=== PATIENT | male | born 1955 | race Caucasian/White ===

== ENCOUNTER 2020-04-25 12:54 | Outpatient (CLI) | payer MEDICARE, MEDICAID, SELFPAY ==
--- NOTE | ~2020-04-25 | CT_ITS ---
EXAMINATION:CT chest w con DATE: 04/25/2020 13:31 INDICATION: Pneumonia, unspecified organism. TECHNIQUE: Computed tomography (CT) of the chest was performed with 75 mL Omnipaque 350 intravenous c ontrast. Automated exposure control and iterative reconstruction technique were employed. The dose-le ngth product (DLP) was 142.68 mGy-cm. COMPARISON: None. FINDINGS: There is moderate emphysema. There is mild bronchiectasis in the inferior lungs. There are reticular and groundglass opacities with volume loss in the basilar lower lobes and lingula, likely a telectasis. There are groundglass and airspace opacities with volume loss in right middle lobe, consi stent with atelectasis versus pneumonia. Calcified bilateral lung nodules are consistent with old gra nulomatous disease. There are airspace opacities at the lung apices. There is mild atelectasis in the upper lobes. No pleural effusion. There is a large sliding hiatal hernia. There is mild atrophy of t he kidneys. The heart size is normal. There are coronary artery calcifications. No pericardial effusi on. There is mild intrahepatic biliary duct dilatation. The common duct is dilated to 21 mm. The visu alized portion of the gallbladder is normal. There is 13 degrees dextroscoliosis of thoracolumbar spi ne. There is severe cervical spondylosis and moderate thoracic spondylosis. There are chronic vertebr al body fractures at most levels of thoracic spine. A burst fracture of T7 with 3/5 loss of height ma y be subacute or chronic. A burst fracture of T12 with 2/5 loss of height and retropulsion of bone 3 mm into central spinal canal may be subacute or chronic. IMPRESSION: 1. Mild atelectasis versus pneumonia in right middle lobe. 2. Airspace opacities at the lung apices, most likely scarring. Comparison with outside imaging is re commended to exclude any change to suggest malignancy. 3. Moderate emphysema. 4. Large sliding hiatal hernia. Reviewed, dictated and finalized at location A. UNDERWRITER IMPRESSION: 1. Mild atelectasis versus pneumonia in right middle lobe. 2. Airspace opacities at the lung apices, most likely scarring. Comparison with outside imaging is recommended to exclude any change to suggest malignancy. 3. Moderate emphysema. 4. Large sliding hiatal hernia.
[2020-04-25 13:25] LABS: Estimated Glomerular Filt Rate 41
== END 2020-04-25 12:55 | disposition home or self-care (01) ==
PROVIDERS: PCP Family Medicine; Visit Provider Internal Medicine Critical Care Medicine
DX: J18.9 Pneumonia, unspecified organism (principal); J43.9 Emphysema, unspecified; K44.9 Diaphragmatic hernia without obstruction or gangrene
CPT/HCPCS: 71260; Q9967

== ENCOUNTER 2020-05-02 12:36 | Outpatient (CLI) | payer MEDICARE, MEDICAID, SELFPAY ==
[2020-05-02 13:28] LABS: Anion Gap 10 mmol/L (8-16); Blood Urea Nitrogen 23 mg/dL (9-20); Calcium 9.2 mg/dL (8.4-10.2); Carbon Dioxide 29 mmol/L (22-30); Chloride 98 mmol/L (98-107); Estimated Glomerular Filt Rate 55; Glucose 90 mg/dL (75-110); Potassium 3.1 mmol/L (3.4-5.0); Sodium 137 mmol/L (137-145)
== END 2020-05-02 12:37 | disposition home or self-care (01) ==
PROVIDERS: PCP Family Medicine; Visit Provider Internal Medicine Critical Care Medicine
DX: B19.20 Unspecified viral hepatitis C without hepatic coma (principal); Z79.899 Other long term (current) drug therapy
CPT/HCPCS: 36415; 80048

== ENCOUNTER 2020-06-21 11:50 | Emergency (ER) | payer MEDICARE, MEDICAID, SELFPAY ==
--- NOTE | ~2020-06-21 | XR_ITS ---
EXAMINATION: XR ribs RT 2V DATE: 06/21/2020 12:24 INDICATION: Posterior right rib pain post fall TECHNIQUE: 3 views of the right ribs were obtained. COMPARISON: Chest CT dated 04/25/2020 FINDINGS: Nondisplaced fractures of the anterior right 8th - 11th ribs. A few small calcified nodules in the ri ght lung consistent with old granulomatous disease. No focal airspace opacities, pulmonary edema, ple ural effusion or pneumothorax. Heart size is normal. Large hiatal hernia. Multiple chronic thoracic a nd lumbar compression and burst fractures. IMPRESSION: 1. Nondisplaced anterior right 8th - 11th rib fractures. No acute cardiopulmonary disease. 2. Large hiatal hernia. 3. Multiple chronic thoracic and lumbar compression and burst fractures. Reviewed, dictated and finalized at location B. S SANDER [employer]T IMPRESSION: 1. Nondisplaced anterior right 8th - 11th rib fractures. No acute cardiopulmona ry disease. 2. Large hiatal hernia. 3. Multiple chronic thoracic and lumbar compression and burst fractures.
[2020-06-21 11:58] VITALS: BP 115/86; PULSE 87; RESP 16; TEMP 36.8; O2SAT 95
--- NOTE | 2020-06-21 12:09 | ED.FALL ---
HPI - Fall General Chief Complaint: Fall Stated Complaint: rib pain from fall Time Seen by Provider: 06/21/20 12:09 Source: patient and RN notes reviewed History of Present Illness HPI Narrative: Patient is a 65-year-old male who presents the urgent care with complaints of right rib pain. Patient states that he fell against the armrest of the couch yesterday while trying to get up off the couch, and his right leg giving out. Patient states that he slammed down fairly hard on the armrest and has been using Aleve/ice for pain control. Patient denies of any shortness of breath. States that it is difficult to take a deep breath/use inhalers, due to the pain. No other acute complaints. No acute distress noted. Patient aware of the plan of care. Some parts of this dictation were generated by voice recognition software and may contain typographical and/or grammatical inaccuracies. Related Data Home Medications Medication Instructions Recorded Confirmed methadone 10 mg tablet 10 mg PO Q6H 01/24/20 06/21/20 Allergies Allergy/AdvReac Type Severity Reaction Status Date / Time No Known Allergies Allergy Verified 06/21/20 12:09 Review of Systems Review of Systems: Narrative: CONSTITUTIONAL: Denies fever, chills, or sweats. EYES: Denies visual changes, redness, or discharge. ENT: Denies rhinorrhea, congestion, sore throat, or otalgia. CARDIOVASCULAR: Denies chest pain, palpitations, or edema. RESPIRATORY: Denies cough or dyspnea. GASTROINTESTINAL: Denies abdominal pain, nausea, vomiting, or diarrhea. GENITOURINARY: Denies dysuria or hematuria. SKIN: Denies rash or itching. MUSCULOSKELETAL: Reports of right sided rib pains. Denies back pain, joint pain, or myalgia. NEUROLOGIC: Denies headache, numbness, or weakness. All other systems reviewed are negative, except as documented in HPI. [facility] Past Medical History Medical History (Updated 06/21/20 @ 12:43 by NANDA Bain) Anxiety Arthritis COPD (chronic obstructive pulmonary disease) Drug abuse and dependence Legionella pneumonia Prostate disorder Thyroid disorder Family History Family History Mother No problems noted. Father Emphysema, unspecified Grandparent AA (alcohol abuse) Sibling No problems noted. Social History Social History Smoking packs per day: 2 Smoking cigarettes per day: 40.0 Years smoked: 30 Smoking pack-years: 60.00 Smoking status: Former smoker Tobacco type: e-cigarettes/vaping Alcohol intake: former Drinks per week: 0 Substance use: former Substance use type: does not use and IV drugs Comments At the time of my signature, I reviewed and agree with the nursing past medical, surgical, social, and family history. There is no relevant family history pertinent to the patient complaint. Exam Narrative: Exam Narrative: GENERAL: This is a well-nourished, well-developed patient, in no apparent distress. HEAD: normocephalic, atraumatic. EYES: PERRL. Sclera clear/white. Vision is grossly intact. EARS: External ears normal NOSE: External nose normal with no obvious nasal discharge, nares without redness, no rhinorrhea. THROAT: Mucous membranes moist NECK: Neck supple CARDIOVASCULAR: Regular rate and rhythm without murmurs, gallops, or rubs. RESPIRATORY: Clear to auscultation. Breath sounds equal bilaterally. No wheezes, rales, or rhonchi. SKIN: warm, intact with no suspicious lesions or rash, good texture and turgor. NEURO: awake, alert, and oriented to person, place and time. There were no obvious focal neurologic abnormalities. EXTREMITIES: No clubbing, cyanosis, or edema. BACK: Mild tenderness to posterior right rib cage, and thoracic region. Course Vital Signs Vital signs: Vital Signs Temperature 98.2 F 06/21/20 11:58 Pulse Rate 87 06/21
[2020-06-21 12:13] VITALS: BP 115/86; PULSE 87; RESP 16; TEMP 36.8; O2SAT 95
== END 2020-06-21 12:48 | disposition home or self-care (01) ==
PROVIDERS: Emergency Provider Nurse Practitioner Family; PCP Family Medicine
DX: S22.41XA Multiple fractures of ribs, right side, initial encounter for closed fracture (principal); W19.XXXA Unspecified fall, initial encounter; M19.90 Unspecified osteoarthritis, unspecified site; J44.9 Chronic obstructive pulmonary disease, unspecified; F32.9 Major depressive disorder, single episode, unspecified; F41.9 Anxiety disorder, unspecified; K21.9 Gastro-esophageal reflux disease without esophagitis; E03.9 Hypothyroidism, unspecified
CPT/HCPCS: 71100; 99213; G0463

== ENCOUNTER 2020-08-07 10:06 | Outpatient (CLI) | payer MEDICARE, MEDICAID, SELFPAY ==
--- NOTE | 2020-08-07 10:18 | ECG_ITS ---
Measurements Intervals [place] Rate: 62 P: 66 NH: 134 QRS: 54 QRSD: 98 T: 14 QT: 420 QTc: 429 Interpretive Statements SINUS RHYTHM DELAYED PRECORDIAL R/S TRANSITION BORDERLINE T WAVE ABNORMALITY- INFERIOR LEADS BASELINE ARTIFACT- I, II, III, AVR, AVL, AVF, V1-V6 BORDERLINE ECG Electronically Signed On 08-07-2020 10:36:46 CDT by Yrn Dubois D.O.
== END 2020-08-07 10:07 | disposition home or self-care (01) ==
LOC: ANHSURGERY 10:12
PROVIDERS: PCP Family Medicine; Visit Provider Surgery
DX: Z01.810 Encounter for preprocedural cardiovascular examination (principal); K40.90 Unilateral inguinal hernia, without obstruction or gangrene, not specified as recurrent; Z87.891 Personal history of nicotine dependence
CPT/HCPCS: 36415; 86850; 86900; 86901; 93005

== ENCOUNTER → 2020-08-10 01:59 | Outpatient (CLI) | payer MEDICARE, MEDICAID, SELFPAY ==
[2020-08-10 19:28] LABS: SARS-CoV-2 RNA PCR Negative
== END ==
PROVIDERS: PCP Family Medicine; Visit Provider Surgery
DX: Z01.812 Encounter for preprocedural laboratory examination (principal); Z20.822 Contact with and (suspected) exposure to COVID-19
CPT/HCPCS: C9803; U0003; U0005

== ENCOUNTER 2020-08-13 01:50 | Day surgery (SDC) | payer MEDICARE, MEDICAID, SELFPAY ==
[2020-08-06 13:25] VITALS: BMI 19.3
[2020-08-13] VITALS (11 sets, daily range): BP systolic 117–142; BP diastolic 70–99; PULSE 70–101; RESP 12–16; TEMP 36.2–36.4; O2SAT 94–99
[2020-08-13] MEDS: ACETAMINOPHEN 500 MG TABLET 1000 MG PO (08:10)
--- NOTE | 2020-08-13 08:11 | WPDANESEPPF ---
Anes - Initial Pre Proc Eval Procedure: Operation Date: 08/13/20 09:30 Proposed Procedures p Robotic Assisted Laparoscopic Right Inguinal Hernia Repair with Mesh - Katerine Kevin MD Date/Time: 08/13/20 08:11 Surgeon: Katerine Kevin MD Pre Op Diagnosis: right inguinal hernia W/O obstruction or gangrene Patient Data Age: 65 Gender: M Height: 5 ft 10 in Weight: 60.5 kg Allergies Allergy/AdvReac Type Severity Reaction Status Date / Time No Known Allergies Allergy Verified 08/13/20 07:55 Home Medications Medication Instructions Recorded Confirmed Type methadone 10 mg tablet 120 mg PO DAILY 01/24/20 08/13/20 History fluticasone furoate 100 1 inh INHALATION DAILY #30 ea 04/06/20 08/13/20 Rx mcg-vilanterol 25 mcg/dose inhalation powder umeclidinium 62.5 mcg/actuation 1 inh INHALATION DAILY #30 ea 04/06/20 08/13/20 Rx blister powder for inhalation omeprazole 20 mg capsule,delayed 20 mg PO DAILY #30 cap 05/07/20 08/06/20 Rx release albuterol sulfate 90 mcg/actuation 2 puff INHALATION Q4H PRN #18 gm 05/14/20 08/06/20 Rx aerosol inhaler levothyroxine 75 mcg tablet 75 mcg PO DAILY #30 tablet 06/08/20 08/13/20 Rx sertraline 100 mg tablet 100 mg PO DAILY #90 tablet 06/15/20 08/13/20 Rx clonazepam 0.5 mg tablet 0.5 mg PO TID PRN #90 tablet 06/22/20 08/13/20 Rx tamsulosin 0.4 mg capsule See Rx Instructions .ROUTE 07/30/20 08/06/20 Rx .COMPLEX #60 cap celecoxib 200 mg PO HS 08/06/20 08/13/20 History mirtazapine 15 mg PO HS 08/06/20 08/13/20 History ufjgldlf-qoa-QF-lycopen-lutein 1 tablet PO DAILY 08/06/20 08/13/20 History [Complete Men 50 Plus] potassium chloride 10 meq PO HS 08/06/20 08/06/20 History Patient hx anesthesia problems: none Family hx anesthesia problems: none PMFSH Past Medical History Medical History Anxiety Arthritis COPD (chronic obstructive pulmonary disease) Drug abuse and dependence Legionella pneumonia Prostate disorder Thyroid disorder Family History Family History Mother No problems noted. Father Emphysema, unspecified Grandparent AA (alcohol abuse) Sibling No problems noted. Social History Social History Smoking packs per day: 2 Smoking cigarettes per day: 40.0 Years smoked: 30 Smoking pack-years: 60.00 Smoking status: Former smoker Tobacco type: cigarettes and e-cigarettes/vaping Smoking end date: 05/25/12 Additional smoking assessment comments: CURRENTLY E-CIGARETTES/VAPING Alcohol intake: former Drinks per week: 0 Alcohol use details: QUIT DRINKING 2012 Substance use: former Substance use type: former substance user Last use: 2004 Living arrangements: with family Spiritual care concerns: No Anes - Eval Final PreProcedure Day of Procedure 08/13/20 08:11 Patient weight: normal Heart: regular rate and rhythm Lungs: clear to auscultation Airway: Mallampati scale class II Neurological: alert and oriented Last oral intake: >/= 8 hours ASA classification: III Emergent: no Anesthetic plan: proceed Anesthesia type and monitoring: general ETT and standard monitoring Informed Consent: The patient's anesthetic plan and its attendant risks and benefits were discussed with the patient/family/POA. Questions were solicited and answers provided to the satisfaction of the patient/family/POA.
[2020-08-13] MEDS: LACTATED RINGERS 1,000 ML 30 ML IV CONT ×2 (08:18→11:15)
[2020-08-13] MEDS: KETOROLAC 15 MG/ML VIAL (*BKC) IV PUSH (08:20)
--- NOTE | 2020-08-13 08:26 | WPDHPUPDATE1 ---
History and Physical Update Update Date/Time: 08/13/20 08:26 History and Physical has been reviewed, including an updated exam of the patient. There are NO changes in the patient's condition. Risks, benefits, and alternatives have been discussed and questions answered. Patient agrees to proceed with procedure.
[2020-08-13] MEDS: ceFAZolin 2 GM/D5W 50 ML 2 GM/50 ML BAG IVPB (08:32)
[2020-08-13] MEDS: BUPIVACAINE/EPINEPHRINE 0.5% 30 ML VIAL INFILTRATE (08:56)
--- NOTE | 2020-08-13 10:30 | PM.PROC ---
Procedure Note - Detailed Date of procedure: 08/13/20 Pre-op diagnosis: right inguinal hernia W/O obstruction or gangrene Post-op diagnosis: same Procedure performed: robotic assisted right inguinal hernia repair Description of procedure: Patient was brought into the operating room and placed in the supine position. After adequate induction of general anesthesia, the patient was prepped and draped in normal sterile fashion. A time-out was then done to verify the patient's identity, as well as the procedure being performed. Began by making a 8 mm incision in the supraumbilical region, a Veress needle was then placed into the peritoneal cavity. CO2 gas was then insufflated and after adequate pneumoperitoneum was achieved, the Veress needle was removed. I then placed an 8 mm trocar through this incision. I then placed the endoscope through this trocar site and under direct visualization placed 2 further 8 mm ports in the right and left mid abdomen. The [employer] robot was then docked to the 3 trocar sites. I then scrubbed out and went to the robotic console. Upon examining the pelvis, it was noted that the patient had a large right inguinal hernia. I began by making a preperitoneal flap approximately 6 cm superior to the defect. This flap was carried medially past the umbilical ligaments in laterally to the transversalis. It then began dissection of my medial compartment taking this down to the pubic tubercle. I then began the lateral dissection taking this down to the transversalis fascia. Once these compartments were achieved, I began dissection around the cord structures. It was noted at this point that the patient had a indirect hernia. Patient also had a large lipoma the cord. Using careful dissection, was able to reduce the lipoma cord as well separate the indirect hernia off the cord structures. Once this was adequately done, I went ahead and placed a 15 x 10 piece of Pro Rejoiner mesh into the abdominal cavity. The mesh was carefully positioned, centering the center of the mesh over the indirect defect. Once this was done, was very satisfied with our repair. I then closed the peritoneal flap with a running 2.0 V Lock suture. The abdomen was then desufflated, and all ports were removed. All incisions were then closed with the 4.0 monocryl suture. Dermabond was placed on each wound. The patient tolerated the procedure well, was extubated in the operating room postoperatively, and will now be transferred to the recovery room in stable condition. Implants: 15 x 10 progrip mesh Anesthesia: GETA Surgeon: Katerine Kevin MD Estimated blood loss (mL): 5 Drains: No Packing: No Pathology: none sent Complications: No immediate complications Condition: stable Disposition: PACU Findings: indirect RIH c large lipoma of the cord
[2020-08-13] MEDS: fentaNYL CITRATE INJ (*CRX) 100 MCG/2 ML VIAL 25 MCG IV PUSH ×2 (11:34→11:40)
== END 2020-08-13 13:14 | disposition home or self-care (01) ==
PROVIDERS: PCP Family Medicine; Visit Provider Surgery
PROC: 8E0Y4CZ Robotic Assisted Procedure of Lower Extremity, Percutaneous Endoscopic Approach (ICD-10-PCS; CPT 49650; principal; 2020-08-13 09:30)
DX: K40.90 Unilateral inguinal hernia, without obstruction or gangrene, not specified as recurrent (principal); Z79.51 Long term (current) use of inhaled steroids; F41.9 Anxiety disorder, unspecified; M19.90 Unspecified osteoarthritis, unspecified site; J44.9 Chronic obstructive pulmonary disease, unspecified; N42.9 Disorder of prostate, unspecified; E07.9 Disorder of thyroid, unspecified; Z87.891 Personal history of nicotine dependence; B19.20 Unspecified viral hepatitis C without hepatic coma; F19.20 Other psychoactive substance dependence, uncomplicated
CPT/HCPCS: 49650; S2900; 36415; 86850; 86900; 86901; 93005; A9270; C1781; C9803; J0330; J0690; J1100; J1885; J2370; J2405; J2704; J2710; J3010; J7030; J7120; U0003; U0005

== ENCOUNTER 2020-10-09 11:01 | Outpatient (CLI) | payer MEDICARE, MEDICAID, SELFPAY ==
--- NOTE | ~2020-10-09 | CT_ITS ---
EXAMINATION: CT diagnostic chest wo con DATE: 10/09/2020 11:21 INDICATION: Pneumonia, unspecified organism TECHNIQUE: Computed tomography (CT) of the chest was performed without intravenous contrast. The dose -length product (DLP) was 428.99 mGy-cm. Automated exposure control and iterative reconstruction tech nique were employed. COMPARISON: 04/25/2020 FINDINGS: Airspace opacities of the lung apices persists without significant change. There is moderat e emphysema. There is a new 7 mm groundglass nodule of the right middle lobe on image 42. A new 12 mm nodule of the lingula seen on image 46. There are persistent but decreased groundglass opacities in the mid and lower lung zones. There is a large sliding hiatal hernia. There are mildly enlarged preca rinal and right lower paratracheal lymph nodes. The heart size is normal. There is no pleural effusio n or pneumothorax. Calcified coronary artery atherosclerosis is noted. Multiple stable thoracic verte bral body fractures are again seen. IMPRESSION: 1. Stable airspace opacities of the lung apices, likely scarring. 2. Waxing and waning opacities in the mid and lower lung zones including new nodules in the right mid dle lobe and lingula, likely chronic infection. 3. Mild mediastinal lymphadenopathy, likely reactive. 4. Large sliding hiatal hernia. Reviewed, dictated and finalized at location A. IMPRESSION: 1. Stable airspace opacities of the lung apices, likely scarring. 2. Waxing and waning opacities in the mid and lower lung zones including new no dules in the right middle lobe and lingula, likely chronic infection. 3. Mild mediastinal lymphadenopathy, likely reactive. 4. Large sliding hiatal hernia.
== END 2020-10-09 11:02 | disposition home or self-care (01) ==
PROVIDERS: PCP Family Medicine; Visit Provider Nurse Practitioner Family
DX: J18.9 Pneumonia, unspecified organism (principal); K44.9 Diaphragmatic hernia without obstruction or gangrene
CPT/HCPCS: 71250

== ENCOUNTER 2020-11-02 10:57 | Outpatient (CLI) | payer MEDICARE, MEDICAID, SELFPAY | END 2020-11-02 10:58 | disposition home or self-care (01) | PROVIDERS: PCP Family Medicine; Visit Provider Nurse Practitioner Family | DX: R09.3 Abnormal sputum (principal) | CPT/HCPCS: 87070; 87077; 87186; 87205 ==

== ENCOUNTER 2020-11-30 10:48 | Outpatient (CLI) | payer MEDICARE, MEDICAID, SELFPAY | END 2020-11-30 10:49 | disposition home or self-care (01) | LOC: ANHLAB 10:53 | PROVIDERS: PCP Family Medicine; Visit Provider Nurse Practitioner Family | DX: R09.3 Abnormal sputum (principal); J18.9 Pneumonia, unspecified organism | CPT/HCPCS: 87070; 87077; 87186; 87205 ==

== ENCOUNTER 2020-12-03 15:19 | Outpatient (CLI) | payer MEDICARE, MEDICAID, SELFPAY ==
--- NOTE | ~2020-12-03 | US_ITS ---
EXAMINATION: US renal BI EXAM DATE: 12/03/2020 15:49 INDICATION: Acute injury to kidney. TECHNIQUE: Multiple grayscale and Doppler images of the kidneys were obtained (by a technologist who performed the scan) and subsequently reviewed. There is no prior study for comparison. FINDINGS: There is bilateral renal cortical thinning. Right kidney: There is normal contour and echogenicity. It measures 7.4 x 4.6 x 3.8 centimeters. Th ere are no focal renal lesions identified. There is no hydronephrosis. Left kidney: There is normal contour and echogenicity. It measures 7.8 x 4.4 x 4.6 centimeters. The re are no focal renal lesions identified. There is no hydronephrosis. The bladder is undistended, with wall measuring 7 mm at least partly due to undistended state. IMPRESSION: 1. Bilateral renal cortical thinning, and decreased kidney measured measurements, renal atrophy. 2. No hydronephrosis. Reviewed, dictated and finalized at location A. IMPRESSION: 1. Bilateral renal cortical thinning, and decreased kidney measured measuremen ts, renal atrophy. 2. No hydronephrosis.
== END 2020-12-03 15:20 | disposition home or self-care (01) ==
LOC: ANHIMG 15:20
PROVIDERS: PCP Family Medicine; Visit Provider Internal Medicine Nephrology
DX: J42 Unspecified chronic bronchitis (principal); K21.9 Gastro-esophageal reflux disease without esophagitis; N17.9 Acute kidney failure, unspecified; E03.9 Hypothyroidism, unspecified; Z72.0 Tobacco use; N26.1 Atrophy of kidney (terminal)
CPT/HCPCS: 76775

== ENCOUNTER 2020-12-25 11:05 | Outpatient (CLI) | payer MEDICARE, MEDICAID, SELFPAY ==
[2020-12-25 19:48] LABS: Basophils Absolute Auto 0.1 K/mm3 (0.0-0.1); Eosinophils Absolute Auto 0.4 K/mm3 (0-0.3); Eosinophils Percent Auto 4.3 % (0-4.4); Hematocrit 42.9 % (42.0-52.0); Hemoglobin 13.3 g/dL (14.0-18.0); Immature Granulocyte Absolute 0.07 K/mm3 (0.00-0.031); Immature Granulocyte Percent A 0.8 % (0-0.5); Lymphocytes Percent Auto 11.9 % (18.3-44.2); Mean Corpuscular Hemoglobin 29.6 pg (26-34); Mean Corpuscular Volume 95.5 fl (80-100); Mean Platelet Volume 10.2 fl (7.4-10.4); Monocytes Absolute Auto 0.5 K/mm3 (0.1-0.6); Monocytes Percent Auto 6.1 % (2.6-8.5); Neutrophils Absolute Auto 6.4 K/mm3 (1.3-6.7); Neutrophils Percent Auto 75.9 % (45.5-73.1); Platelet Count Result 166 k/mm3 (150-375); Red Blood Count 4.49 M/mm3 (4.6-6.20); Red Cell Distribution Width 13.8 % (11.5-14.5); White Blood Count 8.4 K/mm3 (4.5-10.0)
[2020-12-25 20:46] LABS: Hemoglobin A1C 5.2 % (<5.7)
[2020-12-25 21:03] LABS: Alanine Aminotransferase 17 U/L (4-50); Albumin Level 4.1 g/dL (3.5-5.1); Alkaline Phosphatase 71 U/L (38-126); Anion Gap 8 mmol/L (8-16); Aspartate Amino Transferase 31 U/L (17-59); Bilirubin,Total 0.6 mg/dL (0.2-1.3); Blood Urea Nitrogen 13 mg/dL (9-20); Calcium 9.5 mg/dL (8.4-10.2); Carbon Dioxide 25 mmol/L (22-30); Chloride 107 mmol/L (98-107); Cholesterol 208 mg/dL (0-200); Estimated Glomerular Filt Rate > 60; Glucose 78 mg/dL (65-110); HDL Direct 87 mg/dL; Sodium 140 mmol/L (137-145); Triglycerides 137 mg/dL (<150)
[2020-12-25 21:14] LABS: LDL Cholesterol Direct 92 mg/dL
[2020-12-25 21:33] LABS: Prostate Specific Antigen 0.5 ng/mL (< OR = 4.0)
== END 2020-12-25 11:06 | disposition home or self-care (01) ==
LOC: ANHBWCLAB 11:08
PROVIDERS: PCP Family Medicine; Visit Provider Family Medicine
DX: E07.9 Disorder of thyroid, unspecified (principal); F41.9 Anxiety disorder, unspecified; J44.9 Chronic obstructive pulmonary disease, unspecified; F19.20 Other psychoactive substance dependence, uncomplicated; Z12.5 Encounter for screening for malignant neoplasm of prostate; R73.09 Other abnormal glucose; Z79.899 Other long term (current) drug therapy
CPT/HCPCS: 36415; 80053; 80061; 83036; 84153; 84443; 85025; G0103

== ENCOUNTER 2021-03-15 13:02 | Emergency (ER) | payer MEDICARE, MEDICAID, SELFPAY ==
[2021-03-15 13:11] VITALS: BP 161/87; PULSE 79; RESP 20; TEMP 36.8; O2SAT 98
--- NOTE | 2021-03-15 13:31 | ED.ABDPAIN ---
HPI - Abdominal Pain General Chief Complaint: Abdominal Pain Stated Complaint: Abdominal Pain Time Seen by Provider: 03/15/21 13:32 Source: patient and RN notes reviewed Mode of arrival: ambulatory Limitations: no limitations History of Present Illness HPI narrative: 65-year-old male presents concern for periumbilical abdominal pain and mass. Reports history of inguinal hernia surgery in July, reports after the surgery that hernia popped out again, however was not painful. He reports over the last several days he has had new pain in the periumbilical area with a mass. He denies any vomiting. Reports nausea. Reports his last bowel movement was 2 days ago. He denies relieving factors. He denies fever. MD elicited complaint: abdominal pain Related Data Home Medications Medication Instructions Recorded Confirmed methadone 10 mg tablet 120 mg PO DAILY 01/24/20 10/10/20 Complete Men 50 Plus 1 tablet PO DAILY 08/06/20 10/10/20 celecoxib 200 mg PO HS 08/06/20 10/10/20 Allergies Allergy/AdvReac Type Severity Reaction Status Date / Time No Known Allergies Allergy Verified 12/25/20 10:13 Review of Systems Review of Systems: CONSTITUTIONAL: Denies malaise, chills, sweats, or fever. GASTROINTESTINAL: Reports periumbilical pain, nausea, constipation. Denies vomiting, diarrhea, bloody, or mucous stools. GENITOURINARY: Denies dysuria or hematuria. SKIN: Denies bruising, redness, warmth MUSCULOSKELETAL: Denies myalgia. All systems reviewed & are unremarkable except as noted in HPI and below PMFSH Past Medical History Medical History Anxiety Arthritis COPD (chronic obstructive pulmonary disease) Drug abuse and dependence Legionella pneumonia Prostate disorder Thyroid disorder Surgical History Surgical History H/O inguinal hernia repair robotic assisted right inguinal hernia repair Family History Family History Mother No problems noted. Father Emphysema, unspecified Grandparent AA (alcohol abuse) Sibling No problems noted. Social History Social History Smoking packs per day: 2 Smoking cigarettes per day: 40.0 Years smoked: 30 Smoking pack-years: 60.00 Smoking status: Current every day smoker Tobacco type: e-cigarettes/vaping Additional smoking assessment comments: CURRENTLY E-CIGARETTES/VAPING Alcohol intake: former Drinks per week: 0 Alcohol use details: QUIT DRINKING 2012 Substance use: former Substance use type: former substance user Last use: 2004 Spiritual care concerns: No Comments At time of signature, agree with nursing past medical, surgical, social and family history. There is no relevant family history pertinent to the presenting complaint Exam Narrative: GENERAL: Well-appearing, well-nourished, and in no acute distress. HEAD: Normocephalic, atraumatic. EYES: PERRLA, conjunctivae clear ENT: Nares clear. Mucous membranes moist. NECK: Supple. No lymphadenopathy CHEST: Speaks in full sentences. No respiratory distress. HEART: Regular rate and rhythm. ABDOMEN: Periumbilical mass noted, nonreducible with gentle pressure, tenderness, guarding. No rebound tenderness, or rigid. No pulsatilla masses. Bowel sounds present in all four quadrants. SKIN: Warm, dry, no rash. NEURO: Alert and oriented x3. PSYCH: Normal mood and affect Course Course Emergency Course: While waiting to be seen, patient spoke to his surgeon's office who suggested he be transferred to the emergency room. Patient is aware of diagnosis, understands and agrees to treatment plan. Anticipatory guidance given. Patient agrees to follow-up as directed and is aware of reasons to seek care at the emergency department. Portions of th
== END 2021-03-15 13:38 | disposition short-term general hospital (02) ==
PROVIDERS: Emergency Provider Nurse Practitioner; PCP Family Medicine
DX: K46.9 Unspecified abdominal hernia without obstruction or gangrene (principal); F17.290 Nicotine dependence, other tobacco product, uncomplicated; M19.90 Unspecified osteoarthritis, unspecified site; J44.9 Chronic obstructive pulmonary disease, unspecified; N42.9 Disorder of prostate, unspecified; E07.9 Disorder of thyroid, unspecified; F41.9 Anxiety disorder, unspecified
CPT/HCPCS: 99212; G0463

== ENCOUNTER 2021-03-15 14:33 | Inpatient (IN) | payer MEDICARE, MEDICAID, SELFPAY ==
--- NOTE | ~2021-03-15 | MR_ITS ---
EXAMINATION: MR MRCP wo/w con/w 3D wo ind DATE: 03/16/2021 10:46 INDICATION: Cholelithiasis, biliary dilatation on CT TECHNIQUE: Magnetic resonance imaging (MRI) of the abdomen was performed without and with intravenous contrast. Sequences included coronal T2-weighted SS-FSE ARC, coronal T2-weighted FS SS-FSE, coronal T2-weighted 2D FS FIESTA, Water:Coronal LAVA-Flex, sagittal T2-weighted SS-FSE ARC, axial SSFSE ARC, axial 3D DualEcho, axial DWI B=600, axial T1-weighted LAVA, FAT:Coronal LAVA-Flex, and coronal in and opposed phase LAVA-Flex. Thick-slab T2-weighted FRFSE-XL images were obtained for magnetic resonance cholangiopancreatography (MRCP). Maximum intensity projection 3-D reconstructions of the volumetric data were created by the technologist. Postcontrast sequences included a time course of axial T1-weig hted LAVA, FAT:Coronal LAVA-Flex, coronal in and opposed phase LAVA-Flex, and Water:Coronal LAVA-Flex . COMPARISON: CT, 03/15/2021, 04/25/2020 CONTRAST: Multihance, 10 cc FINDINGS: ABDOMEN MRI: There is a large sliding hiatal hernia. The liver, spleen, pancreas, gallbladder, and ad renal glands are normal. There is a 1.5 cm cyst of the left kidney. Cysts of the right kidney measure up to 2 mm. There are no pathologically enlarged abdominal lymph nodes. There are no dilated loops o f bowel. There is a tiny umbilical hernia containing fat and ascites. An enhancing 1.8 cm soft tissue density protrudes into the bladder base as described on CT. This is at the inferior margin of the im aged anatomy and incompletely characterized. Chronic burst and compression fractures of the thoracic and lumbar spine are again noted. ABDOMEN MRCP: Respiratory motion artifact limits the MRCP sequences. There is intrahepatic and extrah epatic biliary dilatation with the common bile duct measuring up to 2.2 cm. When compared with a CT 2019, this appears to be a chronic finding. The distal common bile duct demonstrates an acute cur vature before entering the ampulla. There is a questionable 2 mm stone of the distal common bile duct . IMPRESSION: 1. Intrahepatic and extrahepatic biliary dilatation with possible 2 mm stone of the distal common evi e duct. 2. Large sliding hiatal hernia. 3. 1.8 cm soft tissue density projecting into the bladder base, incompletely characterized. Consider direct visualization. Reviewed, dictated and finalized at location A. IMPRESSION: 1. Intrahepatic and extrahepatic biliary dilatation with possible 2 mm stone of the distal common bile duct. 2. Large sliding hiatal hernia. 3. 1.8 cm soft tissue density projecting into the bladder base, incompletely ch aracterized. Consider direct visualization.
--- NOTE | ~2021-03-15 | CT_ITS ---
EXAMINATION: CT abdomen pelvis w con DATE: 03/15/2021 16:30 INDICATION: Bowel perforation TECHNIQUE: Computed tomography (CT) of the abdomen and pelvis was performed with 100 mL Omnipaque-350 intravenous contrast. Automated exposure control and iterative reconstruction technique were employe d. The dose-length product was 302.52 mGy-cm. COMPARISON: PET/CT dated 10/09/2020 FINDINGS: Emphysema at the lung bases. Compressive atelectasis at the medial left lower lobe along side a large included visualized sliding-type hiatal hernia. Heart size normal. Atherosclerotic coronary artery c alcification. No pericardial or pleural effusion. Gallbladder is normal. Common bile duct is dilated to 1.5 similar with mild intrahepatic biliary duct al dilation. Suggestion of obstructing stone/stones at the distal common bile duct. Couple tiny dystr ophic calcifications at the head and body of the pancreas likely sequela of chronic pancreatitis. No peripancreatic inflammatory stranding to suggest acute interstitial pancreatitis. Spleen and bilatera l adrenal glands are normal. Bilateral low-attenuation renal cysts the largest on the left measuring 1.4 cm. Normal appendix. No bowel obstruction. 1.8 cm enhancing nodule at the base of the bladder projecting into the lumen, unclear whether this arises from the bladder wall or from the underlying prostate wit h their multiple metallic either surgical clips or radiotherapy seeds. There are a few posterior blad felipe diverticula, one on the left containing a bladder stone. There is asymmetric thickening of the di stalmost left ureter. Small fat-containing umbilical and left inguinal hernias. There is calcified atherosclerosis of the a tyrese and many of the other arteries. No free intraperitoneal gas or fluid. No pathologically enlarged abdominal or pelvic lymphadenopathy. Mild thoracolumbar dextroscoliosis with mild to moderate spondy losis. Diffuse osteopenia. Chronic mild T12 and L3 compression fractures and L1 burst fracture with m ild anterior vertebral body height loss and 3-4 mm retropulsion resulting in mild central canal steno sis. Severe right and mild to moderate left hip osteoarthritis.. IMPRESSION: 1. Intra and extra hepatic biliary ductal dilation with suggestion of possible stones in the distal c ommon bile duct. Correlate with liver function tests and consider MRCP for further evaluation. Althou gh there is no peripancreatic inflammatory stranding there are tiny dystrophic pancreatic parenchymal calcifications suggestive of chronic pancreatitis and would also correlate with amylase and lipase l evels. 2. Large sliding-type hiatal hernia. 3. Emphysema. 4. 1.8 cm enhancing intraluminal nodule at the base of the bladder, unclear whether arising from the bladder wall or from the prostate and projecting into the lumen. There is also asymmetric thickening of the distalmost left ureter. Correlate with urinalysis and consider cystoscopy/ureteroscopy for fur ther evaluation. 5. Small fat-containing umbilical left inguinal hernias. Reviewed, dictated and finalized at location A. IMPRESSION: 1. Intra and extra hepatic biliary ductal dilation with suggestion of possible stones in the distal common bile duct. Correlate with liver function tests and consider MRCP for further evaluation. Although there is no peripancreatic infla mmatory stranding there are tiny dystrophic pancreatic parenchymal calcificatio ns suggestive of chronic pancreatitis and would also correlate with amylase and lipase levels. 2. Large sliding-type hiatal hernia. 3. Emphysema. 4. 1.8 cm enhancing intraluminal nodule at the base of the bladder, unclear whe ther arising from the bladder wall or from the prostate and projecting into the lumen. There is also as
--- NOTE | ~2021-03-15 | XR_ITS ---
EXAMINATION: XR ERCP DATE: 03/18/2021 12:48 INDICATION: Choledocholithiasis, biliary dilatation TECHNIQUE: Four intraoperative fluoroscopic images obtained during endoscopic retrograde cholangiopan creatography (ERCP) are submitted for review. Total fluoroscopic time was 213.1 seconds. COMPARISON: None. FINDINGS: Fluoroscopic images demonstrate intrahepatic and extrahepatic biliary dilatation. A balloon sweep is noted. IMPRESSION: 1. Biliary dilatation. Please refer to the ERCP procedure note for additional details. Reviewed, dictated and finalized at location A. IMPRESSION: 1. Biliary dilatation. Please refer to the ERCP procedure note for additional d etails.
[2021-03-15 14:40] VITALS: BP 115/74; PULSE 99; RESP 18; TEMP 37; O2SAT 96
[2021-03-15 15:29] LABS: Basophils Percent Auto 0.3 % (0.2-1.2); Eosinophils Percent Auto 0.1 % (0-4.4); Hematocrit 42.5 % (42.0-52.0); Hemoglobin 14.3 g/dL (14.0-18.0); Immature Granulocyte Absolute 0.06 K/mm3 (0.00-0.031); Immature Granulocyte Percent A 0.7 % (0-0.5); Lymphocytes Percent Auto 9.1 % (18.3-44.2); Mean Corpuscular HGB Conc 33.6 g/dl (32-36); Mean Corpuscular Hemoglobin 30.7 pg (26-34); Mean Corpuscular Volume 91.2 fl (80-100); Mean Platelet Volume 9.1 fl (7.4-10.4); Monocytes Absolute Auto 0.6 K/mm3 (0.1-0.6); Monocytes Percent Auto 6.3 % (2.6-8.5); Neutrophils Absolute Auto 7.4 K/mm3 (1.3-6.7); Neutrophils Percent Auto 83.5 % (45.5-73.1); Platelet Count Result 172 k/mm3 (150-375); Red Blood Count 4.66 M/mm3 (4.6-6.20); Red Cell Distribution Width 12.9 % (11.5-14.5); White Blood Count 8.8 K/mm3 (4.5-10.0)
[2021-03-15 15:30] LABS: Alanine Aminotransferase 20 U/L (4-50); Albumin Level 4.7 g/dL (3.5-5.1); Alkaline Phosphatase 58 U/L (38-126); Anion Gap 14 mmol/L (8-16); Aspartate Amino Transferase 36 U/L (17-59); Bilirubin,Total 1.1 mg/dL (0.2-1.3); Blood Urea Nitrogen 18 mg/dL (9-20); Calcium 9.5 mg/dL (8.4-10.2); Carbon Dioxide 22 mmol/L (22-30); Chloride 100 mmol/L (98-107); Estimated CRCL calculation 47 ml/min; Estimated Glomerular Filt Rate 55; Glucose 87 mg/dL (65-110); Lipase 69 U/L (23-300); Potassium 4.1 mmol/L (3.4-5.0); Sodium 136 mmol/L (137-145)
[2021-03-15 16:38] LABS: Add Urine Microscopic? YES; Appearance Urine Cloudy (Clear); Bilirubin Urine Negative (Negative); Blood Urine Negative (Negative); Color Urine Yellow (Yellow); Glucose Urine UA Negative (Negative); Ketones Urine 1+ mg/dL (Negative); Leukocyte Esterase Ur Trace LEU/UL (Negative); Mucus Urine Moderate /lpf; Nitrate Urine Negative (Negative); Protein Urine 1+ mg/dL (Negative); Specific Grav Ur 1.024 (1.001-1.035); Squamous Epithelial Cell Urine Rare /hpf (Few); Urobilinogen Urine Negative mg/dL (<2.0); WBC Urine 0-3 /hpf
[2021-03-15] MEDS: MORPHINE SULFATE (*CRX) 4 MG/ML INJ IV PUSH ×2 (16:48→23:33)
[2021-03-15] MEDS: SODIUM CHLORIDE 0.9% IV 1,000 ML 999 ML IV CONT (16:50)
[2021-03-15 17:12] LABS: Lactic Acid Reflex 1.5 mmol/L (0.7-2.1)
[2021-03-15 17:21] VITALS: BP 138/85; PULSE 74; RESP 18; O2SAT 99
--- NOTE | 2021-03-15 17:47 | ED.GENADULT ---
HPI - General Adult General Chief complaint: Abdominal Pain <KENNETH Ruth Last Filed: 03/15/21 17:53> Stated complaint: hernia <KENNETH Ruth Last Filed: 03/15/21 17:53> Time Seen by Provider: 03/15/21 15:11 <KENNETH Ruth Last Filed: 03/15/21 17:53> Source: patient, RN notes reviewed and old records reviewed <KENNETH Ruth Last Filed: 03/15/21 17:53> Mode of arrival: ambulatory <KENNETH Ruth Last Filed: 03/15/21 17:53> Limitations: no limitations <KENNETH Ruth Last Filed: 03/15/21 17:53> History of Present Illness HPI narrative: Patient is 65-year-old male who presents with abdominal pain for the last day noting decreased appetite and nausea notes he believes it was possibly umbilical hernia with a history of hernia repair notes that he was coughing making the pain worse patient denies any vomiting rectal bleeding melena presents nondistressed appears uncomfortable denies similar occurrence in the past has not been seen for this complaint patient notes he had had a prior hernia repair by Dr. Kevin <KENNETH Ruth Last Filed: 03/15/21 17:53> Related Data Home medications: Home Medications Medication Instructions Recorded Confirmed methadone 10 mg tablet 120 mg PO DAILY 01/24/20 03/15/21 Complete Men 50 Plus 1 tablet PO DAILY 08/06/20 03/15/21 celecoxib 200 mg PO HS 08/06/20 03/15/21 fluticasone furoate-vilanterol 2 inh INHALATION BID 03/15/21 03/15/21 [Breo Ellipta] oxycodone-acetaminophen 1 tablet PO Q6H PRN 03/15/21 03/15/21 tobramycin in 0.225 % NaCl See Rx Instructions .ROUTE .COMPLEX 03/15/21 03/15/21 <KENNETH Ruth Last Filed: 03/15/21 17:53> Allergies/adverse reactions: Allergies Allergy/AdvReac Type Severity Reaction Status Date / Time No Known Allergies Allergy Verified 03/15/21 14:01 <KENNETH Ruth Last Filed: 03/15/21 17:53> Review of Systems Review of Systems: All systems reviewed & are unremarkable except as noted in HPI and below <Krystian Bergeron PA-C - Last Filed: 03/15/21 17:53> PMFSH Past Medical History Medical History: Medical History Anxiety Arthritis COPD (chronic obstructive pulmonary disease) Drug abuse and dependence Legionella pneumonia Prostate disorder Thyroid disorder <Krystian Bergeron PA-C - Last Filed: 03/15/21 17:53> Surgical History Surgical History: Surgical History H/O inguinal hernia repair robotic assisted right inguinal hernia repair <Krystian Bergeron PA-C - Last Filed: 03/15/21 17:53> Family History Family History: Family History Mother No problems noted. Father Emphysema, unspecified Grandparent AA (alcohol abuse) Sibling No problems noted. <Krystian Bergeron PA-C - Last Filed: 03/15/21 17:53> Social History Social History: Social History Smoking packs per day: 2 Smoking cigarettes per day: 40.0 Years smoked: 30 Smoking pack-years: 60.00 Smoking status: Current every day smoker Tobacco type: e-cigarettes/vaping Additional smoking assessment comments: CURRENTLY E-CIGARETTES/VAPING Alcohol intake: former Drinks per week: 0 Alcohol use details: QUIT DRINKING 2012 Substance use: former Substance use type: former substance user Last use: 2004 Spiritual care concerns: No <Krystian Bergeron PA-C - Last Filed: 03/15/21 17:53> Exam Narrative: GENERAL: Ill-appearing, well-nourished, and in no acute distress. HEAD: Normocephalic, atraumatic. EYES: PERRLA and EOMI. ENT: Nares clear, no rhinorrhea or epistaxis. Mucous membranes moist. CHEST: Clear to auscultation. No r
--- NOTE | 2021-03-15 19:20 | PC.NURSE ---
Assumed care of pt at this time, report taken from Ramin Jo. Pt alert and upright on stretcher, requesting pain medication. Pt updated on POC.
[2021-03-15 20:02] VITALS: BP 147/95; PULSE 78; RESP 16; O2SAT 96
[2021-03-15] MEDS: MORPHINE SULFATE (*CRX) 4 MG/ML INJ (20:03)
--- NOTE | 2021-03-15 20:44 | ADMGEN ---
This patient, Saravanan Lanza, was admitted to Medical Room 249-01. Patient/family oriented to hospital policies and general routines including ID bracelet, bed and alarms, visiting hours, pain management, procedures, bathroom and other care routines, personal items, smoking policy, room service/diet, and visiting hours. Information on how to activate the Rapid Response Team has been discussed. Patient/Family are encouraged to report perceived risks to care and to ask questions if they do not understand what they are told or what they should do.
[2021-03-15] MEDS: LACTATED RINGERS 1,000 ML 125 ML IV CONT (21:11)
[2021-03-15 21:30] VITALS: BMI 18.9
[2021-03-15 22:30] VITALS: BP 141/80; PULSE 79; RESP 18; TEMP 36.7; O2SAT 96
[2021-03-15] MEDS: FAMOTIDINE 20 MG/2 ML VIAL IV PUSH (23:39)
[2021-03-16] MEDS: clonazePAM (*CRX) 0.5 MG TABLET PO ×3 (01:25→21:02)
[2021-03-16] MEDS: MIRTAZAPINE 15 MG TABLET PO ×2 (01:54→20:53)
[2021-03-16] MEDS: TAMSULOSIN HCL 0.4 MG CAPSULE PO ×3 (01:54→17:06)
[2021-03-16] MEDS: LEVOTHYROXINE SODIUM 75 MCG TABLET PO (05:37)
[2021-03-16] MEDS: LACTATED RINGERS 1,000 ML 125 ML IV CONT ×2 (05:37→15:59)
[2021-03-16 05:41] LABS: Basophils Absolute Auto 0.1 K/mm3 (0.0-0.1); Eosinophils Absolute Auto 0.1 K/mm3 (0-0.3); Eosinophils Percent Auto 2.1 % (0-4.4); Hematocrit 35.3 % (42.0-52.0); Hemoglobin 11.7 g/dL (14.0-18.0); Immature Granulocyte Absolute 0.03 K/mm3 (0.00-0.031); Immature Granulocyte Percent A 0.5 % (0-0.5); Lymphocytes Absolute Auto 1.74 K/mm3 (0.9-3.2); Mean Corpuscular HGB Conc 33.1 g/dl (32-36); Mean Corpuscular Hemoglobin 30.5 pg (26-34); Mean Corpuscular Volume 91.9 fl (80-100); Mean Platelet Volume 9.6 fl (7.4-10.4); Monocytes Absolute Auto 0.6 K/mm3 (0.1-0.6); Monocytes Percent Auto 10.7 % (2.6-8.5); Neutrophils Absolute Auto 3.2 K/mm3 (1.3-6.7); Neutrophils Percent Auto 55.7 % (45.5-73.1); Platelet Count Result 134 k/mm3 (150-375); Red Blood Count 3.84 M/mm3 (4.6-6.20); Red Cell Distribution Width 12.9 % (11.5-14.5); White Blood Count 5.8 K/mm3 (4.5-10.0)
[2021-03-16 06:00] VITALS: BP 111/80; PULSE 61; RESP 18; TEMP 36.4; O2SAT 96
[2021-03-16 06:07] LABS: Alanine Aminotransferase 14 U/L (4-50); Albumin Level 3.6 g/dL (3.5-5.1); Alkaline Phosphatase 44 U/L (38-126); Anion Gap 8 mmol/L (8-16); Aspartate Amino Transferase 31 U/L (17-59); Bilirubin,Total 0.8 mg/dL (0.2-1.3); Blood Urea Nitrogen 16 mg/dL (9-20); Calcium 8.8 mg/dL (8.4-10.2); Carbon Dioxide 24 mmol/L (22-30); Chloride 103 mmol/L (98-107); Estimated CRCL calculation 48 ml/min; Estimated Glomerular Filt Rate > 60; Glucose 52 mg/dL (65-110); Potassium 3.2 mmol/L (3.4-5.0); Sodium 135 mmol/L (137-145)
[2021-03-16 07:32] LABS: Glucose Point of Care 68 mg/dl (65-105)
[2021-03-16 08:09] VITALS: PULSE 74; O2SAT 98
--- NOTE | 2021-03-16 08:10 | PM.IMHP ---
H&P: HPI History of Present Illness Date/Time: 03/16/21 08:10 Chief Complaint: Abdominal pain. Narrative: This is a 65-year-old male with past medical history significant for opiate dependence, tobacco dependence, gastroesophageal reflux disease, benign prostatic hyperplasia, COPD/emphysema, hypothyroidism. Patient presented to the emergency room due to abdominal pain localized to the epigastric area nonradiating, nagging ,at the time of my visit patient rated the pain a 5/10 had nausea and vomiting for 2 days had not been able to keep anything down, denies any fevers ,any chills ,any rigors ,any diarrhea ,any constipation no weight loss ,patient states that he usually tolerates his meals well. Patient has been in his usual state of health up until this event. Preliminary workup was significant for CT of abdomen and pelvis was significant for intra and extra hepatic biliary ductal dilation with suggestion of possible stones in the distal common bile duct. Correlate with liver function tests and consider MRCP for further evaluation. Review of Systems Review of Systems: Patient presented to the emergency room due to epigastric abdominal pain nausea and vomiting unable to keep anything down for today Constitutional: Constitutional: Denies chills, Denies fatigue, Denies fever(s), Denies malaise, Reports poor appetite and Denies weakness Eyes: Eyes: Denies change in vision ENT: Denies dysphagia, Denies nasal congestion, Denies nasal discharge, Denies nasal obstruction and Denies odynophagia Cardiovascular: Cardiovascular: Denies lightheadedness, Denies radiating jaw, neck or arm pain, Denies palpitations, Denies dyspnea, Denies dyspnea on exertion and Denies orthopnea Respiratory: Respiratory: Denies change in phlegm color, Denies excessive phlegm production, Denies dyspnea and Denies wheezing Gastrointestinal: Gastrointestinal: Reports abdominal pain, Denies dyspepsia, Denies heartburn, Denies diarrhea, Reports nausea and Reports vomiting Genitourinary: Genitourinary: Reports no additional male genitourinary complaints Musculoskeletal: Musculoskeletal: Reports no additional musculoskeletal complaints Integumentary/Breasts: Skin/Breast: Reports system reviewed and no additional complaints, except as docu Neurologic: Reports system reviewed and no additional complaints, except as documented Psychiatric: Psychiatric: Reports no additional psychiatric complaints Endocrine: Endocrine: Reports no additional endocrine complaints Hematologic/Lymphatic: Hematologic/Lymphatic: Reports no additional hematologic/lymphatic complaints Allergic/Immunologic: Allergic/Immunologic: Reports no additional allergic/immunologic complaints [facility] Past Medical History Medical History Anxiety Arthritis COPD (chronic obstructive pulmonary disease) Drug abuse and dependence Legionella pneumonia Prostate disorder Thyroid disorder Surgical History Surgical History H/O inguinal hernia repair robotic assisted right inguinal hernia repair Family History Family History Mother No problems noted. Father Emphysema, unspecified Grandparent AA (alcohol abuse) Sibling No problems noted. Social History Social History Smoking packs per day: 2 Smoking cigarettes per day: 40.0 Years smoked: 30 Smoking pack-years: 60.00 Smoking status: Current every day smoker Additional smoking assessment comments: CURRENTLY E-CIGARETTES/VAPING Alcohol intake: former Drinks per week: 0 Alcohol use details: QUIT DRINKING 2012 Substance use: former Substance use type: former substance user Last use: 2006 Spiritual care concerns: No Meds Home Medications and Allergies
--- NOTE | 2021-03-16 09:32 | PC.NURSE ---
PATIENT IN MRCP, WILL GIVE MORNING MEDICATIONS WHEN BACK
[2021-03-16] MEDS: POTASSIUM CHLORIDE 10 MEQ TABLET.ER PO (11:22)
[2021-03-16] MEDS: FAMOTIDINE 20 MG/2 ML VIAL IV PUSH ×2 (11:23→20:53)
[2021-03-16] MEDS: methADONE HCL (*CRX) 10 MG TABLET 120 MG PO (11:23)
[2021-03-16] MEDS: methADONE HCL (*CRX) 5 MG TABLET PO (11:23)
[2021-03-16] MEDS: OPTI-GEN TAB 1 TABLET PO (11:24)
[2021-03-16] MEDS: SERTRALINE HCL 50 MG TABLET PO (11:24)
[2021-03-16] MEDS: MORPHINE SULFATE (*CRX) 4 MG/ML INJ IV PUSH ×3 (11:33→21:02)
[2021-03-16 14:50] VITALS: BP 131/79; PULSE 65; RESP 18; TEMP 37.4; O2SAT 96
[2021-03-16] MEDS: PANTOPRAZOLE SODIUM IV 40 MG VIAL IV PUSH (14:52)
--- NOTE | 2021-03-16 15:00 | WPDGICN ---
Assessment and Plan Assessment and plan (1) Upper abdominal pain: Code(s): R10.10 - Upper abdominal pain, unspecified Status: Acute Assessment and Plan: MRCP reviewed and possible small stone in distal CBD liver enzymes normal but he was symptomatic will do ERCP on Thursday better today (2) Choledocholithiasis: Code(s): K80.50 - Calculus of bile duct without cholangitis or cholecystitis without obstruction Status: Acute Assessment and Plan: found in imaging (3) COPD (chronic obstructive pulmonary disease): Qualifiers: COPD type: unspecified COPD Qualified Code(s): J44.9 - Chronic obstructive pulmonary disease, unspecified Code(s): J44.9 - Chronic obstructive pulmonary disease, unspecified Status: Acute (4) Nausea and vomiting in adult: Code(s): R11.2 - Nausea with vomiting, unspecified Status: Acute Assessment and Plan: improved ok to have liquid diet for now (5) Lesion of bladder: Code(s): N32.9 - Bladder disorder, unspecified Status: Acute Assessment and Plan: will need evaluation by urology GI Consult Note Consult date/time: 03/16/21 15:00 Reason for consult: abdominal pain, dilated bile duct HPI: Saravanan Lanza is a 65 year old male with past medical history significant for opiate dependence, smoker,benign prostatic hyperplasia, COPD/emphysema, Rt inguinal hernia repair earlier this year who came to the emergency room with new onset of abdominal pain localized to the epigastric area, moderate intensity with 2 days of nausea and vomiting not been able to keep anything down. CT a/p scan reviewed, showed intra and extra hepatic biliary ductal dilation with suggestion of possible stones in the distal common bile duct, large sliding-type hiatal hernia, emphysema, 1.8 cm enhancing intraluminal nodule at the base of the bladder. Then I ordered MRCP that showed intrahepatic and extrahepatic biliary dilatation with possible 2 mm stone of the distal common bile duct. Liver enzymes are normal and feeling better. Review of Systems Constitutional: Constitutional: Denies chills Eyes: Eyes: Denies blurry vision ENT: Reports Normal hearing present Cardiovascular: Cardiovascular: Denies chest pain Respiratory: Respiratory: Denies dyspnea Gastrointestinal: Gastrointestinal: Reports abdominal pain, Reports nausea and Reports vomiting Genitourinary: Genitourinary: Denies flank pain Musculoskeletal: Musculoskeletal: Denies neck pain Integumentary/Breasts: Skin/Breast: Denies dry skin Neurologic: Denies headache(s) Psychiatric: Psychiatric: Reports no additional psychiatric complaints [facility] [place] Past Medical History Medical History (Updated 03/16/21 @ 15:07 by Jitendra Carey MD) Anxiety Arthritis Choledocholithiasis COPD (chronic obstructive pulmonary disease) Drug abuse and dependence Legionella pneumonia Lesion of bladder Nausea and vomiting in adult Prostate disorder Thyroid disorder Upper abdominal pain Surgical History Surgical History H/O inguinal hernia repair robotic assisted right inguinal hernia repair Family History Family History Mother No problems noted. Father Emphysema, unspecified Grandparent AA (alcohol abuse) Sibling No problems noted. Social History Social History Smoking packs per day: 2 Smoking cigarettes per day: 40.0 Years smoked: 30 Smoking pack-years: 60.00 Smoking status: Current every day smoker Additional smoking assessment comments: CURRENTLY E-CIGARETTES/VAPING Alcohol intake: former Drinks per week: 0 Alcohol use details: QUIT DRINKING 2012 Substance use: former Substance use type: former substance user Last
[2021-03-16 19:34] LABS: Glucose Point of Care 72 mg/dl (65-105)
[2021-03-16 22:00] VITALS: BP 133/84; PULSE 82; RESP 18; TEMP 37.4; O2SAT 97
[2021-03-17] MEDS: LACTATED RINGERS 1,000 ML 125 ML IV CONT ×3 (00:09→18:15)
[2021-03-17 06:00] VITALS: BP 149/78; PULSE 62; RESP 18; TEMP 36.4; O2SAT 96
[2021-03-17] MEDS: LEVOTHYROXINE SODIUM 75 MCG TABLET PO (06:16)
--- NOTE | 2021-03-17 08:39 | WPDGIPROGNO ---
Progress Note: A&P Assessment and Plan (1) Choledocholithiasis: Code(s): K80.50 - Calculus of bile duct without cholangitis or cholecystitis without obstruction Status: Acute Assessment and Plan: still with pain but normal liver enzymes ercp tomorrow to assess (2) Common bile duct dilatation: Code(s): K83.8 - Other specified diseases of biliary tract Status: Acute Assessment and Plan: MRCP reviewed and explained to patient that will proceed with ercp tomorrow (3) Nausea and vomiting in adult: Code(s): R11.2 - Nausea with vomiting, unspecified Status: Acute Assessment and Plan: improved (4) Upper abdominal pain: Code(s): R10.10 - Upper abdominal pain, unspecified Status: Acute (5) COPD (chronic obstructive pulmonary disease): Qualifiers: COPD type: unspecified COPD Qualified Code(s): J44.9 - Chronic obstructive pulmonary disease, unspecified Code(s): J44.9 - Chronic obstructive pulmonary disease, unspecified Status: Acute (6) Umbilical hernia: Code(s): K42.9 - Umbilical hernia without obstruction or gangrene Status: Acute Assessment and Plan: he was seeing by surgery few months ago, follow-up as outpatient Subjective Date/time seen: 03/17/21 08:39 Interval history: still with upper abdominal discomfort, no vomiting Review of Systems Review of Systems: All systems reviewed & are unremarkable except as noted in HPI and below Exam Const: General: comfortable and no acute distress HENMT: General nose exam: Normal nares present Eyes: General: appearance normal, both eyes and all related structures Neck: Neck: no JVD Resp: Auscultation: clear to auscultation bilaterally Cardio: Rate: regular rate Rhythm: regular rhythm GI: Inspection: non-distended GI Palp: Yes Soft to palpation and Yes Tenderness to palpation present (GI) (mild ttp in upper abdomen, no rebound) Other: + umbilical hernia, reducible Skin: General skin exam: normal color Neuro: Speech: normal speech Motor exam (neuro): Normal motor muscle tone present throughout Extrem: General: normal to inspection Psych: Mental Status: mental status grossly normal Objective Data Vital Signs Vital Signs: Vital Signs - 24 hr 03/16/21 14:50 03/16/21 22:00 03/17/21 06:00 Temperature 99.3 F 99.3 F 97.6 F Pulse Rate 65 82 62 Respiratory Rate 18 18 18 Blood Pressure 131/79 133/84 149/78 H Pulse Oximetry 96 97 96 Intake/Output Intake/Output: Intake & Output 03/14/21 03/15/21 03/16/21 03/17/21 23:59 23:59 23:59 23:59 Intake Total 1000 3270 500 Output Total 750 800 Balance 1000 2520 -300 Meds/Results Medications: Active Medications Generic Name Dose Route Start Last Admin Trade Name Freq PRN Reason Stop Dose Admin Albuterol 2 puff 03/16/21 08:14 Albuterol Sulfate (*Sp) Aerosol 1 Puff INHALATION Q4H PRN bronchospasm Budesonide/Formoterol Fumarate 2 puff 03/16/21 08:00 03/17/21 07:57 Budesonide/Form 160-4.5 Mcg (*Sp) INHALATION 2 puff Q12HRT BEBE Administration Clonazepam 0.5 mg 03/16/21 01:13 03/16/21 21:02 Clonazepam (*Crx) 0.5 Mg Tablet PO 0.5 mg TID PRN Administration anxiety Famotidine 20 mg 03/15/21 21:00 03/16/21 20:53 Famotidine 20 Mg/2 Ml Vial IV PUSH 20 mg Q12HR BEBE Administration Lactated Ringer's 1,000 mls @ 125 mls/hr 03/15/21 17:55 03/17/21 00:09 Lr - Lactated Ringers Iv IV CONT 125 mls/hr .Q8H BEBE Administration Levothyroxine Sodium 75 mcg 03/16/21 06:30 03/17/21 06:16 Levothyroxine Sodium 75 Mcg Tablet PO 75 mcg DAILY@0630 BEBE Administration Methadone HCl 120 mg 03/16/21 09:00 03/16/21 11:23 Methadone Hcl (*Crx) 10 Mg Tablet PO 120 mg DAILY BEBE Administration Methadone HCl 5 mg 03/16/21 09:00 03/16/21 11:23 Methadone Hcl (*Crx) 5 Mg Tablet PO 5 mg DAILY BBEE Administration Mirtazapine 15 mg 1
[2021-03-17] MEDS: OPTI-GEN TAB 1 TABLET PO (08:45)
[2021-03-17] MEDS: POTASSIUM CHLORIDE 10 MEQ TABLET.ER PO (08:45)
[2021-03-17] MEDS: PANTOPRAZOLE SODIUM IV 40 MG VIAL IV PUSH (08:45)
[2021-03-17] MEDS: TAMSULOSIN HCL 0.4 MG CAPSULE PO ×2 (08:45→16:42)
[2021-03-17] MEDS: SERTRALINE HCL 50 MG TABLET PO (08:45)
[2021-03-17] MEDS: FAMOTIDINE 20 MG/2 ML VIAL IV PUSH ×2 (08:45→21:31)
[2021-03-17] MEDS: MORPHINE SULFATE (*CRX) 4 MG/ML INJ IV PUSH ×3 (08:46→21:30)
[2021-03-17] MEDS: clonazePAM (*CRX) 0.5 MG TABLET PO ×3 (08:46→21:31)
--- NOTE | 2021-03-17 09:03 | PC.NURSE ---
unable to give methadone on time, pyxis does not have enough at this time. pharmacy notified and will refill
[2021-03-17] MEDS: methADONE HCL (*CRX) 5 MG TABLET PO (09:55)
[2021-03-17] MEDS: methADONE HCL (*CRX) 10 MG TABLET 120 MG PO (09:55)
--- NOTE | 2021-03-17 11:26 | PM.IMPN ---
Progress Note: A&P Assessment and Plan (1) Abdominal pain: Code(s): R10.9 - Unspecified abdominal pain Status: Acute Assessment and Plan: ERCP in a.m. CT abdomen and pelvis significant for intra and extra hepatic biliary ductal dilation with suggestion of possible stones in the distal common bile duct. Status post MRCP Supportive care Clear liquid diet Follow GI recommendations (2) Umbilical hernia without obstruction and without gangrene: Code(s): K42.9 - Umbilical hernia without obstruction or gangrene Status: Acute Assessment and Plan: Continue to monitor (3) COPD (chronic obstructive pulmonary disease): Qualifiers: COPD type: unspecified COPD Qualified Code(s): J44.9 - Chronic obstructive pulmonary disease, unspecified Code(s): J44.9 - Chronic obstructive pulmonary disease, unspecified Status: Acute Assessment and Plan: Continue home meds Not actively wheezing (4) Drug abuse and dependence: Code(s): F19.20 - Other psychoactive substance dependence, uncomplicated Status: Acute Assessment and Plan: Continue methadone (5) Anxiety disorder, unspecified: Code(s): F41.9 - Anxiety disorder, unspecified Status: Acute Assessment and Plan: Clonazepam p.r.n. (6) Other psychoactive substance dependence, uncomplicated: Code(s): F19.20 - Other psychoactive substance dependence, uncomplicated Status: Acute Assessment and Plan: Continue Remeron continue sertraline (7) E-cigarette or vaping product use associated lung injury (EVALI): Code(s): U07.0 - Vaping-related disorder Status: Acute Assessment and Plan: Counseling regarding cessation (8) Rheumatoid arthritis: Code(s): M06.9 - Rheumatoid arthritis, unspecified Status: Acute Assessment and Plan: On no DMARD Subjective Date/time seen: 03/17/21 11:26 I am having pain Interval history: still with upper abdominal discomfort, no vomiting Review of Systems Review of Systems: Patient with abdominal pain today Constitutional: Constitutional: Denies chills, Denies fatigue, Denies fever(s), Denies malaise, Reports poor appetite and Denies weakness Eyes: Eyes: Denies change in vision ENT: Denies dysphagia, Denies nasal congestion, Denies nasal discharge, Denies nasal obstruction and Denies odynophagia Cardiovascular: Cardiovascular: Denies lightheadedness, Denies radiating jaw, neck or arm pain, Denies palpitations, Denies dyspnea, Denies dyspnea on exertion and Denies orthopnea Respiratory: Respiratory: Denies change in phlegm color, Denies excessive phlegm production, Denies dyspnea, Denies dyspnea on exertion and Denies wheezing Gastrointestinal: Gastrointestinal: Reports abdominal pain, Denies dysphagia, Denies dyspepsia, Denies heartburn, Denies diarrhea, Reports nausea, Denies odynophagia and Reports vomiting Genitourinary: Genitourinary: Reports no additional male genitourinary complaints Musculoskeletal: Musculoskeletal: Reports no additional musculoskeletal complaints Integumentary/Breasts: Skin/Breast: Reports system reviewed and no additional complaints, except as docu Neurologic: Reports system reviewed and no additional complaints, except as documented and Denies weakness Psychiatric: Psychiatric: Reports no additional psychiatric complaints Endocrine: Endocrine: Reports no additional endocrine complaints, Denies fatigue and Denies palpitations Hematologic/Lymphatic: Hematologic/Lymphatic: Reports no additional hematologic/lymphatic complaints Allergic/Immunologic: Allergic/Immunologic: Reports no additional allergic/immunologic complaints and Denies wheezing Exam Narrative: Patient is sitting by the edge of the bed Const: General: comfortable, no acute distress, well developed, alert, awake and ill appearing chronically Nutritional Appearance: thin Orientation/consciousness: patient
[2021-03-17 12:00] VITALS: BP 135/87; PULSE 96; RESP 20; TEMP 36.4; O2SAT 97
[2021-03-17 14:00] VITALS: BP 135/87; PULSE 96; RESP 20; TEMP 36.4; O2SAT 97
[2021-03-17 16:00] VITALS: BP 146/87; PULSE 95; RESP 20; TEMP 36.8; O2SAT 93
[2021-03-17] MEDS: ALBUTEROL SULFATE (*SP) AEROSOL 1 PUFF 2 PUFF INHALATION (17:33)
[2021-03-17 17:34] VITALS: PULSE 78; O2SAT 94
[2021-03-17] MEDS: MIRTAZAPINE 15 MG TABLET PO (21:31)
[2021-03-17 22:00] VITALS: BP 133/64; PULSE 69; RESP 18; TEMP 37.1; O2SAT 96
[2021-03-18] VITALS (16 sets, daily range): BP systolic 141–158; BP diastolic 79–96; PULSE 64–83; RESP 18–22; TEMP 36.8–37.9; O2SAT 93–100
[2021-03-18] MEDS: LACTATED RINGERS 1,000 ML 125 ML IV CONT (02:30)
--- NOTE | 2021-03-18 08:36 | PC.NURSE ---
Report called to Elisabeth HULL in GI Lab.
[2021-03-18] MEDS: methADONE HCL (*CRX) 5 MG TABLET PO (08:40)
[2021-03-18] MEDS: methADONE HCL (*CRX) 10 MG TABLET 120 MG PO (08:40)
[2021-03-18] MEDS: FAMOTIDINE 20 MG/2 ML VIAL IV PUSH ×2 (08:42→20:49)
[2021-03-18] MEDS: POTASSIUM CHLORIDE 10 MEQ TABLET.ER PO (08:42)
[2021-03-18] MEDS: SERTRALINE HCL 50 MG TABLET PO (08:42)
[2021-03-18] MEDS: PANTOPRAZOLE SODIUM IV 40 MG VIAL IV PUSH (08:42)
[2021-03-18] MEDS: TAMSULOSIN HCL 0.4 MG CAPSULE PO ×2 (08:43→16:39)
[2021-03-18] MEDS: MORPHINE SULFATE (*CRX) 4 MG/ML INJ IV PUSH ×2 (08:56→14:28)
--- NOTE | 2021-03-18 10:35 | PC.NURSE ---
To GI Lab via wheelchair.
[2021-03-18] MEDS: LACTATED RINGERS 1,000 ML 150 ML IV CONT (11:01)
--- NOTE | 2021-03-18 11:26 | WPDANESEPPF ---
Anes - Initial Pre Proc Eval Procedure: Operation Date: 03/18/21 11:45 Proposed Procedures p Endoscopic Retro Cholangiopancreatogram - Jitendra Carey MD Date/Time: 03/18/21 11:26 Surgeon: Zayda Mullen MD Pre Op Diagnosis: Abd Pain Patient Data Age: 65 Gender: M Height: 1.75 m Weight: 58.3 kg Last Vital Signs Temp 99.7 F H 03/18/21 10:58 Pulse 64 03/18/21 10:58 Resp 20 03/18/21 10:58 BP 152/96 H 03/18/21 10:58 Pulse Ox 93 03/18/21 10:58 Allergies Allergy/AdvReac Type Severity Reaction Status Date / Time No Known Allergies Allergy Verified 03/18/21 10:56 Home Medications Medication Instructions Recorded Confirmed Type methadone 10 mg tablet 125 mg PO DAILY 01/24/20 03/15/21 History fluticasone furoate 100 1 inh INHALATION DAILY #30 ea 04/06/20 03/15/21 Rx mcg-vilanterol 25 mcg/dose inhalation powder Complete Men 50 Plus 1 tablet PO DAILY 08/06/20 03/15/21 History potassium chloride 10 mEq 10 meq PO DAILY #30 tablet 10/24/20 03/15/21 Rx tablet,extended release clonazepam 0.5 mg tablet 0.5 mg PO TID PRN #90 tablet 12/17/20 03/15/21 Rx levothyroxine 75 mcg tablet 75 mcg PO DAILY #30 tablet 12/25/20 03/15/21 Rx omeprazole 20 mg capsule,delayed 20 mg PO DAILY #30 cap 01/21/21 03/15/21 Rx release tamsulosin 0.4 mg capsule See Rx Instructions .ROUTE 01/21/21 03/15/21 Rx .COMPLEX #60 cap mirtazapine 15 mg tablet 15 mg PO HS #90 tablet 02/18/21 03/15/21 Rx albuterol sulfate 90 mcg/actuation 2 puff INHALATION Q4H PRN #18 gm 03/11/21 03/15/21 Rx aerosol inhaler fluticasone furoate-vilanterol 2 inh INHALATION BID 03/15/21 03/15/21 History [Breo Ellipta] oxycodone-acetaminophen 1 tablet PO Q6H PRN 03/15/21 03/15/21 History sertraline 100 mg tablet See Rx Instructions .ROUTE 03/18/21 Rx .COMPLEX #90 tablet Patient hx anesthesia problems: none Family hx anesthesia problems: none Results Review: All pre-operative results and documents have been reviewed as part of the pre-operative evaluation. [facility] Past Medical History Medical History (Updated 03/17/21 @ 08:40 by Jitendra Carey MD) Anxiety Arthritis Choledocholithiasis Common bile duct dilatation COPD (chronic obstructive pulmonary disease) Drug abuse and dependence Legionella pneumonia Lesion of bladder Nausea and vomiting in adult Prostate disorder Thyroid disorder Umbilical hernia Upper abdominal pain Surgical History Surgical History H/O inguinal hernia repair robotic assisted right inguinal hernia repair Family History Family History Mother No problems noted. Father Emphysema, unspecified Grandparent AA (alcohol abuse) Sibling No problems noted. Social History Social History Smoking packs per day: 2 Smoking cigarettes per day: 40.0 Years smoked: 30 Smoking pack-years: 60.00 Smoking status: Current every day smoker Additional smoking assessment comments: CURRENTLY E-CIGARETTES/VAPING Alcohol intake: former Drinks per week: 0 Alcohol use details: QUIT DRINKING 2012 Substance use: former Substance use type: former substance user Last use: 2006 Spiritual care concerns: No Anes - Eval Final PreProcedure Day of Procedure 03/18/21 11:26 Patient weight: normal Heart: regular rate and rhythm Lungs: clear to auscultation Airway: Mallampati scale class II Neurological: alert and oriented Last oral intake: >/= 8 hours ASA classification: III Emergent: no Anesthetic plan: proceed Anesthesia type and monitoring: general GIVS and standard monitoring Results Review: All pre-operative results and documents have been reviewed as part of the pre-operative evaluation. Informed Consent: The patient's anesthetic plan
--- NOTE | 2021-03-18 11:59 | PM.IMHP ---
H&P: HPI History of Present Illness Date/Time: 03/18/21 11:59 Review of Systems Constitutional: Constitutional: Denies chills, Denies fatigue, Denies fever(s), Denies malaise, Reports poor appetite and Denies weakness Eyes: Eyes: Denies change in vision ENT: Denies dysphagia, Denies nasal congestion, Denies nasal discharge, Denies nasal obstruction and Denies odynophagia Cardiovascular: Cardiovascular: Denies lightheadedness, Denies radiating jaw, neck or arm pain, Denies palpitations, Denies dyspnea, Denies dyspnea on exertion and Denies orthopnea Respiratory: Respiratory: Denies change in phlegm color, Denies excessive phlegm production, Denies dyspnea, Denies dyspnea on exertion and Denies wheezing Gastrointestinal: Gastrointestinal: Reports abdominal pain, Denies dysphagia, Denies dyspepsia, Denies heartburn, Denies diarrhea, Reports nausea, Denies odynophagia and Reports vomiting Genitourinary: Genitourinary: Reports no additional male genitourinary complaints Musculoskeletal: Musculoskeletal: Reports no additional musculoskeletal complaints Integumentary/Breasts: Skin/Breast: Reports system reviewed and no additional complaints, except as docu Neurologic: Reports system reviewed and no additional complaints, except as documented and Denies weakness Psychiatric: Psychiatric: Reports no additional psychiatric complaints Endocrine: Endocrine: Reports no additional endocrine complaints, Denies fatigue and Denies palpitations Hematologic/Lymphatic: Hematologic/Lymphatic: Reports no additional hematologic/lymphatic complaints Allergic/Immunologic: Allergic/Immunologic: Reports no additional allergic/immunologic complaints and Denies wheezing [facility] Past Medical History Medical History (Updated 03/17/21 @ 08:40 by Jitendra Carey MD) Anxiety Arthritis Choledocholithiasis Common bile duct dilatation COPD (chronic obstructive pulmonary disease) Drug abuse and dependence Legionella pneumonia Lesion of bladder Nausea and vomiting in adult Prostate disorder Thyroid disorder Umbilical hernia Upper abdominal pain Surgical History Surgical History H/O inguinal hernia repair robotic assisted right inguinal hernia repair Family History Family History Mother No problems noted. Father Emphysema, unspecified Grandparent AA (alcohol abuse) Sibling No problems noted. Social History Social History Smoking packs per day: 2 Smoking cigarettes per day: 40.0 Years smoked: 30 Smoking pack-years: 60.00 Smoking status: Current every day smoker Additional smoking assessment comments: CURRENTLY E-CIGARETTES/VAPING Alcohol intake: former Drinks per week: 0 Alcohol use details: QUIT DRINKING 2012 Substance use: former Substance use type: former substance user Last use: 2006 Spiritual care concerns: No Meds Home Medications and Allergies Home Medications Medication Instructions Recorded Confirmed Type methadone 10 mg tablet 125 mg PO DAILY 01/24/20 03/15/21 History fluticasone furoate 100 1 inh INHALATION DAILY #30 ea 04/06/20 03/15/21 Rx mcg-vilanterol 25 mcg/dose inhalation powder Complete Men 50 Plus 1 tablet PO DAILY 08/06/20 03/15/21 History potassium chloride 10 mEq 10 meq PO DAILY #30 tablet 10/24/20 03/15/21 Rx tablet,extended release clonazepam 0.5 mg tablet 0.5 mg PO TID PRN #90 tablet 12/17/20 03/15/21 Rx levothyroxine 75 mcg tablet 75 mcg PO DAILY #30 tablet 12/25/20 03/15/21 Rx omeprazole 20 mg capsule,delayed 20 mg PO DAILY #30 cap 01/21/21 03/15/21 Rx release tamsulosin 0.4 mg capsule See Rx Instructions .ROUTE 01/21/21 03/15/21 Rx .COMPLEX #60 cap mirtazapine 15 mg tablet 15 mg PO HS #90 tablet 02/18/21 03/15/21 Rx albut
--- NOTE | 2021-03-18 13:45 | PC.NURSE ---
Returned from GI Lab via stretcher. Voiding without difficulty.
[2021-03-18] MEDS: clonazePAM (*CRX) 0.5 MG TABLET PO (14:28)
--- NOTE | 2021-03-18 16:36 | PM.IMPN ---
Progress Note: A&P Assessment and Plan (1) Abdominal pain: Code(s): R10.9 - Unspecified abdominal pain Status: Acute Assessment and Plan: Status post ERCP with a sphincterotomy CT abdomen and pelvis significant for intra and extra hepatic biliary ductal dilation with suggestion of possible stones in the distal common bile duct. Status post MRCP Supportive care Advanced diet as tolerated Follow GI recommendations (2) Umbilical hernia without obstruction and without gangrene: Code(s): K42.9 - Umbilical hernia without obstruction or gangrene Status: Acute Assessment and Plan: Continue to monitor (3) COPD (chronic obstructive pulmonary disease): Qualifiers: COPD type: unspecified COPD Qualified Code(s): J44.9 - Chronic obstructive pulmonary disease, unspecified Code(s): J44.9 - Chronic obstructive pulmonary disease, unspecified Status: Acute Assessment and Plan: Continue home meds Not actively wheezing (4) Drug abuse and dependence: Code(s): F19.20 - Other psychoactive substance dependence, uncomplicated Status: Acute Assessment and Plan: Continue methadone (5) Anxiety disorder, unspecified: Code(s): F41.9 - Anxiety disorder, unspecified Status: Acute Assessment and Plan: Clonazepam p.r.n. (6) Other psychoactive substance dependence, uncomplicated: Code(s): F19.20 - Other psychoactive substance dependence, uncomplicated Status: Acute Assessment and Plan: Continue Remeron continue sertraline (7) E-cigarette or vaping product use associated lung injury (EVALI): Code(s): U07.0 - Vaping-related disorder Status: Acute Assessment and Plan: Counseling regarding cessation (8) Rheumatoid arthritis: Code(s): M06.9 - Rheumatoid arthritis, unspecified Status: Acute Assessment and Plan: On no DMARD Tylenol p.r.n. Subjective Date/time seen: 03/18/21 16:36 I am in pain Interval history: still with upper abdominal discomfort, no vomiting, left knee pain. Patient is now status post ERCP. Review of Systems Review of Systems: Abdominal pain, knee pain, back pain. Constitutional: Constitutional: Denies chills, Denies fatigue, Denies fever(s), Denies malaise and Denies weakness Eyes: Eyes: Denies change in vision ENT: Denies dysphagia, Denies nasal congestion, Denies nasal discharge, Denies nasal obstruction and Denies odynophagia Cardiovascular: Cardiovascular: Denies irregular heart rhythm, Denies claudication, Denies lightheadedness, Denies radiating jaw, neck or arm pain, Denies palpitations, Denies dyspnea, Denies dyspnea on exertion and Denies orthopnea Respiratory: Respiratory: Denies cough, Denies dyspnea and Denies wheezing Gastrointestinal: Gastrointestinal: Reports abdominal pain, Denies dyspepsia, Denies heartburn, Denies nausea and Denies vomiting Genitourinary: Genitourinary: Reports no additional male genitourinary complaints Musculoskeletal: Musculoskeletal: Reports arthralgias (Left knee) Integumentary/Breasts: Skin/Breast: Reports system reviewed and no additional complaints, except as docu Neurologic: Reports system reviewed and no additional complaints, except as documented Psychiatric: Psychiatric: Reports no additional psychiatric complaints Endocrine: Endocrine: Reports no additional endocrine complaints Hematologic/Lymphatic: Hematologic/Lymphatic: Reports no additional hematologic/lymphatic complaints Allergic/Immunologic: Allergic/Immunologic: Reports no additional allergic/immunologic complaints Exam Narrative: Patient is sitting by the edge of the bed Const: General: cooperative, comfortable, no acute distress, well developed, alert, awake and ill appearing chronically Nutritional Appearance: average body habitus Orientation/consciousness: patient oriented x3 HENMT: Head: normal to inspection, normocephalic and atrauma
[2021-03-18] MEDS: oxyCODONE/ACETAMINOPHEN (*CRX) 5-325 MG TABLET 1 TABLET PO (17:20)
[2021-03-18] MEDS: oxyCODONE HCL (*CRX) 5 MG TAB IR PO (17:22)
[2021-03-18] MEDS: MIRTAZAPINE 15 MG TABLET PO (20:49)
[2021-03-18] MEDS: ONDANSETRON INJ 4 MG/2 ML VIAL IV PUSH (20:52)
[2021-03-19] VITALS: BP 173/89; PULSE 81; RESP 22; TEMP 36.9; O2SAT 98
[2021-03-19] MEDS: ONDANSETRON INJ 4 MG/2 ML VIAL IV PUSH ×2 (00:28→08:20)
[2021-03-19 04:00] VITALS: BP 161/88; PULSE 86; RESP 18; TEMP 36.1; O2SAT 96
[2021-03-19] MEDS: LEVOTHYROXINE SODIUM 75 MCG TABLET PO (06:24)
--- NOTE | 2021-03-19 07:29 | WPDANESPN ---
Anes - Prog Note Post-Op Date/Time: 03/19/21 07:29 Cardiovascular status: normal Respiratory status: normal Airway patency: baseline Mental status: baseline Post-Op hydration status: normal Vital Signs: Last Vital Signs Temp 36.1 C L 03/19/21 04:00 Pulse 86 03/19/21 04:00 Resp 18 03/19/21 04:00 BP 161/88 H 03/19/21 04:00 Pulse Ox 96 03/19/21 04:00 Pain Score (VAS): 2 I/O: Intake & Output 03/18/21 03/18/21 03/19/21 15:59 23:59 07:59 Intake Total 0 250 190 Output Total 50 Balance 0 200 190 Laboratory Tests 03/16/21 04:39 03/16/21 04:39 Post-procedural complaints: none Patient Feedback: Patient satisfied with anesthetic care.
[2021-03-19 08:23] VITALS: RESP 18; O2SAT 95
[2021-03-19] MEDS: clonazePAM (*CRX) 0.5 MG TABLET PO (09:13)
[2021-03-19] MEDS: methADONE HCL (*CRX) 10 MG TABLET 120 MG PO (09:13)
[2021-03-19] MEDS: methADONE HCL (*CRX) 5 MG TABLET PO (09:13)
[2021-03-19] MEDS: SERTRALINE HCL 50 MG TABLET PO (09:14)
[2021-03-19] MEDS: POTASSIUM CHLORIDE 10 MEQ TABLET.ER PO (09:14)
[2021-03-19] MEDS: OPTI-GEN TAB 1 TABLET PO (09:14)
[2021-03-19] MEDS: TAMSULOSIN HCL 0.4 MG CAPSULE PO (09:14)
[2021-03-19] MEDS: FAMOTIDINE 20 MG/2 ML VIAL IV PUSH (09:15)
[2021-03-19] MEDS: PANTOPRAZOLE SODIUM IV 40 MG VIAL IV PUSH (09:15)
[2021-03-19] MEDS: POTASSIUM CHLORIDE 20 MEQ PACKET (FOR LIQUID) 40 MEQ PO (09:18)
[2021-03-19 10:30] VITALS: BP 148/80; PULSE 91; RESP 28; TEMP 37; O2SAT 97
[2021-03-19 14:00] VITALS: BP 127/87; PULSE 89; RESP 22; TEMP 36.9; O2SAT 95
--- NOTE | 2021-03-19 14:32 | PM.DS ---
DS: Admitting Diagnosis Discharge Date March 19, 2021 Admitting Diagnosis abdominal pain DS: Discharge Diagnosis Discharge Diagnosis (1) Common bile duct dilatation: Code(s): K83.8 - Other specified diseases of biliary tract Status: Acute (2) Ampullary stenosis: Code(s): K83.1 - Obstruction of bile duct Status: Acute DS: Summary Hospital Course Reason for hospitalization: abdominal pain Hospital Course: Patient is a 65-year-old male with past medical history opiate dependence, tobacco dependence, GERD, COPD, BPH presenting with nonradiating epigastric pain associated with some nausea and vomiting. CT obtained, showing intra and extrahepatic biliary ductal dilation with some suggestion of possible stones in the distal common bile duct. MRCP was done Which showed similar findings. Patient underwent EGD, which showed in addition to a sliding hiatal hernia, findings consistent with ampullary stenosis. [place] biopsy was done, results are pending, can be so discussed with PCP and GI as an outpatient. Furthermore a sphincterotomy was done, and since this his pain symptoms have resolved. Diet is slowly coming back, and he was able to tolerate a light lunch. Discharge with close PCP and GI follow-up. Of note, there is a small fat containing umbilical left inguinal hernia, which the patient is aware of. This is not an acute problem, and he was encouraged to follow up with his PCP for this as an outpatient. Discussed red flag symptoms and when he would need to come to the hospital. Also of note found 1.8 cm enhancing intraluminal nodule at the base of the bladder incidentally on CT. Unclear if it is arising from bladder wall or prostate based on imaging. Discussed this with patient, and that he should follow with a urologist sooner rather than later to discuss possibility of cystoscopy or ureteroscopy for further evaluation. Time spent discussing smoking cessation with patient: 3 to 10 minutes Status at Discharge Functional status at discharge: independent ambulation Time Spent with Patient Time attestation: Total time spent providing and/or coordinating discharge services: Time spent: Less than 30 minutes Exam Const: General: no acute distress Neck: Neck: no JVD Resp: Effort & Inspection: normal respiratory effort Auscultation: clear to auscultation bilaterally Cardio: Rate: regular rate Rhythm: regular rhythm GI: GI Palp: Yes Soft to palpation and No Tenderness to palpation present (GI) DS: Data Data Completed and Pending Pending studies at discharge: Pending at discharge 03/18/21 12:36 Surgical [PTH] Routine Discharge Plan Discharge Attending physician on discharge: Eleazar Hall Consulting providers: Krystian Bergeron ; Jitendra Carey Discharging Clinician: Eleazar Hall Anticipated Discharge Date/Time: 03/19/21 14:15 Patient Disposition: Home, Self-Care Activity: no shower, no straining and no driving Diet: as tolerated, regular and heart healthy Patient Instructions: Antibiotic Form, How to Stop Smoking (DC), ERCP (Endoscopic Retrograde Cholangiopancreatography) (DC) Stand Alone Forms: General Discharge Information Follow-up/Referrals: Mor Rodriguez MD [Primary Care Provider] - Call for Appointment Zafar Virgen MD [Physician] - Call for Appointment (Nodule on bladder - consider for cystoscopy. Thanks.) Jitendra Carey MD [Physician] - Call for Appointment Discharge Medications: New sertraline [Zoloft] 50 mg Tablet 100 mg PO QAM 30 Days Qty: 60 RF: 0 Continued oxycodone-acetaminophen 10-325 mg tablet 1 tablet PO Q6H PRN (Reason: Pain) RF: 0 Breo Ellipta 100-25 mcg/dose blister with device 2 inh INHALATION BID RF: 0 methadone 10 mg tablet 125 mg PO DAILY RF: 0 Breo Ellipta 100-25 mcg/dose blister with device 1 inh inhalation DAILY Qty: 30 RF: 12 levothyroxine 75 mcg tablet 75
--- NOTE | 2021-03-19 16:00 | PC.NURSE ---
On 03/19/21, the student, [ Dallas Morales], provided care and completed [facility] documentation on this patient. I have reviewed the student's documentation and agree with the findings.
--- NOTE | 2021-03-19 16:54 | WPDGIPROGNO ---
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 Today some nausea but doing well and going home. Review of Systems Review of Systems: All systems reviewed & are unremarkable except as noted in HPI and below Exam Const: General: comfortable and no acute distress HENMT: General nose exam: Normal nares present Eyes: General: appearance normal, both eyes and all related structures Neck: Neck: no JVD Resp: Auscultation: clear to auscultation bilaterally Cardio: Rate: regular rate Rhythm: regular rhythm GI: Inspection: non-distended GI Palp: Yes Soft to palpation and No Guarding due to palpation present (GI) Auscultation: normal bowel sounds Other: + umbilical hernia, reducible Skin: General skin exam: normal color Neuro: Speech: normal speech Motor exam (neuro): Normal motor muscle tone present throughout Extrem: General: normal to inspection Psych: Mental Status: mental status grossly normal Objective Data Vital Signs Vital Signs: Vital Signs - 24 hr 03/18/21 20:00 03/18/21 20:06 03/19/21 00:00 Temperature 99.5 F 98.5 F Pulse Rate 81 83 81 Respiratory Rate 18 22 H Blood Pressure 158/79 H 173/89 H Pulse Oximetry 96 93 98 03/19/21 04:00 03/19/21 08:23 03/19/21 10:30 Temperature 97 F L 98.6 F Pulse Rate 86 91 Respiratory Rate 18 18 28 H Blood Pressure 161/88 H 148/80 H Pulse Oximetry 96 95 97 03/19/21 14:00 Temperature 98.5 F Pulse Rate 89 Respiratory Rate 22 H Blood Pressure 127/87 Pulse Oximetry 95 Intake/Output Intake/Output: Intake & Output 03/16/21 03/17/21 03/18/21 03/19/21 23:59 23:59 23:59 23:59 Intake Total 3270 3585 1250 710 Output Total 750 1225 750 Balance 2520 2360 500 710 Meds/Results Radiology Results: ITS Impressions Abdomen/Pelvis CT 03/15/21 16:33 IMPRESSION: 1. Intra and extra hepatic biliary ductal dilation with suggestion of possible stones in the distal common bile duct. Correlate with liver function tests and consider MRCP for further evaluation. Although there is no peripancreatic inflammatory stranding there are tiny dystrophic pancreatic parenchymal calcifications suggestive of chronic pancreatitis and would also correlate with amylase and lipase levels. 2. Large sliding-type hiatal hernia. 3. Emphysema. 4. 1.8 cm enhancing intraluminal nodule at the base of the bladder, unclear whether arising from the bladder wall or from the prostate and projecting into the lumen. There is also asymmetric thickening of the distalmost left ureter. Correlate with urinalysis and consider cystoscopy/ureteroscopy for further evaluation. 5. Small fat-containing umbilical left inguinal hernias. MRCP 03/16/21 12:35 IMPRESSION: 1. Intrahepatic and extrahepatic biliary dilatation with possible 2 mm stone of the distal common bile duct. 2. Large sliding hiatal hernia. 3. 1.8 cm soft tissue density projecting into the bladder base, incompletely characterized. Consider direct visualization. Endo Retro [place]
== END 2021-03-19 15:55 | disposition home or self-care (01) | DRG 445 ==
LOC: ANHED 17:53 → ANH2MED 20:02
PROVIDERS: Emergency Medicine Emergency Medical Services; Internal Medicine Gastroenterology; Admitting Provider Internal Medicine; Emergency Provider General Practice; PCP Family Medicine; Visit Provider Internal Medicine
PROC: 0FD98ZX Extraction of Common Bile Duct, Via Natural or Artificial Opening Endoscopic, Diagnostic (ICD-10-PCS; CPT 43260; principal; 2021-03-18 11:45)
DX: K83.1 Obstruction of bile duct (principal); F11.20 Opioid dependence, uncomplicated; K21.9 Gastro-esophageal reflux disease without esophagitis; J44.9 Chronic obstructive pulmonary disease, unspecified; N40.0 Benign prostatic hyperplasia without lower urinary tract symptoms; K44.9 Diaphragmatic hernia without obstruction or gangrene; E03.9 Hypothyroidism, unspecified; K40.90 Unilateral inguinal hernia, without obstruction or gangrene, not specified as recurrent; M19.90 Unspecified osteoarthritis, unspecified site; F41.9 Anxiety disorder, unspecified; F17.290 Nicotine dependence, other tobacco product, uncomplicated
CPT/HCPCS: 36415; 74177; 74183; 74329; 76376; 80053; 81001; 82948; 83605; 83690; 85025; 88108; 94640; 96361; 96374; 96375; 96376; 99285; A9270; A9577; C9113; G0378; J1170; J2270; J2405; J2704; J7030; J7120; Q9967

== ENCOUNTER 2021-06-03 14:37 | Outpatient (CLI) | payer MEDICARE, MEDICAID, SELFPAY ==
[2021-06-03 18:35] LABS: Basophils Absolute Auto 0.1 K/mm3 (0.0-0.1); Basophils Percent Auto 1.3 % (0.2-1.2); Eosinophils Absolute Auto 0.3 K/mm3 (0-0.3); Eosinophils Percent Auto 4.2 % (0-4.4); Hematocrit 41.6 % (42.0-52.0); Hemoglobin 12.9 g/dL (14.0-18.0); Immature Granulocyte Absolute 0.02 K/mm3 (0.00-0.031); Immature Granulocyte Percent A 0.3 % (0-0.5); Lymphocytes Absolute Auto 1.73 K/mm3 (0.9-3.2); Lymphocytes Percent Auto 29.1 % (18.3-44.2); Mean Corpuscular Hemoglobin 29.3 pg (26-34); Mean Corpuscular Volume 94.5 fl (80-100); Mean Platelet Volume 10.2 fl (7.4-10.4); Monocytes Absolute Auto 0.4 K/mm3 (0.1-0.6); Monocytes Percent Auto 7.1 % (2.6-8.5); Neutrophils Absolute Auto 3.5 K/mm3 (1.3-6.7); Platelet Count Result 201 k/mm3 (150-375); Red Cell Distribution Width 13.3 % (11.5-14.5)
[2021-06-03 19:56] LABS: Alanine Aminotransferase 14 U/L (4-50); Albumin Level 4.4 g/dL (3.5-5.1); Alkaline Phosphatase 74 U/L (38-126); Anion Gap 11 mmol/L (8-16); Aspartate Amino Transferase 27 U/L (17-59); Bilirubin,Total 0.4 mg/dL (0.2-1.3); Blood Urea Nitrogen 15 mg/dL (9-20); Calcium 9.3 mg/dL (8.4-10.2); Carbon Dioxide 27 mmol/L (22-30); Chloride 101 mmol/L (98-107); Estimated Glomerular Filt Rate > 60; Glucose 109 mg/dL (65-110); Iron 59 ug/dL (49-181); Potassium 4.6 mmol/L (3.4-5.0); Sodium 139 mmol/L (137-145)
[2021-06-03 20:06] LABS: Percent Iron Saturation 19 % (20-50)
== END 2021-06-03 14:38 | disposition home or self-care (01) ==
PROVIDERS: PCP Family Medicine; Visit Provider Family Medicine
DX: D64.9 Anemia, unspecified (principal); E87.6 Hypokalemia; E07.9 Disorder of thyroid, unspecified
CPT/HCPCS: 36415; 80053; 82607; 83540; 83550; 84443; 85025

== ENCOUNTER 2021-06-24 10:52 | Outpatient (CLI) | payer MEDICARE, MEDICAID, SELFPAY | END 2021-06-24 10:53 | disposition home or self-care (01) | PROVIDERS: PCP Family Medicine; Visit Provider Nurse Practitioner Family | DX: R09.3 Abnormal sputum (principal) | CPT/HCPCS: 87070; 87077; 87186; 87205 ==

== ENCOUNTER 2021-08-28 07:24 | Outpatient (CLI) | payer MEDICARE, MEDICAID, SELFPAY ==
--- NOTE | 2021-09-09 08:59 | WPDSLEEPSTUD ---
Sleep Study Date of Study: 08/28/21 Ordering Provider: Carmelina Ponce MD Interpreting Physician: Carmelina Ponce MD Sleep Study Type: Split Polysomnogram Height: 1.78 m Weight: 67.132 kg Body Mass Index: 21.2 Neck Circumference (inches): 14.5 [place]: 11 Reason for Sleep Study Hypersomnolence Sleep History Saravanan Lanza is a 66 year old man with hypersomnolence. He has COPD, and he uses methadone for management of opioid dependence. He complains of breathing problems which also occur at night. 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 He is detoxing on methadone and this seems to keep him awake. He does not awaken from sleep feeling short of breath. He does not awaken at night with heartburn, belching or coughing. He occasionally snores but is not loud enough that others complain about it. He frequently has trouble sleeping with a cold. He does not wake up gasping for breath at night. He frequently has breathing problems at night observed by others. He does not sweat excessively at night. He rarely notices his heart pounding or beating irregularly at night. He frequently falls asleep during the day, occasionally falls asleep involuntarily but never falls asleep while driving. He does not have loss of muscle tone with strong emotion. He rarely has daytime difficulties due to excessive sleepiness. He does not feel paralyzed on waking or falling asleep, does not have vivid dreamlike scenes upon awakening or falling asleep and does not feel afraid to go to sleep. He denies having nightmares. He does not remember his dreams. He does not have racing thoughts. He occasionally feels sad, depressed and anxious. He rarely has muscular tension. He occasionally notices parts of his body jerking. He rarely kicks at night. He does not have crawling and aching feelings in his legs. He rarely has any kind of leg pain at night. He does not have morning jaw pain. He does not grind his teeth during sleep. He occasionally is bothered by pain during the day, occasionally awakened by pain at night. He occasionally wakes up feeling stiff in the morning with sore achy muscles. He rarely wakes up with pain in the neck and spine. He feels panicky, he has memory problems. He has abuse alcohol in the past, quit alcohol 10 years ago and quit taking drugs 7 years ago. He has gained 15 lb in the last year. Normal bedtime is 10:00 p.m. taking 1-2 hours to fall asleep, typically waking twice at night to use the bathroom. Also while awake he will watch television. He awakens in the morning at 8:30 a.m.. On weekends his schedule is similar, goes to bed 11:00 p.m. and wakes at 8:30 a.m.. He estimates getting 5-6 hours of sleep at night. He wakes at night to take care of his mother. He takes naps in the afternoon or evening. A short nap of 10 or 15 minutes may be refreshing. Habits: He currently smokes E cigarettes. He consumes caffeine daily. No alcohol or recreational drugs currently. [facility] Past Medical History Medical History Anxiety Arthritis Choledocholithiasis Common bile duct dilatation COPD (chronic obstructive pulmonary disease) Drug abuse and dependence Legionella pneumonia Lesion of bladder Nausea and vomiting in adult Prostate disorder Thyroid disorder Umbilical hernia Upper abdominal pain Surgical History Surgical History H/O inguinal hernia repair robotic assisted right inguinal hernia repair Family History Family History Mother No problems noted. Father Emphysema, unspecified Grandparent AA (alcohol abuse) Sibling No problems noted. Social History Social History (Reviewed 08/07/21 @ 11:40 by Carmelina
[2021-09-09 13:48] VITALS: BMI 21.2
== END 2021-08-29 06:25 | disposition home or self-care (01) ==
LOC: ANHCSM 07:25
PROVIDERS: PCP Family Medicine; Visit Provider Internal Medicine Critical Care Medicine
DX: G47.19 Other hypersomnia (principal); G47.31 Primary central sleep apnea
CPT/HCPCS: 95811

== ENCOUNTER 2021-09-09 15:06 | Outpatient (CLI) | payer MEDICARE, MEDICAID, SELFPAY ==
[2021-09-09 18:44] LABS: Basophils Absolute Auto 0.1 K/mm3 (0.0-0.1); Basophils Percent Auto 1.3 % (0.2-1.2); Eosinophils Absolute Auto 0.4 K/mm3 (0-0.3); Eosinophils Percent Auto 6.5 % (0-4.4); Hematocrit 39.7 % (42.0-52.0); Hemoglobin 12.7 g/dL (14.0-18.0); Immature Granulocyte Absolute 0.02 K/mm3 (0.00-0.031); Immature Granulocyte Percent A 0.3 % (0-0.5); Lymphocytes Absolute Auto 1.76 K/mm3 (0.9-3.2); Lymphocytes Percent Auto 28.8 % (18.3-44.2); Mean Corpuscular Hemoglobin 29.3 pg (26-34); Mean Corpuscular Volume 91.7 fl (80-100); Mean Platelet Volume 10.3 fl (7.4-10.4); Monocytes Absolute Auto 0.4 K/mm3 (0.1-0.6); Monocytes Percent Auto 6.4 % (2.6-8.5); Neutrophils Absolute Auto 3.5 K/mm3 (1.3-6.7); Neutrophils Percent Auto 56.7 % (45.5-73.1); Platelet Count Result 196 k/mm3 (150-375); Red Blood Count 4.33 M/mm3 (4.6-6.20); White Blood Count 6.1 K/mm3 (4.5-10.0)
== END 2021-09-09 15:07 | disposition home or self-care (01) ==
PROVIDERS: PCP Family Medicine; Visit Provider Family Medicine
DX: E07.9 Disorder of thyroid, unspecified (principal); D64.9 Anemia, unspecified; F41.9 Anxiety disorder, unspecified; J44.9 Chronic obstructive pulmonary disease, unspecified
CPT/HCPCS: 36415; 84443; 85025

== ENCOUNTER 2021-10-02 09:57 | Outpatient (CLI) | payer MEDICARE, MEDICAID, SELFPAY ==
--- NOTE | 2021-10-02 10:06 | ECHO_ITS ---
Patient Info Name: Saravanan Lanza Age: 66 years : 1955 Gender: Male Ht: 70 in Wt: 140 lbs BSA: 1.76 m2 HR: 68 bpm BP: 126 / 75 mmHg Technical Quality: Fair Exam Date: 10/02/2021 10:37 AM Exam Location: [facility] Patient Status: Outpatient Admit Date: 10/02/2021 Staff Ordering Physician: Carmelina Ponce MD Taximeter Repairer: Will Flores RDCS, RT Attending Provider: Carmelina Ponce MD Referring Physician: Kris CHAVES; Exam Type: CA echo doppler color flow Study Info Indications I50.9 - Heart failure, unspecified Complete two-dimensional, color flow and Doppler transthoracic echocardiogram is performed. Summary 1. Complete two-dimensional, color flow and Doppler transthoracic echocardiogram is performed. 2. Left ventricular chamber dimension is normal. 3. Left ventricular systolic function is normal, estimated at 55-60%. 4. The left ventricular diastolic function is grade I diastolic dysfunction. 5. E/e' 7 is not elevated. 6. There is trace aortic valve regurgitation. 7. Dilated inferior vena cava with >50% collapse upon inspiration consistent with elevated right atrial pressure, 10 mmHg. Left Ventricle E/e' 7 is not elevated. Left ventricular chamber dimension is normal. Left ventricular systolic function is normal, estimated at 55-60%. The left ventricular diastolic function is grade I diastolic dysfunction. Right Ventricle Right ventricular systolic function is normal and with normal TAPSE 2.9 cm. Right ventricular chamber dimension is normal. Left Atria Left atrial chamber dimension is normal. Right Atria Right atrial chamber dimension is normal. Aortic Valve The aortic valve is trileaflet. There is no aortic valve stenosis. There is trace aortic valve regurgitation. Pulmonic Valve There is no pulmonic regurgitation. Mitral Valve There is no mitral valve stenosis. There is no mitral valve regurgitation. Tricuspid Valve There is no tricuspid valve regurgitation. Pericardium/Pleural There is no pericardial effusion. Inferior Vena Cava Dilated inferior vena cava with >50% collapse upon inspiration consistent with elevated right atrial pressure, 10 mmHg. Aorta The aortic root size at the sinus of Valsalva is normal. Left Ventricular Outflow Tract Name Value Normal LVOT 2D LVOT Diameter 2.0 cm LVOT Doppler LVOT Peak Gradient 4 mmHg LVOT Mean Gradient 2 mmHg LVOT VTI 20 cm LVOT Stroke Volume 62 ml LVOT CO 3.5 l/min LVOT CI 2.0 l/min/m2 Mitral Valve Name Value Normal MV Doppler MV Decel [place] 251 cm/s2 MV PHT 68 ms MV Area (PHT)
== END 2021-10-02 09:58 | disposition home or self-care (01) ==
PROVIDERS: PCP Family Medicine; Visit Provider Internal Medicine Critical Care Medicine
DX: G47.31 Primary central sleep apnea (principal)
CPT/HCPCS: 93306

== ENCOUNTER 2021-10-09 08:59 | Outpatient (CLI) | payer MEDICARE, MEDICAID, SELFPAY ==
--- NOTE | 2021-10-14 12:07 | WPDSLEEPSTUD ---
Sleep Study Date of Study: 10/09/21 Ordering Provider: Carmelina Ponce MD Interpreting Physician: Carmelina Ponce MD Sleep Study Type: ASV Height: 1.78 m Weight: 63.503 kg Body Mass Index: 20.0 Neck Circumference (inches): 15 Horace: 6 Reason for Sleep Study * 08/28/2021 Split- severe central sleep apnea AHI 83.9, central apnea index 67.3, obstructive apnea index 12.4, desaturation 86% with snoring; no REM during the baseline. During the titration, he had central apneas at all levels. He had REM occurred at a pressure of 10 cm with 3 of EPR. This patient needs to return to the sleep lab for a BiPAP titration with a backup rate. * Echo 10/02/21 shows EF 55-60% Sleep History Saravanan Lanza is a 66 year old man with hypersomnolence. He has COPD, and he uses methadone for management of opioid dependence. He complains of breathing problems which also occur at night. He has difficulty falling asleep, he wakes up throughout the night including the clinical research director hours and he is sleepy during the day. He is detoxing on methadone and this seems to keep him awake. He does not awaken from sleep feeling short of breath. He does not awaken at night with heartburn, belching or coughing. He occasionally snores but is not loud enough that others complain about it. He frequently has trouble sleeping with a cold. He does not wake up gasping for breath at night. He frequently has breathing problems at night observed by others. He does not sweat excessively at night. He rarely notices his heart pounding or beating irregularly at night. He frequently falls asleep during the day, occasionally falls asleep involuntarily but never falls asleep while driving. He does not have loss of muscle tone with strong emotion. He rarely has daytime difficulties due to excessive sleepiness. He does not feel paralyzed on waking or falling asleep, does not have vivid dreamlike scenes upon awakening or falling asleep and does not feel afraid to go to sleep. He denies having nightmares. He does not remember his dreams. He does not have racing thoughts. He occasionally feels sad, depressed and anxious. He rarely has muscular tension. He occasionally notices parts of his body jerking. He rarely kicks at night. He does not have crawling and aching feelings in his legs. He rarely has any kind of leg pain at night. He does not have morning jaw pain. He does not grind his teeth during sleep. He occasionally is bothered by pain during the day, occasionally awakened by pain at night. He occasionally wakes up feeling stiff in the morning with sore achy muscles. He rarely wakes up with pain in the neck and spine. He feels panicky, he has memory problems. He has abuse alcohol in the past, quit alcohol 10 years ago and quit taking drugs 7 years ago. He has gained 15 lb in the last year. Normal bedtime is 10:00 p.m. taking 1-2 hours to fall asleep, typically waking twice at night to use the bathroom. Also while awake he will watch television. He awakens in the morning at 8:30 a.m.. On weekends his schedule is similar, goes to bed 11:00 p.m. and wakes at 8:30 a.m.. He estimates getting 5-6 hours of sleep at night. He wakes at night to take care of his mother. He takes naps in the afternoon or evening. A short nap of 10 or 15 minutes may be refreshing. Habits: He currently smokes E cigarettes. He consumes caffeine daily. No alcohol or recreational drugs currently. [facility] Past Medical History Medical History (Updated 10/14/21 @ 13:22 by Carmelina Ponce MD) Anxiety Arthritis Central sleep apnea Choledocholithiasis Common bile duct dilatation COPD (chronic obstructive pulmonary disease) Drug abuse and dependence Legionella pneumonia Lesion of bladder Nausea and vomiting in adult Prostate disorder Thyroid disorder Umbilical hernia Upper abdominal pain Surgical History Surgical History H/O inguinal he
--- NOTE | 2022-04-23 11:19 | SLEEP ---
pt stated he did not picking tech machine because he knew he would never use it. advised pt to make appt with dr francisco.
== END 2021-10-10 06:33 | disposition home or self-care (01) ==
LOC: ANHCSM 08:59
PROVIDERS: PCP Family Medicine; Visit Provider Internal Medicine Critical Care Medicine
DX: G47.31 Primary central sleep apnea (principal)
CPT/HCPCS: 95811

== ENCOUNTER 2021-11-21 15:38 | Outpatient (CLI) | payer MEDICARE, MEDICAID, SELFPAY ==
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
== END 2021-11-21 15:39 | disposition home or self-care (01) ==
PROVIDERS: PCP Family Medicine; Visit Provider Family Medicine
DX: R07.81 Pleurodynia (principal); M25.531 Pain in right wrist; K44.9 Diaphragmatic hernia without obstruction or gangrene; M41.9 Scoliosis, unspecified; M85.88 Other specified disorders of bone density and structure, other site
CPT/HCPCS: 71101

== ENCOUNTER 2022-03-11 14:46 | Outpatient (CLI) | payer MEDICARE, MEDICAID, SELFPAY ==
[2022-03-11 19:52] LABS: Basophils Absolute Auto 0.1 K/mm3 (0.0-0.1); Basophils Percent Auto 1.3 % (0.2-1.2); Eosinophils Absolute Auto 0.4 K/mm3 (0-0.3); Eosinophils Percent Auto 5.7 % (0-4.4); Hematocrit 42.5 % (42.0-52.0); Hemoglobin 13.4 g/dL (14.0-18.0); Immature Granulocyte Absolute 0.04 K/mm3 (0.00-0.031); Immature Granulocyte Percent A 0.6 % (0-0.5); Lymphocytes Absolute Auto 2.04 K/mm3 (0.9-3.2); Lymphocytes Percent Auto 30.5 % (18.3-44.2); Mean Corpuscular HGB Conc 31.5 g/dl (32-36); Mean Corpuscular Hemoglobin 30.6 pg (26-34); Mean Platelet Volume 9.9 fl (7.4-10.4); Monocytes Absolute Auto 0.5 K/mm3 (0.1-0.6); Monocytes Percent Auto 7.5 % (2.6-8.5); Neutrophils Absolute Auto 3.6 K/mm3 (1.3-6.7); Neutrophils Percent Auto 54.4 % (45.5-73.1); Platelet Count Result 215 k/mm3 (150-375); Red Blood Count 4.38 M/mm3 (4.6-6.20); Red Cell Distribution Width 13.5 % (11.5-14.5); White Blood Count 6.7 K/mm3 (4.5-10.0)
[2022-03-11 20:26] LABS: Anion Gap 8 mmol/L (8-16); Blood Urea Nitrogen 12 mg/dL (9-20); Calcium 8.9 mg/dL (8.4-10.2); Carbon Dioxide 28 mmol/L (22-30); Chloride 104 mmol/L (98-107); Estimated Glomerular Filt Rate > 60; Glucose 72 mg/dL (65-110); Potassium 4.4 mmol/L (3.4-5.0); Sodium 140 mmol/L (137-145)
== END 2022-03-11 14:47 | disposition home or self-care (01) ==
LOC: ANHBWCLAB 14:47
PROVIDERS: PCP Family Medicine; Visit Provider Family Medicine
DX: E87.6 Hypokalemia (principal); E07.9 Disorder of thyroid, unspecified; D64.9 Anemia, unspecified
CPT/HCPCS: 36415; 80048; 84443; 85025

== ENCOUNTER 2022-06-03 14:45 | Outpatient (CLI) | payer MEDICARE, MEDICAID, SELFPAY ==
[2022-06-03 20:21] LABS: Prostate Specific Antigen 0.6 ng/mL (< OR = 4.0)
== END 2022-06-03 14:46 | disposition home or self-care (01) ==
PROVIDERS: PCP Family Medicine; Visit Provider Family Medicine
DX: E07.9 Disorder of thyroid, unspecified (principal); G47.33 Obstructive sleep apnea (adult) (pediatric); N42.9 Disorder of prostate, unspecified; Z12.5 Encounter for screening for malignant neoplasm of prostate
CPT/HCPCS: 36415; 84153; 84443; G0103

== ENCOUNTER 2022-06-26 10:29 | Outpatient (CLI) | payer MEDICARE, MEDICAID, SELFPAY ==
--- NOTE | ~2022-06-26 | CT_ITS ---
EXAMINATION: CT lung screening DATE: 06/26/2022 10:47 INDICATION: Personal history of nicotine dependence, current smoker with 50 pack year history TECHNIQUE: Computed tomography (CT) of the chest was performed without intravenous contrast. The dose -length product (DLP) was 139.98 mGy-cm. 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 COMPARISON: 10/09/2020 FINDINGS: There is moderate emphysema. Again seen are waxing and waning bilateral pulmonary nodules. No definite suspicious pulmonary nodule is identified. There are minimal groundglass opacities of the lingula and right upper lobe. There is a large sliding hiatal hernia. The heart size is normal. Ther e is mild chronic mediastinal lymphadenopathy. No pleural effusion or pneumothorax. There is scarring of the lung apices. Multiple stable thoracic vertebral body fractures are again seen. IMPRESSION: 1. Lung-RADS category 2: Benign appearance or behavior. Continue annual screening with noncontrast lo w-dose chest CT in 12 months. Reviewed, dictated and finalized at location L. D TECHNICAL SPECIALIST IMPRESSION: 1. Lung-RADS category 2: Benign appearance or behavior. Continue annual screeni ng with noncontrast low-dose chest CT in 12 months.
== END 2022-06-26 10:30 | disposition home or self-care (01) ==
PROVIDERS: PCP Family Medicine; Visit Provider Nurse Practitioner Family
DX: F17.210 Nicotine dependence, cigarettes, uncomplicated (principal)
CPT/HCPCS: 71271

== ENCOUNTER 2022-09-22 11:59 | Emergency (ER) | payer MEDICARE, MEDICAID, SELFPAY ==
--- NOTE | ~2022-09-22 | XR_ITS ---
Clinical Indication: Shortness of breath PA and lateral views of the chest: Comparison: 06/13/2020 Findings:. There is suggestion of minimal bibasilar haziness, nonspecific. Probable COPD pattern. Ca rdiomediastinal silhouette is within normal limits. Large hiatal hernia again present. Osseous struct ures are intact. Impression: Large hiatal hernia, unchanged. Questionable minimal bibasilar haziness. Correlate for any possibility of subtle pneumonia. Probable COPD pattern. Reviewed, dictated and finalized at location M. Impression: Large hiatal hernia, unchanged. Questionable minimal bibasilar haziness. Correlate for any possibility of subtl e pneumonia. Probable COPD pattern.
--- NOTE | 2022-09-22 12:03 | ED.URI ---
HPI - URI/Sore Throat General Chief Complaint: Shortness of Breath/Dyspnea Stated Complaint: Shortness of Breath Time Seen by Provider: 09/22/22 12:04 Source: patient and RN notes reviewed History of Present Illness HPI Narrative: Patient is a 67-year-old male who presents to urgent care with complaints of increased shortness of breath for the last 2-3 weeks. Patient was diagnosed with COPD and uses his prescription inhaler as directed. Patient does not have a nebulizer. Patient has not had a productive cough, fever, nausea or vomiting. Patient denies chest pain. Patient states he does still use an E cig but does not smoke nicotine. Patient has been taking an expectorant for the last couple days. Patient does not use oxygen at home. States that he tried to call his primary care doctor and they sent him to the urgent care. No other acute complaints. No acute distress noted. Patient aware of the plan of care. Some parts of this dictation were generated by voice recognition software and may contain typographical and/or grammatical inaccuracies. Related Data Home Medications Medication Instructions Recorded Confirmed uytofump-nrq-nvugq acid 300 1 tablet PO DAILY 08/06/20 06/12/22 mcg-lycopene 600 mcg-lutein 300 mcg tablet (Complete Men 50 Plus) oxycodone-acetaminophen 10 mg-325 1 tablet PO Q6H PRN Pain 03/15/21 09/22/22 mg tablet methadone 10 mg tablet 120 mg PO DAILY 03/29/21 09/22/22 Allergies Allergy/AdvReac Type Severity Reaction Status Date / Time No Known Allergies Allergy Verified 09/22/22 12:19 Review of Systems Review of Systems: CONSTITUTIONAL: Denies fever, chills, or sweats. EYES: Denies visual changes, redness, or discharge. ENT: Denies rhinorrhea, congestion, sore throat, or otalgia. CARDIOVASCULAR: Denies chest pain, palpitations, or edema. RESPIRATORY: Reports of nonproductive cough with increased dyspnea GASTROINTESTINAL: Denies abdominal pain, nausea, vomiting, or diarrhea. GENITOURINARY: Denies dysuria or hematuria. SKIN: Denies rash or itching. MUSCULOSKELETAL: Denies back pain, joint pain, or myalgia. NEUROLOGIC: Denies headache, numbness, or weakness. All other systems reviewed are negative, except as documented in HPI. [facility] Past Medical History Medical History Anxiety Arthritis Central sleep apnea Choledocholithiasis Common bile duct dilatation COPD (chronic obstructive pulmonary disease) Drug abuse and dependence Legionella pneumonia Lesion of bladder Nausea and vomiting in adult Prostate disorder Thyroid disorder Umbilical hernia Upper abdominal pain Surgical History Surgical History H/O inguinal hernia repair robotic assisted right inguinal hernia repair Family History Family History Mother No problems noted. Father Emphysema, unspecified Grandparent AA (alcohol abuse) Sibling No problems noted. Social History Social History Smoking packs per day: 2 Smoking cigarettes per day: 40.0 Years smoked: 30 Smoking pack-years: 60.00 Smoking status: Former smoker Additional smoking assessment comments: CURRENTLY E-CIGARETTES/VAPING Alcohol intake: former Drinks per week: 0 Alcohol use details: QUIT DRINKING 2012 Substance use: former Substance use type: former substance user Last use: 2006 Lack of Transportation: No Lack of Food: Never True Current Housing: I Have Housing Concerned About Future Housing: No Difficulty Paying Gas/Electric Bills: No Difficulty Paying for Meds: No Currently Unemployed: Decline to Answer Difficulty w/ Childcare or Family Care: No Living arrangements: with family Spiritual care concerns: No Comments At the time of
[2022-09-22 12:04] VITALS: BP 131/70; PULSE 87; RESP 14; TEMP 37.2; O2SAT 94
== END 2022-09-22 12:50 | disposition home or self-care (01) ==
PROVIDERS: Emergency Provider Nurse Practitioner Family; PCP Family Medicine
DX: J44.9 Chronic obstructive pulmonary disease, unspecified (principal); J18.1 Lobar pneumonia, unspecified organism; F17.290 Nicotine dependence, other tobacco product, uncomplicated; M19.90 Unspecified osteoarthritis, unspecified site
CPT/HCPCS: 71046; 99213; G0463

== ENCOUNTER 2022-12-10 08:23 | Outpatient (CLI) | payer MEDICARE, MEDICAID, SELFPAY ==
[2022-12-10 19:24] LABS: Hematocrit 43.7 % (42.0-52.0); Hemoglobin 13.4 g/dL (14.0-18.0); Mean Corpuscular HGB Conc 30.7 g/dl (32-36); Mean Corpuscular Hemoglobin 30.1 pg (26-34); Mean Corpuscular Volume 98.2 fl (80-100); Platelet Count Result 179 k/mm3 (150-375); Red Blood Count 4.45 M/mm3 (4.6-6.20); Red Cell Distribution Width 14.1 % (11.5-14.5); White Blood Count 5.6 K/mm3 (4.5-10.0)
[2022-12-10 19:42] LABS: Alanine Aminotransferase 22 U/L (6-50); Albumin Level 4.5 g/dL (3.5-5.1); Alkaline Phosphatase 59 U/L (38-126); Anion Gap 6 mmol/L (8-16); Aspartate Amino Transferase 55 U/L (17-59); Bilirubin,Total 0.6 mg/dL (0.2-1.3); Blood Urea Nitrogen 25 mg/dL (9-20); Calcium 9.1 mg/dL (8.4-10.2); Carbon Dioxide 33 mmol/L (22-30); Chloride 102 mmol/L (98-107); Cholesterol 153 mg/dL (0-200); Estimated Glomerular Filt Rate 60; Glucose 79 mg/dL (65-110); HDL Direct 58 mg/dL; Potassium 4.3 mmol/L (3.4-5.0); Sodium 141 mmol/L (137-145); Triglycerides 55 mg/dL (<150)
[2022-12-10 19:53] LABS: LDL Cholesterol Direct 69 mg/dL
[2022-12-10 20:11] LABS: Prostate Specific Antigen 0.5 ng/mL (< OR = 4.0)
== END 2022-12-10 08:24 | disposition home or self-care (01) ==
PROVIDERS: PCP Family Medicine; Visit Provider Nurse Practitioner Adult Health
DX: M06.9 Rheumatoid arthritis, unspecified (principal); D64.9 Anemia, unspecified; E07.9 Disorder of thyroid, unspecified; N42.9 Disorder of prostate, unspecified; K83.8 Other specified diseases of biliary tract; B19.20 Unspecified viral hepatitis C without hepatic coma; Z79.899 Other long term (current) drug therapy
CPT/HCPCS: 36415; 80048; 80061; 80076; 84153; 84443; 85027

== ENCOUNTER 2023-06-18 14:52 | Outpatient (CLI) | payer MEDICARE, MEDICAID, SELFPAY ==
[2023-06-18 19:08] LABS: Hematocrit 41.4 % (42.0-52.0); Mean Corpuscular HGB Conc 31.4 g/dl (32-36); Mean Corpuscular Hemoglobin 30.2 pg (26-34); Mean Corpuscular Volume 96.1 fl (80-100); Mean Platelet Volume 9.9 fl (7.4-10.4); Platelet Count Result 188 k/mm3 (150-375); Red Blood Count 4.31 M/mm3 (4.6-6.20); Red Cell Distribution Width 13.3 % (11.5-14.5); White Blood Count 9.3 K/mm3 (4.5-10.0)
[2023-06-18 19:30] LABS: Alanine Aminotransferase 27 U/L (6-50); Albumin Level 4.1 g/dL (3.5-5.1); Alkaline Phosphatase 72 U/L (38-126); Anion Gap 5 mmol/L (8-16); Aspartate Amino Transferase 39 U/L (17-59); Bilirubin,Total 0.6 mg/dL (0.2-1.3); Blood Urea Nitrogen 17 mg/dL (9-20); Calcium 8.9 mg/dL (8.4-10.2); Carbon Dioxide 28 mmol/L (22-30); Chloride 107 mmol/L (98-107); Cholesterol 144 mg/dL (0-200); Estimated Glomerular Filt Rate > 60; Glucose 67 mg/dL (65-110); HDL Direct 74 mg/dL; Potassium 4.4 mmol/L (3.4-5.0); Sodium 140 mmol/L (137-145); Triglycerides 87 mg/dL (<150)
[2023-06-18 19:41] LABS: LDL Cholesterol Direct 59 mg/dL
[2023-06-18 19:50] LABS: Vitamin D 25 Hydroxy 38.7 ng/mL
[2023-06-18 20:01] LABS: Prostate Specific Antigen 0.7 ng/mL (< OR = 4.0)
== END 2023-06-18 14:53 | disposition home or self-care (01) ==
PROVIDERS: PCP Nurse Practitioner Adult Health; Visit Provider Nurse Practitioner Adult Health
DX: D64.9 Anemia, unspecified (principal); E07.9 Disorder of thyroid, unspecified; E87.6 Hypokalemia; E78.5 Hyperlipidemia, unspecified; Z12.5 Encounter for screening for malignant neoplasm of prostate; Z79.899 Other long term (current) drug therapy; Z82.62 Family history of osteoporosis
CPT/HCPCS: 36415; 80053; 80061; 82306; 84153; 84443; 85027; G0103

== ENCOUNTER 2023-06-29 13:38 | Outpatient (CLI) | payer MEDICARE, MEDICAID, SELFPAY ==
--- NOTE | ~2023-06-29 | CT_ITS ---
EXAMINATION: CT lung screening DATE: 06/29/2023 14:08 INDICATION: Personal history of nicotine dependence, prior smoker with 40 pack year history TECHNIQUE: Computed tomography (CT) of the chest was performed without intravenous contrast. The dose -length product (DLP) was 102.78 mGy-cm. 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 COMPARISON: 06/26/2022 FINDINGS: There is moderate emphysema. There is scarring of the lung apices. There is a large sliding hiatal hernia. Waxing and waning bilateral pulmonary nodules are again noted. No definite suspicious lung nodule is identified. Mild chronic mediastinal lymphadenopathy is again noted. The heart size i s normal. There is calcified coronary artery atherosclerosis. There are multiple chronic and stable t horacic compression fractures. IMPRESSION: 1. Lung-RADS category 2: Benign appearance or behavior. Continue annual screening with noncontrast lo w-dose chest CT in 12 months. Reviewed, dictated and finalized at location L. INE MONITOR IMPRESSION: 1. Lung-RADS category 2: Benign appearance or behavior. Continue annual screeni ng with noncontrast low-dose chest CT in 12 months.
== END 2023-06-29 13:39 | disposition home or self-care (01) ==
LOC: ANHIMG 13:40
PROVIDERS: PCP Nurse Practitioner Adult Health; Visit Provider Nurse Practitioner Family
DX: Z12.2 Encounter for screening for malignant neoplasm of respiratory organs (principal); Z87.891 Personal history of nicotine dependence
CPT/HCPCS: 71271

== ENCOUNTER 2023-08-18 14:33 | Outpatient (CLI) | payer MEDICARE, MEDICAID, SELFPAY ==
--- NOTE | ~2023-08-18 | XR_ITS ---
EXAMINATION: [id number]_[id number] INDICATION: Pleurodynia TECHNIQUE: A frontal view of the chest and 3 views of the left ribs were obtained. COMPARISON: 09/22/2022 FINDINGS: There are minimal airspace opacities of the lung bases, likely atelectasis. There is a larg e hiatal hernia. The heart size is normal. No pleural effusion or pneumothorax. There are old, healed left sided rib fractures. No acute fracture is identified. IMPRESSION: 1. No acute cardiopulmonary abnormality or evidence of acute rib fracture. 2. Large hiatal hernia. Reviewed, dictated and finalized at location F.
== END 2023-08-18 14:34 | disposition home or self-care (01) ==
LOC: ANHBWCIMG 14:36
PROVIDERS: PCP Nurse Practitioner Adult Health; Visit Provider Nurse Practitioner Adult Health
DX: R07.81 Pleurodynia (principal); K44.9 Diaphragmatic hernia without obstruction or gangrene
CPT/HCPCS: 71101

== ENCOUNTER 2023-09-19 13:54 | Emergency (ER) | payer MEDICARE, MEDICAID, SELFPAY ==
--- NOTE | ~2023-09-19 | XR_ITS ---
EXAM: XR hand RT min 3V DATE: 09/19/2023 14:52 HISTORY: crush injury, LACERATIONS TO DORSAL METACARPALS AND 4TH DIGI . COMPARISON: None available. FINDINGS: Decreased mineralization. No fracture or dislocation. No lytic or blastic lesion. Moderate arthritic changes with extensive chondrocalcinosis. No erosion or periosteal change. Dorsal soft tis geovanny laceration at the level of the metacarpal heads. Subcutaneous gas between the third and fourth pr oximal digits. IMPRESSION: No acute osseous finding the right hand. Reviewed, dictated and finalized at location K.
[2023-09-19 14:00] VITALS: BP 141/92; PULSE 78; RESP 16; TEMP 37; O2SAT 95
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
== END 2023-09-19 15:18 | disposition home or self-care (01) ==
PROVIDERS: Emergency Provider Registered Nurse; PCP Nurse Practitioner Adult Health
DX: S61.204A Unspecified open wound of right ring finger without damage to nail, initial encounter (principal); S61.411A Laceration without foreign body of right hand, initial encounter; S60.221A Contusion of right hand, initial encounter; X58.XXXA Exposure to other specified factors, initial encounter; M19.90 Unspecified osteoarthritis, unspecified site; J44.9 Chronic obstructive pulmonary disease, unspecified
CPT/HCPCS: 73130; 99213; G0463

== ENCOUNTER 2023-11-04 11:35 | Outpatient (CLI) | payer MEDICARE, MEDICAID, SELFPAY ==
--- NOTE | 2023-11-05 07:03 | WPDSIXMINUTE ---
Six Minute Walk Procedure Procedure Performed Pulmonary Stress Test (6 min walk) Six Minute Walk Six Minute Walk: This is a 6 minute walk test. The test was performed and interpreted in accordance with the 2014 ERS/ATS task force guidelines. Findings: The patient's resting room air oxygen saturation measured by pulse oximetry was 94% and heart rate was 89 bpm. Patient ambulated for 243 meters and oxygen saturation remained 91 to 93%. Heart rate at the end of the study was 90 bpm. The patient did not qualify for supplemental oxygen at rest or with ambulation. There are no prior studies for comparison.
--- NOTE | 2023-11-05 07:04 | WPDPFTINT ---
PFT Procedure Performed PFT Procedure Performed Spirometry with Pre/Post Bronchodilator Plethysmography (Lung Vol) Diffusing Cap (DLCO) Flow Vol Loop PFT Interpretation This is a pulmonary function test with pre and post-bronchodilator spirometry, plethysmography and diffusing capacity. The test was performed and results interpreted in accordance with the 2019 and 2005 ATS/ERS Task Force guidelines respectively using the Global Lung Function Initiative-2012 reference equations. Patient demonstrated good effort and cooperation. Reproducibility criteria were met. The quality of the pre bronchodilator spirometry maneuver was Grade A and post bronchodilator spirometry maneuver was Grade A. Findings: Spirometry: There is decreased maximal expiratory airflow at all lung volumes with a concave expiratory flow tracing. The contour the inspiratory flow tracing is normal. The pre bronchodilator FVC is 2.46 L, 61% predicted. The pre bronchodilator FEV1 is 1.28 L, 42% predicted. The pre bronchodilator FEV1: FVC ratio is 52%. The post bronchodilator FVC is 2.56 L, representing a 4% increase. The post bronchodilator FEV1 is 1.23 L, representing a 4% decrease. The post bronchodilator FEV1: FVC ratio is 48%. Plethysmography: The total lung capacity is 8.61 L, 130% predicted. The functional residual capacity is 2.97 L, 85% predicted. The residual volume is 2.94 L, 126% predicted. The residual volume: Total lung capacity ratio is 34%. Diffusing capacity: The diffusing capacity unadjusted for hemoglobin and carboxyhemoglobin is 10.6, 41% predicted. The diffusing capacity adjusted for alveolar volume is 2.90, 71% predicted. Impression: There is a severe obstructive abnormality. There is no significant improvement after inhaling a single dose of albuterol. The Total lung capacity is increased with a normal residual volume to total lung volume ratio which is consistent with large lungs. The diffusing capacity unadjusted for hemoglobin and carboxyhemoglobin is moderately decreased and normalizes when adjusted for alveolar volume. There are no prior studies for comparison
== END 2023-11-04 11:36 | disposition home or self-care (01) ==
LOC: ANHPFT 11:36
PROVIDERS: PCP Nurse Practitioner Adult Health; Visit Provider Internal Medicine Pulmonary Disease
DX: J44.9 Chronic obstructive pulmonary disease, unspecified (principal); Z87.891 Personal history of nicotine dependence; R94.2 Abnormal results of pulmonary function studies
CPT/HCPCS: 94060; 94618; 94726; 94729

== ENCOUNTER 2023-12-17 13:43 | Outpatient (CLI) | payer MEDICARE, MEDICAID, SELFPAY ==
[2023-12-17 19:48] LABS: Basophils Absolute Auto 0.1 K/mm3 (0.0-0.1); Basophils Percent Auto 1.3 % (0.2-1.2); Eosinophils Absolute Auto 0.5 K/mm3 (0-0.3); Eosinophils Percent Auto 7.2 % (0-4.4); Hematocrit 44.5 % (42.0-52.0); Hemoglobin 13.8 g/dL (14.0-18.0); Immature Granulocyte Absolute 0.04 K/mm3 (0.00-0.031); Immature Granulocyte Percent A 0.6 % (0-0.5); Lymphocytes Absolute Auto 1.69 K/mm3 (0.9-3.2); Lymphocytes Percent Auto 25.3 % (18.3-44.2); Mean Corpuscular Hemoglobin 29.9 pg (26-34); Mean Corpuscular Volume 96.3 fl (80-100); Mean Platelet Volume 10.3 fl (7.4-10.4); Monocytes Absolute Auto 0.5 K/mm3 (0.1-0.6); Monocytes Percent Auto 7.8 % (2.6-8.5); Neutrophils Absolute Auto 3.9 K/mm3 (1.3-6.7); Neutrophils Percent Auto 57.8 % (45.5-73.1); Platelet Count Result 182 k/mm3 (150-375); Red Blood Count 4.62 M/mm3 (4.6-6.20); Red Cell Distribution Width 13.2 % (11.5-14.5); White Blood Count 6.7 K/mm3 (4.5-10.0)
[2023-12-17 19:49] LABS: Alanine Aminotransferase 17 U/L (6-50); Albumin Level 4.6 g/dL (3.5-5.1); Alkaline Phosphatase 70 U/L (38-126); Anion Gap 12 mmol/L (4-12); Aspartate Amino Transferase 55 U/L (17-59); Bilirubin,Total 0.5 mg/dL (0.2-1.3); Blood Urea Nitrogen 15 mg/dL (9-20); Carbon Dioxide 28 mmol/L (22-30); Chloride 98 mmol/L (98-107); Cholesterol 140 mg/dL (0-200); Estimated Glomerular Filt Rate > 60; Glucose 74 mg/dL (65-110); HDL Direct 55 mg/dL; Potassium 4.2 mmol/L (3.4-5.0); Sodium 138 mmol/L (137-145); Triglycerides 119 mg/dL (<150)
[2023-12-17 20:02] LABS: LDL Cholesterol Direct 54 mg/dL
[2023-12-17 20:16] LABS: Prostate Specific Antigen 0.8 ng/mL (< OR = 4.0)
== END 2023-12-17 13:44 | disposition home or self-care (01) ==
PROVIDERS: PCP Nurse Practitioner Adult Health; Visit Provider Nurse Practitioner Adult Health
DX: Z12.5 Encounter for screening for malignant neoplasm of prostate (principal); E78.5 Hyperlipidemia, unspecified
CPT/HCPCS: 36415; 80053; 80061; 84153; 84443; 85025; G0103

== ENCOUNTER 2024-05-24 10:26 | Emergency (ER) | payer MEDICARE, MEDICAID, SELFPAY ==
--- NOTE | ~2024-05-24 | XR_ITS ---
Left wrist Technique: PA, oblique, lateral, and ulnar deviation views were obtained. Clinical History: Pain Findings: There is an acute, transverse, mildly impacted fracture the distal radius. There is mild po sitive ulnar variance. No other fracture or dislocation seen. There is moderate degenerative change o f the triscaphe joint. Joint spaces are preserved. Soft tissues are unremarkable. Impression: Transverse fracture the distal radius, with mild impaction. Degenerative change, as above. Reviewed, dictated and finalized at location M. HER COUNSELOR Impression: Transverse fracture the distal radius, with mild impaction. Degenerative change, as above.
--- NOTE | ~2024-05-24 | XR_ITS ---
AP and oblique views of the right ribs, and PA chest radiograph Clinical History: Pain Findings: No rib fracture is seen. Osseous alignment is anatomic. Lungs are clear, without focal cons olidation or pleural effusion. Cardiomediastinal contour is within normal limits. Large hiatal hernia present. Impression: No rib fracture is seen. Clear lungs. Reviewed, dictated and finalized at [facility]. OR SALES MANAGER Impression: No rib fracture is seen. Clear lungs.
[2024-05-24 10:40] VITALS: BP 116/57; PULSE 76; RESP 20; TEMP 36.8; O2SAT 94
--- NOTE | 2024-05-24 11:52 | ED_ITS ---
HPI - General Adult General Chief complaint: Extremity Injury, Upper Stated complaint: Fall Injury/Right Wrist Source: patient Mode of arrival: ambulatory Limitations: no limitations History of Present Illness HPI narrative: Pt presents for evaluation after experiencing a fall yesterday. He slipped when walking up steps. He hit his right ribs and landed with his left upper extremity beneath him. He did not hit his head. No LOC. He is not on blood thinnerHe now has pain in right lateral ribs and left wrist. Pain in the ribs is rated 2/10 and left wrist is 8/10. He has chronic shortness of breath secondary to emphysema. His shortness of breath at the present time is not worse than his baseline. He states that movement makes his symptoms worse. He has decreased range of motion in left wrist. He takes Percocet for chronic joint pain. He is right hand dominant. Related Data Home Medications ?Medication ?Instructions ?Recorded ?Confirmed ?Last Taken ?Type [id number] 300 mcg-K 60 1 tablet PO DAILY 08/06/20 05/04/24 08/12/20 History mcg-lycop 600 mcg-lutein 300 mcg tablet (Complete Men 50 Plus) oxycodone-acetaminophen 10 mg-325 1 tablet PO Q6H PRN Pain 03/15/21 05/04/24 Unknown History mg tablet methadone 10 mg tablet 120 mg PO DAILY 03/29/21 05/04/24 Unknown History atorvastatin 20 mg tablet 20 mg PO DAILY 01/08/23 05/04/24 Unknown History Allergies Allergy/AdvReac Type Severity Reaction Status Date / Time No Known Allergies Allergy Verified 05/24/24 11:03 Review of Systems Review of Systems: CONSTITUTIONAL: Denies fever, chills, or sweats. EYES: Denies visual changes, redness, or discharge. ENT: Denies rhinorrhea, congestion, sore throat, or otalgia. CARDIOVASCULAR: Denies chest pain, palpitations, or edema. RESPIRATORY: Denies cough or dyspnea. GASTROINTESTINAL: Denies abdominal pain, nausea, vomiting, or diarrhea. GENITOURINARY: Denies dysuria or hematuria. SKIN: Reports bruising to the left wrist. MUSCULOSKELETAL: Reports left wrist pain and pain in the right ribs. NEUROLOGIC: Denies headache, numbness, dizziness, or weakness. PSYCHIATRIC: Denies anxiety or depression. [facility] Past Medical History Medical History Central sleep apnea Umbilical hernia Common bile duct dilatation Lesion of bladder Nausea and vomiting in adult Choledocholithiasis Upper abdominal pain Legionella pneumonia Drug abuse and dependence Prostate disorder Arthritis Anxiety Thyroid disorder COPD (chronic obstructive pulmonary disease) Surgical History Surgical History H/O inguinal hernia repair robotic assisted right inguinal hernia repair Family History Family History Mother No problems noted. Father Emphysema, unspecified Grandparent AA (alcohol abuse) Sibling No problems noted. Social History Social History Smoking packs per day: 2 Smoking cigarettes per day: 40.0 Years smoked: 30 Smoking pack-years: 60.00 Smoking status: Former smoker Tobacco type: e-cigarettes/vaping Additional smoking assessment comments: CURRENTLY E-CIGARETTES/VAPING No nicotine vape Alcohol intake: former Drinks per week: 0 Alcohol use details: QUIT DRINKING 2012 Substance use: former Substance use type: former substance user Last use: 2006 Lack of Transportation: No Lack of Food: Never True Current Housing: I Have Housing Concerned About Future Housing: No Difficulty Paying Gas/Electric Bills: No Difficulty Paying for Meds: No Currently Unemployed: Decline to Answer Difficulty w/ Childcare or Family Care: No Living arrangements: with family Spiritual care concerns: No Exam Narrative: GENERAL: Well-appearing, well-nourished, and in no acute distress. HEAD: Normocephalic, atraumatic. EYES: PERRLA and EOMI. ENT: Nares clear, no rhinorrhea or epistaxis. Mucous membranes moist. Oropharynx without tonsillar hypertrophy exudate or other lesions. Bilateral TMs pearly loera nonbulging NECK: Supple. No adenopathy or masses. No carotid bruits or JVD CHEST: . There is tenderness to the right lateral lower ribs. Clear to auscultation. No respiratory distress. No wheezes rales or rhonchi HEART: Regular rate and rhythm. No murmur heard. Normal peripheral pulses. ABDOMEN: Soft, nontender, nondistended, normal active bowel sounds. EXTREMITIES: Decreased range of motion of the left wrist. 4/5 hand brake reliner strength on the left. 5/5 hand brake reliner strength on the right. Left wrist is tender to palpation. SKIN: There is ecchymosis noted to the left wrist NEURO: No focal deficits. Alert and oriented x3. PSYCH: Normal mood and affect. Course Course Emergency Course: This is a 68-year-old male who presented for evaluation of left wrist and right rib pain following a fall yesterday. X-rays of the wrist showed a distal left radius fracture. X-rays of the ribs and chest negative for fracture. He was placed in a sugar-tong splint and tolerated well. Provided with a sling. He ready has hydrocodone available at home. He may take ibuprofen between doses. Follow up with primary provider and ortho. Go to the ER for worsening symptoms. Pt in agreement with plan of care. Level of Care: Express Care Visit Vital Signs Vital signs: Vital Signs Temperature 36.8 C 05/24/24 10:40 Pulse Rate 76 05/24/24 10:40 Respiratory Rate 20 05/24/24 10:40 Blood Pressure 116/57 L 05/24/24 10:40 Pulse Oximetry 94 05/24/24 10:40 Oxygen Delivery Room Air 05/24/24 10:40 Temperature 36.8 C 05/24/24 10:40 Pulse Rate 76 05/24/24 10:40 Respiratory Rate 20 05/24/24 10:40 Blood Pressure 116/57 L 05/24/24 10:40 Pulse Oximetry 94 05/24/24 10:40 Oxygen Delivery Room Air 05/24/24 10:40 Procedures Orthopedic Splinting/Casting Injury #1: Splinting/Casting Date: 05/24/24 Splinting/Casting Time: 13:04 Side: left Upper Extremity Injury Location: wrist Upper Extremity Immobilizer: sugar tong splint Splint: customized in ED Pre-Procedure Neuro Vascular Exam: normal Post-Procedure Neuro Vascular Exam: normal Medical Decision Making Vital Signs Vital Signs: Vital Signs Temperature 36.8 C 05/24/24 10:40 Pulse Rate 76 05/24/24 10:40 Respiratory Rate 20 05/24/24 10:40 Blood Pressure 116/57 L 05/24/24 10:40 Pulse Oximetry 94 05/24/24 10:40 Oxygen Delivery Room Air 05/24/24 10:40 Temperature 36.8 C 05/24/24 10:40 Pulse Rate 76 05/24/24 10:40 Respiratory Rate 20 05/24/24 10:40 Blood Pressure 116/57 L 05/24/24 10:40 Pulse Oximetry 94 05/24/24 10:40 Oxygen Delivery Room Air 05/24/24 10:40 Imaging Data Radiologist's impression: Ordering Physician: Mario Koch APRN Date of Service: 05/24/24 Procedure(s): XR ribs RT w PA CXR Accession Number(s): [id number] cc: Mario Koch APRN; Kathe Ambrocio APRN~ AP and oblique views of the right ribs, and PA chest radiograph Clinical History: Pain Findings: No rib fracture is seen. Osseous alignment is anatomic. Lungs are clear, without focal consolidation or pleural effusion. Cardiomediastinal contour is within normal limits. Large hiatal hernia present. Impression: No rib fracture is seen. Clear lungs. Ordering Physician: Mario Koch APRN Date of Service: 05/24/24 Procedure(s): XR wrist LT min 3V Accession Number(s): [id number] cc: Mario Koch APRN; Kathe Ambrocio APRN~ Left wrist Technique: PA, oblique, lateral, and ulnar deviation views were obtained. Clinical History: Pain Findings: There is an acute, transverse, mildly impacted fracture the distal radius. There is mild positive ulnar variance. No other fracture or dislocation seen. There is moderate degenerative change of the triscaphe joint. Joint spaces are preserved. Soft tissues are unremarkable. Impression: Transverse fracture the distal radius, with mild impaction. Degenerative change, as above. Discharge Plan Discharge Clinical Impression: Contusion of rib on right side, Closed fracture of distal end of left radius Patient Disposition: Home, Self-Care Condition: Stable Instructions: Antibiotic Form, Wrist Fracture in Adults (ED), Rib Contusion (ED) Patient Language: Divehi Prescriptions: No Action oxycodone-acetaminophen 10-325 mg tablet 1 tablet PO Q6H PRN (Reason: Pain) methadone 10 mg tablet 120 mg PO DAILY celecoxib 200 mg capsule 200 mg PO DAILY Qty: 30 0RF atorvastatin 20 mg tablet 20 mg PO DAILY Trelegy Ellipta 100-62.5-25 mcg blister with device 1 inh inhalation Q24H Qty: 60 4RF Complete Men 50 Plus 300-600-300 mcg Tablet 1 tablet PO DAILY omeprazole 20 mg capsule,delayed release(DR/EC) 20 mg PO DAILY Qty: 90 1RF potassium chloride 10 mEq tablet extended release 10 meq PO DAILY Qty: 30 2RF clonazepam 0.5 mg tablet 0.5 mg PO TID PRN (Reason: anxiety) Qty: 90 1RF albuterol sulfate 90 mcg/actuation HFA aerosol inhaler 2 inh inhalation Q4H PRN (Reason: shortness of breath or wheezing) Qty: 8.5 6RF mirtazapine 15 mg tablet 15 mg PO HS Qty: 90 1RF levothyroxine 75 mcg tablet See Rx Instructions .ROUTE .COMPLEX Qty: 90 0RF Dose Instruction: TAKE 1 TABLET BY MOUTH DAILY Rx Instructions: TAKE 1 TABLET BY MOUTH DAILY sertraline 150 mg capsule 150 mg PO DAILY Qty: 90 0RF tamsulosin 0.4 mg capsule See Rx Instructions .ROUTE .COMPLEX Qty: 180 1RF Dose Instruction: TAKE 1 CAPSULE BY MOUTH TWICE A DAY Rx Instructions: TAKE 1 CAPSULE BY MOUTH TWICE A DAY bupropion HCl 150 mg tablet sustained-release 12 hr See Rx Instructions .ROUTE .COMPLEX Qty: 90 0RF Dose Instruction: TAKE 1 TABLET BY MOUTH EVERY MORNING Rx Instructions: TAKE 1 TABLET BY MOUTH EVERY MORNING Follow-up/Referrals: Elfego De La Paz MD [Physician] - Kathe Ambrocio APRN [Primary Care Provider] - Time of Disposition: 12:54
--- OUTSIDE RECORDS SUMMARY | 2024-05-31 23:28 | XMS_ITS | Clinical Summary ---
Author Organization [facility] Address [address] [place] [address] Care Team Providers Care Boilermaker Loftsman Name Role Phone Talia Bergeron LEGISLATIVE ANALYST-DIRECTOR OF PROFESSIONAL SERVICES Primary Care Provider [phone] Source Comments [employer] [facility],non-owned Affiliates and Associated Physician Practices is amultiple site organization consisting of ambulatory clinics and hospital sitesin [place], [place], [place] and [place]. This disclosure is being madepursuant to the Care Everywhere program and may not contain all information available regarding this patient. Last updated 18.[facility] Allergies No known active allergies Medications * Be aware that medications may not be up to date on this document. Alwaysverify current medications with the patient. Medication Sig Dispensed Refills Start Date End Date Status albuterol (Proventil;Ventolin) (2.5 MG/3ML) 0.083% nebulizer solution Inhale by mouth 4 times daily as needed for Shortness of Breath or Wheezing Active budesonide-formoterol (Symbicort) 80-4.5 MCG/ACT inhaler Inhale 2 (two) puffs by mouth 2 times daily Active oxyCODONE-acetaminoph en (Percocet) 10-325 MG tablet Take 1 (one) tablet by mouth every 6 hours as needed for Pain Active tamsulosin (Flomax) 0.4 MG capsule Take 1 (one) capsule by mouth once daily At the same time every day after a meal. Active sertraline (Zoloft) 50 MG tablet Take 1.5 (one and one-half) tablets by mouth once daily Active levothyroxine (Synthroid) 75 MCG tablet Take 1 (one) tablet by mouth daily before breakfast Active methadone (Dolophine) 5 MG/5ML oral solution Take 120 mL by mouth once daily Active Social History Tobacco Use Types Packs/Day Years Used Date Smoking Tobacco: Former Cigarettes Smokeless Tobacco: Never Sex and Gender Information Value Date Recorded Sex Assigned at Not on file Gender Identity Not on file Sexual Orientation Not on file Last Filed Vital Signs Vital Sign Reading Time Taken Comments Blood Pressure 116/79 07/10/2022 1:30 PM PULLMAN CAR CLERK Pulse 62 07/10/2022 1:30 PM PULLMAN CAR CLERK Temperature 36.8 ??C (98.2 ??F) 07/10/2022 1:10 PM CS T Respiratory Rate 18 07/10/2022 1:30 PM PULLMAN CAR CLERK Oxygen Saturation 94% 07/10/2022 1:30 PM PULLMAN CAR CLERK Inhaled Oxygen Concentration - - Weight 68 kg (150 lb) 07/10/2022 12:36 PM PULLMAN CAR CLERK Height 177.8 cm (5' 10 ) 07/10/2022 12:36 PM PULLMAN CAR CLERK Body Mass Index 21.52 07/10/2022 12:36 PM PULLMAN CAR CLERK Plan of Treatment Health Maintenance Due Date Last Done Comments COLOGUARD (AGES 45-75) - COL ON CA SCREENING 1954 COLON MONITORING 1954 COLONOSCOPY - COLON CA SCREENING 1954 CT COLONOGRAPHY - COLON CA SCREENING 1954 Colorectal Cancer Screening 1954 FIT - COLON CA SCREENING 1954 FLEX SIG - COLON CA SCREENING 1954 LIPID TESTING 1954 HEPATITIS C SCREENING 06/13/1972 DTAP/TDAP/TD VACCINES (1 - Tdap) 1973 ZOSTER VACCINE (1 of 2) 2004 AAA SCREENING 2019 PNEUMOCOCCAL VACCINE 65+ (1 of 1 - PCV) 2019 DEPRESSION SCREENING 05/25/2023 MEDICARE AWV ? CALENDAR YEAR 2023 COVID-19 VACCINE (1 - 2023-2 5 season) 2024 INFLUENZA VACCINE (#1) 2024 Respiratory Syncytial Virus (RSV) Vaccine Pt: or over 60 yrs (1 - 1-dose 75+ series) 2029 HEPATITIS B VACCINE Aged Out No longe r eligible based on patient's age to complete this topic HIB VACCINE Aged Out No longer eligi ble based on patient's age to complete this topic HPV VACCINE Aged Out No longer eligi ble based on patient's age to complete this topic MENINGOCOCCAL VACCINE Aged Out No priscila jennifer eligible based on patient's age to complete this topic Care Teams Boilermaker Loftsman Relationship Specialty Start Date End Date Talia Bergeron, LEGISLATIVE ANALYST-DIRECTOR OF PROFESSIONAL SERVICES [address] [place], [place] [id number] PCP - General 02/15/15
--- OUTSIDE RECORDS SUMMARY | 2024-05-31 23:28 | XMS_ITS | Encounter Summary ---
Author Organization [facility] Address [address] [facility] [place] [address] Care Team Providers Care Rail Setter Name Role Phone Talia Bergeron DIRECT CASTING OPERATOR-PATENT SOLICITOR Primary Care Provider [phone] Reason for Visit * Auth/Cert (Routine) Specialty Diagnoses / Procedures Referred By Ellis smiley Referred To Contact Procedures ESOPHAGOGASTRODUODENOSCOPY (EGD) DIAGNOSTIC Referral ID Status Reason Start Date Expiration Date Visits Re quested Visits Authorized [id number] 1 1 Encounter Details Date Type Department Care Team (Latest Contact Info) Description 07/10/2022 12:30 PM TRUCK CRANE OPERATOR HELPER - 07/10/2022 1:00 PM TRUCK CRANE OPERATOR HELPER Surgery [facility] - Endoscopy Services [address] [place] [id number] Gato Renteria MD [address] [place] [phone] ESOPHAGOGASTRODUODENOSCOPY (EGD) DIAGNOSTIC Surgery Details Date/Time Status Location OR Service Patient Class Case Class Case Type Trauma Case? 07/10/2022 12:30 PM Posted [facility] 01 Gastroenterology Surgery Day Care Elective > 5 days Panel 1 Procedure LRB Anes Op Region Wound Class Comments ESOPHAGOGASTRODUODENOSCOPY ( EGD) DIAGNOSTIC N/A MAC Clean Contaminated Surgeon Surgeon Role Service Panel Gato Renteria MD Primary Gastroenterology 1 documented in this encounter Social History Tobacco Use Types Packs/Day Years Used Date Smoking Tobacco: Former Cigarettes Smokeless Tobacco: Never Sex and Gender Information Value Date Recorded Sex Assigned at Not on file Gender Identity Not on file Sexual Orientation Not on file documented as of this encounter Last Filed Vital Signs Vital Sign Reading Time Taken Comments Blood Pressure 130/82 07/10/2022 12:56 PM TRUCK CRANE OPERATOR HELPER Pulse 67 07/10/2022 12:36 PM TRUCK CRANE OPERATOR HELPER Temperature 36.4 ??C (97.5 ??F) 07/10/2022 12:[address] Respiratory Rate 16 07/10/2022 12:36 PM TRUCK CRANE OPERATOR HELPER Oxygen Saturation 92% 07/10/2022 12:59 PM TRUCK CRANE OPERATOR HELPER Inhaled Oxygen Concentration - - Weight 68 kg (150 lb) 07/10/2022 12:36 PM TRUCK CRANE OPERATOR HELPER Height 177.8 cm (5' 10 ) 07/10/2022 12:36 PM TRUCK CRANE OPERATOR HELPER Body Mass Index 21.52 07/10/2022 12:36 PM TRUCK CRANE OPERATOR HELPER documented in this encounter Medications at Time of Discharge Medication Sig Dispensed Refills Start Date End Date albuterol (Proventil;Ventolin) (2.5 MG/3ML) 0.083% nebulizer solution Inhale by mouth 4 times daily as needed for Shortness of Breath or Wheezing budesonide-formoterol (Symbicort) 80-4.5 MCG/ACT inhaler Inhale 2 (two) puffs by mouth 2 times daily levothyroxine (Synthroid) 75 MCG tablet Take 1 (one) tablet by mouth daily before breakfast methadone (Dolophine) 5 MG/5ML oral solution Take 120 mL by mouth once daily oxyCODONE-acetaminophen (Percocet) 10-325 MG tablet Take 1 (one) tablet by mouth every 6 hours as needed for Pain sertraline (Zoloft) 50 MG tablet Take 1.5 (one and one-half) tablets by mouth once daily tamsulosin (Flomax) 0.4 MG capsule Take 1 (one) capsule by mouth once daily At the same time every day after a meal. documented as of this encounter H&P Notes * Gato Renteria MD - 07/10/2022 12:48 PM CST ENDOSCOPY PRE-PROCEDURE MEDICAL HISTORY & PHYSICAL Saravanan Lanza 67 year old male BP 113/79 Pulse 67 Temp 97.5 ??F (36.4 ??C) (Oral) Resp 16 Ht 1.778 m (5' 10 ) Wt 68 kg (150 lb) History: Past Medical History: Diagnosis Date ??? COPD (chronic obstructive pulmonary disease) ([facility]) ??? Emphysema lung ([facility]) ??? History of drug abuse ([facility]) on methadaone for 12yrs ??? Osteoarthritis No Known Allergies Medications Prior to Admission Medication Sig Dispense Refill ??? albuterol (Proventil;Ventolin) (2.5 MG/3ML) 0.083% nebulizer solution Inhale by mouth 4 times daily as needed for Shortness of Breath or Wheezing ??? budesonide-formoterol (Symbicort) 80-4.5 MCG/ACT inhaler Inhale 2 (two) puffs by mouth 2 times daily ??? levothyroxine (Synthroid) 75 MCG tablet Take 1 (one) tablet by mouth daily before breakfast ??? methadone (Dolophine) 5 MG/5ML oral solution Take 120 mL by mouth once daily ??? oxyCODONE-acetaminophen (Percocet) 10-325 MG tablet Take 1 (one) tablet by mouth every 6 hours as needed for Pain ??? sertraline (Zoloft) 50 MG tablet Take 1.5 (one and one-half) tablets by mouth once daily ??? tamsulosin (Flomax) 0.4 MG capsule Take 1 (one) capsule by mouth once daily At the same time every day after a meal. Current Facility-Administered Medications Medication Dose Route Frequency Provider Last Rate Last Admin ??? 0.9% NaCl infusion Intravenous Continuous Gato Renteria MD ??? 0.9% NaCl injection 3 mL 3 mL Intracatheter pre-Procedure multiple Gato Renteria MD Facility-Administered Medications Ordered in Other Encounters Medication Dose Route Frequency Provider Last Rate Last Admin ??? 0.9% NaCl infusion Intravenous CONTINUOUS PRN Felix Broderick, TAZ-BONDED STRAND OPERATOR [place] Bag at [id number] Physicial Exam: General appearance: alert, cooperative, no distress Head and neck. No JVD, No enlarged lymph nodes or thyromegaly Lungs: breath sounds normal and symmetric; no rales or wheezes Heart: regular rhythm, normal S1 and S2, without murmurs, gallops or rubs Abdomen: soft without mass, non-tender, with normal bowel sounds Extremities: no clubbing, cyanosis or edema Skin. No rash, discoloration ASA Evaluation and Anesthesia Plan: Anesthesia administered per Anesthesia Department Indication(s) for Procedure: Abdominal Pain Procedure Planned: EGD Gato Renteria MD K CRANE OPERATOR HELPER documented in this encounter Plan of Treatment Scheduled Orders Name Type Priority Associated Diagnoses Orde r Schedule EGD GI Routine ONCE for 1 Occ urrences starting 07/10/2022 until 07/10/2022 documented as of this encounter Procedures Procedure Name Priority Date/Time Associated Diagnosis Comments HELICOBACTER PYLORI UREASE (STL) STAT 07/10/2022 1:04 PM TRUCK CRANE OPERATOR HELPER Diagnosis unknown NE ED EGD FLEX TRANSORAL DX 07/10/2022 12:30 PM TRUCK CRANE OPERATOR HELPER EGD Routine 07/10/2022 11:52 AM TRUCK CRANE OPERATOR HELPER documented in this encounter Results * HELICOBACTER PYLORI UREASE (STL) (07/10/2022 1:04 PM TRUCK CRANE OPERATOR HELPER) Helicobacter pylori Urease Initial Negative Negative 07/11/2022 1:01 PM TRUCK CRANE OPERATOR HELPER [facility] Helicobacter pylori Urease Final Negative Negative 07/11/2022 1:01 PM TRUCK CRANE OPERATOR HELPER [facility] Comment:This is an appended report. These results have been appended to a previously preliminary verified report. Microbiology GASTRIC ANTRAL BIOPSY SPECIMEN / Unknown 07/10/2022 1:04 PM TRUCK CRANE OPERATOR HELPER 07/10/2022 4:04 PM TRUCK CRANE OPERATOR HELPER Gato Renteria MD LAB - MICROBIOLOGY O RDERABLES [facility] [address] [place] [address] * EGD (07/10/2022 11:52 AM TRUCK CRANE OPERATOR HELPER) Report Endoscopy POC _ Patient Name: Saravanan Myla ? Procedure Date: 07/10/2022 11:52 AM ? Date of : 1955 ?Admit Type: Outpatient Age: 67 ? Gender: Male Attending MD: Gato Renteria MD ? _ Procedure: ? Upper GI endoscopy Indications: ? Abnormal MRI of the GI tract Providers: ? Gato Renteria MD (Doctor) Referring MD: ?Talia Bergeron NP (Referring MD) Medicines: ? Monitored Anesthesia Care Complications: ? No immediate complications. _ Estimated Blood Loss: ? Estimated blood loss: none. Procedure: ? After obtaining informed consent, the endoscope was ? passed under direct vision. Throughout the procedure, ? the patient's blood pressure, pulse, and oxygen ? saturations were monitored continuously. The Endoscope ? was introduced through the mouth, and advanced to the ? second part of duodenum. The upper GI endoscopy was ? accomplished without difficulty. The patient tolerated ? the procedure well. ? Findings: ? The esophagus was normal. ? Diffuse mildly erythematous mucosa without bleeding was found in the ? entire examined stomach. Biopsies were taken with a cold forceps for ? Helicobacter pylori testing using CLOtest. Estimated blood loss: none. ? The examined duodenum was normal. _ ? Impression: ?- Normal esophagus. ? - Erythematous mucosa in the stomach. Biopsied. ? - Normal examined duodenum. No ampullary lesion to ? explain dilated bile duct Recommendation: ?- Observe patient's clinical course. If LFts rising ? can do MRCP/ERCP ? Procedure Code(s): ? --- Professional --- ? 26979, Esophagogastrodu odenoscopy, flexible, transoral; with biopsy, ? single or multiple ? --- Technical --- ? 43805, Esophagogastrodu odenoscopy, flexible, transoral; with biopsy, ? single or multiple Diagnosis Code(s): ? --- Professional --- ? R93.3, Abnormal findings on diagnostic imaging of other parts of ? digestive tract ? K31.89, Other diseases of stomach and duodenum ? --- Technical --- ? R93.3, Abnormal findings on diagnostic imaging of other parts of ? digestive tract ? K31.89, Other diseases of stomach and duodenum CPT copyright 2019 [employer] [place] [employer]. All rights reserved. The codes documented in this report are preliminary and upon personal chef review may be revised to meet current compliance requirements. Dr. Gato Renteria MD Gato Renteria MD 07/10/2022 1:14:43 PM This report has been signed electronically. Number of Addenda: 0 Note Initiated On: 07/10/2022 11:52 AM [facility] 07/10/2022 11:5 2 AM TRUCK CRANE OPERATOR HELPER Gato Renteria MD GI PROCEDURE ORDERAB LES [facility] [place] [id number] documented in this encounter Visit Diagnoses Not on filedocumented in this encounter Administered Medications Inactive Administered Medications - up to 3 most recent administrations Medication Order MAR Action Action Date Dose Rate Site 0.9% NaCl infusion at 20 mL/hr, Intravenous, CONTINUOUS, Starting on Dana 07/10/22 at 1245, Until Dana 23 at 1449, Pre-procedure (GI) 0.9% NaCl injection 3 mL 3 mL, Intracatheter, PRE-PROCEDURE MULTIPLE, Starting on Dana 07/10/22 at 1247, Until Dana 23 at 1449, For Saline Lock flushes if one is inserted for Bronchoscopy/Endoscopy procedure., Pre-procedure (GI) documented in this encounter Active and Recently Administered Medications Times are shown in TRUCK CRANE OPERATOR HELPER. Scheduled Medication Order 07/08/2022 07/09/2022 07/10/2022 0.9% NaCl injection 3 mL 3 mL, Intracatheter, PRE-PROCEDURE MULTIPLE, Starting on Dana 07/10/22 at 1247, Until Dana 23 at 1449, For Saline Lock flushes if one is inserted for Bronchoscopy/Endoscopy procedure., Pre-procedure (GI) Continuous Medication Order 07/08/2022 07/09/2022 07/10/2022 0.9% NaCl infusion at 20 mL/hr, Intravenous, CONTINUOUS, Starting on Dana 07/10/22 at 1245, Until Dana 23 at 1449, Pre-procedure (GI) 1245 (Due) documented in this encounter Care Teams Rail Setter Relationship Specialty Start Date End Date Talia Bergeron, TAZ-PATENT SOLICITOR [address] [place], [place] [phone] PCP - General 02/15/15 documented as of this encounter
--- OUTSIDE RECORDS SUMMARY | 2024-05-31 23:28 | XMS_ITS | Encounter Summary ---
Author Organization [facility] Address [address] [place] [address] Care Team Providers Care Manager Laboratory Name Role Phone Talia Bergeron COLD WORKING SUPERVISOR-REVIEW NURSE Primary Care Provider [phone] Reason for Visit * Auth/Cert (Routine) Specialty Diagnoses / Procedures Referred By Ellis smiley Referred To Contact Procedures ESOPHAGOGASTRODUODENOSCOPY (EGD) DIAGNOSTIC Referral ID Status Reason Start Date Expiration Date Visits Re quested Visits Authorized [id number] 1 1 Encounter Details Date Type Department Care Team (Late st Contact Info) Description 07/10/2022 11:20 AM PUBLIC AREA SUPERVISOR - 07/10/2022 1:38 PM PUBLIC AREA SUPERVISOR Hospital Encounter [facility] - Endoscopy Services [address] [place] [address] Gato Renteria MD [facility] [place] [address] Surgery General Discharge Disposition: Home or Self Care Social History Tobacco Use Types Packs/Day Years Used Date Smoking Tobacco: Former Cigarettes Smokeless Tobacco: Never Sex and Gender Information Value Date Recorded Sex Assigned at Not on file Gender Identity Not on file Sexual Orientation Not on file documented as of this encounter Last Filed Vital Signs Vital Sign Reading Time Taken Comments Blood Pressure 116/79 07/10/2022 1:30 PM PUBLIC AREA SUPERVISOR Pulse 62 07/10/2022 1:30 PM PUBLIC AREA SUPERVISOR Temperature 36.8 ??C (98.2 ??F) 07/10/2022 1:10 PM CS T Respiratory Rate 18 07/10/2022 1:30 PM PUBLIC AREA SUPERVISOR Oxygen Saturation 94% 07/10/2022 1:30 PM PUBLIC AREA SUPERVISOR Inhaled Oxygen Concentration - - Weight 68 kg (150 lb) 07/10/2022 12:36 PM PUBLIC AREA SUPERVISOR Height 177.8 cm (5' 10 ) 07/10/2022 12:36 PM PUBLIC AREA SUPERVISOR Body Mass Index 21.52 07/10/2022 12:36 PM PUBLIC AREA SUPERVISOR documented in this encounter Medications at Time [...] Date ??? COPD (chronic obstructive pulmonary disease) (CMS/HCC) ??? Emphysema lung (CMS/HCC) ??? History of drug abuse (CMS/HCC) on methadaone for 12yrs ??? Osteoarthritis No [...] NaCl infusion Intravenous CONTINUOUS PRN Felix Broderick, TAZ-ADMINISTRATIVE LAW JUDGE New Bag at Physicial Exam: General appearance: alert, cooperative, no [...] Pain Procedure Planned: EGD Gato Renteria MD IC AREA SUPERVISOR documented in this encounter Plan of Treatment Scheduled Orders Name Type Priority Associated Diagnoses Orde r Schedule EGD GI Routine ONCE for 1 Occ urrences starting 07/10/2022 until 07/10/2022 documented as of this encounter Procedures Procedure Name Priority Date/Time Associated Diagnosis Comments HELICOBACTER PYLORI UREASE (STL) STAT 07/10/2022 1:04 PM PUBLIC AREA SUPERVISOR Diagnosis unknown [place] ED EGD FLEX TRANSORAL DX 07/10/2022 12:30 PM PUBLIC AREA SUPERVISOR EGD Routine 07/10/2022 11:52 AM PUBLIC AREA SUPERVISOR documented in this encounter Results * HELICOBACTER PYLORI UREASE (STL) (07/10/2022 1:04 PM PUBLIC AREA SUPERVISOR) Helicobacter pylori Urease Initial Negative Negative 07/11/2022 1:01 PM PUBLIC AREA SUPERVISOR [facility] Helicobacter pylori Urease Final Negative Negative 07/11/2022 1:01 PM PUBLIC AREA SUPERVISOR [facility] Comment:This is an appended report. These results have been appended to a previously preliminary verified report. Microbiology GASTRIC ANTRAL BIOPSY SPECIMEN / Unknown 07/10/2022 1:04 PM PUBLIC AREA SUPERVISOR 07/10/2022 4:04 PM PUBLIC AREA SUPERVISOR Gato Renteria MD LAB - MICROBIOLOGY O RDERABLES [facility] [address] [place] [id number] * EGD (07/10/2022 11:52 AM PUBLIC AREA SUPERVISOR) Report Endoscopy POC _ Patient Name: Saravanan Lanza ? Procedure Date: 07/10/2022 11:52 AM ? [...] Procedure Code(s): ? --- Professional --- ? 36156, Esophagogastrodu odenoscopy, flexible, transoral; with biopsy, ? single or multiple ? --- Technical --- ? 82885, Esophagogastrodu odenoscopy, flexible, transoral; with biopsy, ? [...] of stomach and duodenum CPT copyright 2019 [employer]. All rights reserved. The codes documented in this report are preliminary and upon community reinvestment act officer review may be revised to meet current compliance requirements. Dr. Gato Renteria MD Gato Renteria MD 07/10/2022 1:14:43 PM This report has been signed electronically. Number of Addenda: 0 Note Initiated On: 07/10/2022 11:52 AM [facility] 07/10/2022 11:5 2 AM PUBLIC AREA SUPERVISOR Gato Renteria MD GI PROCEDURE ORDERAB LES Performing Organization Address City/State/[facility] Co de Phone Number [facility] [place] [address] documented in this encounter Visit Diagnoses Diagnosis Diagnosis unknown Other unknown and unspecified cause of morbidity or mortality documented in this encounter Administered Medications Inactive Administered Medications - up to 3 most recent administrations Medication Order MAR Action Action Date Dose Rate Site 0.9% NaCl infusion at 20 mL/hr, Intravenous, CONTINUOUS, Starting on Dana 23 at 1245, Until Dana 23 at 1449, Pre-procedure (GI) 0.9% NaCl injection 3 mL 3 mL, Intracatheter, PRE-PROCEDURE MULTIPLE, Starting on Dana 07/10/22 at 1247, Until Dana 23 at 1449, For Saline Lock flushes if one is inserted for Bronchoscopy/Endoscopy procedure., Pre-procedure (GI) documented in this encounter Active and Recently Administered Medications Times are shown in PUBLIC AREA SUPERVISOR. Scheduled Medication Order 07/08/2022 07/09/2022 07/10/2022 0.9% NaCl injection 3 mL 3 mL, Intracatheter, PRE-PROCEDURE MULTIPLE, Starting on Daan 07/10/22 at 1247, Until Dana 07/10/22 at 1449, For Saline Lock flushes if one is inserted for Bronchoscopy/Endoscopy procedure., Pre-procedure (GI) Continuous Medication Order 07/08/2022 07/09/2022 07/10/2022 0.9% NaCl infusion at 20 mL/hr, Intravenous, CONTINUOUS, Starting on Dana 07/10/22 at 1245, Until Dana 07/10/22 at 1449, Pre-procedure (GI) 1245 (Due) documented in this encounter Care Teams Manager Laboratory Relationship Specialty Start Date End Date Talia Bergeron, COLD WORKING SUPERVISOR-REVIEW NURSE [address] [place], [place] [phone] PCP - General 02/15/15 documented as of this encounter
--- OUTSIDE RECORDS SUMMARY | 2024-05-31 23:28 | XMS_ITS | Encounter Summary ---
Author Organization [facility] Address [address] [place] [address] Care Team Providers Care Hotel Valet Attendant Name Role Phone Talia Bergeron NURSING HOME PHYSICIAN-MANAGEMENT ANALYST Primary Care Provider [phone] Encounter Details Date Type Department Care Team (Latest Contact Info) Description 02/03/2019 10:18 AM CDT - 02/03/2019 11:59 PM CDT Hospital Encounter [facility] Imaging Services - Radiology [address] [place] [address] Kwame Root MD Discharge Disposition: Home or Self Care Social History Tobacco Use Types Packs/Day Years Used Date Smoking Tobacco: Never Assessed Sex and Gender Information Value Date Recorded Sex Assigned at Not on file Gender Identity Not on file Sexual Orientation Not on file documented as of this encounter Plan of Treatment Not on file documented as of this encounter Procedures Procedure Name Priority Date/Time Associated Diagnosis Comments XR HAND BILAT 2VW Routine 02/03/2019 10: 32 AM CDT Seronegative rheumatoid arthritis of multiple sites (HCC) documented in this encounter Results * XR HAND BILAT 2VW (02/03/2019 10:32 AM CDT) Anatomical Region Laterality Modality Wrist / Hand, Upper Extremity Ra diographic Imaging 02/03/2019 2:27 PM CDT Impressions 02/03/2019 2:42 PM CDT Bony demineralization and degenerative changes as described. Edited by Abigail Fan on 02/03/2019 2:36 PM Reading Radiologist: Mario Marcum MD on 02/03/2019 at 2:42 PM Narrative 02/03/2019 2:42 PM CDT BILATERAL HANDS TWO VIEWS EACH INDICATION: Rheumatoid arthritis. FINDINGS: Two views of each hand without prior for comparison show degenerative changes of bilateral carpal first metacarpal joint spaces. There are degenerative changes involving the left scaphotrapezium region with similar degenerative changes on the right. There is bony demineralization. No acute fracture is demonstrated. No definite bony erosive changes are seen. Scattered cystic changes are seen in the carpal bones bilaterally. Procedure Note Mario Marcum MD - 02/03/2019 BILATERAL HANDS TWO VIEWS EACH INDICATION: Rheumatoid arthritis. FINDINGS: Two views of each hand without prior for comparison show degenerative changes of bilateral carpal first metacarpal joint spaces. There are degenerative changes involving the left scaphotrapezium region with similar degenerative changes on the right. There is bony demineralization. No acute fracture is demonstrated. No definite bony erosive changes are seen. Scattered cystic changes are seen in the carpal bones bilaterally. IMPRESSION Bony demineralization and degenerative changes as described. Edited by Abigail Fan on 02/03/2019 2:36 PM Reading Radiologist: Mario Marcum MD on 02/03/2019 at 2:42 PM Kwame Root MD DIAGNOSTIC IMAGING O RDERABLES documented in this encounter Visit Diagnoses Diagnosis Seronegative rheumatoid arthritis of multiple sites (HCC) documented in this encounter Care Teams Hotel Valet Attendant Relationship Specialty Start Date End Date Talia Bergeron, TAZ-MANAGEMENT ANALYST [address] [place], [place] [phone] PCP - General 02/15/15 documented as of this encounter
--- OUTSIDE RECORDS SUMMARY | 2024-05-31 23:28 | XMS_ITS | Referral Summary ---
Author Organization [facility] Address [address] [place] [address] Care Team Providers Care Community Development Officer Name Role Phone Talia Bergeron TILE LAYER HELPER-SWIFT TENDER Primary Care Provider [phone] Source Comments [facility],non-owned Affiliates and Associated Physician Practices is amultiple site organization consisting of ambulatory clinics and hospital sitesin [place], [place], [place] and [place]. This disclosure is being madepursuant to the Care Everywhere program and may not contain all information available regarding this patient. Last updated 18.[employer] [facility] Allergies No known active allergies Medications * [...] Comments Blood Pressure 116/79 07/10/2022 1:30 PM MIME ARTIST Pulse 62 07/10/2022 1:30 PM MIME ARTIST Temperature 36.8 ??C (98.2 ??F) 07/10/2022 1:10 PM CS T Respiratory Rate 18 07/10/2022 1:30 PM MIME ARTIST Oxygen Saturation 94% 07/10/2022 1:30 PM MIME ARTIST Inhaled Oxygen Concentration - - Weight 68 kg (150 lb) 07/10/2022 12:36 PM MIME ARTIST Height 177.8 cm (5' 10 ) 07/10/2022 12:36 PM MIME ARTIST Body Mass Index 21.52 07/10/2022 12:36 PM MIME ARTIST Plan of Treatment Not on file Care Teams Community Development Officer Relationship Specialty Start Date End Date Talia Bergeron, TILE LAYER HELPER-SWIFT TENDER [address] [place], [place] [phone] PCP - General 02/15/15
--- OUTSIDE RECORDS SUMMARY | 2024-05-31 23:28 | XMS_ITS | Clinical Summary ---
Author Organization [facility] Address [address] [place] [address] Phone Care Team Providers Care Reconciling Clerk Name Role Phone Talia Bergeron APRN, MARINE ELECTRONICS REPAIRER Primary Care Provider + Allergies No known active allergies Medications ALPRAZolam (XANAX) 1 MG Tablet Take 1 mg by mouth nightly. Active cetirizine (ZYRTEC) 10 MG Tablet Take 10 mg by mouth daily. Active METHADONE HCL PO Take 140 mg by mouth daily. Active Multiple Vitamin (MULTI-VITAMIN PO) Take by mouth daily. Active tamsulosin (FLOMAX) 0.4 MG Capsule Take 0.8 mg by mouth daily. Active tiZANidine (ZANAFLEX) 4 MG Tablet Take 4 mg by mouth every 6 hours as needed. Active albuterol (VENTOLIN HFA) 108 (90 BASE) MCG/ACT Aerosol Solution take 2 Puffs by inhalation every 4 hours as needed for Wheezing. Active amoxicillin-cla vulanate (AUGMENTIN) 875-125 MG Tablet 7 Active ASMANEX HFA 200 MCG/ACT Aerosol 7 Active Active Problems Problem Noted Date Diagnosed Date BPH loc w urin obs/LUTS 07/09/2016 Family History Medical History Relation Name Comments Alcohol Abuse Brother Emphysema Father Depression Sister Relation Name Status Comments Brother Father Sister Social History Tobacco Use Types Packs/Day Years Used Date Smoking Tobacco: Former Cigarettes Smokeless Tobacco: Never Tobacco Cessation:Counseling Given: No Alcohol Use Standard Drinks/Week Comments No 0 (1 standard drink = 0.6 oz pur e alcohol) Sexually Active Control Partners Comments Never Sex and Gender Information Value Date Recorded Sex Assigned at Not on file Legal Sex Male 7:41 PM CDT Gender Identity Not on file Sexual Orientation Not on file Last Filed Vital Signs Vital Sign Reading Time Taken Comments Blood Pressure 102/78 08/14/2016 9:11 AM CDT Pulse 94 08/14/2016 9:11 AM CDT Temperature 36.4 ??C (97.5 ??F) 08/14/2016 9:11 AM CD T Respiratory Rate 16 08/14/2016 9:11 AM CDT Oxygen Saturation 94% 08/14/2016 9:11 AM CDT Inhaled Oxygen Concentration - - Weight 76.2 kg (168 lb) 08/14/2016 9:11 AM CDT Height 177.8 cm (5' 10 ) 08/14/2016 9:11 AM CDT Body Mass Index 24.11 08/14/2016 9:11 AM CDT Plan of Treatment Health Maintenance Due Date Last Done Comments Colonoscopy 1999 Colorectal Cancer Screening 1999 Cologuard 2004 Immunochemical Fecal Occult Blood 2004 Pneumococcal Immunization (50+ years) (1 of 1 - PCV) 2004 Zoster Immunization (1 of 2) 2004 Hepatitis B Immunization (3 of 3 - 19+ 3-dose series) 02/18/2016 12/24/2015, 04/11/2015 Influenza Immunization (#1) 2024 02/09/2017 SARS-COV-2 Immunization ( - season) 2024 01/09/2022, 06/05/2021, 07/25/2020, Additional history exists Respiratory Syncytial Virus (RSV) Immunization (Adult) (1 - 1-dose 75+ series) 2029 PSA Discussion Completed 08/04/2016 DTaP/Tdap/Td Immunization Discontinued 06/04/2019 TdaP Immunization Completed 06/04/2019 Meningococcal Immunization (ACWY) Aged Out No longer eligible based on patient's age to complete this topic Rotavirus Immunization Aged Out No lo nger eligible based on patient's age to complete this topic Procedures Procedure Name Priority Date/Time Associated Diagnosis Comments PSA SCREEN Routine 08/04/2016 4:52 PM CDT Prostate cancer screening from Last 3 Months or Most Recently Relevant to Health Maintenance Results * PSA SCREEN (08/04/2016 4:52 PM CDT) PSA SCREEN, TOTAL 0.69 0.00 - 4.00 ng/mL 08/04/2016 5:48 PM CDT [facility] Blood specimen (specimen) Venipuncture / Unknown 08/04/2016 4:52 PM CDT 08/04/2016 4:53 PM CDT Narrative [facility] - 08/04/2016 5:48 PM CDT PSA NOTE: The PSA value should be used in conjunction with information available from clinical evaluation and other diagnostic procedures. Margot Gale MD CHEMISTRY ORDERABLES Final Result [facility] [address] [place] [address] from Last 3 Months or Most Recently Relevant to Health Maintenance Insurance MEDICARE [place]ICAID [place] Care Teams Reconciling Clerk Relationship Specialty Start Date End Date Talia Bergeron, WEATHER STRIP MECHANIC, MARINE ELECTRONICS REPAIRER [address] [address] PCP - General Advanced Practice Nurse 02/05/16
--- OUTSIDE RECORDS SUMMARY | 2024-05-31 23:28 | XMS_ITS | Patient Health Summary ---
Author Organization [facility] [employer] Address [address] [facility] [place] [address] Care Team Providers Care Canal Lock Tender Chief Operator Name Role Phone Talia Bergeron COMMERCIAL TITLE EXAMINER-METER READER CHIEF Primary Care Provider [phone] -[phone] Note from [facility],non-owned Affiliates and Associated Physician Practices is amultiple site organization consisting of ambulatory clinics and hospital sitesin [place], [place], [place] and [place]. This disclosure is being madepursuant to the Care Everywhere program and may not contain all information available regarding this patient. Last updated 18.[facility] [employer] Allergies No known active allergies Medications * Be aware that medications may not be up to date on this document. Alwaysverify current medications with the patient. * albuterol (Proventil;Ventolin) (2.5 MG/3ML) 0.083% nebulizer solution Inhale by mouth 4 times daily as needed for Shortness of Breath or Wheezing * budesonide-formoterol (Symbicort) 80-4.5 MCG/ACT inhaler Inhale 2 (two) puffs by mouth 2 times daily * oxyCODONE-acetaminophen (Percocet) 10-325 MG tablet Take 1 (one) tablet by mouth every 6 hours as needed for Pain * tamsulosin (Flomax) 0.4 MG capsule Take 1 (one) capsule by mouth once daily At the same time every day after a meal. * sertraline (Zoloft) 50 MG tablet Take 1.5 (one and one-half) tablets by mouth once daily * levothyroxine (Synthroid) 75 MCG tablet Take 1 (one) tablet by mouth daily before breakfast * methadone (Dolophine) 5 MG/5ML oral solution Take 120 mL by mouth once daily Social History Tobacco Use Types Packs/Day Years Used Date Smoking Tobacco: Former Cigarettes Smokeless Tobacco: Never Sex and Gender Information Value Date Recorded Sex Assigned at Not on file Gender Identity Not on file Sexual Orientation Not on file Last Filed Vital Signs Vital Sign Reading Time Taken Comments Blood Pressure 116/79 07/10/2022 1:30 PM DATA SYSTEMS MANAGER Pulse 62 07/10/2022 1:30 PM DATA SYSTEMS MANAGER Temperature 36.8 ??C (98.2 ??F) 07/10/2022 1:10 PM CS T Respiratory Rate 18 07/10/2022 1:30 PM DATA SYSTEMS MANAGER Oxygen Saturation 94% 07/10/2022 1:30 PM DATA SYSTEMS MANAGER Inhaled Oxygen Concentration - - Weight 68 kg (150 lb) 07/10/2022 12:36 PM DATA SYSTEMS MANAGER Height 177.8 cm (5' 10 ) 07/10/2022 12:36 PM DATA SYSTEMS MANAGER Body Mass Index 21.52 07/10/2022 12:36 PM DATA SYSTEMS MANAGER Procedures * HELICOBACTER PYLORI UREASE (STL)(Performed 07/10/2022) Performed for Diagnosis unknown * NM ED EGD FLEX TRANSORAL DX(Performed 07/10/2022) * EGD(Performed 07/10/2022) * XR HAND BILAT 2VW(Performed 02/03/2019) Performed for 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 These results have been appended to a previously preliminary verified report. Microbiology GASTRIC ANTRAL BIOPSY SPECIMEN / Unknown 07/10/2022 1:04 PM DATA SYSTEMS MANAGER 07/10/2022 4:04 PM DATA SYSTEMS MANAGER Gato Renteria MD LAB - MICROBIOLOGY O RDERABLES [facility] [address] [place] [address] * EGD (07/10/2022 11:52 AM DATA SYSTEMS MANAGER) Report Endoscopy POC _ Patient Name: Saravanan [...] Procedure Code(s): ? --- Professional --- ? 13398, Esophagogastrodu odenoscopy, flexible, transoral; with biopsy, ? single or multiple ? --- Technical --- ? 69812, Esophagogastrodu odenoscopy, flexible, transoral; with biopsy, ? [...] of stomach and duodenum CPT copyright 2019 [employer]. All rights reserved. The codes documented in this report are preliminary and upon campus coordinator review may be revised to meet current compliance requirements. Dr. Gato Renteria MD Gato Renteria MD 07/10/2022 1:14:43 PM This report has been signed electronically. Number of Addenda: 0 Note Initiated On: 07/10/2022 11:52 AM [facility] ENDOSCOPY 07/10/2022 11:5 2 AM DATA SYSTEMS MANAGER Gato Renteria MD GI PROCEDURE ORDERAB LES [facility] ENDOSCOPY EMILY Trevino [id number] * XR HAND BILAT 2VW (02/03/2019 10:32 [...] PM Kwame Root MD [facility]NOST[facility] Care Teams Canal Lock Tender Chief Operator Relationship Specialty Start Date End Date Talia Bergeron, COMMERCIAL TITLE EXAMINER-METER READER CHIEF [address] [place], [place] [id number] PCP - General 02/15/15
--- OUTSIDE RECORDS SUMMARY | 2024-05-31 23:28 | XMS_ITS | Encounter Summary ---
Author Organization [facility] Address [address] [facility] [place] [address] Care Team Providers Care Cmm Inspector Name Role Phone Talia Bergeron TUBE OPERATOR-ARC AND GAS WELDER Primary Care Provider [phone] [phone] Reason for Visit * Auth/Cert (Routine) Specialty Diagnoses / Procedures Referred By Ellis smiley Referred To Contact Procedures ESOPHAGOGASTRODUODENOSCOPY (EGD) DIAGNOSTIC Referral ID Status Reason Start Date Expiration Date Visits Re quested Visits Authorized [id number] 1 1 Encounter Details Date Type Department Care Team (Late st Contact Info) Description 07/10/2022 12:54 PM SATELLITE COMMUNICATIONS OPERATOR Anesthesia Event [facility] [id number] [place] [address] Juwan Corona MD [address] [place] [phone] Julián Massey APRN-CRNA [address] [place] [phone] Anesthesia Record Procedure Summary Procedure Name Responsible Anesthesiologist Anesthesia Start Time Anesthesia Stop Time ESOPHAGOGASTRODUODENOSCOPY ( EGD) DIAGNOSTIC Juwan Corona MD 07/10/22 1254 07/10/22 1304 Events Date Time Event Comment 07/10/2022 1231 1254 An Start 1254 Out OR Start Data 1254 PT Reassessment 1255 Timeout Anesthesia part icipated in timeout at the time documented in the record by nursing. 1304 Electnc Sig This record is electronically signed by the providers listed under staff. 1304 Out OR Stop Data 1304 An Stop Meds Name Total lidocaine 1% (PF) injection (50 mg/5mL) 100 mg 0.9% NaCl injection (Flush) 10 mL propofol (DIPRIVAN) injection 10mg/ml (E NDO USE) 10 mL 0.9% NaCl infusion 200 mL * Agents Name Exp. N2O O2 Flow - Auxiliary O2 * Blood No blood administrations on file. Lines, Drains, and Airways Type Details Placement Removal Peripheral IV Date: 07/10/22; Time : 1240; Orientation: Anterior, Distal, Right; Placed By: carmela HULL; Tolerance: Well 07/10/22 1240 by Anna Zamora RN 07/10/22 1328 by Zakia Osorio RN documented in this encounter Social History Tobacco Use Types Packs/Day Years Used Date Smoking Tobacco: Former Cigarettes Smokeless Tobacco: Never Sex and Gender Information Value Date Recorded Sex Assigned at Not on file Gender Identity Not on file Sexual Orientation Not on file documented as of this encounter Progress Notes * Felix Broderick, TAZ-LOG SCALER - 07/10/2022 1:05 PM CST ANESTHESIA POSTOP EVALUATION NOTE Procedure: ESOPHAGOGASTRODUODENOSCOPY (EGD) DIAGNOSTIC Saravanan Lanza is a 67 year old male Patient Vitals for the past 6 hrs: BP Temp Pulse Resp SpO2 Pain Rating Score #1 Pain Scale/Observation 07/10/22 1236 113/79 97.5 ??F (36.4 ??C) 67 16 -- 0 N 07/10/22 1254 -- -- -- -- 96 % -- -- 07/10/22 1256 130/82 -- -- -- -- -- -- 07/10/22 1259 -- -- -- -- 92 % -- -- 07/10/22 1301 103/74 -- -- -- -- -- -- 07/10/22 1304 -- -- -- -- 100 % -- -- Anesthesia Type: MAC * No Diagnosis Codes entered * Mental Status: awake and sufficiently recovered from acute administration of anesthesia to participate in the evaluation Neuro Status: No numbess, tingling or visual disturbances Respiratory Function: natural Cardiac Function: stable Postop Pain: no pain Postop Hydration: adequate Postop Nausea: none Assessment: no apparent anesthetic complications, patient tolerated procedure well and no evidence of recall Patient Disposition: Release from Anesthesia Care NOTABLE EVENTS: No notable events documented. LLITE COMMUNICATIONS OPERATOR * Felix Broderick, FRAN - 07/10/2022 1:04 PM CST ANESTHESIA POSTOP EVALUATION NOTE Procedure: ESOPHAGOGASTRODUODENOSCOPY (EGD) DIAGNOSTIC Saravanan Lanza is a 67 year old male Patient Vitals for the past 6 hrs: BP Temp Pulse Resp SpO2 Pain Rating Score #1 Pain Scale/Observation 07/10/22 1236 113/79 97.5 ??F (36.4 ??C) 67 16 -- 0 N 07/10/22 1254 -- -- -- -- 96 % -- -- 07/10/22 1256 130/82 -- -- -- -- -- -- 07/10/22 1259 -- -- -- -- 92 % -- -- 07/10/22 1301 103/74 -- -- -- -- -- -- 07/10/22 1304 -- -- -- -- 100 % -- -- Anesthesia Type: MAC * No Diagnosis Codes entered * Mental Status: awake and sufficiently recovered from acute administration of anesthesia to participate in the evaluation Neuro Status: No numbess, tingling or visual disturbances Respiratory Function: natural Cardiac Function: stable Postop Pain: no pain Postop Hydration: adequate Postop Nausea: none Assessment: no apparent anesthetic complications, patient tolerated procedure well and no evidence of recall Patient Disposition: Release from Anesthesia Care NOTABLE EVENTS: No notable events documented. LLITE COMMUNICATIONS OPERATOR * Felix Broderick, JUANYLOG SCALER - 07/10/2022 12:30 PM CST ANESTHESIA PREOPERATIVE EVALUATION NOTE Procedure: ESOPHAGOGASTRODUODENOSCOPY (EGD) DIAGNOSTIC Vitals: No data found. LMP: No LMP for male patient. OB Status: unknown ANESTHESIA PRE-EVALUATION NOTE The patient is a current non-smoker. Physical Exam: Orientation X3 Airway/Mallampati Score: II Mouth Opening Distance: 3 fingerwidths Neck ROM: full TM Distance: < 3 FB Teeth: normal Heart: regular rate rhythm Lungs: normal Abdomen Exam: normal Review of Systems: Poor Exercise Tolerance: Yes Diagnostic Tests: Lab(s) reviewed: Yes. ANESTHESIA PLAN ASA Score: 2 NPO Status: No liquids within 2 hours Anesthesia Plan: MAC Planned Induction: intravenous Planned Postop Destination: PACU Anesthetic plan was discussed with: patient Anesthetic Plan discussion was: Consented The patient's procedural Anesthetic Plan was discussed with the LOG SCALER and attending. BMI, Height, Weight Tobacco History There is no height or weight on file to calculate BMI. Social History Tobacco Use Smoking Status Not on file Smokeless Tobacco Not on file Alcohol History Drug History Social History Substance and Sexual Activity Alcohol Use Not on file Social History Substance and Sexual Activity Drug Use Not on file Outpatient Medications: Inpatient Medications: No outpatient medications have been marked as taking for the 07/10/22 encounter (Hospital Encounter). Current Facility-Administered Medications Medication Dose Last Admin ??? 0.9% NaCl IV Allergies: No Known Allergies Relevant Problems No relevant active problems Problem List: There are no problems to display for this patient. Medical History: No past medical history on file. Surgical History: No past surgical history on file. SERVICE MEMBER Status: No LMP for male patient. unknown OB History No obstetric history on file. Covid Vaccine: Lab Results: No results found for requested labs within last 120 days. No results found for requested labs within last 120 days. LLITE COMMUNICATIONS OPERATOR documented in this encounter Miscellaneous Notes * Addendum Note - Julián Massey APRN-CRNA - 07/10/2022 1:12 PM CST Addendum created 07/10/22 1312 by Julián Massey APRN-CRNA Intraprocedure Staff edited LLITE COMMUNICATIONS OPERATOR * Anesthesia Transfer of Care - Felix Broderick APRN-CRNA - 07/10/2022 1:04 PM CST ANESTHESIA TRANSFER OF CARE NOTE Today's Date: 07/10/2022 Date of : 1955 Patient: Saravanan Lanza Procedure(s): ESOPHAGOGASTRODUODENOSCOPY (EGD) DIAGNOSTIC Surgeon(s): Primary: Gato Renteria MD Preop Diagnosis: * No Diagnosis Codes entered * Pre-op Meds (From admission, onward) Start Stop Status Route Frequency Ordered 07/10/22 1245 0.9% NaCl infusion -- Dispensed IV CONTINUOUS 07/10/22 1214 07/10/22 1233 0.9% NaCl infusion -- Sent IV CONTINUOUS PRN 07/10/22 1233 07/10/22 1255 0.9% NaCl injection -- Sent IV PRN 07/10/22 1258 07/10/22 1247 0.9% NaCl injection 3 mL -- Dispensed IK PRE-PROCEDURE MULTIPLE 07/10/22 1247 07/10/22 1255 lidocaine PF (Xylocaine MPF) 1 % injection -- Sent IV PRN 07/10/22 1258 07/10/22 1255 propofol (Diprivan) injection -- Sent IV CONTINUOUS PRN 07/10/22 1258 * No Diagnosis Codes entered * . No Known Allergies Vitals: Patient Vitals for the past 3 hrs: BP Temp Pulse Resp SpO2 Pain Rating Score #1 07/10/22 1304 -- -- -- -- 100 % -- 07/10/22 1301 103/74 -- -- -- -- -- 07/10/22 1259 -- -- -- -- 92 % -- 07/10/22 1256 130/82 -- -- -- -- -- 07/10/22 1254 -- -- -- -- 96 % -- 07/10/22 1236 113/79 97.5 ??F (36.4 ??C) 67 16 -- 0 Lines, Drains, and Airways Type Details Placement Removal Peripheral IV Date: 07/10/22; Time: 124; Orientation: Anterior, Distal, Right; Location: Forearm; Placed By: carmela HULL; Gauge: 22 Gauge ; Locals: None; Tolerance: Well 07/10/22 1240 by Anna Zamora RN Intraprocedure I/O Totals Intake propofol (DIPRIVAN) injection 10mg/ml (ENDO USE) 10.00 mL 0.9% NaCl infusion 200.00 mL Total Intake 210 mL Patient Transfer Location: Endo Recovery Transport Airway: spontaneous respirations Complications: None Handoff Given? Yes Checklist or Protocol - The to handoff elements that must be included in the transfer of care checklist include: 1. Identification of patient. 2. Identification of responsible practitioner (PACU nurse or advanced practitioner). 3. Discussion of pertinent medical history. 4. Discussion of the surgical/procedure course (procedure, reason for surgery, procedure performed). 5. Intraoperative anesthetic management and issue/concerns. 6. Expectations/Plans for the early post-procedure period. 7. Opportunity for questions and acknowledgement of understanding of report from the receiving PACUteam. FRAN Mayen LLITE COMMUNICATIONS OPERATOR documented in this encounter Plan of Treatment Not on file documented as of this encounter Visit Diagnoses Not on filedocumented in this encounter Administered Medications Inactive Administered Medications - up to 3 most recent administrations Medication Order MAR Action Action Date Dose Rate Site 0.9% NaCl infusion Intravenous, CONTINUOUS PRN, Starting on Dana 07/10/22 at 1233, Until Dana 07/10/22 at 1304, Anesthesia Intra-op $ New Bag/Syringe 07/10/2022 12:33 PM SATELLITE COMMUNICATIONS OPERATOR 0.9% NaCl injection Intravenous, PRN, Starting on Dana 07/10/22 at 1255, Until Dana 07/10/22 at 1304, Anesthesia Intra-op $ Given 07/10/2022 12:55 PM SATELLITE COMMUNICATIONS OPERATOR 10 mL lidocaine PF (Xylocaine MPF) 1 % injection Intravenous, PRN, Starting on Dana 2 at 1255, Until Dana 2 at 1304, Anesthesia Intra-op $ Given 07/10/2022 12:55 PM SATELLITE COMMUNICATIONS OPERATOR 100 mg propofol (Diprivan) injection Intravenous, CONTINUOUS PRN, Starting on Dana 07/10/22 at 1255, Until Dana 2 at 1304, Anesthesia Intra-op $ New Bag/Syringe 07/10/2022 12:55 PM SATELLITE COMMUNICATIONS OPERATOR documented in this encounter Care Teams Cmm Inspector Relationship Specialty Start Date End Date Talia Bergeron APRN-ARC AND GAS WELDER [address] [place], [place] [id number] PCP - General 02/15/15 documented as of this encounter
--- OUTSIDE RECORDS SUMMARY | 2024-05-31 23:29 | XMS_ITS | Encounter Summary ---
Author Organization [facility] [employer] [facility] Address [address] [place] [phone] Phone Care Team Providers Care Sulfide Head Operator Name Role Phone Manuel Browning DO Primary Care Provider +1- [phone] Encounter Details Date Type Department Care Team (Late st Contact Info) Description 11/22/2020 Documentation Only [place] [employer] [facility] [address] [address] Kimberly Kaplan [facility] [address] [facility] [address] [place] [address] Social History Tobacco Use Types Packs/Day Years Used Date Smoking Tobacco: Never Assessed Sex and Gender Information Value Date Recorded Sex Assigned at Not on file Legal Sex Male 2:52 PM EDT Gender Identity Not on file Sexual Orientation Not on file documented as of this encounter Plan of Treatment Not on file documented as of this encounter Visit Diagnoses Not on filedocumented in this encounter Care Teams Sulfide Head Operator Relationship Specialty Start Date End Date Manuel Browning DO [address] [place] [address] PCP - General Family Medicine 11/20/20 documented as of this encounter
--- OUTSIDE RECORDS SUMMARY | 2024-05-31 23:29 | XMS_ITS | Encounter Summary ---
Author Organization [facility] [employer] [facility] Address [address] [place] [phone] Phone Care Team Providers Care Nurse Special Name Role Phone Manuel Browning DO Primary Care Provider +1- [phone] Encounter Details Date Type Department Care Team (Late st Contact Info) Description 12/06/2020 Documentation Only [place] [employer] [facility] [address] [address] Allen Last DO [address] [place] [address] [address] [place] [address] Social History Tobacco Use Types [...] on filedocumented in this encounter Care Teams Nurse Special Relationship Specialty Start Date End Date Manuel Browning DO [address] [place] [address] PCP - General Family Medicine 11/20/20 documented as of this encounter
--- OUTSIDE RECORDS SUMMARY | 2024-05-31 23:29 | XMS_ITS | Clinical Summary ---
Author Organization [facility] Address [address] [address] Phone Care Team Providers Care Fishing Hand Name Role Phone VeenaManule zhong Primary Care Provider +1- [phone] Social History Tobacco Use Types Packs/Day Years Used Date Smoking Tobacco: Never Assessed Sex and Gender Information Value Date Recorded Sex Assigned at Not on file Legal Sex Male 2:52 PM EDT Gender Identity Not on file Sexual Orientation Not on file Last Filed Vital Signs Vital Sign Reading Time Taken Comments Blood Pressure 120/70 11/21/2020 2:12 PM CDT Pulse 68 11/21/2020 2:12 PM CDT Temperature 36.3 ??C (97.3 ??F) 11/21/2020 2:12 PM CD T Respiratory Rate 18 11/21/2020 2:12 PM CDT Oxygen Saturation 92% 11/21/2020 2:12 PM CDT Inhaled Oxygen Concentration - - Weight 67.4 kg (148 lb 9.6 oz) 11/21/2020 2:12 P M CDT Height 177.8 cm (5' 10 ) 11/21/2020 2:12 PM CDT Body Mass Index 21.32 11/21/2020 2:12 PM CDT Plan of Treatment Health Maintenance Due Date Last Done Comments Pneumococcal Vaccine: 65+ Years (1 of 2 - PCV) 961 Colorectal Cancer Screening: Annual FOBT 2003 Colorectal Cancer Screening: Colonoscopy 2003 Colorectal Cancer Screening: Sigmoidoscopy 2003 Hepatitis B Vaccine (1 of 3 - Risk 3-dose series) 05/26 Influenza Vaccine (#1) 2024 Insurance MEDICAID [place] [facility] ([id number]) Care Teams Fishing Hand Relationship Specialty Start Date End Date Manuel Browning DO [address] [facility] [address] [place] [address] PCP - General Family Medicine 11/20/20
--- OUTSIDE RECORDS SUMMARY | 2024-05-31 23:30 | XMS_ITS | Referral Summary ---
Author Organization [facility] Address [address] [place] [address] Care Team Providers Care Packing Tractor Machine Operator Name Role Phone Mor Rodriguez MD Primary Care Provider [phone] Allergies Active Allergy Reactions Criticality Noted Date Comments Naloxone Other (See comments) Low 11/23/2017 Patient indicating he cannot have narcan no matter what (methodone prescription) Medications albuterol HFA (PROVENTIL HFA,VENTOLIN HFA) 90 mcg/actuation inhaler Inhale 2 puffs every 4 (four) hours as needed Active tamsulosin (FLOMAX) 0.4 mg capsule,extende d release 24hr Take 0.4 mg by mouth 2 (two) times a day Active BREO ELLIPTA 200-25 mcg/dose diskus inhaler Inhale 1 puff daily 8 Active omeprazole (PriLOSEC) 20 mg capsule Take 20 mg by mouth daily. Active clonazePAM (KlonoPIN) 0.5 mg tablet Take 0.5 mg by mouth 3 (three) times a day as needed for anxiety Active sertraline (ZOLOFT) 50 mg tablet Take 100 mg by mouth daily Active baclofen (LIORESAL) 10 mg tablet Take 1 tablet (10 mg total) by mouth 3 (three) times a day for 15 days 45 tablet 9 Active methadone (DOLOPHINE) 10 mg tablet Take 120 mg by mouth daily Active potassium chloride ER (KLOR-CON) 10 mEq CR tablet Take 10 mEq by mouth daily Active mirtazapine (REMERON) 15 mg tablet Take 15 mg by mouth nightly Active levothyroxine (SYNTHROID) 75 mcg tablet Take 1 tablet (75 mcg total) by mouth loan specialist before breakfast 30 tablet 2 0 Active oxyCODONE-aceta minophen (PERCOCET) 10-325 mg per tablet Take 1 tablet by mouth 2 (two) times a day 1 Active tobramycin (MARIANGEL 300) 300 mg/5 mL nebulizer solution Take 5 mL by nebulization daily 1 Active Incruse Ellipta 62.5 mcg/actuation blister with device Inhale 1 puff daily 1 Active Active Problems Problem Noted Date Diagnosed Date Sepsis 01/09/2020 Pneumonia 01/09/2020 COPD without exacerbation 01/09/2020 Hyponatremia 01/09/2020 Diarrhea 01/09/2020 Altered mental status 01/09/2020 Cirrhosis of liver without ascites (CMS/HCC) Avulsion of skin of right thumb without complica tion 06/04/2019 Immunization, tetanus-diphtheria 06/04/2019 Closed fracture of right inferior pubic ramus Closed fracture of right superior pubic ramus Unspecified urinary incontinence 04/14/2017 Calculus of urinary bladder 01/27/2017 Overview (09/04/2017): Description: s/p Urolift and bladder stone lithotripsy Legionnaire's disease (CMS/HCC) Immunizations Name Administration Dates Next Due Tdap 06/04/2019 Social History Tobacco Use Types Packs/Day Years Used Date Smoking Tobacco: Former Smokeless Tobacco: Current Comments:e cig Alcohol Use Standard Drinks/Week Comments Not Currently 0 (1 standard drink = 0.6 oz pur e alcohol) AUDIT-C Answer Date Recorded Q1: How often do you have a drink containing alc ohol? Monthly or less 04/17/2021 Q2: How many drinks containi ng alcohol do you have on a typical day when you are drinking? 1 or 2 04/17/2021 Q3: How often do you have si x or more drinks on one occasion? Never 04/17/2021 PHQ-2 Answer Date Recorded PHQ-2 Total Score (If total score is 3 or more points, staff should administer the PHQ-9) 0 01/15/2020 Sex and Gender Information Value Date Recorded Sex Assigned at Not on file Legal Sex Male 11:14 AM APPLICATIONS COORDINATOR Gender Identity Not on file Sexual Orientation Not on file Last Filed Vital Signs Vital Sign Reading Time Taken Comments Blood Pressure 158/91 11/04/2021 6:20 PM CDT Pulse 80 11/04/2021 6:20 PM CDT Temperature 36.8 ??C (98.3 ??F) 11/04/2021 2:33 PM CD T Respiratory Rate 12 11/04/2021 6:20 PM CDT Oxygen Saturation 94% 11/04/2021 6:20 PM CDT Inhaled Oxygen Concentration - - Weight 63.5 kg (140 lb) 11/04/2021 2:33 PM CDT Height 179.1 cm (5' 10.5 ) 04/17/2021 10:[address] Body Mass Index 19.8 04/17/2021 10:58 AM APPLICATIONS COORDINATOR Plan of Treatment Not on file Procedures Procedure Name Priority Date/Time Associated Diagnosis Comments PSA DIAGNOSTIC Routine 05/22/2020 8:[address] ABDOMEN PELVIS WO CONTRAST Schedule Routine, Read Routine (OP Routine) 05/22/2020 7:51 AM APPLICATIONS COORDINATOR Abnormal weight loss COLONOSCOPY 11/24/2017 9:42 AM CDT from Last 3 Months or Most Recently Relevant to Health Maintenance Results * PSA diagnostic (05/22/2020 8:59 AM APPLICATIONS COORDINATOR) PSA-Total 0.50 <=5.40 ng/mL [facility] ([place]) Comment: Interpretive Data ?AGE ? SEX ?REFERENCE INTERVAL 0 minutes-150 years ?Female ?None 0 minutes-49 years ? Male ?None ? 50-59 years ? Male ?0-3.90 ? 60-69 years ? Male ?0-5.40 ? 70-79 years ? Male ?0-6.20 ? 80-150 years ?Male ?0-6.20 Current interpretive data last revised 2018. Testing performed by: [facility], [address] [place] [address], [place]., [address] Blood specimen (specimen) 05/22/2020 8:59 AM APPLICATIONS COORDINATOR 05/22/2020 2:20 PM APPLICATIONS COORDINATOR us Mitchell Gutierrez DO LAB BLOOD ORDERABLES Cecilia l Result [facility] ([place]) [address] [facility] Department [place] [address] * CT Abdomen Pelvis WO Contrast (05/22/2020 7:51 AM APPLICATIONS COORDINATOR) Anatomical Region Laterality Modality Body N/A Computed Tomogra phy 05/22/2020 8:05 AM APPLICATIONS COORDINATOR Impressions 05/22/2020 8:28 AM APPLICATIONS COORDINATOR 1. ??Large, debris-filled hiatal hernia present. ??Scattered tree-in-bud groundglass nodules in the right middle lobe and right lower lobe in a background of pulmonary emphysema may represent mild aspiration change. ??Clinical correlation is recommended. 2. ??Stable mild enlargement of the prostate gland with nodular protrusion of transitional zone to the bladder base near the urinary bladder outlet. ??The urinary bladder is thickened with bladder diverticula again seen, one of which contains a stone. ??Mildly patulous distal left ureter without left sided hydronephrosis may be secondary to chronic urinary bladder outlet obstruction. 3. ??6 mm stone in the distal right ureter near the ureterovesicular junction, without associated right-sided hydronephrosis. 4. ??Nodular surface of the liver with borderline splenomegaly, suggestive of cirrhosis with portal hypertension. ??Clinical correlation is recommended. 5. ??Markedly distended common bile duct to the level of the major papilla, measuring 1.7 cm. ??Recommend further evaluation by contrast enhanced MRI/MRCP, which can also better evaluate the pancreas, which is not well evaluated on this noncontrast-enhanced study. 6. ??Osteopenia with multilevel mild to moderate compression deformities from T12-L3, likely chronic/degenerative in nature. Electronically signed by: Felix Galvez M.D. Narrative 05/22/2020 8:28 AM APPLICATIONS COORDINATOR EXAMINATION: CT ABDOMEN PELVIS WO CONTRAST ORDERING HEALTHCARE PROVIDER: MITCHELL GUTIERREZ HISTORY: ABNORMAL WEIGHT LOSS. TECHNIQUE: CT abdomen and pelvis without intravenous and without oral contrast. ??Reconstructed coronal and sagittal MPR images reviewed. All images stored on PACS. ??Automated exposure control was used as a dose optimization technique for this examination. COMPARISON: CT pelvis on 06/15/2017 FINDINGS: LOWER CHEST: Emphysematous changes are noted in the lung bases. There are a few tiny tree-in-bud groundglass opacities in the right middle lobe and right lower lobe. ??No confluent consolidation. The heart is normal in size without pericardial effusion. ??Three-vessel coronary atherosclerotic disease is present. ??A large hiatal hernia is noted, filled with debris. The sensitivity for detection of visceral lesions is diminished without the use of intravenous contrast. LIVER: Normal size with surface nodularity. ??The common duct is markedly distended to the level of the major papilla measuring 17 mm maximally. GALLBLADDER: No radiodense gallstones, gallbladder distention or wall thickening. SPLEEN: Borderline enlarged measuring 13.3 cm in AP dimension. ??No focal lesions. PANCREAS: Not well evaluated on this noncontrast enhanced study. ??No peripancreatic inflammation. ??Pancreatic duct is difficult to assess due to mild fatty displacement of the pancreas. ADRENALS: No discrete nodules. KIDNEYS/URINARY TRACT: A 6 mm stone is seen in the distal right ureter just proximal to the right ureterovesicular junction. ??There is no upstream hydronephrosis in the right kidney. ??The left distal ureter is mildly patulous, however, there is no left-sided hydronephrosis. ??No stones are seen in either kidney. ??The urinary bladder is diffusely thick-walled with multiple diverticula, one of which contains a stone. The prostate gland is mildly enlarged with nodular protrusion into the urinary bladder base near the bladder outlet. ??This appearance is unchanged from the prior study. GI: No bowel obstruction. Normal appendix. Small to moderate amount of stool seen throughout the colon. PERITONEUM: No free intraperitoneal air or ascites. VASCULATURE: Significant atherosclerotic calcification of the aortoiliac vessels without aneurysmal dilatation. MUSCULOSKELETAL: Diffuse osteopenia with spinal degenerative changes present with multilevel mild to moderate compression deformities involving T12-L3. ??Chronic fracture deformities of the right superior and inferior pubic rami are present. ??No suspicious osseous lesions or acute fractures. OTHER: A small fat-containing umbilical hernia is unchanged. Procedure Note Felix Galvez MD - 05/22/2020 EXAMINATION: CT ABDOMEN PELVIS WO CONTRAST ORDERING HEALTHCARE PROVIDER: MITCHELL GUTIERREZ HISTORY: ABNORMAL WEIGHT LOSS. TECHNIQUE: CT abdomen and pelvis without intravenous and without oral contrast. Reconstructed coronal and sagittal MPR images reviewed. All images stored on PACS. Automated exposure control was used as a dose optimization technique for this examination. COMPARISON: CT pelvis on 06/15/2017 FINDINGS: LOWER CHEST: Emphysematous changes are noted in the lung bases. There are a few tiny tree-in-bud groundglass opacities in the right middle lobe and right lower lobe. No confluent consolidation. The heart is normal in size without pericardial effusion. Three-vessel coronary atherosclerotic disease is present. A large hiatal hernia is noted, filled with debris. The sensitivity for detection of visceral lesions is diminished without the use of intravenous contrast. LIVER: Normal size with surface nodularity. The common duct is markedly distended to the level of the major papilla measuring 17 mm maximally. GALLBLADDER: No radiodense gallstones, gallbladder distention or wall thickening. SPLEEN: Borderline enlarged measuring 13.3 cm in AP dimension. No focal lesions. PANCREAS: Not well evaluated on this noncontrast enhanced study. No peripancreatic inflammation. Pancreatic duct is difficult to assess due to mild fatty displacement of the pancreas. ADRENALS: No discrete nodules. KIDNEYS/URINARY TRACT: A 6 mm stone is seen in the distal right ureter just proximal to the right ureterovesicular junction. There is no upstream hydronephrosis in the right kidney. The left distal ureter is mildly patulous, however, there is no left-sided hydronephrosis. No stones are seen in either kidney. The urinary bladder is diffusely thick-walled with multiple diverticula, one of which contains a stone. The prostate gland is mildly enlarged with nodular protrusion into the urinary bladder base near the bladder outlet. This appearance is unchanged from the prior study. GI: No bowel obstruction. Normal appendix. Small to moderate amount of stool seen throughout the colon. PERITONEUM: No free intraperitoneal air or ascites. VASCULATURE: Significant atherosclerotic calcification of the aortoiliac vessels without aneurysmal dilatation. MUSCULOSKELETAL: Diffuse osteopenia with spinal degenerative changes present with multilevel mild to moderate compression deformities involving T12-L3. Chronic fracture deformities of the right superior and inferior pubic rami are present. No suspicious osseous lesions or acute fractures. OTHER: A small fat-containing umbilical hernia is unchanged. IMPRESSION: 1. Large, debris-filled hiatal hernia present. Scattered tree-in-bud groundglass nodules in the right middle lobe and right lower lobe in a background of pulmonary emphysema may represent mild aspiration change. Clinical correlation is recommended. 2. Stable mild enlargement of the prostate gland with nodular protrusion of transitional zone to the bladder base near the urinary bladder outlet. The urinary bladder is thickened with bladder diverticula again seen, one of which contains a stone. Mildly patulous distal left ureter without left sided hydronephrosis may be secondary to chronic urinary bladder outlet obstruction. 3. 6 mm stone in the distal right ureter near the ureterovesicular junction, without associated right-sided hydronephrosis. 4. Nodular surface of the liver with borderline splenomegaly, suggestive of cirrhosis with portal hypertension. Clinical correlation is recommended. 5. Markedly distended common bile duct to the level of the major papilla, measuring 1.7 cm. Recommend further evaluation by contrast enhanced MRI/MRCP, which can also better evaluate the pancreas, which is not well evaluated on this noncontrast-enhanced study. 6. Osteopenia with multilevel mild to moderate compression deformities from T12-L3, likely chronic/degenerative in nature. Electronically signed by: Felix Galvez M.D. Mitchell Gutierrez DO IMG CT PROCEDURES Final R esult * COLONOSCOPY (11/24/2017 9:42 AM CDT) Anatomical Region Laterality Modality Other Narrative Procedure Note Dewayne Alaniz MD - 11/24/2017 9:42 AM CDT [facility] Patient Name: Christal Lanza Procedure Date: 11/24/2017 9:42 AM Date of : 1955 Admit Type: Outpatient Age: 62 Gender: Male Attending MD: Dewayne Alaniz MD Room: [facility] ENDOSCOPY CAPSULE Note Status: Finalized Patient Profile: 62 WM with unexplained weight loss, and abnormal stool/diarrhea, no family h/o colon cancer. Procedure: Colonoscopy Indications: Last colonoscopy: November 2008, Clinically significant diarrhea of unexplained origin, Weight loss Referring MD: Geovanni Saunders, TRAUMA REGISTRAR Providers: Dewayne Alaniz MD Impression: - The entire examined colon is normal. Biopsied. - Internal hemorrhoids. Recommendation: - Await pathology results. - Return to my office at appointment to bescheduled. - Will need CT abdomen and pelvis with contrast to complete evaluation. - Continue present medications. Medicines: Monitored Anesthesia Care Complications: No immediate complications. Estimated Blood Loss: Estimated blood loss: none. Procedure: Pre-Anesthesia Assessment: - Prior to the procedure, a History and Physical was performed, and patient medications and allergieswere reviewed. The patient's tolerance of previous anesthesia was also reviewed. The risks and benefitsof the procedure and the sedation options and riskswere discussed with the patient. All questions were answered, and informed consent was obtained. Prior Anticoagulants: The patient has taken no previous anticoagulant or antiplatelet agents. ASA Grade Assessment: II - A patient with mild systemicdisease. After reviewing the risks and benefits, the patientwas deemed in satisfactory condition to undergo the procedure. The benefits, risks and alternatives of theprocedure and sedation were discussed and informed consent was obtained. All questions were answered. Please referto the signed informed consent document in the medical record. The scope was passed under direct vision.The Pediatric Colonoscope PCF-H190L [id number] was introduced through the anus and advanced to the the cecum, identified by appendiceal orifice andileocecal valve. The colonoscopy was performed without difficulty. The patient tolerated the procedurewell. The quality of the bowel preparation was good. Findings: The perianal and digital rectal examinations were normal. The colon (entire examined portion) appeared normal. Biopsies weretaken with a cold forceps for histology. No polyps and no mass lesions. Internal hemorrhoids were found during retroflexion. The hemorrhoids were small. Electronically signed by Dewayne Alaniz M.D. Dewayne Alaniz MD 11/24/2017 10:37:43 AM Number of Addenda: 0 Note Initiated On: 11/24/2017 9:42 AM Procedure Code(s): --- Professional --- 38529, Colonoscopy, flexible; with biopsy, single or multiple Diagnosis Code(s): --- Professional --- K64.8, Other hemorrhoids R63.4, Abnormal weight loss R19.7, Diarrhea, unspecified CPT copyright 2017 [employer]. All rights reserved. The codes documented in this report are preliminary and upon medical record coder reviewmay be revised to meet current compliance requirements. Recognized by the [employer] for promoting quality in endoscopy Dewayne Alaniz MD ENDOSCOPY PROCEDURES Final Result from Last 3 Months or Most Recently Relevant to Health Maintenance Insurance MEDICARE IDPA HU[employer] CHOICE MEDICARE PPO AETNA MEDICARE GOLD IDPA AET MEDICARE [facility] IDPA AET MEDICARE GOLD Advance Directives For more information, please contact: [phone] * Full Code (Latest Code Status on File) Date Activated Date Inactivated Comments 04/17/2021 11:12 AM 04/17/2021 5:26 PM * Full Code Date Activated Date Inactivated Comments 01/09/2020 5:16 PM 01/17/2020 6:36 PM * Full Code Date Activated Date Inactivated Comments 11/24/2017 8:23 AM 11/24/2017 1:42 PM Care Teams Packing Tractor Machine Operator Relationship Specialty Start Date End Date Mor Rodriguez MD PCP - General Family Practice 04/17/21
--- OUTSIDE RECORDS SUMMARY | 2024-05-31 23:30 | XMS_ITS | Encounter Summary ---
Author Organization [facility] , [facility] Address [address] [place] [phone] Phone Care Team Providers Care Electric Meter Repairer Helper Name Role Phone Manuel Browning DO Primary Care Provider [phone]- [phone] Reason for Referral * Consultation (Routine) - Closed Specialty Diagnoses / Procedures Referred By Contcharly t Referred To Contact Nephrology Diagnoses Other specified abnormal finding of blood chemistry Manuel Browning DO [address] [place] [address] Phone: tel: fax: Allen Last DO Phone: tel: fax: Referral ID Status Reason Start Date Expiration Date V isits Requested Visits Authorized [id number] Closed Consult and Treat 11/20/2020 11/20/2021 6 6 Encounter Details Date Type Department Care Team (Late st Contact Info) Description 11/20/2020 Transcribe Orders [facility], [facility] [address] [place] [id number] Mj Warren MD Other specified abnormal finding of blood chemistry (Primary Dx) Social History Tobacco Use Types Packs/Day Years Used Date Smoking Tobacco: Never Assessed Sex and Gender Information Value Date Recorded Sex Assigned at Not on file Legal Sex Male 2:52 PM EDT Gender Identity Not on file Sexual Orientation Not on file documented as of this encounter Plan of Treatment Scheduled Referrals Name Type Priority Associated Diagnoses Order Schedule Ambulatory referral to Nephrology Outpatient Referral Routine Other specified abnormal finding of blood chemistry Expected: 11/20/2020, Expires: 12/20/2021 documented as of this encounter Visit Diagnoses Diagnosis Other specified abnormal finding of blood chemistry- Primary documented in this encounter Care Teams Electric Meter Repairer Helper Relationship Specialty Start Date End Date Manuel Browning DO [address] [facility] [address] [place] [address] PCP - General Family Medicine 11/20/20 documented as of this encounter
--- OUTSIDE RECORDS SUMMARY | 2024-05-31 23:30 | XMS_ITS | Encounter Summary ---
Author Organization [facility] Healthcare Address [address] [place] [address] Care Team Providers Care Shore Hand Dredge Or Barge Name Role Phone Mor Rodriguez MD Primary Care Provider [phone] Reason for Visit * Auth/Cert Specialty Diagnoses / Procedures Referred By Contac t Referred To Contact Diagnoses Other specified diseases of biliary tract Other specified diseases of biliary tract [K83.8] Procedures EUS Referral ID Status Reason Start Date Expiration Date Visits Re quested Visits Authorized [id number] 1 1 Encounter Details Date Type Department Care Team (Latest Contact Info) Description 04/17/2021 9:58 AM SOFTWARE INSTALLATION ENGINEER - 04/17/2021 1:21 PM SOFTWARE INSTALLATION ENGINEER Hospital Encounter [facility] [address] [place] [address] Kwame Camarillo MD [address] [facility] [place] [address] Other specified diseases of biliary tract Discharge Disposition: Discharge to home or self care Social History Tobacco Use Types Packs/Day Years [...] on file Legal Sex Male 11:14 AM SOFTWARE INSTALLATION ENGINEER Gender Identity Not on file Sexual Orientation Not on file documented as of this encounter Last Filed Vital Signs Vital Sign Reading Time Taken Comments Blood Pressure 127/85 04/17/2021 12:55 PM SOFTWARE INSTALLATION ENGINEER Pulse 64 04/17/2021 12:55 PM SOFTWARE INSTALLATION ENGINEER Temperature 12 ??C (53.6 ??F) 04/17/2021 12:40 PM SOFTWARE INSTALLATION ENGINEER Respiratory Rate 15 04/17/2021 12:55 PM SOFTWARE INSTALLATION ENGINEER Oxygen Saturation 99% 04/17/2021 12:55 PM SOFTWARE INSTALLATION ENGINEER Inhaled Oxygen Concentration - - Weight 63.5 kg (140 lb) 04/17/2021 10:58 AM SOFTWARE INSTALLATION ENGINEER Height 179.1 cm (5' 10.5 ) 04/17/2021 10:[address] Body Mass Index 19.8 04/17/2021 10:58 AM SOFTWARE INSTALLATION ENGINEER documented in this encounter Medications at Time of Discharge methadone (DOLOPHINE) 10 mg tablet Take 120 mg by mouth daily oxyCODONE-acetam inophen (PERCOCET) 10-325 mg per tablet Take 1 tablet by mouth 2 (two) times a day 03/22/2021 albuterol HFA (PROVENTIL HFA,VENTOLIN HFA) 90 mcg/actuation inhaler Inhale 2 puffs every 4 (four) hours as needed BREO ELLIPTA 200-25 mcg/dose diskus inhaler Inhale 1 puff daily 07/13/2017 clonazePAM (KlonoPIN) 0.5 mg tablet Take 0.5 mg by mouth 3 (three) times a day as needed for anxiety Incruse Ellipta 62.5 mcg/actuation blister with device Inhale 1 puff daily 04/08/2021 levothyroxine (SYNTHROID) 75 mcg tablet Take 1 tablet (75 mcg total) by mouth 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 potassium chloride ER (KLOR-CON) 10 mEq CR tablet Take 10 mEq by mouth daily sertraline (ZOLOFT) 50 mg tablet Take 100 mg by mouth daily tamsulosin (FLOMAX) 0.4 mg capsule,extended release 24hr Take 0.4 mg by mouth 2 (two) times a day tobramycin (MARIANGEL 300) 300 mg/5 mL nebulizer solution Take 5 mL by nebulization daily 04/01/2021 documented as of this encounter Discharge Disposition Disposition Code Departure Means Destination Discharge to home or self care documented in this encounter H&P Notes * Kwame Camarillo MD - 04/17/2021 10:53 AM CST ENDOSCOPY PRE-PROCEDURE MEDICAL HISTORY & PHYSICAL Saravanan Boland Aliciajrilsa 65 y.o. male There were no vitals taken for this visit. History: Past Medical History: Diagnosis Date ??? Depression ??? Emphysema of lung (CMS/HCC) (HCC) ??? Infectious viral hepatitis ??? Kidney stone ??? Legionnaire's disease (CMS/HCC) (HCC) 2018 ??? Melena Allergies Allergen Reactions ??? Narcan [Naloxone] Other (See comments) Patient indicating he cannot have narcan no matter what (methodone prescription) Medications Prior to Admission Medication Sig Dispense Refill Last Dose ??? methadone (DOLOPHINE) 10 mg tablet Take 120 mg by mouth daily 04/17/2021 at Unknown time ??? oxyCODONE-acetaminophen (PERCOCET) 10-325 mg per tablet Take 1 tablet by mouth 2 (two) times a day 04/16/2021 at Unknown time ??? albuterol HFA (PROVENTIL HFA,VENTOLIN HFA) 90 mcg/actuation inhaler Inhale 2 puffs every 4 (four) hours as needed ??? baclofen (LIORESAL) 10 mg tablet Take 1 tablet (10 mg total) by mouth 3 (three) times a day for15 days 45 tablet 0 ??? BREO ELLIPTA 200-25 mcg/dose diskus inhaler Inhale 1 puff daily ??? clonazePAM (KlonoPIN) 0.5 mg tablet Take 0.5 mg by mouth 3 (three) times a day as needed for anxiety ??? Incruse Ellipta 62.5 mcg/actuation blister with device Inhale 1 puff daily ??? 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 mirtazapine (REMERON) 15 mg tablet Take 15 mg by mouth nightly ??? omeprazole (PriLOSEC) 20 mg capsule Take 20 mg by mouth daily. ??? potassium chloride ER (KLOR-CON) 10 mEq CR tablet Take 10 mEq by mouth daily ??? sertraline (ZOLOFT) 50 mg tablet Take 100 mg by mouth daily ??? tamsulosin (FLOMAX) 0.4 mg capsule,extended release 24hr Take 0.4 mg by mouth 2 (two) times a day ??? tobramycin (MARIANGEL 300) 300 mg/5 mL nebulizer solution Take 5 mL by nebulization daily No current facility-administered medications for this encounter. Physicial Exam: Physical exam is normal ASA Evaluation and Anesthesia Plan: ASA 3 - Patient with moderate systemic disease with functional limitations Indication(s) for Procedure: biliary dilation Procedure Planned: EUS Kwame Camarillo MD WARE INSTALLATION ENGINEER documented in this encounter Procedure Notes * Kwame Camarillo MD - 04/17/2021 11:48 AM CSTAssociated Order(s): EUS ENDOSCOPY LAB Patient Name: Saravanan Lanza Procedure Date: 04/17/2021 11:48 AM Admit Type: Outpatient Room: [facility] Date of : 1955 Instrument Name: [id number] Gender: Male Note Status: Gel Coater Override Procedure: Upper EUS Indications: Common bile duct dilation (acquired) seen on MRCP, ERCP with sphincterotomy was negative, EUS to r/o subtle neoplasia Providers: Kwame Camarillo M.D. Referring MD: Jitendra Toure M.D., Mor Rodriguez M.D. Medicines: Monitored Anesthesia Care Complications: No immediate complications. Estimated blood loss: None. Estimated Blood Loss: Estimated blood loss: none. Procedure: The risks, benefits and alternatives were discussed and informed consent was obtained.The Endosonoscope was introduced through the mouth, and advanced to the third part of duodenum The upper EUS was accomplished without difficulty. The patient tolerated the procedure well. Findings: ENDOSCOPIC FINDING: : A medium-sized hiatal hernia was present. The entire examined stomach was normal. The examined duodenum was normal. ENDOSONOGRAPHIC FINDING: : The region of the celiac plexus and celiac ganglia was visualized and showed no sign of significant endosonographic abnormality. The vascular anatomy of the region was normal. Pancreatic parenchyma was hyperechoic due to fatty changes. There was no evidence of chronic pancreatitis. The pancreatic duct had a dilated endosonographic appearance in the main pancreatic duct. The pancreatic duct measured up to 5 mm in diameter. There was dilation in the common bile duct which measured up to 16 mm. A small amount of hyperechoic material consistent with sludge was visualized endosonographically in the gallbladder. There was no sign of significant endosonographic abnormality in the ampulla. No pathologic lymphadenopathy and no masses were identified. Impression: - The pancreatic duct had a dilated endosonographic appearance in the main pancreatic duct. There was no evidence of pancreatic mass or cystic lesions. - There was dilation in the common bile duct which measured up to 16 mm. 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 - Hyperechoic material consistent with sludge was visualized endosonographically in the gallbladder. - There was no sign of significant pathology in the ampulla. - No specimens collected. Recommendation: - The patient will be observed post-procedure, until all discharge criteria are met. - Return to referring physician PRN. - The findings and recommendations were discussed with the patient and their family. Attending Participation: I personally performed the entire procedure. Electronically signed by Kwame Camarillo MD Kwame Camarillo M.D. 04/17/2021 12:32:07 PM This document was signed electronically. Number of Addenda: 0 Note Initiated On: 04/17/2021 11:48 AM Scope In: Scope Out: WARE INSTALLATION ENGINEER WARE INSTALLATION ENGINEER documented in this encounter Plan of Treatment Pending Results Name Type Priority Associated Diagnoses Date /Time US Endoscopy Endo Imaging Procedure IP Routine Other specified diseases of biliary tract 04/17/2021 12:21 PM SOFTWARE INSTALLATION ENGINEER documented as of this encounter Procedures Procedure Name Priority Date/Time Associated Diagnosis Comments US ENDOSCOPIC IP Routine 04/17/2021 12:21 PM SOFTWARE INSTALLATION ENGINEER Other specified diseases of biliary tract ESOPHAGOGASTRODUODENOSCOPY ULTRASOUND EXAM LIMITED 04/17/2021 12:03 PM SOFTWARE INSTALLATION ENGINEER Other specified diseases of biliary tract EUS 04/17/2021 11:48 AM SOFTWARE INSTALLATION ENGINEER documented in this encounter Results * EUS (04/17/2021 11:48 AM SOFTWARE INSTALLATION ENGINEER) Anatomical Region Laterality Modality Other Narrative Procedure Note Kwame Camarillo MD - 04/17/2021 11:48 AM CST ENDOSCOPY LAB Patient Name: Saravanan Lanza Procedure Date: 04/17/2021 11:48AM Admit Type: Outpatient Room: [facility] Date of : 1955 Instrument Name: [id number] Gender: Male Note Status: Gel Coater Override Procedure: Upper EUS Indications: Common bile duct dilation (acquired) seen on MRCP, ERCP with sphincterotomy was negative, EUS to r/o subtle neoplasia Providers: Kwame Camarillo M.D. Referring MD: Jitendra Toure M.D., Mor Rodriguez M.D. Medicines: Monitored Anesthesia Care Complications: No immediate complications. Estimated blood loss:None. Estimated Blood Loss: Estimated blood loss: none. Procedure: The risks, benefits and alternatives were discussed and informed consent was obtained.The Endosonoscope was introduced through the mouth, and advanced tothe third part of duodenum The upper EUS wasaccomplished without difficulty. The patient tolerated the procedure well. Findings: ENDOSCOPIC FINDING: : A medium-sized hiatal hernia was present. The entire examined stomach was normal. The examined duodenum was normal. ENDOSONOGRAPHIC FINDING: : The region of the celiac plexus and celiac ganglia was visualized and showed no sign of significant endosonographic abnormality. Thevascular anatomy of the region was normal. Pancreatic parenchyma was hyperechoic due to fatty changes. There wasno evidence of chronic pancreatitis. The pancreatic duct had a dilated endosonographic appearance in themain pancreatic duct. The pancreatic duct measured up to 5 mm indiameter. There was dilation in the common bile duct which measured up to 16mm. A small amount of hyperechoic material consistent with sludge was visualized endosonographically in the gallbladder. There was no sign of significant endosonographic abnormality in the ampulla. No pathologic lymphadenopathy and no masses wereidentified. Impression: - The pancreatic duct had a dilated endosonographic appearance in the main pancreatic duct. There wasno evidence of pancreatic mass or cystic lesions. - There was dilation in the common bile duct which measured up to 16 mm. 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 - Hyperechoic material consistent with sludge was visualized endosonographically in thegallbladder. - There was no sign of significant pathology in the ampulla. - No specimens collected. Recommendation: - The patient will be observed post-procedure,until all discharge criteria are met. - Return to referring physician PRN. - The findings and recommendations were discussedwith the patient and their family. Attending Participation: I personally performed the entire procedure. Electronically signed by Kwame Camarillo MD Kwame Camarillo M.D. 04/17/2021 12:32:07 PM This document was signed electronically. Number of Addenda: 0 Note Initiated On: 04/17/2021 11:48 AM Scope In: Scope Out: Kwame Camarillo MD ENDOSCOPY PROCEDURES Edited R esult - Final documented in this encounter Visit Diagnoses Diagnosis Other specified diseases of biliary tract documented in this encounter Administered Medications Inactive Administered Medications - up to 3 most recent administrations Medication Order MAR Action Action Date Dose Rate Site Lactated Ringer's (LR) infusion 30 mL/hr, intravenous, Continuous, Starting on Thu04/17/21 at 1145 Restarted 04/17/2021 12:17 PM SOFTWARE INSTALLATION ENGINEER Rate/Dose Verify 04/17/2021 11:58 AM SOFTWARE INSTALLATION ENGINEER 30 mL/ hr New Bag 04/17/2021 11:12 AM SOFTWARE INSTALLATION ENGINEER 30 mL/hr 30 mL/hr sodium chloride 0.9% flush 0.5-20 mL 0.5-20 mL, intra-catheter, Every 8 hours scheduled, First dose on Thu04/17/21 at 1400, Pre-Procedure (GI), Flush volume based on line type and size. sodium chloride 0.9% flush 0.5-20 mL 0.5-20 mL, intra-catheter, As needed, line care, Starting on Thu04/17/21 at 1112, Pre-Procedure (GI), Flush volume based on line type and size. Flush before and after each use. sodium chloride 0.9% infusion 30 mL/hr, intravenous, Continuous, Starting on Thu04/17/21 at 1145, Pre- Procedure (GI), If chronic renal disease or requested by anesthesia documented in this encounter Historical Medications * This list may reflect changes made after this encounter. Incruse Ellipta 62.5 mcg/actuation blister with device Inhale 1 puff daily 04/08/2021 tobramycin (MARIANGEL 300) 300 mg/5 mL nebulizer solution Take 5 mL by nebulization daily 04/01/2021 oxyCODONE-acetam inophen (PERCOCET) 10-325 mg per tablet Take 1 tablet by mouth 2 (two) times a day 03/22/2021 added in this encounter Active and Recently Administered Medications Times are shown in SOFTWARE INSTALLATION ENGINEER. Scheduled Medication Order 04/15/2021 04/16/2021 04/17/2021 sodium chloride 0.9% flush 0.5-20 mL 0.5-20 mL, intra-catheter, Every 8 hours scheduled, First dose on Thu04/17/21 at 1400, Pre-Procedure (GI), Flush volume based on line type and size. Continuous Medication Order 04/15/2021 04/16/2021 04/17/2021 Lactated Ringer's (LR) infusion 30 mL/hr, intravenous, Continuous, Starting on Thu04/17/21 at 1145 1112 (New Bag - Prov ider: Christi Wright RN)1158 (Rate/Dose Verify - Provider: Traci Lamb CRNA)1216 (Paused - Provider: Traci Lamb CRNA - Comment: Switch to gravity)1217 (Restarted - Provider: Traci Lamb CRNA) sodium chloride 0.9% infusion 30 mL/hr, intravenous, Continuous, Starting on Thu04/17/21 at 1145, Pre-Procedure (GI), If chronic renal disease or requested by anesthesia 1145 (Due) PRN Medication Order 04/15/2021 04/16/2021 04/17/2021 sodium chloride 0.9% flush 0.5-20 mL 0.5-20 mL, intra-catheter, As needed, line care, Starting on Thu04/17/21 at 1112, Pre-Procedure (GI), Flush volume based on line type and size. Flush before and after each use. documented in this encounter Orders Medications Ordered That Carloz ht Not Have Been Administered Count Last Ordered Date First Ordered Date sodium chloride 0.9% flush 0.5-20 mL 2 03/26 sodium chloride 0.9% infusion 1 04/17/2021 Discharge Count Last Ordered Date First Orde red Date DISCHARGE PATIENT 1 04/17/2021 documented in this encounter Care Teams Shore Hand Dredge Or Barge Relationship Specialty Start Date End Date Mor Rodriguez MD PCP - General Family Practice 04/17/21 documented as of this encounter
--- OUTSIDE RECORDS SUMMARY | 2024-05-31 23:30 | XMS_ITS | Encounter Summary ---
Author Organization [facility] Address [address] [place] [id number] Phone Care Team Providers Care Home Security Professional Name Role Phone Manuel Browning DO Primary Care Provider [phone]- [phone] Encounter Details Date Type Department Care Team (Late st Contact Info) Description 11/20/2020 Orders Only [employer] [facility] [address] [place] [id number] Mj Warren MD Other specified abnormal finding of blood chemistry Social History Tobacco Use Types Packs/Day Years [...] Diagnosis Other specified abnormal finding of blood chemistry documented in this encounter Care Teams Home Security Professional Relationship Specialty Start Date End Date Manuel Browning DO [address] [place] [address] PCP - General Family Medicine 11/20/20 documented as of this encounter
--- OUTSIDE RECORDS SUMMARY | 2024-05-31 23:30 | XMS_ITS | Encounter Summary ---
Author Organization [facility] Healthcare Address [address] [place] [address] Care Team Providers Care Incident Engineer Name Role Phone Manuel Browning DO Primary Care Provider [phone] Encounter Details Date Type Department Care Team (Late st Contact Info) Description 05/22/2020 9:00 AM RECEIVING BARN CUSTODIAN Lab [address] [id number] Manuel Browning DO [address] [place] [id number] Discharge Disposition: Discharge to home or self care Social History Tobacco Use Types Packs/Day Years Used Date Smoking Tobacco: Former Smokeless Tobacco: Current Comments:e cig Alcohol Use Standard Drinks/Week Comments Not Currently 0 (1 standard drink = 0.6 oz pur e alcohol) PHQ-2 Answer Date Recorded PHQ-2 Total Score (If total score is 3 or more points, staff should administer the PHQ-9) 0 01/15/2020 Sex and Gender Information Value Date Recorded Sex Assigned at Not on file Legal Sex Male 11:14 AM RECEIVING BARN CUSTODIAN Gender Identity Not on file Sexual Orientation Not on file documented as of this encounter Discharge Disposition Disposition Code Departure Means Destination Discharge to home or self care documented in this encounter Plan of Treatment Not on file documented as of this encounter Procedures Procedure Name Priority Date/Time Associated Diagnosis Comments URINALYSIS AND REFLEX TO MICROSCOPIC AND CULTURE Routine 05/22/2020 9:46 AM RECEIVING BARN CUSTODIAN URINALYSIS, MICROSCOPIC ONLY Routine 05/22/2020 9:46 AM RECEIVING BARN CUSTODIAN EGFR Routine 05/22/2020 8:59 AM RECEIVING BARN CUSTODIAN DIFFERENTIAL AUTO Routine 05/22/2020 8:5 9 AM RECEIVING BARN CUSTODIAN CBC WITH AUTO DIFFERENTIAL Routine 05/22/2020 8:59 AM RECEIVING BARN CUSTODIAN VITAMIN D 25 HYDROXY Routine 05/22/2020 8:59 AM RECEIVING BARN CUSTODIAN TSH Routine 05/22/2020 8:59 AM RECEIVING BARN CUSTODIAN PSA DIAGNOSTIC Routine 05/22/2020 8:59 AM RECEIVING BARN CUSTODIAN FOLATE Routine 05/22/2020 8:59 AM RECEIVING BARN CUSTODIAN VITAMIN B12 Routine 05/22/2020 8:59 AM RECEIVING BARN CUSTODIAN LIPID PANEL Routine 05/22/2020 8:59 AM RECEIVING BARN CUSTODIAN COMPREHENSIVE METABOLIC PANEL Routine 05/22/2020 8:59 AM RECEIVING BARN CUSTODIAN documented in this encounter Results * (ABNORMAL) Urinalysis, microscopic only (05/22/2020 9:46 AM RECEIVING BARN CUSTODIAN) WBC, ur 0-5 0 - 5 /HPF [facility] ([place]) RBC, ur 0-2 0 - 2 /HPF [facility] ([place]) Epithelial cells, squamous, ur 1-5 0 - 5 /HPF [facility] ([place]) Bacteria, ur Trace(A) [facility] ([place]) Mucous, ur Present(A) [facility] ([place]) Culture Reflex Comment Reflex conditions for urine culture (WBC >10) not met. [facility] ([place]) Urine 05/22/2020 9:46 AM RECEIVING BARN CUSTODIAN 05/22/2020 9:46 AM RECEIVING BARN CUSTODIAN Manuel Browning DO LAB URINE ORDERABLES Cecilia l Result [facility] ([place]) 1 [facility] Department [place] [address] * (ABNORMAL) Urinalysis reflex to microscopic and culture Urine (05/22/2020 9:46 AM RECEIVING BARN CUSTODIAN) Color, ur Yellow Yellow [facility] ([place]) Clarity, ur Clear Clear [facility] ([place]) Specific gravity, ur 1.028(H) 1.010 - 1.025 [facility] ([place]) pH, urine 5.5 [facility] ([place]) Protein, ur ql Trace Negative [facility] ([place]) Glucose, ur ql Negative Negative [facility] ([place]) Ketones, ur Negative Negative [facility] ([place]) Bilirubin, ur Negative Negative [facility] ([place]) Blood, ur Negative Negative [facility] ([place]) Urobilinogen, ur <2.0 <2.0 mg/dL [facility] ([place]) Nitrite, ur Negative Negative [facility] ([place]) Leukocyte esterase, ur 1+(A) Negative [facility] ([place]) UA reflex comment Reflex to microscopic UA will be performed. [facility] ([place]) Urine 05/22/2020 9:46 AM RECEIVING BARN CUSTODIAN 05/22/2020 9:46 AM RECEIVING BARN CUSTODIAN Narrative [facility] ([place]) - 05/22/2020 10:00 AM RECEIVING BARN CUSTODIAN ?? Urine pH is affected by diet, medications, systemic acid-base disturbances, and renal tubular function. ??pH may affect urinary stone formation. ??For example, urine pH below 6.0 may help reduce the tendency for calcium phosphate stones and pH greater than 6.0 may reduce the tendency for uric acid stone formation. Source: [employer]. Last revised 06-04-2017 us Manuel Browning DO LAB MICROBIOLOGY - GENERA L ORDERABLES Final Result [facility] ([place]) 1 [facility] Department [place] [address] * eGFR (05/22/2020 8:59 AM RECEIVING BARN CUSTODIAN) eGFR 75 mL/min/1.7 3 m2 [facility] ([place]) Comment: Interpretive Data Reference Interval Normal ?>/= 90 mL/min/1.73m2 Mildly decreased* ? 60 - 89 mL/min/1.73m2 Mildly to moderately decreased ?45 - 59 mL/min/1.73m2 Moderately to severely decreased ??30 - 44 mL/min/1.73m2 Severely decreased ?15 - 29 mL/min/1.73m2 Kidney Failure ?< 15 ??mL/min/1.73m2 *Relative to young adult level If -Italian multiply value by 1.16. Estimated glomerular filtration rate is determined by the CKD-EPI equation recommended by the National Kidney Foundation (KDIGO 2012 Clinical Practice Guideline for the Evaluation and Management of Chronic Kidney Disease. Kidney Intnl Suppl May 2012;3:1). The CKD-EPI equation should not be used for patients with unstable renal function and has not been validated in children and those over 70. Current interpretive data was last reviewed 2015. Blood specimen (specimen) 05/22/2020 8:59 AM RECEIVING BARN CUSTODIAN 05/22/2020 9:36 AM RECEIVING BARN CUSTODIAN us Manuel Browning DO LAB BLOOD ORDERABLES Cecilia shady Result [facility] ([place]) 1 [facility] Department [place] [address] * Differential, auto (05/22/2020 8:59 AM RECEIVING BARN CUSTODIAN) Neutrophil abs 4.9 1.7 - 6.5 K/cumm [facility] ([place]) Imm gran abs 0.0 0.0 - 0.1 K/cumm [facility] ([place]) Lymphocyte abs 1.2 0.8 - 3.3 K/cumm [facility] ([place]) Monocyte abs 0.8 0.2 - 0.8 K/cumm [facility] ([place]) Eosinophil abs 0.5 0.0 - 0.5 K/cumm [facility] ([place]) Basophil abs 0.1 0.0 - 0.1 K/cumm [facility] ([place]) Neutrophil pct 66.0 % [facility] ([place]) Comment: Interpretive Data Percent cell count reference ranges are not reported, since discordance with absolute values may lead to misinterpretation of CBC data. Current Interpretive Data was last revised on 2017. Imm gran pct 0.5 % [facility] ([place]) Comment: Interpretive Data Percent cell count reference ranges are not reported, since discordance with absolute values may lead to misinterpretation of CBC data. Current Interpretive Data was last revised on 2017. Lymphocyte pct 16.0 % [facility] ([place]) Comment: Interpretive Data Percent cell count reference ranges are not reported, since discordance with absolute values may lead to misinterpretation of CBC data. Current Interpretive Data was last revised on 2017. Monocyte pct 10.1 % [facility] ([place]) Comment: Interpretive Data Percent cell count reference ranges are not reported, since discordance with absolute values may lead to misinterpretation of CBC data. Current Interpretive Data was last revised on 2017. Eosinophil pct 6.3 % [facility] ([place]) Comment: Interpretive Data Percent cell count reference ranges are not reported, since discordance with absolute values may lead to misinterpretation of CBC data. Current Interpretive Data was last revised on 2017. Basophil pct 1.1 % [facility] ([place]) Comment: Interpretive Data Percent cell count reference ranges are not reported, since discordance with absolute values may lead to misinterpretation of CBC data. Current Interpretive Data was last revised on 2017. Blood specimen (specimen) 05/22/2020 8:59 AM RECEIVING BARN CUSTODIAN 05/22/2020 9:36 AM RECEIVING BARN CUSTODIAN Manuel Browning DO LAB BLOOD ORDERABLES Cecilia l Result [facility] ([place]) 1 [facility] Department [place] [address] * Folate (05/22/2020 8:59 AM RECEIVING BARN CUSTODIAN) Pathologist [facility] Folic acid 11.1 >=5.0 ng/mL [facility] ([place]) Comment: Hemolysis present. ??Results may be affected. Testing performed by: [facility], [address] [place] [address]., [id number] Blood specimen (specimen) 05/22/2020 8:59 AM RECEIVING BARN CUSTODIAN 05/22/2020 2:20 PM RECEIVING BARN CUSTODIAN Manuel Browning DO LAB BLOOD ORDERABLES Cecilia l Result Performing Organization Address City/[facility] Co de Phone Number [facility] ([place]) 1 [facility] [place] [employer] [address] * Vitamin B12 (05/22/2020 8:59 AM RECEIVING BARN CUSTODIAN) [facility] Vitamin B12 663 230 - 1,250 pg/mL [facility] ([place]) Comment:Testing performed by : [facility], [address] [place] [address]., [id number] Blood specimen (specimen) 05/22/2020 8:59 AM RECEIVING BARN CUSTODIAN 05/22/2020 2:20 PM RECEIVING BARN CUSTODIAN Manuel Browning DO LAB BLOOD ORDERABLES Cecilia l Result Performing Organization Address [facility] de Phone Number [facility] ([place]) 1 [facility] [place] [address] * (ABNORMAL) Lipid panel (05/22/2020 8:59 AM RECEIVING BARN CUSTODIAN) [facility] Cholesterol 155 30 - 199 mg/dL [facility] ([place]) Comment: Interpretive Data Ages < or = 19 years ??Acceptable: ? <170 mg/dL ??Borderline high: ??170-199 mg/dL ??High: ? >or= 200 mg/dL Ages > or = 20 years ??Desirable: ?<200 mg/dL ??Borderline high: ??200-239 mg/dL ??High: ? >or= 240 mg/dL Literature References: 1. Expert Panel on Integrated Guidelines for Cardiovascular Health and Risk Reduction in Children and Adolescents. Pediatrics 2011;128:S213 2. NCEP Expert Panel. Circulation 2004;110:227 Current Interpretive Data was last revised on 2018. Triglycerides 110 <=149 mg/dL [facility]) Comment: Interpretive Data Ages < or = 9 years ??Acceptable: ? <75 mg/dL ??Borderline high: ??75-99 mg/dL ??High: ? >or= 100 mg/dL Ages 10 to 20 years ??Acceptable: ? <90 mg/dL ??Borderline high: ??90-129 mg/dL ??High: ? >or= 130 mg/dL Ages > or = 20 years ??Desirable: ?<150 mg/dL ??Borderline high: ??150-199 mg/dL ??High: ? 200-499 mg/dL ?Very high: ?? >or= 499 mg/dL Literature References: 1. Expert Panel on Integrated Guidelines for Cardiovascular Health and Risk Reduction in Children and Adolescents. Pediatrics 2011;128:S213 2. NCEP Expert Panel. Circulation 2004;110:227 Current Interpretive Data was last revised on 2018. HDL 39(L) >=40 mg/dL [facility]) Comment: Interpretive Data Ages < or = 19 years ??Acceptable: ? >45 mg/dL ??Borderline low: ?? 40-45 mg/dL ??Low: ? <40 mg/dL Ages > or = 20 years ??Desirable: ?>or= 60 mg/dL ??Low: ? <40 mg/dL Literature References: 1. Expert Panel on Integrated Guidelines for Cardiovascular Health and Risk Reduction in Children and Adolescents. Pediatrics 2011;128:S213 2. NCEP Expert Panel. Circulation 2004;110:227 Current Interpretive Data was last revised on 2018. LDL, calculated 94 <=129 mg/dL [facility] ([place]) Comment: Interpretive Data Ages < or = 19 years ??Acceptable: ? <110 mg/dL ??Borderline high: ??110-129 mg/dL ??High: ?>or= 130 mg/dL Ages > or = 20 years ??Optimal: ? <100 mg/dL ??Near optimal: ?100-129 mg/dL ??Borderline high: ?? 130-159 mg/dL ??High: ?>160 mg/dL Literature References: 1. Expert Panel on Integrated Guidelines for Cardiovascular Health and Risk Reduction in Children and Adolescents. Pediatrics 2011;128:S213 2. NCEP Expert Panel. Circulation 2004;110:227 Current Interpretive Data was last revised on 2018. Non-HDL Cholesterol 116 mg/dL [facility] ([place]) Comment: Interpretive Data Ages < or = 19 years ??Acceptable: ?<120 mg/dL ??Borderline high: ??120-144 mg/dL ??High: ?>145 mg/dL Ages > or = 20 years ??When triglycerides are >200 mg/dL, Non-HDL cholesterol is a secondary target of ? therapy with treatment goals that are 30 mg/dL greater than the LDL cholesterol target. ? Literature References: 1. Expert Panel on Integrated Guidelines for Cardiovascular Health and Risk Reduction in Children and Adolescents. Pediatrics 2011;128:S213 2. NCEP Expert Panel. Circulation 2004;110:227 Current Interpretive Data was last revised on 2018. Chol/HDL ratio 4 [facility] ([place]) Blood specimen (specimen) 05/22/2020 8:59 AM RECEIVING BARN CUSTODIAN 05/22/2020 9:36 AM RECEIVING BARN CUSTODIAN us Manuel Browning DO LAB BLOOD ORDERABLES Cecilia caruso Result [facility] ([place]) 1 [facility] Department [place] [address] * TSH (05/22/2020 8:59 AM RECEIVING BARN CUSTODIAN) Thyroid Stimulating Hormone 2.89 0.30 - 4.20 mcIUnit/mL [facility] Blood specimen (specimen) 05/22/2020 8:59 AM RECEIVING BARN CUSTODIAN 05/22/2020 9:36 AM RECEIVING BARN CUSTODIAN Manuel Browning DO LAB BLOOD ORDERABLES Cecilia l Result [facility] ([place]) 1 [facility] Department [place] [address] * (ABNORMAL) Comprehensive metabolic panel (05/22/2020 8:59 AM RECEIVING BARN CUSTODIAN) Sodium 137 135 - 145 mmol/L [facility] ([place]) Potassium, pl 3.8 3.3 - 4.9 mmol/L [facility] ([place]) Chloride 103 97 - 110 mmol/L [facility] ([place]) CO2 26 22 - 32 mmol/L [facility] ([place]) Anion gap 8 2 - 15 mmol/L [facility] ([place]) BUN 12 8 - 25 mg/dL [facility] ([place]) Creatinine 1.04 0.80 - 1.30 mg/dL [facility] ([place]) Glucose 74 70 - 199 mg/dL [facility] ([place]) Comment: Interpretive Data Fasting glucose >/= 126 mg/dl is diagnostic for diabetes. ?? Fasting is defined as no caloric intake for at least 8 hours. Fasting glucose between 100 mg/dl to 125 mg/dl is diagnostic of prediabetes. In a patient with classic symptoms of hyperglycemia or hyperglycemic crisis, a random glucose >/= 200 mg/dl is diagnostic for diabetes. In the absence of unequivocal hyperglycemia, results should be confirmed by repeat testing. The classification and Diagnosis of Diabetes Diabetes Care 2017;40 (Suppl. 1):S11. Current interpretive data was last revised 2017. Calcium 9.0 8.5 - 10.3 mg/dL [facility] ([place]) Bilirubin, total 0.4 0.1 - 1.2 mg/dL [facility] ([place]) Protein, pl 6.6 6.5 - 8.5 g/dL [facility] ([place]) Albumin 3.3(L) 3.5 - 5.0 g/dL [facility] ([place]) Alk phos 53 40 - 130 Units/L [facility] ([place]) ALT 9 7 - 55 Units/L [facility] ([place]) AST 19 10 - 50 Units/L [facility] ([place]) Blood specimen (specimen) 05/22/2020 8:59 AM RECEIVING BARN CUSTODIAN 05/22/2020 9:36 AM RECEIVING BARN CUSTODIAN us Manuel Browning DO LAB BLOOD ORDERABLES Cecilia l Result [facility] ([place]) 1 [facility] Department [place] [address] * (ABNORMAL) CBC with auto differential (05/22/2020 8:59 AM RECEIVING BARN CUSTODIAN) WBC 7.5 3.8 - 9.9 K/cumm [facility] ([place]) Hgb 9.6(L) 13.0 - 17.5 g/dL [facility] ([place]) Hct 31.0(L) 38.9 - 50.3 % [facility] ([place]) Plt 186 150 - 400 K/cumm [facility] ([place]) MPV 10.8 9.1 - 12.3 fL [facility] ([place]) RBC 3.24(L) 4.30 - 5.80 M/cumm [facility] ([place]) MCV 95.7 81.3 - 96.4 fL [facility] ([place]) MCH 29.6 27.1 - 33.3 pg [facility] ([place]) MCHC 31.0(L) 32.3 - 35.7 g/dL [facility] ([place]) RDW CV 14.6 11.1 - 14.9 % [facility] ([place]) RDW SD 51.8(H) 35.7 - 48.1 fL [facility] ([place]) NRBC abs 0.00 0.00 - 0.01 K/cumm [facility] ([place]) Blood specimen (specimen) 05/22/2020 8:59 AM RECEIVING BARN CUSTODIAN 05/22/2020 9:36 AM RECEIVING BARN CUSTODIAN Manuel Browning DO LAB BLOOD ORDERABLES Cecilia l Result Performing Organization Address City/[facility]/ZIP Co de Phone Number [facility] ([place]) 1 [facility] [place] [employer] [address] * Vitamin D 25 hydroxy (05/22/2020 8:59 AM RECEIVING BARN CUSTODIAN) Pathologist [facility] Vitamin D 25-OH 30 30 - 80 ng/mL [facility] ([place]) Blood specimen (specimen) 05/22/2020 8:59 AM RECEIVING BARN CUSTODIAN 05/22/2020 9:36 AM RECEIVING BARN CUSTODIAN Manuel Browning DO LAB BLOOD ORDERABLES Cecilia l Result Performing Organization Address [facility] de Phone Number [facility] ([place]) 1 [facility] [place] [employer] [address] * PSA diagnostic (05/22/2020 8:59 AM RECEIVING BARN CUSTODIAN) PSA-Total 0.50 <=5.40 ng/mL [facility] ([place]) Comment: Interpretive Data ?AGE ? SEX ?REFERENCE INTERVAL 0 minutes-150 years ?Female ?None 0 minutes-49 years ? Male ?None ? 50-59 years ? Male ?0-3.90 ? 60-69 years ? Male ?0-5.40 ? 70-79 years ? Male ?0-6.20 ? 80-150 years ?Male ?0-6.20 Current interpretive data last revised 2018. Testing performed by: [facility], [address] [place] [address], [place]., [address] Blood specimen (specimen) 05/22/2020 8:59 AM RECEIVING BARN CUSTODIAN 05/22/2020 2:20 PM RECEIVING BARN CUSTODIAN us Manuel Browning DO LAB BLOOD ORDERABLES Cecilia l Result Performing Organization Address City/State/[facility] Co de Phone Number [facility] ([place]) 1 [facility] Department [place] [address] documented in this encounter Visit Diagnoses Not on filedocumented in this encounter Care Teams Incident Engineer Relationship Specialty Start Date End Date Manuel Browning DO PCP - General 05/14/20 04/16/21 documented as of this encounter
--- OUTSIDE RECORDS SUMMARY | 2024-05-31 23:30 | XMS_ITS | Encounter Summary ---
Author Organization [facility] Healthcare Address [address] [place] [address] Care Team Providers Care Bonsai Culturist Name Role Phone Manuel Browning DO Primary Care Provider [phone] Reason for Visit * Diagnostic Imaging (Routine) - Closed Specialty Diagnoses / Procedures Referred By Contac t Referred To Contact Diagnoses Collapsed vertebra, not elsewhere classified, site unspecified, initial encounter for fracture (HCC) Procedures Dexa Axial Skeleton Bone Density 1 or 2 Site Dexa Axial and Forearm Bone Density Scan Transcribed Order, Provider [address] [address] Referral ID Status Reason Start Date Expiration Date Visits Re quested Visits Authorized [id number] Closed 05/11/2020 06/10/2021 1 1 Encounter Details Date Type Department Care Team (Latest Contact Info) Description 05/22/2020 7:24 AM 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 - 05/22/2020 11:59 PM 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 Hospital Encounter [facility] [address] [place] [id number] Manuel Browning DO [address] [place] [id number] Collapsed vertebra, not elsewhere classified, site unspecified, initial encounter for fracture (CMS/HCC) Discharge Disposition: Discharge to home or self [...] on file Legal Sex Male 11:14 AM 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 Gender Identity Not on file Sexual Orientation Not on file documented as of this encounter Medications at Time of Discharge methadone (DOLOPHINE) 10 mg tablet Take 120 mg by mouth daily albuterol HFA (PROVENTIL HFA,VENTOLIN HFA) 90 mcg/actuation inhaler Inhale 2 puffs every 4 (four) hours as needed BREO ELLIPTA 200-25 mcg/dose diskus inhaler Inhale 1 puff daily 07/13/2017 clonazePAM (KlonoPIN) 0.5 mg tablet Take 0.5 mg by mouth 3 (three) times a day as needed for anxiety levothyroxine (SYNTHROID) 75 mcg tablet Take 1 tablet (75 mcg total) by mouth internal investigator before breakfast 30 tablet 2 01/18/2020 mirtazapine [...] by mouth 2 (two) times a day documented as of this encounter Discharge Disposition Disposition Code Departure Means Destination Discharge to home or self care documented in this encounter Plan of Treatment Not on file documented as of this encounter Procedures Procedure Name Priority Date/Time Associated Diagnosis Comments DEXA AXIAL SKELETON BONE DENSITY 1 OR MORE SITES Schedule Routine, Read Routine (OP Routine) 05/22/2020 8:27 AM 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 Collapsed vertebra, not elsewhere classified, site unspecified, initial encounter for fracture ([facility]) documented in this encounter Results * Dexa Axial Skeleton Bone Density 1 or 2 Site (05/22/2020 8:27 AM 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) Anatomical Region Laterality Modality Body N/A Other 05/22/2020 8:29 AM 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 Impressions 05/22/2020 8:30 AM 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 According to the World Health Organization criteria, based upon the left total hip bone mineral density (T score value of -2.8), the patient has osteoporosis. A FRAX score based upon a DXA study is not reported unless all of the following criteria are met. ??The patient: ?? a. ??Is an untreated postmenopausal woman or a man age 50 or older. ?? b. ??Has low bone mass (T-score between -1.0 and -2.5). ?? c. ??Has no prior hip or vertebral fracture (clinical or morphometric). ?? d. ??Has an evaluable hip for DXA study. ?? General Recommendations: ?? 1. Consider an evaluation for secondary causes of osteoporosis in patients with low bone density. ?? 2. All patients should be counseled on adequate intake of calcium (1200 mg/day), vitamin D (600-800 IU daily) and exercise. ?? 3. The National Osteoporosis Foundation (NOF) guidelines recommend initiating pharmacological therapy, in addition to calcium, vitamin D and exercise, to reduce fracture risk when: ?? a. T-score less than or equal to -2.5 after secondary causes excluded. ?? b. T-score between -1.0 and -2.5 with secondary causes associated with high risk of fracture. ?? c. 10-year probability of hip fracture more than or equal to 3% (based on FRAX score). ?? d. 10-year probability of major osteoporosis related fracture more than or equal to 20% (based on FRAX score). ?? Followup: ?? People with diagnosed cases of osteoporosis or at high risk for fracture should have regular bone mineral density tests. ??For patients eligible for Medicare, routine testing is allowed once every 2 years. The testing frequency can be increased to one year for patients who have rapidly progressive disease or those who are receiving long-term steroid therapy. ?? Electronically signed by: Felix Valiente M.D. Narrative 05/22/2020 8:30 AM [facility] STUDY DESCRIPTION: DEXA AXIAL SKELETON BONE DENSITY 1 OR MORE SITES CLINICAL INDICATIONS: Smoking, prior fracture, rheumatoid arthritis, chronic obstructive pulmonary disease. COMPARISON: None TECHNIQUE: Dual x-ray absorptiometry (DEXA) was performed using [employer] system. GENERAL GUIDELINES: According to WHO guidelines, a T score of -1.0 or greater is normal, between -1.0 to -2.4 is osteopenia, and -2.5 or less is osteoporosis. Z score (instead of T score) is preferred for pediatric, young adults, premenopausal women and men under age of 50 years. ??In these patients, a Z score greater than or equal to -2.0 is considered to be in the expected range. FINDINGS: LEFT FEMORAL NECK: T-score -2.6. Bone mineral density 0.576 g/sq/cm. LEFT TOTAL HIP: T-score -2.8. Bone mineral density 0.608 g/sq/cm. LUMBAR SPINE: T-score -1.9. Bone mineral density 0.887 g/sq/cm. Procedure Note Felix Valiente MD - 05/22/2020 STUDY DESCRIPTION: DEXA AXIAL SKELETON BONE DENSITY 1 OR MORE SITES CLINICAL INDICATIONS: Smoking, prior fracture, rheumatoid arthritis, chronic obstructive pulmonary disease. COMPARISON: None TECHNIQUE: Dual x-ray absorptiometry (DEXA) was performed using [employer] system. GENERAL GUIDELINES: According to WHO guidelines, a T score of -1.0 or greater is normal, between -1.0 to -2.4 is osteopenia, and -2.5 or less is osteoporosis. Z score (instead of T score) is preferred for pediatric, young adults, premenopausal women and men under age of 50 years. In these patients, a Z score greater than or equal to -2.0 is considered to be in the expected range. FINDINGS: LEFT FEMORAL NECK: T-score -2.6. Bone mineral density 0.576 g/sq/cm. LEFT TOTAL HIP: T-score -2.8. Bone mineral density 0.608 g/sq/cm. LUMBAR SPINE: T-score -1.9. Bone mineral density 0.887 g/sq/cm. IMPRESSION: According to the World Health Organization criteria, based upon the left total hip bone mineral density (T score value of -2.8), the patient has osteoporosis. A FRAX score based upon a DXA study is not reported unless all of the following criteria are met. The patient: a. Is an untreated postmenopausal woman or a man age 50 or older. b. Has low bone mass (T-score between -1.0 and -2.5). c. Has no prior hip or vertebral fracture (clinical or morphometric). d. Has an evaluable hip for DXA study. General Recommendations: 1. Consider an evaluation for secondary causes of osteoporosis in patients with low bone density. 2. All patients should be counseled on adequate intake of calcium (1200 mg/day), vitamin D (600-800 IU daily) and exercise. 3. The National Osteoporosis Foundation (NOF) guidelines recommend initiating pharmacological therapy, in addition to calcium, vitamin D and exercise, to reduce fracture risk when: a. T-score less than or equal to -2.5 after secondary causes excluded. b. T-score between -1.0 and -2.5 with secondary causes associated with high risk of fracture. c. 10-year probability of hip fracture more than or equal to 3% (based on FRAX score). d. 10-year probability of major osteoporosis related fracture more than or equal to 20% (based on FRAX score). Followup: People with diagnosed cases of osteoporosis or at high risk for fracture should have regular bone mineral density tests. For patients eligible for Medicare, routine testing is allowed once every 2 years. The testing frequency can be increased to one year for patients who have rapidly progressive disease or those who are receiving long-term steroid therapy. Electronically signed by: Felix Valiente M.D. Manuel Browning DO [facility] [place]ED[place] Final Result documented in this encounter Visit Diagnoses Diagnosis Collapsed vertebra, not elsewhere classified, site unspecified, initial encounter for fracture (HCC) documented in this encounter Care Teams Bonsai Culturist Relationship Specialty Start Date End Date Manuel Browning DO PCP - General 05/14/20 04/16/21 documented as of this encounter
--- OUTSIDE RECORDS SUMMARY | 2024-05-31 23:30 | XMS_ITS | Clinical Summary ---
Author Organization [facility] Address [address] [place] [address] Care Team Providers Care Solutions Delivery Consultant Name Role Phone Mor Rodriguez MD Primary Care Provider [phone] Allergies Active Allergy Reactions Criticality Noted Date [...] 1 tablet (75 mcg total) by mouth english professor before breakfast 30 tablet 2 0 Active [...] Name Administration Dates Next Due Tdap 06/04/2019 Surgical History Surgery Date Site/Laterality Comments COLONOSCOPY 05/25/2008 - 05/24/2009 Medical History Medical History Date Comments Emphysema of lung (HCC) Kidney stone Infectious viral hepatitis Depression Melena Legionnaire's disease (CMS/HCC) ([facility]) 2018 Social History Tobacco Use Types Packs/Day Years [...] on file Legal Sex Male 11:14 AM 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 Gender Identity Not on file Sexual Orientation Not on file Obstetrics History Last Filed Vital Signs Vital Sign Reading [...] Body Mass Index 19.8 04/17/2021 10:58 AM 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 Plan of Treatment Health Maintenance Due Date Last Done Comments Pneumococcal vaccine 65+ (1 of 2 - PCV) 1960 Zoster Vaccine (1 of 2) 2004 Well Visit 65+ 2019 Depression Screening 01/08/2021 01/09/2020 Fall Risk Assessment 04/17/2022 04/17/2021 Prostate Cancer Screening-PSA 05/22/2022 05/22/2020 Influenza Vaccine (#1) 2024 02/09/2017 Colon Cancer Screening-Colonoscopy 11/25/2027 11/24/2017 DTaP/Tdap/Td Vaccine (2 - Td or Tdap) 06/04/2029 06/04/2019 Colon Cancer Screening-CT Colonography Discontinued 11/24/2017 Colon Cancer Screening-DNA Stool Discontinued 11/25/19 Colon Cancer Screening-FIT Discontinued 11/24/2017 Colon Cancer Screening-Sigmoidoscopy Discontinued 11/24/2017 Hepatitis C Screening Completed 12/22/2019 , 11/16/2019, 01/05/2018, Additional history exists Abdominal Aortic Aneurysm (A AA) Screen Completed 05/22/2020, 01/07/2017 Procedures Procedure Name Priority Date/Time Associated Diagnosis Comments PSA DIAGNOSTIC Routine 05/22/2020 8:59 AM 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 CT ABDOMEN PELVIS WO CONTRAST Schedule Routine, Read Routine (OP Routine) 05/22/2020 7:51 AM 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 Abnormal weight loss COLONOSCOPY 11/24/2017 9:42 AM CDT from Last 3 Months or Most Recently Relevant to Health Maintenance Results * PSA diagnostic (05/22/2020 8:59 AM 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) PSA-Total 0.50 <=5.40 ng/mL [facility] ([place]) Comment: Interpretive Data ?AGE ? SEX ?REFERENCE INTERVAL 0 minutes-150 years ?Female ?None 0 minutes-49 years ? Male ?None ? 50-59 years ? Male ?0-3.90 ? 60-69 years ? Male ?0-5.40 ? 70-79 years ? Male ?0-6.20 ? 80-150 years ?Male ?0-6.20 Current interpretive data last revised 2018. Testing performed by: [facility], [address] [place] [address]., [id number] Blood specimen (specimen) 05/22/2020 8:59 AM 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 05/22/2020 2:20 PM 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 us Mitchell Gutierrez DO LAB BLOOD ORDERABLES Cecilia caruso Result [facility] ([place] Department [place] [address] * CT Abdomen Pelvis WO Contrast (05/22/2020 7:51 AM 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) Anatomical Region Laterality Modality Body N/A Computed Tomogra phy 05/22/2020 8:05 AM 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 Impressions 05/22/2020 8:28 AM 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 1. ??Large, debris-filled hiatal hernia present. ??Scattered [...] Felix Galvez M.D. Narrative 05/22/2020 8:28 AM 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 EXAMINATION: CT ABDOMEN PELVIS WO CONTRAST ORDERING [...] nature. Electronically signed by: Felix Galvez M.D. us Mitchell Gutierrez DO [facility] PROCEDURES Final R esult * COLONOSCOPY (11/24/2017 9:42 AM CDT) Anatomical Region Laterality Modality Other Narrative Procedure Note Dewayne Alaniz MD - 11/24/2017 9:42 AM CDT [facility] Patient Name: Christal Lanza Procedure Date: 11/24/2017 9:42 AM Date of : 1955 Admit Type: Outpatient Age: 62 Gender: Male Attending MD: Dewayne Alaniz MD Room: [facility] ENDOSCOPY CAPSULE Note Status: Finalized Patient Profile: 62 WM with unexplained weight loss, and abnormal stool/diarrhea, no family h/o colon cancer. Procedure: Colonoscopy Indications: Last colonoscopy: November 2008, Clinically significant diarrhea of unexplained origin, Weight loss Referring MD: Geovanni Saunders NP Providers: Dewayne Alaniz MD Impression: - The [...] passed under direct vision.The Pediatric Colonoscope [id number] was introduced through the anus and advanced [...] 9:42 AM Procedure Code(s): --- Professional --- 76157, Colonoscopy, flexible; with biopsy, single or multiple Diagnosis Code(s): --- Professional --- K64.8, Other hemorrhoids R63.4, Abnormal weight loss R19.7, Diarrhea, unspecified CPT copyright 2017 [employer]. All rights reserved. The codes documented in this report are preliminary and upon certified coder reviewmay be revised to meet current compliance requirements. Recognized by the [employer] for promoting quality in endoscopy Dewayne Alaniz MD ENDOSCOPY PROCEDURES Final Result from Last 3 Months or Most Recently Relevant to Health Maintenance Insurance MEDICARE [facility] [employer] CHOICE MEDICARE PPO AETNA MEDICARE GOLD IDPA AETNA MEDICARE GOLD IDPA AETNA MEDICARE GOLD Advance Directives For more information, please contact: [phone] * Full Code (Latest Code Status on File) Date Activated Date Inactivated Comments 04/17/2021 11:12 AM 04/17/2021 5:26 PM * Full Code Date Activated Date Inactivated Comments 01/09/2020 5:16 PM 01/17/2020 6:36 PM * Full Code Date Activated Date Inactivated Comments 11/24/2017 8:23 AM 11/24/2017 1:42 PM Care Teams Solutions Delivery Consultant Relationship Specialty Start Date End Date Mor Rodriguez MD PCP - General Family Practice 04/17/21
--- OUTSIDE RECORDS SUMMARY | 2024-05-31 23:30 | XMS_ITS | Encounter Summary ---
Author Organization [facility] , [facility] Address [address] [address] Phone Care Team Providers Care Rockboard Lather Name Role Phone Manuel Browning DO Primary Care Provider [phone] Reason for Referral * Imaging (Routine) - Closed Specialty Diagnoses / Procedures Referred By Ellis smiley Referred To Contact Diagnoses Acute injury of kidney Chronic bronchitis, not otherwise specified (HCC) Gastroesophageal reflux disease Tobacco use Hypothyroidism, not otherwise specified Procedures Ultrasound renal complete Allen Last DO Phone: tel: fax: Referral ID Status Reason Start Date Expiration Date Visits Re quested Visits Authorized [id number] Closed 11/21/2020 05/20/2021 1 1 Reason for Visit * Consultation (Routine) - Closed Specialty Diagnoses / Procedures Referred By Ellis smiley Referred To Contact Nephrology Diagnoses Other specified abnormal finding of blood chemistry Manuel Browning DO [address] [place] [address] Phone: tel: fax: Allen Last DO Phone: tel: fax: Referral ID Status Reason Start Date Expiration Date V isits Requested Visits Authorized [id number] Closed Consult and Treat 11/20/2020 11/20/2021 6 6 Encounter Details Date Type Department Care Team (Late st Contact Info) Description 11/21/2020 2:00 PM CDT Office Visit [facility], [facility] [address] [facility] [address] [place] [address] Allen Last, [address] [facility] [address] [place] [address] Acute injury of kidney (HCC) (Primary Dx); Chronic bronchitis, not otherwise specified (HCC); Gastroesophageal reflux disease; Tobacco use; Hypothyroidism, not otherwise specified Social History Tobacco Use Types Packs/Day Years [...] Mass Index 21.32 11/21/2020 2:12 PM CDT documented in this encounter Progress Notes * Allen Last MD - 11/21/2020 2:00 PM CDT Images from the original note were not included. CC: Dr. Manuel Browning, DO ASSESSMENT: Acute kidney injury with picture of interstitial nephritis presumably due to celebrex and Omeprazole use. Moderate COPD GERD with HH Hypothyroidism IVDU Hx on methadone Tobacco abuse THANG PLAN: - try to stop PPI Omeprazole - kidney ultrasound at [facility] in [place]. - return with labs in 1 month SUBJECTIVE: Mr. Saravanan Lanza is a 65 y.o. WM with a PMHx of THANG with tobacco and prior IVDU, Moderate COPD, RA, OA and GERD who presents with DEEPA. He has a Scr of 1.04 mg/dL in April, up from 0.7 - 0.8 mg/dL in December and before. His more recent UA find pyuria and proteinuria. He had taken celebrex for years up until about 3 months ago. He also takes a PPI. A 12 point review of systems is otherwise negative. Past Medical History: THANG Tobacco abuse IVDU Moderate COPD RA Hypothyroidism BPH OA GERD with HH NKDA Medications: KCl 10 mEq PO Qday Tamsulosin 0.4 mg PO BID Levothyroxine 75 mCg PO Qday Sertraline 100 mg PO Qhs Clonazepam 0.5 mg PO TID PRN Methadone 140 mg PO QAM Celebrex was stopped three months ago. NSAID PRN - twice weekly Omeprazole 20 mg PO Qday Incruse Elept 62.5 mCg INH Qday Ventolin INH Q6 PRN Family History: family history is not on file. Social History: tobacco abuse and history of IVDU EXAM: BP 120/70 Pulse 68 Temp 97.3 ??F Resp 18 Ht 5' 10 (1.778 m) Wt 148 lb 9.6 oz (67.4 kg) SpO2 92% BMI 21.32 kg/m?? NAD, alert and appropriate No JVD, moist oropharynx HRRR without murmur Lungs B CTA without expiratory wheezes Abdomen benign, nontender LE without edema Skin without petechae, purpura or livido Gait normal No focal neurologic deficits RESULTS: No lab exists for component: PTHINTACT No lab exists for component: IRON SATURATION Labs 05/22/20: Cr 1.04, BUN 12, K 3.8, Bicarb 26, PSA 0.5, VitD 30, Labs 05/22/20: Hgb 9.6, wbc 7.5, plt 186, UA +tr prot, +LE Labs 04/25/20: Cr 1.7, Labs 01/09/20: Cr 0.69, Hgb 11.9, UA +2 prot, Labs 06/28/17: UA bland, CT Chest 04/25/20: RML PNA, moderate emphysema, large sliding HH. CTA chest 01/10/20: no PE. RLL PNA, emphesema, bilateral bronchiolitis. Nodular liver. Thank you for allowing me to participate in the care of your patient. Sincerely, Allen Last MD documented in this encounter Plan of Treatment Scheduled Orders Name Type Priority Associated Diagnoses Orde r Schedule Ultrasound renal complete Imaging Routine Acute injury of kidney (HCC) Chronic bronchitis, not otherwise specified (HCC) Gastroesophageal reflux disease Tobacco use Hypothyroidism, not otherwise specified Expected: 11/21/2020, Expires: 11/21/2021 CBC Lab Routine Acute injury of kidney (HCC) Chronic bronchitis, not otherwise specified (HCC) Gastroesophageal reflux disease Tobacco use Hypothyroidism, not otherwise specified Expected: 11/21/2020, Expires: 12/21/2021 PTH, intact Lab Routine Acute injury of kidney (HCC) Chronic bronchitis, not otherwise specified (HCC) Gastroesophageal reflux disease Tobacco use Hypothyroidism, not otherwise specified Expected: 11/21/2020, Expires: 12/21/2021 Renal function panel Lab Routine Acute injury of kidney (HCC) Chronic bronchitis, not otherwise specified (HCC) Gastroesophageal reflux disease Tobacco use Hypothyroidism, not otherwise specified Expected: 11/22/2020, Expires: 12/21/2021 Urinalysis with microscopic Lab Routine Acute injury of kidney (HCC) Chronic bronchitis, not otherwise specified (HCC) Gastroesophageal reflux disease Tobacco use Hypothyroidism, not otherwise specified Expected: 11/21/2020, Expires: 12/21/2021 Urine Albumin / Creatinine Ratio Lab Routine Acute injury of kidney (HCC) Chronic bronchitis, not otherwise specified (HCC) Gastroesophageal reflux disease Tobacco use Hypothyroidism, not otherwise specified Expected: 11/21/2020, Expires: 12/21/2021 Urine Protein / creatinine ratio Lab Routine Acute injury of kidney (HCC) Chronic bronchitis, not otherwise specified (HCC) Gastroesophageal reflux disease Tobacco use Hypothyroidism, not otherwise specified Expected: 11/21/2020, Expires: 12/21/2021 Vitamin D 25 hydroxy Lab Routine Acute injury of kidney (HCC) Chronic bronchitis, not otherwise specified (HCC) Gastroesophageal reflux disease Tobacco use Hypothyroidism, not otherwise specified Expected: 11/21/2020, Expires: 12/21/2021 Magnesium Lab Routine Acute injury of kidney (HCC) Chronic bronchitis, not otherwise specified (HCC) Gastroesophageal reflux disease Tobacco use Hypothyroidism, not otherwise specified Expected: 11/21/2020, Expires: 12/21/2021 Ferritin Lab Routine Acute injury of kidney (HCC) Chronic bronchitis, not otherwise specified (HCC) Gastroesophageal reflux disease Tobacco use Hypothyroidism, not otherwise specified Expected: 11/21/2020, Expires: 12/21/2021 Protein electrophoresis, serum Lab Routine Acute injury of kidney (HCC) Chronic bronchitis, not otherwise specified (HCC) Gastroesophageal reflux disease Tobacco use Hypothyroidism, not otherwise specified Expected: 11/21/2020, Expires: 12/21/2021 [place] Bar/Lambda free LT chains w/ratio Lab Routine Acute injury of kidney (HCC) Chronic bronchitis, not otherwise specified (HCC) Gastroesophageal reflux disease Tobacco use Hypothyroidism, not otherwise specified Expected: 11/21/2020, Expires: 12/21/2021 Hepatitis C antibody Lab Routine Acute injury of kidney (HCC) Chronic bronchitis, not otherwise specified (HCC) Gastroesophageal reflux disease Tobacco use Hypothyroidism, not otherwise specified Expected: 11/21/2020, Expires: 12/21/2021 Hepatitis B surface antibody Lab Routine Acute injury of kidney (HCC) Chronic bronchitis, not otherwise specified (HCC) Gastroesophageal reflux disease Tobacco use Hypothyroidism, not otherwise specified Expected: 11/21/2020, Expires: 12/21/2021 Hepatitis B core antibody, IgM Lab Routine Acute injury of kidney (HCC) Chronic bronchitis, not otherwise specified (HCC) Gastroesophageal reflux disease Tobacco use Hypothyroidism, not otherwise specified Expected: 11/21/2020, Expires: 12/21/2021 HIV Antigen and Antibody screen Lab Routine Acute injury of kidney (HCC) Chronic bronchitis, not otherwise specified (HCC) Gastroesophageal reflux disease Tobacco use Hypothyroidism, not otherwise specified Expected: 11/21/2020, Expires: 12/21/2021 Quantiferon Gold Lab Routine Acute injury of kidney (HCC) Chronic bronchitis, not otherwise specified (HCC) Gastroesophageal reflux disease Tobacco use Hypothyroidism, not otherwise specified Expected: 11/21/2020, Expires: 12/21/2021 C4 complement Lab Routine Acute injury of kidney (HCC) Chronic bronchitis, not otherwise specified (HCC) Gastroesophageal reflux disease Tobacco use Hypothyroidism, not otherwise specified Expected: 11/21/2020, Expires: 12/21/2021 C3 complement Lab Routine Acute injury of kidney (HCC) Chronic bronchitis, not otherwise specified (HCC) Gastroesophageal reflux disease Tobacco use Hypothyroidism, not otherwise specified Expected: 11/21/2020, Expires: 12/21/2021 Vitamin B12 Lab Routine Acute injury of kidney (HCC) Chronic bronchitis, not otherwise specified (HCC) Gastroesophageal reflux disease Tobacco use Hypothyroidism, not otherwise specified Expected: 11/21/2020, Expires: 12/21/2021 Sedimentation Rate Lab Routine Acute injury of kidney (HCC) Chronic bronchitis, not otherwise specified (HCC) Gastroesophageal reflux disease Tobacco use Hypothyroidism, not otherwise specified Expected: 11/21/2020, Expires: 12/21/2021 documented as of this encounter Visit Diagnoses Diagnosis Acute injury of kidney- Primary Chronic bronchitis, not otherwise specified (HCC) Gastroesophageal reflux disease Tobacco use Hypothyroidism, not otherwise specified documented in this encounter Care Teams Rockboard Lather Relationship Specialty Start Date End Date Manuel Browning DO [address] [place] [address] PCP - General Family Medicine 11/20/20 documented as of this encounter
--- OUTSIDE RECORDS SUMMARY | 2024-05-31 23:30 | XMS_ITS | Encounter Summary ---
Author Organization [facility] Address [address] [place] [address] Care Team Providers Care Machine Tack Puller Name Role Phone Mor Rodriguez MD Primary Care Provider [phone] Reason for Visit * Auth/Cert Specialty Diagnoses / Procedures Referred By Contac t Referred To Contact Diagnoses Other specified diseases of biliary tract Other specified diseases of biliary tract [K83.8] Procedures EUS Referral ID Status Reason Start Date Expiration Date Visits Re quested Visits Authorized [id number] 1 1 Encounter Details Date Type Department Care Team (Late st Contact Info) Description 04/17/2021 11:58 AM LAYUP WORKER Anesthesia Event [facility] [place] [id number] Mena Resendiz MD [address] [place] [address] Anesthesia Record Procedure Summary Procedure Name Responsible Anesthesiologist Anesthesia Start Time Anesthesia Stop Time ESOPHAGOGASTRODUODENOSCOPY ULTRASOUND EXAM LIMITED Mena Resendiz MD 04/17/21 1158 04/17/21 1225 Events Date Time Event Comment 04/17/2021 1050 1158 An Start 1158 An Start Data 1203 In Room 1205 Patient Positioned Laterally 1205 Bite Block Placed 1205 An Induction The patient was reevaluated immediately before moderate or deep sedation use and before anesthesia induction. 1205 Anesthesia Ready 1206 Proc Start 1216 Proc Fin 1220 an stop data 1221 Out of Room 1224 Handoff to RN I completed my handoff to the receiving nurse during which we: 1. Patient identified 2. Responsible provider identified 3. Pertinent medical history reviewed 4. Procedure type and surgical course discussed 5. Intraoperative anesthetic management and any significant issues discussed 6. Expectations and concerns for postop period discussed 7. Questions solicited from receiving nurse 8. Patient disposition at the time of handoff: PACU 1225 An Stop 1225 Release from care Meds Name Total lidocaine (cardiac) syringe 2 % 3 mL propofol 200 mg Lactated Ringer's (LR) infusion 400 mL * Agents Name O2 * Blood No blood administrations on file. 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 Gender Identity Not on file Sexual Orientation Not on file documented as of this encounter OR Notes * Anesthesia Postprocedure Evaluation - Traci Lamb CRNA - 04/17/2021 12:25 PM CST Patient: Saravanan Lanza Procedure Summary Date: 04/17/21 Room / Location: [facility] 06 / [facility] Anesthesia Start: 1158 Anesthesia Stop: 122 Procedure: ESOPHAGOGASTRODUODENOSCOPY ULTRASOUND EXAM LIMITED (N/A ) Diagnosis: Other specified diseases of biliary tract (Other specified diseases of biliary tract [K83.8]) Providers: Kwame Camarillo MD Responsible Provider: Mena Resendiz MD Anesthesia Type: general/TIVA ASA Status: 3 Anesthesia Type: general/TIVA Last vitals BP 127/72 Pulse 73 Temp 36.5 ??C (97.7 ??F) (Temporal) Resp 10 SpO2 95% Anesthesia Post Evaluation Patient location: GI recovery area. 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 P WORKER * Anesthesia Preprocedure Evaluation - Mena Resendiz MD - 04/17/2021 10:48 AM CST Images from the original note were not included. Anesthesia Evaluation Saravanan Lanza is a 65 y.o. male w/ h/o drug abuse Procedure(s): EUS Pre-Op Diagnosis Codes: * Other specified diseases of biliary tract [K83.8] HISTORY Past Medical History Neurological + Psychiatric history - depression Respiratory + COPD Hepatic / Heme + Liver disease - cirrhosis. Musculoskeletal/Pain + Chronic pain Endocrine / Other + Thyroid disease - hypothyroidism Functional Capacity Functional capacity: ambulates with assistance only Review of Systems + chronic pain Patient Active Problem List Diagnosis ??? Closed fracture of right inferior pubic ramus (CMS/HCC) (HCC) ??? Closed fracture of right superior pubic ramus (CMS/HCC) (HCC) ??? Calculus of urinary bladder ??? Unspecified urinary incontinence ??? Avulsion of skin of right thumb without complication ??? Immunization, tetanus-diphtheria ??? Sepsis (HCC) ??? Pneumonia ??? COPD without exacerbation (CMS/HCC) (HCC) ??? Hyponatremia ??? Diarrhea ??? Altered mental status ??? Cirrhosis of liver without ascites (CMS/HCC) (HCC) ??? Legionnaire's disease (CMS/HCC) (HCC) Past Medical History: Diagnosis Date ??? Depression ??? Emphysema of lung (CMS/HCC) ??? Infectious viral hepatitis ??? Kidney stone ??? Melena Past Surgical History: Procedure Laterality Date ??? COLONOSCOPY 2008 Allergies Allergen Reactions ??? Narcan [Naloxone] Other (See comments) Patient indicating he cannot have narcan no matter what (methodone prescription) Taking? 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 Social History Tobacco Use Smoking Status Former Smoker Smokeless Tobacco Current User Tobacco Comment e cig Substance and Sexual Activity Alcohol Use Not Currently Substance and Sexual Activity Drug Use Not Currently No family history on file. There were no vitals filed for this visit. PT: No results found for requested labs within last 720 hours. INR: No results found for requested labs within last 720 hours. APTT: No results found for requested labs within last 720 hours. Hgb A1C: No results found for requested labs within last 720 hours. CBC RBC: No results found for requested labs within last 720 hours. RDW: No results found for requested labs within last 720 hours. MCHC: No results found for requested labs within last 720 hours. MCH: No results found for requested labs within last 720 hours. MCV: No results found for requested labs within last 720 hours. Hct: No results found for requested labs within last 720 hours. Hgb: No results found for requested labs within last 720 hours. WBC: No results found for requested labs within last 720 hours. MPV: No results found for requested labs within last 720 hours. Platelets: No results found for requested labs within last 720 hours. RDW CV: No results found for requested labs within last 720 hours. RDW Sd: No results found for requested labs within last 720 hours. BMP Glucose: No results found for requested labs within last 720 hours. Calcium: No results found for requested labs within last 720 hours. Sodium: No results found for requested labs within last 720 hours. Potassium: No results found for requested labs within last 720 hours. CO2: No results found for requested labs within last 720 hours. Chloride: No results found for requested labs within last 720 hours. BUN: No results found for requested labs within last 720 hours. Creatinine: No results found for requested labs within last 720 hours. DOS Physical Exam Medical history, medications, and allergies reviewed. Attestation: This PAT evaluation 04/17/2021. Airway Exam: Mallampati: II Cervical ROM: FROM TM distance: >4 Cardiovascular Exam: Rate: regular Rhythm: regular Pulmonary Exam: LCTA, bilat EENT Exam: trachea midline Dental Exam: Otherwise appears intact, upper dentures and lower dentures Anesthesia Plan ASA 3 My patient is approved for the Anesthesia Controlled Medication protocol when under care of a SUPERVISOR ROSE GRADING Planned anesthesia: General/TIVA Team communication plan: mask Induction: Induction: intravenous. Postoperative Plan: No plan for postoperative opioid use. No postoperative mechanical ventilation intended. Patient's planned disposition post procedure is Outpatient. Informed Consent: Discussed plan with SUPERVISOR ROSE GRADING. Anesthesia plan and risks discussed with patient. Plan and Consent Comments: Backup plan is a general anesthetic with or without an endotracheal tube or LMA as required Consent and Attending signature: I and/or my designee have discussed the anesthesia plan, benefits, possible alternatives, parental presence at time of induction (if indicated), and clinically relevant risks that may include dental injury, unintentional awareness, and/or other complications. The patient and/or parent/legal guardian understand, and agree to proceed. All questions answered. P WORKER P WORKER documented in this encounter Plan of Treatment Not on file documented as of this encounter Visit Diagnoses Not on filedocumented in this encounter Administered Medications Inactive Administered Medications - up to 3 most recent administrations Medication Order MAR Action Action Date Dose Rate Site Lactated Ringer's (LR) infusion 30 mL/hr, intravenous, Continuous, Starting on Thu04/17/21 at 1145 Restarted 04/17/2021 12:17 PM LAYUP WORKER Rate/Dose Verify 04/17/2021 11:58 AM LAYUP WORKER 30 mL/ hr New Bag 04/17/2021 11:12 AM LAYUP WORKER 30 mL/hr 30 mL/hr lidocaine (cardiac) (XYLOCAINE) preservative free injection intravenous, As needed, Starting on Thu04/17/21 at 1205, Anesthesia Intra-op, Indications: Ventricular ArrhythmiasIndications:Ventricular Arrhythmias Given 04/17/2021 12:05 PM LAYUP WORKER 3 mL propofoL (DIPRIVAN) 10 mg/mL IV intravenous, As needed, Starting on Thu04/17/21 at 1205, Anesthesia Intra-op Given 04/17/2021 12:10 PM LAYUP WORKER 100 m g Given 04/17/2021 12:05 PM LAYUP WORKER 100 mg documented in this encounter Care Teams Machine Tack Puller Relationship Specialty Start Date End Date Mor Rodriguez MD PCP - General Family Practice 04/17/21 documented as of this encounter
--- OUTSIDE RECORDS SUMMARY | 2024-05-31 23:30 | XMS_ITS | Encounter Summary ---
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 MIXER documented in this encounter Plan of Treatment Not on file documented as of this encounter Visit Diagnoses Not on filedocumented in this encounter Care Teams Fashion Stylist Relationship Specialty Start Date End Date Manuel Browning DO PCP - General 05/14/20 04/16/21 documented as of this encounter
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
--- OUTSIDE RECORDS SUMMARY | 2024-05-31 23:30 | XMS_ITS | Encounter Summary ---
Author Organization [facility] Healthcare Address [address] [place] [address] Care Team Providers Care Fire Officer Name Role Phone Mitchell Gutierrez DO Primary Care Provider [phone] [phone] Reason for Referral * Diagnostic Imaging (Routine) - Closed Specialty Diagnoses / Procedures Referred By Ellis smiley Referred To Contact Radiology Diagnoses Abnormal weight loss Procedures CT Abdomen Pelvis WO Contrast Mitchell Gutierrez DO Phone: tel: fax: [address] [phone] Referral ID Status Reason Start Date Expiration Date Visits Re quested Visits Authorized [id number] Closed 05/11/2020 06/10/2021 1 1 WIG HACKLER Reason for Visit * Diagnostic Imaging (Routine) - Closed Specialty Diagnoses / Procedures Referred By Ellis smiley Referred To Contact Radiology Diagnoses Abnormal weight loss Procedures CT Abdomen Pelvis WO Contrast Mitchell Gutierrez DO Phone: tel: fax: [address] [phone] Referral ID Status Reason Start Date Expiration Date Visits Re quested Visits Authorized [id number] Closed 05/11/2020 06/10/2021 1 1 Encounter Details Date Type Department Care Team (Latest Contact Info) Description 05/22/2020 7:00 AM DOLL WIG HACKLER - 05/22/2020 7:23 AM DOLL WIG HACKLER Hospital Encounter [facility] [address] [place] [id number] Mitchell Gutierrez DO [address] [place] [address] Abnormal weight loss Discharge Disposition: Discharge to home or self [...] on file Legal Sex Male 11:14 AM DOLL WIG HACKLER Gender Identity Not on file Sexual Orientation [...] 1 tablet (75 mcg total) by mouth 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 ??Large, debris-filled hiatal hernia present. ??Scattered [...] Felix Galvez M.D. Narrative 05/22/2020 8:28 AM DOLL WIG HACKLER EXAMINATION: CT ABDOMEN PELVIS WO CONTRAST ORDERING [...] DO IMG CT PROCEDURES Final R esult documented in this encounter Visit Diagnoses Diagnosis Abnormal weight loss Loss of weight documented in this encounter Care Teams Fire Officer Relationship Specialty Start Date End Date Mitchell Gutierrez DO PCP - General 05/14/20 04/16/21 documented as of this encounter
--- OUTSIDE RECORDS SUMMARY | 2024-05-31 23:30 | XMS_ITS | Encounter Summary ---
Author Organization [facility] Healthcare Address [address] [place] [address] Care Team Providers Care Kiosk Sales Representative Name Role Phone Mor Rodriguez MD Primary Care Provider [phone] [phone] Reason for Visit * MRI/CAT/PET Scan (Routine) - Closed Specialty Diagnoses / Procedures Referred By Contac t Referred To Contact Radiology Diagnoses Disease of biliary tract, unspecified Procedures MRI Abdomen MRCP W WO Contrast MRI Abdomen MRCP W WO Contrast Incl 3D MRI Abdomen MRCP WO Contrast Gato Renteria MD [address] [facility] [place] [address] Phone: tel: fax: [address] [phone] Referral ID Status Reason Start Date Expiration Date Visits Re quested Visits Authorized [id number] Closed 06/10/2022 12/07/2022 1 1 Encounter Details Date Type Department Care Team (Latest Contact Info) Description 06/23/2022 11:38 AM MACHINE HEEL SEAT LASTER - 06/23/2022 11:59 PM MACHINE HEEL SEAT LASTER Hospital Encounter [facility] [address] [place], [place] [id number] Disease of biliary tract, unspecified Discharge Disposition: Discharge to home or self [...] on file Legal Sex Male 11:14 AM MACHINE HEEL SEAT LASTER Gender Identity Not on file Sexual Orientation [...] 1 tablet (75 mcg total) by mouth director blood bank before breakfast 30 tablet 2 01/18/2020 mirtazapine [...] Procedure Name Priority Date/Time Associated Diagnosis Comments MRI ABDOMEN MRCP W WO CONTRAST Schedule Routine, Read Routine (OP Routine) 06/23/2022 2:35 PM MACHINE HEEL SEAT LASTER Disease of biliary tract, unspecified POCT CREATININE FOR CONTRAST EVALUATION Routine 06/23/2022 1:15 PM MACHINE HEEL SEAT LASTER documented in this encounter Results * MRI Abdomen MRCP W WO Contrast (06/23/2022 2:35 PM MACHINE HEEL SEAT LASTER) Anatomical Region Laterality Modality Body N/A Magnetic Resonan ce 07/28/2022 1:18 PM MACHINE HEEL SEAT LASTER Addenda Addendum by Zee Ross MD on 07/28/2022 1:18 PM MACHINE HEEL SEAT LASTER The following changes should be made to the dictation: EXAMINATION: 1. MAGNETIC RESONANCE IMAGING OF THE ABDOMEN WITH AND WITHOUT CONTRAST 2. THREE DIMENSIONAL RECONSTRUCTION OF THE BILIARY TREE AND PANCREATIC DUCT TECHNIQUE: Magnetic resonance imaging of the abdomen was performed prior to and following the uneventful administration of intravenous Gadolinium contrast. The raw data was processed on the scanner by the technologist for 3 dimensional reconstructions of the intrahepatic ducts, extrahepatics ducts, and pancreatic duct. Dictated by: Tunde Pérez MD The radiology attending physician has personally reviewed this study, and had reviewed and/or edited this written report and agrees with it. Electronically signed by: Zee Ross M.D. Impressions 06/23/2022 3:30 PM MACHINE HEEL SEAT LASTER 1. ??Overall likely unchanged dilatation of the common bile duct and prominence of the left intrahepatic bile ducts dating back to 2019 without obstructing stone or stricture. 2. ??Large hiatal hernia. Dictated by: Tunde Pérez MD The radiology attending physician has personally reviewed this study, and had reviewed and/or edited this written report and agrees with it. Electronically signed by: Zee Ross M.D. Narrative 06/23/2022 3:30 PM MACHINE HEEL SEAT LASTER EXAMINATION: MAGNETIC RESONANCE IMAGING OF THE ABDOMEN WITH AND WITHOUT CONTRAST HISTORY: 67-year-old man with emphysema and hepatitis C TECHNIQUE: Magnetic resonance imaging of the abdomen was performed prior to and following the uneventful administration of intravenous Gadolinium contrast. Protocol: Liver MRCP Contrast: Contrast: Eovist 10 mL COMPARISON: There is an is made to CT from 05/22/2020 FINDINGS: Liver: The liver is small. ??No surface nodularity or focal iron deposition. - Bile ducts: There is dilatation of the common bile duct measuring up to 1.8 cm, relatively unchanged when correlated with CT from 05/22/2020. ??There is asymmetric enlargement of the intrahepatic biliary system. ??No obstructing stone or focal stricture is present. - Focal liver lesions: No suspicious focal hepatic lesion. - Vasculature: The main portal vein is patent. Gallbladder: Normal Pancreas: Normal parenchymal appearance. ??The main pancreatic duct measures up to 5 mm. Spleen: Normal Adrenals: Normal Kidneys: The kidneys are mildly atrophic. ??No hydronephrosis. Other Findings: A large hiatal hernia is present in organoaxial orientation. ??No lymphadenopathy. ??Degenerative changes present within the thoracolumbar spine. Multiple bladder diverticula are present. Procedure Note Zee Ross MD - 06/23/2022 EXAMINATION: MAGNETIC RESONANCE IMAGING OF THE ABDOMEN WITH AND WITHOUT CONTRAST HISTORY: 67-year-old man with emphysema and hepatitis C TECHNIQUE: Magnetic resonance imaging of the abdomen was performed prior to and following the uneventful administration of intravenous Gadolinium contrast. Protocol: Liver MRCP Contrast: Contrast: Eovist 10 mL COMPARISON: There is an is made to CT from 05/22/2020 FINDINGS: Liver: The liver is small. No surface nodularity or focal iron deposition. - Bile ducts: There is dilatation of the common bile duct measuring up to 1.8 cm, relatively unchanged when correlated with CT from 05/22/2020. There is asymmetric enlargement of the intrahepatic biliary system. No obstructing stone or focal stricture is present. - Focal liver lesions: No suspicious focal hepatic lesion. - Vasculature: The main portal vein is patent. Gallbladder: Normal Pancreas: Normal parenchymal appearance. The main pancreatic duct measures up to 5 mm. Spleen: Normal Adrenals: Normal Kidneys: The kidneys are mildly atrophic. No hydronephrosis. Other Findings: A large hiatal hernia is present in organoaxial orientation. No lymphadenopathy. Degenerative changes present within the thoracolumbar spine. Multiple bladder diverticula are present. IMPRESSION: 1. Overall likely unchanged dilatation of the common bile duct and prominence of the left intrahepatic bile ducts dating back to 2019 without obstructing stone or stricture. 2. Large hiatal hernia. Dictated by: Tunde éPrez MD The radiology attending physician has personally reviewed this study, and had reviewed and/or edited this written report and agrees with it. Electronically signed by: Zee Ross M.D. us Gato Renteria MD IMG MRI PROCEDURES Edited Result - Final * POCT creatinine for contrast evaluation (06/23/2022 1:15 PM MACHINE HEEL SEAT LASTER) Creatinine, POC 1.3 0.6 - 1.3 mg/dL Blood 06/23/2022 1:15 PM MACHINE HEEL SEAT LASTER us Gato Renteria MD POINT OF CARE TEST ORDERABLES Fi nal Result documented in this encounter Visit Diagnoses Diagnosis Disease of biliary tract, unspecified documented in this encounter Administered Medications Inactive Administered Medications - up to 3 most recent administrations Medication Order MAR Action Action Date Dose Rate Site gadoxetate (EOVIST) injection 10 mL 10 mL, intravenous, Once in imaging, contrast, Starting on 06/23/22 at 1447, For 1 dose Contrast Given 06/23/2022 2:48 PM MACHINE HEEL SEAT LASTER 10 mL documented in this encounter Orders Medications Ordered That Carloz ht Not Have Been Administered Count Last Ordered Date First Ordered Date gadoxetate (EOVIST) injection 10 mL 1 06/23 documented in this encounter Care Teams Kiosk Sales Representative Relationship Specialty Start Date End Date Mor Rodriguez MD PCP - General Family Practice 04/17/21 documented as of this encounter
--- OUTSIDE RECORDS SUMMARY | 2024-05-31 23:30 | XMS_ITS | Encounter Summary ---
Author Organization [facility] [employer] [facility] Address [address] [place] [phone] Phone Care Team Providers Care Rock Breaker Name Role Phone Manuel Browning DO Primary Care Provider [phone] Encounter Details Date Type Department Care Team (Late st Contact Info) Description 11/22/2020 Documentation Only [place] [address] [phone] Kimberly Kaplan [facility] [address] [facility] [address] [place] [address] Social History Tobacco Use Types [...] on filedocumented in this encounter Care Teams Rock Breaker Relationship Specialty Start Date End Date Manuel Browning DO [address] [place] [address] PCP - General Family Medicine 11/20/20 documented as of this encounter
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
--- OUTSIDE RECORDS SUMMARY | 2024-05-31 23:30 | XMS_ITS | Encounter Summary ---
Author Organization [facility] Healthcare Address [address] [place] [address] Care Team Providers Care Pattern Room Attendant Name Role Phone Mor Rodriguez MD Primary Care Provider [phone] Reason for Visit * Auth/Cert Specialty Diagnoses / Procedures Referred By Contac t Referred To Contact Diagnoses Other specified diseases of biliary tract Other specified diseases of biliary tract [K83.8] Procedures EUS Referral ID Status Reason Start Date Expiration Date Visits Re quested Visits Authorized [id number] 1 1 Encounter Details Date Type Department Care Team (Latest Contact Info) Description 04/17/2021 11:00 AM PIZZA MAKER - 04/17/2021 11:30 AM PIZZA MAKER Surgery [facility] [address] [place] [id number] Kwame Camarillo MD [address] [facility] [address] [place] [address] ESOPHAGOGASTRODUODENOSCOPY ULTRASOUND EXAM LIMITED Surgery Details Date/Time Status Location OR Service Patient Class Case Class Case Type Trauma Case? 04/17/2021 11:00 AM Posted [facility] ENDOSCOPY GI 06 Gastroenterology Outpatient Elective Panel 1 Procedure LRB Anes Op Region Wound Class Comments ESOPHAGOGASTRODUODENOSCOPY U LTRASOUND EXAM LIMITED N/A Choice Surgeon Surgeon Role Service Panel Kwame Camarillo MD Primary Gastroenterology 1 documented in this [...] on file Legal Sex Male 11:14 AM PIZZA MAKER Gender Identity Not on file Sexual Orientation Not on file documented as of this encounter Last Filed Vital Signs Vital Sign Reading Time Taken Comments Blood Pressure 127/72 04/17/2021 10:58 AM PIZZA MAKER Pulse 73 04/17/2021 10:58 AM PIZZA MAKER Temperature 36.5 ??C (97.7 ??F) 04/17/2021 11:[address] Respiratory Rate 10 04/17/2021 10:58 AM PIZZA MAKER Oxygen Saturation 95% 04/17/2021 10:58 AM PIZZA MAKER Inhaled Oxygen Concentration - - Weight 63.5 kg (140 lb) 04/17/2021 10:58 AM PIZZA MAKER Height 179.1 cm (5' 10.5 ) 04/17/2021 10:[address] Body Mass Index 19.8 04/17/2021 10:58 AM PIZZA MAKER documented in this encounter Medications at Time [...] 1 tablet (75 mcg total) by mouth client service executive before breakfast 30 tablet 2 01/18/2020 mirtazapine [...] ENDOSCOPY PRE-PROCEDURE MEDICAL HISTORY & PHYSICAL Saravanan Vargasludwin 65 y.o. male There were no vitals [...] 1 tablet (75 mcg total) by mouth client service executive before breakfast 30 tablet 2 ??? mirtazapine [...] dilation Procedure Planned: EUS Kwame Camarillo MD A MAKER documented in this encounter Procedure Notes * Kwame Camarillo MD - 04/17/2021 11:48 AM CSTAssociated Order(s): EUS ENDOSCOPY LAB Patient Name: Saravanan Lanza Procedure Date: 04/17/2021 11:48 AM Admit Type: Outpatient Room: [facility] 6 Date of : 1955 Instrument Name: [id number] Gender: Male Note Status: Wig Sales Consultant Override Procedure: Upper EUS Indications: Common bile [...] 04/17/2021 11:48 AM Scope In: Scope Out: A MAKER A MAKER documented in this encounter Plan of Treatment Pending Results Name Type Priority Associated Diagnoses Date /Time US Endoscopy Endo Imaging Procedure IP Routine Other specified diseases of biliary tract 04/17/2021 12:21 PM PIZZA MAKER documented as of this encounter Procedures Procedure Name Priority Date/Time Associated Diagnosis Comments US ENDOSCOPIC IP Routine 04/17/2021 12:21 PM PIZZA MAKER Other specified diseases of biliary tract ESOPHAGOGASTRODUODENOSCOPY ULTRASOUND EXAM LIMITED 04/17/2021 12:03 PM PIZZA MAKER Other specified diseases of biliary tract EUS 04/17/2021 11:48 AM PIZZA MAKER documented in this encounter Results * EUS (04/17/2021 11:48 AM PIZZA MAKER) Anatomical Region Laterality Modality Other Narrative Procedure Note Kwame Camarillo MD - 04/17/2021 11:48 AM CST ENDOSCOPY LAB Patient Name: Saravanan Lanza Procedure Date: 04/17/2021 11:48AM Admit Type: Outpatient Room: [facility] 6 Date of : 1955 Instrument Name: [id number] Gender: Male Note Status: Wig Sales Consultant Override Procedure: Upper EUS Indications: Common bile [...] 04/17/2021 11:48 AM Scope In: Scope Out: us Kwame Camarillo MD ENDOSCOPY PROCEDURES Edited R esult - Final documented in this encounter Visit Diagnoses Diagnosis Other specified diseases of biliary tract Other specified diseases of biliary tract documented in this encounter Administered Medications Inactive Administered Medications - up to 3 most recent administrations Medication Order MAR Action Action Date Dose Rate Site Lactated Ringer's (LR) infusion 30 mL/hr, intravenous, Continuous, Starting on Thu04/17/21 at 1145 Restarted 04/17/2021 12:17 PM PIZZA MAKER Rate/Dose Verify 04/17/2021 11:58 AM PIZZA MAKER 30 mL/ hr New Bag 04/17/2021 11:12 AM PIZZA MAKER 30 mL/hr 30 mL/hr sodium chloride 0.9% [...] Recently Administered Medications Times are shown in PIZZA MAKER. Scheduled Medication Order 04/15/2021 04/16/2021 04/17/2021 sodium [...] 04/17/2021 documented in this encounter Care Teams Pattern Room Attendant Relationship Specialty Start Date End Date Mor Rodriguez MD PCP - General Family Practice 04/17/21 documented as of this encounter
--- OUTSIDE RECORDS SUMMARY | 2024-05-31 23:30 | XMS_ITS | Encounter Summary ---
Author Organization [facility] Healthcare Address [address] [place] [address] Care Team Providers Care Transportation Coordinator Name Role Phone Mor Rodriguez MD Primary Care Provider [phone] Encounter Details Date Type Department Care Team (Latest Contact Info) Description 11/04/2021 1:29 PM CDT - 11/04/2021 2:38 PM CDT Hospital Encounter [facility] Discharge Disposition: Discharge to home or self [...] on file Legal Sex Male 11:14 AM MECHANICAL EXPERT Gender Identity Not on file Sexual Orientation [...] 1 tablet (75 mcg total) by mouth food service kitchen supervisor before breakfast 30 tablet 2 01/18/2020 mirtazapine [...] on filedocumented in this encounter Care Teams Transportation Coordinator Relationship Specialty Start Date End Date Mor Rodriguez MD PCP - General Family Practice 04/17/21 documented as of this encounter
--- OUTSIDE RECORDS SUMMARY | 2024-05-31 23:31 | XMS_ITS | Encounter Summary ---
Author Organization [facility] Healthcare Address [address] [place] [address] Care Team Providers Care Deburrer Machine Name Role Phone Geovanni Saunders HEAD LOADER Primary Care Provider + Encounter Details Date Type Department Care Team (Latest Contact Info) Description 06/28/2017 9:46 PM DIGITAL SPECIALIST - 06/28/2017 11:59 PM DIGITAL SPECIALIST Hospital Encounter [facility] Discharge Disposition: Discharge to home or self care Social History Tobacco Use Types Packs/Day Years Used Date Smoking Tobacco: Former Smokeless Tobacco: Never Alcohol Use Standard Drinks/Week Comments Yes 0 (1 standard drink = 0.6 oz pur e alcohol) Sex and Gender Information Value Date Recorded Sex Assigned at Not on file Legal Sex Male 11:14 AM DIGITAL SPECIALIST Gender Identity Not on file Sexual Orientation Not on file documented as of this encounter Medications at Time of Discharge albuterol HFA (PROVENTIL HFA,VENTOLIN HFA) 90 mcg/actuation inhaler Inhale 2 puffs every 4 (four) hours as needed tamsulosin (FLOMAX) 0.4 mg capsule,extended release 24hr Take 0.4 mg by mouth 2 (two) times a day ALPRAZolam (XANAX) 1 mg tablet 3 06/10/2017 01/10/2020 amoxicillin-clavu lanate (AUGMENTIN) 875-125 mg per tablet 06/19/2016 11/24/2017 cetirizine (ZyrTEC) 10 mg tablet Take 10 mg by mouth. 11/24/2017 finasteride (PROSCAR) 5 mg tablet 06/23/2017 11/24/2017 HYDROcodone-aceta minophen (NORCO) 5-325 mg per tabletIndications :Pain 0 06/12/2017 11/24/2017 methadone (DOLOPHINE) 10 mg tablet Take 140 mg by mouth, 01/10/2020 mometasone (ASMANEX HFA) 200 mcg/actuation HFA aerosol inhaler 05/28/2016 8 pediatric multivitamin-iron tablet,chewable Take by mouth. 01/10/2020 tiZANidine (ZANAFLEX) 4 mg tablet Take 4 mg by mouth. 04/05/2019 documented as of this encounter Discharge Disposition Disposition Code Departure Means Destination Discharge to home or self care documented in this encounter Plan of Treatment Not on file documented as of this encounter Visit Diagnoses Not on filedocumented in this encounter Care Teams Deburrer Machine Relationship Specialty Start Date End Date Geovanni Saunders NP [address] [place] [address] [address] [place] [address] PCP - General 01/02/17 04/28/18 documented as of this encounter
--- OUTSIDE RECORDS SUMMARY | 2024-05-31 23:31 | XMS_ITS | Encounter Summary ---
Author Organization [facility] Healthcare Address [address] [place] [address] Care Team Providers Care Containers Sales Representative Name Role Phone Geovanni Saunders DIETARY SERVICES DIRECTOR Primary Care Provider + Encounter Details Date Type Department Care Team (Latest Contact Info) Description 06/12/2017 12:25 PM ENGINEERING OPERATOR - 06/12/2017 11:59 PM ENGINEERING OPERATOR Hospital Encounter [facility] [address] [place] [address] Geovanni Saunders, JUANJOSE [address] [place] [id number] Fall from ladder, initial encounter Discharge Disposition: Discharge to home or self care Social History Tobacco Use Types Packs/Day Years Used Date Smoking Tobacco: Never Assessed Sex and Gender Information Value Date Recorded Sex Assigned at Not on file Legal Sex Male 11:14 AM ENGINEERING OPERATOR Gender Identity Not on file Sexual Orientation Not on file documented as of this encounter Medications at Time of Discharge Medication Sig Dispense Quantity Refills Last Filled Start D ate End Date ALPRAZolam (XANAX) 1 mg tablet 3 06/10/2017 01/10/2020 amoxicillin-clavulana te (AUGMENTIN) 875-125 mg per tablet 06/19/201607/2017 HYDROcodone-acetamino phen (NORCO) 5-325 mg per tabletIndications:Norma n 0 06/12/2017 11/24/2017 mometasone (ASMANEX HFA) 200 mcg/actuation HFA aerosol inhaler 05/28/2016 8 documented as of this encounter Discharge Disposition Disposition Code Departure Means Destination Discharge to home or self care documented in this encounter Plan of Treatment Not on file documented as of this encounter Procedures Procedure Name Priority Date/Time Associated Diagnosis Comments XR HIP RIGHT W PELVIS 2 OR 3 VIEWS Schedule Routine, Read Routine (OP Routine) 06/12/2017 12:56 PM ENGINEERING OPERATOR Fall from ladder, initial encounter XR FEMUR RIGHT 2 OR MORE VIEWS Schedule Routine, Read Routine (OP Routine) 06/12/2017 12:56 PM ENGINEERING OPERATOR Fall from ladder, initial encounter documented in this encounter Results * XR Femur Right 2 or More Views (06/12/2017 12:56 PM ENGINEERING OPERATOR) Anatomical Region Laterality Modality Lower Extremities, Thigh, Femur Right Computed Radiography Impressions 06/12/2017 2:07 PM ENGINEERING OPERATOR 1. ??Right superior and inferior pubic ramus fractures. 2. ??Moderate right hip degenerative change. 3. ??Minimal right knee degenerative change. 4. ??Extensive arteriosclerosis. Results called to Geovanni Saunders NP, by RT Sara, on 06/12/2017 at 1357 hours. Critical result message with acuity significant has been communicated to ordering provider via the [employer] Critical Result tracking system. Status of follow up communication is complete. Electronically signed by: Negrito Pizarro Jr., M.D. CRITICAL RESULT ACUITY^SIGNIFICANT CRITICALITY STATUS^CLOSED Narrative 06/12/2017 2:07 PM ENGINEERING OPERATOR XR HIP RIGHT 2 OR 3 VIEWS W PELVIS, XR FEMUR RIGHT 2 OR MORE VIEWS HISTORY: Fall from ladder. COMPARISON: CT abdomen and pelvis on 01/07/2017. ??KUB on 10/13/2013. VIEWS: AP pelvis to include both hips; AP and frog-leg lateral views of right hip to include proximal femur; AP and lateral views of distal femur to include knee. FINDINGS: An oblique fracture of the right superior pubic ramus extending to the right superior edge of the symphysis pubis is noted. 2nd fracture may be present at the junction of the inferior pubic ramus with the body of the pubic bone. ??No other pelvic fracture is seen. ??Articulations are intact at hip joints bilaterally. ??There is superior narrowing of the right hip joint with mild sclerosis and subchondral cystic changes. ??No significant left hip degenerative change is seen. ??No other fracture, dislocation or bone destruction is identified. ??Only minimal degenerative changes are seen at the right knee. ??Arterial sclerotic calcifications are noted. ??Surgical clips are present at the pelvic floor, attributed to prostatectomy. No fracture, dislocation or bone destruction is seen. ??No soft tissue abnormality is seen. Procedure Note Negrito Pizarro MD - 06/12/2017 XR HIP RIGHT 2 OR 3 VIEWS W PELVIS, XR FEMUR RIGHT 2 OR MORE VIEWS HISTORY: Fall from ladder. COMPARISON: CT abdomen and pelvis on 01/07/2017. KUB on 10/13/2013. VIEWS: AP pelvis to include both hips; AP and frog-leg lateral views of right hip to include proximal femur; AP and lateral views of distal femur to include knee. FINDINGS: An oblique fracture of the right superior pubic ramus extending to the right superior edge of the symphysis pubis is noted. 2nd fracture may be present at the junction of the inferior pubic ramus with the body of the pubic bone. No other pelvic fracture is seen. Articulations are intact at hip joints bilaterally. There is superior narrowing of the right hip joint with mild sclerosis and subchondral cystic changes. No significant left hip degenerative change is seen. No other fracture, dislocation or bone destruction is identified. Only minimal degenerative changes are seen at the right knee. Arterial sclerotic calcifications are noted. 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 No fracture, dislocation or bone destruction is seen. No soft tissue abnormality is seen. IMPRESSION: 1. Right superior and inferior pubic ramus fractures. 2. Moderate right hip degenerative change. 3. Minimal right knee degenerative change. 4. Extensive arteriosclerosis. Results called to Geovanni Saunders NP, by RT Sara, on 06/12/2017 at 1357 hours. Critical result message with acuity significant has been communicated to ordering provider via the [employer] Critical Result tracking system. Status of follow up communication is complete. Electronically signed by: Negrito Pizarro Jr., M.D. CRITICAL RESULT ACUITY^SIGNIFICANT CRITICALITY STATUS^CLOSED Geovanni Saunders DIETARY SERVICES DIRECTOR IMG XR PROCEDURES Final Result * XR Hip Right 2 or 3 Views W Pelvis (06/12/2017 12:56 PM ENGINEERING OPERATOR) Anatomical Region Laterality Modality Lower Extremities, Hip, Pelvis Right C omputed Radiography Impressions 06/12/2017 2:07 PM ENGINEERING OPERATOR 1. ??Right superior and inferior pubic ramus fractures. 2. ??Moderate right hip degenerative change. 3. ??Minimal right knee degenerative change. 4. ??Extensive arteriosclerosis. Results called to Geovanni Saunders NP, by Serena Reynaga RT, on 06/12/2017 at 1357 hours. Critical result message with acuity significant has been communicated to ordering provider via the [employer] Critical Result tracking system. Status of follow up communication is complete. Electronically signed by: Negrito Pizarro Jr., M.D. CRITICAL RESULT ACUITY^SIGNIFICANT CRITICALITY STATUS^CLOSED Narrative 06/12/2017 2:07 PM ENGINEERING OPERATOR XR HIP RIGHT 2 OR 3 VIEWS W PELVIS, XR FEMUR RIGHT 2 OR MORE VIEWS HISTORY: Fall from ladder. COMPARISON: CT abdomen and pelvis on 01/07/2017. ??KUB on 10/13/2013. VIEWS: AP pelvis to include both hips; AP and frog-leg lateral views of right hip to include proximal femur; AP and lateral views of distal femur to include knee. FINDINGS: An oblique fracture of the right superior pubic ramus extending to the right superior edge of the symphysis pubis is noted. 2nd fracture may be present at the junction of the inferior pubic ramus with the body of the pubic bone. ??No other pelvic fracture is seen. ??Articulations are intact at hip joints bilaterally. ??There is superior narrowing of the right hip joint with mild sclerosis and subchondral cystic changes. ??No significant left hip degenerative change is seen. ??No other fracture, dislocation or bone destruction is identified. ??Only minimal degenerative changes are seen at the right knee. ??Arterial sclerotic calcifications are noted. ??Surgical clips are present at the pelvic floor, attributed to prostatectomy. No fracture, dislocation or bone destruction is seen. ??No soft tissue abnormality is seen. Procedure Note Negrito Pizarro MD - 06/12/2017 XR HIP RIGHT 2 OR 3 VIEWS W PELVIS, XR FEMUR RIGHT 2 OR MORE VIEWS HISTORY: Fall from ladder. COMPARISON: CT abdomen and pelvis on 01/07/2017. KUB on 10/13/2013. VIEWS: AP pelvis to include both hips; AP and frog-leg lateral views of right hip to include proximal femur; AP and lateral views of distal femur to include knee. FINDINGS: An oblique fracture of the right superior pubic ramus extending to the right superior edge of the symphysis pubis is noted. 2nd fracture may be present at the junction of the inferior pubic ramus with the body of the pubic bone. No other pelvic fracture is seen. Articulations are intact at hip joints bilaterally. There is superior narrowing of the right hip joint with mild sclerosis and subchondral cystic changes. No significant left hip degenerative change is seen. No other fracture, dislocation or bone destruction is identified. Only minimal degenerative changes are seen at the right knee. Arterial sclerotic calcifications are noted. 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 No fracture, dislocation or bone destruction is seen. No soft tissue abnormality is seen. IMPRESSION: 1. Right superior and inferior pubic ramus fractures. 2. Moderate right hip degenerative change. 3. Minimal right knee degenerative change. 4. Extensive arteriosclerosis. Results called to Geovanni Saunders NP, by RT Sara, on 06/12/2017 at 1357 hours. Critical result message with acuity significant has been communicated to ordering provider via the [employer] Critical Result tracking system. Status of follow up communication is complete. Electronically signed by: Negrito Pizarro Jr., M.D. CRITICAL RESULT ACUITY^SIGNIFICANT CRITICALITY STATUS^CLOSED Geovanni Saunders NP IMG XR PROCEDURES Final Result documented in this encounter Visit Diagnoses Diagnosis Fall from ladder, initial encounter documented in this encounter Care Teams Containers Sales Representative Relationship Specialty Start Date End Date Geovanni Saunders NP [address] [place] [address] [address] [place] [address] PCP - General 01/02/17 04/28/18 documented as of this encounter
--- OUTSIDE RECORDS SUMMARY | 2024-05-31 23:31 | XMS_ITS | Encounter Summary ---
Author Organization [facility] Address [address] [place] [address] Care Team Providers Care Programming Internship Name Role Phone Geovanni Saunders NP Primary Care Provider + Encounter Details Date Type Department Care Team (Latest Contact Info) Description 07/21/2017 10:40 AM HOSPITAL RECRUITER - 07/21/2017 11:59 PM HOSPITAL RECRUITER Hospital Encounter [facility] Orthopedics and Sports Medicine [address] [phone] Discharge Disposition: Discharge to home or self care Social History Tobacco Use Types Packs/Day Years Used Date Smoking Tobacco: Former Smokeless Tobacco: Never Alcohol Use Standard Drinks/Week Comments Yes 0 (1 standard drink = 0.6 oz pur e alcohol) Sex and Gender Information Value Date Recorded Sex Assigned at Not on file Legal Sex Male 11:14 AM HOSPITAL RECRUITER Gender Identity Not on file Sexual Orientation Not on file documented as of this encounter Medications at Time of Discharge albuterol HFA (PROVENTIL HFA,VENTOLIN HFA) 90 mcg/actuation inhaler Inhale 2 puffs every 4 (four) hours as needed BREO ELLIPTA 200-25 mcg/dose diskus inhaler Inhale 1 puff daily 07/13/2017 tamsulosin (FLOMAX) 0.4 mg capsule,extended release 24hr Take 0.4 mg by mouth 2 (two) times a day ALPRAZolam (XANAX) 1 mg tablet 3 06/10/2017 01/10/2020 amoxicillin-clavu lanate (AUGMENTIN) 875-125 mg per tablet 06/19/2016 11/24/2017 cetirizine (ZyrTEC) 10 mg tablet Take 10 mg by mouth. 11/24/2017 finasteride (PROSCAR) 5 mg tablet 06/23/2017 11/24/2017 HYDROcodone-aceta minophen (NORCO) 5-325 mg per tabletIndications :Pain 0 06/12/2017 11/24/2017 ibuprofen (ADVIL,MOTRIN) 800 mg tablet 07/10/2017 01/10/2020 methadone (DOLOPHINE) 10 mg tablet Take 140 [...] Name Priority Date/Time Associated Diagnosis Comments XR PELVIS 1 OR 2 VIEWS Schedule Routine, Read Routine (OP Routine) 07/21/2017 11:10 AM HOSPITAL RECRUITER Orthopedic aftercare documented in this encounter Results * XR Pelvis 1 or 2 Views (07/21/2017 11:10 AM HOSPITAL RECRUITER) Anatomical Region Laterality Modality Body, Pelvis N/A Digital Radiogra phy Narrative 07/22/2017 5:05 PM HOSPITAL RECRUITER No further displacement of rami fractures noted. Some callus formation noted. Patricio Grimm MD IMG XR PROCEDURES Final Result documented in this encounter Visit Diagnoses Not on filedocumented in this encounter Care Teams Programming Internship Relationship Specialty Start Date End Date Geovanni Saunders NP [address] [place] [address] [address] [place] [address] PCP - General 01/02/17 04/28/18 documented as of this encounter
--- OUTSIDE RECORDS SUMMARY | 2024-05-31 23:31 | XMS_ITS | Encounter Summary ---
Author Organization [facility] Address [address] [place] [address] Care Team Providers Care Automotive Service Writer Name Role Phone Geovanni Saunders NP Primary Care Provider + Encounter Details Date Type Department Care Team (Latest Contact Info) Description 08/12/2017 8:10 AM CDT - 08/12/2017 11:59 PM CDT Hospital Encounter [facility] Orthopedics and Sports Medicine [address] [place] [address] [address] [place] [phone] Discharge Disposition: Discharge to home or self care Social History Tobacco Use Types Packs/Day Years Used Date Smoking Tobacco: Former Smokeless Tobacco: Never Alcohol Use Standard Drinks/Week Comments Yes 0 (1 standard drink = 0.6 oz pur e alcohol) Sex and Gender Information Value Date Recorded Sex Assigned at Not on file Legal Sex Male 11:14 AM TITLE OFFICER Gender Identity Not on file Sexual Orientation [...] VIEWS Schedule Routine, Read Routine (OP Routine) 08/12/2017 12:31 PM CDT Closed fracture of right superior pubic ramus, initial encounter ([facility]) documented in this encounter Results * XR Pelvis 1 or 2 Views (08/12/2017 12:31 PM CDT) Anatomical Region Laterality Modality Body, Pelvis N/A Digital Radiogra phy Narrative 08/12/2017 1:30 PM CDT Radiographs taken of the pelvis today reveal continued right inferior and superior pubic rami fractures with mild displacement with further callus formation but not yet complete fracture healing. Kelsey CARD IMSerg XR PROCEDURES Fin al Result documented in this encounter Visit Diagnoses Not on filedocumented in this encounter Care Teams Automotive Service Writer Relationship Specialty Start Date End Date Geovanni Saunders NP [address] [place] [address] [address] [place] [address] PCP - General 01/02/17 04/28/18 documented as of this encounter
--- OUTSIDE RECORDS SUMMARY | 2024-05-31 23:31 | XMS_ITS | Encounter Summary ---
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
--- OUTSIDE RECORDS SUMMARY | 2024-05-31 23:31 | XMS_ITS | Encounter Summary ---
Author Organization [facility] Address [address] [place] [address] Care Team Providers Care Montessori Preschool Teacher Name Role Phone Geovanni Saunders NP Primary Care Provider + Reason for Visit * Reason Comments Fracture pelvis fracture foll ow up Follow-up Fracture Encounter Details Date Type Department Care Team (Late st Contact Info) Description 07/21/2017 1:45 PM PRODUCT LEAD Office Visit [facility] Orthopedics and Sports Medicine [address] [place] [phone] Patricio Grimm MD [address] [facility] [address] [place], [place] [id number] Orthopedic aftercare (Primary Dx); Closed fracture of right inferior pubic ramus with routine healing, subsequent encounter Social History Tobacco Use Types Packs/Day Years Used Date Smoking Tobacco: Former Smokeless Tobacco: Never Alcohol Use Standard Drinks/Week Comments Yes 0 (1 standard drink = 0.6 oz pur e alcohol) Sex and Gender Information Value Date Recorded Sex Assigned at Not on file Legal Sex Male 11:14 AM PRODUCT LEAD Gender Identity Not on file Sexual Orientation Not on file documented as of this encounter Last Filed Vital Signs Vital Sign Reading Time Taken Comments Blood Pressure 108/68 07/21/2017 11:15 AM PRODUCT LEAD Pulse 81 07/21/2017 11:15 AM PRODUCT LEAD Temperature - - Respiratory Rate - - Oxygen Saturation - - Inhaled Oxygen Concentration - - Weight 76.7 kg (169 lb) 07/21/2017 11:15 AM PRODUCT LEAD Height 177.8 cm (5' 10 ) 07/21/2017 11:15 AM PRODUCT LEAD Body Mass Index 24.25 07/21/2017 11:15 AM PRODUCT LEAD documented in this encounter Progress Notes * Patricio Grimm MD - 07/21/2017 1:45 PM CST Images from the original note were not included. FOLLOW UP VISIT Subjective CHIEF COMPLAINT He had concerns including Follow-up and Fracture of the Pelvis and Fracture (pelvis fracture followup). HISTORY OF PRESENT ILLNESS Patient continues to have some pelvic pain and difficulty with ambulation. He states that this seems to be getting better with time. He is still rather immobile. Pain Assessment Pain Assessment: 0-10 Pain Score: 10 - Worst possible pain MEDICATIONS He has a current medication list which includes the following prescription(s): albuterol hfa, alprazolam, amoxicillin-clavulanate, breo ellipta, cetirizine, finasteride, hydrocodone-acetaminophen, ibuprofen, methadone, mometasone, pediatric multivitamin-iron, tamsulosin, and tizanidine. REVIEW OF SYSTEMS Review of Systems Constitutional: Negative for activity change, appetite change, chills and fever. HENT: Negative for congestion, dental problem, ear pain, hearing loss and voice change. Eyes: Negative for pain and visual disturbance. Respiratory: Negative for apnea, cough, chest tightness and shortness of breath. Cardiovascular: Negative for chest pain, palpitations and leg swelling. Gastrointestinal: Negative for blood in stool, constipation, diarrhea, nausea and vomiting. Endocrine: Negative for cold intolerance and heat intolerance. Genitourinary: Negative for difficulty urinating and hematuria. Musculoskeletal: Positive for arthralgias, back pain, gait problem, joint swelling and myalgias. Skin: Negative for color change, rash and wound. Allergic/Immunologic: Negative for environmental allergies. Neurological: Negative for dizziness, syncope, numbness and headaches. Hematological: Negative for adenopathy. Does not bruise/bleed easily. Psychiatric/Behavioral: Negative for confusion. The patient is not nervous/anxious and is not hyperactive. Objective PHYSICAL EXAM BP 108/68 (BP Location: Left arm, Patient Position: Sitting) Pulse 81 Ht 177.8 cm (5' 10 ) Wt76.7 kg (169 lb) BMI 24.25 kg/m?? Right hip Comments: The pelvis is stable to AP and lateral compression. He has someDiscomfort with lateral compression. He has some pain on the right side and at the pubic symphysis. He has negative logroll. REVIEW OF X-RAYS/STUDIES/LABS XR Pelvis 1 or 2 Views No further displacement of rami fractures noted. Some callus formation noted. Assessment/Plan Saravanan was seen today for fracture, follow-up and fracture. Diagnoses and all orders for this visit: Orthopedic aftercare - XR Pelvis 1 or 2 Views PLAN Continued conservative management with weight-bearing as tolerated. He will follow up in 8 weeks for repeat x-ray. Hopefully we will see complete healing at that time. Patricio Grimm MD UCT LEAD documented in this encounter Plan of Treatment Not on file documented as of this encounter Procedures Procedure Name Priority Date/Time Associated Diagnosis Comments XR PELVIS 1 OR 2 VIEWS Schedule Routine, Read Routine (OP Routine) 07/21/2017 11:10 AM PRODUCT LEAD Orthopedic aftercare documented in this encounter Results * XR Pelvis 1 or 2 Views (07/21/2017 11:10 AM PRODUCT LEAD) Anatomical Region Laterality Modality Body, Pelvis N/A Digital Radiogra phy Narrative 07/22/2017 5:05 PM PRODUCT LEAD No further displacement of rami fractures noted. Some callus formation noted. Patricio Grimm MD IMG XR PROCEDURES Final Result documented in this encounter Visit Diagnoses Diagnosis Orthopedic aftercare- Primary Unspecified orthopedic aftercare Closed fracture of right inferior pubic ramus with routine healing, subsequent encounter documented in this encounter Historical Medications * This list may reflect changes made after this encounter. BREO ELLIPTA 200-25 mcg/dose diskus inhaler Inhale 1 puff daily 07/13/2017 ibuprofen (ADVIL,MOTRIN) 800 mg tablet 07/10/2017 01/10/2020 finasteride (PROSCAR) 5 mg tablet 06/23/2017 11/24/2017 added in this encounter Care Teams Montessori Preschool Teacher Relationship Specialty Start Date End Date Geovanni Saunders NP [address] [place] [address] [address] [address] PCP - General 01/02/17 04/28/18 documented as of this encounter
--- OUTSIDE RECORDS SUMMARY | 2024-05-31 23:31 | XMS_ITS | Encounter Summary ---
Author Organization [facility] Address [address] [place] [address] Care Team Providers Care Membership Coordinator Name Role Phone Geovanni Saunders GRAPPLE OPERATOR Primary Care Provider + Reason for Visit * Reason Comments Follow-up Encounter Details Date Type Department Care Team (Late st Contact Info) Description 09/08/2017 11:00 AM CDT Office Visit [facility] Orthopedics and Sports Medicine [address] [facility] [address] [place] [address] Sav Hussein PA [address] [facility] [address] [place], [place] [id number] Orthopedic aftercare (Primary Dx) Social History Tobacco Use Types Packs/Day Years Used Date Smoking Tobacco: Former Smokeless Tobacco: Never Alcohol Use Standard Drinks/Week Comments Yes 0 (1 standard drink = 0.6 oz pur e alcohol) Sex and Gender Information Value Date Recorded Sex Assigned at Not on file 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 Sex 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 Gender Identity Not on file Sexual Orientation Not on file documented as of this encounter Last Filed Vital Signs Vital Sign Reading Time Taken Comments Blood Pressure 138/77 09/08/2017 11:05 AM CDT Pulse 96 09/08/2017 11:05 AM CDT Temperature - - Respiratory Rate - - Oxygen Saturation - - Inhaled Oxygen Concentration - - Weight 73.3 kg (161 lb 9.6 oz) 09/08/2017 11:05 AM CDT Height 177.8 cm (5' 10 ) 09/08/2017 11:05 AM CDT Body Mass Index 23.19 09/08/2017 11:05 AM CDT documented in this encounter Progress Notes * Sav Hussein PA - 09/08/2017 11:00 AM CDT Images from the original note were not included. FOLLOW UP VISIT Subjective CHIEF COMPLAINT He had concerns including Follow-up of the Pelvis. HISTORY OF PRESENT ILLNESS Patient is a 62-year-old male presents today for re-evaluation for his pubic rami fracture. He has no complaints at this time and is ambulating well without difficulty. States he has been performing ADLs without difficulty and has been riding on his motorcycle for short stints with no issues. Denies groin pain or pain with range of motion of the hips. No new complaints today otherwise. Pain Assessment Pain Assessment: 0-10 Pain Score: 2 MEDICATIONS He has a current medication list which includes the following prescription(s): albuterol hfa, alprazolam, breo ellipta, cetirizine, finasteride, hydrocodone- acetaminophen, ibuprofen, methadone, mometasone, pediatric multivitamin-iron, tamsulosin, tizanidine, and amoxicillin-clavulanate. REVIEW OF SYSTEMS Review of Systems Constitutional: [...] Negative for difficulty urinating and hematuria. Musculoskeletal: Negative for arthralgias, gait problem, joint swelling and myalgias. Skin: Negative for color change, rash and wound. Allergic/Immunologic: Negative for environmental allergies. Neurological: Negative for dizziness, syncope, numbness and headaches. Hematological: Negative for adenopathy. Does not bruise/bleed easily. Psychiatric/Behavioral: Negative for confusion. The patient is not nervous/anxious and is not hyperactive. Objective PHYSICAL EXAM BP 138/77 Pulse 96 Ht 177.8 cm (5' 10 ) Wt 73.3 kg (161 lb 9.6 oz) BMI 23.19 kg/m?? Right hip The patient has nomal inspection, palpation, range of motion, strength, and stability of the right hip. Left hip The patient has normal inspection, palpation, range of motion, strength, and stability of the left hip. REVIEW OF X-RAYS/STUDIES/LABS XR Pelvis 1 or 2 Views Moderately improved fracture healing with callus formation, compared with views 1 month ago. No interval changes otherwise. Assessment/Plan Saravanan was seen today for follow-up. Diagnoses and all orders for this visit: Orthopedic aftercare - XR Pelvis 1 or 2 Views PLAN Patient may continue activity weight-bearing as tolerated. He is tolerating his ADLs well without difficulty. he may follow up on a p.r.n. basis. All questions answered KYAW Yusuf documented in this encounter Plan of Treatment Not on file documented as of this encounter Procedures Procedure Name Priority Date/Time Associated Diagnosis Comments XR PELVIS 1 OR 2 VIEWS Schedule Routine, Read Routine (OP Routine) 09/08/2017 10:56 AM CDT Orthopedic aftercare documented in this encounter Results * XR Pelvis 1 or 2 Views (09/08/2017 10:56 AM CDT) Anatomical Region Laterality Modality Body, Pelvis N/A Digital Radiogra phy Narrative 09/10/2017 3:11 PM CDT Moderately improved fracture healing with callus formation, compared with views 1 month ago. ??No interval changes otherwise. Sav CARD IMG XR PROCEDURES Final R esult documented in this encounter Visit Diagnoses Diagnosis Orthopedic aftercare- Primary Unspecified orthopedic aftercare documented in this encounter Care Teams Membership Coordinator Relationship Specialty Start Date End Date Geovanni Saunders NP [address] [place] [address] [address] [place] [address] PCP - General 01/02/17 04/28/18 documented as of this encounter
--- OUTSIDE RECORDS SUMMARY | 2024-05-31 23:31 | XMS_ITS | Encounter Summary ---
Author Organization [facility] Address [address] [place] [address] Care Team Providers Care Cam Maker Name Role Phone Miscellaneous, Not In File Primary Care Provider Unavailable Reason for Visit * Reason Comments Finger Laceration Encounter Details Date Type Department Care Team (Late st Contact Info) Description 06/04/2019 3:47 PM PHONE REPRESENTATIVE - 06/04/2019 4:42 PM PHONE REPRESENTATIVE Emergency [facility] Emergency Department [address] [place] [address] Avulsion of skin of right thumb without complication, initial encounter (Primary Dx); Immunization, tetanus-diphtheria Discharge Disposition: Discharge to home or self care Social History Tobacco Use Types Packs/Day Years Used Date Smoking Tobacco: Former Smokeless Tobacco: Never Comments:e cig Alcohol Use Standard Drinks/Week Comments Not Currently 0 (1 standard drink = 0.6 oz pur e alcohol) Sex and Gender Information Value Date Recorded Sex Assigned at Not on file Legal Sex Male 11:14 AM PHONE REPRESENTATIVE Gender Identity Not on file Sexual Orientation Not on file documented as of this encounter Last Filed Vital Signs Vital Sign Reading Time Taken Comments Blood Pressure 122/81 06/04/2019 3:44 PM PHONE REPRESENTATIVE Pulse 70 06/04/2019 3:44 PM PHONE REPRESENTATIVE Temperature 36.7 ??C (98 ??F) 06/04/2019 3:44 PM PHONE REPRESENTATIVE Respiratory Rate 18 06/04/2019 3:44 PM PHONE REPRESENTATIVE Oxygen Saturation 94% 06/04/2019 3:44 PM PHONE REPRESENTATIVE Inhaled Oxygen Concentration - - Weight 68 kg (150 lb) 06/04/2019 3:44 PM PHONE REPRESENTATIVE Height 172.7 cm (5' 8 ) 06/04/2019 3:44 PM PHONE REPRESENTATIVE Body Mass Index 22.81 06/04/2019 3:44 PM PHONE REPRESENTATIVE documented in this encounter Discharge Diagnoses Diagnosis Unspecified open wound of right thumb without damage to nail, initial encounter - UNSPECIFIED OPEN WOUND OF RIGHT THUMB WITHOUT DAMAGE TO NAIL, INITIAL ENCOUNTER Laceration without foreign body of right thumb without damage to nail, initial encounter - LACERATION WITHOUT FOREIGN BODY OF RIGHT THUMB WITHOUT DAMAGE TO NAIL, INITIAL ENCOUNTER Encounter for immunization - ENCOUNTER FOR IMMUNIZATION Major depressive disorder, single episode, unspecified - MAJOR DEPRESSIVE DISORDER, SINGLE EPISODE, UNSPECIFIED Emphysema, unspecified (HCC) - EMPHYSEMA, UNSPECIFIED Personal history of urinary calculi - PERSONAL HISTORY OF URINARY CALCULI Personal history of nicotine dependence - PERSONAL HISTORY OF NICOTINE DEPENDENCE Contact with powered woodworking and forming machines, initial encounter - CONTACT WITH POWERED WOODWORKING AND FORMING MACHINES, INITIAL ENCOUNTER Activity, other specified - ACTIVITY, OTHER SPECIFIED Unspecified place in unspecified non-institutional (private) residence as the place of occurrence of the external cause - UNSPECIFIED PLACE IN UNSPECIFIED NON-INSTITUTIONAL (PRIVATE) RESIDENCE THE PLACE OF OCCURRENCE OF documented in this encounter Discharge Instructions * Discharge Instructions* Yinka Rosales PA - 06/04/2019 4:35 PM PHONE REPRESENTATIVE You received a tetanus booster today which contains tetanus, diphtheria, and pertussis. It is good for 10 years. E REPRESENTATIVE E REPRESENTATIVE * Attachments The following attachments cannot be sent through Care Everywhere. * Skin Avulsion (AfterCare(R) Instructions(ER/ED)) (Bulgarian) documented in this encounter Medications at Time of Discharge albuterol HFA (PROVENTIL HFA,VENTOLIN HFA) 90 mcg/actuation inhaler Inhale 2 puffs every 4 (four) hours as needed BREO ELLIPTA 200-25 mcg/dose diskus inhaler Inhale 1 puff daily 07/13/2017 clonazePAM (KlonoPIN) 0.5 mg tablet Take 0.5 mg by mouth 3 (three) times a day as needed for anxiety omeprazole (PriLOSEC) 20 mg capsule Take 20 mg by mouth daily. sertraline (ZOLOFT) 50 mg tablet Take 100 mg by mouth daily tamsulosin (FLOMAX) 0.4 mg capsule,extended release 24hr Take 0.4 mg by mouth 2 (two) times a day cephalexin (KEFLEX) 500 mg capsule Take 1 capsule (500 mg total) by mouth 3 (three) times a day for 7 days 21 capsule 06/04/2019 0 ALPRAZolam (XANAX) 1 mg tablet 3 06/10/2017 0 ferrous sulfate 325 mg (65 mg of elemental iron) tabletIndication s:Iron Deficiency Anemia Take 65 mg of elemental iron by mouth daily with breakfast. 0 ibuprofen (ADVIL,MOTRIN) 800 mg tablet 07/10/2017 0 levothyroxine (SYNTHROID, LEVOTHROID) 100 mcg tablet Take 88 mcg by mouth chicken and fish cleaner before breakfast 04/12/2018 0 methadone (DOLOPHINE) 10 mg tablet Take 140 mg by mouth, 0 mupirocin (BACTROBAN) 2 % ointment Apply topically daily Apply with each dressing change 22 g 06/04/2019 0 pediatric multivitamin-iro n tablet,chewable Take by mouth. 01/09 0 raNITIdine (ZANTAC) 300 mg tablet 04/12/2018 0 traZODone (DESYREL) 50 mg tablet Take 50 mg by mouth nightly. 0 documented as of this encounter Ordered Prescriptions Prescription Sig Dispense Quantity Refills Last Filled Start Date End Date mupirocin (BACTROBAN) 2 % ointment Apply topically daily Apply with each dressing change 22 g 06/04/2019 0 cephalexin (KEFLEX) 500 mg capsule Take 1 capsule (500 mg total) by mouth 3 (three) times a day for 7 days 21 capsule 06/04/2019 0 documented in this encounter Discharge Disposition Disposition Code Departure Means Destination Discharge to home or self care documented in this encounter ED Notes * Yinka Rosales PA - 06/04/2019 3:56 PM CST HPI Chief Complaint Patient presents with ??? Finger Laceration 63-year-old male presents with chief complaint of injury to the right thumb. Two days ago was working with a table saw at home and accidentally ran his right thumb into the saw blade. States he caredfor it immediately by cleaning it with hydrogen peroxide solution. States he has been keeping it clean, dry, and dressed since then. Complains of mild to moderate sharp pain aggravated by bumping it.Alleviated by protecting it and keeping it dressed. States his last tetanus booster was ???many years ago?? . Denies loss of sensation or function. Patient History Patient Active Problem List Diagnosis Date Noted ??? Avulsion of skin of right thumb without complication 06/04/2019 ??? Immunization, tetanus-diphtheria 06/04/2019 ??? Closed fracture of right inferior pubic ramus ([facility]) 06/16/2017 ??? Closed fracture of right superior pubic ramus ([facility]) 06/16/2017 ??? Unspecified urinary incontinence 04/14/2017 Class: Chronic ??? Calculus of urinary bladder 01/27/2017 Class: Chronic Past Medical History: Diagnosis Date ??? Depression ??? Emphysema of lung ([facility]) ??? Infectious viral hepatitis ??? Kidney stone ??? Melena Past Surgical History: Procedure Laterality Date ??? COLONOSCOPY 2009 No family history on file. Social History Tobacco Use ??? Smoking status: Former Smoker ??? Smokeless tobacco: Never Used ??? Tobacco comment: e cig Substance Use Topics ??? Alcohol use: Not Currently ??? Drug use: Not Currently Social History Patient does not qualify to have social determinant information on file (likely too young). Social History Narrative ??? Not on file Review of Systems Review of Systems All other systems reviewed negative. All available allergies, past medical history, past surgical history, social history, and medications reviewed from the medical record, nursing notes, and with patient Physical Exam ED Triage Vitals [06/04/19 1544] Temp Pulse Resp BP SpO2 36.7 ??C (98 ??F) 70 18 122/81 94 % Temp src Heart Rate Source Patient Position BP Location FiO2 (%) Temporal -- -- -- -- Physical Exam Vitals signs and nursing note reviewed. Constitutional: Appearance: Normal appearance. HENT: Head: Normocephalic. Right Ear: Ear canal and external ear normal. Left Ear: Ear canal and external ear normal. Nose: Nose normal. Mouth/Throat: Mouth: Mucous membranes are moist. Pharynx: Oropharynx is clear. Eyes: Conjunctiva/sclera: Conjunctivae normal. Pupils: Pupils are equal, round, and reactive to light. Neck: Musculoskeletal: Normal range of motion. Cardiovascular: Rate and Rhythm: Normal rate and regular rhythm. Pulses: Normal pulses. Heart sounds: Normal heart sounds. Pulmonary: Effort: Pulmonary effort is normal. Breath sounds: Normal breath sounds. Musculoskeletal: Normal range of motion. Comments: Right thumb exam - partial skin thickness avulsion to the palm side distal phalanx. Woundhas healing margins and is mildly erythematous. Negative for discharge of pus. Negative for swelling. Negative for lymphangitic streaking. Nail plate and nail bed are spared. Intact motor and sensory throughout. Brisk distal cap refill. Skin: General: Skin is warm and dry. Neurological: General: No focal deficit present. Mental Status: He is alert and oriented to person, place, and time. Psychiatric: Mood and Affect: Mood normal. Behavior: Behavior normal. Thought Content: Thought content normal. Judgment: Judgment normal. MDM MDM Avulsion of skin of right thumb without complication, initial encounter Immunization, tetanus-diphtheria KYAW Castellano 06/04/19 1636 Cosigned by Manuel Feliz MD at 06/04/2019 4:38 PM PHONE REPRESENTATIVE E REPRESENTATIVE E REPRESENTATIVE Associated attestation - Manuel Feliz MD - 06/04/2019 4:38 PM PHONE REPRESENTATIVE ED Attestation Based on the medical record the care appears appropriate. * Tamera Peoples RN - 06/04/2019 3:42 PM CST Laceration to his right thumb 48 hours ago on a table saw E REPRESENTATIVE documented in this encounter Miscellaneous Notes * ED Procedure Note - Yinka Rosales PA - 06/04/2019 4:31 PM CST Procedure Procedures Wound care: Cleansed with Restore Dermal Wound Cleanser and hydrogen peroxide solution. Dried with sterile 4x4s. Applied Surgicel, Telfa, Marla, and Coban dressing. Patient tolerated well. Aseptic technique utilized throughout procedure. KYAW Castellano 06/04/19 1632 E REPRESENTATIVE documented in this encounter Plan of Treatment Not on file documented as of this encounter Procedures Procedure Name Priority Date/Time Associated Diagnosis Comments XR FINGER THUMB RIGHT ED 06/04/2019 4:06 PM PHONE REPRESENTATIVE documented in this encounter Results * XR Finger Thumb Right Minimum 2 Views (06/04/2019 4:06 PM PHONE REPRESENTATIVE) Anatomical Region Laterality Modality Upper Extremities, Hand, Fingers Right Computed Radiography 06/04/2019 4:00 PM PHONE REPRESENTATIVE Narrative 06/04/2019 4:26 PM PHONE REPRESENTATIVE PROCEDURE INFORMATION: Exam: XR Right Finger(s) Exam date and time: 06/04/2019 4:00 PM Age: 63 years old Clinical indication: Injury or trauma; Injury history: Saw incident; Initial encounter; Laceration; Finger; Right; Thumb; Injury date: 06/02/2019; Additional info: Cut on a table saw. Top layers of skin cut off of anterior distal portion of thumb. TECHNIQUE: Imaging protocol: XR Right fingers. Views: Minimum 2 views. COMPARISON: No relevant prior studies available. FINDINGS: Bones/joints: There is marked dorsiflexion of the distal phalanx with respect of the proximal phalanx. Clinical correlation to exclude tendon rupture suggested. Degenerative changes demonstrated in the 1st interphalangeal joint and and 1st MCP joint. Degenerative changes in the triscaphe joint. Soft tissues: Soft tissue edema along the volar aspect of the thumb. IMPRESSION: 1. There is marked dorsiflexion of the distal phalanx with respect of the proximal phalanx. Clinical correlation to exclude tendon rupture suggested. 2. Soft tissue edema along the volar aspect of the thumb. THIS DOCUMENT HAS BEEN ELECTRONICALLY SIGNED BY PARAM DELAROSA MD Procedure Note Param Delarosa MD - 06/04/2019 PROCEDURE INFORMATION: Exam: XR Right Finger(s) Exam date and time: 06/04/2019 4:00 PM Age: 63 years old Clinical indication: Injury or trauma; Injury history: Saw incident;Initial encounter; Laceration; Finger; Right; Thumb; Injury date: 06/02/2019;Additional info: Cut on a table saw. Top layers of skin cut off of anterior distalportion of thumb. TECHNIQUE: Imaging protocol: XR Right fingers. Views: Minimum 2 views. COMPARISON: No relevant prior studies available. FINDINGS: Bones/joints: There is marked dorsiflexion of the distal phalanx withrespect of the proximal phalanx. Clinical correlation to exclude tendon rupture suggested. Degenerative changes demonstrated in the 1st interphalangealjoint and and 1st MCP joint. Degenerative changes in the triscaphe joint. Soft tissues: Soft tissue edema along the volar aspect of the thumb. IMPRESSION: 1. There is marked dorsiflexion of the distal phalanx with respect ofthe proximal phalanx. Clinical correlation to exclude tendon rupturesuggested. 2. Soft tissue edema along the volar aspect of the thumb. THIS DOCUMENT HAS BEEN ELECTRONICALLY SIGNED BY PARAM DELAROSA MD us Yinka CARD IMG XR PROCEDURES Final Resu lt documented in this encounter Visit Diagnoses Diagnosis Avulsion of skin of right thumb without complication, initial encounter- Primary Immunization, tetanus-diphtheria Need for prophylactic vaccination with tetanus-diphtheria (Td) Avulsion of skin of right thumb without complication Immunization, tetanus-diphtheria Need for prophylactic vaccination with tetanus-diphtheria (Td) documented in this encounter Care Teams Cam Maker Relationship Specialty Start Date End Date Miscellaneous, Not In File PCP - General 04/29/1805/13 documented as of this encounter
--- OUTSIDE RECORDS SUMMARY | 2024-05-31 23:31 | XMS_ITS | Encounter Summary ---
Author Organization [facility] Healthcare Address [address] [place] [address] Care Team Providers Care Arranging Funeral Director Name Role Phone Geovanni Saunders [employer] Primary Care Provider + Encounter Details Date Type Department Care Team (Latest Contact Info) Description 10/28/2017 10:29 AM CDT - 10/28/2017 11:59 PM CDT Hospital Encounter [facility] [address] [place] [address] Geovanni Saunders, JUANJOSE [address] [place] [id number] Krishna Rios MD [address] [place] [id number] Abnormal levels of other serum enzymes Discharge Disposition: Discharge to home or self care Social History Tobacco Use Types Packs/Day Years Used Date Smoking Tobacco: Former Smokeless Tobacco: Never Alcohol Use Standard Drinks/Week Comments Yes 0 (1 standard drink = 0.6 oz pur e alcohol) Sex and Gender Information Value Date Recorded Sex Assigned at Not on file 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 8 ferrous sulfate 325 mg (65 mg of elemental iron) tabletIndication s:Iron Deficiency Anemia Take 65 mg of elemental iron by mouth daily with breakfast. 0 finasteride (PROSCAR) 5 mg tablet 06/23/2017 8 HYDROcodone-acet aminophen (NORCO) 5-325 mg per tabletIndication s:Pain 0 06/12/2017 8 ibuprofen (ADVIL,MOTRIN) 800 mg tablet 07/10/2017 0 methadone (DOLOPHINE) 10 mg tablet Take 140 mg by mouth, 0 mometasone (ASMANEX HFA) 200 mcg/actuation HFA aerosol inhaler 05/28/2016 8 pediatric multivitamin-iro n tablet,chewable Take by mouth. 01/09 0 tiZANidine (ZANAFLEX) 4 mg tablet Take 4 mg by mouth. 9 traZODone (DESYREL) 50 mg tablet Take 50 mg by mouth nightly. 0 documented as of this encounter Discharge Disposition Disposition Code Departure Means Destination Discharge to home or self care documented in this encounter Plan of Treatment Not on file documented as of this encounter Procedures Procedure Name Priority Date/Time Associated Diagnosis Comments US LIVER Schedule Routine, Read Routine (OP Routine) 10/28/2017 11:32 AM CDT Abnormal levels of other serum enzymes documented in this encounter Results * US Liver (10/28/2017 11:32 AM CDT) Anatomical Region Laterality Modality Abdomen N/A Ultrasound 10/28/2017 1:50 PM CDT Impressions 10/28/2017 2:02 PM CDT 1. ??Well distended gallbladder without discrete abnormality. 2. ??Pancreas and distal portion of abdominal aorta obscured by bowel gas. 3. ??No other right upper quadrant abnormality seen. Electronically signed by: Negrito Pizarro Jr., M.D. Narrative 10/28/2017 2:02 PM CDT US LIVER HISTORY: Elevated liver function tests. COMPARISON: LIVER ON 05/29/2017. ??CT ABDOMEN AND PELVIS ON 01/07/2017. TECHNIQUE: Grayscale real-time transabdominal images. FINDINGS: Pancreas is poorly seen due to overlying bowel gas. Visualized portions of abdominal aorta and inferior vena cava are normal. ??Distal abdominal aorta is obscured by bowel gas. Hepatic size and echotexture appear normal. Intrahepatic ducts are not dilated Common bile duct measures 4.3 mm. Gallbladder is well distended; measures approximately 4 cm diameter and 10 cm length, but without wall thickening, pericholecystic fluid, or calculi or other intraluminal echoes. Right kidney measures 9.0 cm length and 4.0 x 3.8 cm width without pelvicalyceal distention, mass or cyst. No abdominal free fluid is seen Procedure Note Negrito Pizarro MD - 10/28/2017 US LIVER HISTORY: Elevated liver function tests. COMPARISON: LIVER ON 05/29/2017. CT ABDOMEN AND PELVIS ON 01/07/2017. TECHNIQUE: Grayscale real-time transabdominal images. FINDINGS: Pancreas is poorly seen due to overlying bowel gas. Visualized portions of abdominal aorta and inferior vena cava are normal. Distal abdominal aorta is obscured by bowel gas. Hepatic size and echotexture appear normal. Intrahepatic ducts are not dilated Common bile duct measures 4.3 mm. Gallbladder is well distended; measures approximately 4 cm diameter and 10 cm length, but without wall thickening, pericholecystic fluid, or calculi or other intraluminal echoes. Right kidney measures 9.0 cm length and 4.0 x 3.8 cm width without pelvicalyceal distention, mass or cyst. No abdominal free fluid is seen IMPRESSION: 1. Well distended gallbladder without discrete abnormality. 2. Pancreas and distal portion of abdominal aorta obscured by bowel gas. 3. No other right upper quadrant abnormality seen. Electronically signed by: Negrito Pizarro Jr., M.D. Geovanni Saunders [employer] IMG US PROCEDURES Final Result documented in this encounter Visit Diagnoses Diagnosis Abnormal levels of other serum enzymes documented in this encounter Care Teams Arranging Funeral Director Relationship Specialty Start Date End Date Geovanni Saunders, JUANJOSE [address] [facility] [address] [place] [address] PCP - General 01/02/17 04/28/18 documented as of this encounter
--- OUTSIDE RECORDS SUMMARY | 2024-05-31 23:31 | XMS_ITS | Encounter Summary ---
Author Organization [facility] Medical Group Address [address] [place] [address] Care Team Providers Care Falsework Builder Name Role Phone Geovanni Saunders NP Primary Care Provider + Encounter Details Date Type Department Care Team (Latest Contact Info) Description 09/08/2017 7:50 AM CDT - 09/08/2017 11:59 PM CDT Hospital Encounter [facility] Orthopedics and Sports Medicine [address] [place] [address] [address] [place] [phone] Discharge Disposition: Discharge to home or self care Social History Tobacco Use Types Packs/Day Years Used Date Smoking Tobacco: Former Smokeless Tobacco: Never Alcohol Use Standard Drinks/Week Comments Yes 0 (1 standard drink = 0.6 oz pur e alcohol) Sex and Gender Information Value Date Recorded Sex Assigned at Not on file 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
--- OUTSIDE RECORDS SUMMARY | 2024-05-31 23:31 | XMS_ITS | Encounter Summary ---
Author Organization [facility] Healthcare Address [address] [place] [address] Care Team Providers Care Line Department Supervisor Name Role Phone Miscellaneous, Not In File Primary Care Provider Unavailable Reason for Referral * Diagnostic Imaging (Routine) - Closed Specialty Diagnoses / Procedures Referred By Contac t Referred To Contact Diagnoses Chronic hepatitis C without hepatic coma (CMS/HCC) (HCC) Procedures Liver Pham Herrera MD [facility] [place] [id number] Phone: tel: fax: [address] [phone] Referral ID Status Reason Start Date Expiration Date Visits Re quested Visits Authorized [id number] Closed 11/16/2019 05/27/2021 1 1 Reason for Visit * Diagnostic Imaging (Routine) - Closed Specialty Diagnoses / Procedures Referred By Contac t Referred To Contact Diagnoses Chronic hepatitis C without hepatic coma (CMS/HCC) (HCC) Procedures Liver Pham Herrera MD [address] [facility] [place] [address] Phone: tel: fax: [address] [phone] Referral ID Status Reason Start Date Expiration Date Visits Re quested Visits Authorized [id number] Closed 11/16/2019 05/27/2021 1 1 Encounter Details Date Type Department Care Team (Late st Contact Info) Description 12/22/2019 9:21 AM CDT - 12/22/2019 11:59 PM CDT Hospital Encounter [facility] [address] [place] [id number] Pham Herrera MD [address] [facility] [place] [address] Chronic hepatitis C without hepatic coma (CMS/HCC) Discharge Disposition: Discharge to home or self care Social History Tobacco Use Types Packs/Day Years Used Date Smoking Tobacco: Former Smokeless Tobacco: Never Comments:e cig Alcohol Use Standard Drinks/Week Comments Not Currently 0 (1 standard drink = 0.6 oz pur e alcohol) Sex and Gender Information Value Date Recorded Sex Assigned at Not on file 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 ??Cirrhotic appearance of the liver. 2. ??No evidence of acute cholecystitis. Electronically signed by: Grover Davis M.D. Narrative 12/22/2019 3:44 PM CDT EXAMINATION: US LIVER ORDERING HEALTHCARE PROVIDER: PHAM HERRERA HISTORY: Chronic Hep C. COMPARISON: Liver ultrasound 10/28/2017 TECHNIQUE: Grayscale, color Doppler and spectral Doppler sonographic images of the right upper quadrant abdominal contents were reviewed. FINDINGS: LIVER: Coarsened hepatic echotexture which can be seen with chronic liver disease, with mildly increased echogenicity. ??This compromises evaluation for subtle masses although no distinct mass is seen. ??The hepatic surface shows mild nodularity. ??The main portal vein is patent with hepatopedal flow. GALLBLADDER: The gallbladder is normally distended without gallstones or pericholecystic fluid. The gallbladder wall measures 2.4 mm thickness. BILE DUCTS: The common bile duct measures 4.8 mm in diameter. ?? PANCREAS: Obscured by intervening bowel gas. RIGHT KIDNEY: Survey images of the right kidney demonstrate no hydronephrosis. OTHER: No other acute findings. Procedure Note Grover Davis MD - 12/22/2019 EXAMINATION: US LIVER ORDERING HEALTHCARE PROVIDER: PHAM HERRERA HISTORY: Chronic Hep C. COMPARISON: Liver ultrasound 10/28/2017 TECHNIQUE: Grayscale, color Doppler and spectral Doppler sonographic images of the right upper quadrant abdominal contents were reviewed. FINDINGS: LIVER: Coarsened hepatic echotexture which can be seen with chronic liver disease, with mildly increased echogenicity. This compromises evaluation for subtle masses although no distinct mass is seen. The hepatic surface shows mild nodularity. The main portal vein is patent with hepatopedal flow. GALLBLADDER: The gallbladder is normally distended without gallstones or pericholecystic fluid. The gallbladder wall measures 2.4 mm thickness. BILE DUCTS: The common bile duct measures 4.8 mm in diameter. PANCREAS: Obscured by intervening bowel gas. RIGHT KIDNEY: Survey images of the right kidney demonstrate no hydronephrosis. OTHER: No other acute findings. IMPRESSION: 1. Cirrhotic appearance of the liver. 2. No evidence of acute cholecystitis. Electronically signed by: Grover Davis M.D. us Pham Herrera MD IMG US PROCEDURES Final Result documented in this encounter Visit Diagnoses Diagnosis Chronic hepatitis C without hepatic coma (CMS/HCC) (HCC) documented in this encounter Care Teams Line Department Supervisor Relationship Specialty Start Date End Date Miscellaneous, Not In File PCP - General 04/29/1805/13 documented as of this encounter
--- OUTSIDE RECORDS SUMMARY | 2024-05-31 23:31 | XMS_ITS | Encounter Summary ---
Author Organization [facility] Healthcare Address [address] [place] [address] Care Team Providers Care Pastry Cook Helper Name Role Phone Geovanni Saunders COMBINER Primary Care Provider + Encounter Details Date Type Department Care Team (Latest Contact Info) Description 06/15/2017 7:58 AM SPECIAL EDUCATION PARAEDUCATOR - 06/15/2017 11:59 PM SPECIAL EDUCATION PARAEDUCATOR Hospital Encounter [facility] [address] [place] [address] Krishna Rios MD [address] [place] [id number] Geovanni Saunders NP [address] [place] [address] [address] [address] Closed fracture of symphysis pubis, right, initial encounter ([facility]) Discharge Disposition: Discharge to home or self care Social History Tobacco Use Types Packs/Day Years Used Date Smoking Tobacco: Never Assessed Sex and Gender Information Value Date Recorded Sex Assigned at Not on file Legal Sex Male 11:14 AM SPECIAL EDUCATION PARAEDUCATOR Gender Identity Not on file Sexual Orientation [...] Name Priority Date/Time Associated Diagnosis Comments CT PELVIS WO CONTRAST Schedule Routine, Read Routine (OP Routine) 06/15/2017 9:32 AM SPECIAL EDUCATION PARAEDUCATOR Closed fracture of symphysis pubis, right, initial encounter ([facility]) documented in this encounter Results * CT Pelvis WO Contrast (06/15/2017 9:32 AM SPECIAL EDUCATION PARAEDUCATOR) Anatomical Region Laterality Modality Body N/A Computed Tomogra phy Impressions 06/15/2017 9:52 AM SPECIAL EDUCATION PARAEDUCATOR 1. ??FRACTURES OF THE RIGHT SUPERIOR AND INFERIOR PUBIC RAMI DESCRIBED ABOVE. ??SMALL CORTICAL IRREGULARITY OF THE RIGHT FEMORAL NECK. ??NONDISPLACED FRACTURE DIFFICULT TO EXCLUDE. ??IF CLINICAL CONCERN REMAINS MR COULD BE CONSIDERED FOR FURTHER EVALUATION. 2. ??APPARENT NODULAR FOCUS INFERIOR ASPECT OF THE URINARY BLADDER. NOT EVIDENT ON THE PRIOR EXAMINATION FROM 01/07/2017. ??CYSTOSCOPY MAY BE CONSIDERATION FOR FURTHER EVALUATION. 3. ??WALL THICKENING OF THE URINARY BLADDER WITH ADJACENT STRANDING, WHICH WAS PRESENT PREVIOUSLY. 4. ??RIGHT URETEROCELE. Electronically signed by: Parveen Simms 06/15/2017 9:52 AM SPECIAL EDUCATION PARAEDUCATOR CT PELVIS WO CONTRAST HISTORY: Other specified fracture of right pubis, initial encounter for closed fracture. TECHNIQUE: Helical CT scan with thin section axial images, sagittal coronal reformatted images. ??Soft tissue and osseous windows. 3-D reconstructions on independent workstation. COMPARISON: Plain radiographs of 06/12/2017. ??CT of 01/07/2017. FINDINGS: A fracture the right superior pubic ramus is seen contiguous with the pubic symphysis. ??Maximal distraction of 9 mm. This is an oblique fracture extending to the midportion of the superior pubic ramus. ??A mildly comminuted fracture of the right inferior pubic ramus is seen, involving the midportion extending to the proximal portion somewhat. ??Maximal distraction is 7 mm. ??Small cortical irregularity involving the anterior/ventral aspect of the right femoral neck. ??Nondisplaced fracture may be difficult to exclude. ??Degenerative changes hips. ??Prominent cyst formation subarticular aspect right acetabulum, thought to be degenerative in nature. ??Degenerative changes sacrum iliac joints and the visualized portion lower lumbar spine. An umbilical hernia is present containing only adipose tissue. ??This has a maximal dimension of 2.2 cm. ??Atherosclerotic changes abdominal aorta and iliac arteries. ??Ectasia distal abdominal aorta. Wall thickening the urinary bladder, with adjacent stranding, which was present on the prior study. ??A staghorn calculus is present within urinary bladder on the prior examination, which is not evident on the current examination. ??Small high attenuation foci are seen contiguous with the base the bladder and prostate gland. ??Appearance more suggestive of surgical clips/postsurgical changes. ??Radiation implants less likely. ??These were not evident on the prior examination. ??A nodular focus is seen within the inferior aspect of the urinary bladder which measures 17 mm. ??Bilateral inguinal hernias containing only adipose tissue. ??Right ureterocele once again noted. Procedure Note Yinka Burks MD - 06/15/2017 CT PELVIS WO CONTRAST HISTORY: Other specified fracture of right pubis, initial encounter for closed fracture. TECHNIQUE: Helical CT scan with thin section axial images, sagittal coronal reformatted images. Soft tissue and osseous windows. 3-D reconstructions on independent workstation. COMPARISON: Plain radiographs of 06/12/2017. CT of 01/07/2017. FINDINGS: A fracture the right superior pubic ramus is seen contiguous with the pubic symphysis. Maximal distraction of 9 mm. This is an oblique fracture extending to the midportion of the superior pubic ramus. A mildly comminuted fracture of the right inferior pubic ramus is seen, involving the midportion extending to the proximal portion somewhat. Maximal distraction is 7 mm. Small cortical irregularity involving the anterior/ventral aspect of the right femoral neck. Nondisplaced fracture may be difficult to exclude. Degenerative changes hips. Prominent cyst formation subarticular aspect right acetabulum, thought to be degenerative in nature. Degenerative changes sacrum iliac joints and the visualized portion lower lumbar spine. An umbilical hernia is present containing only adipose tissue. This has a maximal dimension of 2.2 cm. Atherosclerotic changes abdominal aorta and iliac arteries. Ectasia distal abdominal aorta. Wall thickening the urinary bladder, with adjacent stranding, which was present on the prior study. A staghorn calculus is present within urinary bladder on the prior examination, which is not evident on the current examination. Small high attenuation foci are seen contiguous with the base the bladder and prostate gland. Appearance more suggestive of surgical clips/postsurgical changes. Radiation implants less likely. These were not evident on the prior examination. A nodular focus is seen within the inferior aspect of the urinary bladder which measures 17 mm. Bilateral inguinal hernias containing only adipose tissue. Right ureterocele once again noted. IMPRESSION: 1. FRACTURES OF THE RIGHT SUPERIOR AND INFERIOR PUBIC RAMI DESCRIBED ABOVE. SMALL CORTICAL IRREGULARITY OF THE RIGHT FEMORAL NECK. NONDISPLACED FRACTURE DIFFICULT TO EXCLUDE. IF CLINICAL CONCERN REMAINS MR COULD BE CONSIDERED FOR FURTHER EVALUATION. 2. APPARENT NODULAR FOCUS INFERIOR ASPECT OF THE URINARY BLADDER. NOT EVIDENT ON THE PRIOR EXAMINATION FROM 01/07/2017. CYSTOSCOPY MAY BE CONSIDERATION FOR FURTHER EVALUATION. 3. WALL THICKENING OF THE URINARY BLADDER WITH ADJACENT STRANDING, WHICH WAS PRESENT PREVIOUSLY. 4. RIGHT URETEROCELE. Electronically signed by: Yinka Burks M.D Geovanni Saunders NP IM CT PROCEDURES Final Result documented in this encounter Visit Diagnoses Diagnosis Closed fracture of symphysis pubis, right, initial encounter (HCC) documented in this encounter Care Teams Pastry Cook Helper Relationship Specialty Start Date End Date Geovanni Saunders NP [address] [place] [address] [address] [place] [address] PCP - General 01/02/17 04/28/18 documented as of this encounter
--- OUTSIDE RECORDS SUMMARY | 2024-05-31 23:31 | XMS_ITS | Encounter Summary ---
Author Organization [facility] Medical Group Address [address] [place] [address] Care Team Providers Care Development Coach Name Role Phone Geovanni Saunders LEARNING CENTER COORDINATOR Primary Care Provider + Encounter Details Date Type Department Care Team (Late st Contact Info) Description 08/12/2017 1:00 PM CDT Office Visit [facility] Medical [facility] Orthopedics and Sports Medicine [address] 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 Gender Identity Not on file Sexual Orientation Not on file documented as of this encounter Last Filed Vital Signs Vital Sign Reading Time Taken Comments Blood Pressure 127/75 08/12/2017 1:01 PM CDT Pulse 100 08/12/2017 1:01 PM CDT Temperature - - Respiratory Rate - - Oxygen Saturation - - Inhaled Oxygen Concentration - - Weight 76.1 kg (167 lb 12.8 oz) 08/12/2017 1:01 PM CDT Height 177.8 cm (5' 10 ) 08/12/2017 1:01 PM CDT Body Mass Index 24.08 08/12/2017 1:01 PM CDT documented in this encounter Patient Instructions * Patient Instructions* Kelsey Arndt PA - 08/12/2017 1:00 PM CDT Diagnoses and all orders for this visit: Closed fracture of right inferior pubic ramus with routine healing, subsequent encounter Closed fracture of right superior pubic ramus, initial encounter ([facility]) - XR Pelvis 1 or 2 Views documented in this encounter Progress Notes * Kelsey Arndt PA - 08/12/2017 1:00 PM CDT Images from the original note were not included. FOLLOW UP VISIT Subjective CHIEF COMPLAINT He had no chief complaint listed for this encounter. HISTORY OF PRESENT ILLNESS Mr. Lanza is a 62 year old gentleman who presents to clinic in follow up of his right superior and inferior pubic rami fractures, which he sustained approximately two months ago. He has been weightbearing as tolerated since May and reports significant improvement in his discomfort and mobility, although he continues to experience occasional pain and difficulty putting on his shoes and socks. He denies any other complaints at this time. MEDICATIONS He has a current medication list [...] Genitourinary: Negative for difficulty urinating and hematuria. Skin: Negative for color change, rash and wound. Allergic/Immunologic: Negative for environmental allergies. Neurological: Negative for dizziness, syncope, numbness and headaches. Hematological: Negative for adenopathy. Does not bruise/bleed easily. Psychiatric/Behavioral: Negative for confusion. The patient is not nervous/anxious and is not hyperactive. Objective PHYSICAL EXAM BP 127/75 (BP Location: Left arm, Patient Position: Sitting) Pulse 100 Ht 177.8 cm (5' 10 ) Wt 76.1 kg (167 lb 12.8 oz) BMI 24.08 kg/m?? Right hip Inspection Erythema: absent Edema: absent Swelling: absent Effusion: absent Skin temperature: normal Surgical scar/wound: absent. Lower extremity alignment: neutral Gait: normal Limp: slight Supportive device: none Palpation Tenderness: present. The tenderness is located in the pubic ramus. Radiating pain: no. Pop or click: no. Pelvic stability AP stress: stable Pelvic stability lateral stress: stable Range of motion The patient has normal range of motion of the right hip. Stability The patient has normal stabiltiy of the right hip. Strength The patient has 5/5 strength throughout. Neurovascular The patient has normal vascular on the right side of their body. The patient has normal sensation. REVIEW OF X-RAYS/STUDIES/LABS Xr Pelvis 1 Or 2 Views Result Date: 08/12/2017 Narrative: Radiographs taken of the pelvis today reveal continued right inferior and superior pubicrami fractures with mild displacement with further callus formation but not yet complete fracture healing. Assessment/Plan Diagnoses and all orders for this visit: Closed fracture of right inferior pubic ramus with routine healing, subsequent encounter Closed fracture of right superior pubic ramus, initial encounter ([facility]) - XR Pelvis 1 or 2 Views PLAN Given the lack of complete fracture healing, I am going to have Mr. Lanza return to clinic in4-6 weeks for repeat x-rays. Hopefully we will see complete fracture healing at that visit and may discharge him from our care. I recommended he hold off on riding his bike until that time. He may contact our office with any further questions or concerns. KYAW Coffman documented in this encounter Plan of Treatment Not on file documented as of this encounter Procedures Procedure Name Priority Date/Time Associated Diagnosis Comments XR PELVIS 1 OR 2 VIEWS Schedule Routine, Read Routine (OP Routine) 08/12/2017 12:31 PM CDT Closed fracture of right superior pubic ramus, initial encounter ([facility]) documented in this encounter Results * XR Pelvis 1 or 2 Views (08/12/2017 12:31 PM CDT) Anatomical Region Laterality Modality Body, Pelvis N/A Digital Radiogra phy Narrative 08/12/2017 1:30 PM CDT Radiographs taken of the pelvis today reveal continued right inferior and superior pubic rami fractures with mild displacement with further callus formation but not yet complete fracture healing. Kelsey CARD IMG XR PROCEDURES Fin al Result documented in this encounter Visit Diagnoses Diagnosis Closed fracture of right inferior pubic ramus with routine healing, subsequent encounter- Primary Closed fracture of right superior pubic ramus, initial encounter documented in this encounter Care Teams Development Coach Relationship Specialty Start Date End Date Geovanni Saunders NP [address] [facility] [address] [place] [address] PCP - General 01/02/17 04/28/18 documented as of this encounter
--- OUTSIDE RECORDS SUMMARY | 2024-05-31 23:31 | XMS_ITS | Encounter Summary ---
Author Organization 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
--- OUTSIDE RECORDS SUMMARY | 2024-05-31 23:31 | XMS_ITS | Encounter Summary ---
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 11/24/2017 9:15 AM Posted [facility] ENDOSCOPY GI Cap Gastroenterology Outpatient Elective Panel 1 Procedure LRB Anes Op Region Wound Class Comments COLON BIOPSY N/A Monitor Anesthesia Care Class II - Clean Contaminated ESOPHAGOGASTRODUODENOSCOPY BIOPSY N/A Monitor Anesthesia Care Surgeon Surgeon Role Service Panel Dewayne Alaniz MD Primary Gastroenterology 1 documented in this encounter Social History Tobacco Use Types Packs/Day Years Used Date Smoking Tobacco: Former Smokeless Tobacco: Never Alcohol Use Standard Drinks/Week Comments Yes 0 (1 standard drink = 0.6 oz pur e alcohol) Sex and Gender Information Value Date Recorded Sex Assigned at Not on file 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.] tablet Take 140 mg by mouth, 0 pediatric multivitamin-iro n tablet,chewable Take by mouth. 01/09 0 tiZANidine (ZANAFLEX) 4 mg tablet Take 4 mg by mouth. 9 traZODone (DESYREL) 50 mg tablet Take 50 mg by mouth nightly. 0 documented as of this encounter Discharge Disposition Disposition Code Departure Means Destination Discharge to home or self care documented in this encounter H&P Notes * Dewayne Alaniz MD - 11/24/2017 10:29 AM CDT History and Physical Date of visit: 11/24/2017 Subjective: Patient is a 62 y.o. male presented for evaluation for weight loss and abnormal stool/diarrhea. Past Medical History: Diagnosis Date ??? Depression ??? Emphysema of lung (CMS/HCC) ??? Infectious viral hepatitis ??? Kidney stone ??? Melena Past Surgical History: Procedure Laterality Date ??? COLONOSCOPY 2009 Prescriptions Prior to Admission Medication Sig Dispense Refill Last Dose ??? albuterol HFA (PROVENTIL HFA,VENTOLIN HFA) 90 mcg/actuation inhaler Inhale. 11/23/2017 ??? ALPRAZolam (XANAX) 1 mg tablet 3 Past Week ??? BREO ELLIPTA 200-25 mcg/dose diskus inhaler 11/23/2017 ??? clonazePAM (KlonoPIN) 0.5 mg tablet Take 0.5 mg by mouth 2 (two) times a day. 11/23/2017 ??? ferrous sulfate 325 mg (65 mg of elemental iron) tablet Take 65 mg of elemental iron by mouth daily with breakfast. 11/23/2017 ??? methadone (DOLOPHINE) 10 mg tablet Take 140 mg by mouth, 11/24/2017 at Unknown time ??? omeprazole (PriLOSEC) 20 mg capsule Take 20 mg by mouth daily. 11/23/2017 ??? pediatric multivitamin-iron tablet,chewable Take by mouth. 11/23/2017 ??? sertraline (ZOLOFT) 50 mg tablet Take 50 mg by mouth daily. 11/23/2017 ??? tamsulosin (FLOMAX) 0.4 mg capsule,extended release 24hr Take 0.8 mg by mouth. 11/23/2017 ??? tiZANidine (ZANAFLEX) 4 mg tablet Take 4 mg by mouth. 11/23/2017 ??? traZODone (DESYREL) 50 mg tablet Take 50 mg by mouth nightly. Past Week at Unknown time ??? ibuprofen (ADVIL,MOTRIN) 800 mg tablet Unknown Allergies Allergen Reactions ??? Narcan [Naloxone] Other (See comments) Patient indicating he cannot have narcan no matter what (methodone prescription) Social History Substance Use Topics ??? Smoking status: Former Smoker ??? Smokeless tobacco: Never Used ??? Alcohol use Yes History reviewed. No pertinent family history. Physical Exam: Patient is awake and answers well. Eyes: no jaundice. Lungs: CTA anteriorly. ENT: no mouth ulcers. Abdomen: soft, no distention, no tenderness, bowel sounds positive. Extremities: no edema. Skin: no rash. GI IMPRESSION: 1. Weight loss. 2. Abnormal stool GI PLAN/RECOMMENDATIONS: 1. EGD and colonoscopy Dewayne Alaniz MD documented in this encounter Procedure Notes * Dewayne Alaniz MD - 11/24/2017 9:43 AM CDTAssociated Order(s): EGD [facility] Patient Name: Christal Lanza Procedure Date: 11/24/2017 9:43 AM Date of : 1955 Admit Type: Outpatient Age: 62 Gender: Male Attending MD: Dewayne Alaniz MD Room: [facility] Note Status: Finalized Patient Profile: 62 WM with unexplained weight loss, and abnormal stool/diarrhea Procedure: Upper GI endoscopy Indications: Diarrhea, Weight loss Referring MD: Geovanni Saunders NP Providers: Dewayne Alaniz MD Impression: - Normal examined duodenum. Biopsied. - Mild diffuse gastropathy. Biopsied for OMARI. - Mild esophagitis. Biopsied. Recommendation: - Await pathology results. - Return to my office at appointment to be scheduled. - Continue present medications. Medicines: Monitored Anesthesia Care Complications: No immediate complications. Estimated Blood Loss: Estimated blood loss: none. Procedure: Pre-Anesthesia Assessment: - Prior to the procedure, a History and Physical was performed, and patient medications and allergies were reviewed. The patient's tolerance of previous anesthesia was also reviewed. The risks and benefits of the procedure and the sedation options and risks were discussed with the patient. All questions were answered, and informed consent was obtained. Prior Anticoagulants: The patient has taken no previous anticoagulant or antiplatelet agents. ASA Grade Assessment: II - A patient with mild systemic disease. After reviewing the risks and benefits, the patient was deemed in satisfactory condition to undergo the procedure. The benefits, risks, and alternatives to the procedure and sedation were discussed and informed consent was obtained. The scope was passed under direct vision. The Endoscope GIF-H190 [id number] was introduced through the mouth, and advanced to the third part of duodenum. The upper GI endoscopy was accomplished without difficulty. The patient tolerated the procedure well. Findings: The examined duodenum was normal. Biopsies were taken with a cold forceps for histology. Diffuse mildly erythematous mucosa without bleeding was found in the entire examined stomach suggestive of gastropathy. Biopsies were taken with a cold forceps for Helicobacter pylori testing using CLOtest. Retroflexion in the stomach showed hiatal hernia 4-5 cm hiatal hernia noted below the GE junction. The Z-line was irregular. Biopsies were taken with a cold forceps for histology. Scattered mild mucosal changes characterized by white specks were found in the middle third of the esophagus. Biopsies were taken with a cold forceps for histology. Electronically signed by Dewayne Alaniz M.D. Dewayne Alaniz MD 11/24/2017 10:35:11 AM Number of Addenda: 0 Note Initiated On: 11/24/2017 9:43 AM Procedure Code(s): --- Professional --- 88836, Esophagogastroduodenoscopy, flexible, transoral; with biopsy, single or multiple Diagnosis Code(s): --- Professional --- K31.89, Other diseases of stomach and duodenum K22.8, Other specified diseases of esophagus R63.4, Abnormal weight loss R19.7, Diarrhea, unspecified CPT copyright 2017 [employer]. All rights reserved. The codes documented in this report are preliminary and upon hcc coders review may be revised to meet current compliance requirements. Recognized by the [place] [employer] for promoting quality in endoscopy * Dewayne Alaniz MD - 11/24/2017 9:42 AM CDTAssociated Order(s): COLONOSCOPY [facility] Patient Name: Christal Lanza Procedure Date: 11/24/2017 9:42 AM Date of : 1955 Admit Type: Outpatient Age: 62 Gender: Male Attending MD: Dewayne Alaniz MD Room: [facility] Note Status: Finalized Patient Profile: [...] Return to my office at appointment to be scheduled. - Will need CT abdomen and pelvis with contrast to complete evaluation. - Continue present medications. Medicines: Monitored Anesthesia Care Complications: No immediate complications. Estimated Blood Loss: Estimated blood loss: none. Procedure: Pre-Anesthesia Assessment: - Prior to the procedure, a History and Physical was performed, and patient medications and allergies were reviewed. The patient's tolerance of previous anesthesia was also reviewed. The risks and benefits of the procedure and the sedation options and risks were discussed with the patient. All questions were answered, and informed consent was obtained. Prior Anticoagulants: The patient has taken no previous anticoagulant or antiplatelet agents. ASA Grade Assessment: II - A patient with mild systemic disease. After reviewing the risks and benefits, the patient was deemed in satisfactory condition to undergo the procedure. The benefits, risks and alternatives of the procedure and sedation were discussed and informed consent was obtained. All questions were answered. Please refer to the signed informed consent document in the medical record. The scope was passed under direct vision. The Pediatric Colonoscope PCF-H190L [id number] was introduced through the anus and advanced to the the cecum, identified by appendiceal orifice and ileocecal valve. The colonoscopy was performed without difficulty. The patient tolerated the procedure well. The quality of the bowel preparation was good. Findings: The perianal and digital rectal examinations were normal. The colon (entire examined portion) appeared normal. Biopsies were taken with a cold forceps for histology. No polyps and no mass lesions. Internal hemorrhoids were found during retroflexion. The hemorrhoids were small. Electronically signed by Ahmad Karadaghy, M.D. Dewayne Alaniz MD 11/24/2017 10:37:43 AM Number of Addenda: 0 Note Initiated On: 11/24/2017 9:42 AM Procedure Code(s): --- Professional --- 81577, Colonoscopy, flexible; with biopsy, single or multiple Diagnosis Code(s): --- Professional --- K64.8, Other hemorrhoids R63.4, Abnormal weight loss R19.7, Diarrhea, unspecified CPT copyright 2017 [employer]. All rights reserved. The codes documented in this report are preliminary and upon hcc coders review may be revised to meet current compliance requirements. Recognized by the [place] [employer] for promoting quality in endoscopy documented in this encounter Plan of Treatment Not on file documented as of this encounter Procedures Procedure Name Priority Date/Time Associated Diagnosis Comments SURGICAL PATHOLOGY Routine 11/24/2017 2:42 PM CDT H. PYLORI UREASE SCREEN (OMARI TEST) STAT 11/24/2017 10:10 AM CDT EGD 11/24/2017 9:43 AM CDT ESOPHAGOGASTRODUODENOSCOPY BIOPSY 11/24/2017 9:43 AM CDT colonoscopy EGD unexplained wt loss COLON BIOPSY 11/24/2017 9:43 AM CDT colonoscopy EGD unexplained wt loss COLONOSCOPY 11/24/2017 9:42 AM CDT documented in this encounter Results * Surgical pathology (11/24/2017 2:42 PM CDT) 11/24/2017 2:42 PM CDT 11/24/2017 2:42 PM CDT Narrative 11/30/2017 12:24 PM CDT EPIC results best viewed via link to PDF [facility] Department of Pathology [address] [place] [address] Final Report Patient Name: ??CHRISTAL LANZA Address: ??[address] [place] [address], ??[place], [place] [address] Gender: ??M : ??1955 (Age: 62) Service: ??Gastro Location: [facility] #: ??[id number] Patient Type: ??[facility] SDS Accession # ?[id number] Taken: ??11/24/2017 Received: ??11/24/2017 Accessioned: ??11/24/2017 Reported: ??11/30/2017 Physician(s):Dr. Dewayne Alaniz M.D. Diagnosis: A. ??Colon, random, biopsy: ?- Melanosis coli. - No evidence of dysplasia or malignancy. B. ??Gastroesophageal junction, biopsy: ? - Acute esophagitis. - Cardiac-type mucosa with active inflammation. - No evidence of intestinal metaplasia, dysplasia, or malignancy. - PAS stain positive for rare fungal organisms. C. ??Esophagus, biopsy: ? - Acute esophagitis, consistent with Sheryl esophagitis. - No evidence of dysplasia or malignancy. - PAS stain positive for fungal organisms. D. ??Small intestine, biopsy: ? - Duodenal mucosa with no significant histopathologic abnormalities. ?? Silvestre Reich MD Report Electronically Reviewed and Signed Out By ??Silvestre Reich MD ??11/30/2017 12:24:34 Specimen(s) Received: A: Colon, biopsy B: EG Junction, Biopsy C: Esophageal Biopsy D: Small intestine biopsy Microscopic Description: A. ??Microscopic examination of the random colon biopsy specimen shows fragments of colonic mucosa which are unremarkable aside from melanosis coli. ??There is no evidence of dysplasia or malignancy. B. ??Microscopic examination of the gastroesophageal junction biopsy specimen shows multiple fragments of acutely inflamed squamous mucosa. ??Cardiac-type mucosa with active inflammation is also noted. ??Some mild nuclear enlargement and hyperchromasia are noted; in the context of acute inflammation these latter findings are favored to represent reactive/regenerative cellular changes. ??There is no evidence of intestinal metaplasia, dysplasia, or malignancy. ??No definitive Helicobacter organisms are identified on routine H&E staining. ??A Helicobacter immunostain is performed with appropriately reactive controls on block B1 and is negative. ??A PAS stain is performed with appropriately reactive controls on block B1 and highlights rare fungal hyphae. C. ??Microscopic examination of the esophageal biopsy specimen shows multiple fragments of acutely inflamed squamous mucosa. ??Some mild nuclear enlargement and hyperchromasia are noted; in the context of acute inflammation these latter findings are favored to represent reactive/regenerative cellular changes. ??There is no evidence of dysplasia or malignancy. ??A PAS stain is performed with appropriately reactive controls on block A1 and is positive, highlighting fungal yeast and hyphae consistent with Sheryl species. ?? D. ??Microscopic examination of the small intestine biopsy specimen shows fragments of duodenal mucosa with no significant histopathologic abnormalities. ??There is no significant increase in inflammatory cells within the lamina propria. ??There is no significant intraepithelial lymphocytosis nor is there evidence of villous blunting. ??There are no atypical infiltrates or evidence of malignancy. Clinical History: Unexplained weight loss. ??Random colon biopsy. ??GE junction biopsy. ??Esophagus biopsy. ??Small bowel biopsy. ??EGD. ??Colonoscopy. Gross Description: The specimen is received in 4 parts labeled Christal Jody Lanza . A. ??The first part is labeled random colon biopsy . ??It is four, for-5 mm pale zavala tissue fragments. ??Entirely submitted in A. B. ??The second part is labeled GE junction biopsy . ??It is three, 3-5 mm zavala tissue fragments. ??Entirely submitted in B. C. ??The third part is labeled esophagus . ??It is multiple less than 1 mm to 3 mm pale zavala to pink-zavala tissue fragments. ??Entirely submitted in C. D. ??The fourth part is labeled small bowel biopsy was . ??It is four, 3-4 mm zavala tissue fragments. ??Entirely submitted in D. ??Silvestre Reich MD/Catalina Long P.A. REPORT IMAGES AND SCANNED DOCUMENTS, IF INCLUDED, ONLY VIEWABLE IN PDF VERSION OF REPORT The performance characteristics of some immunohistochemical stains, fluorescence in-situ hybridization tests and immunophenotyping by flow cytometry cited in this report (if any) were determined by the Surgical Pathology Department at [facility] as part of an ongoing manufacturing quality technician program and in compliance with federally mandated regulations drawn from the Clinical Laboratory Improvement Act of 1988 (CLIA '88). ??Some of these tests rely on the use of analyte specific reagents and are subject to specific labeling requirements by the US Food and Drug Administration. ??Such diagnostic tests may only be performed in a facility that is certified by the Department of Health and Human Services as a high complexity laboratory under CLIA '88. The FDA has determined that such clearance or approval is not necessary. ??This test is used for clinical purposes. ??It should not be regarded as investigational or for research. ??Nevertheless, federal rules concerning the medical use of analyte specific reagents require that the following disclaimer be attached to the report: This test was developed and its performance characteristics determined by the Surgical Pathology Department [facility]. ??It has not been cleared or approved by the U. S. Food and Drug Administration. Dewayne Alaniz MD LAB PATHOLOGY ORDERABLES F inal Result * H. pylori urease screen (OMARI test) Biopsy Gastric/Stomach biopsy (11/24/2017 10:10 AM CDT) Report Final Report: Negative Omari Test [facility] ([facility]) Biopsy (Gastric/Stomach biopsy) 11/24/2017 10:10 AM CDT 11/25/2017 1:34 AM CDT Narrative [facility]) - 11/25/2017 10:34 AM CDT Dewayne Alaniz MD LAB MICROBIOLOGY - GENERAL ORDERABLES Final Result [facility] ([facility]) [facility] Department [place] [address] * EGD (11/24/2017 9:43 AM CDT) Anatomical Region Laterality Modality Other Narrative Procedure Note Dewayne Alaniz MD - 11/24/2017 9:43 AM CDT [facility] Patient Name: Christal Lanza Procedure Date: 11/24/2017 9:43 AM Date of : 1955 Admit Type: Outpatient Age: 62 Gender: Male Attending MD: Dewayne Alaniz MD Room: [facility] Note Status: Finalized Patient Profile: 62 WM with unexplained weight loss, and abnormal stool/diarrhea Procedure: Upper GI endoscopy Indications: Diarrhea, Weight loss Referring MD: Geovanni Saunders NP Providers: Dewayne Alaniz MD Impression: - Normal examined duodenum. Biopsied. - Mild diffuse gastropathy. Biopsied for OMARI. - Mild esophagitis. Biopsied. Recommendation: - Await pathology results. - Return to my office at appointment to bescheduled. - Continue present medications. Medicines: Monitored Anesthesia [...] condition to undergo the procedure. The benefits, risks, and alternatives to theprocedure and sedation were discussed and informed consent was obtained. The scope was passed under direct vision.The Endoscope GIF-H190 [id number] was introduced throughthe mouth, and advanced to the third part of duodenum.The upper GI endoscopy was accomplished withoutdifficulty. The patient tolerated the procedure well. Findings: The examined duodenum was normal. Biopsies were taken with a cold forceps for histology. Diffuse mildly erythematous mucosa without bleeding was found in the entire examined stomach suggestive of gastropathy. Biopsies weretaken with a cold forceps for Helicobacter pylori testing using CLOtest. Retroflexion in the stomach showed hiatal hernia 4-5 cm hiatal hernia noted below the GE junction. The Z-line was irregular. Biopsies were taken with a cold forceps for histology. Scattered mild mucosal changes characterized by white specks werefound in the middle third of the esophagus. Biopsies were taken with a cold forceps for histology. Electronically signed by Dewayne Alaniz M.D. Dewayne Alaniz MD 11/24/2017 10:35:11 AM Number of Addenda: 0 Note Initiated On: 11/24/2017 9:43 AM Procedure Code(s): --- Professional --- 46930, Esophagogastroduodenoscopy, flexible, transoral; with biopsy, single or multiple Diagnosis Code(s): --- Professional --- K31.89, Other diseases of stomach and duodenum K22.8, Other specified diseases of esophagus R63.4, Abnormal weight loss R19.7, Diarrhea, unspecified CPT copyright 2017 [employer]. All rights reserved. The codes documented in this report are preliminary and upon hcc coders reviewmay be revised to meet current compliance requirements. Recognized by the [place] [employer] for promoting quality in endoscopy us Dewayne Alaniz MD ENDOSCOPY PROCEDURES Final Result * COLONOSCOPY (11/24/2017 9:42 AM CDT) Anatomical Region Laterality Modality Other Narrative Procedure Note Dewayne Alaniz MD - 11/24/2017 9:42 AM CDT [facility] Patient Name: Christal Lanza Procedure Date: 11/24/2017 9:42 AM Date of : 1955 Admit Type: Outpatient Age: 62 Gender: Male Attending MD: Dewayne Alaniz MD Room: [facility] Note Status: Finalized Patient Profile: 62 WM with unexplained weight loss, and abnormal stool/diarrhea, no family h/o colon cancer. 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 Biopsied. - Internal hemorrhoids. Recommendation: - Await pathology results. - Return to my office at appointment to [facility]. - Will need CT abdomen and pelvis [...] passed under direct vision.The Pediatric Colonoscope PCF-H190L [id number] was introduced through the anus and advanced [...] 9:42 AM Procedure Code(s): --- Professional --- 50949, Colonoscopy, flexible; with biopsy, single or multiple Diagnosis Code(s): --- Professional --- K64.8, Other hemorrhoids R63.4, Abnormal weight loss R19.7, Diarrhea, unspecified CPT copyright 2017 [employer]. All rights reserved. The codes documented in this report are preliminary and upon hcc coders reviewmay be revised to meet current compliance requirements. Recognized by the [place] [employer] for promoting quality in endoscopy Dewayne Alaniz MD ENDOSCOPY PROCEDURES Final Result documented in this encounter Visit Diagnoses Not on filedocumented in this encounter Administered Medications Inactive Administered Medications - up to 3 most recent administrations Medication Order MAR Action Action Date Dose Rate Site ondansetron (ZOFRAN) injection 4 mg 4 mg, intravenous, Every 30 min PRN, nausea, vomiting, Starting on Thu11/24/17 at 0823, For 2 doses, Recovery (GI), Indications: Nausea and VomitingIndications:Nausea and Vomiting sodium chloride 0.9% infusion 30 mL/hr, intravenous, Continuous, Starting on Thu11/24/17 at 0900, Pre-Procedure (GI) sodium chloride 0.9% infusion 125 mL/hr, intravenous, Continuous, Starting on Thu11/24/17 at 0900, Recovery (GI) New Bag 11/24/2017 9:52 AM CDT New Bag 11/24/2017 9:02 AM CDT 125 mL/hr 125 mL/hr documented in this encounter Discontinued Medications Medication Sig Discontinue Reason Start Date End Da te amoxicillin-clavulanate (AUGMENTIN) 875-125 mg per tablet Therapy completed 06/19/2016 11/24/2017 finasteride (PROSCAR) 5 mg tablet Therapy completed 06/23/2017 11/24/2017 cetirizine (ZyrTEC) 10 mg tablet Take 10 mg by mouth. Therapy completed 11/24/2017 HYDROcodone-acetaminophen (NORCO) 5-325 mg per tabletIndications:Pain Therapy completed 06/12/2017 018 mometasone (ASMANEX HFA) 200 mcg/actuation HFA aerosol inhaler Therapy completed 05/28/2016 11/24/2017 documented as of this encounter Historical Medications * This list may reflect changes made after this encounter. sertraline (ZOLOFT) 50 mg tablet Take 100 mg by mouth daily clonazePAM (KlonoPIN) 0.5 mg tablet Take 0.5 mg by mouth 3 (three) times a day as needed for anxiety omeprazole (PriLOSEC) 20 mg capsule Take 20 mg by mouth daily. ferrous sulfate 325 mg (65 mg of elemental iron) tabletIndication s:Iron Deficiency Anemia Take 65 mg of elemental iron by mouth daily with breakfast. 0 traZODone (DESYREL) 50 mg tablet Take 50 mg by mouth nightly. 0 added in this encounter Active and Recently Administered Medications Times are shown in CDT. Continuous Medication Order 11/22/2017 11/23/2017 11/24/2017 sodium chloride 0.9% infusion 30 mL/hr, intravenous, Continuous, Starting on Thu11/24/17 at 0900, Pre-Procedure (GI) 0900 (Due) sodium chloride 0.9% infusion 125 mL/hr, intravenous, Continuous, Starting on Thu11/24/17 at 0900, Recovery (GI) 0902 (New Bag - Prov ider: Kaleigh Bueno RN)0952 (New Bag - Provider: Kelsi Smart MD)1024 (Anesthesia Volume Adjustment - Provider: Zakia Bennett CRNA) PRN Medication Order 11/22/2017 11/23/2017 11/24/2017 ondansetron (ZOFRAN) injection 4 mg 4 mg, intravenous, Every 30 min PRN, nausea, vomiting, Starting on Thu11/24/17 at 0823, For 2 doses, Recovery (GI), Indications: Nausea and Vomiting documented in this encounter Orders Medications Ordered That Carloz ht Not Have Been Administered Count Last Ordered Date First Ordered Date ondansetron (ZOFRAN) injection 4 mg 1 11/24 sodium chloride 0.9% infusion 1 11/24/2017 Lab Orders Without Results Count Last Ordered D ate First Ordered Date SURGICAL PATHOLOGY 1 11/24/2017 documented in this encounter Care Teams Tape Duplicator Relationship Specialty Start Date End Date Geovanni Saunders NP [address] [place] [address] [address] [place] [address] PCP - General 01/02/17 04/28/18 documented as of this encounter
--- OUTSIDE RECORDS SUMMARY | 2024-05-31 23:31 | XMS_ITS | Encounter Summary ---
Author Organization [facility] Healthcare Address [address] [place] [address] Care Team Providers Care Quality Assurance Coordinator Name Role Phone Miscellaneous, Not In File Primary Care Provider Unavailable Reason for Visit * Reason Comments bruising Encounter Details Date Type Department Care Team (Late st Contact Info) Description 04/29/2018 3:48 PM SUPERVISOR FILLING AND PACKING - 04/29/2018 4:59 PM SUPERVISOR FILLING AND PACKING Emergency [facility] Emergency Department [address] [place] [address] Suhas Sam MD 1 [facility] [address] Contusion of upper extremity, unspecified laterality, initial encounter (Primary Dx); Elevated partial thromboplastin time (PTT) Discharge Disposition: Discharge to home or self care Social History Tobacco Use Types Packs/Day Years Used Date Smoking Tobacco: Former Smokeless Tobacco: Never Alcohol Use Standard Drinks/Week Comments Yes 0 (1 standard drink = 0.6 oz pur e alcohol) Sex and Gender Information Value Date Recorded Sex Assigned at Not on file Legal Sex Male 11:14 AM SUPERVISOR FILLING AND PACKING Gender Identity Not on file Sexual Orientation Not on file documented as of this encounter Last Filed Vital Signs Vital Sign Reading Time Taken Comments Blood Pressure 112/71 04/29/2018 4:33 PM SUPERVISOR [employer]ILLING [employer] PACKING Pulse 71 04/29/2018 4:33 PM SUPERVISOR FILLING [employer] PACKING Temperature 36.3 ??C (97.3 ??F) 04/29/2018 4:33 PM CS T Respiratory Rate 20 04/29/2018 4:33 PM SUPERVISOR FILLING [employer] PACKING Oxygen Saturation 95% 04/29/2018 4:33 PM SUPERVISOR FILLING AND PACKING Inhaled Oxygen Concentration - - Weight 68.9 kg (152 lb) 04/29/2018 4:33 PM SUPERVISOR FILLING [employer] PACKING Height 177.8 cm (5' 10 ) 04/29/2018 4:33 PM SUPERVISOR FILLING [employer] PACKING Body Mass Index 21.81 04/29/2018 4:33 PM SUPERVISOR [employer]ILLING [employer] PACKING documented in this encounter Discharge Instructions * Discharge Instructions* Suhas Sam MD - 04/29/2018 4:55 PM SUPERVISOR FILLING AND PACKING Please return to the ED if having DrShahana Javed stools, lightheadedness, chest pain, or for any other concerns. [employer] * Attachments The following attachments cannot be sent through Care Everywhere. * Soft Tissue Contusion (Ecuadorean) documented in this encounter Medications at Time [...] mcg tablet Take 88 mcg by mouth supervisor speech before breakfast 04/12/2018 0 methadone (DOLOPHINE) 10 mg tablet Take 140 mg by mouth, 0 pediatric multivitamin-iro n tablet,chewable Take by mouth. 01/09 0 raNITIdine (ZANTAC) 300 mg tablet 04/12/2018 0 tiZANidine (ZANAFLEX) 4 mg tablet Take 4 mg by mouth. 9 traZODone (DESYREL) 50 mg tablet Take 50 mg by mouth nightly. 0 documented as of this encounter Discharge Disposition Disposition Code Departure Means Destination Discharge to home or self care documented in this encounter ED Notes * Franchesca Oh RN - 04/29/2018 4:32 PM CST Patient presents to the emergency room for evaluation of bruising without injury to bilateral arms.Patient in no distress. [employer] * Suhas Sam MD - 04/29/2018 4:09 PM CST HPI Chief Complaint Patient presents with ??? bruising 62-year-old gentleman with past medical history depression, opiate addiction, and hepatitis C the presents today with skin changes. Patient states that the changes on the skin have-approximately 2 days ago, located on his dorsal bilateral lower arms, is not pruritic, is not painful. Patient states he has had this before however not this bad. He does not recall any trauma although he did help movefurniture yesterday. Patient History Patient Active Problem List Diagnosis Date Noted ??? Closed fracture of right inferior pubic ramus (CMS/HCC) 06/16/2017 ??? Closed fracture of right superior pubic ramus (CMS/HCC) 06/16/2017 ??? Unspecified urinary incontinence 04/14/2017 Class: Chronic ??? Calculus of urinary bladder 01/27/2017 Class: Chronic Past Medical History: Diagnosis Date ??? Depression ??? Emphysema of lung (CMS/HCC) ??? Infectious viral hepatitis ??? Kidney stone ??? Melena Past Surgical History: Procedure Laterality Date ??? COLONOSCOPY 2009 History reviewed. No pertinent family history. Social History Substance Use Topics ??? Smoking status: Former Smoker ??? Smokeless tobacco: Never Used ??? Alcohol use Yes Social History Social History Narrative ??? No narrative on file Review of Systems Review of Systems Constitutional: Negative for fever. HENT: Negative for congestion. Eyes: Negative for redness. Respiratory: Negative for shortness of breath. Cardiovascular: Negative for chest pain. Gastrointestinal: Negative for abdominal pain. Genitourinary: Negative for dysuria. Musculoskeletal: Negative for joint swelling. Skin: Positive for rash. Neurological: Negative for weakness. Psychiatric/Behavioral: Negative for agitation. All other systems reviewed and are negative. Physical Exam ED Triage Vitals [04/29/18 1633] Temp Pulse Resp BP SpO2 36.3 ??C (97.3 ??F) 71 20 112/71 95 % Temp src Heart Rate Source Patient Position BP Location FiO2 (%) Temporal -- -- -- -- Physical Exam Constitutional: He is oriented to person, place, and time. He appears well- developed and well-nourished. No distress. HENT: Head: Normocephalic and atraumatic. Eyes: Conjunctivae and EOM are normal. Neck: Normal range of motion. Musculoskeletal: Normal range of motion. Neurological: He is alert and oriented to person, place, and time. Skin: Skin is warm and dry. Capillary refill takes less than 2 seconds. Rash (Recommended rashes noted on the dorsal surfaces of both arms bilaterally) noted. He is not diaphoretic. Psychiatric: He has a normal mood and affect. Nursing note and vitals reviewed. MDM MDM Number of Diagnoses or Management Options Diagnosis management comments: 62-year-old male with history of chronic hepatitis C the presents today for acute skin changes. Given the presentation the parents the skin a feel this time that is likely a bruise secondary to his liver disease. This being stated like to evaluate further with using aCBC CMP the for signs of infection and his hepatic function. Additionally ordered some coagulation studies to evaluate for bleeding risk. ED Course as of Apr 29 1657 Time: 04/29 1637 Comment: Mild anemia By: Suhas Sam MD Time: 04/29 1647 Value: aPTT: (!) 38.1 Comment: Elevated suspect liver disease. By: Suhas Sam MD Time: 04/29 1647 Comment: CMP reassuring By: Suhas Sam MD Time: 04/29 1656 Comment: Discussion with the patient that this bleeding is likely secondary to his elevated PTT andchronic hepatitis C. patient is satisfied with his discussion had multiple questions about seeking further hepatitis care. Advised follow-up with primary care physician has got elevated coagulation studies now he might be considered for treatment of this would be the decision of a specialist. Sincethe discussed return precautions and follow up with the patient prior to discharge answer all questions prior to discharge patient was discharged to a stable condition By: Suhas Sam MD Contusion of upper extremity, unspecified laterality, initial encounter Elevated partial thromboplastin time (PTT) Suhas Sam MD 04/29/187 [employer] documented in this encounter Plan of Treatment Not on file documented as of this encounter Procedures Procedure Name Priority Date/Time Associated Diagnosis Comments EGFR STAT 04/29/2018 4:19 PM SUPERVISOR FILLING [employer] PACKING DIFFERENTIAL AUTO STAT 04/29/2018 4:1 9 PM SUPERVISOR FILLING [employer] PACKING CBC WITH AUTO DIFFERENTIAL STAT 04/29/2018 4:19 PM SUPERVISOR FILLING [employer] PACKING APTT STAT 04/29/2018 4:19 PM SUPERVISOR FILLING [employer] PACKING PROTIME-INR STAT 04/29/2018 4:19 PM SUPERVISOR FILLING [employer] PACKING COMPREHENSIVE METABOLIC PANEL STAT 04/29/2018 4:19 PM SUPERVISOR FILLING [employer] PACKING documented in this encounter Results * eGFR (04/29/2018 4:19 PM SUPERVISOR FILLING [employer] PACKING) eGFR >60 mL/min/1.7 3 m2 [facility] ([place]) Comment: Interpretive Data Reference Interval Normal ?>/= 90 mL/min/1.73m2 Mildly decreased* ? 60 - 89 mL/min/1.73m2 Mildly to moderately decreased ?45 - 59 mL/min/1.73m2 Moderately to severely decreased ??30 - 44 mL/min/1.73m2 Severely decreased ?15 - 29 mL/min/1.73m2 Kidney Failure ?< 15 ??mL/min/1.73m2 *Relative to young adult level If -Salvadorean multiply value by 1.16. Estimated glomerular filtration [...] was last reviewed 2015. Blood specimen (specimen) 04/29/2018 4:19 PM SUPERVISOR FILLING AND PACKING 04/29/2018 4:23 PM SUPERVISOR FILLING AND PACKING Narrative [facility]) - 04/29/2018 4:43 PM SUPERVISOR FILLING [employer] PACKING us Suhas Sam MD LAB BLOOD ORDERABLES Final R esult [facility] ([place]) 1 [facility] [place] [address] * Differential, auto (04/29/2018 4:19 PM SUPERVISOR FILLING [employer] PACKING) Neutrophil abs 5.2 1.7 - 6.5 K/cumm [facility] ([place]) Imm gran abs 0.0 0.0 - 0.1 K/cumm [facility] ([place]) Lymphocyte abs 1.3 0.8 - 3.3 K/cumm [facility] ([place]) Monocyte abs 0.6 0.2 - 0.8 K/cumm [facility] ([place]) Eosinophil abs 0.4 0.0 - 0.5 K/cumm [facility] ([place]) Basophil abs 0.1 0.0 - 0.1 K/cumm [facility] ([place]) Neutrophil pct 68.5 % [facility] ([place]) Comment: Interpretive [...] was last revised on 2017. Lymphocyte pct 17.5 % [facility] ([place]) Comment: Interpretive Data Percent cell count reference ranges are not reported, since discordance with absolute values may lead to misinterpretation of CBC data. Current Interpretive Data was last revised on 2017. Monocyte pct 7.7 % [facility] ([place]) Comment: Interpretive Data Percent cell count reference ranges are not reported, since discordance with absolute values may lead to misinterpretation of CBC data. Current Interpretive Data was last revised on 2017. Eosinophil pct 4.8 % [facility] ([place]) Comment: Interpretive Data Percent cell count reference ranges are not reported, since discordance with absolute values may lead to misinterpretation of CBC data. Current Interpretive Data was last revised on 2017. Basophil pct 1.0 % [facility] ([place]) Comment: Interpretive Data Percent cell count reference ranges are not reported, since discordance with absolute values may lead to misinterpretation of CBC data. Current Interpretive Data was last revised on 2017. Blood specimen (specimen) 04/29/2018 4:19 PM SUPERVISOR FILLING [employer] PACKING 04/29/2018 4:23 PM SUPERVISOR FILLING AND PACKING Narrative [facility] ([place]) - 04/29/2018 4:25 PM SUPERVISOR FILLING [employer] PACKING Suhas Sam MD LAB BLOOD ORDERABLES Final R esult [facility] ([place]) 1 [facility] [place] [address] * Protime-INR (04/29/2018 4:19 PM SUPERVISOR FILLING AND PACKING) PT 12.5 9.5 - 13.0 sec [facility] ([place]) INR 1.11 0.90 - 1.20 [facility] ([place]) Comment: Interpretive Data Recommended ranges for Protime INR: 2.0 - 3.0 Most indications for Warfarin therapy (e.g. Treatment of DVT, PE, bioprosthetic valve replacement, prophylaxis venous thrombosis, atrial fibrillation). 2.5 - 3.5 Mechanical mitral valve or dual mechanical mitral and Aortic valve replacement. Current Interpretive Data was last revised on 2015. Blood specimen (specimen) 04/29/2018 4:19 PM SUPERVISOR FILLING AND PACKING 04/29/2018 4:23 PM SUPERVISOR FILLING AND PACKING Narrative [facility] ([place]) - 04/29/2018 4:36 PM SUPERVISOR FILLING [employer] PACKING us Suhas Sam MD LAB BLOOD ORDERABLES Final R esult Performing Organization Address City/[facility]/ZIP Co de Phone Number [facility] ([place]) 1 [facility] [place] [address] * (ABNORMAL) aPTT (04/29/2018 4:19 PM SUPERVISOR FILLING AND PACKING) aPTT 38.1(H) 25.0 - 37.0 sec [facility] ([place]) Blood specimen (specimen) 04/29/2018 4:19 PM SUPERVISOR FILLING AND PACKING 04/29/2018 4:23 PM SUPERVISOR FILLING AND PACKING Narrative [facility] ([place]) - 04/29/2018 4:39 PM SUPERVISOR FILLING AND PACKING us Suhas Sam MD LAB BLOOD ORDERABLES Final R esult [facility] ([place]) 1 [facility] [place] [address] * Comprehensive metabolic panel (04/29/2018 4:19 PM SUPERVISOR FILLING [employer] PACKING) Sodium 138 135 - 145 mmol/L [facility] ([place]) Potassium, pl 3.9 3.3 - 4.9 mmol/L [facility] ([place]) Chloride 100 97 - 110 mmol/L [facility] ([place]) CO2 25 22 - 32 mmol/L [facility] ([place]) Anion gap 13 2 - 15 mmol/L [facility] ([place]) BUN 16 8 - 25 mg/dL [facility] ([place]) Creatinine 0.93 0.80 - 1.30 mg/dL [facility] ([place]) Glucose 78 70 - 199 mg/dL [facility] ([place]) [...] interpretive data was last revised 2017. Calcium 9.1 8.5 - 10.3 mg/dL [facility] ([place]) Bilirubin, total 0.6 0.1 - 1.2 mg/dL [facility] ([place]) Protein, pl 8.3 6.5 - 8.5 g/dL [facility] ([place]) Albumin 3.8 3.5 - 5.0 g/dL [facility] ([place]) Alk phos 59 40 - 130 Units/L [facility] ([place]) ALT 19 7 - 55 Units/L [facility] ([place]) AST 43 10 - 50 Units/L [facility] ([place]) Blood specimen (specimen) 04/29/2018 4:19 PM SUPERVISOR FILLING [employer] PACKING 04/29/2018 4:23 PM SUPERVISOR FILLING AND PACKING Narrative [facility] ([place]) - 04/29/2018 4:43 PM SUPERVISOR FILLING [employer] PACKING us Suhas Sam MD LAB BLOOD ORDERABLES Final R esult [facility] ([place]) 1 [facility] [place] [address] * (ABNORMAL) CBC with auto differential (04/29/2018 4:19 PM SUPERVISOR FILLING [employer] PACKING) WBC 7.6 3.8 - 9.9 K/cumm [facility] ([place]) Hgb 12.5(L) 13.0 - 17.5 g/dL [facility] ([place]) Hct 37.6(L) 38.9 - 50.3 % [facility] ([place]) Plt 147(L) 150 - 400 K/cumm [facility] ([place]) MPV 9.2 9.1 - 12.3 fL [facility] ([place]) RBC 4.19(L) 4.30 - 5.80 M/cumm [facility] ([place]) MCV 89.7 81.3 - 96.4 fL [facility] ([place]) MCH 29.8 27.1 - 33.3 pg [facility] ([place]) MCHC 33.2 32.3 - 35.7 g/dL [facility] ([place]) RDW CV 13.4 11.1 - 14.9 % [facility]) RDW SD 44.2 35.7 - 48.1 fL [facility] ([place]) NRBC abs 0.00 0.00 - 0.01 K/cumm [facility] ([place]) Blood specimen (specimen) 04/29/2018 4:19 PM SUPERVIS[employer] FILLING [employer] PACKING 04/29/2018 4:23 PM SUPERVISOR FILLING AND PACKING Narrative [facility] ([place]) - 04/29/2018 4:25 PM SUPERVIS[employer] FILLING [employer] PACKING us Suhas Sam MD LAB BLOOD ORDERABLES Final R esult [facility] [place] 1 [facility] [place] [address] documented in this encounter Visit Diagnoses Diagnosis Contusion of upper extremity, unspecified laterality, initial encounter- Primary Elevated partial thromboplastin time (PTT) Abnormal coagulation profile documented in this encounter Historical Medications * This list may reflect changes made after this encounter. levothyroxine (SYNTHROID, LEVOTHROID) 100 mcg tablet Take 88 mcg by mouth supervisor speech before breakfast 04/12/2018 0 raNITIdine (ZANTAC) 300 mg tablet 04/12/2018 0 added in this encounter Care Teams Quality Assurance Coordinator Relationship Specialty Start Date End Date Miscellaneous, Not In File PCP - General 04/29/1805/13 documented as of this encounter
--- OUTSIDE RECORDS SUMMARY | 2024-05-31 23:31 | XMS_ITS | Encounter Summary ---
Author Organization [facility] Healthcare Address [address] [place] [address] Care Team Providers Care City Engineer Name Role Phone Geovanni Saunders APPLICATION ARCHITECT MANAGER Primary Care Provider + Reason for Referral * (Routine) - Closed Specialty Diagnoses / Procedures Referred By Contac t Referred To Contact Diagnoses Cardiac arrhythmia, unspecified cardiac arrhythmia type Procedures 48 HR Holter Monitor Robin Hernadez PA Phone: tel: fax: [address] [phone] Referral ID Status Reason Start Date Expiration Date Visits Re quested Visits Authorized [id number] Closed 12/02/2017 06/13/2019 1 1 Reason for Visit * (Routine) - Closed Specialty Diagnoses / Procedures Referred By Contac t Referred To Contact Diagnoses Cardiac arrhythmia, unspecified cardiac arrhythmia type Procedures 48 HR Holter Monitor Robin Hernadez PA Phone: tel: fax: [address] [phone] Referral ID Status Reason Start Date Expiration Date Visits Re quested Visits Authorized [id number] Closed 12/02/2017 06/13/2019 1 1 Encounter Details Date Type Department Care Team (Latest Contact Info) Description 12/07/2017 7:54 AM CDT - 12/07/2017 11:59 PM CDT Hospital Encounter [facility] Cardiology [address] [place] [id number] Robin Hernadez PA [address] [place] [address] Nikos Drake MD [address] [place] [address] Cardiac arrhythmia, unspecified cardiac arrhythmia type Discharge Disposition: Discharge to home or self care Social History Tobacco Use Types Packs/Day Years Used Date Smoking Tobacco: Former Smokeless Tobacco: Never Alcohol Use Standard Drinks/Week Comments Yes 0 (1 standard drink = 0.6 oz pur e alcohol) Sex and Gender Information Value Date Recorded Sex Assigned at Not on file Legal Sex Male 11:14 AM ADMEASURER Gender Identity Not on file Sexual Orientation [...] Procedure Name Priority Date/Time Associated Diagnosis Comments HOLTER MONITOR 48 HR Routine 12/07/2017 8:29 AM CDT Cardiac arrhythmia, unspecified cardiac arrhythmia type documented in this encounter Results * 48 HR Holter Monitor (12/07/2017 8:29 AM CDT) Anatomical Region Laterality Modality Electrocardiogra phy 12/07/2017 8:18 AM CDT Narrative 12/15/2017 11:04 AM CDT [address] [address] HOLTER MONITOR Patient Name: CHRISTAL LANZA LEE : 1956 Study Date: 12/07/2017 08:18:42 Gender: M Tech: Location: Ref.Physician: ROBIN HERNADEZ Height(Cm): BSA: Weight(Kg): Order Physician: ROBIN HERNADEZ Procedures: Holter Report: Holter Monitor Report. Indications: cardiac arrhythmia, unspecified. Measurements: Holter_Data Measurement ?Value ? Units ? Min Rate: ?41 ?BPM ? Min Rate Timestamp: ?01:06:05 ? Max Rate: ?108 ? BPM ? Max Rate Timestamp: ?11:52:09 ? Mean Rate: ? 67 ?BPM ? AFib (% of study): ? 0 ? percent ? AFib Peak Rate: ?0.0 ? BPM ? Singlets (PACs): ? 145 ? events ? Couplets (PACs): ? 79 ?events ? Runs (SVT): ?19 ?events ? Singlets (PVCs): ? 202 ? events ? Couplets (PVCs): ? 3 ? events ? Runs (VT): ? 0 ? events ? Longest RR: ?1.71 ?sec ? Longest RR Timestamp: ?01:10:27 ? RRs > 2sec: ?0 ? events ? SVT Fastest Run: ? 118 ? BPM ? SVT Longest Run: ? 8 ? beats ? VT Fastest Run: ?0 ? BPM ? VT Longest Run: ?0 ? beats ? Findings: Protocol: Recording Duration (Ordered): 48 hr, 0 min. Recording Duration (Actual): 42 hr, 22 min. Recorder: H3+. Total QRS: 94649. Date Recorded: 2017-12-07 08:18:42. Date Processed: 2017-12-07 00:00:00. Shift Engineer:. Application Tech: . Conclusions: 1. Predominant rhythm is normal sinus rhythm. 2. Heart rate and rate variability is appropriate. 3. No prolonged pauses. 4. Two asymptomatic PAT episodes lasting 3 beats and 8 beats. 5. Patient's symptom was not associated with anything significant. Electronically Signed By: Dr Leo Jackson 2017-12-09 13:42:22 CDT CC: CC: Procedure Note Leo Jackson MD - 12/15/[address] [address] HOLTER MONITOR Patient Name: CHRISTAL LANZA LEEPatient ID: [id number] : [id number] Date: 12/07/2017 08:18:42 Gender: MAccession #: [id number] Tech: Location: Ref.Physician: ROBIN HERNADEZHeight(Cm): BSA: Weight(Kg): Order Physician: ROBIN HERNADEZ Procedures: Holter Report: Holter Monitor Report. Indications: cardiac arrhythmia, unspecified. Measurements: Holter_Data Measurement Value Units Min Rate: 41 BPM Min Rate Timestamp: 01:06:05 Max Rate: 108 BPM Max Rate Timestamp: 11:52:09 Mean Rate: 67 BPM AFib (% of study): 0 percent AFib Peak Rate: 0.0 BPM Singlets (PACs): 145 events Couplets (PACs): 79 events Runs (SVT): 19 events Singlets (PVCs): 202 events Couplets (PVCs): 3 events Runs (VT): 0 events Longest RR: 1.71 sec Longest RR Timestamp: 01:10:27 RRs > 2sec: 0 events SVT Fastest Run: 118 BPM SVT Longest Run: 8 beats VT Fastest Run: 0 BPM VT Longest Run: 0 beats Findings: Protocol: Recording Duration (Ordered): 48 hr, 0 min. Recording Duration (Actual): 42 hr, 22 min. Recorder: H3+. Total QRS: 68005. Date Recorded: 2017-12-07 08:18:42. Date Processed: 2017-12-07 00:00:00. Shift Engineer:. Application Tech: . Conclusions: 1. Predominant rhythm is normal sinus rhythm. 2. Heart rate and rate variability is appropriate. 3. No prolonged pauses. 4. Two asymptomatic PAT episodes lasting 3 beats and 8 beats. 5. Patient's symptom was not associated with anything significant. Electronically Signed By: Dr Leo Jackson 2017-12-09 13:42:22 CDT CC: CC: Robin [facility]AN[facility] Final Result documented in this encounter Visit Diagnoses Diagnosis Cardiac arrhythmia, unspecified cardiac arrhythmia type documented in this encounter Care Teams City Engineer Relationship Specialty Start Date End Date Geovanni Saunders NP [address] [facility] [address], [place] [address] PCP - General 01/02/17 04/28/18 documented as of this encounter
--- OUTSIDE RECORDS SUMMARY | 2024-05-31 23:31 | XMS_ITS | Encounter Summary ---
Author Organization [facility] Healthcare Address [address] [place] [address] Care Team Providers Care Tier And Detonator Name Role Phone Geovanni Saunders STAND UP COMEDIAN Primary Care Provider + Reason for Visit * Reason Comments Altered Mental Status Encounter Details Date Type Department Care Team (Late st Contact Info) Description 06/28/2017 10:13 PM CLINICAL MICROBIOLOGIST - 06/29/2017 12:59 AM CLINICAL MICROBIOLOGIST Emergency [facility] Emergency Department [address] [place] [address] Ignacio Sue MD [address] [place] [id number] Transient alteration of awareness (Primary Dx); Drug-induced fever; Substance abuse Discharge Disposition: Discharge to home or self care Social History Tobacco Use Types Packs/Day Years Used Date Smoking Tobacco: Former Smokeless Tobacco: Never Alcohol Use Standard Drinks/Week Comments Yes 0 (1 standard drink = 0.6 oz pur e alcohol) Sex and Gender Information Value Date Recorded Sex Assigned at Not on file Legal Sex Male 11:14 AM CLINICAL MICROBIOLOGIST Gender Identity Not on file Sexual Orientation Not on file documented as of this encounter Last Filed Vital Signs Vital Sign Reading Time Taken Comments Blood Pressure 109/46 06/29/2017 12:45 AM CLINICAL MICROBIOLOGIST Pulse 104 06/29/2017 12:45 AM CLINICAL MICROBIOLOGIST Temperature 38.2 ??C (100.7 ??F) 06/29/2017 12:45 AM CLINICAL MICROBIOLOGIST Respiratory Rate 16 06/29/2017 12:45 AM CLINICAL MICROBIOLOGIST Oxygen Saturation 93% 06/29/2017 12:45 AM CLINICAL MICROBIOLOGIST Inhaled Oxygen Concentration - - Weight - - Height - - Body Mass Index - - documented in this encounter Discharge Instructions * Discharge Instructions* Ignacio Sue MD - 06/29/2017 12:28 AM CLINICAL MICROBIOLOGIST Follow up with your doctor to get a referral for an outpatient MRI of the brain. Decrease the dose of the Zanaflex to one pill twice a day only. ICAL MICROBIOLOGIST * Attachments The following attachments cannot be sent through Care Everywhere. * Altered Level of Consciousness (LOC) (Nepalese) documented in this encounter Medications at Time [...] documented in this encounter ED Notes * Ignacio Sue MD - 06/28/2017 11:43 PM CST HPI Chief Complaint Patient presents with ??? Altered Mental Status 10:13 PM 06/28/2017 Patient is a 62 y/o male with hx of Hep. C and emphysema who presents to the ED for evaluation of alterd LOC. 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 EMS state that the patient was warm to the touch and tachycardic. The patient followed simple commands but was unable to liftleft arm completely. He was found to be incontinent and stated that it pedro when he urinates. EMS a lso states the patient is a methadone user and is known to [place] with his medications . Patient has a history of a fall one week ago with a pelvic fracture to which he received Oxycontin for. 11:43 PM 06/28/2017 Per daughter, she received a call from her mother stating that the patient was yelling out in pain.Daughter came to the house and found the patient stating something was wrong but was unable to verbalize what. Daughter also states that the patient was confused as he gave the wrong birthdate and was unable to put his pants on correctly. Daughter states the patient was depressed yesterday but not confused or in pain. Patient currently taking Methadone, Xanax and muscle relaxers. Patient denies taking any extra home medications or illicit drug use. Patient History Patient Active Problem List Diagnosis Date Noted ??? Closed fracture of right inferior pubic ramus (CMS/HCC) 06/16/2017 ??? Closed fracture of right superior pubic ramus (CMS/HCC) 06/16/2017 Past Medical History: Diagnosis Date ??? Depression ??? Emphysema of lung (CMS/HCC) ??? Infectious viral hepatitis ??? Kidney stone No past surgical history on file. No family history on file. Social History Substance Use Topics ??? Smoking status: Former Smoker ??? Smokeless tobacco: Never Used ??? Alcohol use Yes Social History Social History Narrative ??? No narrative on file Review of Systems Review of Systems Unable to perform ROS: Mental status change Physical Exam ED Triage Vitals Temp Pulse Resp BP SpO2 06/28/170 06/28/17 2230 06/28/17222906/28/17222906/28/172229 (!) 39.6 ??C (103.3 ??F) 122 24 130/78 90 % Temp src Heart Rate Source Patient Position BP Location FiO2 (%) 06/28/17 2319 -- -- -- -- Tympanic Physical Exam Constitutional: He is oriented to person, place, and time. He appears well- developed and well-nourished. No distress. HENT: Head: Normocephalic and atraumatic. Mouth/Throat: Oropharynx is clear and moist. Eyes: Conjunctivae and EOM are normal. Pupils are equal, round, and reactive to light. Right eye exhibits no discharge. Left eye exhibits no discharge. Neck: Normal range of motion. Neck supple. Cardiovascular: Normal rate, regular rhythm, normal heart sounds and intact distal pulses. Exam reveals no gallop and no friction rub. No murmur heard. Pulmonary/Chest: Effort normal and breath sounds normal. No respiratory distress. He has no wheezes. He has no rales. Abdominal: Soft. He exhibits no distension and no mass. There is no tenderness. No hernia. Musculoskeletal: He exhibits no edema, tenderness or deformity. Difficulty with bilateral lower leg movements due to recent pelvic fracture Neurological: He is alert and oriented to person, place, and time. No cranial nerve deficit or sensory deficit. Coordination normal. No focal neurological deficits No unilateral weakness No facial droop. Skin: Skin is warm and dry. Capillary refill takes less than 2 seconds. No rash noted. No erythema.No pallor. Nursing note and vitals reviewed. ED Course & MDM BP 108/78 Pulse 107 Temp (!) 39.1 ??C (102.3 ??F) (Tympanic) Resp 17 SpO2 97% Labs Reviewed CBC WITH AUTO DIFFERENTIAL - Abnormal Result Value WBC 5.0 RBC 3.79 (*) Hgb 10.3 (*) Hct 32.1 (*) MCV 84.7 MCH 27.2 MCHC 32.1 (*) RDW CV 17.8 (*) RDW SD 55.7 (*) Platelets 177 MPV 9.8 NRBC Abs 0.00 Narrative: COMPREHENSIVE METABOLIC PANEL - Abnormal Sodium 137 Potassium 4.4 CO2 23 BUN 19 Glucose 85 Creatinine 1.22 Calcium 8.5 Chloride 101 Albumin 3.2 (*) AST 56 (*) ALT 41 Alk phos 128 Bilirubin 0.5 Protein, pl 8.0 Anion Gap 13 Narrative: PROTIME-INR - Abnormal PT 14.3 (*) INR 1.26 (*) Narrative: DIFFERENTIAL AUTO - Abnormal Neutrophils 71.6 Immature granulocytes 1.8 (*) Lymphocytes 17.3 Monos 6.5 Eosinophils 2.2 Basophils 0.6 Neutrophil absolute 3.55 Immature granulocyte, abs 0.09 Lymphocytes, abs 0.86 Monos, abs 0.32 Eosinophils, abs 0.11 Basophils, abs 0.03 Narrative: BLOOD CULTURE BLOOD CULTURE LACTATE, WHOLE BLOOD Lactic acid, bld 1.4 Narrative: URINALYSIS AND REFLEX TO MICROSCOPIC AND CULTURE Color, ur Yellow Clarity, ur Clear Specific gravity, ur 1.015 pH, ur 6.0 Protein, ur Negative Glucose, ur Negative Ketones, ur Negative Bilirubin, ur Negative Blood, ur Negative Urobilinogen, ur 1.0 Nitrites, ur Negative Leukocyte esterase, ur Negative Narrative: APTT APTT 30.8 Narrative: TROPONIN T Troponin T <0.01 Narrative: INFLUENZA A/B ANTIGENS, RAPID GEN LAB Flu A Negative Flu B Negative Narrative: EGFR GFR >60 Narrative: AMMONIA GLUCOSE POC Glucose, POC, bld 89 Narrative: XR Chest 1 Vw ED Interpretation No acute disease is noticed. CT Head WO Contrast (Results Pending) MDM Number of Diagnoses or Management Options Drug-induced fever: Substance abuse: Transient alteration of awareness: Diagnosis management comments: This patient is a 62-year-old gentleman with a history of hepatitis-C, he also takes methadone on daily basis, for some reason the patient has been prescribed Percocetsfor pelvic fracture and also has been prescribed Xanax by the methadone clinic. The ambulance was called today to his residence because of an episode of altered mental status, but reportedly the patient was sleeping all day long, he also has history of self medicating himself. The EMT who arrived at the scene thought that patient might be experiencing a stroke since the noticed a facial droop andleft upper extremity weakness. In the emergency room upon arrival the patient was oriented x3 and his neuro exam was nonfocal of. He was also found to be febrile, though his workup was negative including chest x-ray, UA, and influenza. At this point it is believed that this patient's altered mentalstatus could be related to his muscle relaxant Zanaflex that could give such reaction especially inpatients with hepatic impairment. We offered the patient admission to the hospital for further workup that will include an MRI and neuro evaluation, the patient declined that of [facility] to go home once his sister's. I explained to this cyst is that the Zanaflex can be causing his periods of altered mental status and explained to them that this medicine could not be stopped abruptly, I instructedthem to give him the medicine and to taper off after he meets with his doctor tomorrow on Thursday. Amount and/or Complexity of Data Reviewed Clinical lab tests: ordered Tests in the medicine section of CPT??: ordered Decide to obtain previous medical records or to obtain history from someone other than the patient:yes Independent visualization of images, tracings, or specimens: yes Transient alteration of awareness Drug-induced fever Substance abuse I, Ignacio Sue MD , have personally performed the services described in the documentation , reviewed the documentation, as recorded by the scribe in my presence, and it accurately and completely records my words and actions. This note was prepared by Dougie Hamm, acting as scribe for Dr. Sue. Signed by: Jessica Ward, 06/28/17, 0170 Ignacio Sue MD 06/29/17 0034 ICAL MICROBIOLOGIST * Dorina Bryan RN - 06/28/2017 11:24 PM CST 62 yr old male arrives to the ED per EMS. EMS reported called due to pt unresponsive. Pt alert and oriented x 1. Pt speech clear. No facial asymmetry noted. Pt denies any headache or blurred vision. Pt hand director payer equal. Pt's sister at bedside states pt with some confusion at home and was incontinent of urine. ICAL MICROBIOLOGIST * Varsha Turcios RN - 06/28/2017 10:18 PM CST Bed: ED05 Expected date: 06/28/17 Expected time: 10:11 PM Means of arrival: Comments: 25 Varsha Turcios RN 06/28/17 1964 ICAL MICROBIOLOGIST documented in this encounter Miscellaneous Notes * ED Procedure Note - Ignacio Sue MD - 06/28/2017 11:54 PM CLINICAL MICROBIOLOGIST Associated Order(s): ECG 12-LEAD Procedure ECG 12 lead Date/Time: 06/28/2017 11:54 PM Performed by: IGNACIO SUE Authorized by: IGNACIO SUE Quality: Tracing quality: Limited by artifact Rate: ECG rate assessment: tachycardic Rhythm: Rhythm: sinus rhythm Ectopy: Ectopy: none ST segments: ST segments: Normal T waves: T waves: normal Recommended Follow-up: Recommended follow up: no further workup needed Ignacio Sue MD 06/28/17 5611 ICAL MICROBIOLOGIST documented in this encounter Plan of Treatment Pending Results Name Type Priority Associated Diagnoses Date /Time ECG 12 lead ECG STAT 06/28/2017 11 :59 PM CLINICAL MICROBIOLOGIST documented as of this encounter Procedures Procedure Name Priority Date/Time Associated Diagnosis Comments AMMONIA STAT 06/29/2017 12:47 AM CLINICAL MICROBIOLOGIST DISCHARGE LABORATORY CUMULATIVE REPORT 06/29/2017 12:00 AM CLINICAL MICROBIOLOGIST ECG 12-LEAD STAT 06/28/2017 11:59 PM CLINICAL MICROBIOLOGIST Procedure Note - Ignacio Sue MD - 06/28/2017 11:54 PM CSTThis note is in progress. Procedure ECG 12 lead Date/Time: 06/28/2017 11:54 PM Performed by: IGNACIO SUE Authorized by: IGNACIO SUE Quality: Tracing quality: Limited by artifact Rate: ECG rate assessment: tachycardic Rhythm: Rhythm: sinus rhythm Ectopy: Ectopy: none ST segments: ST segments: Normal T waves: T waves: normal Recommended Follow-up: Recommended follow up: no further workup needed Ignacio Sue MD 06/28/17 3159 XR CHEST 1 VIEW ED 06/28/2017 11:05 PM CLINICAL MICROBIOLOGIST INFLUENZA A/B ANTIGENS, RAPID GEN LAB STAT 06/28/2017 10:52 PM CLINICAL MICROBIOLOGIST URINALYSIS AND REFLEX TO MICROSCOPIC AND CULTURE Routine 06/28/2017 10:52 PM CLINICAL MICROBIOLOGIST LACTATE, WHOLE BLOOD Routine 06/28/2017 10:36 PM CLINICAL MICROBIOLOGIST BLOOD CULTURE STAT 06/28/2017 10:[address] HEAD WO CONTRAST ED 06/28/2017 10:31 PM CLINICAL MICROBIOLOGIST EGFR STAT 06/28/2017 10:22 PM CLINICAL MICROBIOLOGIST DIFFERENTIAL AUTO STAT 06/28/2017 10:22 PM CLINICAL MICROBIOLOGIST CBC WITH AUTO DIFFERENTIAL STAT 06/28/2017 10:22 PM CLINICAL MICROBIOLOGIST BLOOD CULTURE STAT 06/28/2017 10:22 PM CLINICAL MICROBIOLOGIST APTT STAT 06/28/2017 10:22 PM CLINICAL MICROBIOLOGIST PROTIME-INR STAT 06/28/2017 10:22 PM CLINICAL MICROBIOLOGIST TROPONIN T STAT 06/28/2017 10:22 PM CLINICAL MICROBIOLOGIST COMPREHENSIVE METABOLIC PANEL STAT 06/28/2017 10:22 PM CLINICAL MICROBIOLOGIST GLUCOSE POC Routine 06/28/2017 10:16 PM CLINICAL MICROBIOLOGIST documented in this encounter Results * Ammonia (06/29/2017 12:47 AM CLINICAL MICROBIOLOGIST) Ammonia 30 10 - 60 mcmol/L [facility] ([place]) Blood specimen (specimen) 06/29/2017 12:47 AM CLINICAL MICROBIOLOGIST 06/29/2017 12:52 AM CLINICAL MICROBIOLOGIST Narrative [facility] ([place]) - 06/29/2017 1:25 AM CLINICAL MICROBIOLOGIST us Ignacio Sue MD LAB BLOOD ORDERABLES Final Result [facility] ([place]) 1 [facility] [place] [address] * DISCHARGE LABORATORY CUMULATIVE REPORT (06/29/2017 12:00 AM CLINICAL MICROBIOLOGIST) Narrative 06/29/2017 12:00 AM CLINICAL MICROBIOLOGIST Ordered by an unspecified provider. us Historical Provider LAB BLOOD ORDERABLES Cecilia l Result * XR Chest 1 Vw (06/28/2017 11:05 PM CLINICAL MICROBIOLOGIST) Anatomical Region Laterality Modality Body, Chest N/A Computed Radiogr aphy Impressions 06/29/2017 7:23 AM CLINICAL MICROBIOLOGIST 1. ??MILD PULMONARY VASCULAR CONGESTION SUPERIMPOSED UPON PULMONARY EMPHYSEMA. message has been communicated to the ED via the [employer] system. The final radiology report findings are discrepant from the preliminary report findings. Electronically signed by: Saravanan Tate M.D. Narrative 06/29/2017 7:23 AM CLINICAL MICROBIOLOGIST XR CHEST 1 VIEW HISTORY: Weakness. ??Altered mental status. COMPARISON: 03/25/2016. FINDINGS: Heart size remains normal. ??There is a hiatal hernia better demonstrated on prior study. ??Mild pulmonary vascular congestion is present superimposed upon pulmonary emphysema. ??Old granulomatous disease is noted. Procedure Note Saravanan Tate MD - 06/29/2017 XR CHEST 1 VIEW HISTORY: Weakness. Altered mental status. COMPARISON: 03/25/2016. FINDINGS: Heart size remains normal. There is a hiatal hernia better demonstrated on prior study. Mild pulmonary vascular congestion is present superimposed upon pulmonary emphysema. Old granulomatous disease is noted. IMPRESSION: 1. MILD PULMONARY VASCULAR CONGESTION SUPERIMPOSED UPON PULMONARY EMPHYSEMA. message has been communicated to the ED via the [employer] tracking system. The final radiology report findings are discrepant from the preliminary report findings. Electronically signed by: Saravanan Tate M.D. Ignacio Sue MD IMG XR PROCEDURES Final Re sult * Influenza A/B antigens, rapid (06/28/2017 10:52 PM CLINICAL MICROBIOLOGIST) Flu A Negative Negative [facility] ([place]) Comment: Interpretive Data The results of this procedure whether positive or negative are presumptive. Current interpretive data was last revised on 2014. Flu B Negative Negative [facility] ([place]) Nasopharyngeal 06/28/2017 10 :52 PM CLINICAL MICROBIOLOGIST 06/28/2017 10:57 PM CLINICAL MICROBIOLOGIST Narrative [facility] ([place]) - 06/28/2017 11:12 PM CLINICAL MICROBIOLOGIST Ignacio Sue MD LAB BODY FLUIDS AND STOOLS ORDERABLES Final Result [facility] ([place]) 1 [facility] Department [place] [address] * Urinalysis reflex to microscopic and culture (06/28/2017 10:52 PM CLINICAL MICROBIOLOGIST) Color, ur Yellow Yellow [facility] ([place]) Clarity, ur Clear Clear [facility] ([place]) Specific gravity, ur 1.015 1.003 - 1.030 [facility] ([place]) Comment:Normal Ranges: 1.003 -1.030 pH, ur 6.0 4.5 - 8.0 [facility] ([place]) Comment:Normal ranges: 4.5-8 .0 Protein, ur ql Negative Negative mg/dL [facility] ([place]) Glucose, ur ql Negative Negative mg/dL [facility] ([place]) Ketones, ur Negative Negative [facility] ([place]) Bilirubin, ur Negative Negative [facility] ([place]) Blood, ur Negative Negative [facility] ([place]) Urobilinogen, ur 1.0 0.2 - 1.0 EhrUnit/dL [facility] ([place]) Comment:Normal Ranges: 0.2-1 .0 EU/dL Nitrites, ur Negative Negative [facility] ([place]) Leukocyte esterase, ur Negative Negative [facility] ([place]) Urine 06/28/2017 10:5 2 PM CLINICAL MICROBIOLOGIST 06/28/2017 10:58 PM CLINICAL MICROBIOLOGIST Narrative [facility] ([place]) - 06/28/2017 11:03 PM CLINICAL MICROBIOLOGIST Ignacio Sue MD LAB MICROBIOLOGY - GENERAL ORDERABLES Final Result [facility] ([place]) 1 [facility] Department [place] [address] * Blood culture Blood (06/28/2017 10:36 PM CLINICAL MICROBIOLOGIST) Report Final Report: No growth [facility] ([place]) Comment:Testing performed by : [facility], [place]., [address] Blood specimen (specimen) 06/28/2017 10:36 PM CLINICAL MICROBIOLOGIST 06/29/2017 2:34 AM CLINICAL MICROBIOLOGIST Narrative [facility] ([place]) - 07/03/2017 7:00 AM CLINICAL MICROBIOLOGIST 1. Blood cultures are incubated for 5 days, and cultures are monitored continuously. ??The first negative report is issued within 24 hours of receipt in the laboratory. ??Positive cultures are called in accordance with the critical call policy. 2. The most important factor for detection microbes in the setting of blood stream infection is the volume of blood submitted for culture. ??For pediatric patients, the recommended volume of blood to collect is 1 mL of blood per year of patient age, up to 15 mL, per blood culture set. For adult patients, 20 mL of blood, divided equally between an aerobic and anaerobic blood culture bottle, is recommended for each blood culture set. ??Failure to collect an optimal blood volume can result in false negative blood cultures. 3. Bloodstream infection is more likely to be catheter related if the time to culture positivity of a blood culture drawn through the catheter is at least 2.5 hours faster than the time to positivity of a percutaneous culture of the same volume drawn at the same time, using the same media type. 4. Organism identification and/or antimicrobial susceptibly testing, if reported, [place] [address] 5. For blood cultures with gram-positive cocci, a rapid molecular test for organism identification may be performed using the [employer] Nanosphere Gram Positive Blood Culture Assay. The Nanosphere assay detects microbial DNA in positive blood culture broth via hybridization of target DNA to capture oligonucleotides on a microarray. This assay has been cleared by the [place] Food and Drug Administration and its performance characteristics have been verified by the [facility]. Interpretive data was last revised on October 06, 2016. Ignacio Sue MD LAB MICROBIOLOGY - GENERAL ORDERABLES Final Result [facility] ([place]) 1 [facility] [employer] [place] [address] * Lactate, whole blood (06/28/2017 10:36 PM CLINICAL MICROBIOLOGIST) Lactate, bld 1.4 0.5 - 2.2 mmol/L [facility] ([place]) Blood specimen (specimen) 06/28/2017 10:36 PM CLINICAL MICROBIOLOGIST 06/28/2017 10:38 PM CLINICAL MICROBIOLOGIST Narrative [facility] ([place]) - 06/28/2017 10:59 PM CLINICAL MICROBIOLOGIST Ignacio Sue MD LAB BLOOD ORDERABLES Final Result [facility] ([place]) 1 [facility] [place] [employer] [place] [address] * CT Head WO Contrast (06/28/2017 10:31 PM CLINICAL MICROBIOLOGIST) Anatomical Region Laterality Modality Head and Neck N/A Computed Tomogra phy Impressions 06/29/2017 7:07 AM CLINICAL MICROBIOLOGIST 1. ??NO ACUTE INTRACRANIAL HEMORRHAGE. 2. ??MILD CORTICAL ATROPHY. 3. FOCAL AREAS OF DECREASED ATTENUATION IN LEFT FRONTAL LOBE WHITE MATTER LIKELY SECONDARY TO SMALL VESSEL MICROVASCULAR ISCHEMIC DISEASE. Electronically signed by: Saravanan Tate M.D. Narrative 06/29/2017 7:07 AM CLINICAL MICROBIOLOGIST PROCEDURE: CT HEAD WO CONTRAST HISTORY: Fever. ??Left-sided weakness. ??Confusion. ??Stroke protocol patient. COMPARISON: None. TECHNIQUE: Serial axial images of the brain were obtained without contrast. ?? FINDINGS: 2 sets of images were obtained because of motion. ??There is motion artifact on both sets of images. There is no acute intracranial hemorrhage, midline shift or mass effect. ??There is mild diffuse cortical atrophy. ??Vertebral and carotid calcification is identified. ??Small area of diminished attenuation in the left periventricular frontal white matter most likely a manifestation of long vessel white matter ischemic disease. There is no acute skull fracture. Mild mucosal thickening in both ethmoid sinuses. The mastoids are clear bilaterally. Procedure Note Saravanan Tate MD - 06/29/2017 PROCEDURE: CT HEAD WO CONTRAST HISTORY: Fever. Left-sided weakness. Confusion. Stroke protocol patient. COMPARISON: None. TECHNIQUE: Serial axial images of the brain were obtained without contrast. FINDINGS: 2 sets of images were obtained because of motion. There is motion artifact on both sets of images. There is no acute intracranial hemorrhage, midline shift or mass effect. There is mild diffuse cortical atrophy. Vertebral and carotid calcification is identified. Small area of diminished attenuation in the left periventricular frontal white matter most likely a manifestation of long vessel white matter ischemic disease. There is no acute skull fracture. Mild mucosal thickening in both ethmoid sinuses. The mastoids are clear bilaterally. IMPRESSION: 1. NO ACUTE INTRACRANIAL HEMORRHAGE. 2. MILD CORTICAL ATROPHY. 3. FOCAL AREAS OF DECREASED ATTENUATION IN LEFT FRONTAL LOBE WHITE MATTER LIKELY SECONDARY TO SMALL VESSEL MICROVASCULAR ISCHEMIC DISEASE. Electronically signed by: Saravanan Tate M.D. us Ignacio Sue MD IM CT PROCEDURES Final Re sult * eGFR (06/28/2017 10:22 PM CLINICAL MICROBIOLOGIST) [facility] eGFR >60 mL/min/1.7 3 m2 [facility] ([place]) Comment: Interpretive Data Reference Interval Normal ?>/= 90 mL/min/1.73m2 Mildly decreased* ? 60 - 89 mL/min/1.73m2 Mildly to moderately decreased ?45 - 59 mL/min/1.73m2 Moderately to severely decreased ??30 - 44 mL/min/1.73m2 Severely decreased ?15 - 29 mL/min/1.73m2 Kidney Failure ?< 15 ??mL/min/1.73m2 *Relative to young adult level If -Armenian multiply value by 1.16. Estimated glomerular filtration [...] was last reviewed 2015. Blood specimen (specimen) 06/28/2017 10:22 PM CLINICAL MICROBIOLOGIST 06/28/2017 10:28 PM CLINICAL MICROBIOLOGIST Narrative [facility] ([place]) - 06/28/2017 10:50 PM CLINICAL MICROBIOLOGIST us Ignacio Sue MD LAB BLOOD ORDERABLES Final Result [facility] ([place]) 1 [facility] Department [place] [address] * (ABNORMAL) Differential, auto (06/28/2017 10:22 PM CLINICAL MICROBIOLOGIST) Neutrophil pct 71.6 44.0 - 80.0 % [facility] ([place]) Imm gran pct 1.8(H) 0.0 - 1.0 % [facility] ([place]) Lymphocyte pct 17.3 13.0 - 44.0 % [facility] ([place]) Monocyte pct 6.5 2.0 - 11.0 % [facility] ([place]) Eosinophil pct 2.2 0.0 - 6.0 % [facility] ([place]) Basophil pct 0.6 0.0 - 3.0 % [facility] ([place]) Neutrophil abs 3.55 1.60 - 7.00 K/cumm [facility] ([place]) Imm gran abs 0.09 0.00 - 0.20 K/cumm [facility] ([place]) Lymphocyte abs 0.86 0.50 - 4.30 K/cumm [facility] ([place]) Monocyte abs 0.32 0.10 - 1.00 K/cumm [facility] ([place]) Eosinophil abs 0.11 0.00 - 0.60 K/cumm [facility] ([place]) Basophil abs 0.03 0.00 - 0.30 K/cumm [facility] ([place]) Blood specimen (specimen) 06/28/2017 10:22 PM CLINICAL MICROBIOLOGIST 06/28/2017 10:28 PM CLINICAL MICROBIOLOGIST Narrative [facility] ([place]) - 06/28/2017 10:31 PM CLINICAL MICROBIOLOGIST us Ignacio Sue MD LAB BLOOD ORDERABLES Final Result [facility] ([place]) 1 [facility] [place] [address] * Troponin T (06/28/2017 10:22 PM CLINICAL MICROBIOLOGIST) Troponin T <0.01 0.00 - 0.06 ng/mL [facility] ([place]) Comment: Interpretive Data Troponin table: ? Negative ? 0.00-0.06 ng/ml ? Indeterminate ?0.07-0.10 ng/ml ? Consistent with Myocardial Injury ?Greater than 0.10 ng/ml ?? Current interpretive data was last revised on 2014 Blood specimen (specimen) 06/28/2017 10:22 PM CLINICAL MICROBIOLOGIST 06/28/2017 10:28 PM CLINICAL MICROBIOLOGIST Narrative [facility]PER FORMAN) - 06/28/2017 10:50 PM CLINICAL MICROBIOLOGIST Ignacio Sue MD LAB BLOOD ORDERABLES Final Result Performing Organization Address City/[facility]/ZIP Co de Phone Number HARPER FORMAN) 1 [facility] [place] [address] * (ABNORMAL) Protime-INR (06/28/2017 10:22 PM CLINICAL MICROBIOLOGIST) PT 14.3(H) 9.5 - 13.0 sec [facility]AREPR YOLANDA ([place]) INR 1.26(H) 0.90 - 1.20 [facility] ([place]) Comment: Interpretive Data Recommended ranges for Protime INR: 2.0 - 3.0 Most indications for Warfarin therapy (e.g. Treatment of DVT, PE, bioprosthetic valve replacement, prophylaxis venous thrombosis, atrial fibrillation). 2.5 - 3.5 Mechanical mitral valve or dual mechanical mitral and Aortic valve replacement. Current Interpretive Data was last revised on 2015. Blood specimen (specimen) 06/28/2017 10:22 PM CLINICAL MICROBIOLOGIST 06/28/2017 10:28 PM CLINICAL MICROBIOLOGIST Narrative [facility] ([place]) - 06/28/2017 10:58 PM CLINICAL MICROBIOLOGIST Ignacio Sue MD LAB BLOOD ORDERABLES Final Result [facility] ([place]) 1 [facility] [employer] [place] [address] * aPTT (06/28/2017 10:22 PM CLINICAL MICROBIOLOGIST) aPTT 30.8 25.0 - 37.0 sec [facility] ([place]) Blood specimen (specimen) 06/28/2017 10:22 PM CLINICAL MICROBIOLOGIST 06/28/2017 10:28 PM CLINICAL MICROBIOLOGIST Narrative [facility] ([place]) - 06/28/2017 10:58 PM CLINICAL MICROBIOLOGIST us Ignacio Sue MD LAB BLOOD ORDERABLES Final Result HAR[facility] GUERRERO ([place]) 1 [facility] Department [place] [address] * (ABNORMAL) Comprehensive metabolic panel (06/28/2017 10:22 PM CLINICAL MICROBIOLOGIST) Sodium 137 135 - 145 mmol/L [facility] ([place]) Potassium, pl 4.4 3.3 - 4.9 mmol/L [facility] ([place]) CO2 23 22 - 32 mmol/L [facility] ([place]) BUN 19 8 - 25 mg/dL [facility] ([place]) Glucose 85 70 - 199 mg/dL [facility] ([place]) [...] Current interpretive data was last revised 2017. Creatinine 1.22 0.80 - 1.30 mg/dL [facility] ([place]) Calcium 8.5 8.5 - 10.3 mg/dL [facility] ([place]) Chloride 101 97 - 110 mmol/L [facility] ([place]) Albumin 3.2(L) 3.5 - 5.0 g/dL [facility] ([place]) AST 56(H) 10 - 50 Units/L [facility] ([place]) ALT 41 7 - 55 Units/L [facility] ([place]) Alk phos 128 40 - 130 Units/L [facility] ([place]) Bilirubin, total 0.5 0.1 - 1.2 mg/dL [facility] ([place]) Protein, pl 8.0 6.5 - 8.5 g/dL [facility] ([place]) Anion gap 13 2 - 15 mmol/L [facility] ([place]) Blood specimen (specimen) 06/28/2017 10:22 PM CLINICAL MICROBIOLOGIST 06/28/2017 10:28 PM CLINICAL MICROBIOLOGIST Narrative [facility] ([place]) - 06/28/2017 10:50 PM CLINICAL MICROBIOLOGIST Ignacio Sue MD LAB BLOOD ORDERABLES Final Result [facility] ([place]) 1 [facility] Department [place] [address] * (ABNORMAL) CBC with auto differential (06/28/2017 10:22 PM CLINICAL MICROBIOLOGIST) WBC 5.0 3.8 - 9.9 K/cumm [facility] ([place]) RBC 3.79(L) 4.30 - 5.80 M/cumm [facility] ([place]) Hgb 10.3(L) 13.0 - 17.5 g/dL [facility] ([place]) Hct 32.1(L) 38.9 - 50.3 % [facility] ([place]) MCV 84.7 80.0 - 97.6 fL [facility] ([place]) MCH 27.2 27.1 - 33.3 pg [facility] ([place]) MCHC 32.1(L) 32.3 - 35.7 g/dL [facility] ([place]) RDW CV 17.8(H) 11.1 - 14.9 % [facility] ([place]) RDW SD 55.7(H) 35.7 - 48.1 fL [facility] ([place]) Plt 177 150 - 400 K/cumm [facility] ([place]) MPV 9.8 9.1 - 12.3 fL [facility] ([place]) NRBC abs 0.00 0.00 - 0.01 K/cumm [facility] ([place]) Blood specimen (specimen) 06/28/2017 10:22 PM CLINICAL MICROBIOLOGIST 06/28/2017 10:28 PM CLINICAL MICROBIOLOGIST Narrative [facility] ([place]) - 06/28/2017 10:31 PM CLINICAL MICROBIOLOGIST us Ignacio Sue MD LAB BLOOD ORDERABLES Final Result HARPER FORMAN) 1 [facility] [place] [address] * Blood culture Blood (06/28/2017 10:22 PM CLINICAL MICROBIOLOGIST) Report Final Report: No growth [facility]AP[facility]ER FORMAN) Comment:Testing performed by : [facility], [place]., [address] Blood specimen (specimen) 06/28/2017 10:22 PM CLINICAL MICROBIOLOGIST 06/29/2017 2:34 AM CLINICAL MICROBIOLOGIST Narrative HARPER FORMAN) - 07/03/2017 7:00 AM CLINICAL MICROBIOLOGIST 1. Blood cultures are incubated for 5 days, and cultures are monitored continuously. ??The first negative report is issued within 24 hours of receipt in the laboratory. ??Positive cultures are called in accordance with the critical call policy. 2. The most important factor for detection microbes in the setting of blood stream infection is the volume of blood submitted for culture. ??For pediatric patients, the recommended volume of blood to collect is 1 mL of blood per year of patient age, up to 15 mL, per blood culture set. For adult patients, 20 mL of blood, divided equally between an aerobic and anaerobic blood culture bottle, is recommended for each blood culture set. ??Failure to collect an optimal blood volume can result in false negative blood cultures. 3. Bloodstream infection is more likely to be catheter related if the time to culture positivity of a blood culture drawn through the catheter is at least 2.5 hours faster than the time to positivity of a percutaneous culture of the same volume drawn at the same time, using the same media type. 4. Organism identification and/or antimicrobial susceptibly testing, if reported, [place] [address] 5. For blood cultures with gram-positive cocci, a rapid molecular test for organism identification may be performed using the [employer] Nanosphere Gram Positive Blood Culture Assay. The Nanosphere assay detects microbial DNA in positive blood culture broth via hybridization of target DNA to capture oligonucleotides on a microarray. This assay has been cleared by the [place] Food and Drug Administration and its performance characteristics have been verified by the [facility]. Interpretive data was last revised on October 06, 2016. us Igancio Sue MD LAB MICROBIOLOGY - GENERAL ORDERABLES Final Result [facility] GU[facility] [place]) 1 [facility] [place] [address] * Glucose POC (06/28/2017 10:16 PM CLINICAL MICROBIOLOGIST) [facility] Signature Glucose, POC 89 71 - 98 mg/dL [facility] ([place]) Blood specimen (specimen) 06/28/2017 10:16 PM CLINICAL MICROBIOLOGIST 06/28/2017 10:16 PM CLINICAL MICROBIOLOGIST Narrative CON[facility] GUERR[facility] ([place]) - 06/28/2017 10:21 PM CLINICAL MICROBIOLOGIST us Notinfile Unknown POINT OF CARE TEST ORDERABLES Final Result Performing Organization Address City/[facility] Co de Phone Number HARPER GUERRERO ([place]) 1 [facility] [place] [place] [address] documented in this encounter Visit Diagnoses Diagnosis Transient alteration of awareness- Primary Drug-induced fever Fever, unspecified Substance abuse (CMS/HCC) (HCC) Other, mixed, or unspecified nondependent drug abuse, unspecified documented in this encounter Administered Medications Inactive Administered Medications - up to 3 most recent administrations Medication Order MAR Action Action Date Dose Rate Site ibuprofen (ADVIL,MOTRIN) tablet 600 mg 600 mg, oral, Once, On 06/28/17 at 2245, For 1 dose Given 06/28/2017 10:48 PM CLINICAL MICROBIOLOGIST 600 mg sodium chloride 0.9% bolus 1,000 mL 1,000 mL, intravenous, Once, On 06/28/17 at 2230, For 1 dose New Bag 06/28/2017 10:47 PM CLINICAL MICROBIOLOGIST 1,000 mL documented in this encounter Active and Recently Administered Medications Times are shown in CLINICAL MICROBIOLOGIST. Scheduled Medication Order 06/27/2017 06/28/2017 06/29/2017 ibuprofen (ADVIL,MOTRIN) tablet 600 mg (COMPLETED) 600 mg, oral, Once, On 06/28/17 at 2245, For 1 dose 2248 (Given - Provider: Varsha Turcios, KURTIS) sodium chloride 0.9% bolus 1,000 mL (COMPLETED) 1,000 mL, intravenous, Once, On 06/28/17 at 2230, For 1 dose 2247 (New Bag - Provider: Varsha Turcios, KURTIS) 0059 (Stopped - Provider: Dorina Bryan RN) documented in this encounter Orders Nursing Count Last Ordered Date First Orde red Date INSERT DEWEY CATHETER 1 06/28/2017 IV Count Last Ordered Date First Orde red Date SALINE LOCK IV 1 06/28/2017 documented in this encounter Care Teams Tier And Detonator Relationship Specialty Start Date End Date Geovanni Saunders NP [address] [place] [address] [address], [place] [address] PCP - General 01/02/17 04/28/18 documented as of this encounter
--- OUTSIDE RECORDS SUMMARY | 2024-05-31 23:31 | XMS_ITS | Encounter Summary ---
Author Organization [facility] Healthcare Address [address] [place] [address] Care Team Providers Care Life Sciences Manager Name Role Phone Miscellaneous, Not In File Primary Care Provider Unavailable Reason for Visit * Reason Comments Shortness of Breath Encounter Details Date Type Department Care Team (Latest Contact Info) Description 01/09/2020 1:57 PM CDT - 01/17/2020 2:31 PM CDT Hospital Encounter [facility] [address] [place] [address] Humble Chester MD [address] [facility] [address] [place] [id number] Beth Kaba MD 1 [facility] [place] [address] Patricio Vieira Jr., MD 1 [facility] [address] Abisai Alejandre MD [address] [facility] [place] [address] Steven Reinoso MD [address] [place] [address] Pneumonia (Primary Dx) Discharge Disposition: Discharge to home or self [...] on file 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 Gender Identity Not on file Sexual Orientation Not on file documented as of this encounter Last Filed Vital Signs Vital Sign Reading Time Taken Comments Blood Pressure 123/77 01/17/2020 7:40 AM CDT Pulse 70 01/17/2020 7:40 AM CDT Temperature 36.4 ??C (97.6 ??F) 01/17/2020 7:40 AM CD T Respiratory Rate 16 01/17/2020 7:40 AM CDT Oxygen Saturation 92% 01/17/2020 7:52 AM CDT Inhaled Oxygen Concentration - - Weight 66.5 kg (146 lb 9.7 oz) 01/09/2020 5:00 P M CDT Height 177.8 cm (5' 10 ) 01/11/2020 12:34 PM CDT Body Mass Index 21.04 01/09/2020 5:00 PM CDT documented in this encounter Discharge Diagnoses Diagnosis Sepsis, unspecified organism (HCC) - SEPSIS, UNSPECIFIED ORGANISM Acute respiratory failure with hypoxia (CMS/HCC) (HCC) - ACUTE RESPIRATORY FAILURE WITH HYPOXIA Legionnaires' disease (CMS/HCC) (HCC) - LEGIONNAIRES' DISEASE Legionnaires' disease Hypo-osmolality and hyponatremia - HYPO-OSMOLALITY AND HYPONATREMIA Opioid dependence, uncomplicated (HCC) - OPIOID DEPENDENCE, UNCOMPLICATED Hypokalemia - HYPOKALEMIA Hypopotassemia Contact with and (suspected) exposure to other viral communicable diseases - CONTACT WITH AND (SUSPECTED) EXPOSURE TO OTHER VIRAL COMMUNICABLE DISEASES Centrilobular emphysema (HCC) - CENTRILOBULAR EMPHYSEMA Major depressive disorder, single episode, unspecified - MAJOR DEPRESSIVE DISORDER, SINGLE EPISODE, UNSPECIFIED Diarrhea, unspecified - DIARRHEA, UNSPECIFIED Nicotine dependence, other tobacco product, uncomplicated - NICOTINE DEPENDENCE, OTHER TOBACCO PRODUCT, UNCOMPLICATED Altered mental status, unspecified - ALTERED MENTAL STATUS, UNSPECIFIED Chronic viral hepatitis C (CMS/HCC) (HCC) - CHRONIC VIRAL HEPATITIS C Chronic hepatitis C without mention of hepatic coma Other cirrhosis of liver (HCC) - OTHER CIRRHOSIS OF LIVER Hypothyroidism, unspecified - HYPOTHYROIDISM, UNSPECIFIED Allergy status to other drugs, medicaments and biological substances status - ALLERGY STATUS TO OTHER DRUGS, MEDICAMENTS AND BIOLOGICAL SUBSTANCES STATUS Hormone replacement therapy - HORMONE REPLACEMENT THERAPY Other terminal supervisor (current) drug therapy - OTHER WET FINISHER WOOL (CURRENT) DRUG THERAPY documented in this encounter Discharge Summaries * Patricio Vieira Jr., MD - 01/17/2020 11:50 AM CDT [place], [place] Hospitalist Discharge Summary Patient Name: Saravanan Lanza Patient : 1955 Room/Bed: [id number] Admission Date/Time: 01/09/2020 1:57 PM Discharge date: 01/17/2020 Admitting Physician: Beth Kaba MD Discharge Physician: Patricio Vieira Jr., MD Consults: Discharge Diagnoses: Principal Problem: Sepsis (CMS/HCC) Active Problems: Pneumonia COPD without exacerbation (CMS/HCC) Hyponatremia Diarrhea Altered mental status Cirrhosis of liver without ascites (CMS/HCC) Hospital Course: For full details of presentation including detailed history, past medical, surgical, social, family history and detailed ROS, as well as detailed exam and labs at time of presentation, please see the History and Physical. Legionaire's disease / acute respiratory failure with hypoxia Urine legionella antigen positive. Completed 8 days of azithromycin and ceftriaxone while inpatient. He was discharged home once he was weaned off of supplemental O2 (maintained SpO2 >91% with ambulation) and his energy levels improved. ?? Hypothyroidism TSH was low so his home levothyroxine dose decreased, will need repeat TSH and free T4 in 4-6 weeks. ?? Issues to be addressed with Primary Care or Other Outpatient Physician (Unresulted Labs, Repeat Testing, Medication Adjustments, etc) Instructed to make a follow-up appointment with his PCP preferably within 1 week for follow-up on pneumonia, will also need repeat TSH checked by PCP in 4-6 weeks. Discharge Exam: Vitals: 01/17/20 0135 01/17/20 0400 01/17/20 0740 01/17/20 0752 BP: 123/77 BP Location: Right arm Patient Position: Lying Pulse: 65 70 Resp: 16 Temp: 36.4 ??C (97.6 ??F) TempSrc: Temporal SpO2: 94% 96% 92% 92% Weight: Height: Gen: awake, no acute distress, pleasant and cooperative, resting comfortably in bed Neuro: no focal deficits, CN II-XII grossly intact Eyes: extraocular movement intact, sclerae anicteric HENT: supple, trachea midline, no thrush, mucosa moist, no JVD CV: regular rate and rhythm; no murmurs, rubs, or gallops; no peripheral edema Pulm: clear to auscultation bilaterally; no wheezes, rales, or rhonchi; breathing nonlabored GI: soft, non-tender, non-distended, normal bowel sounds MSK: no cyanosis, clubbing, joint swelling, joint erythema Skin: no visible erythema, acute bruising, or open wounds Psych: normal mood and affect Labs: (last 48 hours): Recent Results (from the past 48 hour(s)) CBC with auto differential Collection Time: 01/16/20 5:13 AM Result Value Ref Range WBC 8.2 3.8 - 9.9 K/cumm Hgb 11.9 (L) 13.0 - 17.5 g/dL Hct 36.0 (L) 38.9 - 50.3 % Plt 278 150 - 400 K/cumm MPV 10.1 9.1 - 12.3 fL RBC 4.03 (L) 4.30 - 5.80 M/cumm MCV 89.3 81.3 - 96.4 fL MCH 29.5 27.1 - 33.3 pg MCHC 33.1 32.3 - 35.7 g/dL RDW CV 14.5 11.1 - 14.9 % RDW SD 47.1 35.7 - 48.1 fL NRBC abs 0.00 0.00 - 0.01 K/cumm Basic metabolic panel Collection Time: 01/16/20 5:13 AM Result Value Ref Range Sodium 138 135 - 145 mmol/L Potassium, pl 3.4 3.3 - 4.9 mmol/L Chloride 101 97 - 110 mmol/L CO2 26 22 - 32 mmol/L Anion gap 11 2 - 15 mmol/L BUN 12 8 - 25 mg/dL Creatinine 0.69 (L) 0.80 - 1.30 mg/dL Glucose 67 (L) 70 - 199 mg/dL Calcium 8.7 8.5 - 10.3 mg/dL eGFR Collection Time: 01/16/20 5:13 AM Result Value Ref Range GFR 100 mL/min/1.73 m2 Manual Differential Collection Time: 01/16/20 5:13 AM Result Value Ref Range Differential Manual Cells Counted 100 Neutrophil abs 6.2 1.7 - 6.5 K/cumm Imm gran abs 0.3 (H) 0.0 - 0.1 K/cumm Lymphocyte abs 1.3 0.8 - 3.3 K/cumm Monocyte abs 0.4 0.2 - 0.8 K/cumm Neutrophil pct 71.0 % Lymphocyte pct 13.0 % Monocyte pct 5.0 % Neutrophilic bands 4.0 0.0 - 5.0 % Neutrophilic metamyelocytes 4.0 (H) 0.0 - 0.0 % Variant lymphs 3.0 (H) 0.0 - 0.0 % POCT glucose Collection Time: 01/16/20 8:10 AM Result Value Ref Range Glucose, POC 86 71 - 98 mg/dL Radiology: Xr Chest 1 View Portable Result Date: 01/13/2020 Narrative: EXAMINATION: XR CHEST 1 VIEW ORDERING HEALTHCARE PROVIDER: STEVEN REINOSO HISTORY: Acute respiratory failure. Pneumonia. TECHNIQUE: Frontal chest radiograph. COMPARISON: Chest radiograph from 01/09/[address] from 01/10/2020. FINDINGS: LUNGS/PLEURA: There is patchy airspace opacity projecting over the right mid to lower lung, unchanged. There is a trace right pleural effusion. There is no evidence of airspace consolidation in the left lung. There is pulmonary emphysema and biapical pleural/scarring. HEART/MEDIASTINUM: The heart size is normal. The mediastinal and hilar contours are stable. There is a moderate hiatal hernia. HARDWARE/LINES/TUBES: None. BONES: There are no acute or aggressive appearing osseous abnormalities. Impression: 1. No significant change in right lower lobe pneumonia. Short interval imaging follow-up to resolution is recommended. 2. Trace right pleural effusion. 3. Pulmonary emphysema. 4. Moderatehiatal hernia. Electronically signed by: Silvestre Morales M.D. Xr Chest 1 Vw Portable Result Date: 01/09/2020 Narrative: EXAMINATION: XR CHEST 1 VIEW HISTORY: cough. Shortness of breath for days FINDINGS: Single view submitted with comparison 10/08/2017. There is been interval development of right mid and lower lung airspace consolidation. There is no pneumothorax. The heart size is within normal limits. Moderate hiatal hernia is noted. Impression: 1. Interval development of right middle and lower lung airspace consolidation, suspicious for pneumonia. Recommend radiographic follow-up to resolution. Electronically signed by: Felix Valiente M.D. Cta Chest W Contrast Result Date: 01/10/2020 Narrative: EXAMINATION: CTA CHEST W CONTRAST ORDERING HEALTHCARE PROVIDER: ABISAI ALEJANDRE HISTORY: Hypoxia shortness of breath, and elevated d-dimer since yesterday. History of emphysema. Concern for pulmonary embolism. COMPARISON: Chest radiograph from 01/09/2020 and chest radiograph from 10/08/2017.TECHNIQUE: CT chest of the chest (pulmonary embolism protocol) performed with intravenous contrast.Coronal and sagittal reformatted images were generated and reviewed. 3D volumetric MIP images were generated and reviewed. Automated exposure control was used as a dose optimization technique for this examination. CONTRAST: 125 mL of Optiray 350 contrast was administered via a left forearm IV. FINDINGS: VASCULATURE: Adequate contrast bolus, without evidence of pulmonary embolism. The main pulmonary artery is normal in course and caliber. There is mild atherosclerotic calcification and tortuosity/ectasia of the thoracic aorta. There are mild coronary artery calcifications. LUNGS: There is debris in the trachea. There is bilateral bronchial wall thickening. There is airspace consolidation throughout the right lower lobe. There is mild bilateral subsegmental atelectasis or scarring. There ismoderate centrilobular and paraseptal pulmonary emphysema. There is pleural/parenchyma scarring at the bilateral lung apices associated with biapical nodularity, measuring 3.6 x 3.1 cm on the right (axial image 14 of 92) and 2.4 cm on the left (axial image 11 of 92). There is a calcified right upper lobe pulmonary granuloma. There is a noncalcified 4 mm left lower lobe pulmonary nodule (axial image 67 of 92) and there is a 6 mm left lower lobe pulmonary nodule (axial image 37 of 92). PLEURA: There is a small right pleural effusion. There is no pneumothorax. MEDIASTINUM/TORREY: There are enlarged mediastinal lymph nodes. A credit and collections representative precarinal lymph node measures 2.0 x 1.3 cm (axial image35 of 92). A credit and collections representative subcarinal lymph node measures 3.0 x 1.5 cm (axial image 45 of 92). There is no hilar lymphadenopathy. There is a moderate hiatal hernia. HEART: The heart size is normal. There is no pericardial effusion. AXILLA: There is no axillary lymphadenopathy. CHEST WALL: There ismild bilateral gynecomastia. UPPER ABDOMEN: The liver has a nodular contour. The spleen is enlarged, measuring 13.2 cm in length. MUSCULOSKELETAL: There are no acute or aggressive appearing osseous abnormalities. There is mild multilevel degenerative change of the thoracic spine. There are multiplechronic thoracic spine compression fractures, unchanged. Impression: 1. No evidence of pulmonary embolism. 2. Right lower lobe pneumonia and small right pleural effusion. 3. Mediastinal lymphadenopathy, which is non- specific and may be reactive. A 2-3 month follow-up CT of the chest is recommended to assess for resolution of the right lower lobe airspaceopacity and the mediastinal lymphadenopathy. 4. Moderate centrilobular and paraseptal emphysema. 5.Bilateral bronchiolitis and debris in the trachea, indicating that the patient may be at risk for aspiration. 6. Biapical pulmonary nodularity, which may related to pleural/parenchymal scarring, and scattered non-calcified pulmonary nodules, measuring up to 6 mm. Attention on follow-up imaging is re commended to assess for stability. 7. Nodular hepatic contour, as can be seen in setting of cirrhosis. 8. Mild splenomegaly (13.2 cm). Electronically signed by: Silvestre Morales M.D. Us Liver Result Date: 12/22/2019 Narrative: EXAMINATION: US LIVER ORDERING HEALTHCARE PROVIDER: PHMA HERRERA HISTORY: Chronic Hep C.COMPARISON: Liver ultrasound 10/28/2017 TECHNIQUE: Grayscale, color Doppler and spectral Doppler sonographic images of the right upper quadrant abdominal contents were reviewed. FINDINGS: LIVER: Coarsened hepatic echotexture which can be seen with chronic liver disease, with mildly increased echogenicity. This compromises evaluation for subtle masses although no distinct mass is seen. The hepaticsurface shows mild nodularity. The main portal vein is patent with hepatopedal flow. GALLBLADDER: The gallbladder is normally distended without gallstones or pericholecystic fluid. The gallbladder wall measures 2.4 mm thickness. BILE DUCTS: The common bile duct measures 4.8 mm in diameter. PANCREAS: Obscured by intervening bowel gas. RIGHT KIDNEY: Survey images of the right kidney demonstrate no hydronephrosis. OTHER: No other acute findings. Impression: 1. Cirrhotic appearance of the liver. 2. No evidence of acute cholecystitis. Electronically signed by: Grover Davis M.D. Us Vein Duplex Lower Extremity Bilateral Complete Result Date: 01/10/2020 Narrative: EXAMINATION: US VEIN DUPLEX LOWER EXTREMITY BILATERAL COMPLETE ORDERING HEALTHCARE PROVIDER: ABISAI ALEJANDRE HISTORY: Elevated d-dimer. Concern for deep vein thrombosis. COMPARISON: None available. TECHNIQUE: Grayscale, color and spectral Doppler sonographic evaluation of the bilateral lowerextremity deep venous systems from the common femoral to the popliteal vein with compression and augmentation. FINDINGS: The bilateral common femoral, superficial femoral, and popliteal veins are readily compressible with no intraluminal thrombus on loera scale images. There is normal color and spectral Doppler signal, including augmentation. The bilateral greater saphenous veins appear patent. The visualized portions of the bilateral posterior tibial and peroneal veins are patent. Impression: No evidence of deep vein thrombosis in the bilateral lower extremities. Electronically signed by: Silvestre Morales M.D. Medications: Your medication list START taking these medications Instructions Last Dose Given Next Dose Due predniSONE 20 mg tablet Commonly known as: DELTASONE Start taking on: January 18, 2020 Take 2 tablets (40 mg) by mouth daily for 3 doses CHANGE how you take these medications Instructions Last Dose Given Next Dose Due levothyroxine 75 mcg tablet Commonly known as: SYNTHROID Start taking on: January 18, 2020 What changed: ?? medication strength ?? how much to take Take 1 tablet (75 mcg total) by mouth occupational therapy supervisor before breakfast CONTINUE taking these medications Instructions Last Dose Given Next Dose Due albuterol HFA 90 mcg/actuation inhaler Commonly known as: PROVENTIL HFA,VENTOLIN HFA,PROAIR HFA baclofen 10 mg tablet Commonly known as: LIORESAL Take 1 tablet (10 mg total) by mouth 3 (three) times a day for 15 days Breo Ellipta 200-25 mcg/dose diskus inhaler Generic drug: fluticasone furoate-vilanteroL clonazePAM 0.5 mg tablet Commonly known as: KlonoPIN methadone 10 mg tablet Commonly known as: DOLOPHINE mirtazapine 15 mg tablet Commonly known as: REMERON omeprazole 20 mg capsule Commonly known as: PriLOSEC potassium chloride ER 10 mEq CR tablet Commonly known as: KLOR-CON sertraline 50 mg tablet Commonly known as: ZOLOFT tamsulosin 0.4 mg extended release capsule Commonly known as: FLOMAX Where to Get Your Medications These medications were sent to [facility] [place], [place] - [address] [facility] [id number] [facility] [id number], [facility] [id number] ?? levothyroxine 75 mcg tablet ?? predniSONE 20 mg tablet Patient Instructions: Activity: activity as tolerated Diet: regular diet Disposition: home Follow-up Contact Information for Follow-ups Other Follow-up Next Steps: Follow up Instructions: Please follow-up with your primary care provider within 1 week. Questions: Instructions for follow-up (appointment date and time): Please follow-up with your primary care provider within 1 week. Total time spent on day of discharge 25 minutes Signed: Patricio Vieira Jr., MD Internal Medicine - Hospitalist [facility] - Adult Hospitalist Service 01/17/2020 11:51 AM Cc: Not In Miscellaneous documented in this encounter Discharge Instructions * Discharge Instr - Other Orders* Manjula Carlton, KURTIS - 01/17/2020 1:40 PM CDT If you have any questions or concerns following discharge, please call [facility] at [phone]. * Attachments The following attachments cannot be sent through Care Everywhere. * Prednisone (By mouth) (Kyrgyz) documented in this encounter Medications at Time [...] 1 tablet (75 mcg total) by mouth occupational therapy supervisor before breakfast 30 tablet 2 01/18/2020 [...] by mouth 2 (two) times a day predniSONE (DELTASONE) 20 mg tablet Take 2 tablets (40 mg) by mouth daily for 3 doses 6 tablet 01/18/2020 0 documented as of this encounter Ordered Prescriptions Prescription Sig Dispense Quantity Refills Last Filled Start Date End Date levothyroxine (SYNTHROID) 75 mcg tablet Take 1 tablet (75 mcg total) by mouth occupational therapy supervisor before breakfast 30 tablet 2 01/18/2020 predniSONE (DELTASONE) 20 mg tablet Take 2 tablets (40 mg) by mouth daily for 3 doses 6 tablet 01/18/2020 0 documented in this encounter Discharge Disposition Disposition Code Departure Means Destination Discharge to home or self care documented in this encounter Progress Notes * Mckenzie Jaramillo, RD - 01/17/2020 12:07 PM CDT Nutrition Assessment Reason for Assessment: Follow Up Encounter Date: 01/17/20 12:07 PM Nutrition Assessment and Plan: Patient is a 64 y.o. male. Admit Dx: PNEUMONIA. Admitted on 01/09/2020, current LOS is 8 days. Nutrition Screen What diet do you follow at home?: no Have You Recently Lost Weight Without Trying?: No Poor Oral Intake for Four or More Days Prior to Admission: Yes (Comment) Current diet order: Adult Diet Regular Adult Discharge Diet Pt intake is adequate. PO intakes: 75-100% of meals. Wt Readings from Last 10 Encounters: 01/09/20 66.5 kg (146 lb 9.7 oz) 06/04/19 68 kg (150 lb) 04/05/19 68 kg (150 lb) 04/29/18 68.9 kg (152 lb) 11/24/17 63.5 kg (140 lb) 09/08/17 73.3 kg (161 lb 9.6 oz) 08/12/17 76.1 kg (167 lb 12.8 oz) 07/21/17 76.7 kg (169 lb) 06/16/17 73.9 kg (163 lb) Nutrition Diagnosis 1: Increased energy expenditure Related to: Acute illness/injury Evidenced by: Physical finding ?? Interventions: Orr diet preferences within the limits of nutrition care order, Meals and snacks ?? Monitoring and Evaluation: Discharge plans, Labs, PO intake ?? Goals: Adequate nutrition to meet estimated needs by next assessment ? Estimated needs: ?? Total Kcal/kg Estimated Needs : 2128 based on Kcal/k. Type of Weight Used for Estimated Kcals: Current ?? MS Total Energy Needs: 2096.64 kcal using Stress Factor: 1.2 Activity Factor: 1.2 ?? Total Protein Estimated Needs (gm): 53.2 Protein Needs Based on g/k.8 Type of Weight Used for Estimated Protein : Current. ?? Total Fluid Estimated Needs: 1994 Fluid Needs Based on : 30 ml/kg. Objective Anthropometrics Weight: 66.5 kg (146 lb 9.7 oz) Admission Weight : 66.5 kg Weight Change: -1.53 kg (-3.39 lbs) IBW/kg (Calculated) : 75.3 kg Height: 177.8 cm (5' 10 ) Weight in (lb) to have BMI = 25: 173.9 BMI (Calculated): 21 3 Day I/O Summary 01/140 - 01/16 0659 In: 1210 [P.O.:1210] Out: - Temp: 36.4 ??C (97.6 ??F) Past Medical History: Diagnosis Date ??? Depression ??? Emphysema of lung (CMS/HCC) ??? Infectious viral hepatitis ??? Kidney stone ??? Melena Medications and Lab Review: Scheduled Meds: baclofen, 10 mg, oral, TID budesonide-formoteroL, 2 puff, inhalation, BID (RT) enoxaparin, 40 mg, subcutaneous, Daily-2100 guaiFENesin-dextromethorphan ER, 1 tablet, oral, BID levothyroxine, 75 mcg, oral, Daily - 0600 methadone, 165 mg, oral, Daily mirtazapine, 15 mg, oral, Nightly pantoprazole DR, 40 mg, oral, Daily potassium chloride ER, 10 mEq, oral, Daily predniSONE, 40 mg, oral, Daily sertraline, 100 mg, oral, Daily sodium chloride 0.9%, 0.5-20 mL, intra-catheter, Q8H tamsulosin, 0.4 mg, oral, BID Continuous Infusions: Sodium Date Value Ref Range Status 01/16/2020 138 135 - 145 mmol/L Final Potassium, pl Date Value Ref Range Status 01/16/2020 3.4 3.3 - 4.9 mmol/L Final BUN Date Value Ref Range Status 01/16/2020 12 8 - 25 mg/dL Final Creatinine Date Value Ref Range Status 01/16/2020 0.69 (L) 0.80 - 1.30 mg/dL Final Calcium Date Value Ref Range Status 01/16/2020 8.7 8.5 - 10.3 mg/dL Final No results found for: HGBA1C POC Glucose: na(01/16) Nursing Assessment: Last BM Date: 01/16/20 Nithin Scale Score: 19 Diet Instructions Adult Discharge Diet Diet Type: Return to previous diet Nutrition Follow-Up : 01/24/[address],LDN * Patricio Vieira Jr., MD - 01/16/2020 6:05 PM CDT [facility] Hospitalist Service Progress Note Patient Name: Saravanan Lanza Patient : 1955 Age/Sex: 64 y.o. male Room/Bed: [id number] Admission Date/Time: 01/09/2020 1:57 PM Date: 01/16/2020 Time: 6:05 PM Chief Complaint: shortness of breath Subjective: The patient's oxygen was unable to be weaned to 2 L yesterday because he reportedly became hypoxic,however his breathing has been comfortable so far today and his O2 was found to be running at 1.5 L. He reports that his breathing feels better than yesterday and he was able to walk around his room c omfortably. Allergies: Allergies Allergen Reactions ??? Narcan [Naloxone] Other (See comments) Patient indicating he cannot have narcan no matter what (methodone prescription) Current Medication List: Scheduled Meds:azithromycin, 500 mg, oral, Daily baclofen, 10 mg, oral, TID budesonide-formoteroL, 2 puff, inhalation, BID (RT) cefTRIAXone, 2,000 mg, intravenous, Q24H BEBE enoxaparin, 40 mg, subcutaneous, Daily-2100 guaiFENesin-dextromethorphan ER, 1 tablet, oral, BID levothyroxine, 75 mcg, oral, Daily - 0600 methadone, 165 mg, oral, Daily mirtazapine, 15 mg, oral, Nightly pantoprazole DR, 40 mg, oral, Daily potassium chloride ER, 10 mEq, oral, Daily sertraline, 100 mg, oral, Daily sodium chloride 0.9%, 0.5-20 mL, intra-catheter, Q8H tamsulosin, 0.4 mg, oral, BID Continuous Infusions: PRN Meds:??? acetaminophen ??? albuterol ??? bisacodyl EC ??? clonazePAM ??? ipratropium-albuteroL ??? magnesium hydroxide ??? mineral oil ??? ondansetron ODT OR ondansetron ??? sodium chloride 0.9% Objective: Vitals: Vitals: 01/16/20 0000 01/16/20 0400 01/16/20 0711 01/16/20 0753 BP: 106/70 BP Location: Right arm Patient Position: Sitting Pulse: 56 74 67 Resp: 18 Temp: 36.7 ??C (98 ??F) TempSrc: Temporal SpO2: 93% 90% 95% Weight: Height: Physical Exam: Gen: awake, no acute distress, pleasant and cooperative, resting comfortably in bed, nasal cannula in place Neuro: no focal deficits, CN II-XII grossly intact Eyes: extraocular movement intact, sclerae anicteric HENT: supple, trachea midline, no thrush, mucosa moist, no JVD CV: regular rate and rhythm; no murmurs, rubs, or gallops; no peripheral edema Pulm: faint crackles at right base; breathing nonlabored GI: soft, non-tender, non-distended, normal bowel sounds MSK: no cyanosis, clubbing, joint swelling, joint erythema Skin: no visible erythema, acute bruising, or open wounds Psych: normal mood and affect Labs: Lab Results Component Value Date GLUCOSE 86 01/16/2020 CALCIUM 8.7 01/16/2020 SODIUM 138 01/16/2020 POTASSIUM 3.4 01/16/2020 CO2 26 01/16/2020 CHLORIDE 101 01/16/2020 BUNSER 12 01/16/2020 CREATININE 0.69 (L) 01/16/2020 Lab Results Component Value Date WBC 8.2 01/16/2020 HGB 11.9 (L) 01/16/2020 HCT 36.0 (L) 01/16/2020 MCV 89.3 01/16/2020 LABPLAT 278 01/16/2020 Pertinent Labs: I have reviewed the pertinent labs. Radiology: Xr Chest 1 View Portable Result Date: 01/13/2020 Narrative: EXAMINATION: XR CHEST 1 VIEW ORDERING HEALTHCARE PROVIDER: STEVEN REINOSO HISTORY: Acute respiratory failure. Pneumonia. TECHNIQUE: Frontal chest radiograph. COMPARISON: Chest radiograph from 01/09/[address] from 01/10/2020. FINDINGS: LUNGS/PLEURA: There is patchy airspace opacity projecting over the right mid to lower lung, unchanged. There is a trace right pleural effusion. There is no evidence of airspace consolidation in the left lung. There is pulmonary emphysema and biapical pleural/scarring. HEART/MEDIASTINUM: The heart size is normal. The mediastinal and hilar contours are stable. There is a moderate hiatal hernia. HARDWARE/LINES/TUBES: None. BONES: There are no acute or aggressive appearing osseous abnormalities. Impression: 1. No significant change in right lower lobe pneumonia. Short interval imaging follow-up to resolution is recommended. 2. Trace right pleural effusion. 3. Pulmonary emphysema. 4. Moderatehiatal hernia. Electronically signed by: Silvestre Morales M.D. Xr Chest 1 Vw Portable Result Date: 01/09/2020 Narrative: EXAMINATION: XR CHEST 1 VIEW HISTORY: cough. Shortness of breath for days FINDINGS: Single view submitted with comparison 10/08/2017. There is been interval development of right mid and lower lung airspace consolidation. There is no pneumothorax. The heart size is within normal limits. Moderate hiatal hernia is noted. Impression: 1. Interval development of right middle and lower lung airspace consolidation, suspicious for pneumonia. Recommend radiographic follow-up to resolution. Electronically signed by: Felix Valiente M.D. Cta Chest W Contrast Result Date: 01/10/2020 Narrative: EXAMINATION: CTA CHEST W CONTRAST ORDERING HEALTHCARE PROVIDER: ABISAI ALEJANDRE HISTORY: Hypoxia shortness of breath, and elevated d-dimer since yesterday. History of emphysema. Concern for pulmonary embolism. COMPARISON: Chest radiograph from 01/09/2020 and chest radiograph from 10/08/2017.TECHNIQUE: CT chest of the chest (pulmonary embolism protocol) performed with intravenous contrast.Coronal and sagittal reformatted images were generated and reviewed. 3D volumetric MIP images were generated and reviewed. Automated exposure control was used as a dose optimization technique for this examination. CONTRAST: 125 mL of Optiray 350 contrast was administered via a left forearm IV. FINDINGS: VASCULATURE: Adequate contrast bolus, without evidence of pulmonary embolism. The main pulmonary artery is normal in course and caliber. There is mild atherosclerotic calcification and tortuosity/ectasia of the thoracic aorta. There are mild coronary artery calcifications. LUNGS: There is debris in the trachea. There is bilateral bronchial wall thickening. There is airspace consolidation throughout the right lower lobe. There is mild bilateral subsegmental atelectasis or scarring. There ismoderate centrilobular and paraseptal pulmonary emphysema. There is pleural/parenchyma scarring at the bilateral lung apices associated with biapical nodularity, measuring 3.6 x 3.1 cm on the right (axial image 14 of 92) and 2.4 cm on the left (axial image 11 of 92). There is a calcified right upper lobe pulmonary granuloma. There is a noncalcified 4 mm left lower lobe pulmonary nodule (axial image 67 of 92) and there is a 6 mm left lower lobe pulmonary nodule (axial image 37 of 92). PLEURA: There is a small right pleural effusion. There is no pneumothorax. MEDIASTINUM/TORREY: There are enlarged mediastinal lymph nodes. A credit and collections representative precarinal lymph node measures 2.0 x 1.3 cm (axial image35 of 92). A credit and collections representative subcarinal lymph node measures 3.0 x 1.5 cm (axial image 45 of 92). There is no hilar lymphadenopathy. There is a moderate hiatal hernia. HEART: The heart size is normal. There is no pericardial effusion. AXILLA: There is no axillary lymphadenopathy. CHEST WALL: There ismild bilateral gynecomastia. UPPER ABDOMEN: The liver has a nodular contour. The spleen is enlarged, measuring 13.2 cm in length. MUSCULOSKELETAL: There are no acute or aggressive appearing osseous abnormalities. There is mild multilevel degenerative change of the thoracic spine. There are multiplechronic thoracic spine compression fractures, unchanged. Impression: 1. No evidence of pulmonary embolism. 2. Right lower lobe pneumonia and small right pleural effusion. 3. Mediastinal lymphadenopathy, which is non- specific and may be reactive. A 2-3 month follow-up CT of the chest is recommended to assess for resolution of the right lower lobe airspaceopacity and the mediastinal lymphadenopathy. 4. Moderate centrilobular and paraseptal emphysema. 5.Bilateral bronchiolitis and debris in the trachea, indicating that the patient may be at risk for aspiration. 6. Biapical pulmonary nodularity, which may related to pleural/parenchymal scarring, and scattered non-calcified pulmonary nodules, measuring up to 6 mm. Attention on follow-up imaging is re commended to assess for stability. 7. Nodular hepatic contour, as can be seen in setting of cirrhosis. 8. Mild splenomegaly (13.2 cm). Electronically signed by: Silvestre Morales M.D. Us Liver Result Date: 12/22/2019 Narrative: EXAMINATION: US LIVER ORDERING HEALTHCARE PROVIDER: PHAM HERRERA HISTORY: Chronic Hep C.COMPARISON: Liver ultrasound 10/28/2017 TECHNIQUE: Grayscale, color Doppler and spectral Doppler sonographic images of the right upper quadrant abdominal contents were reviewed. FINDINGS: LIVER: Coarsened hepatic echotexture which can be seen with chronic liver disease, with mildly increased echogenicity. This compromises evaluation for subtle masses although no distinct mass is seen. The hepaticsurface shows mild nodularity. The main portal vein is patent with hepatopedal flow. GALLBLADDER: The gallbladder is normally distended without gallstones or pericholecystic fluid. The gallbladder wall measures 2.4 mm thickness. BILE DUCTS: The common bile duct measures 4.8 mm in diameter. PANCREAS: Obscured by intervening bowel gas. RIGHT KIDNEY: Survey images of the right kidney demonstrate no hydronephrosis. OTHER: No other acute findings. Impression: 1. Cirrhotic appearance of the liver. 2. No evidence of acute cholecystitis. Electronically signed by: Grover Davis M.D. Us Vein Duplex Lower Extremity Bilateral Complete Result Date: 01/10/2020 Narrative: EXAMINATION: US VEIN DUPLEX LOWER EXTREMITY BILATERAL COMPLETE ORDERING HEALTHCARE PROVIDER: ABISAI ALEJANDRE HISTORY: Elevated d-dimer. Concern for deep vein thrombosis. COMPARISON: None available. TECHNIQUE: Grayscale, color and spectral Doppler sonographic evaluation of the bilateral lowerextremity deep venous systems from the common femoral to the popliteal vein with compression and augmentation. FINDINGS: The bilateral common femoral, superficial femoral, and popliteal veins are readily compressible with no intraluminal thrombus on loera scale images. There is normal color and spectral Doppler signal, including augmentation. The bilateral greater saphenous veins appear patent. The visualized portions of the bilateral posterior tibial and peroneal veins are patent. Impression: No evidence of deep vein thrombosis in the bilateral lower extremities. Electronically signed by: Silvestre Morales M.D. 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 Continue azithromycin day 6. Wean supplemental O2 as tolerated. Hypothyroidism TSH was low, levothyroxine dose decreased, will need repeat TSH and free T4 in 4-6 weeks. DVT PPx Update 01/14: SOB continues to slowly improve. Wean supplemental O2 as tolerated (was increased to 3 L overnight, but is currently doing well on 2L again). Start incentive spirometry. Continue azithromycin day 7. Update 01/15: Completed 8 days of azithromycin and ceftriaxone, can stop now. Continue to wean supplemental O2 as tolerated encourage use of incentive spirometer. Will start short course of prednisone because of likely contribution of COPD to lingering dyspnea. Continue Duonebs. MDM: moderate complexity Patricio Vieira Jr., MD Internal Medicine - Hospitalist [facility] - Adult Hospitalist Service 01/16/2020 6:05 PM * Patricio Vieira Jr., MD - 01/15/2020 1:00 PM CDT [facility] Hospitalist Service Progress Note Patient Name: Saravanan Lanza Patient : 1955 Age/Sex: 64 y.o. male Room/Bed: [id number] Admission Date/Time: 01/09/2020 1:57 PM Date: 01/15/2020 Time: 1:00 PM Chief Complaint: shortness of breath Subjective: The patient's breathing continues to improve and he has no significant sputum production. He also notes that his voice is getting closer to normal. Allergies: Allergies Allergen Reactions ??? Narcan [Naloxone] Other (See comments) Patient indicating he cannot have narcan no matter what (methodone prescription) Current Medication List: Scheduled Meds:azithromycin, 500 mg, oral, Daily baclofen, 10 mg, oral, TID budesonide-formoteroL, 2 puff, inhalation, BID (RT) cefTRIAXone, 2,000 mg, intravenous, Q24H BEBE enoxaparin, 40 mg, subcutaneous, Daily-2100 levothyroxine, 75 mcg, oral, Daily - 0600 methadone, 165 mg, oral, Daily mirtazapine, 15 mg, oral, Nightly pantoprazole DR, 40 mg, oral, Daily potassium chloride ER, 10 mEq, oral, Daily sertraline, 100 mg, oral, Daily sodium chloride 0.9%, 0.5-20 mL, intra-catheter, Q8H tamsulosin, 0.4 mg, oral, BID Continuous Infusions: PRN Meds:??? acetaminophen ??? albuterol ??? bisacodyl EC ??? clonazePAM ??? ipratropium-albuteroL ??? magnesium hydroxide ??? mineral oil ??? ondansetron ODT OR ondansetron ??? sodium chloride 0.9% Objective: Vitals: Vitals: 01/15/20 0048 01/15/20 0400 01/15/20 0731 01/15/20 0850 BP: 115/64 132/77 BP Location: Right arm Right arm Patient Position: Lying Lying Pulse: 59 55 66 Resp: 20 18 Temp: 36.2 ??C (97.1 ??F) 36.1 ??C (97 ??F) TempSrc: Temporal Temporal SpO2: 95% 97% 96% 94% Weight: Height: Physical Exam: Gen: awake, no acute distress, pleasant and cooperative, resting comfortably in bed, nasal cannula in place Neuro: no focal deficits, CN II-XII grossly intact Eyes: extraocular movement intact, sclerae anicteric HENT: supple, trachea midline, no thrush, mucosa moist, no JVD CV: regular rate and rhythm; no murmurs, rubs, or gallops; no peripheral edema Pulm: clear to auscultation bilaterally; no wheezes, rales, rhonchi; breathing nonlabored GI: soft, non-tender, non-distended, normal bowel sounds MSK: no cyanosis, clubbing, joint swelling, joint erythema Skin: no visible erythema, acute bruising, or open wounds Psych: normal mood and affect Labs: Lab Results Component Value Date GLUCOSE 111 (H) 01/15/2020 CALCIUM 9.0 01/15/2020 SODIUM 139 01/15/2020 POTASSIUM 3.2 (L) 01/15/2020 CO2 28 01/15/2020 CHLORIDE 100 01/15/2020 BUNSER 14 01/15/2020 CREATININE 0.80 01/15/2020 Lab Results Component Value Date WBC 8.3 01/15/2020 HGB 13.4 01/15/2020 HCT 41.2 01/15/2020 MCV 91.2 01/15/2020 LABPLAT 271 01/15/2020 Pertinent Labs: I have reviewed the pertinent labs. Radiology: Xr Chest 1 View Portable Result Date: 01/13/2020 Narrative: EXAMINATION: XR CHEST 1 VIEW ORDERING HEALTHCARE PROVIDER: STEVEN REINOSO HISTORY: Acute respiratory failure. Pneumonia. TECHNIQUE: Frontal chest radiograph. COMPARISON: Chest radiograph from 01/09/[address] from 01/10/2020. FINDINGS: LUNGS/PLEURA: There is patchy airspace opacity projecting over the right mid to lower lung, unchanged. There is a trace right pleural effusion. There is no evidence of airspace consolidation in the left lung. There is pulmonary emphysema and biapical pleural/scarring. HEART/MEDIASTINUM: The heart size is normal. The mediastinal and hilar contours are stable. There is a moderate hiatal hernia. HARDWARE/LINES/TUBES: None. BONES: There are no acute or aggressive appearing osseous abnormalities. Impression: 1. No significant change in right lower lobe pneumonia. Short interval imaging follow-up to resolution is recommended. 2. Trace right pleural effusion. 3. Pulmonary emphysema. 4. Moderatehiatal hernia. Electronically signed by: Silvestre Morales M.D. Xr Chest 1 Vw Portable Result Date: 01/09/2020 Narrative: EXAMINATION: XR CHEST 1 VIEW HISTORY: cough. Shortness of breath for days FINDINGS: Single view submitted with comparison 10/08/2017. There is been interval development of right mid and lower lung airspace consolidation. There is no pneumothorax. The heart size is within normal limits. Moderate hiatal hernia is noted. Impression: 1. Interval development of right middle and lower lung airspace consolidation, suspicious for pneumonia. Recommend radiographic follow-up to resolution. Electronically signed by: Felix Valiente M.D. Cta Chest W Contrast Result Date: 01/10/2020 Narrative: EXAMINATION: CTA CHEST W CONTRAST ORDERING HEALTHCARE PROVIDER: ABISAI ALEJANDRE HISTORY: Hypoxia shortness of breath, and elevated d-dimer since yesterday. History of emphysema. Concern for pulmonary embolism. COMPARISON: Chest radiograph from 01/09/2020 and chest radiograph from 10/08/2017.TECHNIQUE: CT chest of the chest (pulmonary embolism protocol) performed with intravenous contrast.Coronal and sagittal reformatted images were generated and reviewed. 3D volumetric MIP images were generated and reviewed. Automated exposure control was used as a dose optimization technique for this examination. CONTRAST: 125 mL of Optiray 350 contrast was administered via a left forearm IV. FINDINGS: VASCULATURE: Adequate contrast bolus, without evidence of pulmonary embolism. The main pulmonary artery is normal in course and caliber. There is mild atherosclerotic calcification and tortuosity/ectasia of the thoracic aorta. There are mild coronary artery calcifications. LUNGS: There is debris in the trachea. There is bilateral bronchial wall thickening. There is airspace consolidation throughout the right lower lobe. There is mild bilateral subsegmental atelectasis or scarring. There ismoderate centrilobular and paraseptal pulmonary emphysema. There is pleural/parenchyma scarring at the bilateral lung apices associated with biapical nodularity, measuring 3.6 x 3.1 cm on the right (axial image 14 of 92) and 2.4 cm on the left (axial image 11 of 92). There is a calcified right upper lobe pulmonary granuloma. There is a noncalcified 4 mm left lower lobe pulmonary nodule (axial image 67 of 92) and there is a 6 mm left lower lobe pulmonary nodule (axial image 37 of 92). PLEURA: There is a small right pleural effusion. There is no pneumothorax. MEDIASTINUM/TORREY: There are enlarged mediastinal lymph nodes. A credit and collections representative precarinal lymph node measures 2.0 x 1.3 cm (axial image35 of 92). A credit and collections representative subcarinal lymph node measures 3.0 x 1.5 cm (axial image 45 of 92). There is no hilar lymphadenopathy. There is a moderate hiatal hernia. HEART: The heart size is normal. There is no pericardial effusion. AXILLA: There is no axillary lymphadenopathy. CHEST WALL: There ismild bilateral gynecomastia. UPPER ABDOMEN: The liver has a nodular contour. The spleen is enlarged, measuring 13.2 cm in length. MUSCULOSKELETAL: There are no acute or aggressive appearing osseous abnormalities. There is mild multilevel degenerative change of the thoracic spine. There are multiplechronic thoracic spine compression fractures, unchanged. Impression: 1. No evidence of pulmonary embolism. 2. Right lower lobe pneumonia and small right pleural effusion. 3. Mediastinal lymphadenopathy, which is non- specific and may be reactive. A 2-3 month follow-up CT of the chest is recommended to assess for resolution of the right lower lobe airspace opacity and the mediastinal lymphadenopathy. 4. Moderate centrilobular and paraseptal emphysema. 5. Bilateral bronchiolitis and debris in the trachea, indicating that the patient may be at risk for aspiration. 6. Biapical pulmonary nodularity, which may related to pleural/parenchymal scarring, andscattered non-calcified pulmonary nodules, measuring up to 6 mm. Attention on follow-up imaging is r ecommended to assess for stability. 7. Nodular hepatic contour, as can be seen in setting of cirrhosis. 8. Mild splenomegaly (13.2 cm). Electronically signed by: Silvestre Morales M.D. Us Liver Result Date: 12/22/2019 Narrative: EXAMINATION: US LIVER ORDERING HEALTHCARE PROVIDER: PHAM HERRERA HISTORY: Chronic Hep C.COMPARISON: Liver ultrasound 10/28/2017 TECHNIQUE: Grayscale, color Doppler and spectral Doppler sonographic images of the right upper quadrant abdominal contents were reviewed. FINDINGS: LIVER: Coarsened hepatic echotexture which can be seen with chronic liver disease, with mildly increased echogenicity. This compromises evaluation for subtle masses although no distinct mass is seen. The hepaticsurface shows mild nodularity. The main portal vein is patent with hepatopedal flow. GALLBLADDER: The gallbladder is normally distended without gallstones or pericholecystic fluid. The gallbladder wall measures 2.4 mm thickness. BILE DUCTS: The common bile duct measures 4.8 mm in diameter. PANCREAS: Obscured by intervening bowel gas. RIGHT KIDNEY: Survey images of the right kidney demonstrate no hydronephrosis. OTHER: No other acute findings. Impression: 1. Cirrhotic appearance of the liver. 2. No evidence of acute cholecystitis. Electronically signed by: Grover Davis M.D. Us Vein Duplex Lower Extremity Bilateral Complete Result Date: 01/10/2020 Narrative: EXAMINATION: US VEIN DUPLEX LOWER EXTREMITY BILATERAL COMPLETE ORDERING HEALTHCARE PROVIDER: ABISAI ALEJANDRE HISTORY: Elevated d-dimer. Concern for deep vein thrombosis. COMPARISON: None available. TECHNIQUE: Grayscale, color and spectral Doppler sonographic evaluation of the bilateral lowerextremity deep venous systems from the common femoral to the popliteal vein with compression and augmentation. FINDINGS: The bilateral common femoral, superficial femoral, and popliteal veins are readily compressible with no intraluminal thrombus on loera scale images. There is normal color and spectral Doppler signal, including augmentation. The bilateral greater saphenous veins appear patent. The visualized portions of the bilateral posterior tibial and peroneal veins are patent. Impression: No evidence of deep vein thrombosis in the bilateral lower extremities. Electronically signed by: Silvestre Morales M.D. 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 Continue azithromycin day 6. Wean supplemental O2 as tolerated. Hypothyroidism TSH was low, levothyroxine dose decreased, will need repeat TSH and free T4 in 4-6 weeks. DVT PPx Update 01/14: SOB continues to slowly improve. Wean supplemental O2 as tolerated (was increased to 3 L overnight, but is currently doing well on 2L again). Start incentive spirometry. Continue azithromycin day 7. MDM: low complexity Patricio Vieira Jr., MD Internal Medicine - Hospitalist [facility] - Adult Hospitalist Service 01/15/2020 1:00 PM * Patricio Vieira Jr., MD - 01/14/2020 5:26 PM CDT [facility] Hospitalist Service Progress Note Patient Name: Saravanan Lanza Patient : 1955 Age/Sex: 64 y.o. male Room/Bed: [id number] Admission Date/Time: 01/09/2020 1:57 PM Date: 01/14/2020 Time: 5:26 PM Chief Complaint: shortness of breath Subjective: Today the patient states that his breathing is a little bit better today and has supplemental oxygen is now down to 2 L (wean was attempted to 1.5 L, however he desaturated with minimal activity to the mid 80s). Allergies: Allergies Allergen Reactions ??? Narcan [Naloxone] Other (See comments) Patient indicating he cannot have narcan no matter what (methodone prescription) Current Medication List: Scheduled Meds:azithromycin, 500 mg, oral, Daily baclofen, 10 mg, oral, TID budesonide-formoteroL, 2 puff, inhalation, BID (RT) cefTRIAXone, 2,000 mg, intravenous, Q24H BEBE enoxaparin, 40 mg, subcutaneous, Daily-2100 levothyroxine, 75 mcg, oral, Daily - 0600 methadone, 165 mg, oral, Daily mirtazapine, 15 mg, oral, Nightly pantoprazole DR, 40 mg, oral, Daily potassium chloride ER, 10 mEq, oral, Daily sertraline, 100 mg, oral, Daily sodium chloride 0.9%, 0.5-20 mL, intra-catheter, Q8H tamsulosin, 0.4 mg, oral, BID Continuous Infusions: PRN Meds:??? acetaminophen ??? albuterol ??? bisacodyl EC ??? clonazePAM ??? ipratropium-albuteroL ??? magnesium hydroxide ??? mineral oil ??? ondansetron ODT OR ondansetron ??? sodium chloride 0.9% Objective: Vitals: Vitals: 01/14/20 0400 01/14/20 0758 01/14/20 0842 01/14/20 1606 BP: 123/66 120/76 BP Location: Right arm Right arm Patient Position: Lying Lying Pulse: 53 97 60 Resp: Temp: 36.3 ??C (97.3 ??F) 36.2 ??C (97.1 ??F) TempSrc: Temporal Temporal SpO2: 96% 96% 96% 94% Weight: Height: Physical Exam: Gen: awake, no acute distress, pleasant and cooperative, resting comfortably in bed, nasal cannula in place Neuro: no focal deficits, CN II-XII grossly intact Eyes: extraocular movement intact, sclerae anicteric HENT: supple, trachea midline, no thrush, mucosa moist, no JVD CV: regular rate and rhythm; no murmurs, rubs, or gallops; no peripheral edema Pulm: diminished breath sounds at bilateral bases GI: soft, non-tender, non-distended, normal bowel sounds MSK: no cyanosis, clubbing, joint swelling, joint erythema Skin: no visible erythema, acute bruising, or open wounds Psych: normal mood and affect Labs: Lab Results Component Value Date GLUCOSE 71 01/14/2020 CALCIUM 8.6 01/14/2020 SODIUM 136 01/14/2020 POTASSIUM 3.2 (L) 01/14/2020 CO2 26 01/14/2020 CHLORIDE 101 01/14/2020 BUNSER 17 01/14/2020 CREATININE 0.74 (L) 01/14/2020 Lab Results Component Value Date WBC 7.3 01/14/2020 HGB 11.9 (L) 01/14/2020 HCT 36.2 (L) 01/14/2020 MCV 90.5 01/14/2020 LABPLAT 194 01/14/2020 Pertinent Labs: I have reviewed the pertinent labs. Radiology: Xr Chest 1 View Portable Result Date: 01/13/2020 Narrative: EXAMINATION: XR CHEST 1 VIEW ORDERING HEALTHCARE PROVIDER: STEVEN REINOSO HISTORY: Acute respiratory failure. Pneumonia. TECHNIQUE: Frontal chest radiograph. COMPARISON: Chest radiograph from 01/09/[address] from 01/10/2020. FINDINGS: LUNGS/PLEURA: There is patchy airspace opacity projecting over the right mid to lower lung, unchanged. There is a trace right pleural effusion. There is no evidence of airspace consolidation in the left lung. There is pulmonary emphysema and biapical pleural/scarring. HEART/MEDIASTINUM: The heart size is normal. The mediastinal and hilar contours are stable. There is a moderate hiatal hernia. HARDWARE/LINES/TUBES: None. BONES: There are no acute or aggressive appearing osseous abnormalities. Impression: 1. No significant change in right lower lobe pneumonia. Short interval imaging follow-up to resolution is recommended. 2. Trace right pleural effusion. 3. Pulmonary emphysema. 4. Moderatehiatal hernia. Electronically signed by: Silvestre Morales M.D. Xr Chest 1 Vw Portable Result Date: 01/09/2020 Narrative: EXAMINATION: XR CHEST 1 VIEW HISTORY: cough. Shortness of breath for days FINDINGS: Single view submitted with comparison 10/08/2017. There is been interval development of right mid and lower lung airspace consolidation. There is no pneumothorax. The heart size is within normal limits. Moderate hiatal hernia is noted. Impression: 1. Interval development of right middle and lower lung airspace consolidation, suspicious for pneumonia. Recommend radiographic follow-up to resolution. Electronically signed by: Felix Valiente M.D. Cta Chest W Contrast Result Date: 01/10/2020 Narrative: EXAMINATION: CTA CHEST W CONTRAST ORDERING HEALTHCARE PROVIDER: ABISAI ALEJANDRE HISTORY: Hypoxia shortness of breath, and elevated d-dimer since yesterday. History of emphysema. Concern for pulmonary embolism. COMPARISON: Chest radiograph from 01/09/2020 and chest radiograph from 10/08/2017.TECHNIQUE: CT chest of the chest (pulmonary embolism protocol) performed with intravenous contrast.Coronal and sagittal reformatted images were generated and reviewed. 3D volumetric MIP images were generated and reviewed. Automated exposure control was used as a dose optimization technique for this examination. CONTRAST: 125 mL of Optiray 350 contrast was administered via a left forearm IV. FINDINGS: VASCULATURE: Adequate contrast bolus, without evidence of pulmonary embolism. The main pulmonary artery is normal in course and caliber. There is mild atherosclerotic calcification and tortuosity/ectasia of the thoracic aorta. There are mild coronary artery calcifications. LUNGS: There is debris in the trachea. There is bilateral bronchial wall thickening. There is airspace consolidation throughout the right lower lobe. There is mild bilateral subsegmental atelectasis or scarring. There ismoderate centrilobular and paraseptal pulmonary emphysema. There is pleural/parenchyma scarring at the bilateral lung apices associated with biapical nodularity, measuring 3.6 x 3.1 cm on the right (axial image 14 of 92) and 2.4 cm on the left (axial image 11 of 92). There is a calcified right upper lobe pulmonary granuloma. There is a noncalcified 4 mm left lower lobe pulmonary nodule (axial image 67 of 92) and there is a 6 mm left lower lobe pulmonary nodule (axial image 37 of 92). PLEURA: There is a small right pleural effusion. There is no pneumothorax. MEDIASTINUM/TORREY: There are enlarged mediastinal lymph nodes. A credit and collections representative precarinal lymph node measures 2.0 x 1.3 cm (axial image35 of 92). A credit and collections representative subcarinal lymph node measures 3.0 x 1.5 cm (axial image 45 of 92). There is no hilar lymphadenopathy. There is a moderate hiatal hernia. HEART: The heart size is normal. There is no pericardial effusion. AXILLA: There is no axillary lymphadenopathy. CHEST WALL: There ismild bilateral gynecomastia. UPPER ABDOMEN: The liver has a nodular contour. The spleen is enlarged, measuring 13.2 cm in length. MUSCULOSKELETAL: There are no acute or aggressive appearing osseous abnormalities. There is mild multilevel degenerative change of the thoracic spine. There are multiplechronic thoracic spine compression fractures, unchanged. Impression: 1. No evidence of pulmonary embolism. 2. Right lower lobe pneumonia and small right pleural effusion. 3. Mediastinal lymphadenopathy, which is non- specific and may be reactive. A 2-3 month follow-up CT of the chest is recommended to assess for resolution of the right lower lobe airspaceopacity and the mediastinal lymphadenopathy. 4. Moderate centrilobular and paraseptal emphysema. 5.Bilateral bronchiolitis and debris in the trachea, indicating that the patient may be at risk for aspiration. 6. Biapical pulmonary nodularity, which may related to pleural/parenchymal scarring, and scattered non-calcified pulmonary nodules, measuring up to 6 mm. Attention on follow-up imaging is re commended to assess for stability. 7. Nodular hepatic contour, as can be seen in setting of cirrhosis. 8. Mild splenomegaly (13.2 cm). Electronically signed by: Silvestre Morales M.D. Us Liver Result Date: 12/22/2019 Narrative: EXAMINATION: US LIVER ORDERING HEALTHCARE PROVIDER: PHAM HERRERA HISTORY: Chronic Hep C.COMPARISON: Liver ultrasound 10/28/2017 TECHNIQUE: Grayscale, color Doppler and spectral Doppler sonographic images of the right upper quadrant abdominal contents were reviewed. FINDINGS: LIVER: Coarsened hepatic echotexture which can be seen with chronic liver disease, with mildly increased echogenicity. This compromises evaluation for subtle masses although no distinct mass is seen. The hepaticsurface shows mild nodularity. The main portal vein is patent with hepatopedal flow. GALLBLADDER: The gallbladder is normally distended without gallstones or pericholecystic fluid. The gallbladder wall measures 2.4 mm thickness. BILE DUCTS: The common bile duct measures 4.8 mm in diameter. PANCREAS: Obscured by intervening bowel gas. RIGHT KIDNEY: Survey images of the right kidney demonstrate no hydronephrosis. OTHER: No other acute findings. Impression: 1. Cirrhotic appearance of the liver. 2. No evidence of acute cholecystitis. Electronically signed by: Grover Davis M.D. Us Vein Duplex Lower Extremity Bilateral Complete Result Date: 01/10/2020 Narrative: EXAMINATION: US VEIN DUPLEX LOWER EXTREMITY BILATERAL COMPLETE ORDERING HEALTHCARE PROVIDER: ABISAI ALEJANDRE HISTORY: Elevated d-dimer. Concern for deep vein thrombosis. COMPARISON: None available. TECHNIQUE: Grayscale, color and spectral Doppler sonographic evaluation of the bilateral lowerextremity deep venous systems from the common femoral to the popliteal vein with compression and augmentation. FINDINGS: The bilateral common femoral, superficial femoral, and popliteal veins are readily compressible with no intraluminal thrombus on loera scale images. There is normal color and spectral Doppler signal, including augmentation. The bilateral greater saphenous veins appear patent. The visualized portions of the bilateral posterior tibial and peroneal veins are patent. Impression: No evidence of deep vein thrombosis in the bilateral lower extremities. Electronically signed by: Silvestre Morales M.D. 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 Continue azithromycin day 6. Wean supplemental O2 as tolerated. Hypothyroidism TSH was low, levothyroxine dose decreased, will need repeat TSH and free T4 in 4-6 weeks. DVT PPx I spent a total of 25 Face to Face minutes of which more than 50% of the time was spent in counseling and coordination of care. This time included: reviewing the chart, examining the patient, and discussing the treatment plan with the patient. MDM: moderate complexity Patricio Vieira Jr., MD Internal Medicine - Hospitalist [facility] - Adult Hospitalist Service 01/14/2020 5:26 PM * Steven Reinoso MD - 01/13/2020 3:10 PM CDT Hospitalist Daily Progress SUBJECTIVE: Chief Complaint Patient presents with ??? Shortness of Breath Interval History: Patient states that overall feels better. Remains afebrile. Denies any nausea, vomiting, abdominal pain, dysuria. Had been ambulating earlier today. Drop down his oxygen saturation levels really quickly of the oxygen. Continues to be on 6 L of supplemental oxygen currently. 01/12: Feels better. Oxygen was tapered down to 3 L. Denies any fever. Leukocytosis resolved. OBJECTIVE: Vitals: 24hr Min/Max: Temp Min: 36.1 ??C (96.9 ??F) Max: 36.6 ??C (97.9 ??F) Pulse Min: 54 Max: 71 BP Min: 112/66 Max: 142/80 Resp Min: 20 Max: 20 SpO2 Min: 93 % Max: 97 % Most Recent : Vitals: 01/13/20 0010 01/13/20 0400 01/13/20 0736 01/13/20 0753 BP: 112/66 124/63 BP Location: Right arm Right arm Patient Position: Lying Pulse: 61 58 54 Resp: 20 20 Temp: 36.1 ??C (96.9 ??F) 36.3 ??C (97.3 ??F) TempSrc: Temporal Temporal SpO2: 94% 97% 96% 93% Weight: Height: I/O last 2 completed shifts: In: 440 [P.O.:440] Out: 200 [Urine:200] I/O this shift: In: 850 [P.O.:600; IV Piggyback:250] Out: - Physical Exam General appearance: Alert, oriented, in no distress. HEENT: Sclera Nonicteric. Moist mucous membrane. CVS: S1, S2 normal Respiration: Diminished breath sounds bilateral bases. Occasional rhonchi at the bases Abdomen: Soft, nontender, nondistended, bowel sounds normoactive Extremities: No pedal edema, no calf tenderness Neuro: No focal deficits Psychiatric: Normal mood and affect Lab/Radiology/Diagnostic Review: Recent Results (from the past 24 hour(s)) CBC with auto differential Collection Time: 01/13/20 5:10 AM Result Value Ref Range WBC 6.8 3.8 - 9.9 K/cumm Hgb 12.0 (L) 13.0 - 17.5 g/dL Hct 36.6 (L) 38.9 - 50.3 % Plt 163 150 - 400 K/cumm MPV 10.5 9.1 - 12.3 fL RBC 4.03 (L) 4.30 - 5.80 M/cumm MCV 90.8 81.3 - 96.4 fL MCH 29.8 27.1 - 33.3 pg MCHC 32.8 32.3 - 35.7 g/dL RDW CV 14.3 11.1 - 14.9 % RDW SD 48.0 35.7 - 48.1 fL NRBC abs 0.00 0.00 - 0.01 K/cumm Basic metabolic panel Collection Time: 01/13/20 5:10 AM Result Value Ref Range Sodium 139 135 - 145 mmol/L Potassium, pl 3.3 3.3 - 4.9 mmol/L Chloride 101 97 - 110 mmol/L CO2 29 22 - 32 mmol/L Anion gap 9 2 - 15 mmol/L BUN 21 8 - 25 mg/dL Creatinine 0.84 0.80 - 1.30 mg/dL Glucose 73 70 - 199 mg/dL Calcium 8.9 8.5 - 10.3 mg/dL eGFR Collection Time: 01/13/20 5:10 AM Result Value Ref Range GFR 92 mL/min/1.73 m2 Manual Differential Collection Time: 01/13/20 5:10 AM Result Value Ref Range Differential Manual Cells Counted 100 Neutrophil abs 5.1 1.7 - 6.5 K/cumm Imm gran abs 0.4 (H) 0.0 - 0.1 K/cumm Lymphocyte abs 1.0 0.8 - 3.3 K/cumm Monocyte abs 0.3 0.2 - 0.8 K/cumm Neutrophil pct 69.0 % Lymphocyte pct 12.0 % Monocyte pct 4.0 % Neutrophilic bands 6.0 (H) 0.0 - 5.0 % Neutrophilic metamyelocytes 4.0 (H) 0.0 - 0.0 % Myelocytes 2.0 (H) 0.0 - 0.0 % Variant lymphs 3.0 (H) 0.0 - 0.0 % ASSESSMENT/PLAN: 1. Sepsis -resolved: Likely secondary to pneumonia. Legionella antigen positive. COVID-19 negative.Streptococcal antigen negative. Procalcitonin level elevated. Blood culture negative to date. Currently on IV antibiotics. WBC elevated, but the patient also received steroid in the ER. Will monitor clinically. 2. Community-acquired pneumonia: Secondary to Legionella. Continue azithromycin. Blood culture negative to date. Continue tapering down oxygen as tolerated. 3. Acute hypoxemic respiratory failure: secondary to Legionella pneumonia. COVID-[address] PEprotocol obtain due to elevated D-dimer, was negative for any pulmonary embolus. Continue supplemental O2. Wean off as tolerated. 4. Acute COPD exacerbation: Continue Symbicort, DuoNeb, antibiotics. 5. Elevated D-dimer: CT scan PE protocol and venous Doppler negative. 6. Hyponatremia: Resolved 7. Hypokalemia: Replaced. Resolved 8. Altered mental status: ammonia not elevated. Urine drug screen positive for benzodiazepine and methadone. 9. Diarrhea: Stool culture had not been collected yet. 10. Hypothyroidism: TSH decreased, decrease levothyroxine, repeat free T4, TSH in 4-6 weeks. 11. Cirrhosis of the liver without ascites: Per history history of chronic hepatitis-C. Outpatient follow-up with GI for variceal surveillance, AFP. 12. Chronic opioid dependence: Verified his methadone dose from the pharmacy. MDM: Moderate Time spent: 20 minutes Principal Problem: Sepsis (CMS/HCC) Active Problems: Pneumonia COPD without exacerbation (CMS/HCC) Hyponatremia Diarrhea Altered mental status Cirrhosis of liver without ascites (CMS/HCC) Voice recognition software [employer] Direct was used dictate and transcribe this document. Sales Order Clerk variances may occur. Despite proofreading, typographical errors may occur. Steven Reinoso MD [facility] - Adult Hospitalist Service * Danica Leonard [facility] - 01/13/2020 10:51 AM CDT Antimicrobial Stewardship Team Note IV to PO/Enteral This patient has been assessed by the Antimicrobial Stewardship Team and meets P&T-approved criteria for IV to PO/enteral therapy conversion. Criteria for switching include: no fever, WBC wnl, taking other oral meds, >48hrs IV therapy Will change existing order for Azithromycin 500 mg IV to PO/enteral 500 mg oral daily per protocol. Thank you, Danica Leonard [facility] department [phone] * Steven Reinoso MD - 01/12/2020 5:35 PM CDT Hospitalist Daily Progress SUBJECTIVE: Chief Complaint Patient presents with ??? Shortness of Breath Interval History: Patient states that overall feels better. Remains afebrile. Denies any nausea, vomiting, abdominal pain, dysuria. Had been ambulating earlier today. Drop down his oxygen saturation levels really quickly of the oxygen. Continues to be on 6 L of supplemental oxygen currently. OBJECTIVE: Vitals: 24hr Min/Max: Temp Min: 36.1 ??C (97 ??F) Max: 36.6 ??C (97.9 ??F) Pulse Min: 48 Max: 76 BP Min: 101/70 Max: 142/80 Resp Min: 16 Max: 20 SpO2 Min: 94 % Max: 100 % Most Recent : Vitals: 01/12/20 0118 01/12/20 0400 01/12/20 0755 01/12/20 1600 BP: 126/75 101/70 142/80 BP Location: Right arm Right arm Left arm Patient Position: Sitting Pulse: 51 (!) 48 54 76 Resp: 16 20 20 Temp: 36.1 ??C (97 ??F) 36.1 ??C (97 ??F) 36.6 ??C (97.9 ??F) TempSrc: Temporal Temporal Temporal SpO2: 100% 98% 97% 96% Weight: Height: I/O last 2 completed shifts: In: 720 [P.O.:720] Out: 180 [Urine:180] I/O this shift: In: 440 [P.O.:440] Out: - Physical Exam General appearance: Alert, oriented, in no distress. HEENT: Atraumatic, normocephalic. Pupils equal and reactive to light. Extraocular movements intact.Moist mucous membrane. CVS: S1, S2 normal Respiration: Diminished breath sounds bilateral bases. Occasional rhonchi at the bases Abdomen: Soft, nontender, nondistended, bowel sounds normoactive Extremities: No pedal edema, no calf tenderness Neuro: No focal deficits Psychiatric: Normal mood and affect Lab/Radiology/Diagnostic Review: Recent Results (from the past 24 hour(s)) CBC with auto differential Collection Time: 01/12/20 4:50 AM Result Value Ref Range WBC 7.7 3.8 - 9.9 K/cumm Hgb 12.9 (L) 13.0 - 17.5 g/dL Hct 39.2 38.9 - 50.3 % Plt 151 150 - 400 K/cumm MPV 10.7 9.1 - 12.3 fL RBC 4.34 4.30 - 5.80 M/cumm MCV 90.3 81.3 - 96.4 fL MCH 29.7 27.1 - 33.3 pg MCHC 32.9 32.3 - 35.7 g/dL RDW CV 13.9 11.1 - 14.9 % RDW SD 46.8 35.7 - 48.1 fL NRBC abs 0.00 0.00 - 0.01 K/cumm Basic metabolic panel Collection Time: 01/12/20 4:50 AM Result Value Ref Range Sodium 135 135 - 145 mmol/L Potassium, pl 3.3 3.3 - 4.9 mmol/L Chloride 95 (L) 97 - 110 mmol/L CO2 29 22 - 32 mmol/L Anion gap 11 2 - 15 mmol/L BUN 28 (H) 8 - 25 mg/dL Creatinine 0.88 0.80 - 1.30 mg/dL Glucose 80 70 - 199 mg/dL Calcium 9.4 8.5 - 10.3 mg/dL eGFR Collection Time: 01/12/20 4:50 AM Result Value Ref Range GFR 90 mL/min/1.73 m2 Manual Differential Collection Time: 01/12/20 4:50 AM Result Value Ref Range Differential Manual Cells Counted 100 Neutrophil abs 6.6 (H) 1.7 - 6.5 K/cumm Imm gran abs 0.2 (H) 0.0 - 0.1 K/cumm Lymphocyte abs 0.5 (L) 0.8 - 3.3 K/cumm Monocyte abs 0.5 0.2 - 0.8 K/cumm Neutrophil pct 83.0 % Lymphocyte pct 7.0 % Monocyte pct 6.0 % Neutrophilic bands 2.0 0.0 - 5.0 % Myelocytes 2.0 (H) 0.0 - 0.0 % RBC morphology Consistent with RBC Indicies Platelet estimate Adequate ASSESSMENT/PLAN: 1. Sepsis -resolved: Likely secondary to pneumonia. Legionella antigen positive. COVID-19 negative.Streptococcal antigen negative. Procalcitonin level elevated. Blood culture negative to date. Currently on IV antibiotics. WBC elevated, but the patient also received steroid in the ER. Will monitor clinically. 2. Community-acquired pneumonia: Secondary to Legionella. Continue azithromycin. Blood culture negative to date. States that he helps his mother in her garden at times. 3. Acute hypoxemic respiratory failure: secondary to pneumonia. COVID-[address] PE protocol obtain due to elevated D-dimer, was negative for any pulmonary embolus. Continue supplemental O2. Wean off as tolerated. 4. Acute COPD exacerbation: Continue Symbicort, DuoNeb, antibiotics. 5. Elevated D-dimer: CT scan PE protocol and venous Doppler negative. 6. Hyponatremia: Improving. 7. Hypokalemia: Replaced. 8. Altered mental status: ammonia not elevated. Urine drug screen positive for benzodiazepine and methadone. 9. Diarrhea: Stool culture pending. 10. Hypothyroidism: TSH decreased, decrease levothyroxine, repeat free T4, TSH in 4-6 weeks. 11. Cirrhosis of the liver without ascites: Per history history of chronic hepatitis-C. Outpatient follow-up with GI for variceal surveillance, AFP. 12. Chronic opioid dependence: Verified his methadone dose from the pharmacy. MDM: Moderate Time spent: 20 minutes Principal Problem: Sepsis (CMS/HCC) Active Problems: Pneumonia COPD without exacerbation (CMS/HCC) Hyponatremia Diarrhea Altered mental status Cirrhosis of liver without ascites (CMS/HCC) Voice recognition software [employer] Direct was used dictate and transcribe this document. Sales Order Clerk variances may occur. Despite proofreading, typographical errors may occur. Steven Reinoso MD [facility] - Adult Hospitalist Service * Ella Mckenzie, RD - 01/11/2020 12:37 PM CDT Nutrition Assessment Reason for Assessment: Screened at Nutrition Risk and Initial Nutrition Assessment Encounter Date: 01/11/20 12:37 PM Nutrition Assessment and Plan: Patient is a 64 y.o. male. Admit Dx: PNEUMONIA. Admitted on 01/09/2020, current LOS is 2 days. Nutrition Screen What diet do you follow at home?: no Have You Recently Lost Weight Without Trying?: No Poor Oral Intake for Four or More Days Prior to Admission: Yes (Comment) Current diet order: Adult Diet Regular Pt intake is inconsistent. PO intakes: 25-100% of meals. Wt Readings from Last 10 Encounters: 01/09/20 66.5 kg (146 lb 9.7 oz) 06/04/19 68 kg (150 lb) 04/05/19 68 kg (150 lb) 04/29/18 68.9 kg (152 lb) 11/24/17 63.5 kg (140 lb) 09/08/17 73.3 kg (161 lb 9.6 oz) 08/12/17 76.1 kg (167 lb 12.8 oz) 07/21/17 76.7 kg (169 lb) 06/16/17 73.9 kg (163 lb) Nutrition Diagnosis 1: Increased energy expenditure Related to: Acute illness/injury Evidenced by: Physical finding ?? Interventions: Orr diet preferences within the limits of nutrition care order, Meals and snacks ?? Monitoring and Evaluation: Discharge plans, Labs, PO intake ?? Goals: Adequate nutrition to meet estimated needs by next assessment ? Estimated needs: ?? Total Kcal/kg Estimated Needs : 2127 based on Kcal/k. Type of Weight Used for Estimated Kcals: Current ?? MSJ Total Energy Needs: 6.64 kcal using Stress Factor: 1.2 Activity Factor: 1.2 ?? Total Protein Estimated Needs (gm): 53.2 Protein Needs Based on g/k.8 Type of Weight Used for Estimated Protein : Current. ?? Total Fluid Estimated Needs: 1994 Fluid Needs Based on : 30 ml/kg. Objective Anthropometrics Weight: 66.5 kg (146 lb 9.7 oz) Admission Weight : 66.5 kg Weight Change: -1.53 kg (-3.39 lbs) IBW/kg (Calculated) : 75.3 kg Height: 177.8 cm (5' 10 ) Weight in (lb) to have BMI = 25: 173.9 BMI (Calculated): 21 3 Day I/O Summary 01/08 1900 - 01/10 0659 In: 1140 [P.O.:1140] Out: 200 [Urine:200] Temp: 36.4 ??C (97.6 ??F) Past Medical History: Diagnosis Date ??? Depression ??? Emphysema of lung (CMS/HCC) ??? Infectious viral hepatitis ??? Kidney stone ??? Melena Medications and Lab Review: Scheduled Meds: azithromycin, 500 mg, intravenous, Q24H BEBE baclofen, 10 mg, oral, TID budesonide-formoteroL, 2 puff, inhalation, BID (RT) cefTRIAXone, 2,000 mg, intravenous, Q24H BEBE enoxaparin, 40 mg, subcutaneous, Daily-2100 levothyroxine, 75 mcg, oral, Daily - 0600 methadone, 165 mg, oral, Daily mirtazapine, 15 mg, oral, Nightly pantoprazole DR, 40 mg, oral, Daily potassium chloride ER, 10 mEq, oral, Daily sertraline, 100 mg, oral, Daily tamsulosin, 0.4 mg, oral, BID Continuous Infusions: Sodium Date Value Ref Range Status 01/11/2020 132 (L) 135 - 145 mmol/L Final Potassium, pl Date Value Ref Range Status 01/11/2020 3.4 3.3 - 4.9 mmol/L Final BUN Date Value Ref Range Status 01/11/2020 32 (H) 8 - 25 mg/dL Final Creatinine Date Value Ref Range Status 01/11/2020 0.77 (L) 0.80 - 1.30 mg/dL Final Albumin Date Value Ref Range Status 01/09/2020 3.4 (L) 3.5 - 5.0 g/dL Final Calcium Date Value Ref Range Status 01/11/2020 9.3 8.5 - 10.3 mg/dL Final No results found for: HGBA1C POC Glucose: na(01/10) Nursing Assessment: Nithin Scale Score: 18 Nutrition Follow-Up : 01/17/[address],LDN * Abisai Alejandre MD - 01/11/2020 11:01 AM CDT Hospitalist Daily Progress SUBJECTIVE: Chief Complaint Patient presents with ??? Shortness of Breath Interval History: Patient overall feeling better. Denies any increase in shortness of breath or cough. Denies any fever or chills. Denies any watery diarrhea. OBJECTIVE: Vitals: 24hr Min/Max: Temp Min: 35.6 ??C (96 ??F) Max: 36.4 ??C (97.6 ??F) Pulse Min: 59 Max: 86 BP Min: 117/87 Max: 130/97 Resp Min: 17 Max: 19 SpO2 Min: 96 % Max: 98 % Most Recent : Vitals: 01/11/20 0400 01/11/20 0550 01/11/20 0757 01/11/20 0809 BP: 125/87 BP Location: Right arm Patient Position: Sitting Pulse: 68 64 Resp: 17 Temp: (!) 35.9 ??C (96.6 ??F) 36.4 ??C (97.6 ??F) TempSrc: Temporal SpO2: 98% 97% 96% Weight: Height: I/O last 2 completed shifts: In: 1140 [P.O.:1140] Out: 200 [Urine:200] I/O this shift: In: 120 [P.O.:120] Out: - Physical Exam General appearance: Alert, oriented, in no distress. HEENT: Atraumatic, normocephalic. Pupils equal and reactive to light. Extraocular movements intact.Moist mucous membrane. CVS: S1, S2 normal Respiration: Diminished breath sounds bilateral bases. Occasional rhonchi at the bases Abdomen: Soft, nontender, nondistended, bowel sounds normoactive Extremities: No pedal edema, no calf tenderness Neuro: No focal deficits Psychiatric: Normal mood and affect Lab/Radiology/Diagnostic Review: Recent Results (from the past 24 hour(s)) CBC with auto differential Collection Time: 01/11/20 5:26 AM Result Value Ref Range WBC 10.6 (H) 3.8 - 9.9 K/cumm Hgb 12.3 (L) 13.0 - 17.5 g/dL Hct 36.1 (L) 38.9 - 50.3 % Plt 152 150 - 400 K/cumm MPV 11.3 9.1 - 12.3 fL RBC 4.12 (L) 4.30 - 5.80 M/cumm MCV 87.6 81.3 - 96.4 fL MCH 29.9 27.1 - 33.3 pg MCHC 34.1 32.3 - 35.7 g/dL RDW CV 13.6 11.1 - 14.9 % RDW SD 43.8 35.7 - 48.1 fL NRBC abs 0.00 0.00 - 0.01 K/cumm Basic metabolic panel Collection Time: 01/11/20 5:26 AM Result Value Ref Range Sodium 132 (L) 135 - 145 mmol/L Potassium, pl 3.4 3.3 - 4.9 mmol/L Chloride 95 (L) 97 - 110 mmol/L CO2 27 22 - 32 mmol/L Anion gap 10 2 - 15 mmol/L BUN 32 (H) 8 - 25 mg/dL Creatinine 0.77 (L) 0.80 - 1.30 mg/dL Glucose 116 70 - 199 mg/dL Calcium 9.3 8.5 - 10.3 mg/dL Differential, auto Collection Time: 01/11/20 5:26 AM Result Value Ref Range Neutrophil abs 9.7 (H) 1.7 - 6.5 K/cumm Imm gran abs 0.2 (H) 0.0 - 0.1 K/cumm Lymphocyte abs 0.4 (L) 0.8 - 3.3 K/cumm Monocyte abs 0.4 0.2 - 0.8 K/cumm Eosinophil abs 0.0 0.0 - 0.5 K/cumm Basophil abs 0.0 0.0 - 0.1 K/cumm Neutrophil pct 91.2 % Imm gran pct 1.6 % Lymphocyte pct 3.4 % Monocyte pct 3.6 % Eosinophil pct 0.0 % Basophil pct 0.2 % eGFR Collection Time: 01/11/20 5:26 AM Result Value Ref Range GFR 95 mL/min/1.73 m2 ASSESSMENT/PLAN: 1. Sepsis: Likely secondary to pneumonia. Legionella antigen positive. COVID-19 negative. Streptococcal antigen negative. Procalcitonin level elevated. Blood culture negative to date. Continue IV antibiotics. WBC elevated, but the patient also received steroid in the ER. Will monitor clinically. 2. Community-acquired pneumonia: Secondary to Legionella. Continue azithromycin. Blood culture negative to date. States that he helps his mother in her garden at times. 3. Acute hypoxemic respiratory failure: Likely secondary to pneumonia. COVID-[address] PE protocol obtain due to elevated D-dimer, was negative for any pulmonary embolus. Continue supplemental O2. Wean off as tolerated. 4. Acute COPD exacerbation: Continue Symbicort, DuoNeb, antibiotics. 5. Elevated D-dimer: CT scan PE protocol and venous Doppler negative. 6. Hyponatremia: Improving. 7. Hypokalemia: Replaced. 8. Altered mental status: ammonia not elevated. Urine drug screen positive for benzodiazepine and methadone. 9. Diarrhea: Stool culture pending. 10. Hypothyroidism: TSH decreased, decrease levothyroxine, repeat free T4, TSH in 4-6 weeks. 11. Cirrhosis of the liver without ascites: Per history history of chronic hepatitis-C. Outpatient follow-up with GI for variceal surveillance, AFP. 12. Chronic opioid dependence: Verified his methadone dose from the pharmacy. MDM: Moderate Time spent: 25 minutes Principal Problem: Sepsis (CMS/HCC) Active Problems: Pneumonia COPD without exacerbation (CMS/HCC) Hyponatremia Diarrhea Altered mental status Cirrhosis of liver without ascites (CMS/HCC) Voice recognition software [employer] was used dictate and transcribe this document. Sales Order Clerk variances may occur. Despite proofreading, typographical errors may occur. Abisai Alejandre MD [facility] - Adult Hospitalist Service * Christophe Aragon RN - 01/10/2020 11:35 AM CDT 01/10/20 1135 Information Information Obtained From Patient Referral Data Referral Source Self referral Referral Reason Discharge Planning Financial Resource Income SSD/SSI Payor Source Medicare;Medicaid Potential Discharge Needs Home Health (unclear at this time) Anticipated discharge level of care Private residence Pt/Family agrees with Anticipated Level of Care Unknown Patient expects to be discharged to: Private residence Dialysis No Behavioral Health Services No Pt lives in his mothers home uses no aids, and states he handles his ADL's however looks unkempt and states he is on Methadone. Will continue to follow as needed, goal is to return home. Pt is currently on oxygen but uses none in the home so may have new oxygen need. Sister will transport home. * Abisai Alejandre MD - 01/10/2020 7:41 AM CDT Hospitalist Daily Progress SUBJECTIVE: Chief Complaint Patient presents with ??? Shortness of Breath Interval History: States that he feels much better since admission. Denies any fever or chills. Denies any watery diarrhea. OBJECTIVE: Vitals: 24hr Min/Max: Temp Min: 35.8 ??C (96.5 ??F) Max: 38.6 ??C (101.4 ??F) Pulse Min: 58 Max: 104 BP Min: 97/59 Max: 127/88 Resp Min: 12 Max: 34 SpO2 Min: 88 % Max: 97 % Most Recent : Vitals: 01/09/20 2018 01/09/20 2347 01/10/20 0345 01/10/20 0739 BP: 104/68 97/59 108/70 116/80 BP Location: Right arm Right arm Right arm Right arm Patient Position: Lying Lying Lying Pulse: 68 93 58 67 Resp: 20 12 14 21 Temp: 36.3 ??C (97.3 ??F) 36.4 ??C (97.6 ??F) (!) 35.8 ??C (96.5 ??F) 36.2 ??C (97.2 ??F) TempSrc: Temporal Temporal Temporal Temporal SpO2: 97% 97% 95% 97% Weight: Height: No intake/output data recorded. No intake/output data recorded. Physical Exam General appearance: Alert, oriented, in no distress. HEENT: Atraumatic, normocephalic. Pupils equal and reactive to light. Extraocular movements intact.Moist mucous membrane. CVS: S1, S2 normal Respiration: Diminished breath sounds bilateral bases. Occasional rhonchi at the bases Abdomen: Soft, nontender, nondistended, bowel sounds normoactive Extremities: No pedal edema, no calf tenderness Neuro: No focal deficits Psychiatric: Normal mood and affect Lab/Radiology/Diagnostic Review: Recent Results (from the past 24 hour(s)) Blood culture Blood Collection Time: 01/09/20 2:12 PM Specimen: Blood Result Value Ref Range Report Preliminary Report: No growth to date. CBC with auto differential Collection Time: 01/09/20 2:13 PM Result Value Ref Range WBC 9.3 3.8 - 9.9 K/cumm Hgb 13.4 13.0 - 17.5 g/dL Hct 40.5 38.9 - 50.3 % Plt 172 150 - 400 K/cumm MPV 10.1 9.1 - 12.3 fL RBC 4.56 4.30 - 5.80 M/cumm MCV 88.8 81.3 - 96.4 fL MCH 29.4 27.1 - 33.3 pg MCHC 33.1 32.3 - 35.7 g/dL RDW CV 13.4 11.1 - 14.9 % RDW SD 43.9 35.7 - 48.1 fL NRBC abs 0.00 0.00 - 0.01 K/cumm Comprehensive metabolic panel Collection Time: 01/09/20 2:13 PM Result Value Ref Range Sodium 131 (L) 135 - 145 mmol/L Potassium, pl 3.6 3.3 - 4.9 mmol/L Chloride 88 (L) 97 - 110 mmol/L CO2 31 22 - 32 mmol/L Anion gap 12 2 - 15 mmol/L BUN 34 (H) 8 - 25 mg/dL Creatinine 1.28 0.80 - 1.30 mg/dL Glucose 140 70 - 199 mg/dL Calcium 9.7 8.5 - 10.3 mg/dL Bilirubin, total 0.7 0.1 - 1.2 mg/dL Protein, pl 8.1 6.5 - 8.5 g/dL Albumin 3.4 (L) 3.5 - 5.0 g/dL Alk phos 44 40 - 130 Units/L ALT 18 7 - 55 Units/L AST 53 (H) 10 - 50 Units/L Sepsis Lactate w/ Reflex Collection Time: 01/09/20 2:13 PM Result Value Ref Range Sepsis Lactate 2.0 0.7 - 2.0 mmol/L Blood culture Blood Collection Time: 01/09/20 2:13 PM Specimen: Blood Result Value Ref Range Report Preliminary Report: No growth to date. Differential, auto Collection Time: 01/09/20 2:13 PM Result Value Ref Range Neutrophil abs 8.4 (H) 1.7 - 6.5 K/cumm Imm gran abs 0.1 0.0 - 0.1 K/cumm Lymphocyte abs 0.3 (L) 0.8 - 3.3 K/cumm Monocyte abs 0.3 0.2 - 0.8 K/cumm Eosinophil abs 0.0 0.0 - 0.5 K/cumm Basophil abs 0.1 0.0 - 0.1 K/cumm Neutrophil pct 91.0 % Imm gran pct 1.3 % Lymphocyte pct 3.7 % Monocyte pct 3.2 % Eosinophil pct 0.2 % Basophil pct 0.6 % eGFR Collection Time: 01/09/20 2:13 PM Result Value Ref Range GFR 58 mL/min/1.73 m2 Urinalysis reflex to microscopic and culture Urine Collection Time: 01/09/20 2:42 PM Specimen: Urine Result Value Ref Range Color, ur Yellow Yellow Clarity, ur Clear Clear Specific gravity, ur 1.024 1.010 - 1.025 pH, urine 6.0 Protein, ur ql 2+ (A) Negative Glucose, ur ql Negative Negative Ketones, ur Negative Negative Bilirubin, ur Negative Negative Blood, ur 2+ (A) Negative Urobilinogen, ur <2.0 <2.0 mg/dL Nitrite, ur Negative Negative Leukocyte esterase, ur Negative Negative UA reflex comment Reflex to microscopic UA will be performed. Urinalysis, microscopic only Collection Time: 01/09/20 2:42 PM Result Value Ref Range WBC, ur 0-5 0 - 5 /HPF RBC, ur 0-2 0 - 2 /HPF Epithelial cells, squamous, ur 1-5 0 - 5 /HPF Bacteria, ur Trace (A) Mucous, ur Present (A) Hyaline casts, ur 1-5 0 - 10 /LPF Culture Reflex Comment Reflex conditions for urine culture (WBC >10) not met. Drugs of Abuse Screen, Urine without Confirmation Collection Time: 01/09/20 2:42 PM Result Value Ref Range Amphetamine, ur Not Detected CutOff 500ng/mL Barbiturates, ur Not Detected CutOff 200ng/mL Benzodiazepines, ur Detected (A) CutOff 100ng/mL Cannabinoids, ur Not Detected CutOff 50 ng/mL Cocaine, ur Not Detected CutOff 150ng/mL Fentanyl, Ur Not Detected Cutoff 1 ng/mL Methadone, ur Detected (A) CutOff 300ng/mL Opiates, ur Not Detected CutOff 300ng/mL Oxycodone, ur Not Detected CutOff 100ng/mL Phencyclidine, ur Not Detected CutOff 25 ng/mL Urine Creatinine 152 mg/dL COVID-19 Coronavirus RNA Nasopharyngeal Collection Time: 01/09/20 4:26 PM Specimen: Nasopharyngeal Result Value Ref Range COVID-19 Coronavirus RNA Not Detected Blood gas, arterial Collection Time: 01/09/20 7:02 PM Result Value Ref Range pH, Art 7.41 7.35 - 7.45 PCO2, Arterial 46 (H) 35 - 45 mmHg PO2, Arterial 39 (Critical) 83 - 108 mmHg HCO3 Art (Calculated) 29 20 - 30 mmol/L BE, art 4 mmol/L O2 Sat Art (Measured) 69 (L) 90 - 95 % CRP (acute phase) Collection Time: 01/09/20 7:53 PM Result Value Ref Range C-RP 426.8 (H) <=10.0 mg/L D-dimer, quantitative Collection Time: 01/09/20 7:53 PM Result Value Ref Range D-Dimer 2,455 (H) <=499 ng/mL FEU Sodium level Collection Time: 01/09/20 7:53 PM Result Value Ref Range Sodium 130 (L) 135 - 145 mmol/L TSH reflex to free T4 Collection Time: 01/09/20 7:53 PM Result Value Ref Range TSH 0.09 (L) 0.30 - 4.20 mcIUnit/mL Ammonia Collection Time: 01/09/20 7:53 PM Result Value Ref Range Ammonia 19 10 - 60 mcmol/L T4, free Collection Time: 01/09/20 7:53 PM Result Value Ref Range Free T4 1.58 0.90 - 1.70 ng/dL Basic metabolic panel Collection Time: 01/10/20 5:58 AM Result Value Ref Range Sodium 133 (L) 135 - 145 mmol/L Potassium, pl 3.1 (L) 3.3 - 4.9 mmol/L Chloride 93 (L) 97 - 110 mmol/L CO2 27 22 - 32 mmol/L Anion gap 14 2 - 15 mmol/L BUN 38 (H) 8 - 25 mg/dL Creatinine 0.98 0.80 - 1.30 mg/dL Glucose 145 70 - 199 mg/dL Calcium 9.0 8.5 - 10.3 mg/dL eGFR Collection Time: 01/10/20 5:58 AM Result Value Ref Range GFR 81 mL/min/1.73 m2 ASSESSMENT/PLAN: 1. Sepsis: Likely secondary to pneumonia. Legionella antigen positive. COVID-19 negative. Streptococcal antigen negative. Procalcitonin pending. Blood culture negative to date. Continue IV antibiotics. 2. Community-acquired pneumonia: Secondary to Legionella. Continue azithromycin. Blood culture negative to date. States that he helps his mother in her garden at times. 3. Acute hypoxemic respiratory failure: Likely secondary to pneumonia. COVID-[address] PE protocol obtain due to elevated D-dimer, was negative for any pulmonary embolus. Continue supplemental O2. Wean off as tolerated. 4. Acute COPD exacerbation: Continue Symbicort, DuoNeb, antibiotics. 5. Elevated D-dimer: CT scan PE protocol and venous Doppler negative. 6. Hyponatremia: Improving. 7. Hypokalemia: Replacing. 8. Altered mental status: ammonia not elevated. Urine drug screen positive for benzodiazepine and methadone. 9. Diarrhea: Stool culture pending. 10. Hypothyroidism: TSH decreased, decrease levothyroxine, repeat free T4, TSH in 4-6 weeks. 11. Cirrhosis of the liver without ascites: Per history history of chronic hepatitis-C. Outpatient follow-up with GI for variceal surveillance, AFP. 12. Chronic opioid dependence: Verified his methadone dose from the pharmacy. Resume it. MDM: Moderate Time spent: 25 minutes Principal Problem: Sepsis (CMS/HCC) Active Problems: Pneumonia COPD without exacerbation (CMS/HCC) Hyponatremia Diarrhea Altered mental status Cirrhosis of liver without ascites (CMS/HCC) Voice recognition software [employer] was used dictate and transcribe this document. Sales Order Clerk variances may occur. Despite proofreading, typographical errors may occur. Abisai Alejandre MD [facility] - Adult Hospitalist Service documented in this encounter H&P Notes * Beth Kaba MD - 01/09/2020 5:55 PM CDT History and Physical CHIEF COMPLAINT Shortness of breath HPI: 64yo male with history of cirrhosis and COPD. He is poor historian and slow to respond to questions. He reports that he lives with his mother. Family called 911 earlier today for unclear reasons. Most history obtained from ED reports. He has had shortness of breath and diarrhea for a few days. However, patient reports diarrhea today and only one episode. He denies shortness of breath or cough. Denies abdominal pain, nausea, vomiting. Denies any fall or use of assistive device. He thinks he feels weak because he did not take methadone 160mg today. Besides taking methadone, he does not remember the name of his other medications. He had a fever of 101.4 and was hypoxic to 88% in the ED. Past Medical History: Diagnosis Date ??? Depression ??? Emphysema of lung (CMS/HCC) ??? Infectious viral hepatitis ??? Kidney stone ??? Melena Past Surgical History: Procedure Laterality Date ??? COLONOSCOPY 2008 (Not in a hospital admission) Allergies Allergen Reactions ??? Narcan [Naloxone] Other (See comments) Patient indicating he cannot have narcan no matter what (methodone prescription) Current Facility-Administered Medications Medication Dose Route Frequency Provider Last Rate Last Dose ??? acetaminophen (TYLENOL) tablet 650 mg 650 mg oral Q4H PRN Humble Chester MD ??? azithromycin (ZITHROMAX) 500 mg/250 mL in sodium chloride 0.9% (premix) 500 mg 500 mg intravenous Q24H BEBE Humble Chester MD ??? budesonide-formoteroL (SYMBICORT) 160-4.5 mcg/actuation inhaler 2 puff 2 puff inhalation BID (RT) Beth Kaba MD ??? cefTRIAXone (ROCEPHIN) 2,000 mg/20 mL in sterile water (premix) 2,000 mg 2,000 mg intravenous Q24H BEBE Beth Kaba MD ??? ipratropium-albuteroL (DUO-NEB) 0.5-2.5 mg/3 mL nebulizer solution 3 mL 3 mL nebulization Q4H PRN (RT) Beth Kaba MD ??? ondansetron ODT (ZOFRAN-ODT) disintegrating tablet 4 mg 4 mg oral Q6H PRN Humble Chester MD Or ??? ondansetron (ZOFRAN) injection 4 mg 4 mg intravenous Q6H PRN Humble Chester MD Current Outpatient Medications: unverified Medication Sig Dispense Refill ??? albuterol HFA (PROVENTIL HFA,VENTOLIN HFA) 90 mcg/actuation inhaler Inhale. ??? ALPRAZolam (XANAX) 1 mg tablet 3 ??? baclofen (LIORESAL) 10 mg tablet Take 1 tablet (10 mg total) by mouth 3 (three) times a day for15 days 45 tablet 0 ??? BREO ELLIPTA 200-25 mcg/dose diskus inhaler ??? clonazePAM (KlonoPIN) 0.5 mg tablet Take 0.5 mg by mouth 2 (two) times a day. ??? ferrous sulfate 325 mg (65 mg of elemental iron) tablet Take 65 mg of elemental iron by mouth daily with breakfast. ??? ibuprofen (ADVIL,MOTRIN) 800 mg tablet ??? levothyroxine (SYNTHROID, LEVOTHROID) 100 mcg tablet ??? methadone (DOLOPHINE) 10 mg tablet Take 140 mg by mouth, ??? mupirocin (BACTROBAN) 2 % ointment Apply topically daily Apply with each dressing change 22 g 0 ??? omeprazole (PriLOSEC) 20 mg capsule Take 20 mg by mouth daily. ??? pediatric multivitamin-iron tablet,chewable Take by mouth. ??? raNITIdine (ZANTAC) 300 mg tablet ??? sertraline (ZOLOFT) 50 mg tablet Take 50 mg by mouth daily. ??? tamsulosin (FLOMAX) 0.4 mg capsule,extended release 24hr Take 0.8 mg by mouth. ??? traZODone (DESYREL) 50 mg tablet Take 50 mg by mouth nightly. Social History Tobacco Use ??? Smoking status: Former Smoker ??? Smokeless tobacco: Current User ??? Tobacco comment: e cig Substance Use Topics ??? Alcohol use: Not Currently Family history: patient is unsure Review of Systems: as noted above. All other systems reviewed are negative OBJECTIVE Vitals: Arrival Vitals [01/09/20 1358] Temp 38 ??C (100.4 ??F) Pulse 96 Resp 25 BP 120/74 SpO2 96 % Temp src Temporal Heart Rate Source Patient Position BP Location FiO2 (%) 24hr Min/Max: Temp Min: 36.9 ??C (98.5 ??F) Max: 38.6 ??C (101.4 ??F) Pulse Min: 77 Max: 104 BP Min: 104/63 Max: 127/88 Resp Min: 14 Max: 34 SpO2 Min: 88 % Max: 97 % Most Recent : Vitals: 01/09/20 1700 BP: 112/75 Pulse: 77 Resp: 19 Temp: 36.9 ??C (98.5 ??F) SpO2: 92% No intake or output data in the 24 hours ending 01/09/20 1756 Physical exam: General: Oriented to person, place, and time. Slow to respond, drowsy Eyes: no scleral icterus, extraocular motion is intact, pupils are equal Neck: supple, no gross carotid bruits appreciated Pharynx: No gross oral lesion, tongue midline, mucosa moist Lungs: clear to auscultation except bibasilar rales, no wheezes Heart: normal rate, normal rhythm, normal s1 and s2, no murmur noted Abd: present bowel sounds, Non Tender, Non distended Extremities: No gross edema, strength exam is 4/5 and symmetric Neuro: CN 2-12 is grossly intact, has no focal weakness Musculoskeletal: no gross joint erythema, edema, tenderness Psychiatric: flat affect Lab/Radiology/Diagnostic Review: Recent Results (from the past 24 hour(s)) CBC with auto differential Collection Time: 01/09/20 2:13 PM Result Value Ref Range WBC 9.3 3.8 - 9.9 K/cumm Hgb 13.4 13.0 - 17.5 g/dL Hct 40.5 38.9 - 50.3 % Plt 172 150 - 400 K/cumm MPV 10.1 9.1 - 12.3 fL RBC 4.56 4.30 - 5.80 M/cumm MCV 88.8 81.3 - 96.4 fL MCH 29.4 27.1 - 33.3 pg MCHC 33.1 32.3 - 35.7 g/dL RDW CV 13.4 11.1 - 14.9 % RDW SD 43.9 35.7 - 48.1 fL NRBC abs 0.00 0.00 - 0.01 K/cumm Comprehensive metabolic panel Collection Time: 01/09/20 2:13 PM Result Value Ref Range Sodium 131 (L) 135 - 145 mmol/L Potassium, pl 3.6 3.3 - 4.9 mmol/L Chloride 88 (L) 97 - 110 mmol/L CO2 31 22 - 32 mmol/L Anion gap 12 2 - 15 mmol/L BUN 34 (H) 8 - 25 mg/dL Creatinine 1.28 0.80 - 1.30 mg/dL Glucose 140 70 - 199 mg/dL Calcium 9.7 8.5 - 10.3 mg/dL Bilirubin, total 0.7 0.1 - 1.2 mg/dL Protein, pl 8.1 6.5 - 8.5 g/dL Albumin 3.4 (L) 3.5 - 5.0 g/dL Alk phos 44 40 - 130 Units/L ALT 18 7 - 55 Units/L AST 53 (H) 10 - 50 Units/L Sepsis Lactate w/ Reflex Collection Time: 01/09/20 2:13 PM Result Value Ref Range Sepsis Lactate 2.0 0.7 - 2.0 mmol/L Differential, auto Collection Time: 01/09/20 2:13 PM Result Value Ref Range Neutrophil abs 8.4 (H) 1.7 - 6.5 K/cumm Imm gran abs 0.1 0.0 - 0.1 K/cumm Lymphocyte abs 0.3 (L) 0.8 - 3.3 K/cumm Monocyte abs 0.3 0.2 - 0.8 K/cumm Eosinophil abs 0.0 0.0 - 0.5 K/cumm Basophil abs 0.1 0.0 - 0.1 K/cumm Neutrophil pct 91.0 % Imm gran pct 1.3 % Lymphocyte pct 3.7 % Monocyte pct 3.2 % Eosinophil pct 0.2 % Basophil pct 0.6 % eGFR Collection Time: 01/09/20 2:13 PM Result Value Ref Range GFR 58 mL/min/1.73 m2 Urinalysis reflex to microscopic and culture Urine Collection Time: 01/09/20 2:42 PM Specimen: Urine Result Value Ref Range Color, ur Yellow Yellow Clarity, ur Clear Clear Specific gravity, ur 1.024 1.010 - 1.025 pH, urine 6.0 Protein, ur ql 2+ (A) Negative Glucose, ur ql Negative Negative Ketones, ur Negative Negative Bilirubin, ur Negative Negative Blood, ur 2+ (A) Negative Urobilinogen, ur <2.0 <2.0 mg/dL Nitrite, ur Negative Negative Leukocyte esterase, ur Negative Negative UA reflex comment Reflex to microscopic UA will be performed. Urinalysis, microscopic only Collection Time: 01/09/20 2:42 PM Result Value Ref Range WBC, ur 0-5 0 - 5 /HPF RBC, ur 0-2 0 - 2 /HPF Epithelial cells, squamous, ur 1-5 0 - 5 /HPF Bacteria, ur Trace (A) Mucous, ur Present (A) Hyaline casts, ur 1-5 0 - 10 /LPF Culture Reflex Comment Reflex conditions for urine culture (WBC >10) not met. EKG: ordered and pending Xr Chest 1 Vw Portable Result Date: 01/09/2020 Narrative: EXAMINATION: XR CHEST 1 VIEW HISTORY: cough. Shortness of breath for days FINDINGS: Single view submitted with comparison 10/08/2017. There is been interval development of right mid and lower lung airspace consolidation. There is no pneumothorax. The heart size is within normal limits. Moderate hiatal hernia is noted. Impression: 1. Interval development of right middle and lower lung airspace consolidation, suspicious for pneumonia. Recommend radiographic follow-up to resolution. Electronically signed by: Felix Valiente M.D. Us Liver Result Date: 12/22/2019 Narrative: EXAMINATION: US LIVER ORDERING HEALTHCARE PROVIDER: PHAM HERRERA HISTORY: Chronic Hep C.COMPARISON: Liver ultrasound 10/28/2017 TECHNIQUE: Grayscale, color Doppler and spectral Doppler sonographic images of the right upper quadrant abdominal contents were reviewed. FINDINGS: LIVER: Coarsened hepatic echotexture which can be seen with chronic liver disease, with mildly increased echogenicity. This compromises evaluation for subtle masses although no distinct mass is seen. The hepaticsurface shows mild nodularity. The main portal vein is patent with hepatopedal flow. GALLBLADDER: The gallbladder is normally distended without gallstones or pericholecystic fluid. The gallbladder wall measures 2.4 mm thickness. BILE DUCTS: The common bile duct measures 4.8 mm in diameter. PANCREAS: Obscured by intervening bowel gas. RIGHT KIDNEY: Survey images of the right kidney demonstrate no hydronephrosis. OTHER: No other acute findings. Impression: 1. Cirrhotic appearance of the liver. 2. No evidence of acute cholecystitis. Electronically signed by: Grover Davis M.D. A/P Sepsis due to pneumonia, likely gram positive organism. Had temp of 101.4, RR-32 and right mid to lower lung infiltrate on cxr. Received fluid bolus. Pending blood culture, mycoplasma ab, legionella and strep urine ag. covid test was also ordered; pending crp, sed rate, and procalcitonin. On day 1 of iv rocephin 2gm daily and azithromycin 500mg daily Acute hypoxic respiratory failure. 88% on room air. Currently on 2Lnc and will wean as tolerated. Continuous pulse ox COPD without acute exacerbation. Symbicort bid, duoneb prn. Hyponatremia. Repeat sodium pending and if it remains low, will start iv fluid. Altered mentation. Obtain abg, urine drug screen, tsh, and ammonia level. Cirrhosis without ascites. Per history, due to chronic hep c. Outpatient follow up with GI for variceal surveillance, AFP. Ammonia pending. Diarrhea. Yet to be determined if this was the case. Monitor output and obtain stool studies as ordered Chronic opioid dependence. His methadone use cannot be verified on [place] [employer] ANALY[employer] review since only klonopin prescription was listed. Discussed with nurse to call his [facility] Complete med rec once verified Sc lovenox for vte prophylaxis Full code Beth Kaba MD Date of Service: 01/09/2020 documented in this encounter Nursing Notes * Apoorva Adamson, RN - 01/17/2020 2:31 PM CDT Patient was taken to private automobile by [facility]. No personal items left in room. documented in this encounter ED Notes * Humble Chester MD - 01/09/2020 2:05 PM CDT Chief Complaint Patient presents with ??? Shortness of Breath 2:10 PM 01/09/2020 GT Lanza is a 64 y.o. male former smoker with a PMHx of emphysema of lung, infectious viral hepatitis, and depression, presenting to the ED via EMS with a c/o SOB and diarrhea that started two days ago. Pt is also experiencing fever today (100.4 ??F). No alleviating or exacerbating factors. Denies cough, CP, nausea, or emesis. Also denies known exposure to COVID-19. No other complaints at this time. Past Medical History: Diagnosis Date ??? Depression ??? Emphysema of lung (CMS/HCC) ??? Infectious viral hepatitis ??? Kidney stone ??? Melena Past Surgical History: Procedure Laterality Date ??? COLONOSCOPY 2008 HOME MEDICATIONS : albuterol HFA (PROVENTIL HFA,VENTOLIN HFA) 90 mcg/actuation inhaler ALPRAZolam (XANAX) 1 mg tablet baclofen (LIORESAL) 10 mg tablet BREO ELLIPTA 200-25 mcg/dose diskus inhaler clonazePAM (KlonoPIN) 0.5 mg tablet ferrous sulfate 325 mg (65 mg of elemental iron) tablet ibuprofen (ADVIL,MOTRIN) 800 mg tablet levothyroxine (SYNTHROID, LEVOTHROID) 100 mcg tablet methadone (DOLOPHINE) 10 mg tablet mupirocin (BACTROBAN) 2 % ointment omeprazole (PriLOSEC) 20 mg capsule pediatric multivitamin-iron tablet,chewable raNITIdine (ZANTAC) 300 mg tablet sertraline (ZOLOFT) 50 mg tablet tamsulosin (FLOMAX) 0.4 mg capsule,extended release 24hr traZODone (DESYREL) 50 mg tablet Allergies Allergen Reactions ??? Narcan [Naloxone] Other (See comments) Patient indicating he cannot have narcan no matter what (methodone prescription) Review of Systems Constitutional: Positive for fever. Negative for chills and fatigue. HENT: Negative for ear pain, rhinorrhea, sneezing and sore throat. Eyes: Negative for pain and itching. Respiratory: Positive for shortness of breath. Negative for cough and wheezing. Cardiovascular: Negative for chest pain and palpitations. Gastrointestinal: Positive for diarrhea. Negative for abdominal pain, constipation, nausea and vomiting. Genitourinary: Negative for dysuria and frequency. Musculoskeletal: Negative for arthralgias, back pain, myalgias and neck pain. Skin: Negative for rash and wound. Neurological: Negative for dizziness, syncope, weakness, light-headedness and headaches. All other systems reviewed and are negative. Physical Exam Vitals signs and nursing note reviewed. Constitutional: Appearance: Normal appearance. He is ill-appearing. HENT: Head: Normocephalic and atraumatic. Nose: Nose normal. Mouth/Throat: Mouth: Mucous membranes are moist. Eyes: Extraocular Movements: Extraocular movements intact. Pupils: Pupils are equal, round, and reactive to light. Neck: Musculoskeletal: Normal range of motion and neck supple. Cardiovascular: Rate and Rhythm: Normal rate and regular rhythm. Pulses: Normal pulses. Heart sounds: Normal heart sounds. Pulmonary: Effort: Pulmonary effort is normal. Breath sounds: Decreased breath sounds present. Abdominal: General: Abdomen is flat. Palpations: Abdomen is soft. Musculoskeletal: Normal range of motion. Skin: General: Skin is warm. Neurological: General: No focal deficit present. Mental Status: He is alert and oriented to person, place, and time. Mental status is at baseline. Vitals: 01/09/20 1530 01/09/20 1535 01/09/20 1540 01/09/20 1549 BP: 119/80 Pulse: 97 101 96 Resp: 30 26 26 Temp: 37 ??C (98.6 ??F) TempSrc: Temporal SpO2: 92% 93% 92% Labs Reviewed URINALYSIS AND REFLEX TO MICROSCOPIC AND CULTURE - Abnormal Result Value Color, ur Yellow Clarity, ur Clear Specific gravity, ur 1.024 pH, urine 6.0 Protein, ur ql 2+ (*) Glucose, ur ql Negative Ketones, ur Negative Bilirubin, ur Negative Blood, ur 2+ (*) Urobilinogen, ur <2.0 Nitrite, ur Negative Leukocyte esterase, ur Negative UA reflex comment Reflex to microscopic UA will be performed. Narrative: Urine pH is affected by diet, medications, systemic acid-base disturbances, and renal tubular function. pH may affect urinary stone formation. For example, urine pH below 6.0 may help reduce the tendency for calcium phosphate stones and pH greater than 6.0 may reduce the tendency for uric acid stone formation. Source: [facility] [employer].Last revised 06-04-2017 COMPREHENSIVE METABOLIC PANEL - Abnormal Sodium 131 (*) Potassium, pl 3.6 Chloride 88 (*) CO2 31 Anion gap 12 BUN 34 (*) Creatinine 1.28 Glucose 140 Calcium 9.7 Bilirubin, total 0.7 Protein, pl 8.1 Albumin 3.4 (*) Alk phos 44 ALT 18 AST 53 (*) DIFFERENTIAL AUTO - Abnormal Neutrophil abs 8.4 (*) Imm gran abs 0.1 Lymphocyte abs 0.3 (*) Monocyte abs 0.3 Eosinophil abs 0.0 Basophil abs 0.1 Neutrophil pct 91.0 Imm gran pct 1.3 Lymphocyte pct 3.7 Monocyte pct 3.2 Eosinophil pct 0.2 Basophil pct 0.6 URINALYSIS, MICROSCOPIC ONLY - Abnormal WBC, ur 0-5 RBC, ur 0-2 Epithelial cells, squamous, ur 1-5 Bacteria, ur Trace (*) Mucous, ur Present (*) Hyaline casts, ur 1-5 Culture Reflex Comment Value: Reflex conditions for urine culture (WBC >10) not met. BLOOD CULTURE BLOOD CULTURE COVID-19 CORONAVIRUS RNA CBC WITH AUTO DIFFERENTIAL WBC 9.3 Hgb 13.4 Hct 40.5 Plt 172 MPV 10.1 RBC 4.56 MCV 88.8 MCH 29.4 MCHC 33.1 RDW CV 13.4 RDW SD 43.9 NRBC abs 0.00 SEPSIS LACTATE WITH REFLEX Sepsis Lactate 2.0 EGFR GFR 58 XR Chest 1 Vw Portable Final Result 1. Interval development of right middle and lower lung airspace consolidation, suspicious for pneumonia. Recommend radiographic follow-up to resolution. Electronically signed by: Felix Valiente M.D. Procedures MDM ED Course as of Jan 08 1630 Time: 01/08 1521 Comment: Pt is waiting to have chest xray. By: Palma Victoria Time: 01/08 1626 Comment: Spoke with Dr. Kaba, hospitalist, who accepts the Pt for admission. By: Palma Victoria IMPRESSION: 1. Pneumonia ATTESTATIONS: This note is prepared by Palma Victoria acting as a scribe for Humble Chester MD. I electronically signed this note at 4:30 PM on 01/09/2020. I, Humble Chester MD, have personally performed the services described in the documentation , reviewed the documentation, as recorded by the scribe in my presence, and it accurately and completely records my words and actions. Humble Chester MD 01/09/201629 * Abigail Armas, RN - 01/09/2020 1:57 PM CDT Pt to the ED via [facility] with complaints of SOB and diarhhea for the last couple days, pt was supposed to get his methadone today but states he was too weak to go. * Christina Shelley RN - 01/09/2020 1:57 PM CDT Bed: ED09 Expected date: 01/09/20 Expected time: Means of arrival: Comments: [facility] Christina Shelley RN 01/09/20 1357 documented in this encounter Miscellaneous Notes * Provider Query - Patricio Vieira Jr., MD - 01/17/2020 2:31 PM CDT Please clarify if the diagnosis COVID-19 ___ Diagnosis confirmed _x_ Diagnosis ruled out ___ Other, specify below ___ Clinically unable to determine Clinical Indicators/Treatments: Patient presents to ED 01/10 with SOB and diarrhea. PMH of emphysema. T 101.4, Resp 32 and right midto lower lung infiltrate on CXR. Covid test ordered but pt denies known exposure to Covid-19. DX with pneumonia. Started on rocephin Lab cums: 01/08 covid test not detected. Findings + for Legionella pneumonia. PN 01/09 covid negative PN 01/13 covid rna 01/08 positive. DS - no mention of covid positive status. Provider Response: Error in lab value reporting, should have said legionella urine antigen positive, not COVID-19 Use of terms such as likely, suspected, possible, or probable (associated with a specific diagnosisthat is being evaluated, monitored, or treated as if it exists) are acceptable and can be coded in the inpatient setting when documented at the time of discharge. This documentation will become part of the patient???s medical record. Sincerely, Lamar Aceves [facility] Information Management * Plan of Care - Apoorva Adamson RN - 01/17/2020 2:05 PM CDT Goals: Clinical Goals for the Shift: pt to remain free of falls and injuires, pt to remain on room air, possible discahrge Summary: Patient is alert and oriented x4. Patient has been up ad negrita in room and has remained free of fallsand injuries. Patient has remained on room air this shift and was able to ambulate from room to [facility] station and back with out need for O2 therapy. Patient is being discharged home. Dischargepending. Problem: Health Behavior: Goal: Understanding of discharge needs will improve Outcome: Adequate for Discharge Problem: Lack of Knowledge: Goal: Ability to state ways to decrease the risk of falls will improve Outcome: Adequate for Discharge Problem: Safety: Goal: Will remain free from falls Outcome: Adequate for Discharge Goal: Will remain free from injury from falls Outcome: Adequate for Discharge Goal: Will remain free from falls and injury in home environment Outcome: Adequate for Discharge Problem: Activity: Goal: Mobility will improve Outcome: Adequate for Discharge Problem: Lack of Knowledge: Goal: Understanding of ways to prevent future skin breakdown will improve Outcome: Adequate for Discharge Goal: Ability to identify appropriate dietary choices will improve Outcome: Adequate for Discharge Problem: Nutritional: Goal: Dietary intake will improve Outcome: Adequate for Discharge Goal: Ability to maintain a balanced intake and output will improve Outcome: Adequate for Discharge Problem: Skin Integrity: Goal: Risk for impaired skin integrity will decrease Outcome: Adequate for Discharge Goal: Ability to demonstrate warm and dry skin will improve Outcome: Adequate for Discharge Goal: Circulation will improve to fullest extent possible Outcome: Adequate for Discharge * Plan of Care - Dinora Singleton RN - 01/17/2020 3:59 AM CDT Problem: Health Behavior: Goal: Understanding of discharge needs will improve Outcome: Progressing Problem: Lack of Knowledge: Goal: Ability to state ways to decrease the risk of falls will improve Outcome: Progressing Problem: Safety: Goal: Will remain free from falls Outcome: Progressing Goal: Will remain free from injury from falls Outcome: Progressing Goal: Will remain free from falls and injury in home environment Outcome: Progressing Problem: Activity: Goal: Mobility will improve Outcome: Progressing Problem: Lack of Knowledge: Goal: Understanding of ways to prevent future skin breakdown will improve Outcome: Progressing Goal: Ability to identify appropriate dietary choices will improve Outcome: Progressing Problem: Nutritional: Goal: Dietary intake will improve Outcome: Progressing Goal: Ability to maintain a balanced intake and output will improve Outcome: Progressing Problem: Skin Integrity: Goal: Risk for impaired skin integrity will decrease Outcome: Progressing Goal: Ability to demonstrate warm and dry skin will improve Outcome: Progressing Goal: Circulation will improve to fullest extent possible Outcome: Progressing Goals: Clinical Goals for the Shift: Free from falls, stable vitals and labs, improve respiratory status Summary: Pt is alert and oriented. Vital signs stable. Meds given as ordered and scheduled. Pt weaned down to 1 liter. O2 did drop some during the night and pt went back up to 3L while sleeping. Calllight is within reach. Will continue to monitor. * Plan of Care - Apoorva Adamson RN - 01/16/2020 4:48 PM CDT Goals: Clinical Goals for the Shift: pt to remain free of falls and injuries, pt to have stable VS, pt to medicated as ordered Summary: Patient is alert and oriented x4. Patient is up ad negrita in room and has remained free of falls and injuries this shift. Patient remains of O2 at this time related to desaturation. Patient has bene medicated as ordered and required no PRN medications. Patient was living in private residence with family prior to admission and plans to return at discharge. No discharge orders at this time. Problem: Health Behavior: Goal: Understanding of discharge needs will improve Outcome: Not Progressing Problem: Lack of Knowledge: Goal: Ability to state ways to decrease the risk of falls will improve Outcome: Not Progressing Problem: Safety: Goal: Will remain free from falls Outcome: Not Progressing Goal: Will remain free from injury from falls Outcome: Not Progressing Goal: Will remain free from falls and injury in home environment Outcome: Not Progressing Problem: Activity: Goal: Mobility will improve Outcome: Not Progressing Problem: Lack of Knowledge: Goal: Understanding of ways to prevent future skin breakdown will improve Outcome: Not Progressing Goal: Ability to identify appropriate dietary choices will improve Outcome: Not Progressing Problem: Nutritional: Goal: Dietary intake will improve Outcome: Not Progressing Goal: Ability to maintain a balanced intake and output will improve Outcome: Not Progressing Problem: Skin Integrity: Goal: Risk for impaired skin integrity will decrease Outcome: Not Progressing Goal: Ability to demonstrate warm and dry skin will improve Outcome: Not Progressing Goal: Circulation will improve to fullest extent possible Outcome: Not Progressing * Plan of Care - Kimberly Horne RN - 01/16/2020 1:37 AM CDT Goals: Clinical Goals for the Shift: Pt will remain hemodynamically stable with pain controlled and VSSS Summary: Pt remains hemodynamically stable. VSS. Pt states that pain is controlled. * Plan of Care - Edgardo Panda RN - 01/15/2020 3:46 PM CDT Goals: Clinical Goals for the Shift: VSS, No falls Summary: Vital signs have been stable. No falls on shift. Patient has been up ad negrita. No complaintsof pain or SOB. Decreased O2 per MD to 1.5 L currently 93% SpO2. Problem: Health Behavior: Goal: Understanding of discharge needs will improve Outcome: Progressing Problem: Lack of Knowledge: Goal: Ability to state ways to decrease the risk of falls will improve Outcome: Progressing Problem: Safety: Goal: Will remain free from falls Outcome: Progressing Goal: Will remain free from injury from falls Outcome: Progressing Goal: Will remain free from falls and injury in home environment Outcome: Progressing Problem: Activity: Goal: Mobility will improve Outcome: Progressing Problem: Lack of Knowledge: Goal: Understanding of ways to prevent future skin breakdown will improve Outcome: Progressing Goal: Ability to identify appropriate dietary choices will improve Outcome: Progressing Problem: Nutritional: Goal: Dietary intake will improve Outcome: Progressing Goal: Ability to maintain a balanced intake and output will improve Outcome: Progressing Problem: Skin Integrity: Goal: Risk for impaired skin integrity will decrease Outcome: Progressing Goal: Ability to demonstrate warm and dry skin will improve Outcome: Progressing Goal: Circulation will improve to fullest extent possible Outcome: Progressing * Plan of Care - Kimberly Horne RN - 01/15/2020 4:30 AM CDT Goals: Clinical Goals for the Shift: Pt will remain hemodynamically stable with pain controlled and VSSS Summary: Pt remains hemodynamically stable. VSS. Pt states that pain is controlled. * Plan of Care - Edgardo Panda RN - 01/14/2020 4:05 PM CDT Goals: Clinical Goals for the Shift: VSS, No falls Summary: Vital signs have been stable. No complaints of pain or discomfort this shift. No falls on shift. Patient has daughter visiting with him today. He is anxious to go home. Patient weaned to 1.5L O2 per NC so far. Will attempt RA before end of shift. Problem: Health Behavior: Goal: Understanding of discharge needs will improve Outcome: Progressing Problem: Lack of Knowledge: Goal: Ability to state ways to decrease the risk of falls will improve Outcome: Progressing Problem: Safety: Goal: Will remain free from falls Outcome: Progressing Goal: Will remain free from injury from falls Outcome: Progressing Goal: Will remain free from falls and injury in home environment Outcome: Progressing Problem: Activity: Goal: Mobility will improve Outcome: Progressing Problem: Lack of Knowledge: Goal: Understanding of ways to prevent future skin breakdown will improve Outcome: Progressing Goal: Ability to identify appropriate dietary choices will improve Outcome: Progressing Problem: Nutritional: Goal: Dietary intake will improve Outcome: Progressing Goal: Ability to maintain a balanced intake and output will improve Outcome: Progressing Problem: Skin Integrity: Goal: Risk for impaired skin integrity will decrease Outcome: Progressing Goal: Ability to demonstrate warm and dry skin will improve Outcome: Progressing Goal: Circulation will improve to fullest extent possible Outcome: Progressing * Plan of Care - Dinora Singleton RN - 01/14/2020 4:36 AM CDT Problem: Health Behavior: Goal: Understanding of discharge needs will improve Outcome: Progressing Problem: Lack of Knowledge: Goal: Ability to state ways to decrease the risk of falls will improve Outcome: Progressing Problem: Safety: Goal: Will remain free from falls Outcome: Progressing Goal: Will remain free from injury from falls Outcome: Progressing Goal: Will remain free from falls and injury in home environment Outcome: Progressing Problem: Activity: Goal: Mobility will improve Outcome: Progressing Problem: Lack of Knowledge: Goal: Understanding of ways to prevent future skin breakdown will improve Outcome: Progressing Goal: Ability to identify appropriate dietary choices will improve Outcome: Progressing Problem: Nutritional: Goal: Dietary intake will improve Outcome: Progressing Goal: Ability to maintain a balanced intake and output will improve Outcome: Progressing Problem: Skin Integrity: Goal: Risk for impaired skin integrity will decrease Outcome: Progressing Goal: Ability to demonstrate warm and dry skin will improve Outcome: Progressing Goal: Circulation will improve to fullest extent possible Outcome: Progressing Goals: Clinical Goals for the Shift: Free from falls, stable vitals and labs, improve respiratory status, wean O2 Summary: Pt is alert and oriented. No complaints of pain. Vital signs stable. O2 weaned down to 3 liters. Call light within reach. Will continue to monitor. * Plan of Care - Anna Frazier RN - 01/13/2020 12:47 PM CDT Problem: Health Behavior: Goal: Understanding of discharge needs will improve Outcome: Progressing Problem: Lack of Knowledge: Goal: Ability to state ways to decrease the risk of falls will improve Outcome: Progressing Problem: Safety: Goal: Will remain free from falls Outcome: Progressing Goal: Will remain free from injury from falls Outcome: Progressing Goal: Will remain free from falls and injury in home environment Outcome: Progressing Problem: Activity: Goal: Mobility will improve Outcome: Progressing Problem: Lack of Knowledge: Goal: Understanding of ways to prevent future skin breakdown will improve Outcome: Progressing Goal: Ability to identify appropriate dietary choices will improve Outcome: Progressing Problem: Nutritional: Goal: Dietary intake will improve Outcome: Progressing Goal: Ability to maintain a balanced intake and output will improve Outcome: Progressing Problem: Skin Integrity: Goal: Risk for impaired skin integrity will decrease Outcome: Progressing Goal: Ability to demonstrate warm and dry skin will improve Outcome: Progressing Goal: Circulation will improve to fullest extent possible Outcome: Progressing Goals: Clinical Goals for the Shift: VS/labs stable, free from injury, wean from O2 Summary: Patient is A & O x 4 and cooperative to care. The patient was weaned from 6L O2 to 4L O2 and I will attempt to wean further. The patient is resting in bed and reports no concerns at thistime. I will continue to monitor and treat. * Plan of Care - Dinora Singleton RN - 01/13/2020 4:41 AM CDT Problem: Health Behavior: Goal: Understanding of discharge needs will improve Outcome: Progressing Problem: Lack of Knowledge: Goal: Ability to state ways to decrease the risk of falls will improve Outcome: Progressing Problem: Safety: Goal: Will remain free from falls Outcome: Progressing Goal: Will remain free from injury from falls Outcome: Progressing Goal: Will remain free from falls and injury in home environment Outcome: Progressing Problem: Activity: Goal: Mobility will improve Outcome: Progressing Problem: Lack of Knowledge: Goal: Understanding of ways to prevent future skin breakdown will improve Outcome: Progressing Goal: Ability to identify appropriate dietary choices will improve Outcome: Progressing Problem: Nutritional: Goal: Dietary intake will improve Outcome: Progressing Goal: Ability to maintain a balanced intake and output will improve Outcome: Progressing Problem: Skin Integrity: Goal: Risk for impaired skin integrity will decrease Outcome: Progressing Goal: Ability to demonstrate warm and dry skin will improve Outcome: Progressing Goal: Circulation will improve to fullest extent possible Outcome: Progressing Goals: Clinical Goals for the Shift: Free from falls, stable vitals and labs, improve respiratory status Summary: Pt is alert and oriented. No complaints of pain. Vital signs stable. Pt SOB on exertion. Pt incontinent this shift. Nasal cannula on at 6 liters. O2 drops when pt is up. Call light within reach. Will continue to monitor. * Plan of Care - Nadir Thomas RN - 01/12/2020 5:54 PM CDT Problem: Health Behavior: Goal: Understanding of discharge needs will improve Outcome: Progressing Problem: Lack of Knowledge: Goal: Ability to state ways to decrease the risk of falls will improve Outcome: Progressing Problem: Safety: Goal: Will remain free from falls Outcome: Progressing Goal: Will remain free from injury from falls Outcome: Progressing Goal: Will remain free from falls and injury in home environment Outcome: Progressing Problem: Activity: Goal: Mobility will improve Outcome: Progressing Problem: Lack of Knowledge: Goal: Understanding of ways to prevent future skin breakdown will improve Outcome: Progressing Goal: Ability to identify appropriate dietary choices will improve Outcome: Progressing Problem: Nutritional: Goal: Dietary intake will improve Outcome: Progressing Goal: Ability to maintain a balanced intake and output will improve Outcome: Progressing Problem: Skin Integrity: Goal: Risk for impaired skin integrity will decrease Outcome: Progressing Goal: Ability to demonstrate warm and dry skin will improve Outcome: Progressing Goal: Circulation will improve to fullest extent possible Outcome: Progressing Goals: Clinical Goals for the Shift: Free from falls, stable vitals and labs, improve respiratatory status Summary: Patient rested in room free of pain. Alert and oriented x4 on 6L high flow. MD wants to begin to wean to less O2 slowly. No complaints from patient, vss, will continue to monitor and treat as ordered. * Plan of Care - Dinora Singleton RN - 01/12/2020 3:27 AM CDT Problem: Health Behavior: Goal: Understanding of discharge needs will improve Outcome: Progressing Problem: Lack of Knowledge: Goal: Ability to state ways to decrease the risk of falls will improve Outcome: Progressing Problem: Safety: Goal: Will remain free from falls Outcome: Progressing Goal: Will remain free from injury from falls Outcome: Progressing Goal: Will remain free from falls and injury in home environment Outcome: Progressing Problem: Activity: Goal: Mobility will improve Outcome: Progressing Problem: Lack of Knowledge: Goal: Understanding of ways to prevent future skin breakdown will improve Outcome: Progressing Goal: Ability to identify appropriate dietary choices will improve Outcome: Progressing Problem: Nutritional: Goal: Dietary intake will improve Outcome: Progressing Goal: Ability to maintain a balanced intake and output will improve Outcome: Progressing Problem: Skin Integrity: Goal: Risk for impaired skin integrity will decrease Outcome: Progressing Goal: Ability to demonstrate warm and dry skin will improve Outcome: Progressing Goal: Circulation will improve to fullest extent possible Outcome: Progressing Problem: Skin Integrity: Goal: Ability to demonstrate warm and dry skin will improve Outcome: Progressing Goals: Clinical Goals for the Shift: Free from falls, stable vitals and labs, improve respiratatory status Summary: Pt is alert and oriented. Up independently. Vital signs stable. No complaints of pain. Pt on 5 liters O2. Call light within reach. Will continue to monitor. * Plan of Care - Isabel Pimentel RN - 01/11/2020 4:29 PM CDT Goals: Clinical Goals for the Shift: Pt to have decreased respiratory symptoms. No falls or injury Summary: Pt is resting in bed at this time. Pt is on O2 via NC. Pt has had IV abx as ordered. Will continue to monitor and medicate as ordered. Will notify MD of any acute status changes. Problem: Health Behavior: Goal: Understanding of discharge needs will improve Outcome: Progressing Problem: Lack of Knowledge: Goal: Ability to state ways to decrease the risk of falls will improve Outcome: Progressing Problem: Safety: Goal: Will remain free from falls Outcome: Progressing Goal: Will remain free from injury from falls Outcome: Progressing Goal: Will remain free from falls and injury in home environment Outcome: Progressing Problem: Activity: Goal: Mobility will improve Outcome: Progressing Problem: Lack of Knowledge: Goal: Understanding of ways to prevent future skin breakdown will improve Outcome: Progressing Goal: Ability to identify appropriate dietary choices will improve Outcome: Progressing Problem: Nutritional: Goal: Dietary intake will improve Outcome: Progressing Goal: Ability to maintain a balanced intake and output will improve Outcome: Progressing Problem: Skin Integrity: Goal: Risk for impaired skin integrity will decrease Outcome: Progressing Goal: Ability to demonstrate warm and dry skin will improve Outcome: Progressing Goal: Circulation will improve to fullest extent possible Outcome: Progressing * Plan of Dinora Llamas RN - 01/11/2020 3:18 AM CDT Problem: Health Behavior: Goal: Understanding of discharge needs will improve Outcome: Progressing Problem: Lack of Knowledge: Goal: Ability to state ways to decrease the risk of falls will improve Outcome: Progressing Problem: Safety: Goal: Will remain free from falls Outcome: Progressing Goal: Will remain free from injury from falls Outcome: Progressing Goal: Will remain free from falls and injury in home environment Outcome: Progressing Problem: Activity: Goal: Mobility will improve Outcome: Progressing Problem: Lack of Knowledge: Goal: Understanding of ways to prevent future skin breakdown will improve Outcome: Progressing Goal: Ability to identify appropriate dietary choices will improve Outcome: Progressing Problem: Nutritional: Goal: Dietary intake will improve Outcome: Progressing Goal: Ability to maintain a balanced intake and output will improve Outcome: Progressing Problem: Skin Integrity: Goal: Risk for impaired skin integrity will decrease Outcome: Progressing Goal: Ability to demonstrate warm and dry skin will improve Outcome: Progressing Goal: Circulation will improve to fullest extent possible Outcome: Progressing Goals: Clinical Goals for the Shift: Free from falls, stable vitals and labs, improve respiratory status Summary: Pt is alert and oriented. He is up independent. Vital signs stable. No complaints of pain.Free from falls. Call light within reach. Will continue to monitor. * Plan of Care - Isabel Pimentel RN - 01/10/2020 6:31 PM CDT Goals: Clinical Goals for the Shift: Pt to have decreased respiratory symptoms. No falls or injury Summary: Pt has been A&Ox4. SOB upon exertion. Pt is resting comfortably at this time. Will continue to monitor and medicate as ordered. Will notify MD of any acute status changes. Problem: Health Behavior: Goal: Understanding of discharge needs will improve Outcome: Progressing Problem: Lack of Knowledge: Goal: Ability to state ways to decrease the risk of falls will improve Outcome: Progressing Problem: Safety: Goal: Will remain free from falls Outcome: Progressing Goal: Will remain free from injury from falls Outcome: Progressing Goal: Will remain free from falls and injury in home environment Outcome: Progressing Problem: Activity: Goal: Mobility will improve Outcome: Progressing Problem: Lack of Knowledge: Goal: Understanding of ways to prevent future skin breakdown will improve Outcome: Progressing Goal: Ability to identify appropriate dietary choices will improve Outcome: Progressing Problem: Nutritional: Goal: Dietary intake will improve Outcome: Progressing Goal: Ability to maintain a balanced intake and output will improve Outcome: Progressing Problem: Skin Integrity: Goal: Risk for impaired skin integrity will decrease Outcome: Progressing Goal: Ability to demonstrate warm and dry skin will improve Outcome: Progressing Goal: Circulation will improve to fullest extent possible Outcome: Progressing * Plan of Care - Geovanni Duncan RN - 01/10/2020 4:26 AM CDT Goals: Summary: More awake at this time. O2 sat maintained upper 90's on 6L. No respiratory distress noted. No falls or injuries occurred. documented in this encounter Plan of Treatment Not on file documented as of this encounter Procedures Procedure Name Priority Date/Time Associated Diagnosis Comments POCT GLUCOSE DEVICE Routine 01/16/2020 8 :10 AM CDT EGFR Routine 01/16/2020 5:13 AM CDT CBC WITH AUTO DIFFERENTIAL Routine 01/16/2020 5:13 AM CDT MANUAL DIFFERENTIAL Routine 01/16/2020 5 :13 AM CDT BASIC METABOLIC PANEL Routine 01/16/2020 5:13 AM CDT POCT GLUCOSE DEVICE Routine 01/15/2020 7 :20 AM CDT EGFR Routine 01/15/2020 5:06 AM CDT CBC WITH AUTO DIFFERENTIAL Routine 01/15/2020 5:06 AM CDT MANUAL DIFFERENTIAL Routine 01/15/2020 5 :06 AM CDT BASIC METABOLIC PANEL Routine 01/15/2020 5:06 AM CDT EGFR Routine 01/14/2020 4:45 AM CDT CBC WITH AUTO DIFFERENTIAL Routine 01/14/2020 4:45 AM CDT MANUAL DIFFERENTIAL Routine 01/14/2020 4 :45 AM CDT BASIC METABOLIC PANEL Routine 01/14/2020 4:45 AM CDT XR CHEST 1 VIEW IP Routine 01/13/2020 3:33 PM CDT EGFR Routine 01/13/2020 5:10 AM CDT CBC WITH AUTO DIFFERENTIAL Routine 01/13/2020 5:10 AM CDT MANUAL DIFFERENTIAL Routine 01/13/2020 5 :10 AM CDT BASIC METABOLIC PANEL Routine 01/13/2020 5:10 AM CDT EGFR Routine 01/12/2020 4:50 AM CDT CBC WITH AUTO DIFFERENTIAL Routine 01/12/2020 4:50 AM CDT MANUAL DIFFERENTIAL Routine 01/12/2020 4 :50 AM CDT BASIC METABOLIC PANEL Routine 01/12/2020 4:50 AM CDT EGFR Routine 01/11/2020 5:26 AM CDT DIFFERENTIAL AUTO Routine 01/11/2020 5:2 6 AM CDT CBC WITH AUTO DIFFERENTIAL Routine 01/11/2020 5:26 AM CDT BASIC METABOLIC PANEL Routine 01/11/2020 5:26 AM CDT ERYTHROCYTE SEDIMENTATION RATE STAT 01/11/2020 5:23 AM CDT CTA CHEST W CONTRAST IP Routine 01/10/2020 10:13 AM CDT US VEIN DUPLEX LOWER EXTREMITY BILATERAL COMPLETE IP Routine 01/10/2020 10:09 AM CDT EGFR Routine 01/10/2020 5:58 AM CDT DIFFERENTIAL AUTO Routine 01/10/2020 5:5 8 AM CDT CBC WITH AUTO DIFFERENTIAL Routine 01/10/2020 5:58 AM CDT BASIC METABOLIC PANEL Routine 01/10/2020 5:58 AM CDT STREP PNEUMONIAE AG, URINE Routine 01/10/2020 4:00 AM CDT LEGIONELLA ANTIGEN, URINE Routine 01/10/2020 4:00 AM CDT ECG 12-LEAD Routine 01/09/2020 10:13 PM CDT BLOOD MISC TO [facility] Routine 01/09/2020 7: 53 PM CDT PROCALCITONIN Routine 01/09/2020 7:53 PM CDT THYROID FUNCTION CASCADE STAT 01/09/2020 7:53 PM CDT D-DIMER, QUANTITATIVE Routine 01/09/2020 7:53 PM CDT CRP (ACUTE PHASE) Routine 01/09/2020 7:5 3 PM CDT T4, FREE STAT 01/09/2020 7:53 PM CDT SODIUM LEVEL STAT 01/09/2020 7:53 PM CDT AMMONIA STAT 01/09/2020 7:53 PM CDT BLOOD GAS, ARTERIAL STAT 01/09/2020 7 :02 PM CDT COVID-19 CORONAVIRUS RNA Routine 01/09/2020 4:26 PM CDT XR CHEST 1 VIEW ED 01/09/2020 3:16 PM CDT URINALYSIS AND REFLEX TO MICROSCOPIC AND CULTURE STAT 01/09/2020 2:42 PM CDT DRUGS OF ABUSE SCREEN, URINE WITHOUT CONFIRMATION STAT 01/09/2020 2:42 PM CDT URINALYSIS, MICROSCOPIC ONLY STAT 01/09/2020 2:42 PM CDT SEPSIS LACTATE WITH REFLEX STAT 01/09/2020 2:13 PM CDT EGFR STAT 01/09/2020 2:13 PM CDT DIFFERENTIAL AUTO STAT 01/09/2020 2:1 3 PM CDT CBC WITH AUTO DIFFERENTIAL STAT 01/09/2020 2:13 PM CDT BLOOD CULTURE STAT 01/09/2020 2:13 PM CDT COMPREHENSIVE METABOLIC PANEL STAT 01/09/2020 2:13 PM CDT BLOOD CULTURE STAT 01/09/2020 2:12 PM CDT documented in this encounter Results * POCT glucose (01/16/2020 8:10 AM CDT) [facility] Glucose, POC 86 71 - 98 mg/dL [facility] ([place]) Blood specimen (specimen) 01/16/2020 8:10 AM CDT 01/16/2020 8:10 AM CDT us Patricio Vieira Jr., MD LAB POCT ORDERABLES - DEVICE Final Result [facility] ([place]) 1 [facility] [place] [address] * (ABNORMAL) Manual Differential (01/16/2020 5:13 AM CDT) Differential Manual [facility] ([place]) Cells Counted 100 [facility] ([place]) Neutrophil abs 6.2 1.7 - 6.5 K/cumm [facility] ([place]) Imm gran abs 0.3(H) 0.0 - 0.1 K/cumm [facility] ([place]) Lymphocyte abs 1.3 0.8 - 3.3 K/cumm [facility] ([place]) Monocyte abs 0.4 0.2 - 0.8 K/cumm [facility] ([place]) Neutrophil pct 71.0 % [facility] ([place]) Comment: Interpretive Data Percent cell count reference ranges are not reported, since discordance with absolute values may lead to misinterpretation of CBC data. Current Interpretive Data was last revised on 2017. Lymphocyte pct 13.0 % [facility] ([place]) Comment: Interpretive Data Percent cell count reference ranges are not reported, since discordance with absolute values may lead to misinterpretation of CBC data. Current Interpretive Data was last revised on 2017. Monocyte pct 5.0 % [facility] ([place]) Comment: Interpretive Data Percent cell count reference ranges are not reported, since discordance with absolute values may lead to misinterpretation of CBC data. Current Interpretive Data was last revised on 2017. Band Neutrophil pct 4.0 0.0 - 5.0 % [facility] ([place]) Metamyelocyte pct 4.0(H) 0.0 - 0.0 % [facility] ([place]) Variant lymph pct 3.0(H) 0.0 - 0.0 % [facility] ([place]) Blood specimen (specimen) 01/16/2020 5:13 AM CDT 01/16/2020 6:02 AM CDT us Abisai Alejandre MD LAB BLOOD ORDERABLES Final Resul t [facility] ([place]) 1 [facility] [place] [address] * eGFR (01/16/2020 5:13 AM CDT) eGFR 100 mL/min/1.7 3 m2 [facility] ([place]) Comment: Interpretive Data Reference Interval Normal ?>/= 90 mL/min/1.73m2 Mildly decreased* ? 60 - 89 mL/min/1.73m2 Mildly to moderately decreased ?45 - 59 mL/min/1.73m2 Moderately to severely decreased ??30 - 44 mL/min/1.73m2 Severely decreased ?15 - 29 mL/min/1.73m2 Kidney Failure ?< 15 ??mL/min/1.73m2 *Relative to young adult level If -Citizen Of [place] multiply value by 1.16. Estimated glomerular filtration [...] was last reviewed 2015. Blood specimen (specimen) 01/16/2020 5:13 AM CDT 01/16/2020 6:50 AM CDT us Abisai Alejandre MD LAB BLOOD ORDERABLES Final Resul t [facility] ([place]) 1 [facility] [place] [address] * (ABNORMAL) Basic metabolic panel (01/16/2020 5:13 AM CDT) Sodium 138 135 - 145 mmol/L [facility] ([place] Potassium, pl 3.4 3.3 - 4.9 mmol/L [facility] ([place]) Chloride 101 97 - 110 mmol/L [facility] ([place]) CO2 26 22 - 32 mmol/L [facility] ([place]) Anion gap 11 2 - 15 mmol/L [facility] ([place]) BUN 12 8 - 25 mg/dL [facility]) Creatinine 0.69(L) 0.80 - 1.30 mg/dL [facility] ([place]) Glucose 67(L) 70 - 199 mg/dL [facility] ([place]) [...] interpretive data was last revised 2017. Calcium 8.7 8.5 - 10.3 mg/dL [facility] ([place]) Blood specimen (specimen) 01/16/2020 5:13 AM CDT 01/16/2020 6:50 AM CDT us Abisai Alejandre MD LAB BLOOD ORDERABLES Final Resul t [facility] ([place]) 1 [facility] Department [place] [address] * (ABNORMAL) CBC with auto differential (01/16/2020 5:13 AM CDT) WBC 8.2 3.8 - 9.9 K/cumm [facility] ([place]) Hgb 11.9(L) 13.0 - 17.5 g/dL [facility] ([place]) Hct 36.0(L) 38.9 - 50.3 % [facility] ([place]) Plt 278 150 - 400 K/cumm [facility] ([place]) MPV 10.1 9.1 - 12.3 fL [facility] ([place]) RBC 4.03(L) 4.30 - 5.80 M/cumm [facility] ([place]) MCV 89.3 81.3 - 96.4 fL [facility] ([place]) MCH 29.5 27.1 - 33.3 pg [facility] ([place]) MCHC 33.1 32.3 - 35.7 g/dL [facility] ([place]) RDW CV 14.5 11.1 - 14.9 % [facility] ([place]) RDW SD 47.1 35.7 - 48.1 fL [facility] ([place]) NRBC abs 0.00 0.00 - 0.01 K/cumm [facility] ([place]) Blood specimen (specimen) 01/16/2020 5:13 AM CDT 01/16/2020 6:02 AM CDT us Abisai Alejandre MD LAB BLOOD ORDERABLES Final Resul t [facility] ([place]) 1 [facility] Department of [employer] [place] [address] * (ABNORMAL) POCT glucose (01/15/2020 7:20 AM CDT) Glucose, POC 111(H) 71 - 98 mg/dL [facility] ([place]) Blood specimen (specimen) 01/15/2020 7:20 AM CDT 01/15/2020 7:20 AM CDT us Patricio Vieira Jr., MD LAB POCT ORDERABLES - DEVICE Final Result Performing Organization Address City/[facility]/ZIP Co de Phone Number [facility] ([place]) 1 [facility] [place] [address] * (ABNORMAL) Manual Differential (01/15/2020 5:06 AM CDT) Differential Manual [facility] ([place]) Cells Counted 100 [facility] ([place]) Neutrophil abs 4.6 1.7 - 6.5 K/cumm [facility] ([place]) Imm gran abs 0.6(H) 0.0 - 0.1 K/cumm [facility] ([place]) Lymphocyte abs 2.2 0.8 - 3.3 K/cumm [facility] ([place]) Monocyte abs 0.8 0.2 - 0.8 K/cumm [facility] ([place]) Eosinophil abs 0.1 0.0 - 0.5 K/cumm [facility] ([place]) Basophil abs 0.1 0.0 - 0.1 K/cumm [facility] ([place]) Neutrophil pct 51.0 % [facility] ([place]) Comment: Interpretive Data Percent cell count reference ranges are not reported, since discordance with absolute values may lead to misinterpretation of CBC data. Current Interpretive Data was last revised on 2017. Lymphocyte pct 23.0 % [facility] ([place]) Comment: Interpretive Data Percent cell count reference ranges are not reported, since discordance with absolute values may lead to misinterpretation of CBC data. Current Interpretive Data was last revised on 2017. Monocyte pct 9.0 % [facility] ([place]) Comment: Interpretive Data Percent cell count reference ranges are not reported, since discordance with absolute values may lead to misinterpretation of CBC data. Current Interpretive Data was last revised on 2017. Eosinophil pct 1.0 % [facility] ([place] Comment: Interpretive Data Percent cell count reference ranges are not reported, since discordance with absolute values may lead to misinterpretation of CBC data. Current Interpretive Data was last revised on 2017. Basophil pct 1.0 % [facility] ([place]) Comment: Interpretive Data Percent cell count reference ranges are not reported, since discordance with absolute values may lead to misinterpretation of CBC data. Current Interpretive Data was last revised on 2017. Band Neutrophil pct 4.0 0.0 - 5.0 % [facility] ([place]) Metamyelocyte pct 1.0(H) 0.0 - 0.0 % [facility] ([place]) Myelocyte pct 5.0(H) 0.0 - 0.0 % [facility] ([place]) Promyelocyte pct 1.0(H) 0.0 - 0.0 % [facility] ([place]) Variant lymph pct 4.0(H) 0.0 - 0.0 % [facility] ([place]) RBC morphology Consistent with RBC Indicies [facility] ([place]) Platelet estimate Adequate [facility] ([place]) Blood specimen (specimen) 01/15/2020 5:06 AM CDT 01/15/2020 6:09 AM CDT us Abisai Alejandre MD LAB BLOOD ORDERABLES Final Resul t [facility] ([place]) 1 [facility] Department [place] [address] * eGFR (01/15/2020 5:06 AM CDT) eGFR 94 mL/min/1.7 3 m2 [facility] ([place]) Comment: Interpretive Data Reference Interval Normal ?>/= 90 mL/min/1.73m2 Mildly decreased* ? 60 - 89 mL/min/1.73m2 Mildly to moderately decreased ?45 - 59 mL/min/1.73m2 Moderately to severely decreased ??30 - 44 mL/min/1.73m2 Severely decreased ?15 - 29 mL/min/1.73m2 Kidney Failure ?< 15 ??mL/min/1.73m2 *Relative to young adult level If -Citizen Of [place] multiply value by 1.16. Estimated glomerular filtration [...] was last reviewed 2015. Blood specimen (specimen) 01/15/2020 5:06 AM CDT 01/15/2020 6:09 AM CDT us Abisai Alejandre MD LAB BLOOD ORDERABLES Final Resul t [facility] ([place]) 1 [facility] Department [place] [address] * (ABNORMAL) Basic metabolic panel (01/15/2020 5:06 AM CDT) Sodium 139 135 - 145 mmol/L [facility] ([place]) Potassium, pl 3.2(L) 3.3 - 4.9 mmol/L [facility] ([place]) Chloride 100 97 - 110 mmol/L [facility] ([place]) CO2 28 22 - 32 mmol/L [facility] ([place]) Anion gap 12 2 - 15 mmol/L [facility] ([place]) BUN 14 8 - 25 mg/dL [facility] ([place]) Creatinine 0.80 0.80 - 1.30 mg/dL [facility] ([place]) Glucose 59(L) 70 - 199 mg/dL [facility] ([place]) [...] 2017. Calcium 9.0 8.5 - 10.3 mg/dL [facility] ([place]) Blood specimen (specimen) 01/15/2020 5:06 AM CDT 01/15/2020 6:09 AM CDT us Abisai Alejandre MD LAB BLOOD ORDERABLES Final Resul t [facility] ([place]) 1 [facility] Department [place] [address] * (ABNORMAL) CBC with auto differential (01/15/2020 5:06 AM CDT) WBC 8.3 3.8 - 9.9 K/cumm [facility] ([place]) Hgb 13.4 13.0 - 17.5 g/dL [facility] ([place]) Hct 41.2 38.9 - 50.3 % [facility] ([place]) Plt 271 150 - 400 K/cumm [facility] ([place]) MPV 10.7 9.1 - 12.3 fL [facility] ([place]) RBC 4.52 4.30 - 5.80 M/cumm [facility] ([place]) MCV 91.2 81.3 - 96.4 fL [facility] ([place]) MCH 29.6 27.1 - 33.3 pg [facility] ([place]) MCHC 32.5 32.3 - 35.7 g/dL [facility] ([place]) RDW CV 14.6 11.1 - 14.9 % [facility] ([place]) RDW SD 49.1(H) 35.7 - 48.1 fL [facility] ([place]) NRBC abs 0.00 0.00 - 0.01 K/cumm [facility] ([place]) Blood specimen (specimen) 01/15/2020 5:06 AM CDT 01/15/2020 6:09 AM CDT us Abisai Alejandre MD LAB BLOOD ORDERABLES Final Resul t [facility] ([place]) 1 [facility] Department [place] [address] * (ABNORMAL) Manual Differential (01/14/2020 4:45 AM CDT) Differential Manual [facility] ([place]) Cells Counted 100 [facility] ([place]) Neutrophil abs 4.7 1.7 - 6.5 K/cumm [facility] ([place]) Imm gran abs 0.6(H) 0.0 - 0.1 K/cumm [facility] ([place]) Lymphocyte abs 1.2 0.8 - 3.3 K/cumm [facility] ([place]) Monocyte abs 0.5 0.2 - 0.8 K/cumm [facility] ([place]) Eosinophil abs 0.3 0.0 - 0.5 K/cumm [facility] ([place]) Basophil abs 0.1 0.0 - 0.1 K/cumm [facility] ([place]) Neutrophil pct 60.0 % [facility] ([place]) Comment: Interpretive [...] was last revised on 2017. Monocyte pct 7.0 % [facility] ([place]) Comment: Interpretive Data Percent cell count reference ranges are not reported, since discordance with absolute values may lead to misinterpretation of CBC data. Current Interpretive Data was last revised on 2017. Eosinophil pct 4.0 % [facility] ([place]) Comment: Interpretive [...] Interpretive Data was last revised on 2017. Band Neutrophil pct 4.0 0.0 - 5.0 % [facility] ([place]) Metamyelocyte pct 1.0(H) 0.0 - 0.0 % [facility] ([place]) Myelocyte pct 7.0(H) 0.0 - 0.0 % [facility] ([place]) RBC morphology Consistent with RBC Indicies [facility] ([place]) Platelet estimate Adequate [facility] ([place]) Blood specimen (specimen) 01/14/2020 4:45 AM CDT 01/14/2020 5:43 AM CDT us Abisai Alejandre MD LAB BLOOD ORDERABLES Final Resul t [facility] ([place]) 1 [facility] [place] [address] * eGFR (01/14/2020 4:45 AM CDT) eGFR 97 mL/min/1.7 3 m2 [facility] ([place]) Comment: Interpretive Data Reference Interval Normal ?>/= 90 mL/min/1.73m2 Mildly decreased* ? 60 - 89 mL/min/1.73m2 Mildly to moderately decreased ?45 - 59 mL/min/1.73m2 Moderately to severely decreased ??30 - 44 mL/min/1.73m2 Severely decreased ?15 - 29 mL/min/1.73m2 Kidney Failure ?< 15 ??mL/min/1.73m2 *Relative to young adult level If -Citizen [place] multiply value by 1.16. Estimated glomerular filtration [...] was last reviewed 2015. Blood specimen (specimen) 01/14/2020 4:45 AM CDT 01/14/2020 5:38 AM CDT us Abisai Alejandre MD LAB BLOOD ORDERABLES Final Resul t [facility] ([place]) 1 [facility] [place] [address] * (ABNORMAL) Basic metabolic panel (01/14/2020 4:45 AM CDT) Sodium 136 135 - 145 mmol/L [facility] ([place]) Potassium, pl 3.2(L) 3.3 - 4.9 mmol/L [facility] ([place]) Chloride 101 97 - 110 mmol/L [facility] ([place]) CO2 26 22 - 32 mmol/L [facility] Anion gap 9 2 - 15 mmol/L [facility] ([place]) BUN 17 8 - 25 mg/dL [facility] ([place]) Creatinine 0.74(L) 0.80 - 1.30 mg/dL [facility] ([place]) Glucose 71 70 - 199 mg/dL [facility] ([place]) Comment: Interpretive Data Fasting glucose [...] interpretive data was last revised 2017. Calcium 8.6 8.5 - 10.3 mg/dL [facility] ([place]) Blood specimen (specimen) 01/14/2020 4:45 AM CDT 01/14/2020 5:38 AM CDT us Abisai Alejandre MD LAB BLOOD ORDERABLES Final Resul t [facility] ([place]) 1 [facility] [place] [address] * (ABNORMAL) CBC with auto differential (01/14/2020 4:45 AM CDT) WBC 7.3 3.8 - 9.9 K/cumm [facility] ([place]) Hgb 11.9(L) 13.0 - 17.5 g/dL [facility] ([place]) Hct 36.2(L) 38.9 - 50.3 % [facility] ([place]) Plt 194 150 - 400 K/cumm [facility] ([place]) MPV 10.7 9.1 - 12.3 fL [facility] ([place]) RBC 4.00(L) 4.30 - 5.80 M/cumm [facility] ([place]) MCV 90.5 81.3 - 96.4 fL [facility] ([place]) MCH 29.8 27.1 - 33.3 pg [facility] ([place]) MCHC 32.9 32.3 - 35.7 g/dL [facility] ([place]) RDW CV 14.4 11.1 - 14.9 % [facility] ([place]) RDW SD 47.8 35.7 - 48.1 fL [facility] ([place]) NRBC abs 0.00 0.00 - 0.01 K/cumm [facility] ([place]) Blood specimen (specimen) 01/14/2020 4:45 AM CDT 01/14/2020 5:43 AM CDT us Abisai Alejandre MD LAB BLOOD ORDERABLES Final Resul t [facility] ([place]) 1 [facility] [place] [address] * XR CHEST 1 VIEW PORTABLE (01/13/2020 3:33 PM CDT) Anatomical Region Laterality Modality Body, Chest N/A Computed Radiogr aphy 01/13/2020 4:06 PM CDT Impressions 01/13/2020 4:11 PM CDT 1. ??No significant change in right lower lobe pneumonia. ??Short interval imaging follow-up to resolution is recommended. 2. ??Trace right pleural effusion. 3. ??Pulmonary emphysema. 4. ??Moderate hiatal hernia. Electronically signed by: Silvestre Morales M.D. Narrative 01/13/2020 4:11 PM CDT EXAMINATION: XR CHEST 1 VIEW ORDERING HEALTHCARE PROVIDER: STEVEN REINOSO HISTORY: Acute respiratory failure. ??Pneumonia. TECHNIQUE: Frontal chest radiograph. COMPARISON: Chest radiograph from 01/09/[address] from 01/10/2020. FINDINGS: LUNGS/PLEURA: There is patchy airspace opacity projecting over the right mid to lower lung, unchanged. ??There is a trace right pleural effusion. ??There is no evidence of airspace consolidation in the left lung. ??There is pulmonary emphysema and biapical pleural/scarring. HEART/MEDIASTINUM: The heart size is normal. ??The mediastinal and hilar contours are stable. ??There is a moderate hiatal hernia. HARDWARE/LINES/TUBES: None. BONES: There are no acute or aggressive appearing osseous abnormalities. Procedure Note Silvestre Morales MD - 01/13/2020 EXAMINATION: XR CHEST 1 VIEW ORDERING HEALTHCARE PROVIDER: STEVEN REINOSO HISTORY: Acute respiratory failure. Pneumonia. TECHNIQUE: Frontal chest radiograph. COMPARISON: Chest radiograph from 01/09/[address] from 01/10/2020. FINDINGS: LUNGS/PLEURA: There is patchy airspace opacity projecting over the right mid to lower lung, unchanged. There is a trace right pleural effusion. There is no evidence of airspace consolidation in the left lung. There is pulmonary emphysema and biapical pleural/scarring. HEART/MEDIASTINUM: The heart size is normal. The mediastinal and hilar contours are stable. There is a moderate hiatal hernia. HARDWARE/LINES/TUBES: None. BONES: There are no acute or aggressive appearing osseous abnormalities. IMPRESSION: 1. No significant change in right lower lobe pneumonia. Short interval imaging follow-up to resolution is recommended. 2. Trace right pleural effusion. 3. Pulmonary emphysema. 4. Moderate hiatal hernia. Electronically signed by: Silvestre Morales M.D. us Steven Reinoso MD IMG XR PROCEDURES Final Resul t * (ABNORMAL) Manual Differential (01/13/2020 5:10 AM CDT) Differential Manual [facility] ([place]) Cells Counted 100 [facility] ([place]) Neutrophil abs 5.1 1.7 - 6.5 K/cumm [facility] ([place]) Imm gran abs 0.4(H) 0.0 - 0.1 K/cumm [facility] ([place]) Lymphocyte abs 1.0 0.8 - 3.3 K/cumm [facility] ([place]) Monocyte abs 0.3 0.2 - 0.8 K/cumm [facility] ([place]) Neutrophil pct 69.0 % [facility] ([place]) Comment: Interpretive Data Percent cell count reference ranges are not reported, since discordance with absolute values may lead to misinterpretation of CBC data. Current Interpretive Data was last revised on 2017. Lymphocyte pct 12.0 % [facility] ([place]) Comment: Interpretive Data Percent cell count reference ranges are not reported, since discordance with absolute values may lead to misinterpretation of CBC data. Current Interpretive Data was last revised on 2017. Monocyte pct 4.0 % [facility] ([place]) Comment: Interpretive Data Percent cell count reference ranges are not reported, since discordance with absolute values may lead to misinterpretation of CBC data. Current Interpretive Data was last revised on 2017. Band Neutrophil pct 6.0(H) 0.0 - 5.0 % [facility] ([place]) Metamyelocyte pct 4.0(H) 0.0 - 0.0 % [facility] ([place]) Myelocyte pct 2.0(H) 0.0 - 0.0 % [facility] ([place]) Variant lymph pct 3.0(H) 0.0 - 0.0 % [facility] ([place]) Blood specimen (specimen) 01/13/2020 5:10 AM CDT 01/13/2020 5:21 AM CDT us Abisai Alejandre MD LAB BLOOD ORDERABLES Final Resul t [facility] ([place]) 1 [facility] [place] [address] * eGFR (01/13/2020 5:10 AM CDT) eGFR 92 mL/min/1.7 3 m2 [facility] ([place]) Comment: Interpretive Data Reference Interval Normal ?>/= 90 mL/min/1.73m2 Mildly decreased* ? 60 - 89 mL/min/1.73m2 Mildly to moderately decreased ?45 - 59 mL/min/1.73m2 Moderately to severely decreased ??30 - 44 mL/min/1.73m2 Severely decreased ?15 - 29 mL/min/1.73m2 Kidney Failure ?< 15 ??mL/min/1.73m2 *Relative to young adult level If -Citizen Of [place] multiply value by 1.16. Estimated glomerular filtration [...] was last reviewed 2015. Blood specimen (specimen) 01/13/2020 5:10 AM CDT 01/13/2020 5:16 AM CDT Abisai Alejandre MD LAB BLOOD ORDERABLES Final Resul t [facility] ([place]) 1 [facility] [place] [address] * Basic metabolic panel (01/13/2020 5:10 AM CDT) Sodium 139 135 - 145 mmol/L [facility] ([place]) Potassium, pl 3.3 3.3 - 4.9 mmol/L [facility] ([place]) Chloride 101 97 - 110 mmol/L [facility] ([place]) CO2 29 22 - 32 mmol/L [facility] ([place]) Anion gap 9 2 - 15 mmol/L [facility] ([place]) BUN 21 8 - 25 mg/dL [facility] ([place]) Creatinine 0.84 0.80 - 1.30 mg/dL [facility] ([place]) Glucose 73 70 - 199 mg/dL [facility] ([place]) [...] interpretive data was last revised 2017. Calcium 8.9 8.5 - 10.3 mg/dL [facility] ([place]) Blood specimen (specimen) 01/13/2020 5:10 AM CDT 01/13/2020 5:16 AM CDT Abisai Alejandre MD LAB BLOOD ORDERABLES Final Resul t [facility] ([place]) 1 [facility] [employer] [place] [address] * (ABNORMAL) CBC with auto differential (01/13/2020 5:10 AM CDT) WBC 6.8 3.8 - 9.9 K/cumm [facility] ([place]) Hgb 12.0(L) 13.0 - 17.5 g/dL [facility] ([place]) Hct 36.6(L) 38.9 - 50.3 % [facility] ([place]) Plt 163 150 - 400 K/cumm [facility] ([place]) MPV 10.5 9.1 - 12.3 fL [facility] ([place]) RBC 4.03(L) 4.30 - 5.80 M/cumm [facility]) MCV 90.8 81.3 - 96.4 fL [facility] MCH 29.8 27.1 - 33.3 pg [facility] MCHC 32.8 32.3 - 35.7 g/dL [facility]) RDW CV 14.3 11.1 - 14.9 % [facility] RDW SD 48.0 35.7 - 48.1 fL [facility] NRBC abs 0.00 0.00 - 0.01 K/cumm [facility] ([place]) Blood specimen (specimen) 01/13/2020 5:10 AM CDT 01/13/2020 5:21 AM CDT Abisai Alejandre MD LAB BLOOD ORDERABLES Final Resul t [facility] ([place]) [address] [facility] [employer] [place] [address] * (ABNORMAL) Manual Differential (01/12/2020 4:50 AM CDT) Differential Manual [facility] ([place]) Cells Counted 100 [facility] ([place]) Neutrophil abs 6.6(H) 1.7 - 6.5 K/cumm [facility] ([place]) Imm gran abs 0.2(H) 0.0 - 0.1 K/cumm [facility] ([place]) Lymphocyte abs 0.5(L) 0.8 - 3.3 K/cumm [facility] ([place]) Monocyte abs 0.5 0.2 - 0.8 K/cumm [facility] ([place]) Neutrophil pct 83.0 % [facility] ([place]) Comment: Interpretive Data Percent cell count reference ranges are not reported, since discordance with absolute values may lead to misinterpretation of CBC data. Current Interpretive Data was last revised on 2017. Lymphocyte pct 7.0 % [facility] ([place]) Comment: Interpretive Data Percent cell count reference ranges are not reported, since discordance with absolute values may lead to misinterpretation of CBC data. Current Interpretive Data was last revised on 2017. Monocyte pct 6.0 % [facility] ([place]) Comment: Interpretive Data Percent cell count reference ranges are not reported, since discordance with absolute values may lead to misinterpretation of CBC data. Current Interpretive Data was last revised on 2017. Band Neutrophil pct 2.0 0.0 - 5.0 % [facility] ([place]) Myelocyte pct 2.0(H) 0.0 - 0.0 % [facility] ([place]) RBC morphology Consistent with RBC Indicies [facility] ([place]) Platelet estimate Adequate [facility] ([place]) Blood specimen (specimen) 01/12/2020 4:50 AM CDT 01/12/2020 5:33 AM CDT us Abisai Alejandre MD LAB BLOOD ORDERABLES Final Resul t [facility] ([place]) 1 [facility] [place] [address] * eGFR (01/12/2020 4:50 AM CDT) eGFR 90 mL/min/1.7 3 m2 [facility] ([place]) Comment: Interpretive Data Reference Interval Normal ?>/= 90 mL/min/1.73m2 Mildly decreased* ? 60 - 89 mL/min/1.73m2 Mildly to moderately decreased ?45 - 59 mL/min/1.73m2 Moderately to severely decreased ??30 - 44 mL/min/1.73m2 Severely decreased ?15 - 29 mL/min/1.73m2 Kidney Failure ?< 15 ??mL/min/1.73m2 *Relative to young adult level If -Citizen Of The [place] multiply value by 1.16. Estimated glomerular filtration [...] was last reviewed 2015. Blood specimen (specimen) 01/12/2020 4:50 AM CDT 01/12/2020 5:50 AM CDT us Abisai Alejandre MD LAB BLOOD ORDERABLES Final Resul t [facility] ([place]) 1 [facility] [place] [address] * (ABNORMAL) Basic metabolic panel (01/12/2020 4:50 AM CDT) Sodium 135 135 - 145 mmol/L [facility] ([place]) Potassium, pl 3.3 3.3 - 4.9 mmol/L [facility] ([place]) Chloride 95(L) 97 - 110 mmol/L [facility] ([place]) CO2 29 22 - 32 mmol/L [facility] ([place]) Anion gap 11 2 - 15 mmol/L [facility] ([place]) BUN 28(H) 8 - 25 mg/dL [facility] ([place]) Creatinine 0.88 0.80 - 1.30 mg/dL [facility] ([place]) Glucose 80 70 - 199 mg/dL [facility] ([place]) [...] interpretive data was last revised 2017. Calcium 9.4 8.5 - 10.3 mg/dL [facility] ([place]) Blood specimen (specimen) 01/12/2020 4:50 AM CDT 01/12/2020 5:15 AM CDT us Abisai Alejandre MD LAB BLOOD ORDERABLES Final Resul t [facility] ([place]) 1 [facility] [place] [address] * (ABNORMAL) CBC with auto differential (01/12/2020 4:50 AM CDT) WBC 7.7 3.8 - 9.9 K/cumm [facility] ([place]) Hgb 12.9(L) 13.0 - 17.5 g/dL [facility] ([place]) Hct 39.2 38.9 - 50.3 % [facility] ([place]) Plt 151 150 - 400 K/cumm [facility] ([place]) MPV 10.7 9.1 - 12.3 fL [facility] ([place]) RBC 4.34 4.30 - 5.80 M/cumm [facility] ([place]) MCV 90.3 81.3 - 96.4 fL [facility] ([place]) MCH 29.7 27.1 - 33.3 pg [facility] ([place]) MCHC 32.9 32.3 - 35.7 g/dL [facility] ([place]) RDW CV 13.9 11.1 - 14.9 % [facility] ([place]) RDW SD 46.8 35.7 - 48.1 fL [facility] ([place]) NRBC abs 0.00 0.00 - 0.01 K/cumm [facility] ([place]) Blood specimen (specimen) 01/12/2020 4:50 AM CDT 01/12/2020 5:15 AM CDT us Abisai Alejandre MD LAB BLOOD ORDERABLES Final Resul t [facility] ([place]) 1 [facility] [place] [address] * eGFR (01/11/2020 5:26 AM CDT) eGFR 95 mL/min/1.7 3 m2 [facility] ([place]) Comment: Interpretive Data Reference Interval Normal ?>/= 90 mL/min/1.73m2 Mildly decreased* ? 60 - 89 mL/min/1.73m2 Mildly to moderately decreased ?45 - 59 mL/min/1.73m2 Moderately to severely decreased ??30 - 44 mL/min/1.73m2 Severely decreased ?15 - 29 mL/min/1.73m2 Kidney Failure ?< 15 ??mL/min/1.73m2 *Relative to young adult level If -Citizen Of [place] multiply value by 1.16. Estimated glomerular filtration [...] was last reviewed 2015. Blood specimen (specimen) 01/11/2020 5:26 AM CDT 01/11/2020 5:48 AM CDT us Abisai Alejandre MD LAB BLOOD ORDERABLES Final Resul t [facility] ([place]) 1 [facility] [place] [address] * (ABNORMAL) Differential, auto (01/11/2020 5:26 AM CDT) Neutrophil abs 9.7(H) 1.7 - 6.5 K/cumm [facility] ([place]) Imm gran abs 0.2(H) 0.0 - 0.1 K/cumm [facility] ([place]) Lymphocyte abs 0.4(L) 0.8 - 3.3 K/cumm [facility] ([place]) Monocyte abs 0.4 0.2 - 0.8 K/cumm [facility] ([place]) Eosinophil abs 0.0 0.0 - 0.5 K/cumm [facility] ([place]) Basophil abs 0.0 0.0 - 0.1 K/cumm [facility] ([place]) Neutrophil pct 91.2 % [facility] ([place]) Comment: Interpretive Data Percent cell count reference ranges are not reported, since discordance with absolute values may lead to misinterpretation of CBC data. Current Interpretive Data was last revised on 2017. Imm gran pct 1.6 % [facility] ([place]) Comment: Interpretive Data Percent cell count reference ranges are not reported, since discordance with absolute values may lead to misinterpretation of CBC data. Current Interpretive Data was last revised on 2017. Lymphocyte pct 3.4 % [facility] ([place]) Comment: Interpretive Data Percent cell count reference ranges are not reported, since discordance with absolute values may lead to misinterpretation of CBC data. Current Interpretive Data was last revised on 2017. Monocyte pct 3.6 % [facility] ([place]) Comment: Interpretive Data Percent cell count reference ranges are not reported, since discordance with absolute values may lead to misinterpretation of CBC data. Current Interpretive Data was last revised on 2017. Eosinophil pct 0.0 % [facility] ([place]) Comment: Interpretive Data Percent cell count reference ranges are not reported, since discordance with absolute values may lead to misinterpretation of CBC data. Current Interpretive Data was last revised on 2017. Basophil pct 0.2 % [facility] ([place]) Comment: Interpretive Data Percent cell count reference ranges are not reported, since discordance with absolute values may lead to misinterpretation of CBC data. Current Interpretive Data was last revised on 2017. Blood specimen (specimen) 01/11/2020 5:26 AM CDT 01/11/2020 5:48 AM CDT Abisai Alejandre MD LAB BLOOD ORDERABLES Final Resul t [facility] ([place]) 1 [facility] [place] [address] * (ABNORMAL) Basic metabolic panel (01/11/2020 5:26 AM CDT) Sodium 132(L) 135 - 145 mmol/L [facility] ([place]) Potassium, pl 3.4 3.3 - 4.9 mmol/L [facility] ([place]) Chloride 95(L) 97 - 110 mmol/L [facility] ([place]) CO2 27 22 - 32 mmol/L [facility] ([place]) Anion gap 10 2 - 15 mmol/L [facility] ([place]) BUN 32(H) 8 - 25 mg/dL [facility] ([place]) Creatinine 0.77(L) 0.80 - 1.30 mg/dL [facility] ([place]) Glucose 116 70 - 199 mg/dL [facility] ([place]) [...] interpretive data was last revised 2017. Calcium 9.3 8.5 - 10.3 mg/dL [facility] ([place]) Blood specimen (specimen) 01/11/2020 5:26 AM CDT 01/11/2020 5:48 AM CDT us Abisai Alejandre MD LAB BLOOD ORDERABLES Final Resul t [facility] ([place]) 1 [facility] Department of Laboratories [place], [place] [id number] * (ABNORMAL) CBC with auto differential (01/11/2020 5:26 AM CDT) WBC 10.6(H) 3.8 - 9.9 K/cumm [facility] ([place]) Hgb 12.3(L) 13.0 - 17.5 g/dL [facility] ([place]) Hct 36.1(L) 38.9 - 50.3 % [facility] ([place]) Plt 152 150 - 400 K/cumm [facility] ([place]) MPV 11.3 9.1 - 12.3 fL [facility] ([place]) RBC 4.12(L) 4.30 - 5.80 M/cumm [facility] ([place]) MCV 87.6 81.3 - 96.4 fL [facility] ([place]) MCH 29.9 27.1 - 33.3 pg [facility] ([place]) MCHC 34.1 32.3 - 35.7 g/dL [facility] ([place]) RDW CV 13.6 11.1 - 14.9 % [facility] ([place]) RDW SD 43.8 35.7 - 48.1 fL [facility] ([place]) NRBC abs 0.00 0.00 - 0.01 K/cumm [facility] ([place]) Blood specimen (specimen) 01/11/2020 5:26 AM CDT 01/11/2020 5:48 AM CDT Abisai Alejandre MD LAB BLOOD ORDERABLES Final Resul t [facility] ([place]) 1 [facility] [employer] [place] [address] * (ABNORMAL) Erythrocyte sedimentation rate (01/11/2020 5:23 AM CDT) Erythrocyte sedimentation rate 54(H) 1 - 20 mm/hr [facility] ([place]) Comment:Testing performed by : [facility], [address] [place] [address], [place]., [address] Blood specimen (specimen) 01/11/2020 5:23 AM CDT 01/11/2020 2:21 PM CDT Abisai Alejandre MD LAB BLOOD ORDERABLES Final Resul t [facility] ([place]) 1 [facility] [employer] [place] [address] * CTA Chest W Contrast (01/10/2020 10:13 AM CDT) Anatomical Region Laterality Modality Chest N/A Computed Tomogra phy 01/10/2020 12:4 1 PM CDT Impressions 01/10/2020 12:59 PM CDT 1. No evidence of pulmonary embolism. ?? 2. Right lower lobe pneumonia and small right pleural effusion. 3. Mediastinal lymphadenopathy, which is non-specific and may be reactive. ??A 2-3 month follow-up CT of the chest is recommended to assess for resolution of the right lower lobe airspace opacity and the mediastinal lymphadenopathy. 4. Moderate centrilobular and paraseptal emphysema. 5. Bilateral bronchiolitis and debris in the trachea, indicating that the patient may be at risk for aspiration. 6. Biapical pulmonary nodularity, which may related to pleural/parenchymal scarring, and scattered non-calcified pulmonary nodules, measuring up to 6 mm. ??Attention on follow-up imaging is recommended to assess for stability. 7. Nodular hepatic contour, as can be seen in setting of cirrhosis. 8. Mild splenomegaly (13.2 cm). Electronically signed by: Silvestre Morales M.D. Narrative 01/10/2020 12:59 PM CDT EXAMINATION: CTA CHEST W CONTRAST ORDERING HEALTHCARE PROVIDER: ABISAI ALEJANDRE HISTORY: Hypoxia shortness of breath, and elevated d-dimer since yesterday. ??History of emphysema. ??Concern for pulmonary embolism. COMPARISON: Chest radiograph from 01/09/2020 and chest radiograph from 10/08/2017. TECHNIQUE: CT chest of the chest (pulmonary embolism protocol) performed with intravenous contrast. ??Coronal and sagittal reformatted images were generated and reviewed. ??3D volumetric MIP images were generated and reviewed. Automated exposure control was used as a dose optimization technique for this examination. CONTRAST: 125 mL of Optiray 350 contrast was administered via a left forearm IV. FINDINGS: VASCULATURE: Adequate contrast bolus, without evidence of pulmonary embolism. ??The main pulmonary artery is normal in course and caliber. There is mild atherosclerotic calcification and tortuosity/ectasia of the thoracic aorta. ??There are mild coronary artery calcifications. LUNGS: There is debris in the trachea. ??There is bilateral bronchial wall thickening. ??There is airspace consolidation throughout the right lower lobe. ??There is mild bilateral subsegmental atelectasis or scarring. ??There is moderate centrilobular and paraseptal pulmonary emphysema. ??There is pleural/parenchyma scarring at the bilateral lung apices associated with biapical nodularity, measuring 3.6 x 3.1 cm on the right (axial image 14 of 92) and 2.4 cm on the left (axial image 11 of 92). ??There is a calcified right upper lobe pulmonary granuloma. ??There is a noncalcified 4 mm left lower lobe pulmonary nodule (axial image 67 of 92) and there is a 6 mm left lower lobe pulmonary nodule (axial image 37 of 92). PLEURA: There is a small right pleural effusion. ??There is no pneumothorax. MEDIASTINUM/TORREY: There are enlarged mediastinal lymph nodes. ??A credit and collections representative precarinal lymph node measures 2.0 x 1.3 cm (axial image 35 of 92). ??A credit and collections representative subcarinal lymph node measures 3.0 x 1.5 cm (axial image 45 of 92). ??There is no hilar lymphadenopathy. There is a moderate hiatal hernia. HEART: The heart size is normal. There is no pericardial effusion. AXILLA: There is no axillary lymphadenopathy. CHEST WALL: There is mild bilateral gynecomastia. UPPER ABDOMEN: The liver has a nodular contour. ??The spleen is enlarged, measuring 13.2 cm in length. MUSCULOSKELETAL: There are no acute or aggressive appearing osseous abnormalities. ??There is mild multilevel degenerative change of the thoracic spine. ??There are multiple chronic thoracic spine compression fractures, unchanged. Procedure Note Silvestre Morales MD - 01/10/2020 EXAMINATION: CTA CHEST W CONTRAST ORDERING HEALTHCARE PROVIDER: ABISAI ALEJANDRE HISTORY: Hypoxia shortness of breath, and elevated d-dimer since yesterday. History of emphysema. Concern for pulmonary embolism. COMPARISON: Chest radiograph from 01/09/2020 and chest radiograph from 10/08/2017. TECHNIQUE: CT chest of the chest (pulmonary embolism protocol) performed with intravenous contrast. Coronal and sagittal reformatted images were generated and reviewed. 3D volumetric MIP images were generated and reviewed. Automated exposure control was used as a dose optimization technique for this examination. CONTRAST: 125 mL of Optiray 350 contrast was administered via a left forearm IV. FINDINGS: VASCULATURE: Adequate contrast bolus, without evidence of pulmonary embolism. The main pulmonary artery is normal in course and caliber. There is mild atherosclerotic calcification and tortuosity/ectasia of the thoracic aorta. There are mild coronary artery calcifications. LUNGS: There is debris in the trachea. There is bilateral bronchial wall thickening. There is airspace consolidation throughout the right lower lobe. There is mild bilateral subsegmental atelectasis or scarring. There is moderate centrilobular and paraseptal pulmonary emphysema. There is pleural/parenchyma scarring at the bilateral lung apices associated with biapical nodularity, measuring 3.6 x 3.1 cm on the right (axial image 14 of 92) and 2.4 cm on the left (axial image 11 of 92). There is a calcified right upper lobe pulmonary granuloma. There is a noncalcified 4 mm left lower lobe pulmonary nodule (axial image 67 of 92) and there is a 6 mm left lower lobe pulmonary nodule (axial image 37 of 92). PLEURA: There is a small right pleural effusion. There is no pneumothorax. MEDIASTINUM/TORREY: There are enlarged mediastinal lymph nodes. A credit and collections representative precarinal lymph node measures 2.0 x 1.3 cm (axial image 35 of 92). A credit and collections representative subcarinal lymph node measures 3.0 x 1.5 cm (axial image 45 of 92). There is no hilar lymphadenopathy. There is a moderate hiatal hernia. HEART: The heart size is normal. There is no pericardial effusion. AXILLA: There is no axillary lymphadenopathy. CHEST WALL: There is mild bilateral gynecomastia. UPPER ABDOMEN: The liver has a nodular contour. The spleen is enlarged, measuring 13.2 cm in length. MUSCULOSKELETAL: There are no acute or aggressive appearing osseous abnormalities. There is mild multilevel degenerative change of the thoracic spine. There are multiple chronic thoracic spine compression fractures, unchanged. IMPRESSION: 1. No evidence of pulmonary embolism. 2. Right lower lobe pneumonia and small right pleural effusion. 3. Mediastinal lymphadenopathy, which is non-specific and may be reactive. A 2-3 month follow-up CT of the chest is recommended to assess for resolution of the right lower lobe airspace opacity and the mediastinal lymphadenopathy. 4. Moderate centrilobular and paraseptal emphysema. 5. Bilateral bronchiolitis and debris in the trachea, indicating that the patient may be at risk for aspiration. 6. Biapical pulmonary nodularity, which may related to pleural/parenchymal scarring, and scattered non-calcified pulmonary nodules, measuring up to 6 mm. Attention on follow-up imaging is recommended to assess for stability. 7. Nodular hepatic contour, as can be seen in setting of cirrhosis. 8. Mild splenomegaly (13.2 cm). Electronically signed by: Silvestre Morales M.D. Abisai Alejandre MD IMG CT PROCEDURES Final Result * US Vein Duplex Lower Extremity Bilateral Complete (01/10/2020 10:09 AM CDT) Anatomical Region Laterality Modality Vascular Bilateral Ultrasound 01/10/2020 10:1 1 AM CDT Impressions 01/10/2020 10:19 AM CDT No evidence of deep vein thrombosis in the bilateral lower extremities. Electronically signed by: Silvestre Morales M.D. Narrative 01/10/2020 10:19 AM CDT EXAMINATION: US VEIN DUPLEX LOWER EXTREMITY BILATERAL COMPLETE ORDERING HEALTHCARE PROVIDER: ABISAI ALEJANDRE HISTORY: Elevated d-dimer. ??Concern for deep vein thrombosis. COMPARISON: None available. TECHNIQUE: Grayscale, color and spectral Doppler sonographic evaluation of the bilateral lower extremity deep venous systems from the common femoral to the popliteal vein with compression and augmentation. FINDINGS: ??The bilateral common femoral, superficial femoral, and popliteal veins are readily compressible with no intraluminal thrombus on loera scale images. ??There is normal color and spectral Doppler signal, including augmentation. The bilateral greater saphenous veins appear patent. The visualized portions of the bilateral posterior tibial and peroneal veins are patent. Procedure Note Silvestre Morales MD - 01/10/2020 EXAMINATION: US VEIN DUPLEX LOWER EXTREMITY BILATERAL COMPLETE ORDERING HEALTHCARE PROVIDER: ABISAI ALEJANDRE HISTORY: Elevated d-dimer. Concern for deep vein thrombosis. COMPARISON: None available. TECHNIQUE: Grayscale, color and spectral Doppler sonographic evaluation of the bilateral lower extremity deep venous systems from the common femoral to the popliteal vein with compression and augmentation. FINDINGS: The bilateral common femoral, superficial femoral, and popliteal veins are readily compressible with no intraluminal thrombus on loera scale images. There is normal color and spectral Doppler signal, including augmentation. The bilateral greater saphenous veins appear patent. The visualized portions of the bilateral posterior tibial and peroneal veins are patent. IMPRESSION: No evidence of deep vein thrombosis in the bilateral lower extremities. Electronically signed by: Silvestre Morales M.D. Abisai Alejandre MD IMG US PROCEDURES Final Result * eGFR (01/10/2020 5:58 AM CDT) [facility] eGFR 81 mL/min/1.7 3 m2 [facility] ([place]) Comment: Interpretive Data Reference Interval Normal ?>/= 90 mL/min/1.73m2 Mildly decreased* ? 60 - 89 mL/min/1.73m2 Mildly to moderately decreased ?45 - 59 mL/min/1.73m2 Moderately to severely decreased ??30 - 44 mL/min/1.73m2 Severely decreased ?15 - 29 mL/min/1.73m2 Kidney Failure ?< 15 ??mL/min/1.73m2 *Relative to young adult level If -Citizen Of [place] multiply value by 1.16. Estimated glomerular filtration [...] was last reviewed 2015. Blood specimen (specimen) 01/10/2020 5:58 AM CDT 01/10/2020 6:06 AM CDT us Humble Chester MD LAB BLOOD ORDERABLES Final Res ult [facility] ([place]) 1 [facility] [place] [address] * (ABNORMAL) Differential, auto (01/10/2020 5:58 AM CDT) Neutrophil abs 6.9(H) 1.7 - 6.5 K/cumm [facility] ([place]) Imm gran abs 0.1 0.0 - 0.1 K/cumm [facility] ([place]) Lymphocyte abs 0.3(L) 0.8 - 3.3 K/cumm [facility] ([place]) Monocyte abs 0.2 0.2 - 0.8 K/cumm [facility] ([place]) Eosinophil abs 0.0 0.0 - 0.5 K/cumm [facility] ([place]) Basophil abs 0.0 0.0 - 0.1 K/cumm [facility] ([place]) Neutrophil pct 92.0 % [facility] ([place]) Comment: Interpretive Data Percent cell count reference ranges are not reported, since discordance with absolute values may lead to misinterpretation of CBC data. Current Interpretive Data was last revised on 2017. Imm gran pct 1.2 % [facility] ([place]) Comment: Interpretive Data Percent cell count reference ranges are not reported, since discordance with absolute values may lead to misinterpretation of CBC data. Current Interpretive Data was last revised on 2017. Lymphocyte pct 4.2 % [facility] ([place]) Comment: Interpretive Data Percent cell count reference ranges are not reported, since discordance with absolute values may lead to misinterpretation of CBC data. Current Interpretive Data was last revised on 2017. Monocyte pct 2.3 % [facility] ([place]) Comment: Interpretive Data Percent cell count reference ranges are not reported, since discordance with absolute values may lead to misinterpretation of CBC data. Current Interpretive Data was last revised on 2017. Eosinophil pct 0.0 % [facility] ([place]) Comment: Interpretive Data Percent cell count reference ranges are not reported, since discordance with absolute values may lead to misinterpretation of CBC data. Current Interpretive Data was last revised on 2017. Basophil pct 0.3 % [facility] ([place]) Comment: Interpretive Data Percent cell count reference ranges are not reported, since discordance with absolute values may lead to misinterpretation of CBC data. Current Interpretive Data was last revised on 2017. Blood specimen (specimen) 01/10/2020 5:58 AM CDT 01/10/2020 6:06 AM CDT us Humble Chester MD LAB BLOOD ORDERABLES Final Res ult [facility] ([place]) 1 [facility] [place] [address] * (ABNORMAL) CBC with auto differential (01/10/2020 5:58 AM CDT) WBC 7.5 3.8 - 9.9 K/cumm [facility] ([place]) Hgb 12.4(L) 13.0 - 17.5 g/dL [facility] ([place]) Hct 36.8(L) 38.9 - 50.3 % [facility] ([place]) Plt 140(L) 150 - 400 K/cumm [facility] ([place]) MPV 10.3 9.1 - 12.3 fL [facility] RBC 4.16(L) 4.30 - 5.80 M/cumm [facility] MCV 88.5 81.3 - 96.4 fL [facility] ([place]) MCH 29.8 27.1 - 33.3 pg [facility] ([place]) MCHC 33.7 32.3 - 35.7 g/dL [facility] ([place]) RDW CV 13.4 11.1 - 14.9 % [facility] ([place]) RDW SD 43.8 35.7 - 48.1 fL [facility] NRBC abs 0.00 0.00 - 0.01 K/cumm [facility] ([place] Blood specimen (specimen) 01/10/2020 5:58 AM CDT 01/10/2020 6:06 AM CDT us Humble Chester MD LAB BLOOD ORDERABLES Final Res ult [facility] ([place]) 1 [facility] [place] [address] * (ABNORMAL) Basic metabolic panel (01/10/2020 5:58 AM CDT) Sodium 133(L) 135 - 145 mmol/L [facility] ([place]) Potassium, pl 3.1(L) 3.3 - 4.9 mmol/L [facility]) Chloride 93(L) 97 - 110 mmol/L [facility] ([place]) CO2 27 22 - 32 mmol/L [facility] Anion gap 14 2 - 15 mmol/L [facility] ([place]) BUN 38(H) 8 - 25 mg/dL [facility] Creatinine 0.98 0.80 - 1.30 mg/dL [facility] ([place]) Glucose 145 70 - 199 mg/dL [facility] ([place] Comment: Interpretive Data Fasting glucose [...] 2017. Calcium 9.0 8.5 - 10.3 mg/dL [facility] ([place]) Blood specimen (specimen) 01/10/2020 5:58 AM CDT 01/10/2020 6:06 AM CDT Humble Chester MD LAB BLOOD ORDERABLES Final Res ult Performing Organization Address City/[facility]/ZIP Co de Phone Number [facility] ([place]) 1 [facility] [employer] [place] [address] * Strep pneumoniae antigen, urine Urine (01/10/2020 4:00 AM CDT) S. pneumoniae Ag Negative Negative [facility] ([place]) Comment:Testing performed by : [facility], [address] [place] [address]., [id number] Urine 01/10/2020 4:00 AM CDT 01/10/2020 9:08 AM CDT Beth Kaba MD LAB MICROBIOLOGY - GENER AL ORDERABLES Final Result Performing Organization Address City/[facility]/ZIP Co de Phone Number [facility] ([place]) 1 [facility] [place] [address] * (ABNORMAL) Legionella antigen Urine (01/10/2020 4:00 AM CDT) Legionella Ag Positive( A) Negative HARPER GUERRERO ([place]) Comment: Interpretive Data This test detects only Legionella pneumophila serogroup 1 antigen. ?? Current interpretive data was last revised on 2019. Testing performed by: [facility], [address] [place] [address], [facility], [address] Urine 01/10/2020 4:00 AM CDT 01/10/2020 9:08 AM CDT Beth Kaba MD LAB MICROBIOLOGY - GENER AL ORDERABLES Final Result Performing Organization Address City/[facility] Co de Phone Number HARPER GUERRERO ([place]) 1 [facility] [place] [address] * ECG 12 lead (01/09/2020 10:13 PM CDT) 01/09/2020 10:1 3 PM CDT Narrative [facility] - 01/10/2020 12:17 PM CDT Vent Rate: 63 bpm RR Interval: 946 msec OK Interval: 147 msec QRS Duration: 113 msec QT Interval: 469 msec QTC Interval: 476 msec P-R-T Tanana: 71 - 38 - 29 degrees SINUS RHYTHM WITH OCCASIONAL SUPRAVENTRICULAR PREMATURE COMPLEXES MODERATE INTRAVENTRICULAR CONDUCTION DELAY [110+ ms QRS DURATION] PROLONGED QT INTERVAL ABNORMAL ECG Electronically Signed By: Go Meade MD Beth Kaba MD ECG ORDERABLES Final Re sult Performing Organization Address [facility] Co de Phone Number [facility] * (ABNORMAL) BLOOD MISC TO [facility] (01/09/2020 7:53 PM CDT) Test name, chem MYCO M. pneumoniae Ab, IgG and IgM, S HARPER GUERRERO ([place]) Misc See Comment(A) [facility]PER GUERRERO ([place]) Comment: Test ? Result ?? Flag ??Unit ??RefValue M. pneumoniae Ab, IgG and IgM, S ??M. pneumoniae Ab, IgG, S ? Positive ??A ?Negative ??M. pneumoniae Ab, IgM, S ? Negative ? Negative ??M. pneumoniae Ab Interpretation ?Results suggest past exposure. ? ADDITIONAL INFORMATION ?This test has been modified from the licensed land surveyor's ?instructions. Its performance characteristics were ?determined by [facility] in a manner consistent with ?CLIA requirements. This test has not been cleared or ?approved by the U.S. Food and Drug Administration. ?Test Performed by: ?[facility] ?[address] [place] [address] ?Coremaking Machine Setter: Samuel Ortiz M.D. Ph.D.; CLIA# [id number] Blood specimen (specimen) 01/09/2020 7:53 PM CDT 01/10/2020 10:30 AM CDT us Abisai Alejandre MD LAB BLOOD ORDERABLES Final Resul t Performing Organization Address City/State/[facility] Co de Phone Number HARPER GUERRERO ([place]) 1 [facility] [place] [address] * T4, free (01/09/2020 7:53 PM CDT) Pathologist [facility] Free T4 1.58 0.90 - 1.70 ng/dL HARPER GUERRERO ([place]) Blood specimen (specimen) 01/09/2020 7:53 PM CDT 01/09/2020 8:46 PM CDT Narrative HAR[facility] GUERRERO ([place]) - 01/09/2020 9:48 PM CDT This test was reflexed from a TSH result. Beth Kaba MD LAB BLOOD ORDERABLES Fin al Result Performing Organization Address City/[facility]/ZIP Co de Phone Number HARPER GUERRERO ([place]) 1 [facility] [employer] [place] [address] * Ammonia (01/09/2020 7:53 PM CDT) Ammonia 19 10 - 60 mcmol/L [facility] ([place]) Blood specimen (specimen) 01/09/2020 7:53 PM CDT 01/09/2020 8:46 PM CDT Beth Kaba MD LAB BLOOD ORDERABLES Fin al Result Performing Organization Address [facility] de Phone Number HARPER GUERRERO ([place]) [address] [place] [address] [employer] [place] [address] * (ABNORMAL) TSH reflex to free T4 (01/09/2020 7:53 PM CDT) TSH 0.09(L) 0.30 - 4.20 mcIUnit/mL [facility] ([place]) Blood specimen (specimen) 01/09/2020 7:53 PM CDT 01/09/2020 8:46 PM CDT Beth Kaba MD LAB BLOOD ORDERABLES Fin al Result Performing Organization Address [facility] Co de Phone Number HARPER GUERRERO ([place]) 1 [facility] [employer] [place] [address] * (ABNORMAL) Sodium level (01/09/2020 7:53 PM CDT) Sodium 130(L) 135 - 145 mmol/L [facility] ([place]) Blood specimen (specimen) 01/09/2020 7:53 PM CDT 01/09/2020 8:47 PM CDT Beth Kaba MD LAB BLOOD ORDERABLES Fin al Result Performing Organization Address [facility] Co de Phone Number HARPER GUERRERO ([place]) 1 [facility] [employer] [place] [address] * (ABNORMAL) Procalcitonin (01/09/2020 7:53 PM CDT) Procalcitonin 4.3(H) <=0.15 ng/mL HARPER GUERRERO ([place]) Comment: Test Performed by: [facility] [address] [place] [address] Coremaking Machine Setter: Samuel Ortiz M.D. Ph.D.; CLIA# [id number] Blood specimen (specimen) 01/09/2020 7:53 PM CDT 01/09/2020 8:46 PM CDT Beth Kaba MD LAB BLOOD ORDERABLES Fin al Result Performing Organization Address [facility] de Phone Number HARPER GUERRERO ([place]) 1 [facility] [place] [address] * (ABNORMAL) D-dimer, quantitative (01/09/2020 7:53 PM CDT) D-Dimer 2,455(H) <=499 ng/mL FEU [facility]PER GUERRERO ([place]) Comment: Interpretive data FDA approved the D-dimer, in conjunction with a low or moderate pretest probability score, to exclude venous thromboembolic events (VTE) (PE and DVT) in outpatients when the D-dimer result is < 500 ng/ml FEU. ?? Evidence supports using an age-adjusted D-dimer cut-off for outpatients older than 50 (age x 10) to improve specificity without sacrificing sensitivity. Example: age 68, VTE cut-off 680 ng/ml FEU. References; Schouten HT et al. Brit Med J. 2013;346:f2492. Marco et al. Annals Int Med. 2015;163:701-11. Current interpretive data was last revised on 2019. Blood specimen (specimen) 01/09/2020 7:53 PM CDT 01/09/2020 8:46 PM CDT Beth Kaba MD LAB BLOOD ORDERABLES Fin al Result Performing Organization Address City/[facility]/ZIP Co de Phone Number HARPER GUERRERO ([place]) 1 [facility] of [employer] [place] [address] * (ABNORMAL) CRP (acute phase) (01/09/2020 7:53 PM CDT) CRP 426.8(H) <=10.0 mg/L HARPER [facility] ([place]) Blood specimen (specimen) 01/09/2020 7:53 PM CDT 01/09/2020 8:47 PM CDT Beth Kaba MD LAB BLOOD ORDERABLES Bruce franco Result - Final Performing Organization Address [facility] Co de Phone Number HARPER GUERRERO ([place]) 1 [facility] [place] [address] * (ABNORMAL) Blood gas, arterial (01/09/2020 7:02 PM CDT) pH, Art 7.41 7.35 - 7.45 [facility] ([place]) PCO2, Arterial 46(H) 35 - 45 mmHg [facility] ([place]) PO2, Arterial 39(C) 83 - 108 mmHg [facility] ([place]) Comment:Critical result call ed to and read back by Neva Schroeder ([facility]) on 01/09/2020 19:20:32 CDT to Charley Coughlin. HCO3 Art (Calculated) 29 20 - 30 mmol/L [facility] ([place]) BE, art 4 mmol/L [facility] ([place]) Comment: Interpretive Data No Reference Range Established Current Interpretive Data was last revised on 2017 O2 Sat Art (Measured) 69(L) 90 - 95 % [facility] ([place]) Blood specimen (specimen) 01/09/2020 7:02 PM CDT 01/09/2020 7:16 PM CDT Beth Kaba MD LAB BLOOD ORDERABLES Fin al Result HARPER GUERRERO ([place]) 1 [facility] [employer] [place] [address] * COVID-19 Coronavirus RNA Nasopharyngeal (01/09/2020 4:26 PM CDT) COVID-19 RNA Not Detected ELI GUERRERO ([place]) Comment: Interpretive Data Testing performed at [facility]. The 2019-Novel Coronavirus Assay (COVID-19) Real Time RT-PCR assay is for in vitro diagnostic use under FDA emergency use authorization only. A negative RT-PCR result does not preclude infection with COVID-19 and should not be used as the sole basis for treatment or other patient management decisions. Additional sample types have been validated according to CLIA regulations. ?? Current Interpretive Data was last revised on 2019. Testing performed by: [facility], 1 [place]., [address] Nasopharyngeal 01/09/2020 4: 26 PM CDT 01/09/2020 10:15 PM CDT Narrative HARPER GUERRERO ([place]) - 01/10/2020 6:01 AM CDT Is the patient experiencing any symptoms consistent with COVID (eg. Fever, cough, shortness of breath)?->Yes What is the reason for testing?->Likely to be admitted Humble Chester MD LAB MICROBIOLOGY - GENERAL ORD ERABLES Final Result HARPER GUERRERO ([place]) 1 [facility] Department of [employer] [place] [address] * XR Chest 1 Vw Portable (01/09/2020 3:16 PM CDT) Anatomical Region Laterality Modality Body, Chest N/A Computed Radiogr aphy 01/09/2020 3:34 PM CDT Impressions 01/09/2020 3:35 PM CDT 1. ??Interval development of right middle and lower lung airspace consolidation, suspicious for pneumonia. ??Recommend radiographic follow-up to resolution. Electronically signed by: Felix Valiente M.D. Narrative 01/09/2020 3:35 PM CDT EXAMINATION: XR CHEST 1 VIEW HISTORY: cough. ??Shortness of breath for days ?? FINDINGS: Single view submitted with comparison 10/08/2017. There is been interval development of right mid and lower lung airspace consolidation. ??There is no pneumothorax. ??The heart size is within normal limits. ??Moderate hiatal hernia is noted. Procedure Note Felix Valiente MD - 01/09/2020 EXAMINATION: XR CHEST 1 VIEW HISTORY: cough. Shortness of breath for days FINDINGS: Single view submitted with comparison 10/08/2017. There is been interval development of right mid and lower lung airspace consolidation. There is no pneumothorax. The heart size is within normal limits. Moderate hiatal hernia is noted. IMPRESSION: 1. Interval development of right middle and lower lung airspace consolidation, suspicious for pneumonia. Recommend radiographic follow-up to resolution. Electronically signed by: Felix Valiente M.D. Humble Chester MD IMG XR PROCEDURES Final Result * (ABNORMAL) Drugs of Abuse Screen, Urine without Confirmation (01/09/2020 2:42 PM CDT) Amphetamine, ur Not Detected CutOff 500ng/mL [facility] ([place]) Comment: Interpretive Data - Amphetamines: ??Samples containing greater than 500 ng/mL d-methamphetamine ??or other cross-reacting amphetamine compounds are reported as positive. ??Amphetamine immunoassays are subject to significant false positive rates due to cross-reactivity of non-amphetamine drugs. Current Interpretive Data was last reviewed 2018. Barbiturates, ur Not Detected CutOff 200ng/mL [facility] ([place]) Comment: Interpretive Data - Barbiturates: ??Samples containing greater than 200 ng/mL secobarbital or other cross-reacting barbiturate compounds are reported as positive. ??False positive and false negative results are possible. Current Interpretive Data was last reviewed 2018. Benzodiazepines, ur Detected(A) CutOff 100ng/mL [facility] ([place]) Comment: Interpretive Data - Benzodiazepines: ??Samples containing greater than 100 ng/mL nordiazepam or other cross-reacting compounds are reported as positive. ?? False positive and false negative results are possible. ?? Current Interpretive Data was last reviewed 2018. Cannabinoids, ur Not Detected CutOff 50 ng/mL [facility] ([place]) Comment: Interpretive Data - Cannabinoids: ??Samples containing greater than 50 ng/mL delta-9 THC -COOH or other cross-reacting compounds are reported as positive. ??False positive and false negative results are possible. ?? Current Interpretive Data was last reviewed 2018. Cocaine, ur Not Detected CutOff 150ng/mL [facility] ([place]) Comment: Interpretive Data - Cocaine: ??Samples containing greater than 150 ng/mL benzoylecgonine or other cross-reacting compounds are reported as positive. False positive and false negative results are possible. Current Interpretive Data was last reviewed 2018. Fentanyl, Ur Not Detected Cutoff 1 ng/mL [facility] ([place]) Comment: Interpretive Data - Fentanyls: ??Samples containing greater than 1 ng/mL fentanyl or other cross-reacting fentanyl compounds are reported as detected. ??False positive and false negative results are possible. Current Interpretive Data was last reviewed 2019. Methadone, ur Detected(A) CutOff 300ng/mL [facility] ([place]) Comment: Interpretive Data - Methadone: ??Samples containing greater than 300 ng/mL d,l-methadone or other cross-reacting compounds are reported as positive. ??False positive and false negative results are possible. Current Interpretive Data was last reviewed 2018. Opiates, ur Not Detected CutOff 300ng/mL [facility] ([place]) Comment: Interpretive Data - Opiates: ??Samples containing greater than 300 ng/mL morphine or other cross-reacting compounds are reported as positive. ??False positive and false negative results are possible. Current Interpretive Data was last reviewed 2018. Oxycodone, ur Not Detected CutOff 100ng/mL [facility] ([place]) Comment: Interpretive Data - Oxycodone: ??Samples containing greater than 100 ng/mL oxycodone or other cross-reacting compounds are reported as positive. ??False positive and false negative results are possible. ?? Current Interpretive Data was last reviewed 2018. Phencyclidine, ur Not Detected CutOff 25 ng/mL [facility] ([place]) Comment: Interpretive Data - Phencyclidine: ??Samples containing greater than 25 ng/mL phencyclidine or other cross-reacting compounds are reported as positive. ??False positive and false negative results are possible. ?? Current Interpretive Data was last reviewed 2018. Urine Creatinine 152 mg/dL CON[facility] GUERRERO ([place]) Comment: Interpretive Data Urine Creatinine: < 10 mg/dL is extremely dilute = or > 10 but < 20 mg/dL is dilute = or > 20 mg/dL is normal Current Interpretive Data was last revised on 2017. Urine 01/09/2020 2:42 PM CDT 01/09/2020 11:09 PM CDT Narrative HARPER GUERRERO ([place]) - 01/10/2020 12:37 AM CDT Drug of Abuse screening is performed by immunoassay for medical purposes only. ??This is not to be used for Pain Management purposes. Beth Kaba MD LAB URINE ORDERABLES Fin al Result HARPER GUERRERO ([place]) 1 [facility] [place] [address] * (ABNORMAL) Urinalysis, microscopic only (01/09/2020 2:42 PM CDT) WBC, ur 0-5 0 - 5 /HPF [facility] ([place]) RBC, ur 0-2 0 - 2 /HPF [facility] ([place]) Epithelial cells, squamous, ur 1-5 0 - 5 /HPF [facility] ([place]) Bacteria, ur Trace(A) [facility] ([place]) Mucous, ur Present(A) HARPER A ([place]) Hyaline casts, ur 1-5 0 - 10 /LPF HARPER GUERRERO ([place]) Culture Reflex Comment Reflex conditions for urine culture (WBC >10) not met. HARPER GUERRERO ([place]) Urine 01/09/2020 2:42 PM CDT 01/09/2020 2:44 PM CDT Humble Chester MD LAB URINE ORDERABLES Final Res ult Performing Organization Address City/[facility]/ZIP Co de Phone Number HARPER GUERRERO ([place]) 1 [facility] [employer] [place] [address] * (ABNORMAL) Urinalysis reflex to microscopic and culture Urine (01/09/2020 2:42 PM CDT) Color, ur Yellow Yellow [facility] ([place]) Clarity, ur Clear Clear [facility] ([place]) Specific gravity, ur 1.024 1.010 - 1.025 [facility] ([place]) pH, urine 6.0 [facility] ([place]) Protein, ur ql 2+(A) Negative [facility] ([place]) Glucose, ur ql Negative Negative [facility] ([place]) Ketones, ur Negative Negative [facility] ([place]) Bilirubin, ur Negative Negative [facility] ([place]) Blood, ur 2+(A) Negative [facility] ([place]) Urobilinogen, ur <2.0 <2.0 mg/dL [facility] ([place]) Nitrite, ur Negative Negative [facility] ([place]) Leukocyte esterase, ur Negative Negative [facility] ([place]) UA reflex comment Reflex to microscopic UA will be performed. [facility] ([place]) Urine 01/09/2020 2:42 PM CDT 01/09/2020 2:44 PM CDT Narrative [facility] ([place]) - 01/09/2020 2:47 PM CDT ?? Urine pH is affected by diet, medications, systemic acid-base disturbances, and renal tubular function. ??pH may affect urinary stone formation. ??For example, urine pH below 6.0 may help reduce the tendency for calcium phosphate stones and pH greater than 6.0 may reduce the tendency for uric acid stone formation. Source: [employer]. Last revised 06-04-2017 us Humble Chester MD LAB MICROBIOLOGY - GENERAL ORD ERABLES Final Result Performing Organization Address City/[facility]/ZIP Co de Phone Number HARPER GUERRERO ([place]) 1 [facility] [employer] [place] [address] * eGFR (01/09/2020 2:13 PM CDT) eGFR 58 mL/min/1.7 3 m2 HARPER GUERRERO ([place]) Comment: Interpretive Data Reference Interval Normal ?>/= 90 mL/min/1.73m2 Mildly decreased* ? 60 - 89 mL/min/1.73m2 Mildly to moderately decreased ?45 - 59 mL/min/1.73m2 Moderately to severely decreased ??30 - 44 mL/min/1.73m2 Severely decreased ?15 - 29 mL/min/1.73m2 Kidney Failure ?< 15 ??mL/min/1.73m2 *Relative to young adult level If -Citizen Of [place] multiply value by 1.16. Estimated glomerular filtration [...] was last reviewed 2015. Blood specimen (specimen) 01/09/2020 2:13 PM CDT 01/09/2020 2:15 PM CDT us Humble Chester MD LAB BLOOD ORDERABLES Final Res ult HARPER GUERRERO ([place]) 1 [facility] [place] [address] * (ABNORMAL) Differential, auto (01/09/2020 2:13 PM CDT) Neutrophil abs 8.4(H) 1.7 - 6.5 K/cumm [facility]PER GUERRERO ([place]) Imm gran abs 0.1 0.0 - 0.1 K/cumm [facility] ([place]) Lymphocyte abs 0.3(L) 0.8 - 3.3 K/cumm [facility] ([place]) Monocyte abs 0.3 0.2 - 0.8 K/cumm [facility] ([place]) Eosinophil abs 0.0 0.0 - 0.5 K/cumm [facility] ([place]) Basophil abs 0.1 0.0 - 0.1 K/cumm [facility] ([place]) Neutrophil pct 91.0 % [facility] ([place]) Comment: Consistent with previous result Interpretive Data Percent cell count reference ranges are not reported, since discordance with absolute values may lead to misinterpretation of CBC data. Current Interpretive Data was last revised on 2017. Imm gran pct 1.3 % [facility] ([place]) Comment: Interpretive Data Percent cell count reference ranges are not reported, since discordance with absolute values may lead to misinterpretation of CBC data. Current Interpretive Data was last revised on 2017. Lymphocyte pct 3.7 % [facility] ([place]) Comment: Interpretive Data Percent cell count reference ranges are not reported, since discordance with absolute values may lead to misinterpretation of CBC data. Current Interpretive Data was last revised on 2017. Monocyte pct 3.2 % [facility] ([place]) Comment: Interpretive Data Percent cell count reference ranges are not reported, since discordance with absolute values may lead to misinterpretation of CBC data. Current Interpretive Data was last revised on 2017. Eosinophil pct 0.2 % [facility] ([place]) Comment: Interpretive Data Percent cell count reference ranges are not reported, since discordance with absolute values may lead to misinterpretation of CBC data. Current Interpretive Data was last revised on 2017. Basophil pct 0.6 % [facility] ([place]) Comment: Interpretive Data Percent cell count reference ranges are not reported, since discordance with absolute values may lead to misinterpretation of CBC data. Current Interpretive Data was last revised on 2017. Blood specimen (specimen) 01/09/2020 2:13 PM CDT 01/09/2020 2:15 PM CDT Humble Chester MD LAB BLOOD ORDERABLES Final Res ult HARPER GUERRERO ([place]) 1 [facility] [place] [address] * Blood culture Blood (01/09/2020 2:13 PM CDT) Report Final Report: No growth HARPER GUERRERO ([place]) Comment:Testing performed by : [facility], 1 [facility] [place]., [address] Blood specimen (specimen) 01/09/2020 2:13 PM CDT 01/09/2020 5:25 PM CDT Narrative HARPER GUERRERO ([place]) - 01/14/2020 7:00 AM CDT From a different site than #1. 1. ?Blood cultures are incubated for 4 days on a continuously monitored blood culture system. The first report of a negative culture is issued within 24 hours of receipt of the specimen in the laboratory. 2. ?Positive culture results are reported as soon as they are detected. 3. ?The most important factor for detection of microbes in the setting of bloodstream infection is the volume of blood submitted for culture. Failure to collect an optimal blood volume can result in false negative blood cultures. For pediatric patients, the recommended blood volume to collect is 1 mL of blood per year of patient age (up to 20 mL) per blood culture set. For adult patients, 20 mL of blood, divided equally between aerobic and anaerobic blood culture bottles, is recommended for each blood culture set. 4. ?For blood cultures with Gram-positive cocci, a rapid molecular test for organism identification may be performed using the V[employer] Gram-Positive Blood Culture Assay. This assay detects microbial DNA in positive blood culture broth via hybridization of target DNA to capture oligonucleotides on a microarray. This assay has been cleared by the [place] Food and Drug Administration and its performance characteristics have been verified by the [facility]. 5. ?For questions about this culture, contact the Microbiology Laboratory at [phone]. Interpretive data was last revised on 2019. Humble Chester MD LAB MICROBIOLOGY - GENERAL ORD ERABLES Final Result [facility] ([place]) 1 [facility] Department of [employer] [place] [address] * Sepsis Lactate w/ Reflex (01/09/2020 2:13 PM CDT) Pathologist [facility] Sepsis Lactate 2.0 0.7 - 2.0 mmol/L [facility] ([place]) Blood specimen (specimen) 01/09/2020 2:13 PM CDT 01/09/2020 2:15 PM CDT Humble Chester MD LAB BLOOD ORDERABLES Final Res ult Performing Organization Address City/[facility]/ZIP Co de Phone Number HARPER GUERRERO ([place]) 1 [facility] Department of [employer] [place] [address] * (ABNORMAL) Comprehensive metabolic panel (01/09/2020 2:13 PM CDT) Sodium 131(L) 135 - 145 mmol/L [facility] ([place]) Potassium, pl 3.6 3.3 - 4.9 mmol/L [facility] ([place]) Chloride 88(L) 97 - 110 mmol/L [facility] ([place]) CO2 31 22 - 32 mmol/L [facility] ([place]) Anion gap 12 2 - 15 mmol/L [facility] ([place]) BUN 34(H) 8 - 25 mg/dL [facility] ([place]) Creatinine 1.28 0.80 - 1.30 mg/dL [facility] ([place]) Glucose 140 70 - 199 mg/dL [facility] ([place]) Comment: Interpretive Data Fasting glucose [...] interpretive data was last revised 2017. Calcium 9.7 8.5 - 10.3 mg/dL [facility] ([place]) Bilirubin, total 0.7 0.1 - 1.2 mg/dL [facility] ([place]) Protein, pl 8.1 6.5 - 8.5 g/dL [facility] ([place]) Albumin 3.4(L) 3.5 - 5.0 g/dL [facility] ([place]) Alk phos 44 40 - 130 Units/L [facility] ([place]) ALT 18 7 - 55 Units/L [facility] ([place]) AST 53(H) 10 - 50 Units/L [facility] ([place]) Blood specimen (specimen) 01/09/2020 2:13 PM CDT 01/09/2020 2:15 PM CDT us Humble Chester MD LAB BLOOD ORDERABLES Final Res ult [facility] ([place]) [facility] [place] [address] * CBC with auto differential (01/09/2020 2:13 PM CDT) WBC 9.3 3.8 - 9.9 K/cumm [facility] ([place]) Hgb 13.4 13.0 - 17.5 g/dL [facility] ([place]) Hct 40.5 38.9 - 50.3 % [facility] ([place]) Plt 172 150 - 400 K/cumm [facility] ([place]) MPV 10.1 9.1 - 12.3 fL [facility] ([place]) RBC 4.56 4.30 - 5.80 M/cumm [facility] ([place]) MCV 88.8 81.3 - 96.4 fL [facility] ([place]) MCH 29.4 27.1 - 33.3 pg [facility] ([place]) MCHC 33.1 32.3 - 35.7 g/dL [facility] ([place]) RDW CV 13.4 11.1 - 14.9 % [facility] ([place]) RDW SD 43.9 35.7 - 48.1 fL [facility] ([place]) NRBC abs 0.00 0.00 - 0.01 K/cumm [facility] ([place]) Blood specimen (specimen) 01/09/2020 2:13 PM CDT 01/09/2020 2:15 PM CDT us Humble Chester MD LAB BLOOD ORDERABLES Final Res ult [facility] ([place]) [facility] [place] [address] * Blood culture Blood (01/09/2020 2:12 PM CDT) Report Final Report: No growth [facility] ([place]) Comment:Testing performed by : [facility], [address] [facility], [place]., [address] Blood specimen (specimen) 01/09/2020 2:12 PM CDT 01/09/2020 5:25 PM CDT Narrative [facility] ([place]) - 01/14/2020 7:00 AM CDT 1. ?Blood cultures are incubated for 4 days on a continuously monitored blood culture system. The first report of a negative culture is issued within 24 hours of receipt of the specimen in the laboratory. 2. ?Positive culture results are reported as soon as they are detected. 3. ?The most important factor for detection of microbes in the setting of bloodstream infection is the volume of blood submitted for culture. Failure to collect an optimal blood volume can result in false negative blood cultures. For pediatric patients, the recommended blood volume to collect is 1 mL of blood per year of patient age (up to 20 mL) per blood culture set. For adult patients, 20 mL of blood, divided equally between aerobic and anaerobic blood culture bottles, is recommended for each blood culture set. 4. ?For blood cultures with Gram-positive cocci, a rapid molecular test for organism identification may be performed using the Vrvanaigene Gram-Positive Blood Culture Assay. This assay detects microbial DNA in positive blood culture broth via hybridization of target DNA to capture oligonucleotides on a microarray. This assay has been cleared by the [place] Food and Drug Administration and its performance characteristics have been verified by the [facility]. 5. ?For questions about this culture, contact the Microbiology Laboratory at [phone]. Interpretive data was last revised on 2019. Humble Chester MD LAB MICROBIOLOGY - GENERAL ORD ERABLES Final Result [facility]) 1 [facility] [place] [address] documented in this encounter Visit Diagnoses Diagnosis Sepsis (HCC)- Primary Pneumonia Pneumonia, organism unspecified Pneumonia Pneumonia, organism unspecified COPD without exacerbation (HCC) Hyponatremia Hyposmolality and/or hyponatremia Diarrhea Altered mental status Cirrhosis of liver without ascites (CMS/HCC) (HCC) Legionnaire's disease (CMS/HCC) (HCC) Legionnaires' disease documented in this encounter Admitting Diagnoses Diagnosis Pneumonia Pneumonia, organism unspecified documented in this encounter Administered Medications Inactive Administered Medications - up to 3 most recent administrations Medication Order MAR Action Action Date Dose Rate Site acetaminophen (TYLENOL) tablet 1,000 mg 1,000 mg, oral, Once, On Thu01/09/20 at 1505, For 1 dose Given 01/09/2020 3:11 PM CDT 1,000 mg albuterol 2.5 mg /3 mL (0.083 %) nebulizer solution 2.5 mg 2.5 mg, nebulization, Every 4 hours PRN (respiratory technician), wheezing, Starting on Thu01/10/20 at 1446, This therapy was substituted for albuterol MDI per protocol., Indications: Dyspnea, WheezingIndications:Dyspnea, Wheezing azithromycin (ZITHROMAX) 500 mg/250 mL in sodium chloride 0.9% (premix) 500 mg 500 mg, intravenous, at 250 mL/hr, Administer over 60 Minutes, Every 24 hours scheduled, First dose on Thu01/09/20 at 1556, Indications: Pneumonia, Community AcquiredIndications:Pneumoni a, Community Acquired New Bag 01/09/2020 4:24 PM CDT 500 mg 250 mL/hr azithromycin (ZITHROMAX) 500 mg/250 mL in sodium chloride 0.9% (premix) 500 mg 500 mg, intravenous, at 250 mL/hr, Administer over 60 Minutes, Every 24 hours scheduled, First dose on Thu01/09/20 at 1717, Indications: Pneumonia, Community AcquiredIndications:Pneumoni a, Community Acquired New Bag 01/13/2020 10:02 AM CDT 500 mg 250 mL/hr New Bag 01/12/2020 9:03 AM CDT 500 mg 250 mL/hr New Bag 01/11/2020 9:23 AM CDT 500 mg 250 mL/hr azithromycin (ZITHROMAX) tablet 500 mg 500 mg, oral, Daily, First dose on Thu01/14/20 at 0900, This medication, Azithromycin 500 mg daily, was changed from IV route to oral route per protocol., Indications: Pneumonia, Community AcquiredIndications:Pneumonia, Community Acquired Given 01/16/2020 8:23 AM CDT 500 mg Given 01/15/2020 8:35 AM CDT 500 mg Given 01/14/2020 9:20 AM CDT 500 mg baclofen (LIORESAL) tablet 10 mg 10 mg, oral, 3 times daily, First dose on Thu01/10/20 at 1600 Given 01/17/2020 8:10 AM CDT 10 mg Given 01/16/2020 10:10 PM CDT 10 mg Given 01/16/2020 5:14 PM CDT 10 mg bisacodyl EC (DULCOLAX EC) tablet 10 mg 10 mg, oral, Daily PRN, constipation, If no results 24 hours after milk of magnesia, Starting on Thu01/10/20 at 1008, Do not crush, chew, cut, dissolve, open or otherwise manipulate tablet/capsule. budesonide-formoteroL (SYMBICORT) 160-4.5 mcg/actuation inhaler 2 puff 2 puff, inhalation, 2 times daily (respiratory technician), First dose on Thu01/09/20 at 2000, Rinse mouth with water after use. Do not swallow. Given 01/17/2020 7:52 AM CDT 2 puffs Given 01/16/2020 7:02 PM CDT 2 puffs Given 01/16/2020 7:11 AM CDT 2 puffs cefTRIAXone (ROCEPHIN) 1,000 mg/10 mL in sterile water (premix) 1,000 mg 1,000 mg, intravenous, at 600 mL/hr, Administer over 1 Minutes, Once, On Thu01/09/20 at 1556, For 1 dose, Indications: Pneumonia, Community AcquiredIndications:Pneumonia, Community Acquired Given 01/09/2020 4:12 PM CDT 1,000 mg 600 mL/hr cefTRIAXone (ROCEPHIN) 2,000 mg/20 mL in sterile water (premix) 2,000 mg 2,000 mg, intravenous, at 1,200 mL/hr, Administer over 1 Minutes, Every 24 hours scheduled, First dose (after last modification) on Thu01/09/20 at 1747, Indications: Pneumonia, Community AcquiredIndications:Pneumonia, Community Acquired Given 01/16/2020 9:48 AM CDT 2,000 mg 1200 mL/hr Given 01/15/2020 8:35 AM CDT 2,000 mg 1200 mL/hr Given 01/14/2020 9:21 AM CDT 2,000 mg 1200 mL/hr dexAMETHasone (DECADRON) 4 mg/mL injection 10 mg 10 mg, intravenous, Administer over 2 Minutes, Once, On Thu01/09/20 at 1556, For 1 dose Given 01/09/2020 4:21 PM CDT 10 mg enoxaparin (LOVENOX) syringe 40 mg 40 mg, subcutaneous, Daily (for enoxaparin), First dose on Thu01/09/20 at 2100, Indications: Deep Vein Thrombosis PreventionIndications:Deep Vein Thrombosis Prevention Given 01/16/2020 8:03 PM CDT 40 mg Right Lower Abdomen Given 01/15/2020 8:17 PM CDT 40 mg Le ft Lower Abdomen Given 01/14/2020 9:55 PM CDT 40 mg Le ft Lower Abdomen guaiFENesin-dextromethorphan ER (MUCINEX DM) 600-30 mg per 12 hour tablet 1 tablet 1 tablet, oral, 2 times daily, First dose (after last modification) on Thu01/16/20 at 2100 Given 01/17/2020 8:10 AM CDT 1 tablet Given 01/16/2020 8:03 PM CDT 1 tablet ioversoL (OPTIRAY 350) syringe syringe 125 mL 125 mL, intravenous, Once in imaging, contrast, Starting on Thu01/10/20 at 1000, For 1 dose Given 01/10/2020 10:07 AM CDT 125 mL ipratropium-albuteroL (DUO-NEB) 0.5-2.5 mg/3 mL nebulizer solution 3 mL 3 mL, nebulization, Every 4 hours PRN (respiratory technician), wheezing, shortness of breath, Starting on Thu01/09/20 at 1755, Indications: Chronic Obstructive Pulmonary Disease with BronchospasmsIndications:Chronic Obstructive Pulmonary Disease with Bronchospasms levothyroxine (SYNTHROID) tablet 75 mcg 75 mcg, oral, Daily (early AM), First dose on Thu01/11/20 at 0600, Administer on an empty stomach, preferably 30 minutes before breakfast. Take 4 hours apart from antacids, iron and calcium products. Given 01/17/2020 5:35 AM CDT 75 mcg Given 01/16/2020 4:53 AM CDT 75 mcg Given 01/15/2020 5:54 AM CDT 75 mcg magnesium hydroxide (MILK OF MAGNESIA) 80 mg/mL (33.3 mg/mL as elemental magnesium) oral suspension 30 mL 30 mL, oral, Daily PRN, constipation, Starting on Thu01/10/20 at 1008 methadone (DOLOPHINE) tablet 165 mg 165 mg, oral, Daily, First dose on Thu01/10/20 at 1600 Given 01/17/2020 9:39 AM CDT 165 mg Given 01/16/2020 8:23 AM CDT 165 mg Given 01/15/2020 8:35 AM CDT 165 mg mineral oil (FLEET MINERAL OIL) enema 1 enema 1 enema, rectal, Daily PRN, constipation, if no results 24 hours after bisacodyl, Starting on Thu01/10/20 at 1008, Indications: constipationIndications:constipation mirtazapine (REMERON) tablet 15 mg 15 mg, oral, Nightly, First dose on Thu01/10/20 at 2100 Given 01/16/2020 8:03 PM CDT 15 mg Given 01/15/2020 8:17 PM CDT 15 mg Given 01/14/2020 9:56 PM CDT 15 mg ondansetron (ZOFRAN) injection 4 mg 4 mg, intravenous, Administer over 2 Minutes, Every 6 hours PRN, nausea, vomiting, if not tolerating PO, Starting on Thu01/09/20 at 1716, Indications: Nausea and VomitingIndications:Nausea and Vomiting ondansetron ODT (ZOFRAN-ODT) disintegrating tablet 4 mg 4 mg, oral, Every 6 hours PRN, nausea, vomiting, Starting on Thu01/09/20 at 1716, Indications: Nausea and VomitingIndications:Nausea and Vomiting pantoprazole DR (PROTONIX) extended release tablet 40 mg 40 mg, oral, Daily, First dose on Thu01/10/20 at 1700, Do not crush, chew, cut, dissolve, open or otherwise manipulate tablet/capsule., Indications: Treatment of Non-Bleeding Gastric DisorderIndications:Treatment of Non-Bleeding Gastric Disorder Given 01/17/2020 8:10 AM CDT 40 mg Given 01/16/2020 8:22 AM CDT 40 mg Given 01/15/2020 8:35 AM CDT 40 mg potassium chloride ER (KLOR-CON) extended release tablet 10 mEq 10 mEq, oral, Daily, First dose on Thu01/10/20 at 1700, Do not crush, chew, cut, dissolve, open or otherwise manipulate tablet/capsule. Given 01/17/2020 8:10 AM CDT 10 mEq Given 01/16/2020 8:23 AM CDT 10 mEq Given 01/15/2020 8:34 AM CDT 10 mEq potassium chloride ER (KLOR-CON) extended release tablet 40 mEq 40 mEq, oral, Once, On Thu01/10/20 at 0900, For 1 dose, Do not crush, chew, cut, dissolve, open or otherwise manipulate tablet/capsule. Given 01/10/2020 10:53 AM CDT 40 mEq predniSONE (DELTASONE) tablet 40 mg 40 mg, oral, Daily, First dose on Thu01/16/20 at 1900, For 5 doses Given 01/17/2020 8:10 AM CDT 40 mg Given 01/16/2020 8:03 PM CDT 40 mg sertraline (ZOLOFT) tablet 100 mg 100 mg, oral, Daily, First dose on Thu01/10/20 at 1700 Given 01/17/2020 8:10 AM CDT 100 mg Given 01/16/2020 8:23 AM CDT 100 mg Given 01/15/2020 8:35 AM CDT 100 mg sodium chloride 0.9% bolus 1,000 mL 1,000 mL, intravenous, at 1,000 mL/hr, Administer over 1 Hours, Once, On Thu01/09/20 at 1505, For 1 dose New Bag 01/09/2020 3:12 PM CDT 1,000 mL 1000 mL/hr sodium chloride 0.9% flush 0.5-20 mL 0.5-20 mL, intra-catheter, Every 8 hours, First dose on Thu01/13/20 at 0600, Flush volume based on line type and size. Given 01/17/2020 5:35 AM CDT 10 mL Given 01/16/2020 10:10 PM CDT 10 mL Given 01/16/2020 2:56 PM CDT 10 mL sodium chloride 0.9% flush 0.5-20 mL 0.5-20 mL, intra-catheter, As needed, line care, Starting on Thu01/13/20 at 0009, Flush volume based on line type and size. Flush before and after each use. Given 01/14/2020 9:56 PM CDT 10 mL tamsulosin (FLOMAX) extended release capsule 0.4 mg 0.4 mg, oral, 2 times daily, First dose on Thu01/10/20 at 2100, Do not crush, chew, cut, dissolve, open or otherwise manipulate tablet/capsule. Given 01/17/2020 8:10 AM CDT 0.4 mg Given 01/16/2020 8:03 PM CDT 0.4 mg Given 01/16/2020 8:22 AM CDT 0.4 mg documented in this encounter Discontinued Medications Medication Sig Discontinue Reason Start Date End Da te ALPRAZolam (XANAX) 1 mg tablet 06/10/2017 01/10/2020 ferrous sulfate 325 mg (65 mg of elemental iron) tabletIndications:Iro n Deficiency Anemia Take 65 mg of elemental iron by mouth daily with breakfast. 01/10/2020 ibuprofen (ADVIL,MOTRIN) 800 mg tablet 07/10/2017 01/10/2020 levothyroxine (SYNTHROID, LEVOTHROID) 100 mcg tablet Take 88 mcg by mouth occupational therapy supervisor before breakfast 04/12/2018 01/10/2020 methadone (DOLOPHINE) 10 mg tablet Take 140 mg by mouth, 01/10/2020 mupirocin (BACTROBAN) 2 % ointment Apply topically daily Apply with each dressing change 06/04/2019 01/10/2020 pediatric multivitamin-iron tablet,chewable Take by mouth. 01/10/2020 raNITIdine (ZANTAC) 300 mg tablet 04/12/2018 01/10/2020 traZODone (DESYREL) 50 mg tablet Take 50 mg by mouth nightly. 01/10/2020 levothyroxine (SYNTHROID) 88 mcg tablet Take 88 mcg by mouth occupational therapy supervisor before breakfast Stop Taking at Discharge 01/17/2020 documented as of this encounter Historical Medications * This list may reflect changes made after this encounter. mirtazapine (REMERON) 15 mg tablet Take 15 mg by mouth nightly potassium chloride ER (KLOR-CON) 10 mEq CR tablet Take 10 mEq by mouth daily methadone (DOLOPHINE) 10 mg tablet Take 120 mg by mouth daily levothyroxine (SYNTHROID) 88 mcg tablet Take 88 mcg by mouth occupational therapy supervisor before breakfast 0 added in this encounter Active and Recently Administered Medications Times are shown in CDT. Scheduled Medication Order 01/15/2020 01/16/2020 01/17/2020 azithromycin (ZITHROMAX) tablet 500 mg (CANCELED) 500 mg, oral, Daily, First dose on 01/14/20 at 0900, This medication, Azithromycin 500 mg daily, was changed from IV route to oral route per protocol., Indications: Pneumonia, Community Acquired 0835 (Given - Provider: Edgardo Panda RN) 0823 (Given - Provider: Apoorva Adamson, KURTIS) baclofen (LIORESAL) tablet 10 mg 10 mg, oral, 3 times daily, First dose on Thu01/10/20 at 1600 0835 (Given - Provider: Edgardo Panda RN)1535 (Given - Provider: Edgardo Panda RN)2017 (Given - Provider: Kimberly Horne, KURTIS) 0822 (Given - Provider: Apoorva Adamson, KURTIS)1714 (Given - Provider: Apoorva Adamson, KURTIS)2210 (Given - Provider: Dinora Singleton RN) 0810 (Given - Provider: Apoorav Adamson, KURTIS) budesonide-formoteroL (SYMBICORT) 160-4.5 mcg/actuation inhaler 2 puff 2 puff, inhalation, 2 times daily (respiratory technician), First dose on Thu01/09/20 at 2000, Rinse mouth with water after use. Do not swallow. 0731 (Given - Provider: Agustina Ruvalcaba, COLOR RECEIVER)1910 (Given - Provider: Corrina Coughlin, COLOR RECEIVER) 0711 (Given - Provider: Rishi Mathews, COLOR RECEIVER)190 (Given - Provider: Romel Huggins, COLOR RECEIVER) 075 (Given - Provider: Elisabeth Meeks, COLOR RECEIVER) cefTRIAXone (ROCEPHIN) 2,000 mg/20 mL in sterile water (premix) 2,000 mg (CANCELED) 2,000 mg, intravenous, at 1,200 mL/hr, Administer over 1 Minutes, Every 24 hours scheduled, First dose (after last modification) on Thu01/09/20 at 1747, Indications: Pneumonia, Community Acquired 0835 (Given - Provider: Edgardo Panda, KURTIS) 0948 (Given - Provider: Apoorva Adamson, KURTIS) enoxaparin (LOVENOX) syringe 40 mg 40 mg, subcutaneous, Daily (for enoxaparin), First dose on Thu01/09/20 at 2100, Indications: Deep Vein Thrombosis Prevention 2016 (Given - Provider: Kimberly Horne RN) 2002 (Given - Provider: Dinora Singleton, KURTIS) guaiFENesin-dextrometho rphan ER (MUCINEX DM) 600-30 mg per 12 hour tablet 1 tablet 1 tablet, oral, 2 times daily, First dose (after last modification) on Thu01/16/20 at 2100 2002 (Given - Provider: Dinora Singleton, KURTIS) 0810 (Given - Provider: Apoorva Adamson, KURTIS) levothyroxine (SYNTHROID) tablet 75 mcg 75 mcg, oral, Daily (early AM), First dose on Thu01/11/20 at 0600, Administer on an empty stomach, preferably 30 minutes before breakfast. Take 4 hours apart from antacids, iron and calcium products. 0554 (Given - Provider: Kimberly Horne RN) 0453 (Given - Provider: Kimberly Horne RN) 0535 (Given - Provider: Dinora Singleton, KURTIS) methadone (DOLOPHINE) tablet 165 mg 165 mg, oral, Daily, First dose on Thu01/10/20 at 1600 0835 (Given - Provider: Edgardo Panda RN) 0823 (Given - Provider: Apoorva Adamson, KURTIS) 0939 (Given - Provider: Apoorva Adamson, RN) mirtazapine (REMERON) tablet 15 mg 15 mg, oral, Nightly, First dose on Thu01/10/20 at 2100 2017 (Given - Provider: Kimberly Horne RN) 2002 (Given - Provider: Dinora Singleton, KURTIS) pantoprazole DR (PROTONIX) extended release tablet 40 mg 40 mg, oral, Daily, First dose on Thu01/10/20 at 1700, Do not crush, chew, cut, dissolve, open or otherwise manipulate tablet/capsule., Indications: Treatment of Non-Bleeding Gastric Disorder 0835 (Given - Provider: Edgardo Panda RN) 0822 (Given - Provider: Apoorva Adamson RN) 0810 (Given - Provider: Apoorva Adamson, KURTIS) potassium chloride ER (KLOR-CON) extended release tablet 10 mEq 10 mEq, oral, Daily, First dose on Thu01/10/20 at 1700, Do not crush, chew, cut, dissolve, open or otherwise manipulate tablet/capsule. 0834 (Given - Provider: Edgardo Panda RN) 0823 (Given - Provider: Apoorva Adamson RN) 0810 (Given - Provider: Apoorva Adamson, KURTIS) predniSONE (DELTASONE) tablet 40 mg 40 mg, oral, Daily, First dose on Thu01/16/20 at 1900, For 5 doses 2002 (Given - Provider: Dinora Singleton, KURTIS) 0810 (Given - Provider: Apoorva Adamson, KURTIS) sertraline (ZOLOFT) tablet 100 mg 100 mg, oral, Daily, First dose on Thu01/10/20 at 1700 0835 (Given - Provider: Edgardo Panda RN) 0823 (Given - Provider: Apoorva Adamson, KURTIS) 0810 (Given - Provider: Apoorva Adamson, RN) sodium chloride 0.9% flush 0.5-20 mL 0.5-20 mL, intra-catheter, Every 8 hours, First dose on Thu01/13/20 at 0600, Flush volume based on line type and size. 0554 (Given - Provider: Kimberly Horne RN)1413 (Given - Provider: Edgardo Panda, RN)2018 (Given - Provider: Kimberly Horne RN) 0453 (Given - Provider: Kimberly Horne RN)1456 (Given - Provider: Apoorva Adamson, RN)2210 (Given - Provider: Dinora Singleton, RN) 0535 (Given - Provider: Dinora Singleton, KURTIS)1400 (Due) tamsulosin (FLOMAX) extended release capsule 0.4 mg 0.4 mg, oral, 2 times daily, First dose on Thu01/10/20 at 2100, Do not crush, chew, cut, dissolve, open or otherwise manipulate tablet/capsule. 0834 (Given - Provider: Edgardo Panda, KURTIS)2016 (Given - Provider: Kimberly Horne RN) 0822 (Given - Provider: Apoorva Adamson, KURTIS)2002 (Given - Provider: Dinora Singleton, KURTIS) 0810 (Given - Provider: Apoorva Adamson, KURTIS) PRN Medication Order 01/15/2020 01/16/2020 01/17/2020 acetaminophen (TYLENOL) tablet 650 mg 650 mg, oral, Every 4 hours PRN, 1st line for pain, Starting on Thu01/09/20 at 1716, Indications: Pain albuterol 2.5 mg /3 mL (0.083 %) nebulizer solution 2.5 mg 2.5 mg, nebulization, Every 4 hours PRN (respiratory technician), wheezing, Starting on Thu01/10/20 at 1446, This therapy was substituted for albuterol MDI per protocol., Indications: Dyspnea, Wheezing bisacodyl EC (DULCOLAX EC) tablet 10 mg 10 mg, oral, Daily PRN, constipation, If no results 24 hours after milk of magnesia, Starting on Thu01/10/20 at 1008, Do not crush, chew, cut, dissolve, open or otherwise manipulate tablet/capsule. clonazePAM (KlonoPIN) tablet 0.5 mg 0.5 mg, oral, 3 times daily PRN, anxiety, Starting on Thu01/10/20 at 1441 ipratropium-albuteroL (DUO-NEB) 0.5-2.5 mg/3 mL nebulizer solution 3 mL 3 mL, nebulization, Every 4 hours PRN (respiratory technician), wheezing, shortness of breath, Starting on Thu01/09/20 at 1755, Indications: Chronic Obstructive Pulmonary Disease with Bronchospasms magnesium hydroxide (MILK OF MAGNESIA) 80 mg/mL (33.3 mg/mL as elemental magnesium) oral suspension 30 mL 30 mL, oral, Daily PRN, constipation, Starting on Thu01/10/20 at 1008 mineral oil (FLEET MINERAL OIL) enema 1 enema 1 enema, rectal, Daily PRN, constipation, if no results 24 hours after bisacodyl, Starting on Thu01/10/20 at 1008, Indications: constipation ondansetron (ZOFRAN) injection 4 mg(Linked Group 1) 4 mg, intravenous, Administer over 2 Minutes, Every 6 hours PRN, nausea, vomiting, if not tolerating PO, Starting on Thu01/09/20 at 1716, Indications: Nausea and Vomiting ondansetron ODT (ZOFRAN-ODT) disintegrating tablet 4 mg(Linked Group 1) 4 mg, oral, Every 6 hours PRN, nausea, vomiting, Starting on Thu01/09/20 at 1716, Indications: Nausea and Vomiting sodium chloride 0.9% flush 0.5-20 mL 0.5-20 mL, intra-catheter, As needed, line care, Starting on Thu01/13/20 at 0009, Flush volume based on line type and size. Flush before and after each use. Linked Groups Order Group 1: ondansetron ODT (ZOFRAN-ODT) disintegrating tablet 4 mgJump to med 4 mg, oral, Every 6 hours PRN, nausea, vomiting, Starting on Thu01/09/20 at 1716, Indications: Nausea and Vomiting Or ondansetron (ZOFRAN) injection 4 mgJump to med 4 mg, intravenous, Administer over 2 Minutes, Every 6 hours PRN, nausea, vomiting, if not tolerating PO, Starting on 01/09/20 at 1716, Indications: Nausea and Vomiting documented in this encounter Orders Medications Ordered That Carloz ht Not Have Been Administered Count Last Ordered Date First Ordered Date guaiFENesin-dextromethorphan ER (MUCINEX DM) 600-30 mg per 12 hour tablet 2 tablet 1 01/16/2020 albuterol 2.5 mg /3 mL (0.08 3 %) nebulizer solution 2.5 mg 1 01/10/2020 albuterol HFA (PROVENTIL HFA ,VENTOLIN HFA,PROAIR HFA) 90 mcg/actuation inhaler 2 puff 1 01/10/2020 bisacodyl EC (DULCOLAX EC) tablet 10 mg 1 0 01/10/2020 budesonide-formoteroL (SYMBI MARILYN) 80-4.5 mcg/actuation inhaler 2 puff 1 01/10/2020 clonazePAM (KlonoPIN) tablet 0.5 mg 1 01/09 magnesium hydroxide (MILK OF MAGNESIA) 80 mg/mL (33.3 mg/mL as elemental magnesium) oral suspension 30 mL 1 01/10/2020 mineral oil (FLEET MINERAL O IL) enema 1 enema 1 01/10/2020 acetaminophen (TYLENOL) tablet 1,000 mg 1 0 01/09/2020 acetaminophen (TYLENOL) tablet 650 mg 1 cefTRIAXone (ROCEPHIN) 1,000 mg/10 mL in sterile water (premix) 1,000 mg 1 01/09/2020 dexAMETHasone (DECADRON) 4 m g/mL injection 6 mg 1 01/09/2020 ipratropium-albuteroL (DUO-N EB) 0.5-2.5 mg/3 mL nebulizer solution 3 mL 1 01/09/2020 ondansetron (ZOFRAN) injection 4 mg 1 01/08 ondansetron ODT (ZOFRAN-ODT) disintegrating tablet 4 mg 1 01/09/2020 sodium chloride 0.9% infusion 1 01/09/2020 Diet Count Last Ordered Date First Orde red Date ADULT DISCHARGE DIET 1 01/17/2020 Nursing Count Last Ordered Date First Orde red Date DISCHARGE ACTIVITY 1 01/17/2020 DISCHARGE CALL PROVIDER 2 01/17/2020 OTHER FOLLOW UP 1 01/17/2020 CARDIO RESPIRATORY MONITORING 1 01/09/2020 CONTINUOUS PULSE OXIMETRY 1 01/09/2020 NURSING COMMUNICATION 1 01/09/2020 STRICT INTAKE AND OUTPUT 1 01/09/2020 IV Count Last Ordered Date First Orde red Date SALINE LOCK IV 1 01/09/2020 CORE MEASURES Count Last Ordered Date First Ord ered Date REASON FOR NO VTE PROPHYLAXIS AT ADMISSION 1 01/09/2020 ADT Patient Update Count Last Ordered Date Firs t Ordered Date ED IP DECISION TO ADMIT 1 01/09/2020 documented in this encounter Additional Health Concerns Infection Onset Date Last Indicated Resolved Time COVID: Suspected 01/09/2020 01/09/2020 01/10/2020 6:02 AM CDT Respiratory Infection (TAMMY), contact + droplet Comment:Automatically added due to negative COVID-19 result. 01/10/2020 01/10/2020 01/10/2020 8:0 9 AM CDT documented as of this encounter Care Teams Life Sciences Manager Relationship Specialty Start Date End Date Miscellaneous, Not In File PCP - General 04/29/1805/13 documented as of this encounter
--- OUTSIDE RECORDS SUMMARY | 2024-05-31 23:31 | XMS_ITS | Encounter Summary ---
Author Organization [facility] Healthcare Address [address] [place] [address] Care Team Providers Care Shirt Bander Name Role Phone Geovanni Saunders BIOLOGICAL ENGINEER Primary Care Provider + Encounter Details Date Type Department Care Team (Latest Contact Info) Description 10/08/2017 10:54 AM CDT - 10/08/2017 11:59 PM CDT Hospital Encounter [facility] [address] [place] [address] Geovanni Saunders, JUANJOSE [address] [place] [id number] Krishna Rios MD [address] [place] [phone] Loss of weight Discharge Disposition: Discharge to home or self care Social History Tobacco Use Types Packs/Day Years Used Date Smoking Tobacco: Former Smokeless Tobacco: Never Alcohol Use Standard Drinks/Week Comments Yes 0 (1 standard drink = 0.6 oz pur e alcohol) Sex and Gender Information Value Date Recorded Sex Assigned at Not on file 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 Electronically signed by: Saravanan Tate M.D. Narrative 10/08/2017 11:39 AM CDT XR CHEST PA LATERAL 2 VIEWS HISTORY: Pulmonary emphysema. ??Weight loss. COMPARISON: 06/28/2017. FINDINGS: Heart size remains normal. ??Pulmonary emphysematous changes are again observed. ??The pulmonary vascular congestion seen previously has resolved. ??There is no pulmonary consolidation or pleural effusion. ??There are a few old granulomatous calcifications. Small amount of scarring is noted at the apices bilaterally. ??There is a mild to moderate hiatal hernia. Procedure Note Saravanan Tate MD - 10/08/2017 XR CHEST PA LATERAL 2 VIEWS HISTORY: Pulmonary emphysema. Weight loss. COMPARISON: 06/28/2017. FINDINGS: Heart size remains normal. Pulmonary emphysematous changes are again observed. The pulmonary vascular congestion seen previously has resolved. There is no pulmonary consolidation or pleural effusion. There are a few old granulomatous calcifications. Small amount of scarring is noted at the apices bilaterally. There is a mild to moderate hiatal hernia. IMPRESSION: NO ACTIVE DISEASE. Electronically signed by: Saravanan Tate M.D. Geovanni Saunders NP IMG XR PROCEDURES Final Result documented in this encounter Visit Diagnoses Diagnosis Loss of weight documented in this encounter Care Teams Shirt Bander Relationship Specialty Start Date End Date Geovanni Saunders, JUANJOSE [address] [place] [address] [address] [place] [address] PCP - General 01/02/17 04/28/18 documented as of this encounter
--- OUTSIDE RECORDS SUMMARY | 2024-05-31 23:31 | XMS_ITS | Encounter Summary ---
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 0 ibuprofen (ADVIL,MOTRIN) 800 mg tablet 07/10/2017 0 levothyroxine (SYNTHROID) 88 mcg tablet Take 88 mcg by mouth electrical wiring lineman before breakfast 0 levothyroxine (SYNTHROID, LEVOTHROID) 100 mcg tablet Take 88 mcg by mouth electrical wiring lineman before breakfast 04/12/2018 0 methadone (DOLOPHINE) 10 [...] on filedocumented in this encounter Care Teams Real Estate Attorney Relationship Specialty Start Date End Date Miscellaneous, Not In File PCP - General 04/29/1805/13 documented as of this encounter
--- OUTSIDE RECORDS SUMMARY | 2024-05-31 23:31 | XMS_ITS | Encounter Summary ---
Author Organization [facility] Healthcare Address [address] [place] [address] Care Team Providers Care Shoe Sticks Repairer Name Role Phone Geovanni Saunders PARTY DEMONSTRATOR Primary Care Provider + Encounter Details Date Type Department Care Team (Late st Contact Info) Description 11/24/2017 9:52 AM CDT Anesthesia Event [address] [address] [place] [id number] [address] Anesthesia Record Procedure Summary Procedure Name Responsible Anesthesiologist Anesthesia Start Time Anesthesia Stop Time COLON BIOPSY Kelsi Smart MD 11/24/17 0952 0 11/24/17 1024 Events Date Time Event Comment 11/24/2017 0921 0948 In Room 0952 An Start 0952 An Start Data 0953 Start Supplemental O2 0953 Patient Positioned Laterally 1003 An Induction The patient was reevaluated immediately before moderate or deep sedation use and before anesthesia induction. 1004 Anesthesia Ready 1023 an stop data 1024 Handoff to RN I completed my handoff [...] disposition at the time of handoff: PACU 1024 An Stop 1025 Release from care 1029 Out of Room Meds Name Total lidocaine (cardiac) syringe 2 % 60 mg propofol 240 mg sodium chloride 0.9% infusion 800 mL * Agents Name O2 * Blood No blood administrations on file. Lines, Drains, and Airways Type Details Placement Removal Peripheral IV Placement Date: 08/09; Placement Time: 0855; Catheter Size: 22 G; Orientation: Right; Location: Forearm; Site Prep: Chlorhexidine; Technique: Anatomical landmarks; Inserted by: Talia Purcell; Insertion Attempts: 2; Patient Tolerance: Tolerated well; Removal Date: 11/24/17; Removal Time: 1100; Removal Reason: Therapy completed 11/24/17 0855 by Kaleigh Bueno RN 11/24/17 1100 by Kaleigh Bueno RN documented in this encounter Social History Tobacco Use Types Packs/Day Years Used Date Smoking Tobacco: Former Smokeless Tobacco: Never Alcohol Use Standard Drinks/Week Comments Yes 0 (1 standard drink = 0.6 oz pur e alcohol) Sex and Gender Information Value Date Recorded Sex Assigned at Not on file 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 Gender Identity Not on file Sexual Orientation Not on file documented as of this encounter OR Notes * Anesthesia Postprocedure Evaluation - Zakia Bennett CRNA - 11/24/2017 10:25 AM CDT Patient: Saravanan Lanza Procedure Summary Date: 11/24/17 Room / Location: [facility] / [facility] Anesthesia Start: 951 Anesthesia Stop: 1023 Procedures: Colonoscopy (N/A ) Esophagogastroduodenoscopy (N/A ) Diagnosis: (colonoscopy EGD unexplained wt loss) Provider: Dewayne Alaniz MD Responsible Provider: Kelsi Smart MD Anesthesia Type: general/TIVA ASA Status: 3 Anesthesia Type: general/TIVA Last vitals BP 114/71 (11/24/17 1024) Temp Pulse 74 (11/24/17 1024) Resp 13 (11/24/17 1024) SpO2 100 % (11/24/17 1024) Anesthesia Post Evaluation Patient location during evaluation: PACU Patient participation: complete - patient participated 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 male Procedure(s): Colonoscopy Esophagogastroduodenoscopy HISTORY Past Medical History Neurological + Psychiatric history - depression Respiratory + COPD Musculoskeletal/Pain + Chronic pain + Chronic opioid use + Osteoarthritis Review of Systems + chronic pain Patient Active Problem List Diagnosis ??? Closed fracture of right inferior pubic ramus (CMS/HCC) ??? Closed fracture of right superior pubic ramus (CMS/HCC) ??? Calculus of urinary bladder ??? Unspecified urinary incontinence Past Medical History: Diagnosis Date ??? Depression ??? Emphysema of lung (CMS/HCC) ??? Infectious viral hepatitis ??? Kidney stone ??? Melena Past Surgical History: Procedure Laterality Date ??? COLONOSCOPY 2009 Allergies Allergen Reactions ??? Narcan [Naloxone] Other (See comments) Patient indicating he cannot have narcan no matter what (methodone prescription) HOME MEDICATIONS : albuterol HFA (PROVENTIL HFA,VENTOLIN HFA) 90 mcg/actuation inhaler ALPRAZolam (XANAX) 1 mg tablet BREO ELLIPTA 200-25 mcg/dose diskus inhaler clonazePAM (KlonoPIN) 0.5 mg tablet ferrous sulfate 325 mg (65 mg of elemental iron) tablet methadone (DOLOPHINE) 10 mg tablet omeprazole (PriLOSEC) 20 mg capsule pediatric multivitamin-iron tablet,chewable sertraline (ZOLOFT) 50 mg tablet tamsulosin (FLOMAX) 0.4 mg capsule,extended release 24hr tiZANidine (ZANAFLEX) 4 mg tablet traZODone (DESYREL) 50 mg tablet ibuprofen (ADVIL,MOTRIN) 800 mg tablet amoxicillin-clavulanate (AUGMENTIN) 875-125 mg per tablet cetirizine (ZyrTEC) 10 mg tablet finasteride (PROSCAR) 5 mg tablet HYDROcodone-acetaminophen (NORCO) 5-325 mg per tablet mometasone (ASMANEX HFA) 200 mcg/actuation HFA aerosol inhaler Current Facility-Administered Medications: ??? ondansetron (ZOFRAN) injection 4 mg, 4 mg, intravenous, Q30 Min PRN ??? sodium chloride 0.9% infusion, 30 mL/hr, intravenous, Continuous ??? sodium chloride 0.9% infusion, 125 mL/hr, intravenous, Continuous, Last Rate: 125 mL/hr at 11/24/17 0902, 125 mL/hr at 11/24/17 09 Social History Smoking Status ??? Former Smoker Smokeless Tobacco ??? Never Used Alcohol Use ??? Yes Drug use: Unknown History reviewed. No pertinent family history. PAT Physical Exam Vitals: 11/24/17 0832 BP: 107/69 Pulse: 75 Resp: 18 Temp: 37.4 ??C (99.4 ??F) SpO2: 94% PT: No results found for requested labs [...] for requested labs within last 720 hours. STOP-Bang Total Score: 2 DOS Physical Exam Medical history, medications, and allergies reviewed. Attestation: This PAT evaluation 11/24/2017. Airway Exam: Mallampati: II Cervical ROM: FROM TM distance: >4 Jaw ROM: full Cardiovascular Exam: Rate: regular Rhythm: regular Pulmonary Exam: LCTA, bilat Current state: Patient's current state is cooperative. Anesthesia Plan ASA 3 My patient is approved for the Anesthesia Controlled Medication protocol when under care of a AREA OPERATIONS DIRECTOR Planned anesthesia: General/TIVA Induction: Induction: intravenous. Informed Consent: Discussed plan with AREA OPERATIONS DIRECTOR. Anesthesia plan and risks discussed with patient. Consent and Attending signature: I and/or my designee have discussed the anesthesia plan, benefits, possible alternatives, parental presence at time of induction (if indicated), and clinically relevant risks that may include dental injury, unintentional awareness, and/or other complications. The patient and/or parent/legal guardian understand, and agree to proceed. All questions answered. documented in this encounter Plan of Treatment Not on file documented as of this encounter Visit Diagnoses Not on filedocumented in this encounter Administered Medications Inactive Administered Medications - up to 3 most recent administrations Medication Order MAR Action Action Date Dose Rate Site lidocaine (cardiac) (XYLOCAINE) preservative free injection intravenous, As needed, Starting on Thu11/24/17 at 1003, Anesthesia Intra-op, Indications: Ventricular ArrhythmiasIndications:Ventricular Arrhythmias Given 11/24/2017 10:03 AM CDT 60 mg propofol (DIPRIVAN) IV intravenous, As needed, Starting on Thu11/24/17 at 1003, Anesthesia Intra-op Given 11/24/2017 10:20 AM CDT 40 mg Given 11/24/2017 10:14 AM CDT 20 mg Given 11/24/2017 10:10 AM CDT 40 mg sodium chloride 0.9% infusion 125 mL/hr, intravenous, Continuous, Starting on Thu11/24/17 at 0900, Recovery (GI) New Bag 11/24/2017 9:52 AM CDT New Bag 11/24/2017 9:02 AM CDT 125 mL/hr 125 mL/hr documented in this encounter Care Teams Shoe Sticks Repairer Relationship Specialty Start Date End Date Geovanni Saunders NP [address] [place] [address] [address] [place] [id number] PCP - General 01/02/17 04/28/18 documented as of this encounter
--- OUTSIDE RECORDS SUMMARY | 2024-05-31 23:31 | XMS_ITS | Encounter Summary ---
Author Organization [facility] Healthcare Address [address] [place] [address] Care Team Providers Care Joint Terminal Attack Controller Name Role Phone Miscellaneous, Not In File Primary Care Provider Unavailable Reason for Visit * Reason Comments Groin Pain Encounter Details Date Type Department Care Team (Late st Contact Info) Description 04/05/2019 2:43 PM 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 - 04/05/2019 3:10 PM 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 Emergency [facility] Emergency Department [address] [place] [address] Abdominal muscle pain (Primary Dx) Discharge Disposition: Discharge to home or self care Social History Tobacco Use Types Packs/Day Years Used Date Smoking Tobacco: Former Smokeless Tobacco: Never Alcohol Use Standard Drinks/Week Comments Yes 0 (1 standard drink = 0.6 oz pur e alcohol) Sex and Gender Information Value Date Recorded Sex Assigned at Not on file Legal Sex Male 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 Gender Identity Not on file Sexual Orientation Not on file documented as of this encounter Last Filed Vital Signs Vital Sign Reading Time Taken Comments Blood Pressure 123/76 04/05/2019 2:55 PM 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 Pulse 72 04/05/2019 2:55 PM 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 Temperature 36.9 ??C (98.5 ??F) 04/05/2019 2:55 PM CS T Respiratory Rate 18 04/05/2019 2:55 PM 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 Oxygen Saturation 93% 04/05/2019 2:55 PM 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 Inhaled Oxygen Concentration - - Weight 68 kg (150 lb) 04/05/2019 2:54 PM 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 Height 177.8 cm (5' 10 ) 04/05/2019 2:54 PM 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 Body Mass Index 21.52 04/05/2019 2:54 PM 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 documented in this encounter Discharge Diagnoses Diagnosis Myalgia, other site - MYALGIA, OTHER SITE Emphysema, unspecified (HCC) - EMPHYSEMA, UNSPECIFIED Major depressive disorder, single episode, unspecified - MAJOR DEPRESSIVE DISORDER, SINGLE EPISODE, UNSPECIFIED Personal history of urinary calculi - PERSONAL HISTORY OF URINARY CALCULI Unspecified viral hepatitis without hepatic coma - UNSPECIFIED VIRAL HEPATITIS WITHOUT HEPATIC COMA Personal history of nicotine dependence - PERSONAL HISTORY OF NICOTINE DEPENDENCE documented in this encounter Discharge Instructions * Discharge Instructions* Margot Woodruff NP - 04/05/2019 3:04 PM 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 Use over the counter Tylenol and Motrin per manufacturers guidelines for relief of pain and fever. Do not drive while taking Baclofen as it may cause drowsiness MODYNAMICIST MODYNAMICIST * Attachments The following attachments cannot be sent through Care Everywhere. * Myalgias (Tristanian) documented in this encounter Medications at Time of Discharge albuterol HFA (PROVENTIL HFA,VENTOLIN HFA) 90 mcg/actuation inhaler Inhale 2 puffs every 4 (four) hours as needed baclofen (LIORESAL) 10 mg tablet Take 1 tablet (10 mg total) by mouth 3 (three) times a day for 15 days 45 tablet 04/05/2019 BREO ELLIPTA 200-25 mcg/dose diskus inhaler Inhale [...] mcg tablet Take 88 mcg by mouth head of history before breakfast 04/12/2018 0 methadone (DOLOPHINE) 10 mg tablet Take 140 mg by mouth, 0 pediatric multivitamin-iro n tablet,chewable Take by mouth. 01/09 0 raNITIdine (ZANTAC) 300 mg tablet 04/12/2018 0 traZODone (DESYREL) 50 mg tablet Take 50 mg by mouth nightly. 0 documented as of this encounter Ordered Prescriptions Prescription Sig Dispense Quantity Refills Last Filled Start Date End Date baclofen (LIORESAL) 10 mg tablet Take 1 tablet (10 mg total) by mouth 3 (three) times a day for 15 days 45 tablet 04/05/2019 documented in this encounter Discharge Disposition Disposition Code Departure Means Destination Comment s Discharge to home or self care ERNP discussed d/c with pt. Pt verbalized understanding. Pt had no questions. Pt ambulated out of the ED documented in this encounter ED Notes * Margot Woodruff, JUANJOSE - 04/05/2019 2:57 PM CST Images from the original note were not included. HPI Chief Complaint Patient presents with ??? Groin Pain 63 y.o. year old male with PMHX Depression Emphysema of lung (CMS/HCC) Infectious viral hepatitis Kidney stone Melena; accompanied by self presents to ED with c/o Groin Pain Denies fever, chills, nausea, vomiting, diarrhea, SOB, CP, numbness, tingling. Pt was lifting boxes last night when pain in right lower abdomen started. Pt has not taken OTC medication for relief of pain. Pt is able to ambulate without assistance. Denies other complaint at thistime. Patient History Patient Active Problem List Diagnosis [...] Former Smoker ??? Smokeless tobacco: Never Used Substance Use Topics ??? Alcohol use: Yes ??? Drug use: Not on file Social History Patient does not qualify to have social determinant information on file (likely too young). Social History Narrative ??? Not on file Review of Systems Review of Systems Constitutional: Negative. Negative for chills and fever. HENT: Negative. Negative for ear pain and sore throat. Eyes: Negative. Negative for pain and visual disturbance. Respiratory: Negative. Negative for cough and shortness of breath. Cardiovascular: Negative. Negative for chest pain and palpitations. Gastrointestinal: Positive for abdominal pain. Negative for vomiting. Genitourinary: Negative. Negative for dysuria and hematuria. Musculoskeletal: Negative. Negative for arthralgias and back pain. Skin: Negative. Negative for color change and rash. Neurological: Negative. Negative for seizures and syncope. Psychiatric/Behavioral: Negative. All other systems reviewed and are negative. Physical Exam ED Triage Vitals [04/05/19 1455] Temp Pulse Resp BP SpO2 36.9 ??C (98.5 ??F) 72 18 123/76 93 % Temp src Heart Rate Source Patient Position BP Location FiO2 (%) Oral -- -- -- -- Physical Exam Vitals signs and nursing note reviewed. Constitutional: General: He is awake. He is not in acute distress. Appearance: Normal appearance. He is well-developed. Interventions: He is not intubated. HENT: Head: Normocephalic and atraumatic. Eyes: General: Lids are normal. Conjunctiva/sclera: Conjunctivae normal. Neck: Musculoskeletal: Full passive range of motion without pain, normal range of motion and neck supple. Cardiovascular: Rate and Rhythm: Normal rate and regular rhythm. Chest Wall: PMI is not displaced. No thrill. Pulses: Normal pulses. No decreased pulses. Heart sounds: Normal heart sounds. No murmur. Pulmonary: Effort: Pulmonary effort is normal. No tachypnea, bradypnea, accessory muscle usage, prolonged expiration, respiratory distress or retractions. He is not intubated. Breath sounds: Normal breath sounds and air entry. No stridor, decreased air movement or transmitted upper airway sounds. No decreased breath sounds, wheezing, rhonchi or rales. Abdominal: Palpations: Abdomen is soft. Tenderness: There is tenderness in the right lower quadrant. There is no right CVA tenderness, leftCVA tenderness or rebound. Negative signs include Flores's sign, McBurney's sign, psoas sign and obturator sign. Comments: No rebound or guarding Lymphadenopathy: Cervical: No cervical adenopathy. Skin: General: Skin is warm and dry. Capillary Refill: Capillary refill takes less than 2 seconds. Neurological: Mental Status: He is alert, oriented to person, place, and time and easily aroused. Psychiatric: Attention and Perception: Attention normal. Mood and Affect: Mood normal. Speech: Speech normal. Behavior: Behavior normal. Behavior is cooperative. Thought Content: Thought content normal. Cognition and Memory: Cognition normal. Judgment: Judgment normal. [facility] ED Course as of Apr 05 1504 Time: 04/05 1457 Comment: Discussed with pt benefits of stop smoking and encouraged to stop smoking. Pt was counseled on smoking sensation. By: Margot Woodruff NP Abdominal muscle pain Margot Woodruff NP 04/05/19 1504 Cosigned by Geovanni Lopez MD at 04/05/2019 7:57 PM 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 MODYNAMICIST MODYNAMICIST Associated attestation - Geovanni Lopez MD - 04/05/2019 7:57 PM 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 ED Attestation Based on the medical record the care appears appropriate. * Rebekah Tenorio RN - 04/05/2019 2:52 PM CST Pt presents to the ED from home. Pt states he pulled his right groin last night MODYNAMICIST documented in this encounter Plan of Treatment Not on file documented as of this encounter Visit Diagnoses Diagnosis Abdominal muscle pain- Primary documented in this encounter Discontinued Medications Medication Sig Discontinue Reason Start Date End Da te tiZANidine (ZANAFLEX) 4 mg tablet Take 4 mg by mouth. 04/05/2019 documented as of this encounter Care Teams Joint Terminal Attack Controller Relationship Specialty Start Date End Date Miscellaneous, Not In File PCP - General 04/29/1805/13 documented as of this encounter
--- OUTSIDE RECORDS SUMMARY | 2024-05-31 23:31 | XMS_ITS | Encounter Summary ---
Author Organization [facility] Healthcare Address [address] [place] [address] Care Team Providers Care Solder Sprayer Name Role Phone Geovanni Saunders NUCLEAR FUELS RESEARCH ENGINEER Primary Care Provider + Encounter Details Date Type Department Care Team (Latest Contact Info) Description 11/24/2017 8:13 AM CDT - 11/24/2017 11:25 AM CDT Hospital Encounter [facility] [address] [place] [address] Dewayne Alaniz MD [address] [place] [id number] Weight loss Discharge Disposition: Discharge to home or self care Social History Tobacco Use Types Packs/Day Years Used Date Smoking Tobacco: Former Smokeless Tobacco: Never Alcohol Use Standard Drinks/Week Comments Yes 0 (1 standard drink = 0.6 oz pur e alcohol) Sex and Gender Information Value Date Recorded Sex Assigned at Not on file Legal Sex Male 11:14 AM INFRASTRUCTURE ARCHITECT Gender Identity Not on file Sexual Orientation Not on file documented as of this encounter Last Filed Vital Signs Vital Sign Reading Time Taken Comments Blood Pressure 123/71 11/24/2017 11:00 AM CDT Pulse 68 11/24/2017 11:00 AM CDT Temperature 37.1 ??C (98.8 ??F) 11/24/2017 11:00 AM C DT Respiratory Rate 18 11/24/2017 11:00 AM CDT Oxygen Saturation 98% 11/24/2017 11:00 AM CDT Inhaled Oxygen Concentration - - [...] - 11/24/2017 9:43 AM CDTAssociated Order(s): EGD [facility] Patient Name: Christal Lanza Procedure Date: 11/24/2017 9:43 AM Date of : 1955 Admit Type: Outpatient Age: 62 Gender: Male Attending MD: Dewayne Alaniz MD Room: [facility] Note Status: Finalized Patient Profile: [...] passed under direct vision. The Endoscope GIF-H190 [id number] was introduced through the mouth, and advanced [...] 9:43 AM Procedure Code(s): --- Professional --- 34345, Esophagogastroduodenoscopy, flexible, transoral; with biopsy, single or multiple Diagnosis Code(s): --- Professional --- K31.89, Other diseases of stomach and duodenum K22.8, Other specified diseases of esophagus R63.4, Abnormal weight loss R19.7, Diarrhea, unspecified CPT copyright 2017 [employer]. All rights reserved. The codes documented in this report are preliminary and upon allergy nurse review may be revised to meet current compliance requirements. Recognized by the [employer] for promoting quality in endoscopy * Dewayne Alaniz MD - 11/24/2017 9:42 AM CDTAssociated Order(s): COLONOSCOPY [facility] Patient Name: Christal Lanza Procedure Date: 11/24/2017 9:42 AM Date of : 1955 Admit Type: Outpatient Age: 62 Gender: Male Attending MD: Dewayne Alaniz MD Room: [facility] Note Status: Finalized Patient Profile: 62 WM with unexplained weight loss, and abnormal stool/diarrhea, no family h/o colon cancer. Procedure: Colonoscopy Indications: Last colonoscopy: November 2008, Clinically significant diarrhea of unexplained origin, Weight loss Referring MD: Geovanni Saudners NP Providers: Dewayne Alaniz MD Impression: - [...] under direct vision. The Pediatric Colonoscope PCF-H190L [id number] was introduced through the anus and advanced [...] 9:42 AM Procedure Code(s): --- Professional --- 12385, Colonoscopy, flexible; with biopsy, single or multiple Diagnosis Code(s): --- Professional --- K64.8, Other hemorrhoids R63.4, Abnormal weight loss R19.7, Diarrhea, unspecified CPT copyright 2017 [employer]. All rights reserved. The codes documented in this report are preliminary and upon allergy nurse review may be revised to meet current compliance requirements. Recognized by the [employer] for promoting quality [...] PM CDT Narrative 11/30/2017 12:24 PM CDT [facility] results best viewed via link to PDF [facility] Department of Pathology [address] [place] [address] Final Report Patient Name: ??CHRISTAL LANZA Address: ??[address] [place] [address], ??[place], [place] [address] Gender: ??M : ??1955 (Age: 62) Service: ??Gastro Location: ??[facility] #: ??[id number] Patient Type: ??[facility] Accession # ?[id number] Taken: ??11/24/2017 Received: ??11/24/2017 Accessioned: ??11/24/2017 Reported: [...] is received in 4 parts labeled Christal Crabtreeer . A. ??The first part is labeled [...] ??Entirely submitted in D. ??Silvestre Reich MD/Catalina Long, P.A. REPORT IMAGES AND SCANNED DOCUMENTS, IF INCLUDED, ONLY VIEWABLE IN PDF VERSION OF REPORT The performance characteristics of some immunohistochemical stains, fluorescence in-situ hybridization tests and immunophenotyping by flow cytometry cited in this report (if any) were determined by the Surgical Pathology Department at [facility] as part of an ongoing quality lab technician program and in compliance with federally [...] characteristics determined by the Surgical Pathology Department [facility]. ??It has not been cleared or approved by the U. S. Food and Drug Administration. Dewayne Alaniz MD LAB PATHOLOGY ORDERABLES F inal Result * H. pylori urease screen (OMARI test) Biopsy Gastric/Stomach biopsy (11/24/2017 10:10 AM CDT) Report Final Report: Negative Omari Test [facility] ([place]) Biopsy (Gastric/Stomach biopsy) 11/24/2017 10:10 AM CDT 11/25/2017 1:34 AM CDT Narrative [facility] ([place]) - 11/25/2017 10:34 AM CDT us Dewayne Alaniz MD LAB MICROBIOLOGY - GENERAL ORDERABLES Final Result [facility] ([place]) [address] [facility] [place] [address] * EGD (11/24/2017 9:43 AM CDT) Anatomical Region Laterality Modality Other Narrative Procedure Note Dewayne Alaniz MD - 11/24/2017 9:43 AM CDT [facility] Patient Name: Christal Lanza Procedure Date: 11/24/2017 9:43 AM Date of : 1955 Admit Type: Outpatient Age: 62 Gender: Male Attending MD: Dewayne Alaniz MD Room: [facility] Note Status: Finalized Patient Profile: 62 WM with unexplained weight loss, and abnormal stool/diarrhea Procedure: Upper GI endoscopy Indications: Diarrhea, Weight loss Referring MD: Geovanni Saunders, NUCLEAR FUELS RESEARCH ENGINEER Providers: Dewayne Alaniz MD Impression: - Normal [...] was passed under direct vision.The Endoscope GIF-H190 [id number] was introduced throughthe mouth, and advanced to [...] 9:43 AM Procedure Code(s): --- Professional --- 23338, Esophagogastroduodenoscopy, flexible, transoral; with biopsy, single or multiple Diagnosis Code(s): --- Professional --- K31.89, Other diseases of stomach and duodenum K22.8, Other specified diseases of esophagus R63.4, Abnormal weight loss R19.7, Diarrhea, unspecified CPT copyright 2017 [employer]. All rights reserved. The codes documented in this report are preliminary and upon allergy nurse reviewmay be revised to meet current compliance requirements. Recognized by the [employer] for promoting quality in endoscopy Dewayne Alaniz MD ENDOSCOPY PROCEDURES Final Result * COLONOSCOPY (11/24/2017 9:42 AM CDT) Anatomical Region Laterality Modality Other Narrative Procedure Note Dewayne Alaniz MD - 11/24/2017 9:42 AM CDT [facility] Patient Name: Christal Lanza Procedure Date: 11/24/2017 9:42 AM Date of : 1955 Admit Type: Outpatient Age: 62 Gender: Male Attending MD: Dewayne Alaniz MD Room: [facility] Note Status: Finalized Patient Profile: 62 WM with unexplained weight loss, and abnormal stool/diarrhea, no family h/o colon cancer. Procedure: Colonoscopy Indications: Last colonoscopy: November 2008, Clinically significant diarrhea of unexplained origin, Weight loss Referring MD: Geovanni Saunders, NUCLEAR FUELS RESEARCH ENGINEER Providers: Dewayne Alaniz MD Impression: - The [...] passed under direct vision.The Pediatric Colonoscope PCF-H190L [id number] was introduced through the anus and advanced [...] 9:42 AM Procedure Code(s): --- Professional --- 34939, Colonoscopy, flexible; with biopsy, single or multiple Diagnosis Code(s): --- Professional --- K64.8, Other hemorrhoids R63.4, Abnormal weight loss R19.7, Diarrhea, unspecified CPT copyright 2017 [employer]. All rights reserved. The codes documented in this report are preliminary and upon allergy nurse reviewmay be revised to meet current compliance requirements. Recognized by the [employer] for promoting quality in endoscopy Dewayne Alaniz MD ENDOSCOPY PROCEDURES Final Result documented in this encounter Visit Diagnoses Diagnosis Weight loss Loss of weight documented in this encounter Administered Medications Inactive [...] 11/24/2017 documented in this encounter Care Teams Solder Sprayer Relationship Specialty Start Date End Date Geovanni Saunders NP [address] [place] [address] [address] [place] [address] PCP - General 01/02/17 04/28/18 documented as of this encounter
--- OUTSIDE RECORDS SUMMARY | 2024-05-31 23:31 | XMS_ITS | Encounter Summary ---
Author Organization [facility] Group Address [address] [place] [address] Care Team Providers Care Plastic Frame Inserter Name Role Phone Geovanni Saunders NP Primary Care Provider + Reason for Visit * Reason Comments Pain Encounter Details Date Type Department Care Team (Late st Contact Info) Description 06/16/2017 1:00 PM CHIEF RISK OFFICER Office Visit [facility] Medical [facility] [address] [facility] [address] [place] [phone] Patricio Grimm MD [address] [facility] [address] [place] [address] Closed fracture of right inferior pubic ramus, initial encounter ([facility]) (Primary Dx); Closed fracture of right superior pubic ramus, initial encounter ([facility]) Social History Tobacco Use Types Packs/Day Years Used Date Smoking Tobacco: Every Day Smokeless Tobacco: Never Alcohol Use Standard Drinks/Week Comments Yes 0 (1 standard drink = 0.6 oz pur e alcohol) Sex and Gender Information Value Date Recorded Sex Assigned at Not on file Legal Sex Male 11:14 AM CHIEF RISK OFFICER Gender Identity Not on file Sexual Orientation Not on file documented as of this encounter Last Filed Vital Signs Vital Sign Reading Time Taken Comments Blood Pressure 128/87 06/16/2017 2:04 PM CHIEF RISK OFFICER Pulse 80 06/16/2017 2:04 PM CHIEF RISK OFFICER Temperature - - Respiratory Rate - - Oxygen Saturation - - Inhaled Oxygen Concentration - - Weight 73.9 kg (163 lb) 06/16/2017 2:04 PM CHIEF RISK OFFICER Height 177.8 cm (5' 10 ) 06/16/2017 2:04 PM CHIEF RISK OFFICER Body Mass Index 23.39 06/16/2017 2:04 PM CHIEF RISK OFFICER documented in this encounter Progress Notes * Patricio Grimm MD - 06/16/2017 1:00 PM CST Images from the original note were not included. NEW PATIENT VISIT Subjective CHIEF COMPLAINT He had concerns including Pain of the Pelvis. HISTORY OF PRESENT ILLINESS Mr. Lanza is a 61 year old gentleman who presents to clinic in follow up from his PCP for right superior and inferior pubic rami fractures. On June 05, he reports falling off a two step step ladder while attempting to install a cabinet, landing on his buttock. His PCP ordered x-rays, which revealed fractures of the right superior and inferior pubic rami. Our office was contacted and a CT was recommended for further evaluation of the posterior pelvic ring. He has been protected weightbearing with the use of a cane since the time of his injury and localizes the majority of his pain posteriorly, across his buttocks. He is currently on methadone, but this has provided no relief of his discomfort. His PCP prescribed him with [place] L[place] 5/325mg, which he primarily takes at night with relief. He denies any loss of consciousness or other injury at this time. Pain Assessment Pain Assessment: 0-10 Pain Score: 5 - Moderate pain PAST MEDICAL HISTORY He has a past medical history of Depression; Emphysema of lung (CMS/HCC); Infectious viral hepatitis; and Kidney stone. PAST SURGICAL HISTORY He has no past surgical history on file. MEDICATIONS He has a current medication list which includes the following prescription(s): albuterol hfa, alprazolam, amoxicillin-clavulanate, cetirizine, hydrocodone- acetaminophen, methadone, mometasone, pediatric multivitamin-iron, tamsulosin, and tizanidine. ALLERGIES He has No Known Allergies. SOCIAL HISTORY He reports that he has been smoking. He has never used smokeless tobacco. He reports that he drinksalcohol. FAMILY HISTORY His family history is not on file. REVIEW OF SYSTEMS Review of Systems Constitutional: [...] is not hyperactive. Objective PHYSICAL EXAM BP 128/87 (BP Location: Left arm, Patient Position: Sitting) Pulse 80 Ht 177.8 cm (5' 10 ) Wt73.9 kg (163 lb) BMI 23.39 kg/m?? Right hip Inspection Erythema: absent Edema: absent Swelling: absent Effusion: absent Skin temperature: normal Surgical scar/wound: absent. Gait: antalgic Limp: moderate Supportive device: long cane Palpation Tenderness: present. Range of motion The patient has reduced range of motion of the right hip. The patient has pain with range of motion of the right hip. Stability The patient has normal stabiltiy of the right hip. Neurovascular The patient has normal vascular on the right side of their body. The patient has normal sensation. REVIEW OF X-RAYS/STUDIES/LABS right superior and inferior pubic rami fractures with mild displacement CT scan was reviewed and shows the same fractures without evidence of posterior injury. Assessment/Plan Saravanan was seen today for pain. Diagnoses and all orders for this visit: Closed fracture of right inferior pubic ramus, initial encounter ([facility]) Closed fracture of right superior pubic ramus, initial encounter ([facility]) Plan This is a stable lateral compression type 2 injury and the patient may weightbear as tolerated withassistance. He may his advance his activity as tolerated over time. We will see him back in 6-8 weeks for a final visit with repeat x-rays. Patricio Grimm MD F RISK OFFICER documented in this encounter Plan of Treatment Not on file documented as of this encounter Visit Diagnoses Diagnosis Closed fracture of right inferior pubic ramus, initial encounter ([facility])- Primary Closed fracture of right superior pubic ramus, initial encounter documented in this encounter Historical Medications * This list may reflect changes made after this encounter. tamsulosin (FLOMAX) 0.4 mg capsule,extended release 24hr Take 0.4 mg by mouth 2 (two) times a day albuterol HFA (PROVENTIL HFA,VENTOLIN HFA) 90 mcg/actuation inhaler Inhale 2 puffs every 4 (four) hours as needed tiZANidine (ZANAFLEX) 4 mg tablet Take 4 mg by mouth. 04/05/2019 pediatric multivitamin-iron tablet,chewable Take by mouth. 01/10/2020 methadone (DOLOPHINE) 10 mg tablet Take 140 mg by mouth, 01/10/2020 HYDROcodone-aceta minophen (NORCO) 5-325 mg per tabletIndications :Pain 0 06/12/2017 11/24/2017 cetirizine (ZyrTEC) 10 mg tablet Take 10 mg by mouth. 11/24/2017 mometasone (ASMANEX HFA) 200 mcg/actuation HFA aerosol inhaler 05/28/2016 8 amoxicillin-clavu lanate (AUGMENTIN) 875-125 mg per tablet 06/19/2016 11/24/2017 ALPRAZolam (XANAX) 1 mg tablet 3 06/10/2017 01/10/2020 added in this encounter Care Teams Plastic Frame Inserter Relationship Specialty Start Date End Date Geovanni Saunders NP [address] [place] [address] [address] [place] [address] PCP - General 01/02/17 04/28/18 documented as of this encounter
--- OUTSIDE RECORDS SUMMARY | 2024-05-31 23:31 | XMS_ITS | Encounter Summary ---
Author Organization [facility] Healthcare Address [address] [place] [address] Care Team Providers Care Collection Manager Name Role Phone Geovanni Saunders GRAIN UNLOADER MACHINE Primary Care Provider + Encounter Details Date Type Department Care Team (Latest Contact Info) Description 05/29/2017 9:18 AM RESPIRATORY THERAPY ASSISTANT - 05/29/2017 11:59 PM RESPIRATORY THERAPY ASSISTANT Hospital Encounter [facility] [address] [place] [address] Patricio Hernadez PA [address] [address] Chronic hepatitis C with hepatic coma (CMS/HCC) Discharge Disposition: Discharge to home or self care Social History Tobacco Use Types Packs/Day Years Used Date Smoking Tobacco: Never Assessed Sex and Gender Information Value Date Recorded Sex Assigned at Not on file Legal Sex Male 11:14 AM RESPIRATORY THERAPY ASSISTANT Gender Identity Not on file Sexual Orientation Not on file documented as of this encounter Medications at Time of Discharge Medication Sig Dispense Quantity Refills Last Filled Start D ate End Date amoxicillin-clavulana te (AUGMENTIN) 875-125 mg per tablet 06/19/201607/2017 mometasone (ASMANEX HFA) 200 mcg/actuation HFA aerosol inhaler 05/28/2016 8 documented as of this encounter Discharge Disposition Disposition Code Departure Means Destination Discharge to home or self care documented in this encounter Plan of Treatment Not on file documented as of this encounter Procedures Procedure Name Priority Date/Time Associated Diagnosis Comments US LIVER Schedule Routine, Read Routine (OP Routine) 05/29/2017 10:26 AM RESPIRATORY THERAPY ASSISTANT Chronic hepatitis C with hepatic coma (CMS/HCC) documented in this encounter Results * US Liver (05/29/2017 10:26 AM RESPIRATORY THERAPY ASSISTANT) Anatomical Region Laterality Modality Abdomen N/A Ultrasound Impressions 05/29/2017 10:41 AM RESPIRATORY THERAPY ASSISTANT 1. ??SIGNIFICANT EXTRAHEPATIC BILIARY DUCTAL DILATATION. 2. ??POORLY VISUALIZED RETROPERITONEAL STRUCTURES DUE TO BOWEL GAS. Electronically signed by: Nikos Mead M.D. Narrative 05/29/2017 10:41 AM RESPIRATORY THERAPY ASSISTANT US LIVER HISTORY: Chronic viral hepatitis C. Hepatic coma. COMPARISON: None available. FINDINGS: The liver demonstrates normal size and echogenicity with no evidence of mass. ??The gallbladder is normal. ??There is significant extrahepatic biliary ductal dilatation at 19 mm. ??The intra-pancreatic portion of the bile duct is not well visualized. ??No obvious filling defect is present. The retroperitoneal structures are poorly visualized due to bowel gas. ??The right kidney is unremarkable. Procedure Note Nikos Mead MD - 05/29/2017 US LIVER HISTORY: Chronic viral hepatitis C. Hepatic coma. COMPARISON: None available. FINDINGS: The liver demonstrates normal size and echogenicity with no evidence of mass. The gallbladder is normal. There is significant extrahepatic biliary ductal dilatation at 19 mm. The intra-pancreatic portion of the bile duct is not well visualized. No obvious filling defect is present. The retroperitoneal structures are poorly visualized due to bowel gas. The right kidney is unremarkable. IMPRESSION: 1. SIGNIFICANT EXTRAHEPATIC BILIARY DUCTAL DILATATION. 2. POORLY VISUALIZED RETROPERITONEAL STRUCTURES DUE TO BOWEL GAS. Electronically signed by: Nikos Mead M.D. Patricio CARD IMG US PROCEDURES Final R esult documented in this encounter Visit Diagnoses Diagnosis Chronic hepatitis C with hepatic coma (CMS/HCC) (HCC) Chronic hepatitis C with hepatic coma documented in this encounter Care Teams Collection Manager Relationship Specialty Start Date End Date Geovanni Saunders NP [address] [place] [address] [address], [place] [address] PCP - General 01/02/17 04/28/18 documented as of this encounter
--- OUTSIDE RECORDS SUMMARY | 2024-05-31 23:31 | XMS_ITS | Encounter Summary ---
Author Organization [facility] Healthcare Address [address] [place] [address] Care Team Providers Care Human Performance Professor Name Role Phone Geovanni Saunders CLAY HOUSE WORKER Primary Care Provider + Reason for Referral * Diagnostic Imaging (Routine) - Closed Specialty Diagnoses / Procedures Referred By Ellis smiley Referred To Contact Diagnoses Chronic viral hepatitis C (CMS/HCC) (HCC) Procedures US Elastography Patricio Hernadez PA Phone: tel: fax: [address] [phone] Referral ID Status Reason Start Date Expiration Date Visits Re quested Visits Authorized [id number] Closed 12/22/2017 07/03/2019 1 1 Reason for Visit * Diagnostic Imaging (Routine) - Closed Specialty Diagnoses / Procedures Referred By Ellis smiley Referred To Contact Diagnoses Chronic viral hepatitis C (CMS/HCC) (HCC) Procedures US Elastography Patricio Hernadez PA Phone: tel: fax: [address] [phone] Referral ID Status Reason Start Date Expiration Date Visits Re quested Visits Authorized [id number] Closed 12/22/2017 07/03/2019 1 1 Encounter Details Date Type Department Care Team (Latest Contact Info) Description 01/05/2018 1:03 PM CDT - 01/05/2018 11:59 PM CDT Hospital Encounter [facility] [address] [place] [address] Patricio Hernadez PA [address] [place] [address] Chronic viral hepatitis C (CMS/HCC) Discharge Disposition: Discharge to home or self care Social History Tobacco Use Types Packs/Day Years Used Date Smoking Tobacco: Former Smokeless Tobacco: Never Alcohol Use Standard Drinks/Week Comments Yes 0 (1 standard drink = 0.6 oz pur e alcohol) Sex and Gender Information Value Date Recorded Sex Assigned at Not on file 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 11/12/201 9 traZODone (DESYREL) 50 mg tablet Take 50 mg by mouth nightly. 0 documented as of this encounter Discharge Disposition Disposition Code Departure Means Destination Discharge to home or self care documented in this encounter Plan of Treatment Not on file documented as of this encounter Procedures Procedure Name Priority Date/Time Associated Diagnosis Comments US ELASTOGRAPHY PARENCHYMA Schedule Routine, Read Routine (OP Routine) 01/05/2018 2:20 PM CDT Chronic viral hepatitis C (CMS/HCC) Chronic hepatitis C without hepatic coma (CMS/HCC) documented in this encounter Results * US Elastography (01/05/2018 2:20 PM CDT) Anatomical Region Laterality Modality Body N/A Ultrasound 01/05/2018 2:41 PM CDT Impressions 01/05/2018 3:14 PM CDT 1. Coarse liver echotexture. ??Otherwise normal grayscale sonographic appearance of the liver. 2. Young's modulus values suggesting liver fibrosis of stage F2 (mild to moderate). 3. Stable CBD dilation with minimal intrahepatic central biliary dilation, which may represent a type I choledochal cyst or be related to a tight sphincter of Oddi. Electronically signed by: Bella Jaquez M.D. Narrative 01/05/2018 3:14 PM CDT EXAMINATION: 1. LIMITED ABDOMINAL SONOGRAM 2. LIVER SHEAR WAVE ELASTOGRAPHY HISTORY: ??Chronic hepatitis C COMPARISON: ??Liver sonogram dated 10/28/2017, CT of the abdomen and pelvis dated 01/07/2017 FINDINGS: ?? LIMITED ABDOMINAL SONOGRAM: Liver: The liver is normal in size. ??The echotexture is coarse. ??The echogenicity is normal. There is no surface nodularity. No focal solid lesions are visualized. ?? Bile Duct: There is mild intrahepatic bile duct dilatation. The common duct measures 1.8 cm and 1.2 cm in the proximal and mid segments respectively. ??Biliary ductal dilatation is stable from CT scan dated 01/07/2017. Other Findings: There is no ascites. ??Small lymph nodes in the veronika hepatis are likely reactive. LIVER ELASTOGRAPHY: Shear wave elastography was performed using a [employer] E9 Unit and a curved 1-6 MHz transducer. The patient was scanned in a supine ??position with the right arm up via an intercostal approach. The right hemiliver was scanned. Young's modulus in the liver ranged from 7.47 to 11.19 kPa. Median value was 8.48 kPa. The interquartile range/median value ratio was 11.2 %. Procedure Note Bella Jaquez MD - 01/05/2018 EXAMINATION: 1. LIMITED ABDOMINAL SONOGRAM 2. LIVER SHEAR WAVE ELASTOGRAPHY HISTORY: Chronic hepatitis C COMPARISON: Liver sonogram dated 10/28/2017, CT of the abdomen and pelvis dated 01/07/2017 FINDINGS: LIMITED ABDOMINAL SONOGRAM: Liver: The liver is normal in size. The echotexture is coarse. The echogenicity is normal. There is no surface nodularity. No focal solid lesions are visualized. Bile Duct: There is mild intrahepatic bile duct dilatation. The common duct measures 1.8 cm and 1.2 cm in the proximal and mid segments respectively. Biliary ductal dilatation is stable from CT scan dated 01/07/2017. Other Findings: There is no ascites. Small lymph nodes in the veronika hepatis are likely reactive. LIVER ELASTOGRAPHY: Shear wave elastography was performed using a [employer] E9 Unit and a curved 1-6 MHz transducer. The patient was scanned in a supine position with the right arm up via an intercostal approach. The right hemiliver was scanned. Young's modulus in the liver ranged from 7.47 to 11.19 kPa. Median value was 8.48 kPa. The interquartile range/median value ratio was 11.2 %. IMPRESSION: 1. Coarse liver echotexture. Otherwise normal grayscale sonographic appearance of the liver. 2. Young's modulus values suggesting liver fibrosis of stage F2 (mild to moderate). 3. Stable CBD dilation with minimal intrahepatic central biliary dilation, which may represent a type I choledochal cyst or be related to a tight sphincter of Oddi. Electronically signed by: Bella Jaquez M.D. Patricio CARD IMSerg US PROCEDURES Final R esult documented in this encounter Visit Diagnoses Diagnosis Chronic viral hepatitis C (CMS/HCC) (HCC) Chronic hepatitis C without mention of hepatic coma documented in this encounter Care Teams Human Performance Professor Relationship Specialty Start Date End Date Geovanni Saunders NP [address] [place] [address] PCP - General 01/02/17 04/28/18 documented as of this encounter
--- OUTSIDE RECORDS SUMMARY | 2024-05-31 23:32 | XMS_ITS | Encounter Summary ---
Author Organization [facility] Healthcare Address [address] [place] [address] Care Team Providers Care Subsea Engineer Name Role Phone Unavailable Primary Care Provider Unavailabl e Encounter Details Date Type Department Care Team (Late st Contact Info) Description 10/13/2013 10:47 AM CDT - 10/13/2013 12:14 PM CDT Hospital Encounter [facility] [address] [place], [place] [id number] Constipation; Urinary frequency; Tobacco use disorder; Personal history of urinary calculi Social History Tobacco Use Types Packs/Day Years Used Date Smoking Tobacco: Never Assessed Sex and Gender Information Value Date Recorded Sex Assigned at Not on file Legal Sex Male 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 Gender Identity Not on file Sexual Orientation Not on file documented as of this encounter Plan of Treatment Not on file documented as of this encounter Procedures Procedure Name Priority Date/Time Associated Diagnosis Comments XR ABDOMEN AP 1V Routine 10/13/2013 11:5 8 AM CDT URINALYSIS Routine 10/13/2013 10:58 AM CDT DISCHARGE LABORATORY CUMULATIVE REPORT Routine 10/13/2013 12:00 AM CDT documented in this encounter Results * XR Abdomen AP 1V (10/13/2013 11:58 AM CDT) Anatomical Region Laterality Modality Body N/A Radiographic Maria M ging 10/13/2013 11:5 8 AM CDT Narrative 10/13/2013 3:45 PM CDT XR KUB ?[id number] ??Acc#: ??[id number] DATE OF EXAM: ??Oct 13 2013 CLINICAL HISTORY: Enlarged prostate. ??History of gallstones. ??Feels like he needs to urinate frequently but cannot. ??Low pelvic pain with history of renal stones in the past. RESULT: Supine view of the abdomen demonstrates a nonobstructive appearing bowel gas pattern. ??There is an ovoid calcification just to the right of midline in the inferior pelvis, but on a previous lumbar spine series from October 28, 2012 there was a similar appearing calcification, although it projected more centrally in the pelvis. IMPRESSION: 1. NONOBSTRUCTIVE BOWEL GAS PATTERN. 2. OVOID CALCIFICATION TO THE RIGHT OF MIDLINE IN THE LOW PELVIS APPEARS SIMILAR TO THE AP LUMBAR SPINE FILM FROM 2012 WITH EXCEPTION THAT ON THAT PARTICULAR SERIES THE CALCIFICATION APPEARED MIDLINE. Interpreting Physician: ??CHRISTAL RIVERA M.D. ??Read on: ??Oct 13 2013 ??1:08P Transcribed by: ??MARIO ??On: Oct 13 2013 ??2:23P Approved Electronically by: ??CHRISTAL RIVERA M.D. ??on: ??Oct 13 2013 ??3:45P Ordering DR: ??Francheska Attending DR: FLYNN REY Procedure Note Provider, MD Edmund - 09/17/2016 XR KUB [id number] Acc#: [id number] DATE OF EXAM: Oct 13 2013 CLINICAL HISTORY: Enlarged prostate. History of gallstones. Feels like he needs tourinate frequently but cannot. Low pelvic pain with history of renalstones in the past. RESULT: Supine view of the abdomen demonstrates a nonobstructive appearing bowelgas pattern. There is an ovoid calcification just to the right of midlinein the inferior pelvis, but on a previous lumbar spine series from October there was a similar appearing calcification, although it projectedmore centrally in the pelvis. IMPRESSION: 1. NONOBSTRUCTIVE BOWEL GAS PATTERN. 2. OVOID CALCIFICATION TO THE RIGHT OF MIDLINE IN THE LOW PELVIS APPEARSSIMILAR TO THE AP LUMBAR SPINE FILM FROM 2012 WITH EXCEPTION THAT ON THATPARTICULAR SERIES THE CALCIFICATION APPEARED MIDLINE. Interpreting Physician: CHRISTAL RIVERA M.D. Read on: Oct 13 2013 1:08P Transcribed by: MARIO On: Oct 13 2013 2:23P Approved Electronically by: CHRISTAL RIVERA M.D. on: Oct 13 2013 3:45P Ordering KATHARINE Pritchard Attending DR: FLYNN REY us Historical Provider MD AVILA XR PROCEDURES Final R esult * Urinalysis (10/13/2013 10:58 AM CDT) Color, ur YELLOW YELLOW HISTORICAL RESULTS Clarity, ur CLEAR CLEAR HISTORIC AL RESULTS Specific gravity, ur 1.010 gu HISTORICAL RESULTS Leukocyte esterase, ur Negative NEGATIVE HISTORICAL RESULTS Nitrites, ur Negative NEGATIVE HISTORI JOHNNY RESULTS pH, ur 5.5 6.0 HISTORICAL RESULTS Protein, ur Negative NEGATIVE HISTORIC AL RESULTS Glucose, ur Negative NEGATIVE HISTORIC AL RESULTS Ketones, ur Negative NEGATIVE HISTORIC AL RESULTS Urobilinogen, quant, ur 0.2 0.2 - 1.0 mg/dl HISTORICAL RESULTS Bilirubin, ur Negative NEGATIVE HISTOR ICAL RESULTS U Blood Negative NEGATIVE HISTORICAL RESULTS Urine 10/13/2013 10:5 8 AM CDT us Rosalba Pritchard HAND REAMER LAB BLOOD ORDERABLES Final Re sult HISTORICAL RESULTS * Discharge Laboratory Cumulative Report (10/13/2013 12:00 AM CDT) 10/13/2013 Narrative HISTORICAL RESULTS - 10/14/2013 12:36 AM CDT Patient No: [id number] ? [facility] Patient Name: CHRISTAL LANZA ? [facility] Healthcare Age: 58 YRS ?: 1955 ?Sex:M ?[address] )[phone] ?? Adm Dt: 10/13/2013 ?[place], [place] ??[address] Created: 10/14/2013 ??0036 ?? Pt. Type: E ? Discharge Dt: 10/13/2013 ? Pathologists: Lamar Glasgow MD Admit Dr. Narvaez Dr: FLYNN REY MD ?URINALYSIS ?Collection Date: ?10/13/13 ?Collection Time: ?1058 ? Ref Range: ?? Units: [YELLOW] ? UR COLOR ?YELLOW ??[CLEAR] ? UR APPEARANCE ?CLEAR ? U SPEC GRAVITY ? 1.010 [NEGATIVE] ?U LEUKO ESTRASE ? NEGATIVE [NEGATIVE] ?U NITRITE ? NEGATIVE ?? [6.0] ?U PH ? 5.5 [NEGATIVE] ?U PROTEIN ? NEGATIVE [NEGATIVE] ?U GLUCOSE ? NEGATIVE [NEGATIVE] ?U KETONES ? NEGATIVE [0.2- 1.0] ?UROBILINOGEN ? 0.2 [NEGATIVE] ?U BILIRUBIN ? NEGATIVE [NEGATIVE] ?U BLOOD ? NEGATIVE ?? END OF CHART ? Page: ?? 1 us Historical Provider MD LAB BLOOD ORDERABLES Cecilia caruso Result HISTORICAL RESULTS documented in this encounter Visit Diagnoses Diagnosis Constipation Unspecified constipation Urinary frequency Tobacco use disorder Personal history of urinary calculi documented in this encounter
--- OUTSIDE RECORDS SUMMARY | 2024-05-31 23:32 | XMS_ITS | Encounter Summary ---
Author Organization [facility] Healthcare Address [address] [place] [address] Care Team Providers Care Electric Motor Repairer Name Role Phone Geovanni Saunders ROUTE AIDE Primary Care Provider + Encounter Details Date Type Department Care Team (Late st Contact Info) Description 01/27/2017 9:03 PM CDT - 01/27/2017 11:59 PM CDT Hospital Encounter [facility] [phone] Lopez Wang MD [address] [facility] [address] [place] [address] Discharge Disposition: Discharge to home or self care Social History Tobacco Use Types Packs/Day Years Used Date Smoking Tobacco: Never Assessed Sex and Gender Information Value Date Recorded Sex Assigned at Not on file 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 Gender Identity Not on file Sexual Orientation [...] Procedure Name Priority Date/Time Associated Diagnosis Comments URINE CULTURE Routine Gen Lab 01/27/2017 11:49 AM CDT DISCHARGE LABORATORY CUMULATIVE REPORT 01/27/2017 12:00 AM CDT documented in this encounter Results * Urine culture (01/27/2017 11:49 AM CDT) Report Final Report: No growth [facility] Urine, catheterized 01/28/20 11:49 AM CDT 01/27/2017 9:34 PM CDT Narrative [facility] - 01/29/2017 7:24 AM CDT us Lopez Wang MD LAB MICROBIOLOGY - GENERAL ORD ERABLES Final Result [facility] Department [place] [address] * DISCHARGE LABORATORY CUMULATIVE REPORT (01/27/2017 12:00 AM CDT) Narrative 01/27/2017 12:00 AM CDT Ordered by an unspecified provider. Historical Provider LAB BLOOD ORDERABLES Cecilia l Result documented in this encounter Visit Diagnoses Not on filedocumented in this encounter Care Teams Electric Motor Repairer Relationship Specialty Start Date End Date Geovanni Saunders NP [address] [place] [address] [address] [facility] [place] [address] PCP - General 01/02/17 04/28/18 documented as of this encounter
--- OUTSIDE RECORDS SUMMARY | 2024-05-31 23:32 | XMS_ITS | Encounter Summary ---
Author Organization [facility] Healthcare Address [address] [place] [address] Care Team Providers Care Analytical Laboratory Technician Name Role Phone Unavailable Primary Care Provider Unavailabl e Encounter Details Date Type Department Care Team (Late st Contact Info) Description 03/25/2016 11:29 AM CDT - 03/25/2016 11:59 PM CDT Hospital Encounter [facility] Joe Melton MD [address] [place] [address] Talia Bergeron, PROCEDURE TECH [address] [place] [address] Lobar pneumonia (CMS/HCC) Social History Tobacco Use Types Packs/Day Years Used Date Smoking Tobacco: Never Assessed Sex and Gender Information Value Date Recorded Sex Assigned at Not on file 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 Gender Identity Not on file Sexual Orientation Not on file documented as of this encounter Plan of Treatment Not on file documented as of this encounter Procedures Procedure Name Priority Date/Time Associated Diagnosis Comments XR CHEST PA LATERAL 2 VIEWS Routine 03/25/2016 11:51 AM CDT documented in this encounter Results * XR Chest Pa Lateral 2 Vw (03/25/2016 11:51 AM CDT) Anatomical Region Laterality Modality Body, Chest N/A Radiographic Maria M ging 03/25/2016 11:5 1 AM CDT Narrative 03/26/2016 11:34 AM CDT TD XR Chest 2 Views ?[id number] ??Acc#: ??[id number] DATE OF EXAM: ??Nov ??2015 CLINICAL HISTORY: Congestion, cough and shortness of breath. Rule out pneumonia. Nonsmoker. RESULT: Erect PA and lateral views demonstrate normal heart size and pulmonary vascularity. Thoracic aorta is tortuous without aneurysm. Moderate hiatal hernia is seen behind the heart. Linear bands of atelectasis or scarring extend laterally from the left hilum; more prominent than on 08 January 2013. No infiltrate, mass or pleural effusion is otherwise seen. Minimal anterior wedging of the lower thoracic vertebra is old. No acute bony abnormality is seen. There is mild dextroscoliosis. IMPRESSION: 1. ??LINEAR INCREASED DENSITIES EXTENDING LATERALLY FROM LEFT HILUM; INCREASED SINCE 08 JANUARY 2013; INDETERMINATE FOR ATELECTASIS OR SCARRING. 2. ??NO ACTIVE DISEASE OTHERWISE SEEN. 3. ??MODERATE HIATAL HERNIA. 4. ??MILD THORACIC DEXTROSCOLIOSIS AND AN OLD MID TO LOWER THORACIC VERTEBRAL COMPRESSION DEFORMITY. Interpreting Physician: ??DR ALICJA SANTOS M.D. ??Read on: ??Nov ??2015 4:51P Transcribed by: ??TXD ??On: Nov ??2 2015 11:14A Approved Electronically by: ??DANIELLE Adames, DR HELM ??on: ??Nov ??2015 11:34A Attending: ??TALIA BERGERON NP Requesting: ??TALIA BERGERON NP Requesting Fax: ??[phone] Attending Fax: ??[phone] Attending ID: ??[id number] Requesting ID: ??[id number] Report To 1 ID: ??[id number] Report To 1 Name: ??TALIA BERGERON NP Report To 1 FAX: ??[phone] NextGen Order #: Procedure Note Provider, MD Edmund - 10/01/2016 TD XR Chest 2 Views [id number] Acc#: [id number] DATE OF EXAM: Mar 25 2016 CLINICAL HISTORY: Congestion, cough and shortness of breath. Rule out pneumonia.Nonsmoker. RESULT: Erect PA and lateral views demonstrate normal heart size and pulmonaryvascularity. Thoracic aorta is tortuous without aneurysm. Moderate hiatalhernia is seen behind the heart. Linear bands of atelectasis or scarringextend laterally from the left hilum; more prominent than on December2012. No infiltrate, mass or pleural effusion is otherwise seen. Minimalanterior wedging of the lower thoracic vertebra is old. No acute bonyabnormality is seen. There is mild dextroscoliosis. IMPRESSION: 1. LINEAR INCREASED DENSITIES EXTENDING LATERALLY FROM LEFT HILUM;INCREASED SINCE 08 JANUARY 2013; INDETERMINATE FOR ATELECTASIS ORSCARRING. 2. NO ACTIVE DISEASE OTHERWISE SEEN. 3. MODERATE HIATAL HERNIA. 4. MILD THORACIC DEXTROSCOLIOSIS AND AN OLD MID TO LOWER THORACICVERTEBRAL COMPRESSION DEFORMITY. Interpreting Physician: DR ALICJA SANTOS M.D. Read on: Mar 25 20164:51P Transcribed by: HUSAM On: Mar 26 2016 11:14A Approved Electronically by: DANIELLE Adames, DR HELM on: Mar 26 201611:34A Attending: TALIA BERGERON NP Requesting: TALIA BERGERON NP Requesting Attending Attending ID: [id number] Requesting ID: [id number] Report To 1 ID: [id number] Report To 1 Name: TALIA BERGERON NP Report To 1 FAX: [phone] NextGen Order #: us Historical Provider MD AVILA XR PROCEDURES Final R esult documented in this encounter Visit Diagnoses Diagnosis Lobar pneumonia (CMS/HCC) (HCC) Pneumococcal pneumonia (streptococcus pneumoniae pneumonia) documented in this encounter
--- OUTSIDE RECORDS SUMMARY | 2024-05-31 23:32 | XMS_ITS | Encounter Summary ---
Author Organization [facility] Healthcare Address [address] [place] [address] Care Team Providers Care Charging Car Operator Name Role Phone Geovanni Saunders REIKI PRACTITIONER Primary Care Provider + Encounter Details Date Type Department Care Team (Latest Contact Info) Description 01/07/2017 7:14 AM CDT - 01/07/2017 11:59 PM CDT Hospital Encounter [facility] Niesha, Kendall Carlson MD [address] [place] [id number] Discharge Disposition: Discharge to home or self care Social History Tobacco Use Types Packs/Day Years Used Date Smoking Tobacco: Never Assessed Sex and Gender Information Value Date Recorded Sex Assigned at Not on file 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 us Historical Provider LAB BLOOD ORDERABLES Cecilia caruso Result * CT Abdomen Pelvis W WO Contrast (01/07/2017 1:56 PM CDT) Anatomical Region Laterality Modality Body N/A Computed Tomogra phy 01/07/2017 1:56 PM CDT Narrative 01/07/2017 1:[address] Abd/Pel W/WO ? [id number] ??Acc#: ??[id number] DATE OF EXAM: ??Jan 07 2017 ?? EXAM: CT Abd/Pel W/WO ? [id number] HISTORY: Hematuria COMPARISON: None TECHNIQUE: Following administration of 100 and Optiray 320 axial images of the abdomen and pelvis were obtained. ??Coronal reconstructions and delayed sequences were performed. FINDINGS: Views lung bases reveal dependent atelectasis in the left lower lung. A moderate hiatal hernia is present. ??A 4 mm right intrarenal calculus is noted. ??The left kidney and both ureters do not contain stones. ??The pancreas is atrophic and the pancreatic duct is prominent. ??The liver, gallbladder, spleen, and adrenal glands are normal. ??The large and small bowel appear overall normal in caliber and configuration. ??No free intraperitoneal air or obstruction is seen. ??The abdominal aorta appears overall normal in course and caliber. ??No significant mesenteric or retroperitoneal lymphadenopathy is noted. A 2.4 cm staghorn calculus is noted in the urinary bladder which is decompressed. ??A right bladder ureterocele measuring 1.8 cm is seen. The pelvic viscera are normal. ??No free pelvic fluid is seen. ??No pelvic or lymphadenopathy is noted. IMPRESSION: 1. ??Right nephroliths without evidence of obstructive uropathy. 2. ??Staghorn calculus in the urinary bladder. 3. ??Right ureterocele. 4. ??Moderate hiatal hernia. Electronically signed by: Westley Morales M.D. Interpreting Physician: ??WESTLEY MORALES M.D. ??Read on: ??Jan 07 2017 11:29A Transcribed by: ??PSC ??On: Jan 07 2017 11:27A Approved Electronically by: ??CARMEN Adames, WESTLEY ??on: ??Jan 07 2017 11:27A Ordering DR: KENDALL SCHERER Attending DR: KENDALL SCHERER Attending: ??KENDALL SCHERER Requesting: ??KENDALL SCHERER Requesting Fax: ??[phone] Attending Fax: ??[phone] Attending ID: ??[id number] Requesting ID: ??[id number] Report To 1 ID: ??[id number] Report To 1 Name: ??KENDALL SCHERER Report To 1 FAX: ??[phone] NextGen Order #: ?? Procedure Note Miscellaneous, Not In File / Provider, MD Edmund - 01/13/2017 CT Abd/Pel W/WO [id number] Acc#: [id number] DATE OF EXAM: Jan 07 2017 EXAM: CT Abd/Pel W/WO [id number] HISTORY: Hematuria COMPARISON: None TECHNIQUE: Following administration of 100 and Optiray 320 axial images of the abdomen and pelvis were obtained. Coronal reconstructions and delayed sequences were performed. FINDINGS: Views lung bases reveal dependent atelectasis in the left lower lung. A moderate hiatal hernia is present. A 4 mm right intrarenal calculus is noted. The left kidney and both ureters do not contain stones. The pancreas is atrophic and the pancreatic duct is prominent. The liver, gallbladder, spleen, and adrenal glands are normal. The large and small bowel appear overall normal in caliber and configuration. No free intraperitoneal air or obstruction is seen. The abdominal aorta appears overall normal in course and caliber. No significant mesenteric or retroperitoneal lymphadenopathy is noted. A 2.4 cm staghorn calculus is noted in the urinary bladder which is decompressed. A right bladder ureterocele measuring 1.8 cm is seen. The pelvic viscera are normal. No free pelvic fluid is seen. No pelvic or lymphadenopathy is noted. IMPRESSION: 1. Right nephroliths without evidence of obstructive uropathy. 2. Staghorn calculus in the urinary bladder. 3. Right ureterocele. 4. Moderate hiatal hernia. Electronically signed by: Westley Morales M.D. Interpreting Physician: WESTLEY MORALES M.D. Read on: Jan 07 2017 11:29A Transcribed by: [facility] On: Jan 07 2017 11:27A Approved Electronically by: WESTLEY MORALES M.D. on: Jan 07 2017 11:27A Ordering DR: KENDALL SCHERER Attending DR: KENDALL SCHERER Attending: KENDALL SCHERER Requesting: KENDALL SCHERER Requesting Attending Attending ID: [id number] Requesting ID: [id number] Report To 1 ID: [id number] Report To 1 Name: KENDALL SCHERER Report To 1 FAX: [phone] NextGen Order #: Kendall Scherer MD IMG CT PROCEDURES Final Re sult * Creatinine, whole blood (01/07/2017 7:18 AM CDT) Creatinine, bld 1.11 0.60 - 1.30 mg/dL [facility] ([place]) Blood specimen (specimen) 01/07/2017 7:18 AM CDT 01/07/2017 7:25 AM CDT Kendall Scherer MD LAB BLOOD ORDERABLES Final Result [facility] ([place]) [facility] Department [place] [address] documented in this encounter Visit Diagnoses Not on filedocumented in this encounter Care Teams Charging Car Operator Relationship Specialty Start Date End Date Geovanni Saunders NP [address] [facility] [address] [place] [address] PCP - General 01/02/17 04/28/18 documented as of this encounter
--- OUTSIDE RECORDS SUMMARY | 2024-05-31 23:32 | XMS_ITS | Encounter Summary ---
Author Organization [facility] Healthcare Address [address] [place] [address] Care Team Providers Care Legal Referee Name Role Phone Unavailable Primary Care Provider Unavailabl e Encounter Details Date Type Department Care Team (Late st Contact Info) Description 01/25/2013 12:44 PM CDT - 01/25/2013 11:59 PM CDT Hospital Encounter [facility] Joe Melton MD [address] [place] [address] Irena Huerta, THERMOSTAT MACHINE TENDER [address] [address] Shortness of breath Social History Tobacco Use Types Packs/Day Years Used Date Smoking Tobacco: Never Assessed Sex and Gender Information Value Date Recorded Sex Assigned at Not on file 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 us Historical Provider MD PFT ORDERABLES Final Res ult documented in this encounter Visit Diagnoses Diagnosis Shortness of breath documented in this encounter
--- OUTSIDE RECORDS SUMMARY | 2024-05-31 23:32 | XMS_ITS | Encounter Summary ---
Author Organization [facility] Healthcare Address [address] [place] [address] Care Team Providers Care Cupola Tender Helper Name Role Phone Chip Geovanni Felix TILTING HEAD BAND SAWYER Primary Care Provider + Encounter Details Date Type Department Care Team (Late st Contact Info) Description 03/09/2017 8:11 AM CDT - 03/09/2017 2:25 PM CDT Hospital Encounter [facility] OP INTERIM [phone] Lopez Wang MD [address] 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 Surgeon: Lopez Wang M.D. Dictating: Lopez Wang M.D. Service Dt: 03/09/2017 OPERATIVE REPORT FACILITY ID: [facility] SURGEON Lopez Wang MD FIRST CONVENIENCE STORE MANAGER Nighat Cortez MD PREOPERATIVE DIAGNOSES Benign prostatic hyperplasia, enlarged prostate, bladder outlet obstruction, male lower urinary tract symptoms, and a 3 cm bladder stone. POSTOP DIAGNOSES Benign prostatic hyperplasia, enlarged prostate, bladder outlet obstruction, male lower urinary tract symptoms, and a 3 cm bladder stone. PROCEDURES Cystoscopy, Urolift lifting auto prostatic urethra for BPH, and laser lithotripsy and removal of 3 cm bladder stone, cystolitholapaxy. ANESTHESIA General anesthesia. COMPLICATION None. SPECIMEN Bladder stone sent to the pathologist for chemical analysis. ESTIMATED BLOOD LOSS None. INDICATIONS FOR SURGERY Christal is a gentleman who has an enlarged prostate, benign prostatic hyperplasia, bladder outlet obstruction and male lower urinary tract symptoms. In addition, he was also found to have a 3 cm large bladder stone on CT scan. The risks and benefits of the procedure have been discussed with the patient. We will do a laser lithotripsy and extraction, a cystolitholapaxy of the bladder stone and because there is a concern that he may have a bladder outlet obstruction causing the stone, and also enlarged prostate, we will do a lifting of the prostatic urethra using Urolift for the patient. This is precertified. The risks and benefits of the procedure have been discussed with the patient. He consented to proceed. The risks include but not limited to bleeding, infection, incomplete bladder emptying, hematuria, pain in the urethra in the perineal area, dysuria, recurrent bladder stone and recurrent voiding symptoms. DETAILS OF SURGERY Patient identified in the preop area. Started on IV antibiotics. He was then prepped and draped in standard surgical fashion. Bilateral SCDs were placed for DVT prophylaxis. A rigid scope was advanced into his bladder. He has a moderately enlarged prostate with kissing lateral loops of the prostate causing prostatic urethral obstruction visually apparent. He also has an enlarged prostate with BPH. He has a small median lobe that is not deemed to be causing any ball-valve on the patient. Once we entered the bladder we can visualize the bladder mucosa. The bladder mucosa otherwise looks normal except there is a 3 cm mobile bladder stone in the middle of the bladder. The stone looked very hard. There was no other lesion inside the bladder. We started the case doing the Urolift. We were able to fire the 1st Urolift at approximately 2 o'clock position to his anterior lateral wall of the prostate 1.5 cm from the bladder neck. We fired a 2nd Urolift on patient's opposite side 1.5 cm from the bladder neck, again opening up the anterior portion of the prostate at 10 o'clock position. The 3rd Urolift was then fired at the level of the verumontanum at approximately the 9 o'clock position to open up the lateral part of the prostate closer to the verumontanum. The 4th Urolift device was fired on patient's left side at 3 o'clock position at the level of the verumontanum to compress and open up the prostatic urethra laterally. After the 4th Urolift tack has been fired in the periprosthetic capsule in the area the anterior portion of the prostate appears to be open. The prostatic urethra is opened. We advanced the scope back into the bladder. We do not see any ball-valve effect from the median lobe. The bladder looks normal. There is no tacks inside the bladder. At this point, we switched over to a regular cystoscope. We used a 1000 micron fiber to laser the stone. The stone is actually very hard. It takes us a while to laser all the stone into smaller fragments. After that has been done, we then used an Ellik device to irrigate all the stone fragments from his bladder. The specimen was sent to the pathologist for chemical analysis. At the end of the case there was no bleeding from the Urolift. The anterior portion of the prostatic urethra is open. The bladder neck is not obstructed and there are no stone fragments left inside the bladder. The urethral orifice is normal. I then put a Quevedo catheter inside the bladder. Patient was then awakened and sent to recovery room in stable condition. He is draining clear urine. PRESENCE STATEMENT Dr. Lopez Wang was present for the procedure. Electronically Authenticated and Edited by: Matt Wang MD On 03/30/2017 11:41 AM TABLE INSPECTOR Lopez Wang M.D. L:[facility] #[id number] Editing MT: TD: 03/18/2017 01:49 PM cc: Lopez Wang M.D. documented in this encounter Plan of Treatment Not on file documented as of this encounter Procedures Procedure Name Priority Date/Time Associated Diagnosis Comments AEROBIC CULTURE Routine Gen Lab 03/09/2017 11:00 AM CDT SURGICAL PATHOLOGY Routine 03/09/2017 11:00 AM CDT SURGICAL PATHOLOGY 03/09/2017 12:00 AM CDT documented in this encounter Results * Surgical pathology (03/09/2017 11:00 AM CDT) 03/09/2017 11:0 0 AM CDT 03/09/2017 5:11 PM CDT Narrative 03/24/2017 2:06 PM CDT [facility] [place] [address] SURGICAL PATHOLOGY REPORT FINAL Patient Name: CHRISTAL LANZA ? Address: [address] [place] [address] ??Service: ??Urology ??[place], [place] ??[address] ??Location: ??[facility] Taken: 03/09/2017 Gender: M ?? Received: 03/09/2017 : 1955 (Age: 61) Hospital #: ??[id number] Accessioned: 03/10/2017 ?Patient Type: ??[facility] SDS Reported: 03/24/2017 ? Physician(s): Pam Wang M.D. ? Diagnosis: Bladder, stone, removal ? - Lithiasis (gross examination only) Stone analysis: 1st Constituent: 70% Calcium oxalate monohydrate 2nd Constituent: 30% Calcium oxalate dihydrate Stone analysis was performed and interpreted by [facility], [place], [place]. and/03/11/2017 12:14 By this signature, I attest that the above diagnosis is based upon my personal examination of the slides(and/or other material indicated in the diagnosis). ?? Anil Candelaria M.D., Ph.D. ??Report Electronically Reviewed and Signed Out By ??Anil Candelaria M.D., Ph.D. 03/24/2017 14:06:59 ? History: The patient is a 61-year-old man who presents with a bladder stone. ??Operative procedure: Cystoscopy with lithotripsy. Specimen(s) Received: A: Bladder calculi for chemical stone analysis Gross Description: Specimen is received in a single container without fixative labeled with the patient's name and bladder calculi for chemical stone analysis and contains multiple zavala-brown, granular calculi measuring 4.0 x 1.6 x 1.6 cm in aggregate and ranging from 0.1 to 0.8 cm in greatest dimension. ??Gross examination only. The specimen is submitted entirely for chemical analysis. ??Jar 0. and03/11/2017 12:13 ?Raji. Kita Izquierdo. ? By this signature, I attest that the above diagnosis is based upon my personal examination of the slides(and/or other material). ?? Surgical Pathology report is available electronically in Clinical Desktop. The performance characteristics of some immunohistochemical stains, fluorescence in-situ hybridization tests and immunophenotyping by flow cytometry cited in this report (if any) were determined by the Surgical Pathology Department at [facility] as part of an ongoing quality assurance specialist program and in compliance with federally mandated [...] a high complexity laboratory under CLIA '88. ??The FDA has determined that such clearance or approval is not necessary. ??This test is used for clinical purposes. ??It should not be regarded as investigational or for research. ??Nevertheless, federal rules concerning the medical use of analyte specific reagents require that the following disclaimer be attached to the report: This test was developed and its performance characteristics determined by the Surgical Pathology Department of [facility]. ??It has not been cleared or approved by the U. S. Food and Drug Administration. Lopez Wang MD LAB PATHOLOGY ORDERABLES Final Result * Aerobic culture (03/09/2017 11:00 AM CDT) Report Final Report: No growth [facility] Stones (calculi) (Urinary Bladder) 03/09/2017 11:00 AM CDT 03/09/2017 6:15 PM CDT Narrative [facility] - 03/10/2017 8:23 AM CDT Specimen collected in the operating room. Specimens submitted from normally sterile body sites will have all bacterial morphotypes identified. Specimens that contain grossly mixed candice and/or are from body sites that are not normally sterile will be examined for Staphylococcus aureus, Pseudomonas aeruginosa, beta-hemolytic strep, vancomycin-resistant Enterococcus and fungus. If any of these are isolated, the organism will be reported. Current interpretive data was last revised on 2012. Lopez Wang MD LAB MICROBIOLOGY - GENERAL ORD ERABLES Final Result [facility] FAG[facility] Department [place] [address] * SURGICAL PATHOLOGY (03/09/2017 12:00 AM CDT) Narrative 03/09/2017 12:00 AM CDT Ordered by an unspecified provider. us Historical Provider MD LAB PATHOLOGY ORDERABLES Final Result documented in this encounter Visit Diagnoses Not on filedocumented in this encounter Care Teams Cupola Tender Helper Relationship Specialty Start Date End Date Geovanni Saunders NP [address] [place] [address] [address] [place] [address] PCP - General 01/02/17 04/28/18 documented as of this encounter
--- OUTSIDE RECORDS SUMMARY | 2024-05-31 23:32 | XMS_ITS | Encounter Summary ---
Author Organization [facility] Healthcare Address [address] [place] [address] Care Team Providers Care Associate Professor Of Radiology Name Role Phone Geovanni Saunders VICE PRESIDENT OF ACADEMIC AFFAIRS Primary Care Provider + Encounter Details Date Type Department Care Team (Late st Contact Info) Description 03/05/2017 3:22 PM CDT - 03/05/2017 11:59 PM CDT Hospital Encounter [facility] OP INTERIM [phone] Lopez Wang MD [address] [facility] [address] [place] [address] Discharge Disposition: Discharge to home or self care Social History Tobacco Use Types Packs/Day Years Used Date Smoking Tobacco: Never Assessed Sex and Gender Information Value Date Recorded Sex Assigned at Not on file 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 Gender Identity Not on file Sexual Orientation Not on file documented as of this encounter Last Filed Vital Signs Vital Sign Reading Time Taken Comments Blood Pressure - - Pulse - - Temperature - - Respiratory Rate - - Oxygen Saturation - - Inhaled Oxygen Concentration - - Weight 75.7 kg (166 lb 15.6 oz) 03/05/2017 4:25 PM CDT Height 177.8 cm (5' 10 ) 03/05/2017 4:25 PM CDT Body Mass Index 23.96 03/05/2017 4:25 PM CDT documented in this encounter Medications at [...] Priority Date/Time Associated Diagnosis Comments URINE CULTURE RTNm 03/05/2017 6:12 PM CDT BASIC METABOLIC PANEL After X-Ray 03/05/2017 6:12 PM CDT ELECTROCARDIOGRAPHY (ECG) 03/05/2017 DISCHARGE LABORATORY CUMULATIVE REPORT 03/05/2017 12:00 AM CDT documented in this encounter Results * Urine culture (03/05/2017 6:12 PM CDT) Report Final Report: Insignificant growth based on current clinical standards. [facility] Urine, clean voided 03/05/2017 6:12 PM CDT 03/05/2017 7:14 PM CDT Narrative [facility] - 03/06/2017 12:36 PM CDT Received in transport media. Vita Lynn NP LAB MICROBIOLOGY - [facility] ORDERABLES Final Result [facility] Department [place] [address] * (ABNORMAL) Basic metabolic panel (03/05/2017 6:12 PM CDT) Sodium 140 135 - 145 mmol/L [facility] Potassium, pl 4.6 3.3 - 4.9 mmol/L [facility] Chloride 103 97 - 110 mmol/L [facility] CO2 30 22 - 32 mmol/L [facility] BUN 14 8 - 25 mg/dL [facility] Glucose 68(L) 70 - 199 mg/dL [facility] Creatinine 1.06 0.80 - 1.30 mg/dL [facility] Calcium 9.0 8.5 - 10.3 mg/dL [facility] Anion gap 8 2 - 15 mmol/L [facility] Blood specimen (specimen) 03/05/2017 6:12 PM CDT 03/05/2017 7:13 PM CDT us Vita Lynn NP LAB BLOOD ORDERABLES Fi nal Result [facility] [place] [address] * DISCHARGE LABORATORY CUMULATIVE REPORT (03/05/2017 12:00 AM CDT) Narrative 03/05/2017 12:00 AM CDT Ordered by an unspecified provider. us Historical Provider LAB BLOOD ORDERABLES Cecilia l Result * ELECTROCARDIOGRAPHY (ECG) (03/05/2017) us Provider Scanning ECG ORDERABLES Final Result documented in this encounter Visit Diagnoses Not on filedocumented in this encounter Care Teams Associate Professor Of Radiology Relationship Specialty Start Date End Date Geovanni Saunders NP [address] [facility] [address] [place] [address] PCP - General 01/02/17 04/28/18 documented as of this encounter
--- OUTSIDE RECORDS SUMMARY | 2024-05-31 23:32 | XMS_ITS | Encounter Summary ---
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 Gender Identity Not on file Sexual Orientation Not on file documented as of this encounter Plan of Treatment Not on file documented as of this encounter Procedures Procedure Name Priority Date/Time Associated Diagnosis Comments XR CHEST PA LATERAL 2 VIEWS Routine 01/08/2013 10:47 AM CDT documented in this encounter Results * XR Chest PA Lateral 2 View (01/08/2013 10:47 AM CDT) Anatomical Region Laterality Modality Body, Chest N/A Radiographic Maria M ging 01/08/2013 10:4 7 AM CDT Narrative 01/08/2013 9:51 PM CDT XR Chest 2 Views ?[id number] ??Acc#: ??[id number] DATE OF EXAM: ??Jan 08 2013 CLINICAL HISTORY: Shortness of breath. RESULT: A two view examination of the chest is read without comparison. ??The lungs are mildly hyperexpanded without focal consolidation, pneumothorax or pleural effusion. ??Cardiac size and mediastinal contours are normal. IMPRESSION: MILD HYPEREXPANSION WITHOUT ACUTE CARDIOPULMONARY ABNORMALITY. Interpreting Physician: ??DR PATRICIA BENJAMIN M.D. ??Read on: ??Jan 08 2013 10:57A Transcribed by: ??VLR ??On: Jan 08 2013 ??1:09P Approved Electronically by: ??SOURAV Adames, DR GOMEZ ??on: ??Jan 08 2013 9:51P Ordering DR: LAITH HERRERA Attending DR: JOE OLMOS Procedure Note Provider, Edmund, - 09/17/2016 XR Chest 2 Views [id number] Acc#: [id number] DATE OF EXAM: Jan 08 2013 CLINICAL HISTORY: Shortness of breath. RESULT: A two view examination of the chest is read without comparison. Thelungs are mildly hyperexpanded without focal consolidation, pneumothoraxor pleural effusion. Cardiac size and mediastinal contours are normal. IMPRESSION: MILD HYPEREXPANSION WITHOUT ACUTE CARDIOPULMONARY ABNORMALITY. Interpreting Physician: DR PATRICIA BENJAMIN M.D. Read on: Jan 08 201310:57A Transcribed by: VLR On: Jan 08 2013 1:09P Approved Electronically by: SOURAV Adames, DR GOMEZ on: Jan 08 20139:51P Ordering DR: LAITH HERRERA Attending DR: JOE OLMOS Historical Provider IMG XR PROCEDURES Final R esult documented in this encounter Visit Diagnoses Diagnosis Shortness of breath documented in this encounter
--- OUTSIDE RECORDS SUMMARY | 2024-05-31 23:32 | XMS_ITS | Encounter Summary ---
Author Organization 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 Gender Identity Not on file Sexual Orientation Not on file documented as of this encounter Plan of Treatment Not on file documented as of this encounter Procedures Procedure Name Priority Date/Time Associated Diagnosis Comments XR KNEE 4+ VW Routine 10/28/2012 3:52 PM CDT XR SPINE LUMBAR ROUTINE Routine 10/28/2012 3:52 PM CDT documented in this encounter Results * XR Knee 4+ VW (10/28/2012 3:52 PM CDT) Anatomical Region Laterality Modality N/A Radiographic Maria M ging 10/28/2012 3:52 PM CDT Narrative 10/28/2012 11:29 PM CDT XR Knee Min 4 Views R ??[id number] ??Acc#: ??[id number] DATE OF EXAM: ??Oct ??2012 CLINICAL HISTORY: Low back and right knee pain, no known injury. RESULT: Four views of the right knee demonstrate no evidence of fracture or dislocation. ??Chondrocalcinosis of the menisci is present. ??The joint spaces are normally aligned. ??Vascular calcification is noted. ??The soft tissues are otherwise normal. IMPRESSION: 1. MENISCAL CHONDROCALCINOSIS. 2. OTHERWISE NORMAL RIGHT KNEE. XR Lumbar Spine Routine ??[id number] ??Acc#: ??[id number] DATE OF EXAM: ??Mode ??2012 CLINICAL HISTORY: Same. RESULT: AP, lateral and bilateral oblique projections of the lumbar spine demonstrate mild degenerative endplate spurring diffusely. ??There is no evidence of fracture or spondylolisthesis. ??The soft tissues are normal. IMPRESSION: 1. DEGENERATIVE ENDPLATE CHANGES OF THE LUMBAR SPINE. 2. NO EVIDENCE OF FRACTURE OR MALALIGNMENT. Interpreting Physician: ??DR PATRICIA BENJAMIN M.D. ??Read on: ??Mode ??2012 4:28P Transcribed by: ??vam ??On: Mode ??2012 ??7:11P Approved Electronically by: ??SOURAV Adames, DR GOMEZ ??on: ??Mode ??2012 11:29P Ordering DR: FERNANDEZ HAZEL Attending DR: FERNANDEZ HAZEL Procedure Note Provider, MD Edmund - 09/17/2016 XR Knee Min 4 Views R [id number] Acc#: [id number] DATE OF EXAM: Oct 28 2012 CLINICAL HISTORY: Low back and right knee pain, no known injury. RESULT: Four views of the right knee demonstrate no evidence of fracture ordislocation. Chondrocalcinosis of the menisci is present. The jointspaces are normally aligned. Vascular calcification is noted. The softtissues are otherwise normal. IMPRESSION: 1. MENISCAL CHONDROCALCINOSIS. 2. OTHERWISE NORMAL RIGHT KNEE. XR Lumbar Spine Routine [id number] Acc#: [id number] DATE OF EXAM: Oct 28 2012 CLINICAL HISTORY: Same. RESULT: AP, lateral and bilateral oblique projections of the lumbar spinedemonstrate mild degenerative endplate spurring diffusely. There is noevidence of fracture or spondylolisthesis. The soft tissues are normal. IMPRESSION: 1. DEGENERATIVE ENDPLATE CHANGES OF THE LUMBAR SPINE. 2. NO EVIDENCE OF FRACTURE OR MALALIGNMENT. Interpreting Physician: DR PATRICIA BENJAMIN M.D. Read on: Oct 28 20124:28P Transcribed by: bernardino On: Oct 28 2012 7:11P Approved Electronically by: SOURAV Adames, DR GOMEZ on: Oct 28 201211:29P Ordering DR: FERNANDEZ HAZEL Attending DR: FERNANDEZ HAZEL us Historical Provider IMG XR PROCEDURES Final R esult * XR Lumbar Spine Routine (10/28/2012 3:52 PM CDT) Anatomical Region Laterality Modality L-spine N/A Radiographic Maria M ging 10/28/2012 3:52 PM CDT Narrative 10/28/2012 11:29 PM CDT XR Knee Min 4 Views R ??[id number] ??Acc#: ??[id number] DATE OF EXAM: ??Mode ??2012 CLINICAL HISTORY: Low back and right knee pain, no known injury. RESULT: Four views of the right knee demonstrate no evidence of fracture or dislocation. ??Chondrocalcinosis of the menisci is present. ??The joint spaces are normally aligned. ??Vascular calcification is noted. ??The soft tissues are otherwise normal. IMPRESSION: 1. MENISCAL CHONDROCALCINOSIS. 2. OTHERWISE NORMAL RIGHT KNEE. XR Lumbar Spine Routine ??[id number] ??Acc#: ??[id number] DATE OF EXAM: ??Mode ??2012 CLINICAL HISTORY: Same. RESULT: AP, lateral and bilateral oblique projections of the lumbar spine demonstrate mild degenerative endplate spurring diffusely. ??There is no evidence of fracture or spondylolisthesis. ??The soft tissues are normal. IMPRESSION: 1. DEGENERATIVE ENDPLATE CHANGES OF THE LUMBAR SPINE. 2. NO EVIDENCE OF FRACTURE OR MALALIGNMENT. Interpreting Physician: ??DR PATRICIA BENJAMIN M.D. ??Read on: ??Moed ??6 2012 4:28P Transcribed by: ??bernardino ??On: Oct ??6 2013 ??7:11P Approved Electronically by: ??SOURAV Adames, DR GOMEZ ??on: ??Mode ??6 2012 11:29P Ordering DR: FERNANDEZ HAZEL Attending DR: FERNANDEZ HAZEL Procedure Note Provider, Edmund, - 09/17/2016 XR Knee Min 4 Views R [id number] Acc#: [id number] DATE OF EXAM: Oct 28 2012 CLINICAL HISTORY: Low back and right knee pain, no known injury. RESULT: Four views of the right knee demonstrate no evidence of fracture ordislocation. Chondrocalcinosis of the menisci is present. The jointspaces are normally aligned. Vascular calcification is noted. The softtissues are otherwise normal. IMPRESSION: 1. MENISCAL CHONDROCALCINOSIS. 2. OTHERWISE NORMAL RIGHT KNEE. XR Lumbar Spine Routine [id number] Acc#: [id number] DATE OF EXAM: Oct 28 2012 CLINICAL HISTORY: Same. RESULT: AP, lateral and bilateral oblique projections of the lumbar spinedemonstrate mild degenerative endplate spurring diffusely. There is noevidence of fracture or spondylolisthesis. The soft tissues are normal. IMPRESSION: 1. DEGENERATIVE ENDPLATE CHANGES OF THE LUMBAR SPINE. 2. NO EVIDENCE OF FRACTURE OR MALALIGNMENT. Interpreting Physician: DR PATRICIA BENJAMIN M.D. Read on: Oct 28 20124:28P Transcribed by: bernardino On: Oct 28 2012 7:11P Approved Electronically by: SOURAV Adames, DR GOMEZ on: Oct 28 201211:29P Ordering DR: FERNANDEZ HAZEL Attending : FERNANDEZ HAZEL us Historical Provider MD AVILA XR PROCEDURES Final R esult documented in this encounter Visit Diagnoses Not on filedocumented in this encounter
--- OUTSIDE RECORDS SUMMARY | 2024-05-31 23:52 | XMS_ITS | Encounter Summary ---
Author Organization [facility] Address [address] [place] [address] Care Team Providers Care Crew Supervisor Name Role Phone Talia Bergeron BOWSTRING MAKER-INFUSION NURSE Primary Care Provider [phone] Reason for Visit * Auth/Cert (Routine) Specialty Diagnoses / Procedures Referred By Ellis smiley Referred To Contact Procedures ESOPHAGOGASTRODUODENOSCOPY (EGD) DIAGNOSTIC Referral ID Status Reason Start Date Expiration Date Visits Re quested Visits Authorized [id number] 1 1 Encounter Details Date Type Department Care Team (Late st Contact Info) Description 07/10/2022 12:54 PM SAFETY AND SECURITY MANAGER Anesthesia Event [facility] [id number] [place] [address] Juwan Corona MD [address] [place] [phone] Julián Massey APRN-CRNA [address] [place] [phone] Anesthesia Record Procedure Summary Procedure Name [...] this encounter Progress Notes * Felix Broderick, TAZ-GRAVITY METER OPERATOR - 07/10/2022 1:05 PM CST ANESTHESIA POSTOP [...] Care NOTABLE EVENTS: No notable events documented. TY AND SECURITY MANAGER * Felix Broderick, FRAN - 07/10/2022 1:04 [...] Care NOTABLE EVENTS: No notable events documented. TY AND SECURITY MANAGER * Felix Broderick, JUANYGRAVITY METER OPERATOR - 07/10/2022 12:30 PM CST ANESTHESIA PREOPERATIVE [...] procedural Anesthetic Plan was discussed with the GRAVITY METER OPERATOR and attending. BMI, Height, Weight Tobacco History [...] History: No past surgical history on file. FUEL VERIFICATION TECHNICIAN Status: No LMP for male patient. unknown OB History No obstetric history on file. Covid Vaccine: Lab Results: No results found for requested labs within last 120 days. No results found for requested labs within last 120 days. TY AND SECURITY MANAGER documented in this encounter Miscellaneous Notes * Addendum Note - Julián Massey APRN-CRNA - 07/10/2022 1:12 PM CST Addendum created 07/10/22 1312 by Julián Massey APRN-CRNA Intraprocedure Staff edited TY AND SECURITY MANAGER * Anesthesia Transfer of Care - Felix [...] report from the receiving PACUteam. FRAN Mayen TY AND SECURITY MANAGER documented in this encounter Plan of Treatment [...] Intra-op $ New Bag/Syringe 07/10/2022 12:33 PM SAFETY AND SECURITY MANAGER 0.9% NaCl injection Intravenous, PRN, Starting on Dana 07/10/22 at 1255, Until Dana 07/10/22 at 1304, Anesthesia Intra-op $ Given 07/10/2022 12:55 PM SAFETY AND SECURITY MANAGER 10 mL lidocaine PF (Xylocaine MPF) 1 % injection Intravenous, PRN, Starting on Dana 2 at 1255, Until Dana 2 at 1304, Anesthesia Intra-op $ Given 07/10/2022 12:55 PM SAFETY AND SECURITY MANAGER 100 mg propofol (Diprivan) injection Intravenous, CONTINUOUS PRN, Starting on Dana 07/10/22 at 1255, Until Dana 2 at 1304, Anesthesia Intra-op $ New Bag/Syringe 07/10/2022 12:55 PM SAFETY AND SECURITY MANAGER documented in this encounter Care Teams Crew Supervisor Relationship Specialty Start Date End Date Talia Bergeron APRN-INFUSION NURSE [address] [place], [place] [phone] PCP - General 02/15/15 documented as of this encounter
--- OUTSIDE RECORDS SUMMARY | 2024-05-31 23:52 | XMS_ITS | Clinical Summary ---
Author Organization [facility] Address [address] [place] [address] Phone Care Team Providers Care Stripping Machine Operator Name Role Phone Talia Bergeron APRN, SENIOR TRAINING SPECIALIST Primary Care Provider + Allergies No known [...] - 4.00 ng/mL 08/04/2016 5:48 PM CDT [facility] Blood specimen (specimen) Venipuncture / Unknown 08/04/2016 4:52 PM CDT 08/04/2016 4:53 PM CDT Narrative [facility] - 08/04/2016 5:48 PM CDT PSA NOTE: The PSA value should be used in conjunction with information available from clinical evaluation and other diagnostic procedures. Margot Gale MD CHEMISTRY ORDERABLES Final Result [facility] [address] [place] [address] from Last 3 Months or Most Recently Relevant to Health Maintenance Insurance MEDICARE [place]ICAID [place] Care Teams Stripping Machine Operator Relationship Specialty Start Date End Date Talia Bergeron, CHAIR FRAME BUILDER, SENIOR TRAINING SPECIALIST [address] [address] PCP - General Advanced Practice Nurse 02/05/16
--- OUTSIDE RECORDS SUMMARY | 2024-05-31 23:52 | XMS_ITS | Clinical Summary ---
Author Organization [facility] Address [address] [address] Phone Care Team Providers Care Manager French Name Role Phone VeenaManuel zhong Primary Care Provider [phone]- [phone] Social History Tobacco Use Types Packs/Day Years [...] Influenza Vaccine (#1) 2024 Insurance MEDICAID [place] [facility] ([id number]) Care Teams Manager French Relationship Specialty Start Date End Date Manuel Browning DO [address] [facility] [place] [address] PCP - General Family Medicine 11/20/20
--- OUTSIDE RECORDS SUMMARY | 2024-05-31 23:52 | XMS_ITS | Encounter Summary ---
Author Organization [facility] Address [address] [place] [address] Care Team Providers Care Seismic Observer Name Role Phone Talia Bergeron KEEPER HELPER-SLITTER OPERATOR Primary Care Provider [phone] Reason for Visit * Auth/Cert (Routine) Specialty Diagnoses / Procedures Referred By Ellis smiley Referred To Contact Procedures ESOPHAGOGASTRODUODENOSCOPY (EGD) DIAGNOSTIC Referral ID Status Reason Start Date Expiration Date Visits Re quested Visits Authorized [id number] 1 1 Encounter Details Date Type Department Care Team (Latest Contact Info) Description 07/10/2022 12:30 PM HEEL CASER - 07/10/2022 1:00 PM HEEL CASER Surgery [facility] [address] [place] [address] Gato Renteria MD [address] [place] [phone] ESOPHAGOGASTRODUODENOSCOPY (EGD) DIAGNOSTIC Surgery Details Date/Time Status Location OR Service Patient Class Case Class Case Type Trauma Case? 07/10/2022 12:30 PM Posted [facility] ENDO ENDO 01 Gastroenterology Surgery Day Care [...] Comments Blood Pressure 130/82 07/10/2022 12:56 PM HEEL CASER Pulse 67 07/10/2022 12:36 PM HEEL CASER Temperature 36.4 ??C (97.5 ??F) 07/10/2022 12:[address] Respiratory Rate 16 07/10/2022 12:36 PM HEEL CASER Oxygen Saturation 92% 07/10/2022 12:59 PM HEEL CASER Inhaled Oxygen Concentration - - Weight 68 kg (150 lb) 07/10/2022 12:36 PM HEEL CASER Height 177.8 cm (5' 10 ) 07/10/2022 12:36 PM HEEL CASER Body Mass Index 21.52 07/10/2022 12:36 PM HEEL CASER documented in this encounter Medications at Time [...] Date ??? COPD (chronic obstructive pulmonary disease) ([facility]) ??? Emphysema lung ([facility]) ??? History of drug abuse ([facility]) on methadaone for 12yrs ??? Osteoarthritis No [...] NaCl infusion Intravenous CONTINUOUS PRN Felix Broderick, TAZ-PATTERNMAKER PLASTICS New Bag at [id number] Physicial Exam: General appearance: alert, cooperative, no [...] Pain Procedure Planned: EGD Gato Renteria MD CASER documented in this encounter Plan of Treatment Scheduled Orders Name Type Priority Associated Diagnoses Orde r Schedule EGD GI Routine ONCE for 1 Occ urrences starting 07/10/2022 until 07/10/2022 documented as of this encounter Procedures Procedure Name Priority Date/Time Associated Diagnosis Comments HELICOBACTER PYLORI UREASE (STL) STAT 07/10/2022 1:04 PM HEEL CASER Diagnosis unknown [place] ED EGD FLEX TRANSORAL DX 07/10/2022 12:30 PM HEEL CASER EGD Routine 07/10/2022 11:52 AM HEEL CASER documented in this encounter Results * HELICOBACTER PYLORI UREASE (STL) (07/10/2022 1:04 PM HEEL CASER) Helicobacter pylori Urease Initial Negative Negative 07/11/2022 1:01 PM HEEL CASER [facility] Helicobacter pylori Urease Final Negative Negative 07/11/2022 1:01 PM HEEL CASER [facility] Comment:This is an appended report. These results have been appended to a previously preliminary verified report. Microbiology GASTRIC ANTRAL BIOPSY SPECIMEN / Unknown 07/10/2022 1:04 PM HEEL CASER 07/10/2022 4:04 PM HEEL CASER Gato Renteria MD LAB - MICROBIOLOGY O RDERABLES [facility] [address] [place] [address] * EGD (07/10/2022 11:52 AM HEEL CASER) Report Endoscopy POC _ Patient Name: Saravanan [...] Procedure Code(s): ? --- Professional --- ? 46673, Esophagogastrodu odenoscopy, flexible, transoral; with biopsy, ? single or multiple ? --- Technical --- ? 09301, Esophagogastrodu odenoscopy, flexible, transoral; with biopsy, ? [...] of stomach and duodenum CPT copyright 2019 [employer]. All rights reserved. The codes documented in this report are preliminary and upon weight control engineer review may be revised to meet current compliance requirements. Dr. Gato Renteria MD Gato Renteria MD 07/10/2022 1:14:43 PM This report has been signed electronically. Number of Addenda: 0 Note Initiated On: 07/10/2022 11:52 AM [facility] 07/10/2022 11:5 2 AM HEEL CASER Gato Renteria MD GI PROCEDURE ORDERAB LES [facility] ENDOSCOPY EMILY Trevino [id number] documented in this encounter Visit Diagnoses Not [...] Recently Administered Medications Times are shown in HEEL CASER. Scheduled Medication Order 07/08/2022 07/09/2022 07/10/2022 0.9% [...] (Due) documented in this encounter Care Teams Seismic Observer Relationship Specialty Start Date End Date Talia Bergeron, TAZ-SLITTER OPERATOR [address] [place], [place] [phone] PCP - General 02/15/15 documented as of this encounter
--- OUTSIDE RECORDS SUMMARY | 2024-05-31 23:52 | XMS_ITS | Patient Health Summary ---
Author Organization [facility] Address [address] [place] [address] Care Team Providers Care Mounter [employer] Name Role Phone Talia Bergeron SUPPLY SERVICE WORKER-STORE RECEIVING SPECIALIST Primary Care Provider [phone] Note from [facility] [place],non-owned Affiliates and Associated Physician Practices is amultiple site organization consisting of ambulatory clinics and hospital sitesin [place], [place], [place] and [place]. This disclosure is being madepursuant to the Care Everywhere program and may not contain all information available regarding this patient. Last updated 18.[facility] Allergies No known active allergies Medications * [...] Comments Blood Pressure 116/79 07/10/2022 1:30 PM HOSPICE ADMITTING CLERK Pulse 62 07/10/2022 1:30 PM HOSPICE ADMITTING CLERK Temperature 36.8 ??C (98.2 ??F) 07/10/2022 1:10 PM CS T Respiratory Rate 18 07/10/2022 1:30 PM HOSPICE ADMITTING CLERK Oxygen Saturation 94% 07/10/2022 1:30 PM HOSPICE ADMITTING CLERK Inhaled Oxygen Concentration - - Weight 68 kg (150 lb) 07/10/2022 12:36 PM HOSPICE ADMITTING CLERK Height 177.8 cm (5' 10 ) 07/10/2022 12:36 PM HOSPICE ADMITTING CLERK Body Mass Index 21.52 07/10/2022 12:36 PM HOSPICE ADMITTING CLERK Procedures * HELICOBACTER PYLORI UREASE (STL)(Performed 07/10/2022) Performed for Diagnosis unknown * [place] ED EGD FLEX TRANSORAL DX(Performed 07/10/2022) * EGD(Performed 07/10/2022) * XR HAND BILAT 2VW(Performed 02/03/2019) Performed for 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 Comment:This is an appended report. These results have been appended to a previously preliminary verified report. Microbiology GASTRIC ANTRAL BIOPSY SPECIMEN / Unknown 07/10/2022 1:04 PM HOSPICE ADMITTING CLERK 07/10/2022 4:04 PM HOSPICE ADMITTING CLERK Gato Renteria MD LAB - MICROBIOLOGY O RDERABLES [facility] [address] [place] [address] * EGD (07/10/2022 11:52 AM HOSPICE ADMITTING CLERK) Report Endoscopy POC _ Patient Name: Saravanan [...] Procedure Code(s): ? --- Professional --- ? 68554, Esophagogastrodu odenoscopy, flexible, transoral; with biopsy, ? single or multiple ? --- Technical --- ? 12201, Esophagogastrodu odenoscopy, flexible, transoral; with biopsy, ? [...] of stomach and duodenum CPT copyright 2019 [employer]. All rights reserved. The codes documented in this report are preliminary and upon internal combustion engine assembler review may be revised to meet current compliance requirements. Dr. Gato Renteria MD Gato Renteria MD 07/10/2022 1:14:43 PM This report has been signed electronically. Number of Addenda: 0 Note Initiated On: 07/10/2022 11:52 AM [facility] 07/10/2022 11:5 2 AM HOSPICE ADMITTING CLERK Gato Renteria MD GI PROCEDURE ORDERAB LES [facility] EMILY Trevino [id number] * XR HAND BILAT 2VW (02/03/2019 10:32 [...] PM Kwame Root [facility] Care Teams Mounter Brass Wind Instruments Relationship Specialty Start Date End Date Talia Bergeron, SUPPLY SERVICE WORKER-STORE RECEIVING SPECIALIST [address] [place], [place] [phone] PCP - General 02/15/15
--- OUTSIDE RECORDS SUMMARY | 2024-05-31 23:52 | XMS_ITS | Clinical Summary ---
Author Organization [email or web address] Address [address] [place] [address] Care Team Providers Care Gun Profiler Name Role Phone Talia Bergeron CARBONATION EQUIPMENT OPERATOR-FORMING PROCESS LINE WORKER Primary Care Provider +1 -[phone] Source Comments [email or web address],non-owned Affiliates and Associated Physician Practices is amultiple site organization consisting of ambulatory clinics and hospital sitesin [place], [place], [place] and [place]. This disclosure is being madepursuant to the Care Everywhere program and may not contain all information available regarding this patient. Last updated 18.[employer] Allergies No known active allergies Medications * [...] Comments Blood Pressure 116/79 07/10/2022 1:30 PM OWNER ORAL SURGEON Pulse 62 07/10/2022 1:30 PM OWNER ORAL SURGEON Temperature 36.8 ??C (98.2 ??F) 07/10/2022 1:10 PM CS T Respiratory Rate 18 07/10/2022 1:30 PM OWNER ORAL SURGEON Oxygen Saturation 94% 07/10/2022 1:30 PM OWNER ORAL SURGEON Inhaled Oxygen Concentration - - Weight 68 kg (150 lb) 07/10/2022 12:36 PM OWNER ORAL SURGEON Height 177.8 cm (5' 10 ) 07/10/2022 12:36 PM OWNER ORAL SURGEON Body Mass Index 21.52 07/10/2022 12:36 PM OWNER ORAL SURGEON Plan of Treatment Health Maintenance Due Date [...] age to complete this topic Care Teams Gun Profiler Relationship Specialty Start Date End Date Talia Bergeron, CARBONATION EQUIPMENT OPERATOR-FORMING PROCESS LINE WORKER [address] [place], [place] [id number] PCP - General 02/15/15
--- OUTSIDE RECORDS SUMMARY | 2024-05-31 23:52 | XMS_ITS | Encounter Summary ---
Author Organization [facility] Address [address] [place] [address] Care Team Providers Care Quality Technician Fiberglass Name Role Phone Talia Bergeron PROVIDER CONTRACTING CONSULTANT-RECORD FILING CLERK Primary Care Provider [phone] [phone] Reason for Visit * Auth/Cert (Routine) Specialty Diagnoses / Procedures Referred By Ellis smiley Referred To Contact Procedures ESOPHAGOGASTRODUODENOSCOPY (EGD) DIAGNOSTIC Referral ID Status Reason Start Date Expiration Date Visits Re quested Visits Authorized [id number] 1 1 Encounter Details Date Type Department Care Team (Late st Contact Info) Description 07/10/2022 11:20 AM MANUFACTURING TEST TECHNICIAN - 07/10/2022 1:38 PM MANUFACTURING TEST TECHNICIAN Hospital Encounter Pending sale to [facility] [address] [place] [address] Gato Renteria MD [facility] [place] [address] Surgery General Discharge Disposition: Home [...] Comments Blood Pressure 116/79 07/10/2022 1:30 PM MANUFACTURING TEST TECHNICIAN Pulse 62 07/10/2022 1:30 PM MANUFACTURING TEST TECHNICIAN Temperature 36.8 ??C (98.2 ??F) 07/10/2022 1:10 PM CS T Respiratory Rate 18 07/10/2022 1:30 PM MANUFACTURING TEST TECHNICIAN Oxygen Saturation 94% 07/10/2022 1:30 PM MANUFACTURING TEST TECHNICIAN Inhaled Oxygen Concentration - - Weight 68 kg (150 lb) 07/10/2022 12:36 PM MANUFACTURING TEST TECHNICIAN Height 177.8 cm (5' 10 ) 07/10/2022 12:36 PM MANUFACTURING TEST TECHNICIAN Body Mass Index 21.52 07/10/2022 12:36 PM MANUFACTURING TEST TECHNICIAN documented in this encounter Medications at Time [...] NaCl infusion Intravenous CONTINUOUS PRN Felix Broderick, TAZ-TACK CUTTER New Bag at Physicial Exam: General appearance: [...] Pain Procedure Planned: EGD Gato Renteria MD FACTURING TEST TECHNICIAN documented in this encounter Plan of Treatment Scheduled Orders Name Type Priority Associated Diagnoses Orde r Schedule EGD GI Routine ONCE for 1 Occ urrences starting 07/10/2022 until 07/10/2022 documented as of this encounter Procedures Procedure Name Priority Date/Time Associated Diagnosis Comments HELICOBACTER PYLORI UREASE (STL) STAT 07/10/2022 1:04 PM MANUFACTURING TEST TECHNICIAN Diagnosis unknown AK ED EGD FLEX TRANSORAL DX 07/10/2022 12:30 PM MANUFACTURING TEST TECHNICIAN EGD Routine 07/10/2022 11:52 AM MANUFACTURING TEST TECHNICIAN documented in this encounter Results * HELICOBACTER PYLORI UREASE (STL) (07/10/2022 1:04 PM MANUFACTURING TEST TECHNICIAN) Helicobacter pylori Urease Initial Negative Negative 07/11/2022 1:01 PM MANUFACTURING TEST TECHNICIAN [facility] Helicobacter pylori Urease Final Negative Negative 07/11/2022 1:01 PM MANUFACTURING TEST TECHNICIAN [facility] Comment:This is an appended report. These results have been appended to a previously preliminary verified report. Microbiology GASTRIC ANTRAL BIOPSY SPECIMEN / Unknown 07/10/2022 1:04 PM MANUFACTURING TEST TECHNICIAN 07/10/2022 4:04 PM MANUFACTURING TEST TECHNICIAN Gato Renteria MD LAB - MICROBIOLOGY O RDERABLES [facility] [address] [place] [id number] * EGD (07/10/2022 11:52 AM MANUFACTURING TEST TECHNICIAN) Report Endoscopy POC _ Patient Name: Saravanan [...] Procedure Code(s): ? --- Professional --- ? 66223, Esophagogastrodu odenoscopy, flexible, transoral; with biopsy, ? single or multiple ? --- Technical --- ? 73263, Esophagogastrodu odenoscopy, flexible, transoral; with biopsy, ? [...] of stomach and duodenum CPT copyright 2019 [employer]. All rights reserved. The codes documented in this report are preliminary and upon clinical coder review may be revised to meet current compliance requirements. Dr. Gato Renteria MD Gato Renteria MD 07/10/2022 1:14:43 PM This report has been signed electronically. Number of Addenda: 0 Note Initiated On: 07/10/2022 11:52 AM [facility] 07/10/2022 11:5 2 AM MANUFACTURING TEST TECHNICIAN Gato Renteria MD GI PROCEDURE ORDERAB LES Performing Organization Address City/State/[facility] Co de Phone Number [facility] [place] [address] documented in this encounter Visit Diagnoses Diagnosis [...] Recently Administered Medications Times are shown in MANUFACTURING TEST TECHNICIAN. Scheduled Medication Order 07/08/2022 07/09/2022 07/10/2022 0.9% NaCl injection 3 mL 3 mL, Intracatheter, PRE-PROCEDURE MULTIPLE, Starting on Dana 07/10/22 at 1247, Until Dana 07/10/22 at 1449, For Saline Lock flushes if one is inserted for Bronchoscopy/Endoscopy procedure., Pre-procedure (GI) Continuous Medication Order 07/08/2022 07/09/2022 07/10/2022 0.9% NaCl infusion at 20 mL/hr, Intravenous, CONTINUOUS, Starting on Dana 07/10/22 at 1245, Until Dana 07/10/22 at 1449, Pre-procedure (GI) 1245 (Due) documented in this encounter Care Teams Quality Technician Fiberglass Relationship Specialty Start Date End Date Talia Bergeron, PROVIDER CONTRACTING CONSULTANT-RECORD FILING CLERK [address] [place], [place] [id number] PCP - General 02/15/15 documented as of this encounter
--- OUTSIDE RECORDS SUMMARY | 2024-05-31 23:52 | XMS_ITS | Referral Summary ---
Author Organization [email or web address] Address [address] [place] [address] Care Team Providers Care Car Coupler Name Role Phone Talia Bergeron AVIATION WARFARE SYSTEMS OPERATOR-CUTTER OPERATOR TILE Primary Care Provider [phone] [phone] Source Comments [facility],non-owned Affiliates and Associated Physician Practices is amultiple site organization consisting of ambulatory clinics and hospital sitesin [place], [place], [place] and [place]. This disclosure is being madepursuant to the Care Everywhere program and may not contain all information available regarding this patient. Last updated 18.[employer] [email or web address] Allergies No known active allergies Medications * [...] Comments Blood Pressure 116/79 07/10/2022 1:30 PM DIPLOMA DENTAL ASSISTANT Pulse 62 07/10/2022 1:30 PM DIPLOMA DENTAL ASSISTANT Temperature 36.8 ??C (98.2 ??F) 07/10/2022 1:10 PM CS T Respiratory Rate 18 07/10/2022 1:30 PM DIPLOMA DENTAL ASSISTANT Oxygen Saturation 94% 07/10/2022 1:30 PM DIPLOMA DENTAL ASSISTANT Inhaled Oxygen Concentration - - Weight 68 kg (150 lb) 07/10/2022 12:36 PM DIPLOMA DENTAL ASSISTANT Height 177.8 cm (5' 10 ) 07/10/2022 12:36 PM DIPLOMA DENTAL ASSISTANT Body Mass Index 21.52 07/10/2022 12:36 PM DIPLOMA DENTAL ASSISTANT Plan of Treatment Not on file Care Teams Car Coupler Relationship Specialty Start Date End Date Talia Bergeron, AVIATION WARFARE SYSTEMS OPERATOR-CUTTER OPERATOR TILE [address] [place], [place] [phone] PCP - General 02/15/15
--- OUTSIDE RECORDS SUMMARY | 2024-05-31 23:52 | XMS_ITS | Encounter Summary ---
Author Organization [facility] Address [address] [place] [address] Care Team Providers Care Drag Out Worker Name Role Phone Talia Bergeron INSTRUCTOR WARPER-CIGAR WRAPPER TENDER AUTOMATIC Primary Care Provider [phone] [phone] Encounter Details Date Type Department Care Team (Latest Contact Info) Description 02/03/2019 10:18 AM CDT - 02/03/2019 11:59 PM CDT Hospital Encounter [facility] Imaging Services - Radiology [address] [place] [address] Kwame Root MD Discharge Disposition: Home or [...] (HCC) documented in this encounter Care Teams Drag Out Worker Relationship Specialty Start Date End Date Talia Bergeron, TAZ-CIGAR WRAPPER TENDER AUTOMATIC [address] [place], [place] [id number] PCP - General 02/15/15 documented as of this encounter
--- OUTSIDE RECORDS SUMMARY | 2024-05-31 23:53 | XMS_ITS | Encounter Summary ---
Author Organization [facility] Healthcare Address [address] [place] [address] Care Team Providers Care Bilingual Instructor Name Role Phone Mor Rodriguez MD Primary Care Provider [phone] [phone] Encounter Details Date Type Department Care Team [...] on file Legal Sex Male 11:14 AM COMPLETION ENGINEER Gender Identity Not on file Sexual [...] 1 tablet (75 mcg total) by mouth early intervention school psychologist before breakfast 30 tablet 2 01/18/2020 mirtazapine [...] on filedocumented in this encounter Care Teams Bilingual Instructor Relationship Specialty Start Date End Date Mor Rodriguez MD PCP - General Family Practice 04/17/21 documented as of this encounter
--- OUTSIDE RECORDS SUMMARY | 2024-05-31 23:53 | XMS_ITS | Encounter Summary ---
Author Organization [facility] Healthcare Address [address] [place] [address] Care Team Providers Care Supervisor Vendor Quality Name Role Phone Mor Rodriguez MD Primary Care Provider [phone] [phone] Reason for Visit * MRI/CAT/PET Scan (Routine) - Closed Specialty Diagnoses / Procedures Referred By Contac t Referred To Contact Radiology Diagnoses Disease of biliary tract, unspecified Procedures MRI Abdomen MRCP W WO Contrast MRI Abdomen MRCP W WO Contrast Incl 3D MRI Abdomen MRCP WO Contrast Gato Renteria MD [address] [place] [address] Phone: tel: fax: [address] [address] Referral ID Status Reason Start Date Expiration Date Visits Re quested Visits Authorized [id number] Closed 06/10/2022 12/07/2022 1 1 Encounter Details Date Type Department Care Team (Latest Contact Info) Description 06/23/2022 11:38 AM COLD MILL INSPECTOR - 06/23/2022 11:59 PM COLD MILL INSPECTOR Hospital Encounter [facility] [address] [place], [place] [id number] Disease of biliary tract, unspecified Discharge Disposition: [...] on file Legal Sex Male 11:14 AM COLD MILL INSPECTOR Gender Identity Not on file Sexual [...] 1 tablet (75 mcg total) by mouth concrete paver before breakfast 30 tablet 2 01/18/2020 mirtazapine [...] Read Routine (OP Routine) 06/23/2022 2:35 PM COLD MILL INSPECTOR Disease of biliary tract, unspecified POCT CREATININE FOR CONTRAST EVALUATION Routine 06/23/2022 1:15 PM COLD MILL INSPECTOR documented in this encounter Results * MRI Abdomen MRCP W WO Contrast (06/23/2022 2:35 PM COLD MILL INSPECTOR) Anatomical Region Laterality Modality Body N/A Magnetic Resonan ce 07/28/2022 1:18 PM COLD MILL INSPECTOR Addenda Addendum by Zee Ross MD on 07/28/2022 1:18 PM COLD MILL INSPECTOR The following changes should be made to [...] Zee Ross M.D. Impressions 06/23/2022 3:30 PM COLD MILL INSPECTOR 1. ??Overall likely unchanged dilatation of the [...] Zee Ross M.D. Narrative 06/23/2022 3:30 PM COLD MILL INSPECTOR EXAMINATION: MAGNETIC RESONANCE IMAGING OF THE ABDOMEN [...] 2. Large hiatal hernia. Dictated by: Tunde Pérez MD The radiology attending physician has personally reviewed this study, and had reviewed and/or edited this written report and agrees with it. Electronically signed by: Zee Ross M.D. us Gato Renteria MD IMG MRI PROCEDURES Edited Result - Final * POCT creatinine for contrast evaluation (06/23/2022 1:15 PM COLD MILL INSPECTOR) Creatinine, POC 1.3 0.6 - 1.3 mg/dL Blood 06/23/2022 1:15 PM COLD MILL INSPECTOR us Gato Renteria MD POINT OF CARE [...] 1 dose Contrast Given 06/23/2022 2:48 PM COLD MILL INSPECTOR 10 mL documented in this encounter Orders Medications Ordered That Carloz ht Not Have Been Administered Count Last Ordered Date First Ordered Date gadoxetate (EOVIST) injection 10 mL 1 06/23 documented in this encounter Care Teams Supervisor Vendor Quality Relationship Specialty Start Date End Date Mor Rodriguez MD PCP - General Family Practice 04/17/21 documented as of this encounter
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
--- OUTSIDE RECORDS SUMMARY | 2024-05-31 23:53 | XMS_ITS | Encounter Summary ---
Author Organization [facility] [facility] Address [address] [place] [phone] Phone Care Team Providers Care Fire Operations Forester Name Role Phone Manuel Browning DO Primary Care Provider [phone]- [phone] Encounter Details Date Type Department Care Team (Late st Contact Info) Description 11/20/2020 Orders Only [employer] [facility] [address] [place] [phone] Mj Warren MD Other specified abnormal [...] chemistry documented in this encounter Care Teams Fire Operations Forester Relationship Specialty Start Date End Date Manuel Browning DO [address] [place] [address] PCP - General Family Medicine 11/20/20 documented as of this encounter
--- OUTSIDE RECORDS SUMMARY | 2024-05-31 23:53 | XMS_ITS | Encounter Summary ---
Author Organization [facility] Healthcare Address [address] [place] [address] Care Team Providers Care Biosolids Management Technician Name Role Phone Mitchell Gutierrez DO Primary Care Provider [phone] [phone] Reason for Referral * Diagnostic Imaging (Routine) - Closed Specialty Diagnoses / Procedures Referred By Ellis smiley Referred To Contact Radiology Diagnoses Abnormal weight loss Procedures CT Abdomen Pelvis WO Contrast Mitchell Gutierrez DO Phone: tel: fax: [address] [address] Referral ID Status Reason Start Date Expiration Date Visits Re quested Visits Authorized [id number] Closed 05/11/2020 06/10/2021 1 1 SION COMMANDER Reason for Visit * Diagnostic Imaging (Routine) - Closed Specialty Diagnoses / Procedures Referred By Ellis smiley Referred To Contact Radiology Diagnoses Abnormal weight loss Procedures CT Abdomen Pelvis WO Contrast Mitchell Gutierrez DO Phone: tel: fax: [address] [phone] Referral ID Status Reason Start Date Expiration Date Visits Re quested Visits Authorized [id number] Closed 05/11/2020 06/10/2021 1 1 Encounter Details Date Type Department Care Team (Latest Contact Info) Description 05/22/2020 7:00 AM DIVISION COMMANDER - 05/22/2020 7:23 AM DIVISION COMMANDER Hospital Encounter [facility] [address] [place] [address] Mitchell Gutierrez DO [address] [place] [address] Abnormal weight loss Discharge Disposition: Discharge to [...] on file Legal Sex Male 11:14 AM DIVISION COMMANDER Gender Identity Not on file Sexual Orientation [...] 1 tablet (75 mcg total) by mouth jewelry setter before breakfast 30 tablet 2 01/18/2020 mirtazapine [...] Read Routine (OP Routine) 05/22/2020 7:51 AM DIVISION COMMANDER Abnormal weight loss documented in this encounter Results * CT Abdomen Pelvis WO Contrast (05/22/2020 7:51 AM DIVISION COMMANDER) Anatomical Region Laterality Modality Body N/A Computed Tomogra phy 05/22/2020 8:05 AM DIVISION COMMANDER Impressions 05/22/2020 8:28 AM DIVISION COMMANDER 1. ??Large, debris-filled hiatal hernia present. ??Scattered [...] Felix Galvez M.D. Narrative 05/22/2020 8:28 AM DIVISION COMMANDER EXAMINATION: CT ABDOMEN PELVIS WO CONTRAST ORDERING [...] weight documented in this encounter Care Teams Biosolids Management Technician Relationship Specialty Start Date End Date Mitchell Gutierrez DO PCP - General 05/14/20 04/16/21 documented as of this encounter
--- OUTSIDE RECORDS SUMMARY | 2024-05-31 23:53 | XMS_ITS | Encounter Summary ---
Author Organization [facility] [employer] [facility] Address [address] [place] [phone] Phone Care Team Providers Care Manager Fleet Name Role Phone Manuel Browning DO Primary Care Provider [phone]- [phone] Encounter Details Date Type Department Care Team (Late st Contact Info) Description 11/22/2020 Documentation Only Gates [employer] [facility] [address] [phone] Kimberly Kaplan [facility] [address] [facility] [address] [place] [address] Social History Tobacco Use Types [...] on filedocumented in this encounter Care Teams Manager Fleet Relationship Specialty Start Date End Date Manuel Browning DO [address] [place] [address] PCP - General Family Medicine 11/20/20 documented as of this encounter
--- OUTSIDE RECORDS SUMMARY | 2024-05-31 23:53 | XMS_ITS | Clinical Summary ---
Author Organization [facility] Address 1 [place] [address] Care Team Providers Care Instructional Technology Specialist Name Role Phone Mor Rodriguez MD Primary Care Provider +1 [phone] Allergies Active Allergy Reactions Criticality Noted Date [...] 1 tablet (75 mcg total) by mouth electronics engineer before breakfast 30 tablet 2 0 Active [...] viral hepatitis Depression Melena Legionnaire's disease (CMS/HCC) ([facility]) 2018 Social History Tobacco Use Types [...] on file Legal Sex Male 11:14 AM ELECTRIC OPERATOR Gender Identity Not on file Sexual [...] Body Mass Index 19.8 04/17/2021 10:58 AM ELECTRIC OPERATOR Plan of Treatment Health Maintenance Due [...] Comments PSA DIAGNOSTIC Routine 05/22/2020 8:[address] ABDOMEN PELVIS WO CONTRAST Schedule Routine, Read Routine (OP Routine) 05/22/2020 7:51 AM ELECTRIC OPERATOR Abnormal weight loss COLONOSCOPY 11/24/2017 9:42 AM CDT from Last 3 Months or Most Recently Relevant to Health Maintenance Results * PSA diagnostic (05/22/2020 8:59 AM ELECTRIC OPERATOR) PSA-Total 0.50 <=5.40 ng/mL [facility] ([place]) Comment: Interpretive Data ?AGE ? SEX ?REFERENCE INTERVAL 0 minutes-150 years ?Female ?None 0 minutes-49 years ? Male ?None ? 50-59 years ? Male ?0-3.90 ? 60-69 years ? Male ?0-5.40 ? 70-79 years ? Male ?0-6.20 ? 80-150 years ?Male ?0-6.20 Current interpretive data last revised 2018. Testing performed by: [facility], [address] [place] [address]., [id number] Blood specimen (specimen) 05/22/2020 8:59 AM ELECTRIC OPERATOR 05/22/2020 2:20 PM ELECTRIC OPERATOR us Mitchell Gutierrez DO LAB BLOOD ORDERABLES Cecilia caruso Result [facility] ([place]) 1 [facility] Department [place] [address] * CT Abdomen Pelvis WO Contrast (05/22/2020 7:51 AM ELECTRIC OPERATOR) Anatomical Region Laterality Modality Body N/A Computed Tomogra phy 05/22/2020 8:05 AM ELECTRIC OPERATOR Impressions 05/22/2020 8:28 AM ELECTRIC OPERATOR 1. ??Large, debris-filled hiatal hernia present. [...] Felix Galvez M.D. Narrative 05/22/2020 8:28 AM ELECTRIC OPERATOR EXAMINATION: CT ABDOMEN PELVIS WO CONTRAST [...] Felix Galvez M.D. us Mitchell Gutierrez [place] [facility] [place]EDURES Final R esult * COLONOSCOPY (11/24/2017 9:42 AM CDT) Anatomical Region Laterality Modality Other Narrative Procedure Note Dewayne Alaniz MD - 11/24/2017 9:[address] [facility] Patient Name: Christal Lanza Procedure Date: 11/24/2017 9:42 AM Date of : 1955 Admit Type: Outpatient Age: 62 Gender: Male Attending MD: Dewayne Alaniz MD Room: [facility] ENDOSCOPY CAPSULE Note Status: Finalized Patient Profile: [...] passed under direct vision.The Pediatric Colonoscope [id number] was introduced through the anus and advanced [...] 9:42 AM Procedure Code(s): --- Professional --- 48687, Colonoscopy, flexible; with biopsy, single or multiple Diagnosis Code(s): --- Professional --- K64.8, Other hemorrhoids R63.4, Abnormal weight loss R19.7, Diarrhea, unspecified CPT copyright 2017 [employer]. All rights reserved. The codes documented in this report are preliminary and upon physician coder reviewmay be revised to meet current compliance requirements. Recognized by the [employer] for promoting quality in endoscopy Dewayne Alaniz MD ENDOSCOPY PROCEDURES Final Result from Last 3 Months or Most Recently Relevant to Health Maintenance Insurance MEDICARE [facility] Address: [id number] [place] [address] [facility] [employer] CHOICE MEDICARE PPO AETNA MEDICARE GOLD IDPA AETNA MEDICARE GOLD IDPA AETNA MEDICARE GOLD Advance Directives For more information, please contact: [phone] * Full Code (Latest Code Status on File) Date Activated Date Inactivated Comments 04/17/2021 11:12 AM 04/17/2021 5:26 PM * Full Code Date Activated Date Inactivated Comments 01/09/2020 5:16 PM 01/17/2020 6:36 PM * Full Code Date Activated Date Inactivated Comments 11/24/2017 8:23 AM 11/24/2017 1:42 PM Care Teams Instructional Technology Specialist Relationship Specialty Start Date End Date Mor Rodriguez MD PCP - General Family Practice 04/17/21
--- OUTSIDE RECORDS SUMMARY | 2024-05-31 23:53 | XMS_ITS | Encounter Summary ---
Author Organization [facility] Healthcare Address [address] [place] [address] Care Team Providers Care Vacuum Conditioner Operator Name Role Phone Mor Rodriguez MD Primary Care Provider +1 [phone] Encounter Details Date Type Department Care Team (Latest Contact Info) Description 11/04/2021 2:39 PM CDT - 11/04/2021 5:07 PM CDT Hospital Encounter [facility] [address] [place] [address] Discharge Disposition: Discharge to home or self [...] on file Legal Sex Male 11:14 AM WASTEWATER OPERATOR Gender Identity Not on file Sexual [...] 1 tablet (75 mcg total) by mouth acrobatic rigger before breakfast 30 tablet 2 01/18/2020 mirtazapine [...] PM T: ??11/04/2021 3:16 PM Report ID: [id number] Reading Location: ??[id number] Procedure Note Saravanan Herrera MD - 11/04/2021 [...] Saravanan Herrera M.D. KT: BREN Report ID: [id number] Reading Location: [id number] us Geovanni Lopez MD IMG XR PROCEDURES [...] PM T: ??11/04/2021 3:17 PM Report ID: [id number] Reading Location: ??[id number] Procedure Note Saravanan Herrera MD - 11/04/2021 [...] Saravanan Herrera M.D. KT: BREN Report ID: [id number] Reading Location: [id number] Geovanni Lopez MD IMG XR PROCEDURES Final [...] PM T: ??11/04/2021 3:14 PM Report ID: [id number] Reading Location: ??[id number] Procedure Note Saravanan Herrera MD - 11/04/2021 [...] Saravanan Herrera M.D. KT: BREN Report ID: [id number] Reading Location: [id number] us Geovanni Lopez MD IMG XR PROCEDURES Final Result documented in this encounter Visit Diagnoses Not on filedocumented in this encounter Care Teams Vacuum Conditioner Operator Relationship Specialty Start Date End Date Mor Rodriguez MD PCP - General Family Practice 04/17/21 documented as of this encounter
--- OUTSIDE RECORDS SUMMARY | 2024-05-31 23:53 | XMS_ITS | Encounter Summary ---
Author Organization [facility] Address [address] [place] [address] Phone Care Team Providers Care Telegraph Inspector Name Role Phone Manuel Browning DO Primary Care Provider [phone]- [phone] Encounter Details Date Type Department Care Team (Late st Contact Info) Description 12/06/2020 Documentation Only [place] [facility] [address] [address] Allen Last DO [address] [place] [address] [address] [place] [address] Social History Tobacco Use Types [...] on filedocumented in this encounter Care Teams Telegraph Inspector Relationship Specialty Start Date End Date Manuel Browning DO [address] [place] [address] PCP - General Family Medicine 11/20/20 documented as of this encounter
--- OUTSIDE RECORDS SUMMARY | 2024-05-31 23:53 | XMS_ITS | Encounter Summary ---
Author Organization [facility] Healthcare Address [address] [place] [address] Care Team Providers Care Staple Side Laster Name Role Phone Manuel Browning DO Primary Care Provider [phone] [phone] Encounter Details Date Type Department Care Team (Late st Contact Info) Description 05/21/2020 Telephone [facility] 1 [place] [address] Erendira Browne RT Social History Tobacco Use [...] on file Legal Sex Male 11:14 AM FIBERGLASS PRODUCT TESTER Gender Identity Not on file Sexual Orientation Not on file documented as of this encounter Miscellaneous Notes * Telephone Encounter - Erendira Browne RT - 2020 6:46 PM CST ... RGLASS PRODUCT TESTER documented in this encounter Plan of Treatment Not on file documented as of this encounter Visit Diagnoses Not on filedocumented in this encounter Care Teams Staple Side Laster Relationship Specialty Start Date End Date Manuel Browning DO PCP - General 05/14/20 04/16/21 documented as of this encounter
--- OUTSIDE RECORDS SUMMARY | 2024-05-31 23:53 | XMS_ITS | Encounter Summary ---
Author Organization [facility] , [facility] Address [address] [address] Phone Care Team Providers Care Nurse Special Name Role Phone Manuel Browning DO Primary Care Provider [phone]- [phone] Reason for Referral * Imaging (Routine) - Closed Specialty Diagnoses / Procedures Referred By Ellis smiley Referred To Contact Diagnoses Acute injury of kidney Chronic bronchitis, not otherwise specified (HCC) Gastroesophageal reflux disease Tobacco use Hypothyroidism, not otherwise specified Procedures Ultrasound renal complete Allen Last DO Phone: tel: fax: Referral ID Status Reason Start Date Expiration Date Visits Re quested Visits Authorized [id number] Closed 11/21/2020 05/20/2021 1 1 Reason for Visit * Consultation (Routine) - Closed Specialty Diagnoses / Procedures Referred By Ellis smiley Referred To Contact Nephrology Diagnoses Other specified abnormal finding of blood chemistry Manuel Browning DO [address] [facility] [address] [place] [address] Phone: tel: fax: Allen Last DO Phone: tel: fax: Referral ID Status Reason Start Date Expiration Date V isits Requested Visits Authorized [id number] Closed Consult and Treat 11/20/2020 11/20/2021 6 6 Encounter Details Date Type Department Care Team (Late st Contact Info) Description 11/21/2020 2:00 PM CDT Office Visit [facility], [facility] [address] [facility] 1 [place] [address] Allen Last, [address] [facility] 1 [place] [address] Acute injury of kidney (HCC) [...] stop PPI Omeprazole - kidney ultrasound at [facility] in [place]. - return with labs in 1 month [...] not otherwise specified Expected: 11/21/2020, Expires: 12/21/2021 [place]son/Lambda free LT chains w/ratio Lab Routine Acute [...] specified documented in this encounter Care Teams Nurse Special Relationship Specialty Start Date End Date Manuel Browning DO [address] [facility] [address] [place] [address] PCP - General Family Medicine 11/20/20 documented as of this encounter
--- OUTSIDE RECORDS SUMMARY | 2024-05-31 23:53 | XMS_ITS | Encounter Summary ---
Author Organization [facility] Healthcare Address [address] [place] [address] Care Team Providers Care Cable Weaver Name Role Phone Mor Rodriguez MD Primary Care Provider [phone] [phone] Reason for Visit * Auth/Cert Specialty Diagnoses / Procedures Referred By Contac t Referred To Contact Diagnoses Other specified diseases of biliary tract Other specified diseases of biliary tract [K83.8] Procedures EUS Referral ID Status Reason Start Date Expiration Date Visits Re quested Visits Authorized [id number] 1 1 Encounter Details Date Type Department Care Team (Latest Contact Info) Description 04/17/2021 11:00 AM APPRENTICESHIP TRAINING REPRESENTATIVE - 04/17/2021 11:30 AM APPRENTICESHIP TRAINING REPRESENTATIVE Surgery [facility] [address] [place] [phone] Kwame Camarillo MD [address] [facility] [address] [place] [address] ESOPHAGOGASTRODUODENOSCOPY ULTRASOUND EXAM LIMITED Surgery Details Date/Time Status Location OR Service Patient Class Case Class Case Type Trauma Case? 04/17/2021 11:00 AM Posted [facility] ENDOSCOPY GI 06 Gastroenterology Outpatient Elective Panel [...] on file Legal Sex Male 11:14 AM APPRENTICESHIP TRAINING REPRESENTATIVE Gender Identity Not on file Sexual Orientation Not on file documented as of this encounter Last Filed Vital Signs Vital Sign Reading Time Taken Comments Blood Pressure 127/72 04/17/2021 10:58 AM APPRENTICESHIP TRAINING REPRESENTATIVE Pulse 73 04/17/2021 10:58 AM APPRENTICESHIP TRAINING REPRESENTATIVE Temperature 36.5 ??C (97.7 ??F) 04/17/2021 11:[address] Respiratory Rate 10 04/17/2021 10:58 AM APPRENTICESHIP TRAINING REPRESENTATIVE Oxygen Saturation 95% 04/17/2021 10:58 AM APPRENTICESHIP TRAINING REPRESENTATIVE Inhaled Oxygen Concentration - - Weight 63.5 kg (140 lb) 04/17/2021 10:58 AM APPRENTICESHIP TRAINING REPRESENTATIVE Height 179.1 cm (5' 10.5 ) 04/17/2021 10:[address] Body Mass Index 19.8 04/17/2021 10:58 AM APPRENTICESHIP TRAINING REPRESENTATIVE documented in this encounter Medications at Time [...] 1 tablet (75 mcg total) by mouth burrer hand before breakfast 30 tablet 2 01/18/2020 mirtazapine [...] 1 tablet (75 mcg total) by mouth burrer hand before breakfast 30 tablet 2 ??? mirtazapine [...] dilation Procedure Planned: EUS Kwame Camarillo MD ENTICESHIP TRAINING REPRESENTATIVE documented in this encounter Procedure Notes * Kwame Camarillo MD - 04/17/2021 11:48 AM CSTAssociated Order(s): EUS ENDOSCOPY LAB Patient Name: Saravnaan Lanza Procedure Date: 04/17/2021 11:48 AM Admit Type: Outpatient Room: [facility] Date of : 1955 Instrument Name: [id number] Gender: Male Note Status: Maintenance Clerk Override Procedure: Upper EUS Indications: Common bile [...] 04/17/2021 11:48 AM Scope In: Scope Out: ENTICESHIP TRAINING REPRESENTATIVE ENTICESHIP TRAINING REPRESENTATIVE documented in this encounter Plan of Treatment Pending Results Name Type Priority Associated Diagnoses Date /Time US Endoscopy Endo Imaging Procedure IP Routine Other specified diseases of biliary tract 04/17/2021 12:21 PM APPRENTICESHIP TRAINING REPRESENTATIVE documented as of this encounter Procedures Procedure Name Priority Date/Time Associated Diagnosis Comments US ENDOSCOPIC IP Routine 04/17/2021 12:21 PM APPRENTICESHIP TRAINING REPRESENTATIVE Other specified diseases of biliary tract ESOPHAGOGASTRODUODENOSCOPY ULTRASOUND EXAM LIMITED 04/17/2021 12:03 PM APPRENTICESHIP TRAINING REPRESENTATIVE Other specified diseases of biliary tract EUS 04/17/2021 11:48 AM APPRENTICESHIP TRAINING REPRESENTATIVE documented in this encounter Results * EUS (04/17/2021 11:48 AM APPRENTICESHIP TRAINING REPRESENTATIVE) Anatomical Region Laterality Modality Other Narrative Procedure Note Kwame Camarillo MD - 04/17/2021 11:48 AM CST ENDOSCOPY LAB Patient Name: Saravanan Lanza Procedure Date: 04/17/2021 11:48AM Admit Type: Outpatient Room: [facility] Date of : 1955 Instrument Name: [id number] Gender: Male Note Status: Maintenance Clerk Override Procedure: Upper EUS Indications: Common bile [...] Thu04/17/21 at 1145 Restarted 04/17/2021 12:17 PM APPRENTICESHIP TRAINING REPRESENTATIVE Rate/Dose Verify 04/17/2021 11:58 AM APPRENTICESHIP TRAINING REPRESENTATIVE 30 mL/ hr New Bag 04/17/2021 11:12 AM APPRENTICESHIP TRAINING REPRESENTATIVE 30 mL/hr 30 mL/hr sodium chloride 0.9% [...] Recently Administered Medications Times are shown in APPRENTICESHIP TRAINING REPRESENTATIVE. Scheduled Medication Order 04/15/2021 04/16/2021 04/17/2021 sodium [...] 04/17/2021 documented in this encounter Care Teams Cable Weaver Relationship Specialty Start Date End Date Mor Rodriguez MD PCP - General Family Practice 04/17/21 documented as of this encounter
--- OUTSIDE RECORDS SUMMARY | 2024-05-31 23:53 | XMS_ITS | Encounter Summary ---
Author Organization [facility] , [facility] Address [address] [place] [address] Phone Care Team Providers Care Trimming Inspector Name Role Phone Manuel Browning DO Primary Care Provider +1- [phone] Reason for Referral * Consultation (Routine) - Closed Specialty Diagnoses / Procedures Referred By Contcharly t Referred To Contact Nephrology Diagnoses Other specified abnormal finding of blood chemistry Manuel Browning DO [address] [place] [address] Phone: tel: fax: Allen Last DO Phone: tel: fax: Referral ID Status Reason Start Date Expiration Date V isits Requested Visits Authorized [id number] Closed Consult and Treat 11/20/2020 11/20/2021 6 6 Encounter Details Date Type Department Care Team (Late st Contact Info) Description 11/20/2020 Transcribe Orders [facility], [facility] [address] [place] [address] Mj Warren MD Other specified abnormal [...] Primary documented in this encounter Care Teams Trimming Inspector Relationship Specialty Start Date End Date Manuel Browning DO [address] [facility] [address] [place] [address] PCP - General Family Medicine 11/20/20 documented as of this encounter
--- OUTSIDE RECORDS SUMMARY | 2024-05-31 23:53 | XMS_ITS | Encounter Summary ---
Author Organization [facility] Healthcare Address [address] [place] [address] Care Team Providers Care Cleaning Team Member Name Role Phone Mor Rodriguez MD Primary Care Provider +1 -[phone] Reason for Visit * Auth/Cert Specialty Diagnoses / Procedures Referred By Contac t Referred To Contact Diagnoses Other specified diseases of biliary tract Other specified diseases of biliary tract [K83.8] Procedures EUS Referral ID Status Reason Start Date Expiration Date Visits Re quested Visits Authorized [id number] 1 1 Encounter Details Date Type Department Care Team (Late st Contact Info) Description 04/17/2021 11:58 AM TRAPPER BIRD Anesthesia Event [facility] [place] [phone] Mena Resendiz MD [address] [place] [address] Anesthesia Record Procedure Summary Procedure Name Responsible [...] on file Legal Sex Male 11:14 AM TRAPPER BIRD Gender Identity Not on file Sexual Orientation Not on file documented as of this encounter OR Notes * Anesthesia Postprocedure Evaluation - Traci Lamb CRNA - 04/17/2021 12:25 PM CST Patient: Saravanan Lanza Procedure Summary Date: 04/17/21 Room / Location: [facility] / [facility]COPY Anesthesia Start: 1158 Anesthesia Stop: [...] - patient participated Level of consciousness: arouses agronomy technician and follows simple commands Pain score: 0 Pain management: adequate Airway patency: adequate Cardiovascular status: acceptable Respiratory status: acceptable Hydration status: acceptable Pt is: normothermic Nausea/Vomiting status: none No complications documented. PER BIRD * Anesthesia Preprocedure Evaluation - Mena Resendiz [...] 1 tablet (75 mcg total) by mouth delivery driver/customer service before breakfast methadone (DOLOPHINE) 10 mg tablet [...] Medication protocol when under care of a LABORATORY ADMINISTRATIVE DIRECTOR Planned anesthesia: General/TIVA Team communication plan: mask Induction: Induction: intravenous. Postoperative Plan: No plan for postoperative opioid use. No postoperative mechanical ventilation intended. Patient's planned disposition post procedure is Outpatient. Informed Consent: Discussed plan with LABORATORY ADMINISTRATIVE DIRECTOR. Anesthesia plan and risks discussed with [...] and agree to proceed. All questions answered. PER BIRD PER BIRD documented in this encounter Plan of Treatment Not on file documented as of this encounter Visit Diagnoses Not on filedocumented in this encounter Administered Medications Inactive Administered Medications - up to 3 most recent administrations Medication Order MAR Action Action Date Dose Rate Site Lactated Ringer's (LR) infusion 30 mL/hr, intravenous, Continuous, Starting on Thu04/17/21 at 1145 Restarted 04/17/2021 12:17 PM TRAPPER BIRD Rate/Dose Verify 04/17/2021 11:58 AM TRAPPER BIRD 30 mL/ hr New Bag 04/17/2021 11:12 AM TRAPPER BIRD 30 mL/hr 30 mL/hr lidocaine (cardiac) (XYLOCAINE) preservative free injection intravenous, As needed, Starting on Thu04/17/21 at 1205, Anesthesia Intra-op, Indications: Ventricular ArrhythmiasIndications:Ventricular Arrhythmias Given 04/17/2021 12:05 PM TRAPPER BIRD 3 mL propofoL (DIPRIVAN) 10 mg/mL IV intravenous, As needed, Starting on Thu04/17/21 at 1205, Anesthesia Intra-op Given 04/17/2021 12:10 PM TRAPPER BIRD 100 m g Given 04/17/2021 12:05 PM TRAPPER BIRD 100 mg documented in this encounter Care Teams Cleaning Team Member Relationship Specialty Start Date End Date Mor Rodriguez MD PCP - General Family Practice 04/17/21 documented as of this encounter
--- OUTSIDE RECORDS SUMMARY | 2024-05-31 23:53 | XMS_ITS | Encounter Summary ---
Author Organization [facility] Healthcare Address [address] [place] [address] Care Team Providers Care Clerical Adjuster Name Role Phone Manuel Browning DO Primary Care Provider [phone] -[phone] Reason for Visit * Diagnostic Imaging (Routine) - Closed Specialty Diagnoses / Procedures Referred By Contac t Referred To Contact Diagnoses Collapsed vertebra, not elsewhere classified, site unspecified, initial encounter for fracture (HCC) Procedures Dexa Axial Skeleton Bone Density 1 or 2 Site Dexa Axial and Forearm Bone Density Scan Transcribed Order, Provider [address] [address] Referral ID Status Reason Start Date Expiration Date Visits Re quested Visits Authorized [id number] Closed 05/11/2020 06/10/2021 1 1 Encounter Details Date Type Department Care Team (Latest Contact Info) Description 05/22/2020 7:24 AM BIOMASS POWER PLANT SUPERINTENDENT - 05/22/2020 11:59 PM BIOMASS POWER PLANT SUPERINTENDENT Hospital Encounter [facility] [address] [place] [address] Manuel Browning DO [address] [place] [address] Collapsed vertebra, not elsewhere classified, site unspecified, [...] on file Legal Sex Male 11:14 AM BIOMASS POWER PLANT SUPERINTENDENT Gender Identity Not on file Sexual Orientation [...] 1 tablet (75 mcg total) by mouth campus monitor before breakfast 30 tablet 2 01/18/2020 mirtazapine [...] Read Routine (OP Routine) 05/22/2020 8:27 AM BIOMASS POWER PLANT SUPERINTENDENT Collapsed vertebra, not elsewhere classified, site unspecified, initial encounter for fracture ([facility]) documented in this encounter Results * Dexa Axial Skeleton Bone Density 1 or 2 Site (05/22/2020 8:27 AM BIOMASS POWER PLANT SUPERINTENDENT) Anatomical Region Laterality Modality Body N/A Other 05/22/2020 8:29 AM BIOMASS POWER PLANT SUPERINTENDENT Impressions 05/22/2020 8:30 AM BIOMASS POWER PLANT SUPERINTENDENT According to the World Health Organization criteria, [...] Felix Valiente M.D. Narrative 05/22/2020 8:30 AM RUST STUDY DESCRIPTION: DEXA AXIAL SKELETON BONE DENSITY 1 OR MORE SITES CLINICAL INDICATIONS: Smoking, prior fracture, rheumatoid arthritis, chronic obstructive pulmonary disease. COMPARISON: None TECHNIQUE: Dual x-ray absorptiometry (DEXA) was performed using [employer] system. GENERAL GUIDELINES: According to WHO guidelines, [...] Dual x-ray absorptiometry (DEXA) was performed using [employer] system. GENERAL GUIDELINES: According to WHO guidelines, [...] by: Felix Valiente M.D. Manuel Browning DO [facility] DXA PROCEDURES Final Result documented in this encounter Visit Diagnoses Diagnosis Collapsed vertebra, not elsewhere classified, site unspecified, initial encounter for fracture (HCC) documented in this encounter Care Teams Clerical Adjuster Relationship Specialty Start Date End Date Manuel Browning DO PCP - General 05/14/20 04/16/21 documented as of this encounter
--- OUTSIDE RECORDS SUMMARY | 2024-05-31 23:53 | XMS_ITS | Encounter Summary ---
Author Organization [facility] Healthcare Address [address] [place] [address] Care Team Providers Care Hemodialysis Patient Care Specialist Name Role Phone Mor oRdriguez MD Primary Care Provider [phone] [phone] Reason for Visit * Auth/Cert Specialty Diagnoses / Procedures Referred By Contac t Referred To Contact Diagnoses Other specified diseases of biliary tract Other specified diseases of biliary tract [K83.8] Procedures EUS Referral ID Status Reason Start Date Expiration Date Visits Re quested Visits Authorized [id number] 1 1 Encounter Details Date Type Department Care Team (Latest Contact Info) Description 04/17/2021 9:58 AM MANAGER CLINICAL - 04/17/2021 1:21 PM MANAGER CLINICAL Hospital Encounter [facility] [address] [place] [address] Kwame Camarillo MD [address] [facility] [address] [place] [address] Other specified diseases of biliary tract Discharge [...] on file Legal Sex Male 11:14 AM MANAGER CLINICAL Gender Identity Not on file Sexual Orientation Not on file documented as of this encounter Last Filed Vital Signs Vital Sign Reading Time Taken Comments Blood Pressure 127/85 04/17/2021 12:55 PM MANAGER CLINICAL Pulse 64 04/17/2021 12:55 PM MANAGER CLINICAL Temperature 12 ??C (53.6 ??F) 04/17/2021 12:40 PM MANAGER CLINICAL Respiratory Rate 15 04/17/2021 12:55 PM MANAGER CLINICAL Oxygen Saturation 99% 04/17/2021 12:55 PM MANAGER CLINICAL Inhaled Oxygen Concentration - - Weight 63.5 kg (140 lb) 04/17/2021 10:58 AM MANAGER CLINICAL Height 179.1 cm (5' 10.5 ) 04/17/2021 10:[address] Body Mass Index 19.8 04/17/2021 10:58 AM MANAGER CLINICAL documented in this encounter Medications at Time [...] 1 tablet (75 mcg total) by mouth bacteriologist industrial before breakfast 30 tablet 2 01/18/2020 mirtazapine [...] 1 tablet (75 mcg total) by mouth bacteriologist industrial before breakfast 30 tablet 2 ??? mirtazapine [...] dilation Procedure Planned: EUS Kwame Camarillo MD GER CLINICAL documented in this encounter Procedure Notes * Kwame Camarillo MD - 04/17/2021 11:48 AM CSTAssociated Order(s): EUS ENDOSCOPY LAB Patient Name: Saravanan Lanza Procedure Date: 04/17/2021 11:48 AM Admit Type: Outpatient Room: [facility] Date of : 1955 Instrument Name: [id number] Gender: Male Note Status: Tube Mounter Override Procedure: Upper EUS Indications: Common bile [...] 04/17/2021 11:48 AM Scope In: Scope Out: GER CLINICAL GER CLINICAL documented in this encounter Plan of Treatment Pending Results Name Type Priority Associated Diagnoses Date /Time US Endoscopy Endo Imaging Procedure IP Routine Other specified diseases of biliary tract 04/17/2021 12:21 PM MANAGER CLINICAL documented as of this encounter Procedures Procedure Name Priority Date/Time Associated Diagnosis Comments US ENDOSCOPIC IP Routine 04/17/2021 12:21 PM MANAGER CLINICAL Other specified diseases of biliary tract ESOPHAGOGASTRODUODENOSCOPY ULTRASOUND EXAM LIMITED 04/17/2021 12:03 PM MANAGER CLINICAL Other specified diseases of biliary tract EUS 04/17/2021 11:48 AM MANAGER CLINICAL documented in this encounter Results * EUS (04/17/2021 11:48 AM MANAGER CLINICAL) Anatomical Region Laterality Modality Other Narrative Procedure Note Kwame Camarillo MD - 04/17/2021 11:48 AM CST ENDOSCOPY LAB Patient Name: Saravanan Lanza Procedure Date: 04/17/2021 11:48AM Admit Type: Outpatient Room: [facility] Date of : 1955 Instrument Name: [id number] Gender: Male Note Status: Tube Mounter Override Procedure: Upper EUS Indications: Common bile [...] Thu04/17/21 at 1145 Restarted 04/17/2021 12:17 PM MANAGER CLINICAL Rate/Dose Verify 04/17/2021 11:58 AM MANAGER CLINICAL 30 mL/ hr New Bag 04/17/2021 11:12 AM MANAGER CLINICAL 30 mL/hr 30 mL/hr sodium chloride 0.9% [...] Recently Administered Medications Times are shown in MANAGER CLINICAL. Scheduled Medication Order 04/15/2021 04/16/2021 04/17/2021 sodium [...] 04/17/2021 documented in this encounter Care Teams Hemodialysis Patient Care Specialist Relationship Specialty Start Date End Date Mor Rodriguez MD PCP - General Family Practice 04/17/21 documented as of this encounter
--- OUTSIDE RECORDS SUMMARY | 2024-05-31 23:53 | XMS_ITS | Referral Summary ---
Author Organization [facility] Address [address] [place] [address] Care Team Providers Care Fisher Hoop Net Name Role Phone Mor Rodriguez MD Primary Care Provider [phone] [phone] Allergies Active Allergy Reactions Criticality Noted Date [...] tablet (75 mcg total) by mouth early childhood education specialist before breakfast 30 tablet 2 0 [...] on file Legal Sex Male 11:14 AM GARMENT INSPECTOR Gender Identity Not on file Sexual [...] Body Mass Index 19.8 04/17/2021 10:58 AM GARMENT INSPECTOR Plan of Treatment Not on file Procedures Procedure Name Priority Date/Time Associated Diagnosis Comments PSA DIAGNOSTIC Routine 05/22/2020 8:[address] ABDOMEN PELVIS WO CONTRAST Schedule Routine, Read Routine (OP Routine) 05/22/2020 7:51 AM GARMENT INSPECTOR Abnormal weight loss COLONOSCOPY 11/24/2017 9:42 AM CDT from Last 3 Months or Most Recently Relevant to Health Maintenance Results * PSA diagnostic (05/22/2020 8:59 AM GARMENT INSPECTOR) PSA-Total 0.50 <=5.40 ng/mL [facility] ([place]) Comment: Interpretive Data ?AGE ? SEX ?REFERENCE INTERVAL 0 minutes-150 years ?Female ?None 0 minutes-49 years ? Male ?None ? 50-59 years ? Male ?0-3.90 ? 60-69 years ? Male ?0-5.40 ? 70-79 years ? Male ?0-6.20 ? 80-150 years ?Male ?0-6.20 Current interpretive data last revised 2018. Testing performed by: [facility], [address] [place] [address], [place]., [address] Blood specimen (specimen) 05/22/2020 8:59 AM GARMENT INSPECTOR 05/22/2020 2:20 PM GARMENT INSPECTOR us Mitchell Gutierrez DO LAB BLOOD ORDERABLES Cecilia l Result [facility] ([place]) 1 [facility] Department [place] [address] * CT Abdomen Pelvis WO Contrast (05/22/2020 7:51 AM GARMENT INSPECTOR) Anatomical Region Laterality Modality Body N/A Computed Tomogra phy 05/22/2020 8:05 AM GARMENT INSPECTOR Impressions 05/22/2020 8:28 AM GARMENT INSPECTOR 1. ??Large, debris-filled hiatal hernia present. ??Scattered [...] Felix Galvez M.D. Narrative 05/22/2020 8:28 AM GARMENT INSPECTOR EXAMINATION: CT ABDOMEN PELVIS WO CONTRAST ORDERING [...] Alaniz MD - 11/24/2017 9:42 AM CDT [facility] Patient Name: Christal Lanza Procedure Date: 11/24/2017 9:42 AM Date of : 1955 Admit Type: Outpatient Age: 62 Gender: Male Attending MD: Dewayne Alaniz MD Room: [facility] ENDOSCOPY CAPSULE Note Status: Finalized Patient Profile: 62 WM with unexplained weight loss, and abnormal stool/diarrhea, no family h/o colon cancer. Procedure: Colonoscopy Indications: Last colonoscopy: November 2008, Clinically significant diarrhea of unexplained origin, Weight loss Referring MD: Geovanni Saunders, MEAL PACKER Providers: Dewayne Alaniz MD Impression: - The [...] passed under direct vision.The Pediatric Colonoscope [id number] was introduced through the anus and advanced [...] 9:42 AM Procedure Code(s): --- Professional --- 52298, Colonoscopy, flexible; with biopsy, single or multiple Diagnosis Code(s): --- Professional --- K64.8, Other hemorrhoids R63.4, Abnormal weight loss R19.7, Diarrhea, unspecified CPT copyright 2017 [employer]. All rights reserved. The codes documented in this report are preliminary and upon special agent group insurance reviewmay be revised to meet current compliance requirements. Recognized by the [employer] for promoting quality in endoscopy Dewayne Alaniz MD ENDOSCOPY PROCEDURES Final Result from Last 3 Months or Most Recently Relevant to Health Maintenance Insurance MEDICARE IDPA HUMANA CHOICE MEDICARE PPO AETNA MEDICARE GOLD IDPA AET MEDICARE [facility] IDPA AET MEDICARE GOLD Advance Directives For more information, please contact: [phone] * Full Code (Latest Code Status on File) Date Activated Date Inactivated Comments 04/17/2021 11:12 AM 04/17/2021 5:26 PM * Full Code Date Activated Date Inactivated Comments 01/09/2020 5:16 PM 01/17/2020 6:36 PM * Full Code Date Activated Date Inactivated Comments 11/24/2017 8:23 AM 11/24/2017 1:42 PM Care Teams Fisher Hoop Net Relationship Specialty Start Date End Date Mor Rodriguez MD PCP - General Family Practice 04/17/21
--- OUTSIDE RECORDS SUMMARY | 2024-05-31 23:53 | XMS_ITS | Encounter Summary ---
Author Organization [facility] Healthcare Address [address] [place] [address] Care Team Providers Care Manager Of Training Name Role Phone Manuel Browning DO Primary Care Provider [phone] [phone] Encounter Details Date Type Department Care Team (Late st Contact Info) Description 05/22/2020 9:00 AM SHUTDOWN COORDINATOR Lab [address] [address] Manuel Browning DO [address] [place] [address] Discharge Disposition: Discharge to home or self [...] on file Legal Sex Male 11:14 AM SHUTDOWN COORDINATOR Gender Identity Not on file Sexual Orientation Not on file documented as of this encounter Discharge Disposition Disposition Code Departure Means Destination Discharge to home or self care documented in this encounter Plan of Treatment Not on file documented as of this encounter Procedures Procedure Name Priority Date/Time Associated Diagnosis Comments URINALYSIS AND REFLEX TO MICROSCOPIC AND CULTURE Routine 05/22/2020 9:46 AM SHUTDOWN COORDINATOR URINALYSIS, MICROSCOPIC ONLY Routine 05/22/2020 9:46 AM SHUTDOWN COORDINATOR EGFR Routine 05/22/2020 8:59 AM SHUTDOWN COORDINATOR DIFFERENTIAL AUTO Routine 05/22/2020 8:5 9 AM SHUTDOWN COORDINATOR CBC WITH AUTO DIFFERENTIAL Routine 05/22/2020 8:59 AM SHUTDOWN COORDINATOR VITAMIN D 25 HYDROXY Routine 05/22/2020 8:59 AM SHUTDOWN COORDINATOR TSH Routine 05/22/2020 8:59 AM SHUTDOWN COORDINATOR PSA DIAGNOSTIC Routine 05/22/2020 8:59 AM SHUTDOWN COORDINATOR FOLATE Routine 05/22/2020 8:59 AM SHUTDOWN COORDINATOR VITAMIN B12 Routine 05/22/2020 8:59 AM SHUTDOWN COORDINATOR LIPID PANEL Routine 05/22/2020 8:59 AM SHUTDOWN COORDINATOR COMPREHENSIVE METABOLIC PANEL Routine 05/22/2020 8:59 AM SHUTDOWN COORDINATOR documented in this encounter Results * (ABNORMAL) Urinalysis, microscopic only (05/22/2020 9:46 AM SHUTDOWN COORDINATOR) WBC, ur 0-5 0 - 5 /HPF [facility] ([place]) RBC, ur 0-2 0 - 2 /HPF [facility] ([place]) Epithelial cells, squamous, ur 1-5 0 - 5 /HPF [facility] ([place]) Bacteria, ur Trace(A) [facility] ([place]) Mucous, ur Present(A) [facility] ([place]) Culture Reflex Comment Reflex conditions for urine culture (WBC >10) not met. [facility] ([place]) Urine 05/22/2020 9:46 AM SHUTDOWN COORDINATOR 05/22/2020 9:46 AM SHUTDOWN COORDINATOR Manuel Browning DO LAB URINE ORDERABLES Cecilia l Result [facility] ([place]) 1 [facility] Department [place] [address] * (ABNORMAL) Urinalysis reflex to microscopic and culture Urine (05/22/2020 9:46 AM SHUTDOWN COORDINATOR) Color, ur Yellow Yellow [facility] ([place]) [...] [facility] ([place]) Urine 05/22/2020 9:46 AM SHUTDOWN COORDINATOR 05/22/2020 9:46 AM SHUTDOWN COORDINATOR Narrative [facility] ([place]) - 05/22/2020 10:00 AM SHUTDOWN COORDINATOR ?? Urine pH is affected by diet, medications, systemic acid-base disturbances, and renal tubular function. ??pH may affect urinary stone formation. ??For example, urine pH below 6.0 may help reduce the tendency for calcium phosphate stones and pH greater than 6.0 may reduce the tendency for uric acid stone formation. Source: [employer] Last revised 06-04-2017 us Manuel Browning DO LAB MICROBIOLOGY - GENERA L ORDERABLES Final Result [facility] ([place]) 1 [facility] Department [place] [address] * eGFR (05/22/2020 8:59 AM SHUTDOWN COORDINATOR) eGFR 75 mL/min/1.7 3 m2 [facility] ([place]) Comment: Interpretive Data Reference Interval Normal ?>/= 90 mL/min/1.73m2 Mildly decreased* ? 60 - 89 mL/min/1.73m2 Mildly to moderately decreased ?45 - 59 mL/min/1.73m2 Moderately to severely decreased ??30 - 44 mL/min/1.73m2 Severely decreased ?15 - 29 mL/min/1.73m2 Kidney Failure ?< 15 ??mL/min/1.73m2 *Relative to young adult level If -[place] multiply value by 1.16. Estimated glomerular filtration [...] 2015. Blood specimen (specimen) 05/22/2020 8:59 AM SHUTDOWN COORDINATOR 05/22/2020 9:36 AM SHUTDOWN COORDINATOR us Manuel Browning DO LAB BLOOD ORDERABLES Cecilia shady Result [facility] ([place]) 1 [facility] Department [place] [address] * Differential, auto (05/22/2020 8:59 AM SHUTDOWN COORDINATOR) Neutrophil abs 4.9 1.7 - 6.5 K/cumm [...] 2017. Blood specimen (specimen) 05/22/2020 8:59 AM SHUTDOWN COORDINATOR 05/22/2020 9:36 AM SHUTDOWN COORDINATOR Manuel Browning DO LAB BLOOD ORDERABLES Cecilia l Result [facility]OLAN[facility] ([place]) 1 [facility] Department [place] [address] * Folate (05/22/2020 8:59 AM SHUTDOWN COORDINATOR) Pathologist [facility] Folic acid 11.1 >=5.0 ng/mL [facility] ([place]) Comment: Hemolysis present. ??Results may be affected. Testing performed by: [facility], [address] [place] [address]., [address] Blood specimen (specimen) 05/22/2020 8:59 AM SHUTDOWN COORDINATOR 05/22/2020 2:20 PM SHUTDOWN COORDINATOR Manuel Browning DO LAB BLOOD ORDERABLES Cecilia l Result Performing Organization Address City/[facility] Co de Phone Number [facility] ([place]) 1 [facility] [place] [address] * Vitamin B12 (05/22/2020 8:59 AM SHUTDOWN COORDINATOR) [facility] Vitamin B12 663 230 - 1,250 pg/mL [facility] ([place]) Comment:Testing performed by : [facility], [address] [place] [address]., [address] Blood specimen (specimen) 05/22/2020 8:59 AM SHUTDOWN COORDINATOR 05/22/2020 2:20 PM SHUTDOWN COORDINATOR Manuel Browning DO LAB BLOOD ORDERABLES Cecilia l Result Performing Organization Address [facility] de Phone Number [facility] ([place]) 1 [facility] [place] [address] * (ABNORMAL) Lipid panel (05/22/2020 8:59 AM SHUTDOWN COORDINATOR) [facility] Cholesterol 155 30 - 199 mg/dL [facility] ([place]) Comment: Interpretive Data Ages < [...] on 2018. LDL, calculated 94 <=129 mg/dL [facility] ([place]) Comment: Interpretive Data Ages < [...] ([place]) Blood specimen (specimen) 05/22/2020 8:59 AM SHUTDOWN COORDINATOR 05/22/2020 9:36 AM SHUTDOWN COORDINATOR us Manuel Browning DO LAB BLOOD ORDERABLES Cecilia caruso Result [facility] ([place]) 1 [facility] Department [place] [address] * TSH (05/22/2020 8:59 AM SHUTDOWN COORDINATOR) Thyroid Stimulating Hormone 2.89 0.30 - 4.20 mcIUnit/mL [facility] ([place]) Blood specimen (specimen) 05/22/2020 8:59 AM SHUTDOWN COORDINATOR 05/22/2020 9:36 AM SHUTDOWN COORDINATOR Manuel Browning DO LAB BLOOD ORDERABLES Cecilia l Result [facility] ([place]) 1 [facility] Department [place] [address] * (ABNORMAL) Comprehensive metabolic panel (05/22/2020 8:59 AM SHUTDOWN COORDINATOR) Sodium 137 135 - 145 mmol/L [facility] [...] ([place]) Blood specimen (specimen) 05/22/2020 8:59 AM SHUTDOWN COORDINATOR 05/22/2020 9:36 AM SHUTDOWN COORDINATOR us Manuel Browning DO LAB BLOOD ORDERABLES Cecilia l Result [facility] ([place]) 1 [facility] Department [place] [address] * (ABNORMAL) CBC with auto differential (05/22/2020 8:59 AM SHUTDOWN COORDINATOR) WBC 7.5 3.8 - 9.9 K/cumm [facility] [...] ([place]) Blood specimen (specimen) 05/22/2020 8:59 AM SHUTDOWN COORDINATOR 05/22/2020 9:36 AM SHUTDOWN COORDINATOR Manuel Browning DO LAB BLOOD ORDERABLES Cecilia l Result Performing Organization Address City/[facility]/ZIP Co de Phone Number [facility] ([place]) 1 [facility] [place] [address] * Vitamin D 25 hydroxy (05/22/2020 8:59 AM SHUTDOWN COORDINATOR) Pathologist [facility] Vitamin D 25-OH 30 30 - 80 ng/mL [facility] ([place]) Blood specimen (specimen) 05/22/2020 8:59 AM SHUTDOWN COORDINATOR 05/22/2020 9:36 AM SHUTDOWN COORDINATOR Manuel Browning DO LAB BLOOD ORDERABLES Cecilia l Result Performing Organization Address [facility] de Phone Number [facility] ([place]) 1 [facility] [place] [address] * PSA diagnostic (05/22/2020 8:59 AM SHUTDOWN COORDINATOR) PSA-Total 0.50 <=5.40 ng/mL [facility] ([place]) Comment: Interpretive Data ?AGE ? SEX ?REFERENCE INTERVAL 0 minutes-150 years ?Female ?None 0 minutes-49 years ? Male ?None ? 50-59 years ? Male ?0-3.90 ? 60-69 years ? Male ?0-5.40 ? 70-79 years ? Male ?0-6.20 ? 80-150 years ?Male ?0-6.20 Current interpretive data last revised 2018. Testing performed by: [facility], [address] [place] [address], [place]., [address] Blood specimen (specimen) 05/22/2020 8:59 AM SHUTDOWN COORDINATOR 05/22/2020 2:20 PM SHUTDOWN COORDINATOR us Manuel Browning DO LAB BLOOD ORDERABLES Cecilia l Result Performing Organization Address City/State/[facility] Co de Phone Number [facility] ([place]) 1 [facility] Department [place] [address] documented in this encounter Visit Diagnoses Not on filedocumented in this encounter Care Teams Manager Of Training Relationship Specialty Start Date End Date Manuel Browning DO PCP - General 05/14/20 04/16/21 documented as of this encounter
--- OUTSIDE RECORDS SUMMARY | 2024-05-31 23:53 | XMS_ITS | Encounter Summary ---
Author Organization [facility] [employer] [facility] Address [address] [place] [phone] Phone Care Team Providers Care Register Of Wills Name Role Phone Manuel Browning DO Primary Care Provider [phone]- [phone] Encounter Details Date Type Department Care Team (Late st Contact Info) Description 11/22/2020 Documentation Only [facility] [employer] [facility] [address] [address] Kimberly Kaplan [facility] [address] [facility] [address] [place] [address] Social History Tobacco Use Types [...] on filedocumented in this encounter Care Teams Register Of Wills Relationship Specialty Start Date End Date Manuel Browning DO [address] [place] [address] PCP - General Family Medicine 11/20/20 documented as of this encounter
--- OUTSIDE RECORDS SUMMARY | 2024-05-31 23:54 | XMS_ITS | Encounter Summary ---
Author Organization [facility] Address [address] [facility] [address] [place] [address] Care Team Providers Care Software Controls Engineer Name Role Phone Geovanni Saunders NP Primary Care Provider + Reason for Visit * Reason Comments Pain Encounter Details Date Type Department Care Team (Late st Contact Info) Description 06/16/2017 1:00 PM LAW TUTOR Office Visit [facility] Orthopedics and Sports Medicine [address] [facility] [address] [place] [id number] Patricio Grimm MD [address] [facility] [facility] [address] [place] [address] Closed fracture of right inferior pubic ramus, initial encounter ([facility]) (Primary Dx); Closed fracture of right superior pubic ramus, initial encounter ([facility]) Social History Tobacco Use Types Packs/Day Years Used Date Smoking Tobacco: Every Day Smokeless Tobacco: Never Alcohol Use Standard Drinks/Week Comments Yes 0 (1 standard drink = 0.6 oz pur e alcohol) Sex and Gender Information Value Date Recorded Sex Assigned at Not on file Legal Sex Male 11:14 AM LAW TUTOR Gender Identity Not on file Sexual Orientation Not on file documented as of this encounter Last Filed Vital Signs Vital Sign Reading Time Taken Comments Blood Pressure 128/87 06/16/2017 2:04 PM LAW TUTOR Pulse 80 06/16/2017 2:04 PM LAW TUTOR Temperature - - Respiratory Rate - - Oxygen Saturation - - Inhaled Oxygen Concentration - - Weight 73.9 kg (163 lb) 06/16/2017 2:04 PM LAW TUTOR Height 177.8 cm (5' 10 ) 06/16/2017 2:04 PM LAW TUTOR Body Mass Index 23.39 06/16/2017 2:04 PM LAW TUTOR documented in this encounter Progress Notes * [...] his discomfort. His PCP prescribed him with [place] 5/325mg, which he primarily takes at night [...] of right inferior pubic ramus, initial encounter ([facility]) Closed fracture of right superior pubic ramus, initial encounter ([facility]) Plan This is a stable lateral compression type 2 injury and the patient may weightbear as tolerated withassistance. He may his advance his activity as tolerated over time. We will see him back in 6-8 weeks for a final visit with repeat x-rays. Patricio Grimm MD TUTOR documented in this encounter Plan of Treatment Not on file documented as of this encounter Visit Diagnoses Diagnosis Closed fracture of right inferior pubic ramus, initial encounter ([facility])- Primary Closed fracture of right superior pubic [...] 01/10/2020 added in this encounter Care Teams Software Controls Engineer Relationship Specialty Start Date End Date Geovanni Saunders NP [address] [place] [address] [address] [place] [address] PCP - General 01/02/17 04/28/18 documented as of this encounter
--- OUTSIDE RECORDS SUMMARY | 2024-05-31 23:54 | XMS_ITS | Encounter Summary ---
Author Organization [facility] Healthcare Address [address] [place] [address] Care Team Providers Care Mortarman Name Role Phone Geovanni Saunders UPSET OPERATOR Primary Care Provider + Encounter Details Date Type Department Care Team (Late st Contact Info) Description 03/05/2017 3:22 PM CDT - 03/05/2017 11:59 PM CDT Hospital Encounter [facility] OP INTERIM [phone] Lopez Wang MD [address] [facility] [address] [place] [address] Discharge Disposition: Discharge to home or self care Social History Tobacco Use Types Packs/Day Years Used Date Smoking Tobacco: Never Assessed Sex and Gender Information Value Date Recorded Sex Assigned at Not on file Legal Sex Male 11:14 AM LOAD BLOCKER Gender Identity Not on file Sexual Orientation [...] growth based on current clinical standards. [facility] Urine, clean voided 03/05/2017 6:12 PM CDT 03/05/2017 7:14 PM CDT Narrative [facility] - 03/06/2017 12:36 PM CDT Received in transport media. Vita Lynn NP LAB MI[facility] - [facility] ORDERABLES Final Result [facility] Department [place] [address] * (ABNORMAL) Basic metabolic panel (03/05/2017 6:12 PM CDT) Sodium 140 135 - 145 mmol/L [facility] Potassium, pl 4.6 3.3 - 4.9 mmol/L [facility] Chloride 103 97 - 110 mmol/L [facility] CO2 30 22 - 32 mmol/L [facility] BUN 14 8 - 25 mg/dL [facility] Glucose 68(L) 70 - 199 mg/dL [facility] Creatinine 1.06 0.80 - 1.30 mg/dL [facility] Calcium 9.0 8.5 - 10.3 mg/dL [facility] Anion gap 8 2 - 15 mmol/L [facility] Blood specimen (specimen) 03/05/2017 6:12 PM CDT 03/05/2017 7:13 PM CDT us Vita Lynn NP LAB BLOOD ORDERABLES Fi nal Result [facility] Department [place] [address] * DISCHARGE LABORATORY CUMULATIVE REPORT (03/05/2017 12:00 AM CDT) Narrative 03/05/2017 12:00 AM CDT Ordered by an unspecified provider. us Historical Provider LAB BLOOD ORDERABLES Cecilia l Result * ELECTROCARDIOGRAPHY (ECG) (03/05/2017) us Provider Scanning ECG ORDERABLES Final Result documented in this encounter Visit Diagnoses Not on filedocumented in this encounter Care Teams Mortarman Relationship Specialty Start Date End Date Geovanni Saunders NP [address] [place] [address] PCP - General 01/02/17 04/28/18 documented as of this encounter
--- OUTSIDE RECORDS SUMMARY | 2024-05-31 23:54 | XMS_ITS | Encounter Summary ---
Author Organization [facility] Healthcare Address [address] [place] [address] Care Team Providers Care Diamond Saw Operator Name Role Phone Unavailable Primary Care Provider Unavailabl e Encounter Details Date Type Department Care Team (Late st Contact Info) Description 01/08/2013 10:23 AM CDT - 01/08/2013 11:59 PM CDT Hospital Encounter [facility] Joe Melton MD [address] [place] [address] Shortness of breath Social History Tobacco Use Types Packs/Day Years Used Date Smoking Tobacco: Never Assessed Sex and Gender Information Value Date Recorded Sex Assigned at Not on file Legal Sex Male 11:14 AM WEB DESIGNER DEVELOPER Gender Identity Not on file Sexual [...] 9:51 PM CDT XR Chest 2 Views ?[id number] ??Acc#: ??[id number] DATE OF EXAM: ??Jan 08 2013 CLINICAL [...] Edmund, - 09/17/2016 XR Chest 2 Views [id number] Acc#: [id number] DATE OF EXAM: Jan 08 2013 CLINICAL [...]
--- OUTSIDE RECORDS SUMMARY | 2024-05-31 23:54 | XMS_ITS | Encounter Summary ---
Author Organization [facility] Healthcare Address [address] [place] [address] Care Team Providers Care Human Resources Support Specialist Name Role Phone Miscellaneous, Not In File Primary Care Provider Unavailable Reason for Visit * Reason Comments Finger Laceration Encounter Details Date Type Department Care Team (Late st Contact Info) Description 06/04/2019 3:47 PM MARINE EQUIPMENT DESIGN ENGINEER - 06/04/2019 4:42 PM MARINE EQUIPMENT DESIGN ENGINEER Emergency [facility] Emergency Department [address] [place] [address] Avulsion of skin of right thumb without [...] on file Legal Sex Male 11:14 AM MARINE EQUIPMENT DESIGN ENGINEER Gender Identity Not on file Sexual Orientation Not on file documented as of this encounter Last Filed Vital Signs Vital Sign Reading Time Taken Comments Blood Pressure 122/81 06/04/2019 3:44 PM MARINE EQUIPMENT DESIGN ENGINEER Pulse 70 06/04/2019 3:44 PM MARINE EQUIPMENT DESIGN ENGINEER Temperature 36.7 ??C (98 ??F) 06/04/2019 3:44 PM MARINE EQUIPMENT DESIGN ENGINEER Respiratory Rate 18 06/04/2019 3:44 PM MARINE EQUIPMENT DESIGN ENGINEER Oxygen Saturation 94% 06/04/2019 3:44 PM MARINE EQUIPMENT DESIGN ENGINEER Inhaled Oxygen Concentration - - Weight 68 kg (150 lb) 06/04/2019 3:44 PM MARINE EQUIPMENT DESIGN ENGINEER Height 172.7 cm (5' 8 ) 06/04/2019 3:44 PM MARINE EQUIPMENT DESIGN ENGINEER Body Mass Index 22.81 06/04/2019 3:44 PM MARINE EQUIPMENT DESIGN ENGINEER documented in this encounter Discharge Diagnoses Diagnosis [...] Yinka Rosales PA - 06/04/2019 4:35 PM MARINE EQUIPMENT DESIGN ENGINEER You received a tetanus booster today which contains tetanus, diphtheria, and pertussis. It is good for 10 years. NE EQUIPMENT DESIGN ENGINEER NE EQUIPMENT DESIGN ENGINEER * Attachments The following attachments cannot be sent through Care Everywhere. * Skin Avulsion (AfterCare(R) Instructions(ER/ED)) (Ukrainian) documented in this encounter Medications at Time [...] mcg tablet Take 88 mcg by mouth college professor before breakfast 04/12/2018 0 methadone (DOLOPHINE) 10 [...] Closed fracture of right inferior pubic ramus ([facility]) 06/16/2017 ??? Closed fracture of right superior pubic ramus ([facility]) 06/16/2017 ??? Unspecified urinary incontinence 04/14/2017 Class: Chronic ??? Calculus of urinary bladder 01/27/2017 Class: Chronic Past Medical History: Diagnosis Date ??? Depression ??? Emphysema of lung ([facility]) ??? Infectious viral hepatitis ??? Kidney stone [...] Manuel Feliz MD at 06/04/2019 4:38 PM MARINE EQUIPMENT DESIGN ENGINEER NE EQUIPMENT DESIGN ENGINEER NE EQUIPMENT DESIGN ENGINEER Associated attestation - Manuel Feliz MD - 06/04/2019 4:38 PM MARINE EQUIPMENT DESIGN ENGINEER ED Attestation Based on the medical record the care appears appropriate. * Tamera Peoples RN - 06/04/2019 3:42 PM CST Laceration to his right thumb 48 hours ago on a table saw NE EQUIPMENT DESIGN ENGINEER documented in this encounter Miscellaneous Notes * ED Procedure Note - Yinka Rosales PA - 06/04/2019 4:31 PM CST Procedure Procedures Wound care: Cleansed with Restore Dermal Wound Cleanser and hydrogen peroxide solution. Dried with sterile 4x4s. Applied Surgicel, Telfa, Marla, and Coban dressing. Patient tolerated well. Aseptic technique utilized throughout procedure. KYAW Castellano 06/04/19 1632 NE EQUIPMENT DESIGN ENGINEER documented in this encounter Plan of Treatment Not on file documented as of this encounter Procedures Procedure Name Priority Date/Time Associated Diagnosis Comments XR FINGER THUMB RIGHT ED 06/04/2019 4:06 PM MARINE EQUIPMENT DESIGN ENGINEER documented in this encounter Results * XR Finger Thumb Right Minimum 2 Views (06/04/2019 4:06 PM MARINE EQUIPMENT DESIGN ENGINEER) Anatomical Region Laterality Modality Upper Extremities, Hand, Fingers Right Computed Radiography 06/04/2019 4:00 PM MARINE EQUIPMENT DESIGN ENGINEER Narrative 06/04/2019 4:26 PM MARINE EQUIPMENT DESIGN ENGINEER PROCEDURE INFORMATION: Exam: XR Right Finger(s) Exam [...] (Td) documented in this encounter Care Teams Human Resources Support Specialist Relationship Specialty Start Date End Date Miscellaneous, Not In File PCP - General 04/29/1805/13 documented as of this encounter
--- OUTSIDE RECORDS SUMMARY | 2024-05-31 23:54 | XMS_ITS | Encounter Summary ---
Author Organization [facility] Address [address] [facility] [facility] [address] [place] [address] Care Team Providers Care First Assistant Name Role Phone Geovanni Saunders NP Primary Care Provider + Encounter Details Date Type Department Care Team (Latest Contact Info) Description 07/21/2017 10:40 AM PHP WEB DEVELOPER - 07/21/2017 11:59 PM PHP WEB DEVELOPER Hospital Encounter [facility] Orthopedics and Sports Medicine [address] [facility] [address], [place] [phone] Discharge Disposition: Discharge to home or self care Social History Tobacco Use Types Packs/Day Years Used Date Smoking Tobacco: Former Smokeless Tobacco: Never Alcohol Use Standard Drinks/Week Comments Yes 0 (1 standard drink = 0.6 oz pur e alcohol) Sex and Gender Information Value Date Recorded Sex Assigned at Not on file Legal Sex Male 11:14 AM PHP WEB DEVELOPER Gender Identity Not on file Sexual [...] Read Routine (OP Routine) 07/21/2017 11:10 AM PHP WEB DEVELOPER Orthopedic aftercare documented in this encounter Results * XR Pelvis 1 or 2 Views (07/21/2017 11:10 AM PHP WEB DEVELOPER) Anatomical Region Laterality Modality Body, Pelvis N/A Digital Radiogra phy Narrative 07/22/2017 5:05 PM PHP WEB DEVELOPER No further displacement of rami fractures noted. Some callus formation noted. Patricio Grimm MD IMG XR PROCEDURES Final Result documented in this encounter Visit Diagnoses Not on filedocumented in this encounter Care Teams First Assistant Relationship Specialty Start Date End Date Geovanni Saunders NP [address] [place] [address] [address] [place] [address] PCP - General 01/02/17 04/28/18 documented as of this encounter
--- OUTSIDE RECORDS SUMMARY | 2024-05-31 23:54 | XMS_ITS | Encounter Summary ---
Author Organization [facility] Healthcare Address [address] [place] [address] Care Team Providers Care Airport Electrician Name Role Phone Geovanni Saunders DIRECTOR COMMUNITY ORGANIZATION Primary Care Provider + Reason for Referral * Diagnostic Imaging (Routine) - Closed Specialty Diagnoses / Procedures Referred By Ellis smiley Referred To Contact Diagnoses Chronic viral hepatitis C (CMS/HCC) (HCC) Procedures US Elastography Patricio Hernadez PA Phone: tel: fax: [address] [phone] Referral ID Status Reason Start Date Expiration Date Visits Re quested Visits Authorized [id number] Closed 12/22/2017 07/03/2019 1 1 Reason for Visit * Diagnostic Imaging (Routine) - Closed Specialty Diagnoses / Procedures Referred By Ellis smiley Referred To Contact Diagnoses Chronic viral hepatitis C (CMS/HCC) (HCC) Procedures US Elastography Patricio Hernadez PA Phone: tel: fax: [address] [phone] Referral ID Status Reason Start Date Expiration Date Visits Re quested Visits Authorized [id number] Closed 12/22/2017 07/03/2019 1 1 Encounter Details Date Type Department Care Team (Latest Contact Info) Description 01/05/2018 1:03 PM CDT - 01/05/2018 11:59 PM CDT Hospital Encounter [facility] [address] [place] [address] Patricio Hernadez PA [address] [place] [address] Chronic viral hepatitis C (CMS/HCC) Discharge Disposition: Discharge to home or self care Social History Tobacco Use Types Packs/Day Years Used Date Smoking Tobacco: Former Smokeless Tobacco: Never Alcohol Use Standard Drinks/Week Comments Yes 0 (1 standard drink = 0.6 oz pur e alcohol) Sex and Gender Information Value Date Recorded Sex Assigned at Not on file Legal Sex Male 11:14 AM ABALONE SHELLER Gender Identity Not on file Sexual Orientation [...] Shear wave elastography was performed using a Duxter E9 Unit and a curved 1-6 MHz [...] wave elastography was performed using a General [email or web address] Logiq E9 Unit and a curved 1-6 [...] coma documented in this encounter Care Teams Airport Electrician Relationship Specialty Start Date End Date Geovanni Saunders NP [address] [facility] [address] [place] [address] PCP - General 01/02/17 04/28/18 documented as of this encounter
--- OUTSIDE RECORDS SUMMARY | 2024-05-31 23:54 | XMS_ITS | Encounter Summary ---
Author Organization [facility] Healthcare Address [address] [place] [address] Care Team Providers Care Banana Loader Name Role Phone Geovanni Saunders UI UX ENGINEER Primary Care Provider + Encounter Details Date Type Department Care Team (Latest Contact Info) Description 06/12/2017 12:25 PM MORTAR WORKER - 06/12/2017 11:59 PM MORTAR WORKER Hospital Encounter [facility] [address] [place] [address] Geovanni Saunders, JUANJOSE [address] [place] [id number] Fall from ladder, initial encounter Discharge Disposition: Discharge to home or self care Social History Tobacco Use Types Packs/Day Years Used Date Smoking Tobacco: Never Assessed Sex and Gender Information Value Date Recorded Sex Assigned at Not on file Legal Sex Male 11:14 AM MORTAR WORKER Gender Identity Not on file Sexual [...] Read Routine (OP Routine) 06/12/2017 12:56 PM MORTAR WORKER Fall from ladder, initial encounter XR FEMUR RIGHT 2 OR MORE VIEWS Schedule Routine, Read Routine (OP Routine) 06/12/2017 12:56 PM MORTAR WORKER Fall from ladder, initial encounter documented in this encounter Results * XR Femur Right 2 or More Views (06/12/2017 12:56 PM MORTAR WORKER) Anatomical Region Laterality Modality Lower Extremities, Thigh, Femur Right Computed Radiography Impressions 06/12/2017 2:07 PM MORTAR WORKER 1. ??Right superior and inferior pubic ramus fractures. 2. ??Moderate right hip degenerative change. 3. ??Minimal right knee degenerative change. 4. ??Extensive arteriosclerosis. Results called to Geovanni Saunders NP, by RT Sara, on 06/12/2017 at 1357 hours. Critical result message with acuity significant has been communicated to ordering provider via the ROKT Critical Result tracking system. Status of follow up communication is complete. Electronically signed by: Negrito Pizarro Jr., M.D. CRITICAL RESULT ACUITY^SIGNIFICANT CRITICALITY STATUS^CLOSED Narrative 06/12/2017 2:07 PM MORTAR WORKER XR HIP RIGHT 2 OR 3 VIEWS [...] been communicated to ordering provider via the ROKT Critical Result tracking system. Status of follow up communication is complete. Electronically signed by: Negrito Pizarro Jr., M.D. CRITICAL RESULT ACUITY^SIGNIFICANT CRITICALITY STATUS^CLOSED Geovanni Saunders UI UX ENGINEER IMG XR PROCEDURES Final Result * XR Hip Right 2 or 3 Views W Pelvis (06/12/2017 12:56 PM MORTAR WORKER) Anatomical Region Laterality Modality Lower Extremities, Hip, Pelvis Right C omputed Radiography Impressions 06/12/2017 2:07 PM MORTAR WORKER 1. ??Right superior and inferior pubic ramus fractures. 2. ??Moderate right hip degenerative change. 3. ??Minimal right knee degenerative change. 4. ??Extensive arteriosclerosis. Results called to Geovanni Saunders NP, by Serena Reynaga RT, on 06/12/2017 at 1357 hours. Critical result message with acuity significant has been communicated to ordering provider via the ROKT Critical Result tracking system. Status of follow up communication is complete. Electronically signed by: Negrito Pizarro Jr., M.D. CRITICAL RESULT ACUITY^SIGNIFICANT CRITICALITY STATUS^CLOSED Narrative 06/12/2017 2:07 PM MORTAR WORKER XR HIP RIGHT 2 OR 3 VIEWS [...] been communicated to ordering provider via the ROKT Critical Result tracking system. Status of follow up communication is complete. Electronically signed by: Negrito Pizarro Jr., M.D. CRITICAL RESULT ACUITY^SIGNIFICANT CRITICALITY STATUS^CLOSED Geovanni Saunders NP IMG XR PROCEDURES Final Result documented in this encounter Visit Diagnoses Diagnosis Fall from ladder, initial encounter documented in this encounter Care Teams Banana Loader Relationship Specialty Start Date End Date Geovanni Saunders NP [address] [place] [address] [address] [place] [address] PCP - General 01/02/17 04/28/18 documented as of this encounter
--- OUTSIDE RECORDS SUMMARY | 2024-05-31 23:54 | XMS_ITS | Encounter Summary ---
Author Organization [facility] Healthcare Address [address] [place] [address] Care Team Providers Care Men'S Locker Room Attendant Name Role Phone Geovanni Saunders DIRECTOR OF TECHNOLOGY Primary Care Provider + Reason for Referral * (Routine) - Closed Specialty Diagnoses / Procedures Referred By Contac t Referred To Contact Diagnoses Cardiac arrhythmia, unspecified cardiac arrhythmia type Procedures 48 HR Holter Monitor Robin Hernadez PA Phone: tel: fax: [address] [phone] Referral ID Status Reason Start Date Expiration Date Visits Re quested Visits Authorized [id number] Closed 12/02/2017 06/13/2019 1 1 Reason for Visit * (Routine) - Closed Specialty Diagnoses / Procedures Referred By Contac t Referred To Contact Diagnoses Cardiac arrhythmia, unspecified cardiac arrhythmia type Procedures 48 HR Holter Monitor Robin Hernadez PA Phone: tel: fax: [address] [phone] Referral ID Status Reason Start Date Expiration Date Visits Re quested Visits Authorized [id number] Closed 12/02/2017 06/13/2019 1 1 Encounter Details Date Type Department Care Team (Latest Contact Info) Description 12/07/2017 7:54 AM CDT - 12/07/2017 11:59 PM CDT Hospital Encounter [facility] Cardiology [address] [place] [address] Robin Hernadez PA [address] [place] [address] Nikos Drake MD [address] [place] [address] Cardiac arrhythmia, unspecified cardiac arrhythmia type Discharge Disposition: Discharge to home or self care Social History Tobacco Use Types Packs/Day Years Used Date Smoking Tobacco: Former Smokeless Tobacco: Never Alcohol Use Standard Drinks/Week Comments Yes 0 (1 standard drink = 0.6 oz pur e alcohol) Sex and Gender Information Value Date Recorded Sex Assigned at Not on file Legal Sex Male 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 Recorder: H3+. Total QRS: [id number]. Date Recorded: 2017-12-07 08:18:42. Date Processed: 2017-12-07 00:00:00. Shellfish Processing Machine Tender:. Application Tech: . Conclusions: 1. Predominant rhythm is normal sinus rhythm. 2. Heart rate and rate variability is appropriate. 3. No prolonged pauses. 4. Two asymptomatic PAT episodes lasting 3 beats and 8 beats. 5. Patient's symptom was not associated with anything significant. Electronically Signed By: Dr Leo Jackson 2017-12-09 13:42:22 CDT CC: CC: Procedure Note Leo Jackson MD - 12/15/[address] [address] HOLTER MONITOR Patient Name: CHRISTAL LANZA LEEPatient ID: [id number] : [id number] Date: 12/07/2017 08:18:42 Gender: MAccession #: [id number] Tech: Location: Ref.Physician: ROBIN HERNADEZHeight(Cm): BSA: Weight(Kg): [...] hr, 22 min. Recorder: H3+. Total QRS: [id number]. Date Recorded: 2017-12-07 08:18:42. Date Processed: 2017-12-07 00:00:00. Shellfish Processing Machine Tender:. Application Tech: . Conclusions: 1. Predominant rhythm [...] type documented in this encounter Care Teams Men'S Locker Room Attendant Relationship Specialty Start Date End Date Geovanni Saunders NP [address] [facility] [address], [place] [address] PCP - General 01/02/17 04/28/18 documented as of this encounter
--- OUTSIDE RECORDS SUMMARY | 2024-05-31 23:54 | XMS_ITS | Encounter Summary ---
Author Organization [facility] Healthcare Address [address] [place] [address] Care Team Providers Care Data Warehousing Manager Name Role Phone Miscellaneous, Not In File Primary Care Provider Unavailable Reason for Referral * Diagnostic Imaging (Routine) - Closed Specialty Diagnoses / Procedures Referred By Contac t Referred To Contact Diagnoses Chronic hepatitis C without hepatic coma (CMS/HCC) (HCC) Procedures Liver Pham Herrera MD [facility] [id number] Phone: tel: fax: [address] [phone] Referral ID Status Reason Start Date Expiration Date Visits Re quested Visits Authorized [id number] Closed 11/16/2019 05/27/2021 1 1 Reason for Visit * Diagnostic Imaging (Routine) - Closed Specialty Diagnoses / Procedures Referred By Contac t Referred To Contact Diagnoses Chronic hepatitis C without hepatic coma (CMS/HCC) (HCC) Procedures Liver Pham Herrera MD [address] [facility] [place] [address] Phone: tel: fax: [address] [phone] Referral ID Status Reason Start Date Expiration Date Visits Re quested Visits Authorized [id number] Closed 11/16/2019 05/27/2021 1 1 Encounter Details Date Type Department Care Team (Late st Contact Info) Description 12/22/2019 9:21 AM CDT - 12/22/2019 11:59 PM CDT Hospital Encounter [facility] Imaging Center [address] [place] [address] Pham Herrera MD [address] [facility] [place] [address] Chronic hepatitis C without hepatic coma (CMS/HCC) [...] on file Legal Sex Male 11:14 AM LABOR SUPERVISOR Gender Identity Not on file Sexual [...] mcg tablet Take 88 mcg by mouth dopeman before breakfast 04/12/2018 0 methadone (DOLOPHINE) 10 [...] (HCC) documented in this encounter Care Teams Data Warehousing Manager Relationship Specialty Start Date End Date Miscellaneous, Not In File PCP - General 04/29/1805/13 documented as of this encounter
--- OUTSIDE RECORDS SUMMARY | 2024-05-31 23:54 | XMS_ITS | Encounter Summary ---
Author Organization [facility] Address [address] [facility] [address] [place] [address] Care Team Providers Care Children'S Entertainer Name Role Phone Geovanni Saunders NP Primary Care Provider + Encounter Details Date Type Department Care Team (Latest Contact Info) Description 08/12/2017 8:10 AM CDT - 08/12/2017 11:59 PM CDT Hospital Encounter [facility] Orthopedics and Sports Medicine [address] [place] [address] [address] [place] [phone] Discharge Disposition: Discharge to home or self care Social History Tobacco Use Types Packs/Day Years Used Date Smoking Tobacco: Former Smokeless Tobacco: Never Alcohol Use Standard Drinks/Week Comments Yes 0 (1 standard drink = 0.6 oz pur e alcohol) Sex and Gender Information Value Date Recorded Sex Assigned at Not on file Legal Sex Male 11:14 AM 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
--- OUTSIDE RECORDS SUMMARY | 2024-05-31 23:54 | XMS_ITS | Encounter Summary ---
Author Organization [facility] Healthcare Address [address] [place] [address] Care Team Providers Care Pulper Operator Name Role Phone Geovanni Saunders TELEGRAPH INSTALLER Primary Care Provider + Encounter Details Date Type Department Care Team (Latest Contact Info) Description 10/08/2017 10:54 AM CDT - 10/08/2017 11:59 PM CDT Hospital Encounter [facility] [address] [place] [address] Geovanni Saunders, JUANJOSE [address] [place] [phone] Krishna Rios MD [address] [place] [phone] Loss of weight Discharge Disposition: Discharge to home or self care Social History Tobacco Use Types Packs/Day Years Used Date Smoking Tobacco: Former Smokeless Tobacco: Never Alcohol Use Standard Drinks/Week Comments Yes 0 (1 standard drink = 0.6 oz pur e alcohol) Sex and Gender Information Value Date Recorded Sex Assigned at Not on file Legal Sex Male 11:14 AM ROOFING 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
--- OUTSIDE RECORDS SUMMARY | 2024-05-31 23:54 | XMS_ITS | Encounter Summary ---
Author Organization [facility] Healthcare Address [address] [place] [address] Care Team Providers Care Cranberry Sorter Name Role Phone Chip Geovanni Felix WEAVING INSPECTOR Primary Care Provider + Encounter Details Date Type Department Care Team (Late st Contact Info) Description 03/09/2017 8:11 AM CDT - 03/09/2017 2:25 PM CDT Hospital Encounter [facility] OP INTERIM [phone] Lopez Wang MD [address] [facility] [address] [place] [address] Discharge Disposition: Discharge to home or self care Social History Tobacco Use Types Packs/Day Years Used Date Smoking Tobacco: Never Assessed Sex and Gender Information Value Date Recorded Sex Assigned at Not on file Legal Sex Male 11:14 AM 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 Surgeon: Lopez Wang M.D. Dictating: Lopez Wang M.D. Service Dt: 03/09/2017 OPERATIVE REPORT FACILITY ID: [facility] SURGEON Lopez Wang MD [employer] SPOTTER Nighat Cortez MD PREOPERATIVE DIAGNOSES Benign prostatic [...] Matt Wang MD On 03/30/2017 11:41 AM SENIOR INTERACTION DESIGNER Lopez Wang M.D. L:[facility] #[id number] Editing MT: TD: 03/18/2017 01:49 PM cc: [...] PM CDT Narrative 03/24/2017 2:06 PM CDT [facility] [place] [address] SURGICAL PATHOLOGY REPORT FINAL Patient Name: CHRISTAL LANZA ? Address: [address] [place] [address] ??Service: ??Urology ??[place], [place] ??[address] ??Location: ??[facility] Taken: 03/09/2017 Gender: M ?? Received: 03/09/2017 : 1955 (Age: 61) Hospital #: ??[id number] Accessioned: 03/10/2017 ?Patient Type: ??[facility] SDS Reported: 03/24/2017 ? Physician(s): Pam Wang M.D. ? Diagnosis: Bladder, stone, removal ? - Lithiasis (gross examination only) Stone analysis: 1st Constituent: 70% Calcium oxalate monohydrate 2nd Constituent: 30% Calcium oxalate dihydrate Stone analysis was performed and interpreted by [facility], [place], [place]. and/03/11/2017 12:14 By this signature, I [...] for chemical stone analysis and contains multiple zavaal-brown, granular calculi measuring 4.0 x 1.6 x 1.6 cm in aggregate and ranging from 0.1 to 0.8 cm in greatest dimension. ??Gross examination only. The specimen is submitted entirely for chemical analysis. ??Jar 0. and03/11/2017 12:13 ?Raij. Kita Izquierdo. ? By this signature, I attest that the above diagnosis is based upon my personal examination of the slides(and/or other material). ?? Surgical Pathology report is available electronically in Clinical Desktop. The performance characteristics of some immunohistochemical stains, fluorescence in-situ hybridization tests and immunophenotyping by flow cytometry cited in this report (if any) were determined by the Surgical Pathology Department at [facility] as part of an ongoing supervisor quality control program and in compliance with federally mandated [...] the Surgical Pathology Department of [facility]. ??It has not been cleared or approved [...] ORD ERABLES Final Result HARPER FAGAN [facility] Department [place] [address] * SURGICAL PATHOLOGY (03/09/2017 12:00 AM CDT) Narrative 03/09/2017 12:00 AM CDT Ordered by an unspecified provider. us Historical Provider MD LAB PATHOLOGY ORDERABLES Final Result documented in this encounter Visit Diagnoses Not on filedocumented in this encounter Care Teams Cranberry Sorter Relationship Specialty Start Date End Date Geovanni Saunders NP [address] [place] [address] [address] [place] [address] PCP - General 01/02/17 04/28/18 documented as of this encounter
--- OUTSIDE RECORDS SUMMARY | 2024-05-31 23:54 | XMS_ITS | Encounter Summary ---
Author Organization [facility] Healthcare Address [address] [place] [address] Care Team Providers Care Line Installer Trolley Name Role Phone Geovanni Saunders DIESEL STATIONARY ENGINEER Primary Care Provider + Encounter Details Date Type Department Care Team (Latest Contact Info) Description 06/15/2017 7:58 AM FRONT OFFICE DIRECTOR - 06/15/2017 11:59 PM FRONT OFFICE DIRECTOR Hospital Encounter [facility] 1 [place] [address] Krishna Rios MD [address] [place] [address] Geovanni Saunders NP [address] [place] [address] [address] [address] Closed fracture of symphysis pubis, right, initial encounter ([facility]) Discharge Disposition: Discharge to home or self care Social History Tobacco Use Types Packs/Day Years Used Date Smoking Tobacco: Never Assessed Sex and Gender Information Value Date Recorded Sex Assigned at Not on file Legal Sex Male 11:14 AM FRONT OFFICE DIRECTOR Gender Identity Not on file Sexual Orientation [...] Read Routine (OP Routine) 06/15/2017 9:32 AM FRONT OFFICE DIRECTOR Closed fracture of symphysis pubis, right, initial encounter ([facility]) documented in this encounter Results * CT Pelvis WO Contrast (06/15/2017 9:32 AM FRONT OFFICE DIRECTOR) Anatomical Region Laterality Modality Body N/A Computed Tomogra phy Impressions 06/15/2017 9:52 AM FRONT OFFICE DIRECTOR 1. ??FRACTURES OF THE RIGHT SUPERIOR AND [...] signed by: Parveen Simms 06/15/2017 9:[address] OFF[address] CT PELVIS WO CONTRAST HISTORY: Other specified [...] documented in this encounter Care Teams Line Installer Trolley Relationship Specialty Start Date End Date Geovanni Saunders NP [address] [place] [address] [address] [place] [address] PCP - General 01/02/17 04/28/18 documented as of this encounter
--- OUTSIDE RECORDS SUMMARY | 2024-05-31 23:54 | XMS_ITS | Encounter Summary ---
Author Organization [facility] Healthcare Address [address] [place] [address] Care Team Providers Care Stenographer Print Shop Name Role Phone Miscellaneous, Not In File Primary Care Provider Unavailable Reason for Visit * Reason Comments Groin Pain Encounter Details Date Type Department Care Team (Late st Contact Info) Description 04/05/2019 2:43 PM EMOTIONAL DISABILITIES TEACHER - 04/05/2019 3:10 PM EMOTIONAL DISABILITIES TEACHER Emergency [facility] Emergency Department 1 [place] [address] Abdominal muscle pain (Primary Dx) Discharge Disposition: Discharge to home or self care Social History Tobacco Use Types Packs/Day Years Used Date Smoking Tobacco: Former Smokeless Tobacco: Never Alcohol Use Standard Drinks/Week Comments Yes 0 (1 standard drink = 0.6 oz pur e alcohol) Sex and Gender Information Value Date Recorded Sex Assigned at Not on file Legal Sex Male 11:14 AM EMOTIONAL DISABILITIES TEACHER Gender Identity Not on file Sexual Orientation Not on file documented as of this encounter Last Filed Vital Signs Vital Sign Reading Time Taken Comments Blood Pressure 123/76 04/05/2019 2:55 PM EMOTIONAL DISABILITIES TEACHER Pulse 72 04/05/2019 2:55 PM EMOTIONAL DISABILITIES TEACHER Temperature 36.9 ??C (98.5 ??F) 04/05/2019 2:55 PM CS T Respiratory Rate 18 04/05/2019 2:55 PM EMOTIONAL DISABILITIES TEACHER Oxygen Saturation 93% 04/05/2019 2:55 PM EMOTIONAL DISABILITIES TEACHER Inhaled Oxygen Concentration - - Weight 68 kg (150 lb) 04/05/2019 2:54 PM EMOTIONAL DISABILITIES TEACHER Height 177.8 cm (5' 10 ) 04/05/2019 2:54 PM EMOTIONAL DISABILITIES TEACHER Body Mass Index 21.52 04/05/2019 2:54 PM EMOTIONAL DISABILITIES TEACHER documented in this encounter Discharge Diagnoses Diagnosis [...] Margot Woodruff NP - 04/05/2019 3:04 PM EMOTIONAL DISABILITIES TEACHER Use over the counter Tylenol and Motrin per manufacturers guidelines for relief of pain and fever. Do not drive while taking Baclofen as it may cause drowsiness IONAL DISABILITIES TEACHER IONAL DISABILITIES TEACHER * Attachments The following attachments cannot be sent through Care Everywhere. * Myalgias (Bahamian) documented in this encounter Medications at Time [...] mcg tablet Take 88 mcg by mouth resident programs assistant before breakfast 04/12/2018 0 methadone (DOLOPHINE) 10 [...] and Memory: Cognition normal. Judgment: Judgment normal. [facility] ED Course as of Apr 05 1504 Time: 04/05 1457 Comment: Discussed with pt benefits of stop smoking and encouraged to stop smoking. Pt was counseled on smoking sensation. By: Margot Woodruff NP Abdominal muscle pain Margot Woodruff NP 04/05/19 1504 Cosigned by Geovanni Lopez MD at 04/05/2019 7:57 PM EMOTIONAL DISABILITIES TEACHER IONAL DISABILITIES TEACHER IONAL DISABILITIES TEACHER Associated attestation - Geovanni Lopez MD - 04/05/2019 7:57 PM EMOTIONAL DISABILITIES TEACHER ED Attestation Based on the medical record the care appears appropriate. * Rebekah Tenorio RN - 04/05/2019 2:52 PM CST Pt presents to the ED from home. Pt states he pulled his right groin last night IONAL DISABILITIES TEACHER documented in this encounter Plan of Treatment Not on file documented as of this encounter Visit Diagnoses Diagnosis Abdominal muscle pain- Primary documented in this encounter Discontinued Medications Medication Sig Discontinue Reason Start Date End Da te tiZANidine (ZANAFLEX) 4 mg tablet Take 4 mg by mouth. 04/05/2019 documented as of this encounter Care Teams Stenographer Print Shop Relationship Specialty Start Date End Date Miscellaneous, Not In File PCP - General 04/29/1805/13 documented as of this encounter
--- OUTSIDE RECORDS SUMMARY | 2024-05-31 23:54 | XMS_ITS | Encounter Summary ---
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
--- OUTSIDE RECORDS SUMMARY | 2024-05-31 23:54 | XMS_ITS | Encounter Summary ---
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
--- OUTSIDE RECORDS SUMMARY | 2024-05-31 23:54 | XMS_ITS | Encounter Summary ---
Author Organization [facility] Healthcare Address [address] [place] [address] Care Team Providers Care A&P Technician Name Role Phone Unavailable Primary Care Provider Unavailabl e Encounter Details Date Type Department Care Team (Late st Contact Info) Description 10/13/2013 10:47 AM CDT - 10/13/2013 12:14 PM CDT Hospital Encounter [facility] [address] [place], [place] [id number] Constipation; Urinary frequency; Tobacco use disorder; Personal history of urinary calculi Social History Tobacco Use Types Packs/Day Years Used Date Smoking Tobacco: Never Assessed Sex and Gender Information Value Date Recorded Sex Assigned at Not on file Legal Sex Male 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 [facility] Patient Name: CHRISTAL LANZA ? [facility] Healthcare Age: 58 YRS ?: 1955 ?Sex:M ?[address] )[id number] ?? Adm Dt: 10/13/2013 ?[place], [place] ??[id number] Created: 10/14/2013 ??0036 ?? Pt. Type: E [...]
--- OUTSIDE RECORDS SUMMARY | 2024-05-31 23:54 | XMS_ITS | Encounter Summary ---
Author Organization [facility] Healthcare Address [address] [place] [address] Care Team Providers Care Gas Meter Repair Supervisor Name Role Phone Unavailable Primary Care Provider Unavailabl e Encounter Details Date Type Department Care Team (Late st Contact Info) Description 01/25/2013 12:44 PM CDT - 01/25/2013 11:59 PM CDT Hospital Encounter [facility] Joe Melton MD [address] [place] [address] Irena Huerta, STAFFING COORDINATOR [address] [address] Shortness of breath Social History Tobacco Use Types Packs/Day Years Used Date Smoking Tobacco: Never Assessed Sex and Gender Information Value Date Recorded Sex Assigned at Not on file Legal Sex Male 11:14 AM PHYSICAL THERAPY COORDINATOR Gender Identity Not on file Sexual [...]
--- OUTSIDE RECORDS SUMMARY | 2024-05-31 23:54 | XMS_ITS | Encounter Summary ---
Author Organization [facility] Healthcare Address [address] [place] [address] Care Team Providers Care Vault Keeper Name Role Phone Miscellaneous, Not In File Primary Care Provider Unavailable Reason for Visit * Reason Comments bruising Encounter Details Date Type Department Care Team (Late st Contact Info) Description 04/29/2018 3:48 PM ESCALATOR MECHANIC - 04/29/2018 4:59 PM ESCALATOR MECHANIC Emergency [facility] Emergency Department [address] [place] [address] Suhas Sam MD 1 [facility] [place] [address] Contusion of upper extremity, unspecified laterality, initial [...] on file Legal Sex Male 11:14 AM ESCALATOR MECHANIC Gender Identity Not on file Sexual Orientation Not on file documented as of this encounter Last Filed Vital Signs Vital Sign Reading Time Taken Comments Blood Pressure 112/71 04/29/2018 4:33 PM ESCALATOR MECHANIC Pulse 71 04/29/2018 4:33 PM ESCALATOR MECHANIC Temperature 36.3 ??C (97.3 ??F) 04/29/2018 4:33 PM CS T Respiratory Rate 20 04/29/2018 4:33 PM ESCALATOR MECHANIC Oxygen Saturation 95% 04/29/2018 4:33 PM ESCALATOR MECHANIC Inhaled Oxygen Concentration - - Weight 68.9 kg (152 lb) 04/29/2018 4:33 PM ESCALATOR MECHANIC Height 177.8 cm (5' 10 ) 04/29/2018 4:33 PM ESCALATOR MECHANIC Body Mass Index 21.81 04/29/2018 4:33 PM ESCALATOR MECHANIC documented in this encounter Discharge Instructions * Discharge Instructions* Suhas Sam MD - 04/29/2018 4:55 PM ESCALATOR MECHANIC Please return to the ED if having DrShahana Javed stools, lightheadedness, chest pain, or for any other concerns. LATOR MECHANIC * Attachments The following attachments cannot be sent through Care Everywhere. * Soft Tissue Contusion (Kenyan) documented in this encounter Medications at Time [...] mcg tablet Take 88 mcg by mouth administrative executive before breakfast 04/12/2018 0 methadone (DOLOPHINE) 10 [...] documented in this encounter ED Notes * Farnchesca Oh RN - 04/29/2018 4:32 PM CST Patient presents to the emergency room for evaluation of bruising without injury to bilateral arms.Patient in no distress. LATOR MECHANIC * Suhas Sam MD - 04/29/2018 4:09 [...] thromboplastin time (PTT) Suhas Sam MD 04/29/187 LATOR MECHANIC documented in this encounter Plan of Treatment Not on file documented as of this encounter Procedures Procedure Name Priority Date/Time Associated Diagnosis Comments EGFR STAT 04/29/2018 4:19 PM ESCALATOR MECHANIC DIFFERENTIAL AUTO STAT 04/29/2018 4:1 9 PM ESCALATOR MECHANIC CBC WITH AUTO DIFFERENTIAL STAT 04/29/2018 4:19 PM ESCALATOR MECHANIC APTT STAT 04/29/2018 4:19 PM ESCALATOR MECHANIC PROTIME-INR STAT 04/29/2018 4:19 PM ESCALATOR MECHANIC COMPREHENSIVE METABOLIC PANEL STAT 04/29/2018 4:19 PM ESCALATOR MECHANIC documented in this encounter Results * eGFR (04/29/2018 4:19 PM ESCALATOR MECHANIC) eGFR >60 mL/min/1.7 3 m2 [facility] GUERRERO ([place]) Comment: Interpretive Data Reference Interval Normal ?>/= 90 mL/min/1.73m2 Mildly decreased* ? 60 - 89 mL/min/1.73m2 Mildly to moderately decreased ?45 - 59 mL/min/1.73m2 Moderately to severely decreased ??30 - 44 mL/min/1.73m2 Severely decreased ?15 - 29 mL/min/1.73m2 Kidney Failure ?< 15 ??mL/min/1.73m2 *Relative to young adult level If -Kittitian multiply value by 1.16. Estimated glomerular filtration [...] 2015. Blood specimen (specimen) 04/29/2018 4:19 PM ESCALATOR MECHANIC 04/29/2018 4:23 PM ESCALATOR MECHANIC Narrative HARPER [place]) - 04/29/2018 4:43 PM ESCALATOR MECHANIC us Suhas Sam MD LAB BLOOD ORDERABLES Final R esult HARPER GUERRERO ([place]) 1 [facility] [place] [address] * Differential, auto (04/29/2018 4:19 PM ESCALATOR MECHANIC) Neutrophil abs 5.2 1.7 - 6.5 K/cumm [facility] ([place]) [...] 2017. Blood specimen (specimen) 04/29/2018 4:19 PM ESCALATOR MECHANIC 04/29/2018 4:23 PM ESCALATOR MECHANIC Narrative HARPER GUERRERO ([place]) - 04/29/2018 4:25 PM ESCALATOR MECHANIC Suhas Sam MD LAB BLOOD ORDERABLES Final R esult [facility]ERO ([place]) 1 [facility] [employer] [place] [address] * Protime-INR (04/29/2018 4:19 PM ESCALATOR MECHANIC) PT 12.5 9.5 - 13.0 sec HARPER YOLANDA ([place]) INR 1.11 0.90 - 1.20 HARPER YOLANDA ([place]) Comment: Interpretive Data Recommended ranges for Protime INR: 2.0 - 3.0 Most indications for Warfarin therapy (e.g. Treatment of DVT, PE, bioprosthetic valve replacement, prophylaxis venous thrombosis, atrial fibrillation). 2.5 - 3.5 Mechanical mitral valve or dual mechanical mitral and Aortic valve replacement. Current Interpretive Data was last revised on 2015. Blood specimen (specimen) 04/29/2018 4:19 PM ESCALATOR MECHANIC 04/29/2018 4:23 PM ESCALATOR MECHANIC Narrative HAR[facility] GUERRERO ([place]) - 04/29/2018 4:36 PM ESCALATOR MECHANIC us Suhas Sam MD LAB BLOOD ORDERABLES Final R esult Performing Organization Address City/[facility]/ZIP Co de Phone Number HARPER GUERRERO ([place]) 1 [facility] [place] [address] * (ABNORMAL) aPTT (04/29/2018 4:19 PM ESCALATOR MECHANIC) aPTT 38.1(H) 25.0 - 37.0 sec CONNORSHAE GUERRERO ([place]) Blood specimen (specimen) 04/29/2018 4:19 PM ESCALATOR MECHANIC 04/29/2018 4:23 PM ESCALATOR MECHANIC Narrative [facility] ([place]) - 04/29/2018 4:39 PM ESCALATOR MECHANIC us Suhas Sam MD LAB BLOOD ORDERABLES Final R esult [facility] GUERRERO ([place]) 1 [facility] [place] [address] * Comprehensive metabolic panel (04/29/2018 4:19 PM ESCALATOR MECHANIC) Sodium 138 135 - 145 mmol/L CERNER [...] ([place]) Blood specimen (specimen) 04/29/2018 4:19 PM ESCALATOR MECHANIC 04/29/2018 4:23 PM ESCALATOR MECHANIC Narrative [facility] ([place]) - 04/29/2018 4:43 PM ESCALATOR MECHANIC us Suhas Sam MD LAB BLOOD ORDERABLES Final R esult [facility] ([place]) 1 [facility] [place] [address] * (ABNORMAL) CBC with auto differential (04/29/2018 4:19 PM ESCALATOR MECHANIC) WBC 7.6 3.8 - 9.9 K/cumm CERNER [...] ([place]) Blood specimen (specimen) 04/29/2018 4:19 PM ESCALATOR MECHANIC 04/29/2018 4:23 PM ESCALATOR MECHANIC Narrative [facility] ([place]) - 04/29/2018 4:25 PM ESCALATOR MECHANIC us Suhas Sam MD LAB BLOOD ORDERABLES Final R esult [facility]ERRERO [place] 1 [facility] Department [place] [address] documented in this encounter Visit Diagnoses Diagnosis Contusion of upper extremity, unspecified laterality, initial encounter- Primary Elevated partial thromboplastin time (PTT) Abnormal coagulation profile documented in this encounter Historical Medications * This list may reflect changes made after this encounter. levothyroxine (SYNTHROID, LEVOTHROID) 100 mcg tablet Take 88 mcg by mouth administrative executive before breakfast 04/12/2018 0 raNITIdine (ZANTAC) 300 mg tablet 04/12/2018 0 added in this encounter Care Teams Vault Keeper Relationship Specialty Start Date End Date Miscellaneous, Not In File PCP - General 04/29/1805/13 documented as of this encounter
--- OUTSIDE RECORDS SUMMARY | 2024-05-31 23:54 | XMS_ITS | Encounter Summary ---
Author Organization [facility] Address [address] [place] [address] Care Team Providers Care Hospital Carrier Name Role Phone Geovanni Saunders SENIOR FIELD SERVICE ENGINEER Primary Care Provider + Encounter Details Date Type Department Care Team (Late st Contact Info) Description 08/12/2017 1:00 PM CDT Office Visit [facility] Medical [facility] Medicine [address] [facility] [address] [place] [phone] Kelsey Arndt PA [address] [facility] [address] [place] [address] Closed fracture of right inferior pubic ramus [...] on file Legal Sex Male 11:14 AM EVENT REPRESENTATIVE Gender Identity Not on file Sexual [...] of right superior pubic ramus, initial encounter ([facility]) - XR Pelvis 1 or 2 [...] of right superior pubic ramus, initial encounter ([facility]) - XR Pelvis 1 or 2 [...] of right superior pubic ramus, initial encounter ([facility]) documented in this encounter Results * [...] encounter documented in this encounter Care Teams Hospital Carrier Relationship Specialty Start Date End Date Geovanni Saunders NP [address] [facility] [address] [place] [address] PCP - General 01/02/17 04/28/18 documented as of this encounter
--- OUTSIDE RECORDS SUMMARY | 2024-05-31 23:54 | XMS_ITS | Encounter Summary ---
Author Organization [facility] Healthcare Address [address] [place] [address] Care Team Providers Care Anatomy And Physiology Instructor Name Role Phone Geovanni Saunders PRIMER SUPERVISOR Primary Care Provider + Encounter Details Date Type Department Care Team (Latest Contact Info) Description 10/28/2017 10:29 AM CDT - 10/28/2017 11:59 PM CDT Hospital Encounter [facility] [address] [place] [address] Geovanni Saunders, JUANJOSE [address] [place] [address] Krishna Rios MD [address] [place] [address] Abnormal levels of other serum enzymes Discharge Disposition: Discharge to home or self care Social History Tobacco Use Types Packs/Day Years Used Date Smoking Tobacco: Former Smokeless Tobacco: Never Alcohol Use Standard Drinks/Week Comments Yes 0 (1 standard drink = 0.6 oz pur e alcohol) Sex and Gender Information Value Date Recorded Sex Assigned at Not on file Legal Sex Male 11:14 AM JBOSS DEVELOPER Gender Identity Not on file Sexual [...] by: Negrito Pizarro Jr., M.D. Geovanni Saunders PRIMER SUPERVISOR IMG US PROCEDURES Final Result documented in this encounter Visit Diagnoses Diagnosis Abnormal levels of other serum enzymes documented in this encounter Care Teams Anatomy And Physiology Instructor Relationship Specialty Start Date End Date Geovanni Saunders, JUANJOSE [address] [place] [address] PCP - General 01/02/17 04/28/18 documented as of this encounter
--- OUTSIDE RECORDS SUMMARY | 2024-05-31 23:54 | XMS_ITS | Encounter Summary ---
Author Organization [facility] Healthcare Address [address] [place] [address] Care Team Providers Care Callisthenics Instructor Name Role Phone Geovanni Saunders DATA GOVERNANCE CONSULTANT Primary Care Provider + Encounter Details Date Type Department Care Team (Latest Contact Info) Description 06/28/2017 9:46 PM PRESS TENDER SHORT GOODS - 06/28/2017 11:59 PM PRESS TENDER SHORT GOODS Hospital Encounter [facility] Discharge Disposition: Discharge to home or self care Social History Tobacco Use Types Packs/Day Years Used Date Smoking Tobacco: Former Smokeless Tobacco: Never Alcohol Use Standard Drinks/Week Comments Yes 0 (1 standard drink = 0.6 oz pur e alcohol) Sex and Gender Information Value Date Recorded Sex Assigned at Not on file Legal Sex Male 11:14 AM PRESS TENDER SHORT GOODS Gender Identity Not on file Sexual Orientation [...] on filedocumented in this encounter Care Teams Callisthenics Instructor Relationship Specialty Start Date End Date Geovanni Saunders NP [address] [place] [address] [address] [place] [address] PCP - General 01/02/17 04/28/18 documented as of this encounter
--- OUTSIDE RECORDS SUMMARY | 2024-05-31 23:54 | XMS_ITS | Encounter Summary ---
Author Organization [facility] Healthcare Address [address] [place] [address] Care Team Providers Care Entomology Professor Name Role Phone Unavailable Primary Care Provider Unavailabl e Encounter Details Date Type Department Care Team ([facility] st Contact Info) Description 10/28/2012 3:18 PM CDT - 10/28/2012 11:59 PM CDT Hospital Encounter [facility] Bo MD [address] [place] [address] Social History Tobacco Use Types Packs/Day Years Used Date Smoking Tobacco: Never Assessed Sex and Gender Information Value Date Recorded Sex Assigned at Not on file Legal Sex Male 11:14 AM TRANSPORTATION MECHANIC Gender Identity Not on file Sexual [...] CDT XR Knee Min 4 Views R ??[id number] ??Acc#: ??[id number] DATE OF EXAM: ??Oct ??2012 CLINICAL HISTORY: [...] NORMAL RIGHT KNEE. XR Lumbar Spine Routine ??[id number] ??Acc#: ??[id number] DATE OF EXAM: ??Mode ??2012 CLINICAL HISTORY: [...] 09/17/2016 XR Knee Min 4 Views R [id number] Acc#: [id number] DATE OF EXAM: Oct 28 2012 CLINICAL HISTORY: Low back and right knee pain, no known injury. RESULT: Four views of the right knee demonstrate no evidence of fracture ordislocation. Chondrocalcinosis of the menisci is present. The jointspaces are normally aligned. Vascular calcification is noted. The softtissues are otherwise normal. IMPRESSION: 1. MENISCAL CHONDROCALCINOSIS. 2. OTHERWISE NORMAL RIGHT KNEE. XR Lumbar Spine Routine [id number] Acc#: [id number] DATE OF EXAM: Oct 28 2012 CLINICAL [...] CDT XR Knee Min 4 Views R ??[id number] ??Acc#: ??[id number] DATE OF EXAM: ??Mode ??2012 CLINICAL HISTORY: [...] NORMAL RIGHT KNEE. XR Lumbar Spine Routine ??[id number] ??Acc#: ??[id number] DATE OF EXAM: ??Mode ??2012 CLINICAL HISTORY: Same. RESULT: AP, lateral and bilateral oblique projections of the lumbar spine demonstrate mild degenerative endplate spurring diffusely. ??There is no evidence of fracture or spondylolisthesis. ??The soft tissues are normal. IMPRESSION: 1. DEGENERATIVE ENDPLATE CHANGES OF THE LUMBAR SPINE. 2. NO EVIDENCE OF FRACTURE OR MALALIGNMENT. Interpreting Physician: ??DR PATRICIA BENJAMIN M.D. ??Read on: ??Mode ??6 2012 4:28P Transcribed by: ??bernardino ??On: Oct ??6 2013 ??7:11P Approved Electronically by: ??SOURAV Adames, DR GOMEZ ??on: ??Mode ??6 2012 11:29P Ordering DR: FERNANDEZ HAZEL Attending DR: FERNANDEZ HAZEL Procedure Note Provider, Edmund, - 09/17/2016 XR Knee Min 4 Views R [id number] Acc#: [id number] DATE OF EXAM: Oct 28 2012 CLINICAL HISTORY: Low back and right knee pain, no known injury. RESULT: Four views of the right knee demonstrate no evidence of fracture ordislocation. Chondrocalcinosis of the menisci is present. The jointspaces are normally aligned. Vascular calcification is noted. The softtissues are otherwise normal. IMPRESSION: 1. MENISCAL CHONDROCALCINOSIS. 2. OTHERWISE NORMAL RIGHT KNEE. XR Lumbar Spine Routine [id number] Acc#: [id number] DATE OF EXAM: Oct 28 2012 CLINICAL [...]
--- OUTSIDE RECORDS SUMMARY | 2024-05-31 23:54 | XMS_ITS | Encounter Summary ---
Author Organization [facility] Healthcare Address [address] [place] [address] Care Team Providers Care Winderman Name Role Phone Geovanni Saunders CORRECTIONAL COUNSELOR/CASE MANAGER Primary Care Provider + Encounter Details Date Type Department Care Team (Late st Contact Info) Description 11/24/2017 9:52 AM CDT Anesthesia Event [address] [address] [place] [address] [address] Anesthesia Record Procedure Summary Procedure Name Responsible [...] on file Legal Sex Male 11:14 AM WAREHOUSE LOADER Gender Identity Not on file Sexual Orientation Not on file documented as of this encounter OR Notes * Anesthesia Postprocedure Evaluation - Zakia Bennett CRNA - 11/24/2017 10:25 AM CDT Patient: Saravanan Lanza Procedure Summary Date: 11/24/17 Room / Location: [facility] / [facility] Anesthesia Start: 951 Anesthesia Stop: [...] - patient participated Level of consciousness: arouses system integration engineer Pain management: satisfactory to patient Airway patency: [...] Medication protocol when under care of a DATA CENTER CONSULTANT Planned anesthesia: General/TIVA Induction: Induction: intravenous. Informed Consent: Discussed plan with DATA CENTER CONSULTANT. Anesthesia plan and risks discussed with patient. [...] mL/hr documented in this encounter Care Teams Winderman Relationship Specialty Start Date End Date Geovanni Saunders NP [address] [place] [address] [address] [place] [address] PCP - General 01/02/17 04/28/18 documented as of this encounter
--- OUTSIDE RECORDS SUMMARY | 2024-05-31 23:54 | XMS_ITS | Encounter Summary ---
Author Organization [facility] Address [address] [facility] [address] [place] [address] Care Team Providers Care Facility Maintenance Technician Name Role Phone Geovanni Saunders INSEAM TRIMMER Primary Care Provider + Reason for Visit * Reason Comments Follow-up Encounter Details Date Type Department Care Team (Late st Contact Info) Description 09/08/2017 11:00 AM CDT Office Visit [facility] Orthopedics and Sports Medicine [address] [facility] [address] [place] [address] Sav Hussein PA [address] [facility] [address] [place], [place] [id number] Orthopedic aftercare (Primary Dx) Social History Tobacco Use Types Packs/Day Years Used Date Smoking Tobacco: Former Smokeless Tobacco: Never Alcohol Use Standard Drinks/Week Comments Yes 0 (1 standard drink = 0.6 oz pur e alcohol) Sex and Gender Information Value Date Recorded Sex Assigned at Not on file Legal Sex Male 11:14 AM SCREEN MAKING TECHNICIAN Gender Identity Not on file Sexual [...] aftercare documented in this encounter Care Teams Facility Maintenance Technician Relationship Specialty Start Date End Date Geovanni Saunders NP [address] [place] [address] [address] [place] [address] PCP - General 01/02/17 04/28/18 documented as of this encounter
--- OUTSIDE RECORDS SUMMARY | 2024-05-31 23:54 | XMS_ITS | Encounter Summary ---
Author Organization [facility] Healthcare Address [address] [place] [address] Care Team Providers Care Utilities Manager Name Role Phone Geovanni Saunders CONCRETE BLOCK MOLDER Primary Care Provider + Encounter Details Date Type Department Care Team (Late st Contact Info) Description 01/27/2017 9:03 PM CDT - 01/27/2017 11:59 PM CDT Hospital Encounter [facility] [phone] Lopez Wang MD [address] [facility] [address] [place] [address] Discharge Disposition: Discharge to home or self care Social History Tobacco Use Types Packs/Day Years Used Date Smoking Tobacco: Never Assessed Sex and Gender Information Value Date Recorded Sex Assigned at Not on file Legal Sex Male 11:14 AM COMPUTER PROJECT MANAGER Gender Identity Not on file Sexual Orientation [...] CDT) Report Final Report: No growth [facility] Urine, catheterized 01/28/20 11:49 AM CDT 01/27/2017 9:34 PM CDT Narrative [facility] - 01/29/2017 7:24 AM CDT us Lopez Wang MD LAB MICROBIOLOGY - GENERAL ORD ERABLES Final Result [facility] Department [place] [address] * DISCHARGE LABORATORY CUMULATIVE REPORT (01/27/2017 12:00 AM CDT) Narrative 01/27/2017 12:00 AM CDT Ordered by an unspecified provider. Historical Provider LAB BLOOD ORDERABLES Cecilia l Result documented in this encounter Visit Diagnoses Not on filedocumented in this encounter Care Teams Utilities Manager Relationship Specialty Start Date End Date Geovanni Saunders NP [address] [place] [address] [address] [facility] [place] [address] PCP - General 01/02/17 04/28/18 documented as of this encounter
--- OUTSIDE RECORDS SUMMARY | 2024-05-31 23:54 | XMS_ITS | Encounter Summary ---
Author Organization [facility] Healthcare Address [address] [place] [address] Care Team Providers Care Sewer Head Name Role Phone Geovanni Saunders LINE PRODUCER Primary Care Provider + Encounter Details Date Type Department Care Team (Latest Contact Info) Description 05/29/2017 9:18 AM COOK MANAGER - 05/29/2017 11:59 PM COOK MANAGER Hospital Encounter [facility] [address] [place] [address] Patricio Hernadez PA [address] [address] Chronic hepatitis C with hepatic coma (CMS/HCC) Discharge Disposition: Discharge to home or self care Social History Tobacco Use Types Packs/Day Years Used Date Smoking Tobacco: Never Assessed Sex and Gender Information Value Date Recorded Sex Assigned at Not on file Legal Sex Male 11:14 AM COOK MANAGER Gender Identity Not on file Sexual [...] Read Routine (OP Routine) 05/29/2017 10:26 AM COOK MANAGER Chronic hepatitis C with hepatic coma (CMS/HCC) documented in this encounter Results * US Liver (05/29/2017 10:26 AM COOK MANAGER) Anatomical Region Laterality Modality Abdomen N/A Ultrasound Impressions 05/29/2017 10:41 AM COOK MANAGER 1. ??SIGNIFICANT EXTRAHEPATIC BILIARY DUCTAL DILATATION. 2. ??POORLY VISUALIZED RETROPERITONEAL STRUCTURES DUE TO BOWEL GAS. Electronically signed by: Nikos Mead M.D. Narrative 05/29/2017 10:41 AM COOK MANAGER US LIVER HISTORY: Chronic viral hepatitis C. [...] coma documented in this encounter Care Teams Sewer Head Relationship Specialty Start Date End Date Geovanni Saunders NP [address] [place] [address] [address], [place] [address] PCP - General 01/02/17 04/28/18 documented as of this encounter
--- OUTSIDE RECORDS SUMMARY | 2024-05-31 23:54 | XMS_ITS | Encounter Summary ---
Author Organization [facility] Healthcare Address [address] [place] [address] Care Team Providers Care Food Service Utility Worker Name Role Phone Geovanni Saunders C CONSULTANT Primary Care Provider + Encounter Details Date Type Department Care Team (Latest Contact Info) Description 11/24/2017 8:13 AM CDT - 11/24/2017 11:25 AM CDT Hospital Encounter [facility] [address] [place] [address] Dewayne Alaniz MD [address] [place] [address] Weight loss Discharge Disposition: Discharge to home or self care Social History Tobacco Use Types Packs/Day Years Used Date Smoking Tobacco: Former Smokeless Tobacco: Never Alcohol Use Standard Drinks/Week Comments Yes 0 (1 standard drink = 0.6 oz pur e alcohol) Sex and Gender Information Value Date Recorded Sex Assigned at Not on file Legal Sex Male 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 The Endoscope GIF-H190 [id number] was introduced through the mouth, and advanced [...] 9:43 AM Procedure Code(s): --- Professional --- 90813, Esophagogastroduodenoscopy, flexible, transoral; with biopsy, single or multiple Diagnosis Code(s): --- Professional --- K31.89, Other diseases of stomach and duodenum K22.8, Other specified diseases of esophagus R63.4, Abnormal weight loss R19.7, Diarrhea, unspecified CPT copyright 2017 [employer]. All rights reserved. The codes documented in this report are preliminary and upon fruit distributor review may be revised to meet current compliance requirements. Recognized by the [employer] [place] [employer] for promoting quality in endoscopy * Dewayne Alaniz MD - 11/24/2017 9:42 AM CDTAssociated Order(s): COLONOSCOPY [facility] Patient Name: Christal Lanza Procedure Date: 11/24/2017 9:42 AM Date of : 1955 Admit Type: Outpatient Age: 62 Gender: Male Attending MD: Dewayne Alaniz MD Room: [facility] ENDOSCOPY CAPSULE Note Status: Finalized Patient [...] under direct vision. The Pediatric Colonoscope PCF-H190L [id number] was introduced through the anus and advanced [...] 9:42 AM Procedure Code(s): --- Professional --- 97541, Colonoscopy, flexible; with biopsy, single or multiple Diagnosis Code(s): --- Professional --- K64.8, Other hemorrhoids R63.4, Abnormal weight loss R19.7, Diarrhea, unspecified CPT copyright 2017 [employer]. All rights reserved. The codes documented in this report are preliminary and upon fruit distributor review may be revised to meet current compliance requirements. Recognized by the [employer] [place] [employer] for promoting [...] PM CDT Narrative 11/30/2017 12:24 PM CDT [facility] results best viewed via link to PDF [facility] Department of Pathology [address] [place] [address] Final Report Patient Name: ??CHRISTAL LANZA Address: ??[address] [place] [address], ??[place], [place] [address] Gender: ??M : ??1955 (Age: 62) Service: ??Gastro Location: [facility] #: ??[id number] Patient Type: ??[facility] Accession # ?[id number] Taken: ??11/24/2017 Received: ??11/24/2017 Accessioned: ??11/24/2017 Reported: [...] determined by the Surgical Pathology Department at [facility] as part of an ongoing clinical quality assurance specialist program and in compliance [...] by the Surgical Pathology Department [facility]. ??It has not been cleared or approved [...] - GENERAL ORDERABLES Final Result [facility] [address] [facility] Department [place] [address] * EGD (11/24/2017 9:43 AM CDT) Anatomical Region Laterality Modality Other Narrative Procedure Note Dewayne Alaniz MD - 11/24/2017 9:43 AM CDT [facility] Patient Name: Christal Lanza Procedure Date: 11/24/2017 9:43 AM Date of : 1955 Admit Type: Outpatient Age: 62 Gender: Male Attending MD: Dewayne Alaniz MD Room: [facility] ENDOSCOPY CAPSULE Note Status: Finalized Patient Profile: 62 WM with unexplained weight loss, and abnormal stool/diarrhea Procedure: Upper GI endoscopy Indications: Diarrhea, Weight loss Referring MD: Geovanni Saunders, C CONSULTANT Providers: Dewayne Alaniz MD Impression: - Normal [...] was passed under direct vision.The Endoscope GIF-H190 [id number] was introduced throughthe mouth, and advanced to [...] 9:43 AM Procedure Code(s): --- Professional --- 48281, Esophagogastroduodenoscopy, flexible, transoral; with biopsy, single or multiple Diagnosis Code(s): --- Professional --- K31.89, Other diseases of stomach and duodenum K22.8, Other specified diseases of esophagus R63.4, Abnormal weight loss R19.7, Diarrhea, unspecified CPT copyright 2017 [employer]. All rights reserved. The codes documented in this report are preliminary and upon fruit distributor reviewmay be revised to meet current compliance requirements. Recognized by the [employer] for promoting quality in endoscopy Dewayne Alaniz MD ENDOSCOPY PROCEDURES Final Result * COLONOSCOPY (11/24/2017 9:42 AM CDT) Anatomical Region Laterality Modality Other Narrative Procedure Note Dewayne Alnaiz MD - 11/24/2017 9:42 AM CDT [facility] Patient Name: Christal Lanza Procedure Date: 11/24/2017 9:42 AM Date of : 1955 Admit Type: Outpatient Age: 62 Gender: Male Attending MD: Dewayne Alaniz MD Room: [facility] ENDOSCOPY CAPSULE Note Status: Finalized Patient Profile: 62 WM with unexplained weight loss, and abnormal stool/diarrhea, no family h/o colon cancer. Procedure: Colonoscopy Indications: Last colonoscopy: November 2008, Clinically significant diarrhea of unexplained origin, Weight loss Referring MD: eGovanni Saunders, C CONSULTANT Providers: Dewayne Alaniz MD Impression: - The [...] passed under direct vision.The Pediatric Colonoscope PCF-H190L [id number] was introduced through the anus and advanced [...] 9:42 AM Procedure Code(s): --- Professional --- 37556, Colonoscopy, flexible; with biopsy, single or multiple Diagnosis Code(s): --- Professional --- K64.8, Other hemorrhoids R63.4, Abnormal weight loss R19.7, Diarrhea, unspecified CPT copyright 2017 [employer]. All rights reserved. The codes documented in this report are preliminary and upon fruit distributor reviewmay be revised to meet current compliance requirements. Recognized by the [employer] for promoting [...] 11/24/2017 documented in this encounter Care Teams Food Service Utility Worker Relationship Specialty Start Date End Date Geovanni Saunders NP [address] [place] [address] [address] [place] [address] PCP - General 01/02/17 04/28/18 documented as of this encounter
--- OUTSIDE RECORDS SUMMARY | 2024-05-31 23:54 | XMS_ITS | Encounter Summary ---
Author Organization [facility] Address [address] [facility] [address] [place] [address] Care Team Providers Care Flight Control Specialist Name Role Phone Geovanni Saunders NP Primary Care Provider + Encounter Details Date Type Department Care Team (Latest Contact Info) Description 09/08/2017 7:50 AM CDT - 09/08/2017 11:59 PM CDT Hospital Encounter [facility] Orthopedics and Sports Medicine [address] [place] [address] [address] [place] [phone] Discharge Disposition: Discharge to home or self care Social History Tobacco Use Types Packs/Day Years Used Date Smoking Tobacco: Former Smokeless Tobacco: Never Alcohol Use Standard Drinks/Week Comments Yes 0 (1 standard drink = 0.6 oz pur e alcohol) Sex and Gender Information Value Date Recorded Sex Assigned at Not on file 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
--- OUTSIDE RECORDS SUMMARY | 2024-05-31 23:54 | XMS_ITS | Encounter Summary ---
Author Organization [facility] Healthcare Address [address] [place] [address] Care Team Providers Care Recruit Instructor Name Role Phone Geovanni Saunders EMERGENCY ROOM PHYSICIAN ASSISTANT Primary Care Provider + Reason for Visit * Reason Comments Altered Mental Status Encounter Details Date Type Department Care Team (Late st Contact Info) Description 06/28/2017 10:13 PM LOADING CHECKER - 06/29/2017 12:59 AM LOADING CHECKER Emergency [facility] Emergency Department [address] [place] [address] Ignacio Sue MD [address] [place] [id number] Transient alteration of awareness (Primary Dx); Drug-induced [...] on file Legal Sex Male 11:14 AM LOADING CHECKER Gender Identity Not on file Sexual Orientation Not on file documented as of this encounter Last Filed Vital Signs Vital Sign Reading Time Taken Comments Blood Pressure 109/46 06/29/2017 12:45 AM LOADING CHECKER Pulse 104 06/29/2017 12:45 AM LOADING CHECKER Temperature 38.2 ??C (100.7 ??F) 06/29/2017 12:45 AM LOADING CHECKER Respiratory Rate 16 06/29/2017 12:45 AM LOADING CHECKER Oxygen Saturation 93% 06/29/2017 12:45 AM LOADING CHECKER Inhaled Oxygen Concentration - - Weight - - Height - - Body Mass Index - - documented in this encounter Discharge Instructions * Discharge Instructions* Ignacio Sue MD - 06/29/2017 12:28 AM LOADING CHECKER Follow up with your doctor to get a referral for an outpatient MRI of the brain. Decrease the dose of the Zanaflex to one pill twice a day only. ING CHECKER * Attachments The following attachments cannot be sent through Care Everywhere. 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 EMS state that the patient was warm to the touch and tachycardic. The patient followed simple commands but was unable to liftleft arm completely. He was found to be incontinent and stated that it pedro when he urinates. EMS a lso states the patient is a methadone user and is known to [place] with his medications . Patient has a [...] Dr. Sue. Signed by: Jessica Ward, 06/28/17, 4202 Ignacio Sue MD 06/29/17 0034 ING CHECKER * Dorina Bryan RN - 06/28/2017 11:24 PM CST 62 yr old male arrives to the ED per EMS. EMS reported called due to pt unresponsive. Pt alert and oriented x 1. Pt speech clear. No facial asymmetry noted. Pt denies any headache or blurred vision. 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 Pt's sister at bedside states pt with some confusion at home and was incontinent of urine. ING CHECKER * Varsha Turcios RN - 06/28/2017 10:18 PM CST Bed: ED05 Expected date: 06/28/17 Expected time: 10:11 PM Means of arrival: Comments: 25 Varsha Turcios RN 06/28/17 7023 ING CHECKER documented in this encounter Miscellaneous Notes * ED Procedure Note - Ignacio Sue MD - 06/28/2017 11:54 PM LOADING CHECKER Associated Order(s): ECG 12-LEAD Procedure ECG 12 lead Date/Time: 06/28/2017 11:54 PM Performed by: IGNACIO SUE Authorized by: IGNACIO SUE Quality: Tracing quality: Limited by artifact Rate: ECG rate assessment: tachycardic Rhythm: Rhythm: sinus rhythm Ectopy: Ectopy: none ST segments: ST segments: Normal T waves: T waves: normal Recommended Follow-up: Recommended follow up: no further workup needed Ignacio Sue MD 06/28/17 9066 ING CHECKER documented in this encounter Plan of Treatment Pending Results Name Type Priority Associated Diagnoses Date /Time ECG 12 lead ECG STAT 06/28/2017 11 :59 PM LOADING CHECKER documented as of this encounter Procedures Procedure Name Priority Date/Time Associated Diagnosis Comments AMMONIA STAT 06/29/2017 12:47 AM LOADING CHECKER DISCHARGE LABORATORY CUMULATIVE REPORT 06/29/2017 12:00 AM LOADING CHECKER ECG 12-LEAD STAT 06/28/2017 11:59 PM LOADING CHECKER Procedure Note - Ignacio Sue MD - [...] further workup needed Ignacio Sue MD 06/28/17 3459 XR CHEST 1 VIEW ED 06/28/2017 11:05 PM LOADING CHECKER INFLUENZA A/B ANTIGENS, RAPID GEN LAB STAT 06/28/2017 10:52 PM LOADING CHECKER URINALYSIS AND REFLEX TO MICROSCOPIC AND CULTURE Routine 06/28/2017 10:52 PM LOADING CHECKER LACTATE, WHOLE BLOOD Routine 06/28/2017 10:36 PM LOADING CHECKER BLOOD CULTURE STAT 06/28/2017 10:[address] HEAD WO CONTRAST ED 06/28/2017 10:31 PM LOADING CHECKER EGFR STAT 06/28/2017 10:22 PM LOADING CHECKER DIFFERENTIAL AUTO STAT 06/28/2017 10:22 PM LOADING CHECKER CBC WITH AUTO DIFFERENTIAL STAT 06/28/2017 10:22 PM LOADING CHECKER BLOOD CULTURE STAT 06/28/2017 10:22 PM LOADING CHECKER APTT STAT 06/28/2017 10:22 PM LOADING CHECKER PROTIME-INR STAT 06/28/2017 10:22 PM LOADING CHECKER TROPONIN T STAT 06/28/2017 10:22 PM LOADING CHECKER COMPREHENSIVE METABOLIC PANEL STAT 06/28/2017 10:22 PM LOADING CHECKER GLUCOSE POC Routine 06/28/2017 10:16 PM LOADING CHECKER documented in this encounter Results * Ammonia (06/29/2017 12:47 AM LOADING CHECKER) Ammonia 30 10 - 60 mcmol/L [facility] ([place]) Blood specimen (specimen) 06/29/2017 12:47 AM LOADING CHECKER 06/29/2017 12:52 AM LOADING CHECKER Narrative [facility] ([place]) - 06/29/2017 1:25 AM LOADING CHECKER us Ignacio Sue MD LAB BLOOD ORDERABLES Final Result [facility] ([place]) 1 [facility] Department [place] [address] * DISCHARGE LABORATORY CUMULATIVE REPORT (06/29/2017 12:00 AM LOADING CHECKER) Narrative 06/29/2017 12:00 AM LOADING CHECKER Ordered by an unspecified provider. us Historical Provider LAB BLOOD ORDERABLES Cecilia l Result * XR Chest 1 Vw (06/28/2017 11:05 PM LOADING CHECKER) Anatomical Region Laterality Modality Body, Chest N/A Computed Radiogr aphy Impressions 06/29/2017 7:23 AM LOADING CHECKER 1. ??MILD PULMONARY VASCULAR CONGESTION SUPERIMPOSED UPON PULMONARY EMPHYSEMA. message has been communicated to the ED via the [employer] system. The final radiology report findings are discrepant from the preliminary report findings. Electronically signed by: Saravanan Tate M.D. Narrative 06/29/2017 7:23 AM LOADING CHECKER XR CHEST 1 VIEW HISTORY: Weakness. ??Altered [...] been communicated to the ED via the [employer] tracking system. The final radiology report findings are discrepant from the preliminary report findings. Electronically signed by: Saravanan Tate M.D. Ignacio Sue MD IMG XR PROCEDURES Final Re sult * Influenza A/B antigens, rapid (06/28/2017 10:52 PM LOADING CHECKER) Flu A Negative Negative [facility] ([place]) Comment: Interpretive Data The results of this procedure whether positive or negative are presumptive. Current interpretive data was last revised on 2014. Flu B Negative Negative [facility] ([place]) Nasopharyngeal 06/28/2017 10 :52 PM LOADING CHECKER 06/28/2017 10:57 PM LOADING CHECKER Narrative [facility] ([place]) - 06/28/2017 11:12 PM LOADING CHECKER Ignacio Sue MD LAB BODY FLUIDS AND STOOLS ORDERABLES Final Result [facility] ([place]) 1 [facility] [place] [address] * Urinalysis reflex to microscopic and culture (06/28/2017 10:52 PM LOADING CHECKER) Color, ur Yellow Yellow [facility] ([place]) [...] [facility] ([place]) Urine 06/28/2017 10:5 2 PM LOADING CHECKER 06/28/2017 10:58 PM LOADING CHECKER Narrative [facility] ([place]) - 06/28/2017 11:03 PM LOADING CHECKER Ignacio Sue MD LAB MICROBIOLOGY - GENERAL ORDERABLES Final Result [facility] ([place]) 1 [facility] Department [place] [address] * Blood culture Blood (06/28/2017 10:36 PM LOADING CHECKER) Report Final Report: No growth [facility] ([place]) Comment:Testing performed by : [facility], [place]., [address] Blood specimen (specimen) 06/28/2017 10:36 PM LOADING CHECKER 06/29/2017 2:34 AM LOADING CHECKER Narrative [facility] ([place]) - 07/03/2017 7:00 AM LOADING CHECKER 1. Blood cultures are incubated for 5 [...] susceptibly testing, if reported, [place] [address] 5. For blood cultures with gram-positive cocci, a rapid molecular test for organism identification may be performed using the [employer] Nanosphere Gram Positive Blood Culture Assay. The Nanosphere assay detects microbial DNA in positive blood culture broth via hybridization of target DNA to capture oligonucleotides on a microarray. This assay has been cleared by the [place] Food and Drug Administration and its performance characteristics have been verified by the [facility]. Interpretive data was last revised on October 06, 2016. Ignacio Sue MD LAB MICROBIOLOGY - GENERAL ORDERABLES Final Result [facility] ([place]) 1 [facility] [employer] [place] [address] * Lactate, whole blood (06/28/2017 10:36 PM LOADING CHECKER) Lactate, bld 1.4 0.5 - 2.2 mmol/L [facility] ([place]) Blood specimen (specimen) 06/28/2017 10:36 PM LOADING CHECKER 06/28/2017 10:38 PM LOADING CHECKER Narrative [facility] ([place]) - 06/28/2017 10:59 PM LOADING CHECKER Ignacio Sue MD LAB BLOOD ORDERABLES Final Result [facility] ([place]) 1 [facility] [place] [address] * CT Head WO Contrast (06/28/2017 10:31 PM LOADING CHECKER) Anatomical Region Laterality Modality Head and Neck N/A Computed Tomogra phy Impressions 06/29/2017 7:07 AM LOADING CHECKER 1. ??NO ACUTE INTRACRANIAL HEMORRHAGE. 2. ??MILD CORTICAL ATROPHY. 3. FOCAL AREAS OF DECREASED ATTENUATION IN LEFT FRONTAL LOBE WHITE MATTER LIKELY SECONDARY TO SMALL VESSEL MICROVASCULAR ISCHEMIC DISEASE. Electronically signed by: Saravanan Tate M.D. Narrative 06/29/2017 7:07 AM LOADING CHECKER PROCEDURE: CT HEAD WO CONTRAST HISTORY: Fever. [...] Re sult * eGFR (06/28/2017 10:22 PM LOADING CHECKER) [facility] eGFR >60 mL/min/1.7 3 m2 [facility] ([place]) Comment: Interpretive Data Reference Interval Normal ?>/= 90 mL/min/1.73m2 Mildly decreased* ? 60 - 89 mL/min/1.73m2 Mildly to moderately decreased ?45 - 59 mL/min/1.73m2 Moderately to severely decreased ??30 - 44 mL/min/1.73m2 Severely decreased ?15 - 29 mL/min/1.73m2 Kidney Failure ?< 15 ??mL/min/1.73m2 *Relative to young adult level If -Jamaican multiply value by 1.16. Estimated glomerular filtration [...] 2015. Blood specimen (specimen) 06/28/2017 10:22 PM LOADING CHECKER 06/28/2017 10:28 PM LOADING CHECKER Narrative [facility] ([place]) - 06/28/2017 10:50 PM LOADING CHECKER us Ignacio Sue MD LAB BLOOD ORDERABLES Final Result [facility] ([place]) 1 [facility] Department [place] [address] * (ABNORMAL) Differential, auto (06/28/2017 10:22 PM LOADING CHECKER) Neutrophil pct 71.6 44.0 - 80.0 % [...] ([place]) Blood specimen (specimen) 06/28/2017 10:22 PM LOADING CHECKER 06/28/2017 10:28 PM LOADING CHECKER Narrative [facility] ([place]) - 06/28/2017 10:31 PM LOADING CHECKER us Ignacio Sue MD LAB BLOOD ORDERABLES Final Result [facility] ([place]) 1 [facility] Department [place] [address] * Troponin T (06/28/2017 10:22 PM LOADING CHECKER) Troponin T <0.01 0.00 - 0.06 ng/mL [facility] ([place]) Comment: Interpretive Data Troponin table: ? Negative ? 0.00-0.06 ng/ml ? Indeterminate ?0.07-0.10 ng/ml ? Consistent with Myocardial Injury ?Greater than 0.10 ng/ml ?? Current interpretive data was last revised on 2014 Blood specimen (specimen) 06/28/2017 10:22 PM LOADING CHECKER 06/28/2017 10:28 PM LOADING CHECKER Narrative [facility] [place]) - 06/28/2017 10:50 PM LOADING CHECKER Ignacio Sue MD LAB BLOOD ORDERABLES Final Result Performing Organization Address City/[facility]/ZIP Co de Phone Number [facility] [place]) 1 [facility] [place] [address] * (ABNORMAL) Protime-INR (06/28/2017 10:22 PM LOADING CHECKER) PT 14.3(H) 9.5 - 13.0 sec [facility] ([place]) INR 1.26(H) 0.90 - 1.20 [...] 2015. Blood specimen (specimen) 06/28/2017 10:22 PM LOADING CHECKER 06/28/2017 10:28 PM LOADING CHECKER Narrative [facility] ([place]) - 06/28/2017 10:58 PM LOADING CHECKER Ignacio Sue MD LAB BLOOD ORDERABLES Final Result [facility] ([place]) 1 [facility] [place] [address] * aPTT (06/28/2017 10:22 PM LOADING CHECKER) aPTT 30.8 25.0 - 37.0 sec [facility] ([place]) Blood specimen (specimen) 06/28/2017 10:22 PM LOADING CHECKER 06/28/2017 10:28 PM LOADING CHECKER Narrative [facility] ([place]) - 06/28/2017 10:58 PM LOADING CHECKER us Ignacio Sue MD LAB BLOOD ORDERABLES Final Result [facility] ([place]) 1 [facility] Department [place] [address] * (ABNORMAL) Comprehensive metabolic panel (06/28/2017 10:22 PM LOADING CHECKER) Sodium 137 135 - 145 mmol/L [facility] [...] ([place]) Blood specimen (specimen) 06/28/2017 10:22 PM LOADING CHECKER 06/28/2017 10:28 PM LOADING CHECKER Narrative [facility] ([place]) - 06/28/2017 10:50 PM LOADING CHECKER Ignacio Sue MD LAB BLOOD ORDERABLES Final Result [facility] ([place]) 1 [facility] Department [place] [address] * (ABNORMAL) CBC with auto differential (06/28/2017 10:22 PM LOADING CHECKER) WBC 5.0 3.8 - 9.9 K/cumm [facility] [...] ([place]) Blood specimen (specimen) 06/28/2017 10:22 PM LOADING CHECKER 06/28/2017 10:28 PM LOADING CHECKER Narrative [facility] ([place]) - 06/28/2017 10:31 PM LOADING CHECKER us Ignacio Sue MD LAB BLOOD ORDERABLES Final Result [facility] [place]) 1 [facility] Department [place] [address] * Blood culture Blood (06/28/2017 10:22 PM LOADING CHECKER) Report Final Report: No growth [facility] [place]) Comment:Testing performed by : [facility], [place]., [address] Blood specimen (specimen) 06/28/2017 10:22 PM LOADING CHECKER 06/29/2017 2:34 AM LOADING CHECKER Narrative [facility] [place]) - 07/03/2017 7:00 AM LOADING CHECKER 1. Blood cultures are incubated for 5 [...] susceptibly testing, if reported, [place] [address] 5. For blood cultures with gram-positive cocci, a rapid molecular test for organism identification may be performed using the [employer] Nanosphere Gram Positive Blood Culture Assay. The Nanosphere assay detects microbial DNA in positive blood culture broth via hybridization of target DNA to capture oligonucleotides on a microarray. This assay has been cleared by the [place] Food and Drug Administration and its performance characteristics have been verified by the [facility]. Interpretive data was last revised on October 06, 2016. us Ignacio Sue MD LAB MICROBIOLOGY - GENERAL ORDERABLES Final Result [facility] [place]) 1 [facility] [place] [address] * Glucose POC (06/28/2017 10:16 PM LOADING CHECKER) [facility] Signature Glucose, POC 89 71 - 98 mg/dL [facility] ([place]) Blood specimen (specimen) 06/28/2017 10:16 PM LOADING CHECKER 06/28/2017 10:16 PM LOADING CHECKER Narrative [facility] ([place]) - 06/28/2017 10:21 PM LOADING CHECKER us Notinfile Unknown POINT OF CARE TEST ORDERABLES Final Result Performing Organization Address [facility] Co de Phone Number [facility] ([place]) 1 [facility] [place] [address] documented in this encounter Visit Diagnoses Diagnosis [...] For 1 dose Given 06/28/2017 10:48 PM LOADING CHECKER 600 mg sodium chloride 0.9% bolus 1,000 mL 1,000 mL, intravenous, Once, On 06/28/17 at 2230, For 1 dose New Bag 06/28/2017 10:47 PM LOADING CHECKER 1,000 mL documented in this encounter Active and Recently Administered Medications Times are shown in LOADING CHECKER. Scheduled Medication Order 06/27/2017 06/28/2017 06/29/2017 ibuprofen [...] 06/28/2017 documented in this encounter Care Teams Recruit Instructor Relationship Specialty Start Date End Date Geovanni Saunders NP [address] [place] [address] [address] [address] PCP - General 01/02/17 04/28/18 documented as of this encounter
--- OUTSIDE RECORDS SUMMARY | 2024-05-31 23:54 | XMS_ITS | Encounter Summary ---
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
--- OUTSIDE RECORDS SUMMARY | 2024-05-31 23:54 | XMS_ITS | Encounter Summary ---
Author Organization [facility] Healthcare Address [address] [place] [address] Care Team Providers Care Display Specialist Name Role Phone Geovanni Saunders SHEETMETAL TRADES WORKER Primary Care Provider + Encounter Details Date Type Department Care Team (Latest Contact Info) Description 01/07/2017 7:14 AM CDT - 01/07/2017 11:59 PM CDT Hospital Encounter [facility] OP INTERIM Niesha, Kendall Carlson MD [address] [place] [id number] Discharge Disposition: Discharge to home or self care Social History Tobacco Use Types Packs/Day Years Used Date Smoking Tobacco: Never Assessed Sex and Gender Information Value Date Recorded Sex Assigned at Not on file 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 [address]58[address] ??Acc#: ??[id number] DATE OF EXAM: ??Jan 07 2017 ?? EXAM: CT Abd/Pel W/WO ? [address] HISTORY: Hematuria COMPARISON: None TECHNIQUE: Following administration [...] ??KENDALL SCHERER Requesting: ??KENDALL SCHERER Requesting Fax: ??[phone] Attending Fax: ??[phone] Attending ID: ??[id number] Requesting ID: ??[id number] Report To 1 ID: ??[id number] Report To 1 Name: ??KENDALL SCHERER Report To 1 FAX: ??[phone] NextGen Order #: ?? Procedure Note Miscellaneous, Not In File / Provider, MD Edmund - 01/13/2017 CT Abd/Pel W/WO [id number] Acc#: [id number] DATE OF EXAM: Jan 07 2017 EXAM: CT Abd/Pel W/WO [address] HISTORY: Hematuria COMPARISON: None TECHNIQUE: Following administration [...] on: Jan 07 2017 11:29A Transcribed by: [facility] On: Jan 07 2017 11:27A Approved Electronically by: WESTLEY MORALES M.D. on: Jan 07 2017 11:27A Ordering DR: KENDALL SCHERER Attending DR: KENDALL SCHERER Attending: KENDALL SCHERER Requesting: KENDALL SCHERER Requesting Attending Attending ID: [id number] Requesting ID: [id number] Report To 1 ID: [id number] Report To 1 Name: KENDALL SCHERER Report To 1 FAX: [phone] NextGen Order #: Kendall Scherer MD IMG CT PROCEDURES Final Re sult * Creatinine, whole blood (01/07/2017 7:18 AM CDT) Creatinine, bld 1.11 0.60 - 1.30 mg/dL [facility] ([place]) Blood specimen (specimen) 01/07/2017 7:18 AM CDT 01/07/2017 7:25 AM CDT Kendall Scherer MD LAB BLOOD ORDERABLES Final Result [facility] ([place]) 1 [facility] Department [place] [address] documented in this encounter Visit Diagnoses Not on filedocumented in this encounter Care Teams Display Specialist Relationship Specialty Start Date End Date Geovanni Saunders NP [address] [place] [address] PCP - General 01/02/17 04/28/18 documented as of this encounter
--- OUTSIDE RECORDS SUMMARY | 2024-05-31 23:54 | XMS_ITS | Encounter Summary ---
Author Organization [facility] Healthcare Address [address] [place] [address] Care Team Providers Care Commodity Specialist Name Role Phone Unavailable Primary Care Provider Unavailabl e Encounter Details Date Type Department Care Team (Late st Contact Info) Description 03/25/2016 11:29 AM CDT - 03/25/2016 11:59 PM CDT Hospital Encounter [facility] Joe Melton MD [address] [place] [address] Talia Bergeron, INSIDE BARREL LATHE OPERATOR [address] [place] [address] Lobar pneumonia (CMS/HCC) Social History Tobacco Use Types Packs/Day Years Used Date Smoking Tobacco: Never Assessed Sex and Gender Information Value Date Recorded Sex Assigned at Not on file 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 Gender Identity Not on file Sexual Orientation [...] AM CDT TD XR Chest 2 Views ?21238 ??Acc#: ??[id number] DATE OF EXAM: ??Nov ??2015 CLINICAL HISTORY: [...] NP Requesting: ??TALIA BERGERON NP Requesting Fax: ??[phone] Attending Fax: ??[phone] Attending ID: ??[id number] Requesting ID: ??[id number] Report To 1 ID: ??[id number] Report To 1 Name: ??TALIA BERGERON NP Report To 1 FAX: ??[phone] NextGen Order #: Procedure Note Provider, MD Edmund - 10/01/2016 TD XR Chest 2 Views [id number] Acc#: [id number] DATE OF EXAM: Mar 25 2016 CLINICAL [...] TALIA BERGERON NP Requesting Attending Attending ID: [id number] Requesting ID: [id number] Report To 1 ID: [id number] Report To 1 Name: TALIA BERGERON NP Report To 1 FAX: [phone] NextGen Order #: us Historical Provider MD AVILA XR PROCEDURES Final R esult documented in this encounter Visit Diagnoses Diagnosis Lobar pneumonia (CMS/HCC) (HCC) Pneumococcal pneumonia (streptococcus pneumoniae pneumonia) documented in this encounter
--- OUTSIDE RECORDS SUMMARY | 2024-05-31 23:54 | XMS_ITS | Encounter Summary ---
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 The Endoscope GIF-H190 [id number] was introduced through the mouth, and advanced [...] 9:43 AM Procedure Code(s): --- Professional --- 14179, Esophagogastroduodenoscopy, flexible, transoral; with biopsy, single or multiple Diagnosis Code(s): --- Professional --- K31.89, Other diseases of stomach and duodenum K22.8, Other specified diseases of esophagus R63.4, Abnormal weight loss R19.7, Diarrhea, unspecified CPT copyright 2017 [employer]. All rights reserved. The codes documented in this report are preliminary and upon remote coders review may be revised to meet current compliance requirements. Recognized by the [employer] for promoting quality in endoscopy * Dewayne Alaniz MD - 11/24/2017 9:42 AM CDTAssociated Order(s): COLONOSCOPY [facility] Patient Name: Christal Lanza Procedure Date: 11/24/2017 9:42 AM Date of : 1955 Admit Type: Outpatient Age: 62 Gender: Male Attending MD: Dewayne Alaniz MD Room: [facility] ENDOSCOPY CAPSULE Note Status: Finalized [...] under direct vision. The Pediatric Colonoscope PCF-H190L [id number] was introduced through the anus and advanced [...] 9:42 AM Procedure Code(s): --- Professional --- 66593, Colonoscopy, flexible; with biopsy, single or multiple Diagnosis Code(s): --- Professional --- K64.8, Other hemorrhoids R63.4, Abnormal weight loss R19.7, Diarrhea, unspecified CPT copyright 2017 [employer]. All rights reserved. The codes documented in this report are preliminary and upon remote coders review may be revised to meet current compliance requirements. Recognized by the [employer] for promoting quality [...] results best viewed via link to PDF [facility] Department of Pathology [address] [place] [address] Final Report Patient Name: ??CHRISTAL LANZA Address: ??[address] [place] [address], ??[place], [place] [address] Gender: ??M : ??1955 (Age: 62) Service: ??Gastro Location: [facility] #: ??[id number] Patient Type: ??[facility] SDS Accession # [id number] Taken: ??11/24/2017 Received: ??11/24/2017 Accessioned: ??11/24/2017 Reported: [...] determined by the Surgical Pathology Department at [facility] as part of an ongoing compliance quality performance analyst program and in compliance with federally mandated [...] characteristics determined by the Surgical Pathology Department [facility]. ??It has not been cleared or approved [...] ORDERABLES Final Result [facility]ERRERO ([place]) [facility] Department [place] [address] * EGD (11/24/2017 9:43 AM CDT) Anatomical Region Laterality Modality Other Narrative Procedure Note Dewayne Alaniz MD - 11/24/2017 9:43 AM CDT [facility] Patient Name: Christal Lanza Procedure Date: 11/24/2017 9:43 AM Date of : 1955 Admit Type: Outpatient Age: 62 Gender: Male Attending MD: Dewayne Alaniz MD Room: [facility] ENDOSCOPY CAPSULE Note Status: Finalized [...] was passed under direct vision.The Endoscope GIF-H190 [id number] was introduced throughthe mouth, and advanced to [...] 9:43 AM Procedure Code(s): --- Professional --- 42796, Esophagogastroduodenoscopy, flexible, transoral; with biopsy, single or multiple Diagnosis Code(s): --- Professional --- K31.89, Other diseases of stomach and duodenum K22.8, Other specified diseases of esophagus R63.4, Abnormal weight loss R19.7, Diarrhea, unspecified CPT copyright 2017 [employer]. All rights reserved. The codes documented in this report are preliminary and upon remote coders reviewmay be revised to meet current compliance requirements. Recognized by the [employer] for promoting quality in endoscopy us Dewayne Alaniz MD ENDOSCOPY PROCEDURES Final Result * COLONOSCOPY (11/24/2017 9:42 AM CDT) Anatomical Region Laterality Modality Other Narrative Procedure Note Dewayne Alaniz MD - 11/24/2017 9:[address] [facility] Patient Name: Christal Lanza Procedure Date: 11/24/2017 9:42 AM Date of : 1955 Admit Type: Outpatient Age: 62 Gender: Male Attending MD: Dewayne Alaniz MD Room: [facility] ENDOSCOPY CAPSULE Note Status: Finalized Patient Profile: 62 WM with unexplained weight loss, and abnormal stool/diarrhea, no family h/o colon cancer. Procedure: Colonoscopy Indications: Last colonoscopy: November 2008, Clinically significant diarrhea of unexplained origin, Weight loss Referring MD: Geovanni Saunders [place] ATTENDANT Providers: Dewayne Alaniz MD Impression: - The entire examined colon is normal. Biopsied. - Internal hemorrhoids. Recommendation: - Await pathology results. - Return to my office at appointment to [facility]. - Will need CT abdomen and pelvis [...] passed under direct vision.The Pediatric Colonoscope PCF-H190L [id number] was introduced through the anus and advanced [...] 9:42 AM Procedure Code(s): --- Professional --- 65688, Colonoscopy, flexible; with biopsy, single or multiple Diagnosis Code(s): --- Professional --- K64.8, Other hemorrhoids R63.4, Abnormal weight loss R19.7, Diarrhea, unspecified CPT copyright 2017 [employer]. All rights reserved. The codes documented in this report are preliminary and upon remote coders reviewmay be revised to meet current compliance requirements. Recognized by the [employer] for promoting quality [...] 11/24/2017 documented in this encounter Care Teams Charge Hand Relationship Specialty Start Date End Date Geovanni Saunders NP [address] [place] [address] [address] [place] [address] PCP - General 01/02/17 04/28/18 documented as of this encounter
--- OUTSIDE RECORDS SUMMARY | 2024-05-31 23:54 | XMS_ITS | Encounter Summary ---
Author Organization [facility] Address [address] [place] [address] Care Team Providers Care Fire Loss Prevention Engineer Name Role Phone Geovanni Saunders NP Primary Care Provider + Reason for Visit * Reason Comments Fracture pelvis fracture foll ow up Follow-up Fracture Encounter Details Date Type Department Care Team (Late st Contact Info) Description 07/21/2017 1:45 PM 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 MANAGER Office Visit [facility] Orthopedics and Sports Medicine [address] [facility] [address] [place] [id number] Patricio Grimm MD [address] [facility] [address] [place], [place] [id number] Orthopedic aftercare (Primary Dx); Closed fracture of [...] on file Legal Sex Male 11:14 AM 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 Gender Identity Not on file Sexual Orientation Not on file documented as of this encounter Last Filed Vital Signs Vital Sign Reading Time Taken Comments Blood Pressure 108/68 07/21/2017 11:15 AM 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 MANAGER Pulse 81 07/21/2017 11:15 AM 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 MANAGER Temperature - - Respiratory Rate - - Oxygen Saturation - - Inhaled Oxygen Concentration - - Weight 76.7 kg (169 lb) 07/21/2017 11:15 AM 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 MANAGER Height 177.8 cm (5' 10 ) 07/21/2017 11:15 AM 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 MANAGER Body Mass Index 24.25 07/21/2017 11:15 AM 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 MANAGER documented in this encounter Progress Notes * [...] healing at that time. Patricio Grimm MD STICS ANALYTICS MANAGER documented in this encounter Plan of Treatment Not on file documented as of this encounter Procedures Procedure Name Priority Date/Time Associated Diagnosis Comments XR PELVIS 1 OR 2 VIEWS Schedule Routine, Read Routine (OP Routine) 07/21/2017 11:10 AM 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 MANAGER Orthopedic aftercare documented in this encounter Results * XR Pelvis 1 or 2 Views (07/21/2017 11:10 AM 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 MANAGER) Anatomical Region Laterality Modality Body, Pelvis N/A Digital Radiogra phy Narrative 07/22/2017 5:05 PM 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 MANAGER No further displacement of rami fractures noted. [...] 11/24/2017 added in this encounter Care Teams Fire Loss Prevention Engineer Relationship Specialty Start Date End Date Geovanni Saunders NP [address] [place] [address] [address] [place] [address] PCP - General 01/02/17 04/28/18 documented as of this encounter
--- OUTSIDE RECORDS SUMMARY | 2024-05-31 23:54 | XMS_ITS | Encounter Summary ---
Author Organization [facility] Address [address] [place] [address] Care Team Providers Care Pipelines Laborer Name Role Phone Miscellaneous, Not In File Primary Care Provider Unavailable Reason for Visit * Reason Comments Shortness of Breath Encounter Details Date Type Department Care Team (Latest Contact Info) Description 01/09/2020 1:57 PM CDT - 01/17/2020 2:31 PM CDT Hospital Encounter [facility] [address] [place] [address] Humble Chester MD [address] [place] [address] [place] [address] Beth Kaba MD [address] [place] [address] Patricio Vieira Jr., MD [address] [place] [address] Abisai Alejandre MD [address] [address] Steven Reinoso MD [address] [place] [address] Pneumonia (Primary Dx) Discharge Disposition: Discharge to [...] on file 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 A commercial sales representative precarinal lymph node measures 2.0 x 1.3 cm (axial image35 of 92). A commercial sales representative subcarinal lymph node measures 3.0 x [...] 1 tablet (75 mcg total) by mouth electrician master before breakfast CONTINUE taking these medications Instructions [...] medications [facility] sent to [facility] [place], [place] - [id number], [facility] [id number] ?? levothyroxine 75 mcg tablet ?? predniSONE [...] Vieira Jr., MD Internal Medicine - Hospitalist [facility] - Adult Hospitalist Service 01/17/2020 11:51 AM Cc: Not In Miscellaneous documented in this encounter Discharge Instructions * Discharge Instr - Other Orders* Manjula Carlton, KURTIS - 01/17/2020 1:40 PM CDT If you have any questions or concerns following discharge, please call [facility] at [phone]. * Attachments The following attachments cannot be sent through Care Everywhere. 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 Interventions: [place] diet preferences within the limits of nutrition [...] Jr., MD - 01/16/2020 6:05 PM CDT [facility] Hospitalist Service Progress Note Patient Name: Saravanan Lanza Patient : 1955 Age/Sex: 64 y.o. male Room/Bed: [id number] Admission Date/Time: 01/09/2020 1:57 PM Date: 01/16/2020 [...] There are enlarged mediastinal lymph nodes. A commercial sales representative precarinal lymph node measures 2.0 x 1.3 cm (axial image35 of 92). A commercial sales representative subcarinal lymph node measures 3.0 x [...] Vieira Jr., MD Internal Medicine - Hospitalist [facility] - Adult Hospitalist Service 01/16/2020 6:05 PM * Patricio Vieira Jr., MD - 01/15/2020 1:00 PM CDT [facility] Hospitalist Service Progress Note Patient Name: Saravanan Lanza Patient : 1955 Age/Sex: 64 y.o. male Room/Bed: [id number] Admission Date/Time: 01/09/2020 1:57 PM Date: 01/15/2020 [...] There are enlarged mediastinal lymph nodes. A commercial sales representative precarinal lymph node measures 2.0 x 1.3 cm (axial image35 of 92). A commercial sales representative subcarinal lymph node measures 3.0 x [...] Vieira Jr., MD Internal Medicine - Hospitalist [facility] - Adult Hospitalist Service 01/15/2020 1:00 PM * Patricio iVeira Jr., MD - 01/14/2020 5:26 PM CDT [facility] Hospitalist Service Progress Note Patient Name: Saravanan Lanza Patient : 1955 Age/Sex: 64 y.o. male Room/Bed: [id number] Admission Date/Time: 01/09/2020 1:57 PM Date: 01/14/2020 [...] There are enlarged mediastinal lymph nodes. A commercial sales representative precarinal lymph node measures 2.0 x 1.3 cm (axial image35 of 92). A commercial sales representative subcarinal lymph node measures 3.0 x [...] Vieira Jr., MD Internal Medicine - Hospitalist [facility] - Adult Hospitalist Service 01/14/2020 5:26 PM [...] liver without ascites (CMS/HCC) Voice recognition software [employer] People Direct was used dictate and transcribe this document. Line Walker variances may occur. Despite proofreading, typographical errors may occur. Steven Reinoso MD [facility] - Adult Hospitalist Service * Danica Leonard [facility] - 01/13/2020 10:51 AM CDT Antimicrobial Stewardship [...] daily per protocol. Thank you, Danica Leonard [facility] department [phone] * Steven Reinoso MD - 01/12/2020 5:35 [...] liver without ascites (CMS/HCC) Voice recognition software [employer] People Direct was used dictate and transcribe this document. Line Walker variances may occur. Despite proofreading, typographical errors may occur. Steven Reinoso MD [facility] - Adult Hospitalist Service * Ella Mckenzie, [...] illness/injury Evidenced by: Physical finding ?? Interventions: [place] diet preferences within the limits of nutrition [...] liver without ascites (CMS/HCC) Voice recognition software [employer] People Direct was used dictate and transcribe this document. Line Walker variances may occur. Despite proofreading, typographical errors may occur. Abisai Alejandre MD [facility] - Adult Hospitalist Service * Christophe Aragon [...] liver without ascites (CMS/HCC) Voice recognition software [employer] People Direct was used dictate and transcribe this document. Line Walker variances may occur. Despite proofreading, typographical errors may occur. Abisai Alejandre MD [facility] - Adult Hospitalist Service documented in this [...] methadone use cannot be verified on [place] TUNNEL INSPECTOR review since only klonopin prescription was listed. Discussed with nurse to call [facility] Complete med rec once verified Sc lovenox for vte prophylaxis Full code Beth Kaba MD Date of Service: 01/09/2020 documented in this encounter Nursing Notes * Apoorva Adamson, RN - 01/17/2020 2:31 PM CDT Patient was taken to private automobile by [facility]. No personal items left in room. documented [...] tendency for uric acid stone formation. Source: [facility].Last revised 06-04-2017 COMPREHENSIVE METABOLIC PANEL - Abnormal [...] PM CDT Pt to the ED via [facility] with complaints of SOB and diarhhea for the last couple days, pt was supposed to get his methadone today but states he was too weak to go. * Christina Shelley RN - 01/09/2020 1:57 PM CDT Bed: ED09 Expected date: 01/09/20 Expected time: Means of arrival: Comments: [facility] Christina Shelley RN 01/09/20 1357 documented in [...] the patient???s medical record. Sincerely, Lamar Aceves [facility] Information Management * Plan of Care [...] was able to ambulate from room to [facility] station and back with out need for [...] 01/09/2020 10:13 PM CDT BLOOD MISC TO [place] Routine 01/09/2020 7: 53 PM CDT PROCALCITONIN [...] * POCT glucose (01/16/2020 8:10 AM CDT) [facility] Glucose, POC 86 71 - 98 mg/dL [facility] ([place]) Blood specimen (specimen) 01/16/2020 8:10 AM CDT 01/16/2020 8:10 AM CDT us Patricio Vieira Jr., MD LAB POCT ORDERABLES - DEVICE Final Result [facility] ([place]) 1 [facility] Department [place] [address] * (ABNORMAL) Manual Differential (01/16/2020 5:13 AM [...] Final Resul t [facility] ([place]) 1 [facility] Department [place] [address] * eGFR (01/16/2020 5:13 AM CDT) eGFR 100 mL/min/1.7 3 m2 [facility] ([place]) Comment: Interpretive Data Reference Interval Normal ?>/= 90 mL/min/1.73m2 Mildly decreased* ? 60 - 89 mL/min/1.73m2 Mildly to moderately decreased ?45 - 59 mL/min/1.73m2 Moderately to severely decreased ??30 - 44 mL/min/1.73m2 Severely decreased ?15 - 29 mL/min/1.73m2 Kidney Failure ?< 15 ??mL/min/1.73m2 *Relative to young adult level If -Croatian multiply value by 1.16. Estimated glomerular filtration [...] MD LAB BLOOD ORDERABLES Final Resul t [facility] ([place]) 1 [facility] Department [place] [address] * (ABNORMAL) Basic metabolic panel (01/16/2020 5:13 AM CDT) Sodium 138 135 - 145 mmol/L [facility] ([place]) Potassium, pl 3.4 3.3 - 4.9 mmol/L [facility] ([place]) Chloride 101 97 - 110 mmol/L [facility] ([place]) CO2 26 22 - 32 mmol/L [facility] ([place]) Anion gap 11 2 - 15 mmol/L [facility] ([place]) BUN 12 8 - 25 mg/dL [facility] ([place]) Creatinine 0.69(L) 0.80 - 1.30 [...] Final Resul t [facility] ([place]) 1 [facility] Department [place] [address] * (ABNORMAL) CBC with auto differential (01/16/2020 5:13 AM CDT) WBC 8.2 3.8 - 9.9 K/cumm [facility] ([place]) Hgb 11.9(L) 13.0 - 17.5 g/dL [facility] ([place]) Hct 36.0(L) 38.9 - 50.3 % [facility] [...] Final Resul t [facility] ([place]) 1 [facility] [place] [address] * (ABNORMAL) POCT glucose (01/15/2020 7:20 AM CDT) Glucose, POC 111(H) 71 - 98 mg/dL [facility] ([place]) Blood specimen (specimen) 01/15/2020 7:20 AM CDT 01/15/2020 7:20 AM CDT us Patricio Vieira Jr., MD LAB POCT ORDERABLES - DEVICE Final Result Performing Organization Address City/[facility]/ZIP Co de Phone Number [facility] ([place]) 1 [facility] [place] [address] * (ABNORMAL) Manual Differential (01/15/2020 5:06 AM [...] 2017. Monocyte pct 9.0 % [facility] ([place]) Comment: Interpretive Data Percent cell count reference ranges are not reported, since discordance with absolute values may lead to misinterpretation of CBC data. Current Interpretive Data was last revised on 2017. Eosinophil pct 1.0 % [facility] ([place]) Comment: Interpretive [...] Final Resul t [facility] ([place]) 1 [facility] Department [place] [address] * eGFR (01/15/2020 5:06 AM CDT) eGFR 94 mL/min/1.7 3 m2 [facility] ([place]) Comment: Interpretive Data Reference Interval Normal ?>/= 90 mL/min/1.73m2 Mildly decreased* ? 60 - 89 mL/min/1.73m2 Mildly to moderately decreased ?45 - 59 mL/min/1.73m2 Moderately to severely decreased ??30 - 44 mL/min/1.73m2 Severely decreased ?15 - 29 mL/min/1.73m2 Kidney Failure ?< 15 ??mL/min/1.73m2 *Relative to young adult level If -Croatian multiply value by 1.16. Estimated glomerular filtration [...] Final Resul t [facility] ([place]) 1 [facility] Department [place] [address] * (ABNORMAL) Basic metabolic panel (01/15/2020 5:06 AM CDT) Sodium 139 135 - 145 mmol/L [facility] ([place]) Potassium, pl 3.2(L) 3.3 - 4.9 mmol/L [facility] ([place]) Chloride 100 97 - 110 mmol/L [facility] ([place]) CO2 28 22 - 32 mmol/L [facility] ([place]) Anion gap 12 2 - 15 mmol/L [facility] ([place]) BUN 14 8 - 25 mg/dL [facility] [...] 2017. Calcium 9.0 8.5 - 10.3 mg/dL [facility] ([place]) Blood specimen (specimen) 01/15/2020 5:06 AM CDT 01/15/2020 6:09 AM CDT us Abisai Alejandre MD LAB BLOOD ORDERABLES Final Resul t [facility] ([place]) 1 [facility] Department [place] [address] * (ABNORMAL) CBC with auto differential (01/15/2020 [...] Final Resul t [facility] ([place]) 1 [facility] Department [place] [address] * (ABNORMAL) Manual Differential (01/14/2020 4:45 AM [...] BLOOD ORDERABLES Final Resul t [facility] ([place]) 1 [facility] Department [place] [address] * eGFR (01/14/2020 4:45 AM CDT) eGFR 97 mL/min/1.7 3 m2 [facility] ([place]) Comment: Interpretive Data Reference Interval Normal ?>/= 90 mL/min/1.73m2 Mildly decreased* ? 60 - 89 mL/min/1.73m2 Mildly to moderately decreased ?45 - 59 mL/min/1.73m2 Moderately to severely decreased ??30 - 44 mL/min/1.73m2 Severely decreased ?15 - 29 mL/min/1.73m2 Kidney Failure ?< 15 ??mL/min/1.73m2 *Relative to young adult level If -Croatian multiply value by 1.16. Estimated glomerular filtration [...] MD LAB BLOOD ORDERABLES Final Resul t [facility] ([place]) 1 [facility] Department [place] [address] * (ABNORMAL) Basic metabolic panel (01/14/2020 4:45 AM CDT) Sodium 136 135 - 145 mmol/L [facility] ([place]) Potassium, pl 3.2(L) 3.3 - 4.9 mmol/L [facility] ([place]) Chloride 101 97 - 110 mmol/L [facility] ([place]) CO2 26 22 - 32 mmol/L [facility] ([place]) Anion gap 9 2 - 15 mmol/L [facility] ([place]) BUN 17 8 - 25 mg/dL [facility] ([place]) Creatinine 0.74(L) 0.80 - 1.30 [...] Final Resul t [facility] ([place]) 1 [facility] Department [place] [address] * (ABNORMAL) CBC with auto differential (01/14/2020 [...] 0.00 0.00 - 0.01 K/cumm [facility] ([place]) Blood specimen (specimen) 01/14/2020 4:45 AM CDT 01/14/2020 5:43 AM CDT us Abisai Alejandre MD LAB BLOOD ORDERABLES Final Resul t [facility] ([place]) 1 [facility] Department [place] [address] * XR CHEST 1 VIEW PORTABLE (01/13/2020 [...] Final Resul t [facility] ([place]) 1 [facility] Department [place] [address] * eGFR (01/13/2020 5:10 AM CDT) eGFR 92 mL/min/1.7 3 m2 [facility] ([place]) Comment: Interpretive Data Reference Interval Normal ?>/= 90 mL/min/1.73m2 Mildly decreased* ? 60 - 89 mL/min/1.73m2 Mildly to moderately decreased ?45 - 59 mL/min/1.73m2 Moderately to severely decreased ??30 - 44 mL/min/1.73m2 Severely decreased ?15 - 29 mL/min/1.73m2 Kidney Failure ?< 15 ??mL/min/1.73m2 *Relative to young adult level If -Croatian multiply value by 1.16. Estimated glomerular filtration [...] MD LAB BLOOD ORDERABLES Final Resul t [facility] ([place]) 1 [facility] Department [place] [address] * Basic metabolic panel (01/13/2020 5:10 AM [...] Final Resul t [facility] ([place]) 1 [facility] [place] [address] * (ABNORMAL) CBC with auto differential (01/13/2020 [...] 32.8 32.3 - 35.7 g/dL [facility] ([place]) RDW CV 14.3 11.1 - 14.9 % [facility] ([place]) RDW SD 48.0 35.7 - 48.1 fL [facility] ([place]) NRBC abs 0.00 0.00 - 0.01 K/cumm [facility] ([place]) Blood specimen (specimen) 01/13/2020 5:10 AM CDT 01/13/2020 5:21 AM CDT Abisai Alejandre MD LAB BLOOD ORDERABLES Final Resul t [facility] ([place]) 1 [facility] [place] [address] * (ABNORMAL) Manual Differential (01/12/2020 4:50 AM [...] Final Resul t [facility] ([place]) 1 [facility] Department [place] [address] * eGFR (01/12/2020 4:50 AM CDT) eGFR 90 mL/min/1.7 3 m2 [facility] ([place]) Comment: Interpretive Data Reference Interval Normal ?>/= 90 mL/min/1.73m2 Mildly decreased* ? 60 - 89 mL/min/1.73m2 Mildly to moderately decreased ?45 - 59 mL/min/1.73m2 Moderately to severely decreased ??30 - 44 mL/min/1.73m2 Severely decreased ?15 - 29 mL/min/1.73m2 Kidney Failure ?< 15 ??mL/min/1.73m2 *Relative to young adult level If -Croatian multiply value by 1.16. Estimated glomerular filtration [...] Final Resul t [facility] ([place]) 1 [facility] Department [place] [address] * (ABNORMAL) Basic metabolic panel (01/12/2020 4:50 [...] Final Resul t [facility] ([place]) 1 [facility] Department [place] [address] * (ABNORMAL) CBC with auto differential (01/12/2020 [...] NRBC abs 0.00 0.00 - 0.01 K/cumm [facility] ([place]) Blood specimen (specimen) 01/12/2020 4:50 AM CDT 01/12/2020 5:15 AM CDT us Abisai Alejandre MD LAB BLOOD ORDERABLES Final Resul t [facility] ([place]) 1 [facility] Department [place] [address] * eGFR (01/11/2020 5:26 AM CDT) eGFR 95 mL/min/1.7 3 m2 [facility] ([place]) Comment: Interpretive Data Reference Interval Normal ?>/= 90 mL/min/1.73m2 Mildly decreased* ? 60 - 89 mL/min/1.73m2 Mildly to moderately decreased ?45 - 59 mL/min/1.73m2 Moderately to severely decreased ??30 - 44 mL/min/1.73m2 Severely decreased ?15 - 29 mL/min/1.73m2 Kidney Failure ?< 15 ??mL/min/1.73m2 *Relative to young adult level If -Croatian multiply value by 1.16. Estimated glomerular filtration [...] LAB BLOOD ORDERABLES Final Resul t [facility] ([place]) 1 [facility] Department [place] [address] * (ABNORMAL) Differential, auto (01/11/2020 5:26 AM [...] Neutrophil pct 91.2 % [facility] ([place]) Comment: Interpretive Data Percent cell count reference [...] MD LAB BLOOD ORDERABLES Final Resul t [facility] ([place]) 1 [facility] Department [place] [address] * (ABNORMAL) Basic metabolic panel (01/11/2020 5:26 [...] Final Resul t [facility] ([place]) 1 [facility] Department of Laboratories [place], [place] [id number] * (ABNORMAL) CBC with auto differential (01/11/2020 [...] BLOOD ORDERABLES Final Resul t [facility] ([place]) 1 [facility] [place] [address] * (ABNORMAL) Erythrocyte sedimentation rate (01/11/2020 5:23 AM CDT) Erythrocyte sedimentation rate 54(H) 1 - 20 mm/hr [facility] ([place]) Comment:Testing performed by : [facility], [address] [place] [address], [place]., [address] Blood specimen (specimen) 01/11/2020 5:23 AM CDT 01/11/2020 2:21 PM CDT Abisai Alejandre MD LAB BLOOD ORDERABLES Final Resul t [facility] ([place]) 1 [facility] [place] [address] * CTA Chest W Contrast (01/10/2020 10:13 [...] There are enlarged mediastinal lymph nodes. ??A commercial sales representative precarinal lymph node measures 2.0 x 1.3 cm (axial image 35 of 92). ??A commercial sales representative subcarinal lymph node measures 3.0 x [...] There are enlarged mediastinal lymph nodes. A commercial sales representative precarinal lymph node measures 2.0 x 1.3 cm (axial image 35 of 92). A commercial sales representative subcarinal lymph node measures 3.0 x [...] Result * eGFR (01/10/2020 5:58 AM CDT) [facility] eGFR 81 mL/min/1.7 3 m2 [facility] ([place]) Comment: Interpretive Data Reference Interval Normal ?>/= 90 mL/min/1.73m2 Mildly decreased* ? 60 - 89 mL/min/1.73m2 Mildly to moderately decreased ?45 - 59 mL/min/1.73m2 Moderately to severely decreased ??30 - 44 mL/min/1.73m2 Severely decreased ?15 - 29 mL/min/1.73m2 Kidney Failure ?< 15 ??mL/min/1.73m2 *Relative to young adult level If -Croatian multiply value by 1.16. Estimated glomerular filtration [...] BLOOD ORDERABLES Final Res ult [facility] ([place]) 1 [facility] Department [place] [address] * (ABNORMAL) Differential, auto (01/10/2020 5:58 AM [...] Final Res ult [facility] ([place]) 1 [facility] Department [place] [address] * (ABNORMAL) CBC with auto differential (01/10/2020 5:58 AM CDT) WBC 7.5 3.8 - 9.9 K/cumm [facility] ([place]) Hgb 12.4(L) 13.0 - 17.5 g/dL [facility] ([place]) Hct 36.8(L) 38.9 - 50.3 % [facility] ([place]) Plt 140(L) 150 - 400 K/cumm [facility] ([place]) MPV 10.3 9.1 - 12.3 fL [facility] ([place]) RBC 4.16(L) 4.30 - 5.80 M/cumm [facility] ([place]) MCV 88.5 81.3 - 96.4 fL [facility] ([place]) MCH 29.8 27.1 - 33.3 pg [facility] ([place]) MCHC 33.7 32.3 - 35.7 g/dL [facility] ([place]) RDW CV 13.4 11.1 - 14.9 % [facility] ([place]) RDW SD 43.8 35.7 - 48.1 fL [facility] ([place]) NRBC abs 0.00 0.00 - 0.01 K/cumm [facility] ([place]) Blood specimen (specimen) 01/10/2020 5:58 AM CDT 01/10/2020 6:06 AM CDT us Humble Chester MD LAB BLOOD ORDERABLES Final Res ult [facility] ([place]) 1 [facility] Department [place] [address] * (ABNORMAL) Basic metabolic panel (01/10/2020 5:58 AM CDT) Sodium 133(L) 135 - 145 mmol/L [facility] ([place]) Potassium, pl 3.1(L) 3.3 - 4.9 mmol/L [facility] ([place]) Chloride 93(L) 97 - 110 mmol/L [facility] ([place]) CO2 27 22 - 32 mmol/L [facility] ([place]) Anion gap 14 2 - 15 mmol/L [facility] ([place]) BUN 38(H) 8 - 25 mg/dL [facility] ([place]) Creatinine 0.98 0.80 - 1.30 mg/dL [facility] ([place]) Glucose 145 70 - 199 mg/dL [facility] ([place]) Comment: Interpretive Data Fasting glucose [...] ORDERABLES Final Res ult Performing Organization Address City/[facility]/ZIP Co de Phone Number [facility] ([place]) 1 [facility] [place] [address] * Strep pneumoniae antigen, urine Urine (01/10/2020 4:00 AM CDT) S. pneumoniae Ag Negative Negative [facility] ([place]) Comment:Testing performed by : [facility], [address] [place] [address]., [address] Urine 01/10/2020 4:00 AM CDT 01/10/2020 9:08 AM CDT Beth Kaba MD LAB MICROBIOLOGY - GENER AL ORDERABLES Final Result Performing Organization Address City/[facility]/ZIP Co de Phone Number [facility] ([place]) 1 [facility] [place] [address] * (ABNORMAL) Legionella antigen Urine (01/10/2020 4:00 AM CDT) Legionella Ag Positive( A) Negative [facility] ([place]) Comment: Interpretive Data This test detects only Legionella pneumophila serogroup 1 antigen. ?? Current interpretive data was last revised on 2019. Testing performed by: [facility], [address] [place] [address], [facility], [address] Urine 01/10/2020 4:00 AM CDT 01/10/2020 9:08 AM CDT Beth Kaba MD LAB MICROBIOLOGY - GENER AL ORDERABLES Final Result Performing Organization Address City/[facility] Co de Phone Number [facility] ([place]) 1 [facility] [place] [address] * ECG 12 lead (01/09/2020 10:13 PM CDT) 01/09/2020 10:1 3 PM CDT Narrative [facility] - 01/10/2020 12:17 PM CDT Vent Rate: 63 bpm RR Interval: 946 msec NM Interval: 147 msec QRS Duration: 113 msec QT Interval: 469 msec QTC Interval: 476 msec P-R-T Ina: 71 - 38 - 29 degrees SINUS RHYTHM WITH OCCASIONAL SUPRAVENTRICULAR PREMATURE COMPLEXES MODERATE INTRAVENTRICULAR CONDUCTION DELAY [110+ ms QRS DURATION] PROLONGED QT INTERVAL ABNORMAL ECG Electronically Signed By: Go Meade MD Beth Kaba MD ECG ORDERABLES Final Re sult Performing Organization Address [facility] Co de Phone Number [facility] * (ABNORMAL) BLOOD MISC TO [place] (01/09/2020 7:53 PM CDT) Test name, chem MYCO M. pneumoniae Ab, IgG and IgM, S [facility] ([place]) Misc See Comment(A) [facility] ([place]) Comment: Test ? Result ?? Flag ??Unit ??RefValue M. pneumoniae Ab, IgG and IgM, S ??M. pneumoniae Ab, IgG, S ? Positive ??A ?Negative ??M. pneumoniae Ab, IgM, S ? Negative ? Negative ??M. pneumoniae Ab Interpretation ?Results suggest past exposure. ? ADDITIONAL INFORMATION ?This test has been modified from the parcel post weigher's ?instructions. Its performance characteristics were ?determined by [facility] in a manner consistent with ?CLIA requirements. This test has not been cleared or ?approved by the U.S. Food and Drug Administration. ?Test Performed by: ?[facility] ?[address] [place] [address] ?[address] Security: Samuel Ortiz M.D. Ph.D.; CLIA# [id number] Blood specimen (specimen) 01/09/2020 7:53 PM CDT 01/10/2020 10:30 AM CDT us Abisai Alejandre MD LAB BLOOD ORDERABLES Final Resul t Performing Organization Address City/State/[facility] Co de Phone Number [facility] ([place]) 1 [facility] Department [place] [address] * T4, free (01/09/2020 7:53 PM CDT) Pathologist [facility] Free T4 1.58 0.90 - 1.70 ng/dL [facility] ([place]) Blood specimen (specimen) 01/09/2020 7:53 PM CDT 01/09/2020 8:46 PM CDT Narrative [facility] ([place]) - 01/09/2020 9:48 PM CDT This test was reflexed from a TSH result. Beth Kaba MD LAB BLOOD ORDERABLES Fin al Result Performing Organization Address City/[facility]/ZIP Co de Phone Number [facility] ([place]) 1 [facility] [place] [address] * Ammonia (01/09/2020 7:53 PM CDT) Ammonia 19 10 - 60 mcmol/L [facility] ([place]) Blood specimen (specimen) 01/09/2020 7:53 PM CDT 01/09/2020 8:46 PM CDT Beth Kaba MD LAB BLOOD ORDERABLES Fin al Result Performing Organization Address [facility] de Phone Number [facility] ([place]) [address] [place] [address] [place] [address] * (ABNORMAL) TSH reflex to free T4 (01/09/2020 7:53 PM CDT) TSH 0.09(L) 0.30 - 4.20 mcIUnit/mL [facility] ([place]) Blood specimen (specimen) 01/09/2020 7:53 PM CDT 01/09/2020 8:46 PM CDT Beth Kaba MD LAB BLOOD ORDERABLES Fin al Result Performing Organization Address [facility] Co de Phone Number [facility] ([place]) 1 [facility] [place] [address] * (ABNORMAL) Sodium level (01/09/2020 7:53 PM CDT) Sodium 130(L) 135 - 145 mmol/L [facility] ([place]) Blood specimen (specimen) 01/09/2020 7:53 PM CDT 01/09/2020 8:47 PM CDT Beth Kaba MD LAB BLOOD ORDERABLES Fin al Result Performing Organization Address [facility] Co de Phone Number [facility] ([place]) 1 [facility] [place] [address] * (ABNORMAL) Procalcitonin (01/09/2020 7:53 PM CDT) Procalcitonin 4.3(H) <=0.15 ng/mL [facility] ([place]) Comment: Test Performed by: [facility] [address] [place] [address] Security: Samuel Ortiz M.D. Ph.D.; CLIA# [id number] Blood specimen (specimen) 01/09/2020 7:53 PM CDT 01/09/2020 8:46 PM CDT Beth Kaba MD LAB BLOOD ORDERABLES Fin al Result Performing Organization Address [facility] de Phone Number [facility] ([place]) 1 [facility] [place] [address] * (ABNORMAL) D-dimer, quantitative (01/09/2020 7:53 PM [...] ORDERABLES Fin al Result Performing Organization Address City/[facility]/ZIP Co de Phone Number [facility] ([place]) 1 [facility] [place] [address] * (ABNORMAL) CRP (acute phase) (01/09/2020 7:53 PM CDT) CRP 426.8(H) <=10.0 mg/L [facility] ([place]) Blood specimen (specimen) 01/09/2020 7:53 PM CDT 01/09/2020 8:47 PM CDT Beth Kaba MD LAB BLOOD ORDERABLES Bruce franco Result - Final Performing Organization Address [facility] Co de Phone Number [facility] ([place]) 1 [facility] [place] [address] * (ABNORMAL) Blood gas, arterial (01/09/2020 7:02 PM CDT) pH, Art 7.41 7.35 - 7.45 [facility] ([place]) PCO2, Arterial 46(H) 35 - 45 mmHg [facility] ([place]) PO2, Arterial 39(C) 83 - 108 mmHg [facility] ([place]) Comment:Critical result call ed to and read back by Neva Schroeder ([facility]) on 01/09/2020 19:20:32 CDT to Charley [...] Fin al Result [facility] ([place]) 1 [facility] [place] [address] * COVID-19 Coronavirus RNA Nasopharyngeal (01/09/2020 4:26 PM CDT) COVID-19 RNA Not Detected ELI GUERRERO ([place]) Comment: Interpretive Data Testing performed at [facility] Molecular Infectious Disease Laboratory. The 2019-Novel [...] last revised on 2019. Testing performed by: [facility], 1 [facility] [place] [address] Nasopharyngeal 01/09/2020 4: 26 PM CDT 01/09/2020 10:15 PM CDT Narrative [facility] ([place]) - 01/10/2020 6:01 AM CDT Is the patient experiencing any symptoms consistent with COVID (eg. Fever, cough, shortness of breath)?->Yes What is the reason for testing?->Likely to be admitted Humble Chester MD LAB MICROBIOLOGY - GENERAL ORD ERABLES Final Result [facility] ([place]) 1 [facility] [place] [address] * XR Chest 1 Vw Portable (01/09/2020 [...] Methadone, ur Detected(A) CutOff 300ng/mL [facility] ([place]) Comment: Interpretive Data - Methadone: ??Samples containing [...] ur Not Detected CutOff 25 ng/mL [facility] ([place]) Comment: Interpretive Data - Phencyclidine: ??Samples containing [...] 01/09/2020 11:09 PM CDT Narrative [facility] ([place]) - 01/10/2020 12:37 AM CDT Drug of Abuse screening is performed by immunoassay for medical purposes only. ??This is not to be used for Pain Management purposes. Beth Kaba MD LAB URINE ORDERABLES Fin al Result [facility] ([place]) 1 [facility] Department [place] [address] * (ABNORMAL) Urinalysis, microscopic only (01/09/2020 2:42 PM CDT) WBC, ur 0-5 0 - 5 /HPF [facility] ([place]) RBC, ur 0-2 0 - 2 /HPF [facility] ([place]) Epithelial cells, squamous, ur 1-5 0 - 5 /HPF [facility] ([place]) Bacteria, ur Trace(A) [facility] ([place]) Mucous, ur Present(A) [facility] ([place]) Hyaline casts, ur 1-5 0 - 10 /LPF [facility] ([place]) Culture Reflex Comment Reflex conditions for urine culture (WBC >10) not met. [facility] ([place]) Urine 01/09/2020 2:42 PM CDT 01/09/2020 2:44 PM CDT Humble Chester MD LAB URINE ORDERABLES Final Res ult Performing Organization Address City/[facility]/ZIP Co de Phone Number [facility] ([place]) 1 [facility] [place] [address] * (ABNORMAL) Urinalysis reflex to microscopic and [...] Negative Negative [facility] ([place]) Blood, ur 2+(A) Negative [facility] ([place]) [...] tendency for uric acid stone formation. Source: [facility]. Last revised 06-04-2017 us Humble Chester MD LAB MICROBIOLOGY - GENERAL ORD ERABLES Final Result Performing Organization Address City/[facility]/ZIP Co de Phone Number [facility] ([place]) 1 [facility] [place] [address] * eGFR (01/09/2020 2:13 PM CDT) eGFR 58 mL/min/1.7 3 m2 [facility] ([place]) Comment: Interpretive Data Reference Interval Normal ?>/= 90 mL/min/1.73m2 Mildly decreased* ? 60 - 89 mL/min/1.73m2 Mildly to moderately decreased ?45 - 59 mL/min/1.73m2 Moderately to severely decreased ??30 - 44 mL/min/1.73m2 Severely decreased ?15 - 29 mL/min/1.73m2 Kidney Failure ?< 15 ??mL/min/1.73m2 *Relative to young adult level If -Croatian multiply value by 1.16. Estimated glomerular filtration [...] BLOOD ORDERABLES Final Res ult [facility] ([place]) 1 [facility] Department [place] [address] * (ABNORMAL) Differential, auto (01/09/2020 2:13 PM [...] Final Res ult [facility] ([place]) 1 [facility] Department [place] [address] * Blood culture Blood (01/09/2020 2:13 PM CDT) Report Final Report: No growth [facility] ([place]) Comment:Testing performed by : [facility], [address] [place]., [address] Blood specimen (specimen) 01/09/2020 2:13 PM CDT [...] organism identification may be performed using the DarkWorksigene Gram-Positive Blood Culture Assay. This assay detects microbial DNA in positive blood culture broth via hybridization of target DNA to capture oligonucleotides on a microarray. This assay has been cleared by the [place] Food and Drug Administration and its performance characteristics have been verified by the [facility] Microbiology Laboratory. 5. ?For questions about this culture, contact the Microbiology Laboratory at [phone]. Interpretive data was last revised on 2019. Humble Chester MD LAB MICROBIOLOGY - GENERAL ORD ERABLES Final Result [facility] ([place]) 1 [facility] [place] [address] * Sepsis Lactate w/ Reflex (01/09/2020 2:13 PM CDT) Pathologist [facility] Sepsis Lactate 2.0 0.7 - 2.0 mmol/L [facility] ([place]) Blood specimen (specimen) 01/09/2020 2:13 PM CDT 01/09/2020 2:15 PM CDT Humble Chester MD LAB BLOOD ORDERABLES Final Res ult Performing Organization Address City/[facility]/ZIP Co de Phone Number [facility] ([place]) 1 [facility] [place] [address] * (ABNORMAL) Comprehensive metabolic panel (01/09/2020 2:13 PM CDT) Sodium 131(L) 135 - 145 mmol/L [facility] ([place]) Potassium, pl 3.6 3.3 - 4.9 mmol/L [facility] ([place]) Chloride 88(L) 97 - 110 mmol/L [facility] ([place]) CO2 31 22 - 32 mmol/L [facility] ([place]) Anion gap 12 2 - 15 mmol/L [facility] ([place]) BUN 34(H) 8 - 25 mg/dL [facility] ([place]) Creatinine 1.28 0.80 - 1.30 mg/dL [facility] ([place]) Glucose 140 70 - 199 mg/dL [facility] ([place]) Comment: Interpretive Data Fasting glucose [...] Final Res ult [facility] ([place]) 1 [facility] Department [place] [address] * CBC with auto differential (01/09/2020 2:13 [...] Final Res ult [facility] ([place]) 1 [facility] Department [place] [address] * Blood culture Blood (01/09/2020 2:12 PM CDT) Report Final Report: No growth [facility] ([place]) Comment:Testing performed by : [facility], 1 [facility], [place]., [address] Blood specimen (specimen) 01/09/2020 2:12 PM CDT [...] organism identification may be performed using the DarkWorksigene Gram-Positive Blood Culture Assay. This assay detects microbial DNA in positive blood culture broth via hybridization of target DNA to capture oligonucleotides on a microarray. This assay has been cleared by the [place] Food and Drug Administration and its performance characteristics have been verified by the [facility] Microbiology Laboratory. 5. ?For questions about this culture, contact the Microbiology Laboratory at [phone]. Interpretive data was last revised on 2019. Humble Chester MD LAB MICROBIOLOGY - GENERAL ORD ERABLES Final Result [facility] [place]) 1 [facility] Department [place] [address] documented in this encounter Visit Diagnoses Diagnosis [...] mg, nebulization, Every 4 hours PRN (respiratory therapy technician), wheezing, Starting on Thu01/10/20 at 1446, [...] 2 puff, inhalation, 2 times daily (respiratory therapy technician), First dose on Thu01/09/20 at 2000, [...] mL, nebulization, Every 4 hours PRN (respiratory therapy technician), wheezing, shortness of breath, Starting on [...] mcg tablet Take 88 mcg by mouth electrician master before breakfast 04/12/2018 01/10/2020 methadone (DOLOPHINE) 10 [...] mcg tablet Take 88 mcg by mouth electrician master before breakfast Stop Taking at Discharge 01/17/2020 [...] mcg tablet Take 88 mcg by mouth electrician master before breakfast 0 added in this encounter [...] Dinora Singleton RN) 0810 (Given - Provider: Apoorva Adamson, KURTIS) budesonide-formoteroL (SYMBICORT) 160-4.5 mcg/actuation inhaler 2 puff 2 puff, inhalation, 2 times daily (respiratory therapy technician), First dose on Thu01/09/20 at 2000, Rinse mouth with water after use. Do not swallow. 0731 (Given - Provider: Agustina Ruvalcaba, HEALTH CARE COORDINATOR)1910 (Given - Provider: Corrina Coughlin, HEALTH CARE COORDINATOR) 0711 (Given - Provider: Rishi Mathews, HEALTH CARE COORDINATOR)190 (Given - Provider: Romel Huggins, HEALTH CARE COORDINATOR) 075 (Given - Provider: Elisabeth Meeks, HEALTH CARE COORDINATOR) cefTRIAXone (ROCEPHIN) 2,000 mg/20 mL in sterile [...] Singleton, KURTIS) 0810 (Given - Provider: Apoorva Adamosn, KURTIS) levothyroxine (SYNTHROID) tablet 75 mcg 75 [...] mg, nebulization, Every 4 hours PRN (respiratory therapy technician), wheezing, Starting on Thu01/10/20 at 1446, [...] mL, nebulization, Every 4 hours PRN (respiratory therapy technician), wheezing, shortness of breath, Starting on [...] documented as of this encounter Care Teams Pipelines Laborer Relationship Specialty Start Date End Date Miscellaneous, Not In File PCP - General 04/29/1805/13 documented as of this encounter
== END 2024-05-24 13:25 | disposition home or self-care (01) ==
PROVIDERS: Emergency Provider Nurse Practitioner; PCP Nurse Practitioner Adult Health
DX: S20.211A Contusion of right front wall of thorax, initial encounter (principal); W10.9XXA Fall (on) (from) unspecified stairs and steps, initial encounter; S52.502A Unspecified fracture of the lower end of left radius, initial encounter for closed fracture; M19.90 Unspecified osteoarthritis, unspecified site; J44.9 Chronic obstructive pulmonary disease, unspecified; Z87.891 Personal history of nicotine dependence
CPT/HCPCS: 29125; 71101; 73110; 99214; A4565; G0463

== ENCOUNTER 2024-06-01 14:22 | Outpatient (CLI) | payer MEDICARE, MEDICAID, SELFPAY ==
--- NOTE | ~2024-06-01 | XR_ITS ---
XR hand RT min 3V Ordering provider: Claudia John MD History: . M24.541 - Contracture, right hand . Comparison: September 19, 2023 FINDINGS: BONES: No acute fracture or dislocation. JOINT SPACES: Narrowing of the proximal and distal interphalangeal joints. Subarticular cystic change s are seen. Osteoarthritic changes of the scaphotrapezial and first carpometacarpal joints. Narrowing of the radiocarpal joint. Deformity seen in the right thumb. SOFT TISSUES: Normal. IMPRESSION: No acute osseous abnormality right hand. Highly suggestive polyarticular osteoarthritic changes. Rheumatoid arthritis cannot be excluded. Clin ical and follow-up advised. Reviewed, dictated and finalized at location A. ICAL THERAPY TECHNICIAN IMPRESSION: No acute osseous abnormality right hand. Highly suggestive polyarticular osteoarthritic changes. Rheumatoid arthritis ca nnot be excluded. Clinical and follow-up advised.
== END 2024-06-01 14:23 | disposition home or self-care (01) ==
PROVIDERS: PCP Nurse Practitioner Adult Health; Visit Provider Plastic Surgery
DX: M25.541 Pain in joints of right hand (principal)
CPT/HCPCS: 73130

== ENCOUNTER 2024-06-09 10:49 | Outpatient (RCR) | payer MEDICARE, MEDICAID, SELFPAY ==
--- NOTE | 2024-06-09 12:59 | OTOPEVAL1 ---
Assessment and note entered by Corbin Moya, YOANNA/Radha, T OT Evaluation Report 06/09/23 Diagnosis Right hand contracture Subjective Information Patient reports he was doing some sanding on wood for a few hours and the next morning his hand was a claw . Reports he was unable to extend the fingers and thumb. He states his fingers eventually came back, but his thumb never regained the ability to extend. He has a history of RA. No pain. He presents today for fabrication of a custom orthosis. 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 A hand based thumb spica was fabricated today to help support these structures. MCP is only able to achieve -10 degrees of extension passively and the splint holds his thumb in this position. The IP is free. In the splint the patient is unable to extend the IP, which is concerning for EPL rupture also. No follow up scheduled - plan to keep patient's account open to allow him to return for any splinting modifications/needs x6 weeks. Plan of Care Interventions Check Out for Orthotic/Prosthetic OT Services Indicated Yes Treatment Frequency and 0-1x/week for 6 weeks Duration These treatments will address the objective and functional deficits as defined above. The patient will be advanced safely and appropriately in order for the patient to progress towards his/her prior level of function. Additional exercises will be introduced and as well as a comprehensive home exercise program upon discharge, if needed, ?to ensure carryover of functional gains achieved in the clinic. This treatment plan has been reviewed and agreement upon by the patient.
--- NOTE | 2024-08-19 15:28 | OTOPDC ---
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 A hand based thumb spica was fabricated to help support these structures. Patient did not return for any splinting needs in the past 2 months. Discharging OT.
== END 2024-08-19 16:24 | disposition home or self-care (01) ==
LOC: ANHOT 10:49
PROVIDERS: PCP Nurse Practitioner Adult Health; Visit Provider Plastic Surgery
DX: M24.541 Contracture, right hand (principal)
CPT/HCPCS: 97166; L3913

== ENCOUNTER 2024-06-21 11:20 | Outpatient (CLI) | payer MEDICARE, MEDICAID, SELFPAY ==
--- OUTSIDE RECORDS SUMMARY | 2024-06-21 12:32 | XMS_ITS | Clinical Summary ---
Author Organization [facility] Address [address] [place] [address] Care Team Providers Care Emblem Cutter Name Role Phone Mor Rodriguez MD Primary Care Provider [phone] [phone] Allergies Active Allergy Reactions Criticality Noted Date [...] 1 tablet (75 mcg total) by mouth induction brazer before breakfast 30 tablet 2 0 Active [...] viral hepatitis Depression Melena Legionnaire's disease (CMS/HCC) ([facility]) 2018 Social History Tobacco Use Types Packs/Day [...] on file Legal Sex Male 11:14 AM PUMP MACHINE OPERATOR Gender Identity Not on file Sexual [...] Body Mass Index 19.8 04/17/2021 10:58 AM PUMP MACHINE OPERATOR Plan of Treatment Health Maintenance Due [...] Comments PSA DIAGNOSTIC Routine 05/22/2020 8:59 [address] M[address] CT ABDOMEN PELVIS WO CONTRAST Schedule Routine, Read Routine (OP Routine) 05/22/2020 7:51 AM PUMP MACHINE OPERATOR Abnormal weight loss COLONOSCOPY 11/24/2017 9:42 AM CDT from Last 3 Months or Most Recently Relevant to Health Maintenance Results * PSA diagnostic (05/22/2020 8:59 AM PUMP MACHINE OPERATOR) PSA-Total 0.50 <=5.40 ng/mL [facility] ([place]) Comment: Interpretive Data ?AGE ? SEX ?REFERENCE INTERVAL 0 minutes-150 years ?Female ?None 0 minutes-49 years ? Male ?None ? 50-59 years ? Male ?0-3.90 ? 60-69 years ? Male ?0-5.40 ? 70-79 years ? Male ?0-6.20 ? 80-150 years ?Male ?0-6.20 Current interpretive data last revised 2018. Testing performed by: [facility], [address] [place] [address]., [address] Blood specimen (specimen) 05/22/2020 8:59 AM PUMP MACHINE OPERATOR 05/22/2020 2:20 PM PUMP MACHINE OPERATOR us Mitchell Gutierrez DO LAB BLOOD ORDERABLES Cecilia caruso Result [facility] ([place]) 1 [facility] [place] [address] * CT Abdomen Pelvis WO Contrast (05/22/2020 7:51 AM PUMP MACHINE OPERATOR) Anatomical Region Laterality Modality Body N/A Computed Tomogra phy 05/22/2020 8:05 AM PUMP MACHINE OPERATOR Impressions 05/22/2020 8:28 AM PUMP MACHINE OPERATOR 1. ??Large, debris-filled hiatal hernia present. [...] Felix Galvez M.D. Narrative 05/22/2020 8:28 AM PUMP MACHINE OPERATOR EXAMINATION: CT ABDOMEN PELVIS WO CONTRAST [...] Felix Galvez M.D. us Mitchell Gutierrez DO [facility] CT PROCEDURES Final R esult * COLONOSCOPY (11/24/2017 9:42 AM CDT) Anatomical Region Laterality Modality Other Narrative Procedure Note Dewayne Alaniz MD - 11/24/2017 9:42 AM CDT [facility] [place] Patient Name: Christal Lanza Procedure Date: 11/24/2017 9:42 AM Date of : 1955 Admit Type: Outpatient Age: 62 Gender: Male Attending MD: Dewayne Alaniz MD Room: [facility] ENDOSCOPY CAPSULE Note Status: Finalized Patient [...] passed under direct vision.The Pediatric Colonoscope [id number] was introduced through the anus and advanced [...] 9:42 AM Procedure Code(s): --- Professional --- 32541, Colonoscopy, flexible; with biopsy, single or multiple Diagnosis Code(s): --- Professional --- K64.8, Other hemorrhoids R63.4, Abnormal weight loss R19.7, Diarrhea, unspecified CPT copyright 2017 [employer]. All rights reserved. The codes documented in this report are preliminary and upon manager resource reviewmay be revised to meet current compliance requirements. Recognized by the [employer] for promoting quality in endoscopy Dewayne Alaniz MD ENDOSCOPY PROCEDURES Final Result from Last 3 Months or Most Recently Relevant to Health Maintenance Insurance MEDICARE [facility] HUMANA CHOICE MEDICARE PPO AETNA MEDICARE GOLD IDPA AETNA MEDICARE GOLD IDPA AETNA MEDICARE GOLD Advance Directives For more information, please contact: [phone] * Full Code (Latest Code Status on File) Date Activated Date Inactivated Comments 04/17/2021 11:12 AM 04/17/2021 5:26 PM * Full Code Date Activated Date Inactivated Comments 01/09/2020 5:16 PM 01/17/2020 6:36 PM * Full Code Date Activated Date Inactivated Comments 11/24/2017 8:23 AM 11/24/2017 1:42 PM Care Teams Emblem Cutter Relationship Specialty Start Date End Date Mor Rodriguez MD PCP - General Family Practice 04/17/21
--- OUTSIDE RECORDS SUMMARY | 2024-06-21 12:32 | XMS_ITS | Encounter Summary ---
Author Organization [employer] [facility] Address [address] [place] [phone] Phone Care Team Providers Care Atm Manager Name Role Phone Manuel Browning DO Primary Care Provider [phone]- [phone] Encounter Details Date Type Department Care Team (Late st Contact Info) Description 11/20/2020 Orders Only [facility] [address] [place] [id number] Mj Warren MD Other specified abnormal [...] chemistry documented in this encounter Care Teams Atm Manager Relationship Specialty Start Date End Date Manuel Browning DO [address] [place] [address] PCP - General Family Medicine 11/20/20 documented as of this encounter
--- OUTSIDE RECORDS SUMMARY | 2024-06-21 12:32 | XMS_ITS | Clinical Summary ---
Author Organization [facility] Address [address] [place] [address] Phone Care Team Providers Care Shank Threader Name Role Phone Talia Bergeron APRN, VELVET CUTTER Primary Care Provider + Allergies No known [...] - 1-dose 75+ series) 2029 PSA Discussion Discontinued 08/04/2016 DTaP/Tdap/Td Immunization Discontinued 06/04/2019 TdaP Immunization [...] - 4.00 ng/mL 08/04/2016 5:48 PM CDT [facility] Blood specimen (specimen) Venipuncture / Unknown 08/04/2016 4:52 PM CDT 08/04/2016 4:53 PM CDT Narrative [facility] - 08/04/2016 5:48 PM CDT PSA NOTE: The PSA value should be used in conjunction with information available from clinical evaluation and other diagnostic procedures. Margot Gale MD CHEMISTRY ORDERABLES Final Result [facility] [address] [place] [address] from Last 3 Months or Most Recently Relevant to Health Maintenance Insurance MEDICARE [place]ICAID [place] Care Teams Shank Threader Relationship Specialty Start Date End Date Talia Bergeron, CLINICAL PHARMACY COORDINATOR, VELVET CUTTER [address] [address] PCP - General Advanced Practice Nurse 02/05/16
--- OUTSIDE RECORDS SUMMARY | 2024-06-21 12:32 | XMS_ITS | Clinical Summary ---
Author Organization [facility] Address [address] [address] Phone Care Team Providers Care Results Technician Name Role Phone VeenaManuel zhong Primary Care Provider [phone]- [phone] Social History Tobacco Use Types Packs/Day Years [...] Influenza Vaccine (#1) 2024 Insurance [place]ICAID [place] [facility] ([id number]) Care Teams Results Technician Relationship Specialty Start Date End Date Manuel Browning DO [address] [facility] [address] [place] [address] PCP - General Family Medicine 11/20/20
--- OUTSIDE RECORDS SUMMARY | 2024-06-21 12:32 | XMS_ITS | Clinical Summary ---
Author Organization [facility] Address [address] [place] [address] Care Team Providers Care Retail Services Professional Name Role Phone Talia Bergeron CHESS INSTRUCTOR-HEDIS ABSTRACTOR Primary Care Provider +1 -[phone] Source Comments [employer],non-owned Affiliates and Associated Physician Practices is amultiple site organization consisting of ambulatory clinics and hospital sitesin [place], [place], [place] and [place]. This disclosure is being madepursuant to the Care Everywhere program and may not contain all information available regarding this patient. Last updated 18.[employer] Allergies No known active allergies Medications * [...] Comments Blood Pressure 116/79 07/10/2022 1:30 PM STAFF ELECTRONIC WARFARE OFFICER Pulse 62 07/10/2022 1:30 PM STAFF ELECTRONIC WARFARE OFFICER Temperature 36.8 ??C (98.2 ??F) 07/10/2022 1:10 PM CS T Respiratory Rate 18 07/10/2022 1:30 PM STAFF ELECTRONIC WARFARE OFFICER Oxygen Saturation 94% 07/10/2022 1:30 PM STAFF ELECTRONIC WARFARE OFFICER Inhaled Oxygen Concentration - - Weight 68 kg (150 lb) 07/10/2022 12:36 PM STAFF ELECTRONIC WARFARE OFFICER Height 177.8 cm (5' 10 ) 07/10/2022 12:36 PM STAFF ELECTRONIC WARFARE OFFICER Body Mass Index 21.52 07/10/2022 12:36 PM STAFF ELECTRONIC WARFARE OFFICER Plan of Treatment Health Maintenance Due Date [...] 06/13/1972 DTAP/TDAP/TD VACCINES (1 - Tdap) 1973 PNEUMOCOCCAL VACCINE 50+ (1 of 1 - PCV) 2004 ZOSTER VACCINE (1 of 2) 2004 AAA SCREENING 2019 COVID-19 VACCINE (1 - 2023-2 5 season) 2024 INFLUENZA VACCINE (#1) 2024 DEPRESSION SCREENING 05/25/2024 MEDICARE AWV ? CALENDAR YEAR 2024 Respiratory Syncytial Virus (RSV) Vaccine Pt: [...] patient's age to complete this topic MENINGOCOCCAL (Group B) VACCINE Aged Out No longer eligible based on patient's age to complete this topic MENINGOCOCCAL VACCINE Aged Out No priscila jennifer eligible based on patient's age to complete this topic Care Teams Retail Services Professional Relationship Specialty Start Date End Date Talia Bergeron, CHESS INSTRUCTOR-HEDIS ABSTRACTOR [address] [place], [place] [id number] PCP - General 02/15/15
--- OUTSIDE RECORDS SUMMARY | 2024-06-21 12:32 | XMS_ITS | Referral Summary ---
Author Organization [facility] Address [address] [place] [address] Care Team Providers Care Solderer Assembler Name Role Phone Talia Bergeron TESTING SHAKING SHIPPING-LEATHER SPRAYER Primary Care Provider +1 [phone] Source Comments [facility],non-owned Affiliates and Associated Physician Practices is amultiple site organization consisting of ambulatory clinics and hospital sitesin [place], [place], [place] and [place]. This disclosure is being madepursuant to the Care Everywhere program and may not contain all information available regarding this patient. Last updated 18.[employer] [facility] Allergies No known active allergies Medications * [...] Comments Blood Pressure 116/79 07/10/2022 1:30 PM WHIRLEY OPERATOR Pulse 62 07/10/2022 1:30 PM WHIRLEY OPERATOR Temperature 36.8 ??C (98.2 ??F) 07/10/2022 1:10 PM CS T Respiratory Rate 18 07/10/2022 1:30 PM WHIRLEY OPERATOR Oxygen Saturation 94% 07/10/2022 1:30 PM WHIRLEY OPERATOR Inhaled Oxygen Concentration - - Weight 68 kg (150 lb) 07/10/2022 12:36 PM WHIRLEY OPERATOR Height 177.8 cm (5' 10 ) 07/10/2022 12:36 PM WHIRLEY OPERATOR Body Mass Index 21.52 07/10/2022 12:36 PM WHIRLEY OPERATOR Plan of Treatment Not on file Care Teams Solderer Assembler Relationship Specialty Start Date End Date Talia Bergeron, TESTING SHAKING SHIPPING-LEATHER SPRAYER [address] [place], [place] [id number] PCP - General 02/15/15
--- OUTSIDE RECORDS SUMMARY | 2024-06-21 12:32 | XMS_ITS | Referral Summary ---
Author Organization [facility] Address [address] [place] [address] Care Team Providers Care White Sugar Supervisor Name Role Phone Mor Rodriguez MD Primary Care Provider +1 [phone] Allergies Active Allergy Reactions Criticality Noted Date [...] 1 tablet (75 mcg total) by mouth silk screen printing racker before breakfast 30 tablet 2 0 Active [...] on file Legal Sex Male 11:14 AM GARDE MANAGER Gender Identity Not on file Sexual [...] Body Mass Index 19.8 04/17/2021 10:58 AM GARDE MANAGER Plan of Treatment Not on file Procedures Procedure Name Priority Date/Time Associated Diagnosis Comments PSA DIAGNOSTIC Routine 05/22/2020 8:[address] ABDOMEN PELVIS WO CONTRAST Schedule Routine, Read Routine (OP Routine) 05/22/2020 7:51 AM GARDE MANAGER Abnormal weight loss COLONOSCOPY 11/24/2017 9:42 AM CDT from Last 3 Months or Most Recently Relevant to Health Maintenance Results * PSA diagnostic (05/22/2020 8:59 AM GARDE MANAGER) PSA-Total 0.50 <=5.40 ng/mL [facility] ([place]) Comment: Interpretive Data ?AGE ? SEX ?REFERENCE INTERVAL 0 minutes-150 years ?Female ?None 0 minutes-49 years ? Male ?None ? 50-59 years ? Male ?0-3.90 ? 60-69 years ? Male ?0-5.40 ? 70-79 years ? Male ?0-6.20 ? 80-150 years ?Male ?0-6.20 Current interpretive data last revised 2018. Testing performed by: [facility], [address] [place] [address], [place]., [address] Blood specimen (specimen) 05/22/2020 8:59 AM GARDE MANAGER 05/22/2020 2:20 PM GARDE MANAGER us Mitchell Gutierrez DO LAB BLOOD ORDERABLES Cecilia l Result [facility] ([place]) [address] [facility] Department [place] [address] * CT Abdomen Pelvis WO Contrast (05/22/2020 7:51 AM GARDE MANAGER) Anatomical Region Laterality Modality Body N/A Computed Tomogra phy 05/22/2020 8:05 AM GARDE MANAGER Impressions 05/22/2020 8:28 AM GARDE MANAGER 1. ??Large, debris-filled hiatal hernia present. ??Scattered [...] Felix Galvez M.D. Narrative 05/22/2020 8:28 AM GARDE MANAGER EXAMINATION: CT ABDOMEN PELVIS WO CONTRAST ORDERING [...] chronic/degenerative in nature. Electronically signed by: Felix Glavez M.D. Mitchell Gutierrez DO IMG CT PROCEDURES Final R esult * COLONOSCOPY (11/24/2017 9:42 AM CDT) Anatomical Region Laterality Modality Other Narrative Procedure Note Dewayne Alaniz MD - 11/24/2017 9:42 AM CDT [facility] Patient Name: Christal Lanza Procedure Date: 11/24/2017 9:42 AM Date of : 1955 Admit Type: Outpatient Age: 62 Gender: Male Attending MD: Dewayne Alaniz MD Room: [facility] ENDOSCOPY CAPSULE Note Status: Finalized Patient Profile: 62 WM with unexplained weight loss, and abnormal stool/diarrhea, no family h/o colon cancer. Procedure: Colonoscopy Indications: Last colonoscopy: November 2008, Clinically significant diarrhea of unexplained origin, Weight loss Referring MD: Geovanni Saunders, SECOND FACING BASTER Providers: Dewayne Alaniz MD Impression: - The [...] passed under direct vision.The Pediatric Colonoscope PCF-H190L [id number] was introduced through the anus and advanced [...] 9:42 AM Procedure Code(s): --- Professional --- 61734, Colonoscopy, flexible; with biopsy, single or multiple Diagnosis Code(s): --- Professional --- K64.8, Other hemorrhoids R63.4, Abnormal weight loss R19.7, Diarrhea, unspecified CPT copyright 2017 [employer]. All rights reserved. The codes documented in this report are preliminary and upon computational geneticist reviewmay be revised to meet current compliance requirements. Recognized by the [employer] [employer] for promoting quality in endoscopy Dewayne Alaniz MD ENDOSCOPY PROCEDURES Final Result from Last 3 Months or Most Recently Relevant to Health Maintenance Insurance MEDICARE IDPA HUMANA CHOICE MEDICARE PPO AETNA MEDICARE GOLD IDPA AET MEDICARE [facility] IDPA AET MEDICARE GOLD Advance Directives For more information, please contact: [phone] * Full Code (Latest Code Status on File) Date Activated Date Inactivated Comments 04/17/2021 11:12 AM 04/17/2021 5:26 PM * Full Code Date Activated Date Inactivated Comments 01/09/2020 5:16 PM 01/17/2020 6:36 PM * Full Code Date Activated Date Inactivated Comments 11/24/2017 8:23 AM 11/24/2017 1:42 PM Care Teams White Sugar Supervisor Relationship Specialty Start Date End Date Mor Rodriguez MD PCP - General Family Practice 04/17/21
--- OUTSIDE RECORDS SUMMARY | 2024-06-21 12:32 | XMS_ITS | Patient Health Summary ---
Author Organization [facility] Address [address] [place] [address] Care Team Providers Care Apparel Machinery Instructor Name Role Phone Talia Bergeron ACETYLENE TORCH BURNER-AUDIT PRACTICE INTERN Primary Care Provider [phone] [phone] Note from [facility],non-owned Affiliates and Associated Physician Practices is amultiple site organization consisting of ambulatory clinics and hospital sitesin [place], [place], [place] and [place]. This disclosure is being madepursuant to the Care Everywhere program and may not contain all information available regarding this patient. Last updated 18.[facility] Allergies No known active allergies Medications * [...] Comments Blood Pressure 116/79 07/10/2022 1:30 PM ROLL FINISHER Pulse 62 07/10/2022 1:30 PM ROLL FINISHER Temperature 36.8 ??C (98.2 ??F) 07/10/2022 1:10 PM CS T Respiratory Rate 18 07/10/2022 1:30 PM ROLL FINISHER Oxygen Saturation 94% 07/10/2022 1:30 PM ROLL FINISHER Inhaled Oxygen Concentration - - Weight 68 kg (150 lb) 07/10/2022 12:36 PM ROLL FINISHER Height 177.8 cm (5' 10 ) 07/10/2022 12:36 PM ROLL FINISHER Body Mass Index 21.52 07/10/2022 12:36 PM ROLL FINISHER Procedures * HELICOBACTER PYLORI UREASE (STL)(Performed 07/10/2022) Performed for Diagnosis unknown * [facility] ED EGD FLEX TRANSORAL DX(Performed 07/10/2022) * EGD(Performed 07/10/2022) * XR HAND BILAT 2VW(Performed 02/03/2019) Performed for 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 These results have been appended to a previously preliminary verified report. Microbiology GASTRIC ANTRAL BIOPSY SPECIMEN / Unknown 07/10/2022 1:04 PM ROLL FINISHER 07/10/2022 4:04 PM ROLL FINISHER Gato Renteria MD LAB - MICROBIOLOGY O RDERABLES [facility] [address] [place] [address] * EGD (07/10/2022 11:52 AM ROLL FINISHER) Report Endoscopy POC _ Patient Name: Saravanan [...] Procedure Code(s): ? --- Professional --- ? 31134, Esophagogastrodu odenoscopy, flexible, transoral; with biopsy, ? single or multiple ? --- Technical --- ? 87031, Esophagogastrodu odenoscopy, flexible, transoral; with biopsy, ? [...] of stomach and duodenum CPT copyright 2019 [employer]. All rights reserved. The codes documented in this report are preliminary and upon supervisor fleshing review may be revised to meet current compliance requirements. Dr. Gato Renteria MD Gato Renteria MD 07/10/2022 1:14:43 PM This report has been signed electronically. Number of Addenda: 0 Note Initiated On: 07/10/2022 11:52 AM [facility] 07/10/2022 11:5 2 AM ROLL FINISHER Gato Renteria MD GI PROCEDURE ORDERAB LES [facility] EMILY Trevino [id number] * XR HAND BILAT 2VW (02/03/2019 10:32 [...] PM Kwame Root MD [facility] Care Teams Apparel Machinery Instructor Relationship Specialty Start Date End Date Talia Bergeron, ACETYLENE TORCH BURNER-AUDIT PRACTICE INTERN [address] [place], [place] [phone] PCP - General 02/15/15
[2024-06-21 19:38] LABS: Hematocrit 44.4 % (42.0-52.0); Hemoglobin 13.8 g/dL (14.0-18.0); Mean Corpuscular HGB Conc 31.1 g/dl (32-36); Mean Corpuscular Hemoglobin 30.1 pg (26-34); Mean Corpuscular Volume 96.7 fl (80-100); Platelet Count Result 228 k/mm3 (150-375); Red Blood Count 4.59 M/mm3 (4.6-6.20); Red Cell Distribution Width 14.2 % (11.5-14.5); White Blood Count 7.9 K/mm3 (4.5-10.0)
[2024-06-21 20:05] LABS: Alanine Aminotransferase 27 U/L (6-50); Albumin Level 4.3 g/dL (3.5-5.1); Alkaline Phosphatase 92 U/L (38-126); Anion Gap 11 mmol/L (4-12); Aspartate Amino Transferase 62 U/L (17-59); Bilirubin,Total 0.8 mg/dL (0.2-1.3); Blood Urea Nitrogen 16 mg/dL (9-20); Calcium 9.6 mg/dL (8.4-10.2); Carbon Dioxide 29 mmol/L (22-30); Chloride 102 mmol/L (98-107); Cholesterol 141 mg/dL (0-200); Estimated Glomerular Filt Rate > 60; Glucose 67 mg/dL (65-110); HDL Direct 57 mg/dL; Sodium 142 mmol/L (137-145); Triglycerides 127 mg/dL (<150)
[2024-06-21 20:16] LABS: LDL Cholesterol Direct 51 mg/dL
[2024-06-21 20:36] LABS: Prostate Specific Antigen 0.8 ng/mL (< OR = 4.0)
== END 2024-06-21 11:21 | disposition home or self-care (01) ==
LOC: ANHBWCLAB 11:22
PROVIDERS: PCP Nurse Practitioner Adult Health; Visit Provider Nurse Practitioner Adult Health
DX: E78.5 Hyperlipidemia, unspecified (principal); E07.9 Disorder of thyroid, unspecified; M06.9 Rheumatoid arthritis, unspecified; Z12.5 Encounter for screening for malignant neoplasm of prostate
CPT/HCPCS: 36415; 80053; 80061; 84153; 84443; 85027; G0103

== ENCOUNTER 2024-09-09 16:27 | Outpatient (CLI) | payer MEDICARE, MEDICAID, SELFPAY ==
--- NOTE | ~2024-09-09 | CT_ITS ---
CT Scan of the Chest without Contrast: Clinical Indication: Lung cancer screening, nicotine dependence Technique: Contiguous sections were acquired throughout the chest without intravenous contrast. Dose reduction technique was used on this scan by utilizing automated exposure control and iterative recon struction technique. The dose-length product (DLP) was 81.20 mGy-cm. COMPARISON: 06/29/2023 Findings: There is no evidence of any significant mediastinal, hilar or axillary lymphadenopathy. There are ath erosclerotic calcifications of the aorta and coronary arteries. There is no evidence of pleural or pericardial effusion. Stable emphysematous change with nodular scarring at the right lung apex in particular. Additional le ft upper lobe scarring is also unchanged. There are multiple small peripheral subcentimeter tiny nodu les in the peripheral right upper lobe. There are also peripheral subcentimeter nodules in the lingul a. Images through the upper abdomen reveal very large hiatal hernia, containing the entire stomach, with organoaxial volvulus. There are numerous compression fractures in the visualized thoracal lumbar spine, increased in number and severity from prior exam. There are fractures involving the T4, T5, T6, T7, T8, T9, T11, T12, L1 , L2 levels.. Impression: Lung RADS 2-S: Benign appearance. 12 month follow-up screening CT advised. Peripheral 1-2 mm nodules in the lingula and right upper lobe suggest small airways infectious proces s. Emphysema and biapical scarring, right worse above. Large hiatal hernia containing the entire stomach with organoaxial volvulus. Numerous compression fractures throughout the spine, increased in number and severity. Correlate for osteoporosis versus any possibility of underlying myeloma. Reviewed, dictated and finalized at [facility]. Impression: Lung RADS 2-S: Benign appearance. 12 month follow-up screening CT advised. Peripheral 1-2 mm nodules in the lingula and right upper lobe suggest small air ways infectious process. Emphysema and biapical scarring, right worse above. Large hiatal hernia containing the entire stomach with organoaxial volvulus. Numerous compression fractures throughout the spine, increased in number and se verity. Correlate for osteoporosis versus any possibility of underlying myeloma .
--- OUTSIDE RECORDS SUMMARY | 2024-09-09 16:36 | XMS_ITS | Clinical Summary ---
Author Organization [facility] [employer] Address [address] [place] [address] Care Team Providers Care Manager Ecommerce Name Role Phone Talia Bergeron PEARL TECHNICIAN-SPINNER OPEN END Primary Care Provider [phone] [phone] Source Comments [facility] [employer],non-owned Affiliates and Associated Physician Practices is amultiple site organization consisting of ambulatory clinics and hospital sitesin [place], [place], [place] and [place]. This disclosure is being madepursuant to the Care Everywhere program and may not contain all information available regarding this patient. Last updated [email or web address] Allergies No known active allergies Medications * Be aware that medications may not be up to date on this document. Alwaysverify current medications with the patient. albuterol (Proventil;Vent estrellita) (2.5 MG/3ML) 0.083% nebulizer solution Inhale by mouth 4 times daily as needed for Shortness of Breath or Wheezing Active budesonide-form oterol (Symbicort) 80-4.5 MCG/ACT inhaler Inhale 2 (two) puffs by mouth 2 times daily Active oxyCODONE-aceta minophen (Percocet) 10-325 MG tablet Take 1 (one) [...] at Not on file Legal Sex Male 5:17 PM EXPERIMENTAL MECHANIC ELECTRICAL Gender Identity Not on file Sexual Orientation Not on file Last Filed Vital Signs Vital Sign Reading Time Taken Comments Blood Pressure 116/79 07/10/2022 1:30 PM EXPERIMENTAL MECHANIC ELECTRICAL Pulse 62 07/10/2022 1:30 PM EXPERIMENTAL MECHANIC ELECTRICAL Temperature 36.8 C (98.2 F) 07/10/2022 1:10 PM EXPERIMENTAL MECHANIC ELECTRICAL Respiratory Rate 18 07/10/2022 1:30 PM EXPERIMENTAL MECHANIC ELECTRICAL Oxygen Saturation 94% 07/10/2022 1:30 PM EXPERIMENTAL MECHANIC ELECTRICAL Inhaled Oxygen Concentration - - Weight 68 kg (150 lb) 07/10/2022 12:36 PM EXPERIMENTAL MECHANIC ELECTRICAL Height 177.8 cm (5' 10 ) 07/10/2022 12:36 PM EXPERIMENTAL MECHANIC ELECTRICAL Body Mass Index 21.52 07/10/2022 12:36 PM EXPERIMENTAL MECHANIC ELECTRICAL Plan of Treatment Health Maintenance Due Date [...] VACCINE (1 - 2023-2 5 season) 2024 DEPRESSION SCREENING 05/25/2024 MEDICARE AWV CALENDAR YEAR 2024 INFLUENZA VACCINE (Season Ended) 2025 Respiratory Syncytial Virus (RSV) Vaccine Pt: or [...] to complete this topic MENINGOCOCCAL (Group B) VACC INE SHARED DECISION-MAKING Aged Out No longer eligibl e based on patient's age to complete this topic MENINGOCOCCAL GROUPS A/C/Y/W VACCINE Aged Out No longer eligible b ased on patient's age to complete this topic Insurance MEDICARE MEDICAID LIMITED BENEFIT - [place] MEDICAID LIMITED BENEFIT - [place] AETNA MEDICARE [facility] Care Teams Manager Ecommerce Relationship Specialty Start Date End Date Talia Bergeron, PEARL TECHNICIAN-SPINNER OPEN END [address] [place], [place] [phone] PCP - General 02/15/15
--- OUTSIDE RECORDS SUMMARY | 2024-09-09 16:36 | XMS_ITS | Clinical Summary ---
Author Organization [facility] Address [address] [address] Phone Care Team Providers Care Excelsior Picker Name Role Phone RylanManuel cross Primary Care Provider +1- [phone] Social History Tobacco Use Types Packs/Day Years [...] 68 11/21/2020 2:12 PM CDT Temperature 36.3 C (97.3 F) 11/21/2020 2:12 PM CDT Respiratory Rate 18 11/21/2020 2:12 PM CDT Oxygen Saturation 92% 11/21/2020 2:12 PM CDT Inhaled Oxygen Concentration - - Weight 67.4 kg (148 lb 9.6 oz) 11/21/2020 2:12 P M CDT Height 177.8 cm (5' 10 ) 11/21/2020 2:12 PM CDT Body Mass Index 21.32 11/21/2020 2:12 PM CDT Plan of Treatment Health Maintenance Due Date Last Done Comments Pneumococcal Vaccine: 50+ Years (1 of 2 - PCV) 974 Colorectal Cancer Screening: Annual FOBT 2003 Colorectal Cancer Screening: Colonoscopy 2003 Colorectal Cancer Screening: Sigmoidoscopy 2003 Hepatitis B Vaccine (1 of 3 - Risk 3-dose series) 05/26 Influenza Vaccine (Season Ended) [address] [facility] ([id number]) Care Teams Excelsior Picker Relationship Specialty Start Date End Date Manuel Browning DO [address] [place] [address] PCP - General Family Medicine 11/20/20
--- OUTSIDE RECORDS SUMMARY | 2024-09-09 16:36 | XMS_ITS | Clinical Summary ---
Author Organization [facility] Address [address] [place] [address] Phone Care Team Providers Care Economics Faculty Member Name Role Phone Talia Bergeron APRN, HURRICANE TRACKER Primary Care Provider + Allergies No known [...] 94 08/14/2016 9:11 AM CDT Temperature 36.4 C (97.5 F) 08/14/2016 9:11 AM CDT Respiratory Rate 16 08/14/2016 9:11 AM CDT [...] Immunization (#1) 2024 02/09/2017 SARS-COV-2 Immunization ( season) 2024 01/09/2022, 06/05/2021, 07/25/2020, Additional history [...] - 4.00 ng/mL 08/04/2016 5:48 PM CDT [facility] Blood specimen (specimen) Venipuncture / Unknown 08/04/2016 4:52 PM CDT 08/04/2016 4:53 PM CDT Narrative [facility] - 08/04/2016 5:48 PM CDT PSA NOTE: The PSA value should be used in conjunction with information available from clinical evaluation and other diagnostic procedures. Margot Gale MD CHEMISTRY ORDERABLES Final Result [facility] [address] [place] [address] from Last 3 Months or Most Recently Relevant to Health Maintenance Insurance MEDICARE MEDICAID [place] Care Teams Economics Faculty Member Relationship Specialty Start Date End Date Talia Bergeron, SERVICES ENGINEER, HURRICANE TRACKER [address] [id number] PCP - General Advanced Practice Nurse 02/05/16
--- OUTSIDE RECORDS SUMMARY | 2024-09-09 16:36 | XMS_ITS | Referral Summary ---
Author Organization [facility] Address [address] [place] [address] Care Team Providers Care Teachers' Assistant Name Role Phone Mor Rodriguez MD Primary Care Provider +1 [phone] Allergies Active Allergy Reactions Criticality Noted Date [...] 1 tablet (75 mcg total) by mouth manager user interface before breakfast 30 tablet 2 0 Active [...] status 01/09/2020 Cirrhosis of liver without ascites 01/09/2020 Avulsion of skin of right thumb without complica tion 06/04/2019 Immunization, tetanus-diphtheria 06/04/2019 Closed fracture of right inferior pubic ramus Closed fracture of right superior pubic ramus Unspecified urinary incontinence 04/14/2017 Calculus of urinary bladder 01/27/2017 Overview (09/04/2017): Description: s/p Urolift and bladder stone lithotripsy Legionnaire's disease Immunizations Immunization Administration Dates Next Due Tdap 06/04/2019 Social [...] on file Legal Sex Male 11:14 AM TALLOW REFINER Gender Identity Not on file Sexual Orientation Not on file Last Filed Vital Signs Vital Sign Reading Time Taken Comments Blood Pressure 158/91 11/04/2021 6:20 PM CDT Pulse 80 11/04/2021 6:20 PM CDT Temperature 36.8 C (98.3 F) 11/04/2021 2:33 PM CDT Respiratory Rate 12 11/04/2021 6:20 PM CDT Oxygen Saturation 94% 11/04/2021 6:20 PM CDT Inhaled Oxygen Concentration - - Weight 63.5 kg (140 lb) 11/04/2021 2:33 PM CDT Height 179.1 cm (5' 10.5 ) 04/17/2021 10:[address] Body Mass Index 19.8 04/17/2021 10:58 AM TALLOW REFINER Plan of Treatment Not on file Procedures Procedure Name Priority Date/Time Associated Diagnosis Comments PSA DIAGNOSTIC Routine 05/22/2020 8:[address] ABDOMEN PELVIS WO CONTRAST Schedule Routine, Read Routine (OP Routine) 05/22/2020 7:51 AM TALLOW REFINER Abnormal weight loss COLONOSCOPY 11/24/2017 9:42 AM CDT from Last 3 Months or Most Recently Relevant to Health Maintenance Results * PSA diagnostic (05/22/2020 8:59 AM TALLOW REFINER) PSA-Total 0.50 <=5.40 ng/mL [facility] ([place]) Comment: Interpretive Data AGE SEX REFERENCE INTERVAL 0 minutes-150 years Female None 0 minutes-49 years Male None 50-59 years Male 0-3.90 60-69 years Male 0-5.40 70-79 years Male 0-6.20 80-150 years Male 0-6.20 Current interpretive data last revised 2018. Testing performed by: [facility], [address] [place] [address], [place]., [address] Blood specimen (specimen) 05/22/2020 8:59 AM TALLOW REFINER 05/22/2020 2:20 PM TALLOW REFINER Mitchell Gutierrez DO LAB BLOOD ORDERABLES Cecilia l Result [facility]) [address] [facility] [place] [address] * CT Abdomen Pelvis WO Contrast (05/22/2020 7:51 AM TALLOW REFINER) Anatomical Region Laterality Modality Body N/A Computed Tomogra phy 05/22/2020 8:05 AM TALLOW REFINER Impressions 05/22/2020 8:28 AM TALLOW REFINER 1. Large, debris-filled hiatal hernia present. Scattered [...] Felix Galvez M.D. Narrative 05/22/2020 8:28 AM TALLOW REFINER EXAMINATION: CT ABDOMEN PELVIS WO CONTRAST ORDERING HEALTHCARE PROVIDER: MITCHELL CRAVENBILSabra HISTORY: ABNORMAL WEIGHT LOSS. TECHNIQUE: CT abdomen [...] Felix Galvez M.D. us Mitchell Gutierrez DO [facility] CT PROCEDURES Final R esult * COLONOSCOPY (11/24/2017 9:42 AM CDT) Anatomical Region Laterality Modality Other Narrative Procedure Note Dewayne Alaniz MD - 11/24/2017 9:42 AM CDT [facility] Patient Name: Christal Lanza Procedure Date: 11/24/2017 9:42 AM Date of : 1955 Admit Type: Outpatient Age: 62 Gender: Male Attending MD: Dewayne Alaniz MD Room: [facility] ENDOSCOPY CAPSULE Note Status: Finalized Patient Profile: [...] passed under direct vision.The Pediatric Colonoscope PCF-H190L [id number] was introduced through the anus and advanced [...] 9:42 AM Procedure Code(s): --- Professional --- 66748, Colonoscopy, flexible; with biopsy, single or multiple Diagnosis Code(s): --- Professional --- K64.8, Other hemorrhoids R63.4, Abnormal weight loss R19.7, Diarrhea, unspecified CPT copyright 2017 [employer]. All rights reserved. The codes documented in this report are preliminary and upon orthopedic coder reviewmay be revised to meet current compliance requirements. Recognized by the [employer] for promoting quality in endoscopy Dewayne Alaniz MD ENDOSCOPY PROCEDURES Final Result from Last 3 Months or Most Recently Relevant to Health Maintenance Insurance MEDICARE [facility] HUMANA CHOICE MEDICARE PPO AETNA MEDICARE GOLD IDND AETNA MEDICARE GOLD IDPA AETNA MEDICARE GOLD Advance Directives For more information, please contact: [phone] * Full Code (Latest Code Status on File) Date Activated Date Inactivated Comments 04/17/2021 11:12 AM 04/17/2021 5:26 PM * Full Code Date Activated Date Inactivated Comments 01/09/2020 5:16 PM 01/17/2020 6:36 PM * Full Code Date Activated Date Inactivated Comments 11/24/2017 8:23 AM 11/24/2017 1:42 PM Care Teams Teachers' Assistant Relationship Specialty Start Date End Date Mor Rodriguez MD PCP - General Family Practice 04/17/21
--- OUTSIDE RECORDS SUMMARY | 2024-09-09 16:36 | XMS_ITS | Clinical Summary ---
Author Organization [facility] Address [address] [place] [address] Care Team Providers Care Dining Room Host/Hostess Name Role Phone Mor Rodriguez MD Primary Care Provider +1 -[phone] Allergies Active Allergy Reactions Criticality Noted Date [...] 1 tablet (75 mcg total) by mouth mechanical unit repairer before breakfast 30 tablet 2 0 Active [...] Immunization Administration Dates Next Due Tdap 06/04/2019 Surgical History Surgery Date Site/Laterality Comments COLONOSCOPY 05/25/2008 - 05/24/2009 Medical History Medical History Date Comments Emphysema of lung (HCC) Kidney stone Infectious viral hepatitis Depression Melena Legionnaire's disease (HCC) 2018 Social History Tobacco Use Types Packs/Day [...] on file Legal Sex Male 11:14 AM MILK TANKER DRIVER Gender Identity Not on file Sexual [...] Body Mass Index 19.8 04/17/2021 10:58 AM MILK TANKER DRIVER Plan of Treatment Health Maintenance Due Date Last Done Comments Pneumococcal vaccine 65+ (1 of 2 - PCV) 1973 Zoster Vaccine (1 of 2) 2004 Well Visit 65+ 2019 Depression Screening 01/08/2021 01/09/2020 Fall Risk Assessment 04/17/2022 04/17/2021 Influenza Vaccine (Season Ended) 2025 02/10/20 17 Colon Cancer Screening-Colonoscopy 11/25/2027 11/24/2017 DTaP/Tdap/Td Vaccine (2 - Td or Tdap) 06/04/2029 06/04/2019 Colon Cancer Screening-CT Colonography Discontinued 11/24/2017 Colon Cancer Screening-DNA Stool Discontinued 11/25/19 18 Colon Cancer Screening-FIT Discontinued 11/24/2017 Colon Cancer Screening-Sigmoidoscopy Discontinued 11/24/2017 Hepatitis C Screening Completed 12/22/2019 , 11/16/2019, 01/05/2018, Additional history exists Abdominal Aortic Aneurysm (A AA) Screen Completed 05/22/2020, 01/07/2017 Prostate Cancer Screening-PSA Discontinued 05/22/2020 Procedures Procedure Name Priority Date/Time Associated Diagnosis Comments PSA DIAGNOSTIC Routine 05/22/2020 8:59 [address] ABDOMEN PELVIS WO CONTRAST Schedule Routine, Read Routine (OP Routine) 05/22/2020 7:51 AM MILK TANKER DRIVER Abnormal weight loss COLONOSCOPY 11/24/2017 9:42 AM CDT from Last 3 Months or Most Recently Relevant to Health Maintenance Results * PSA diagnostic (05/22/2020 8:59 AM MILK TANKER DRIVER) PSA-Total 0.50 <=5.40 ng/mL HARPER GUERRERO ([place]) Comment: Interpretive Data AGE SEX REFERENCE INTERVAL 0 minutes-150 years Female None 0 minutes-49 years Male None 50-59 years Male 0-3.90 60-69 years Male 0-5.40 70-79 years Male 0-6.20 80-150 years Male 0-6.20 Current interpretive data last revised 2018. Testing performed by: [facility], [address] [place] [address]., [id number] Blood specimen (specimen) 05/22/2020 8:59 AM MILK TANKER DRIVER 05/22/2020 2:20 PM MILK TANKER DRIVER us Mitchell Gutierrez DO LAB BLOOD ORDERABLES Cecilia l Result HARPER GUERRERO ([place]) 1 [facility] Department [place] [address] * CT Abdomen Pelvis WO Contrast (05/22/2020 7:51 AM MILK TANKER DRIVER) Anatomical Region Laterality Modality Body N/A Computed Tomogra phy 05/22/2020 8:05 AM MILK TANKER DRIVER Impressions 05/22/2020 8:28 AM MILK TANKER DRIVER 1. Large, debris-filled hiatal hernia present. Scattered [...] Felix Galvez M.D. Narrative 05/22/2020 8:28 AM MILK TANKER DRIVER EXAMINATION: CT ABDOMEN PELVIS WO CONTRAST ORDERING [...] Alaniz MD - 11/24/2017 9:42 AM CDT [facility] Patient Name: Christal Lanza Procedure Date: 11/24/2017 9:42 AM Date of : 1955 Admit Type: Outpatient Age: 62 Gender: Male Attending MD: Dewayne Alaniz MD Room: [facility]SU[facility] Note Status: Finalized Patient Profile: 62 WM with unexplained weight loss, and abnormal stool/diarrhea, no family h/o colon cancer. Procedure: Colonoscopy Indications: Last colonoscopy: November 2008, Clinically significant diarrhea of unexplained origin, Weight loss Referring MD: Geovanni Saunders HOUSEKEEPER AND LAUNDRY ASSISTANT Providers: Dewayne Alaniz MD Impression: - The entire examined colon is normal. Biopsied. - Internal hemorrhoids. Recommendation: - Await pathology results. - [facility] - Will need CT abdomen [...] passed under direct vision.The Pediatric Colonoscope PCF-H190L [id number] was introduced through the anus and advanced [...] 9:42 AM Procedure Code(s): --- Professional --- 29515, Colonoscopy, flexible; with biopsy, single or multiple Diagnosis Code(s): --- Professional --- K64.8, Other hemorrhoids R63.4, Abnormal weight loss R19.7, Diarrhea, unspecified CPT copyright 2017 [employer]. All rights reserved. The codes documented in this report are preliminary and upon scabbler reviewmay be revised to meet current compliance requirements. Recognized by the [employer] for promoting quality in endoscopy Dewayne Alaniz MD ENDOSCOPY PROCEDURES Final Result from Last 3 Months or Most Recently Relevant to Health Maintenance Insurance MEDICARE [facility] Address: [address] [address] [place] [address] IDPA HUMANA CHOICE MEDICARE PPO AETNA MEDICARE GOLD IDPA TNA MEDICARE GOLD IDPA AETNA MEDICARE GOLD Advance Directives For more information, please contact: [phone] * Full Code (Latest Code Status on File) Date Activated Date Inactivated Comments 04/17/2021 11:12 AM 04/17/2021 5:26 PM * Full Code Date Activated Date Inactivated Comments 01/09/2020 5:16 PM 01/17/2020 6:36 PM * Full Code Date Activated Date Inactivated Comments 11/24/2017 8:23 AM 11/24/2017 1:42 PM Care Teams Dining Room Host/Hostess Relationship Specialty Start Date End Date Mor Rodriguez MD PCP - General Family Practice 04/17/21
--- OUTSIDE RECORDS SUMMARY | 2024-09-09 16:36 | XMS_ITS | Encounter Summary ---
Author Organization [employer] [facility] Address [address] [place] [phone] Phone Care Team Providers Care Gravity Meter Observer Name Role Phone Manuel Browning DO Primary Care Provider [phone]- [phone] Encounter Details Date Type Department Care Team (Late st Contact Info) Description 11/20/2020 Orders Only [facility] [address] [place] [phone] Mj Warren MD [address] [facility]. [address] [place] [address] Other specified abnormal finding of blood chemistry [...] chemistry documented in this encounter Care Teams Gravity Meter Observer Relationship Specialty Start Date End Date Manuel Browning DO [address] [place] [address] PCP - General Family Medicine 11/20/20 documented as of this encounter
== END 2024-09-09 16:28 | disposition home or self-care (01) ==
LOC: ANHIMG 16:34
PROVIDERS: PCP Nurse Practitioner Adult Health; Visit Provider Nurse Practitioner Family
DX: Z12.2 Encounter for screening for malignant neoplasm of respiratory organs (principal); Z87.891 Personal history of nicotine dependence; R91.8 Other nonspecific abnormal finding of lung field; J43.9 Emphysema, unspecified; K44.9 Diaphragmatic hernia without obstruction or gangrene
CPT/HCPCS: 71271

== ENCOUNTER 2025-04-14 08:24 | Outpatient (CLI) | payer MEDICARE, MEDICAID, SELFPAY ==
--- OUTSIDE RECORDS SUMMARY | 2025-04-14 08:27 | XMS_ITS | Clinical Summary ---
Author Organization [facility] Address [address] [address] Phone Care Team Providers Care Dust Mop Maker Name Role Phone RylanManuel cross Primary Care Provider +1- [phone] Social History Tobacco Use Types Packs/Day Years [...] P M CDT Height 177.8 cm (5' 10) 11/21/2020 2:12 PM CDT Body Mass Index 21.32 11/21/2020 2:12 PM CDT Plan of Treatment Health Maintenance Due Date Last Done Comments Pneumococcal Vaccine: 50+ Years (1 of 2 - PCV) 974 Colorectal Cancer Screening: Annual FOBT 2003 Colorectal Cancer Screening: Colonoscopy 2003 Colorectal Cancer Screening: Sigmoidoscopy 2003 Hepatitis B Vaccine (1 of 3 - Risk 3-dose series) 05/26 Influenza Vaccine (#1) 2025 Insurance Medicaid [place] [facility] ([id number]) Care Teams Dust Mop Maker Relationship Specialty Start Date End Date Manuel Browning DO [address] [facility] [place] [address] PCP - General Family Medicine 11/20/20
--- OUTSIDE RECORDS SUMMARY | 2025-04-14 08:27 | XMS_ITS | Encounter Summary ---
Author Organization [facility] [employer] [facility] Address [address] [place] [phone] Phone Care Team Providers Care Senior Sales Manager Name Role Phone Manuel Browning DO Primary Care Provider +1- [phone] Encounter Details Date Type Department Care Team (Late st Contact Info) Description 11/20/2020 [facility] Only [facility] [address] [place] [phone] Mj Warren MD [address] [facility] [place] [address] Other specified abnormal finding of blood chemistry Social History Tobacco Use Types Packs/Day Years Used Date Smoking Tobacco: Never Assessed Sex and Gender Information Value Date Recorded Sex Assigned at Not on file Legal Sex Male 2:52 PM EDT Gender Identity Not on file Sexual Orientation Not on file documented as of this encounter Functional Status * Question Answer Date of Assessment Author BP 120/70 11/21/2020 2:12 PM EDT Kimberly Mccarty CMA Temp 97.3 11/21/2020 2:12 PM EDT Kimberly Mccarty CMA Pulse 68 11/21/2020 2:12 PM EDT Kimberly Mccarty CMA Resp 18 11/21/2020 2:12 PM EDT Kimberly Mccarty CMA SpO2 92 11/21/2020 2:12 PM EDT Kimberly Mccarty CMA Height 70 11/21/2020 2:12 PM EDT Kimberly Mccarty CMA Weight 2377.6 11/21/2020 2:12 PM EDT Kimberly Mccarty CMA * BMI (Calculated) Answer Date of Assessment Author 21.3 11/21/2020 2:12 PM EDT Kimberly Kaplan CMA * Question Answer Date of Assessment Author BP 120/70 11/21/2020 2:12 PM EDT Kimberly Mccarty CMA Height 70 11/21/2020 2:12 PM EDT Kimberly Mccarty CMA Weight 2377.6 11/21/2020 2:12 PM EDT Kimberly Mccarty CMA * BMI (Calculated) Answer Date of Assessment Author 21.3 11/21/2020 2:12 PM EDT Kimberly Kaplan CMA documented as of this encounter Plan of Treatment Not on file documented as of this encounter Visit Diagnoses Diagnosis Other specified abnormal finding of blood chemistry documented in this encounter Care Teams Senior Sales Manager Relationship Specialty Start Date End Date Manuel Browning DO [address] [facility] [address] [place] [address] PCP - General Family Medicine 11/20/20 documented as of this encounter
--- OUTSIDE RECORDS SUMMARY | 2025-04-14 08:27 | XMS_ITS | Clinical Summary ---
Author Organization [facility] [employer] Address [address] [place] [address] Care Team Providers Care Front End Web Developer Name Role Phone Talia Bergeron CONTROL VALVE MECHANIC-TEST ARCHITECT Primary Care Provider [phone] -[phone] Source Comments [facility] [employer],non-owned Affiliates and Associated Physician Practices is amultiple site organization consisting of ambulatory clinics and hospital sitesin [place], [place], [place] and [place]. This disclosure is being madepursuant to the Care Everywhere program and may not contain all information available regarding this patient. Last updated 18.[employer] Allergies No known active allergies Medications * [...] on file Legal Sex Male 5:17 PM BILLING CUSTOMER SERVICE REPRESENTATIVE Gender Identity Not on file Sexual Orientation Not on file Last Filed Vital Signs Vital Sign Reading Time Taken Comments Blood Pressure 116/79 07/10/2022 1:30 PM BILLING CUSTOMER SERVICE REPRESENTATIVE Pulse 62 07/10/2022 1:30 PM BILLING CUSTOMER SERVICE REPRESENTATIVE Temperature 36.8 C (98.2 F) 07/10/2022 1:10 PM BILLING CUSTOMER SERVICE REPRESENTATIVE Respiratory Rate 18 07/10/2022 1:30 PM BILLING CUSTOMER SERVICE REPRESENTATIVE Oxygen Saturation 94% 07/10/2022 1:30 PM BILLING CUSTOMER SERVICE REPRESENTATIVE Inhaled Oxygen Concentration - - Weight 68 kg (150 lb) 07/10/2022 12:36 PM BILLING CUSTOMER SERVICE REPRESENTATIVE Height 177.8 cm (5' 10) 07/10/2022 12:36 PM BILLING CUSTOMER SERVICE REPRESENTATIVE Body Mass Index 21.52 07/10/2022 12:36 PM BILLING CUSTOMER SERVICE REPRESENTATIVE Plan of Treatment Health Maintenance Due Date [...] (1 of 2) 2004 AAA SCREENING 2019 DEPRESSION SCREENING 05/25/2024 MEDICARE AWV CALENDAR YEAR 2024 COVID-19 VACCINE (1 - 2024-2 6 season) 2025 INFLUENZA VACCINE (#1) 2025 Respiratory Syncytial Virus (RSV) Vaccine Pt: [...] topic Insurance MEDICARE MEDICAID [place] BENEFIT - [place] MEDICAID [place] BENEFIT - [place] AETNA MEDICARE [facility] Care Teams Front End Web Developer Relationship Specialty Start Date End Date Talia Bergeron, CONTROL VALVE MECHANIC-TEST ARCHITECT [address] [place], [place] [id number] PCP - General 02/15/15
--- OUTSIDE RECORDS SUMMARY | 2025-04-14 08:27 | XMS_ITS | Clinical Summary ---
Author Organization [facility] Address [address] [place] [address] Care Team Providers Care Otr Flatbed Driver Name Role Phone Mor Rodriguez MD Primary Care Provider +1 -[phone] Allergies Active Allergy Reactions Criticality Noted Date [...] 1 tablet (75 mcg total) by mouth call circuit worker before breakfast 30 tablet 2 0 Active [...] Medical History Date Comments Emphysema of lung Kidney stone Infectious viral hepatitis Depression Melena [...] on file Legal Sex Male 11:14 AM COAT OPERATOR INSULATOR Gender Identity Not on file Sexual Orientation [...] 2:33 PM CDT Height 179.1 cm (5' 10.5) 04/17/2021 10:[address] Body Mass Index 19.8 04/17/2021 10:58 AM COAT OPERATOR INSULATOR Plan of Treatment Health Maintenance Due Date Last Done Comments Pneumococcal vaccine 65+ (1 of 2 - PCV) 1973 Zoster Vaccine (1 of 2) 2004 Well Visit 65+ 2019 Depression Screening 01/08/2021 01/09/2020 Fall Risk Assessment 04/17/2022 04/17/2021 Influenza Vaccine (#1) 2025 02/09/2017 Colon Cancer Screening-Colonoscopy 11/25/2027 11/24/2017 DTaP/Tdap/Td [...] Comments PSA DIAGNOSTIC Routine 05/22/2020 8:59 AM COAT OPERATOR INSULATOR CT ABDOMEN PELVIS WO CONTRAST Schedule Routine, Read Routine (OP Routine) 05/22/2020 7:51 AM COAT OPERATOR INSULATOR Abnormal weight loss COLONOSCOPY 11/24/2017 9:42 AM CDT from Last 3 Months or Most Recently Relevant to Health Maintenance Results * PSA diagnostic (05/22/2020 8:59 AM COAT OPERATOR INSULATOR) PSA-Total 0.50 <=5.40 ng/mL HARPER GUERRERO ([place]) Comment: Interpretive Data AGE SEX REFERENCE INTERVAL 0 minutes-150 years Female None 0 minutes-49 years Male None 50-59 years Male 0-3.90 60-69 years Male 0-5.40 70-79 years Male 0-6.20 80-150 years Male 0-6.20 Current interpretive data last revised 2018. Testing performed by: [facility], [address] [place] [address]., [address] Blood specimen (specimen) 05/22/2020 8:59 AM COAT OPERATOR INSULATOR 05/22/2020 2:20 PM COAT OPERATOR INSULATOR us Mitchell Gutierrez DO LAB BLOOD ORDERABLES Cecilia l Result HARPER GUERRERO ([place]) [address] [facility] Department [place] [address] * CT Abdomen Pelvis WO Contrast (05/22/2020 7:51 AM COAT OPERATOR INSULATOR) Anatomical Region Laterality Modality Body N/A Computed Tomogra phy 05/22/2020 8:05 AM COAT OPERATOR INSULATOR Impressions 05/22/2020 8:28 AM COAT OPERATOR INSULATOR 1. Large, debris-filled hiatal hernia present. Scattered [...] Felix Galvez M.D. Narrative 05/22/2020 8:28 AM COAT OPERATOR INSULATOR EXAMINATION: CT ABDOMEN PELVIS WO CONTRAST ORDERING [...] Male Attending MD: Dewayne Alaniz MD Room: [facility] ENDOSCOPY CAPSULE Note Status: Finalized Patient Profile: 62 WM with unexplained weight loss, and abnormal stool/diarrhea, no family h/o colon cancer. Procedure: Colonoscopy Indications: Last colonoscopy: November 2008, Clinically significant diarrhea of unexplained origin, Weight loss Referring MD: Geovanni Saunders ART OBJECTS SALESPERSON Providers: Dewayne Alaniz MD Impression: - The entire examined colon is normal. Biopsied. - Internal hemorrhoids. Recommendation: - Await pathology results. - [facility]. - Will need CT abdomen [...] passed under direct vision.The Pediatric Colonoscope PCF-H190L [id number] was introduced through the anus and advanced [...] 9:42 AM Procedure Code(s): --- Professional --- 10816, Colonoscopy, flexible; with biopsy, single or multiple Diagnosis Code(s): --- Professional --- K64.8, Other hemorrhoids R63.4, Abnormal weight loss R19.7, Diarrhea, unspecified CPT copyright 2017 [employer]. All rights reserved. The codes documented in this report are preliminary and upon smasher reviewmay be revised to meet current compliance requirements. Recognized by the [employer] for promoting quality in endoscopy us Dewayne Alaniz MD ENDOSCOPY PROCEDURES Final Result from Last 3 Months or Most Recently Relevant to Health Maintenance Insurance MEDICARE [facility] Address: [address] [address] [place] [address] IDPA HUMANA CHOICE MEDICARE PPO AETNA MEDICARE GOLD IDPA AETNA MEDICARE GOLD IDPA AETNA MEDICARE GOLD Advance Directives For more information, please contact: [phone] * Full Code (Latest Code Status on File) Date Activated Date Inactivated Comments 04/17/2021 11:12 AM 04/17/2021 5:26 PM * Full Code Date Activated Date Inactivated Comments 01/09/2020 5:16 PM 01/17/2020 6:36 PM * Full Code Date Activated Date Inactivated Comments 11/24/2017 8:23 AM 11/24/2017 1:42 PM Care Teams Otr Flatbed Driver Relationship Specialty Start Date End Date Mor Rodriguez MD PCP - General Family Practice 04/17/21
--- OUTSIDE RECORDS SUMMARY | 2025-04-14 08:27 | XMS_ITS | Clinical Summary ---
Author Organization [facility] Address [address] [place] [address] Phone Care Team Providers Care Road Roller Operator Name Role Phone Talia Bergeron APRN, DRYERMAN/WOMAN Primary Care Provider + Allergies No known [...] 9:11 AM CDT Height 177.8 cm (5' 10) 08/14/2016 9:11 AM CDT Body Mass Index 24.11 08/14/2016 9:11 AM CDT Plan of Treatment Health Maintenance Due Date Last Done Comments Cologuard 1999 Colonoscopy 1999 Colorectal Cancer Screening 1999 Immunochemical Fecal Occult Blood 1999 Pneumococcal Immunization (50+ years) (1 of 1 - PCV) 2004 Zoster Immunization (1 of 2) 2004 Hepatitis B Immunization (3 of 3 - 19+ 3-dose series) 02/18/2016 12/24/2015, 04/11/2015 Influenza Immunization (#1) 2025 02/09/2017 SARS-COV-2 Immunization (5 - season) 2025 01/09/2022, 06/05/2021, 07/25/2020, Additional history exists Respiratory Syncytial Virus (RSV) Immunization (Adult) (1 - 1-dose 75+ series) 2029 PSA Discussion Discontinued 08/04/2016 DTaP/Tdap/Td Immunization Discontinued 06/04/2019 TdaP Immunization Completed 06/04/2019 Human Papillomavirus (HPV) Immunization Aged Out No longer eligible based on patient's age to complete this topic Meningococcal Immunization (ACWY) Aged Out No longer [...] - 4.00 ng/mL 08/04/2016 5:48 PM CDT [facility] Blood specimen (specimen) Venipuncture / Unknown 08/04/2016 4:52 PM CDT 08/04/2016 4:53 PM CDT Narrative [facility] - 08/04/2016 5:48 PM CDT PSA NOTE: The PSA value should be used in conjunction with information available from clinical evaluation and other diagnostic procedures. Margot Gale MD CHEMISTRY ORDERABLES Final Result [facility] [address] [place] [address] from Last 3 Months or Most Recently Relevant to Health Maintenance Insurance MEDICARE [place]ICAID [place] Care Teams Road Roller Operator Relationship Specialty Start Date End Date Talia Bergeron, DRY CLIPPER TENDER, DRYERMAN/WOMAN [address] [address] PCP - General Advanced Practice Nurse 02/05/16
--- NOTE | 2025-04-14 13:59 | WPDSIXMINUTE ---
Six Minute Walk Procedure Procedure Performed Pulmonary Stress Test (6 min walk) Six Minute Walk Six Minute Walk: This is a 6 minute walk test. The test was performed and interpreted in accordance with the 2014 ERS/ATS task force guidelines. Findings: The patient's resting room air oxygen saturation measured by pulse oximetry was 92%, the heart rate was 80 bpm, and the modified Susan dyspnea score was 0.5. Patient ambulated for 244 meters and oxygen saturation remained 90 to 92%. At the end of the study the heart rate was 112 bpm and the modified Susan dyspnea score was 1 to 2. The patient did not qualify for supplemental oxygen at rest or with ambulation. There are no prior studies for comparison.
== END 2025-04-14 08:25 | disposition home or self-care (01) ==
PROVIDERS: PCP Nurse Practitioner Adult Health; Visit Provider Nurse Practitioner Family
DX: R06.09 Other forms of dyspnea (principal)
CPT/HCPCS: 94618